=== PATIENT | female | born 1955 | race Caucasian/White ===

== ENCOUNTER 2016-09-14 11:44 | Inpatient (IN) | payer OTHER ==
[~2016-09-14] VITALS: Ht 154.9 cm; Wt 84.0 kg
[~2016-09-14 11:44] MED LIST: ATOR-24 PO; CHOL1CAP57 PO; CLOP1TAB15 PO; CLR10 PO; CYAN100048 PO; DOCU100C31 PO; DONE10TA12 PO; EFF75 PO; GLC/500 PO; INSDGI SC; LEVO88TA3 PO; LOSA25TA18 PO; MIRT15TA3 PO; MULT-506 PO; NXM/40 PO; PREG100C PO; RQP/5 PO; TRAM-10 PO; TRAZ50TA35 PO
[2016-09-14] MEDS ORDERED: ASPI81TA28 PO (12:22)
[2016-09-14] MEDS ORDERED: CYAN100048 PO (12:23)
[2016-09-14] MEDS ORDERED: SODIUM CHLORIDE 0.9% 1000ML 1,000 ML IV ONE (12:30)
[2016-09-14 12:37] LABS: HEMATOCRIT 32.5 % (37-47); MEAN CELL VOLUME 76.7 fL (80-100); MEAN CORPUSCULAR HEMOGLOBIN 24.1 pg (25-34); MEAN CORPUSCULAR HGB CONC 31.4 g/dl (32-36); MEAN PLATELET VOLUME 10.4 fL (7.4-10.4); PLATELET COUNT 209 K/uL (130-400); RED BLOOD COUNT 4.24 M/uL (4.2-5.4); WHITE BLOOD COUNT 14.07 K/uL (4.8-10.8)
[2016-09-14 12:46] LABS: PROTHROMBIN TIME (PATIENT) 11.1 SECONDS (9.0-12.0)
[2016-09-14 13:01] LABS: ALB/GLOB RATIO 0.9 (0.9-2); BUN/CREATININE RATIO 16.7 (10-20); CALCIUM 9.2 mg/dl (8.5-10.1); CREATININE 1.2 mg/dl (0.60-1.20); THYROID STIMULATING HORMONE 1.11 uIu/ml (0.300-4.500)
[2016-09-14 13:04] LABS: VEN BLD GAS O2 SATURATION 73.6 %; VEN BLOOD GAS BASE EXCESS 4.8 mmol/L
[2016-09-14 13:13] LABS: POINT OF CARE TROPONIN I 0.01 ng/ml (0-0.045)
[2016-09-14 13:14] LABS: ANISOCYTOSIS PRESENT; COMPLETE YES; EOSINOPHIL % 0.9 %; LYMPH ABS # 1.72 K/uL (1.2-3.4); LYMPHOCYTE % 12.2 %; NEUTROPHILS % 84.3 %; POLYCHROMASIA 1+; SPHEROCYTE 2+
[2016-09-14 13:15] LABS: POTASSIUM 4.4 mmol/L (3.5-5.1)
[2016-09-14] MEDS ORDERED: ONDANSETRON INJ 2 MG/ML 2 ML VIAL IV STA (13:15)
[2016-09-14 13:51] LABS: URINE APPEARANCE CLEAR (CLEAR); URINE NITRITE POS (NEG); URINE SPECIFIC GRAVITY 1.024 (1.000-1.030); UROBILINOGEN NEG (NEG); ZZURINE CULT IF INDIC CATH NO
[2016-09-14 13:55] LABS: MANUAL MICROSCOPIC REQUIRED? NO; REVIEW REQ? NO; URINE COLOR DK YELLOW
[2016-09-14 13:56] LABS: URINE BILIRUBIN NEG (NEG)
--- NOTE | 2016-09-14 13:59 | DIAGNOSTIC IMAGING REPORT ---
CHEST 2 VIEWS ROUTINE CLINICAL HISTORY: Weakness. Faint Left lower crackles COMPARISON STUDY: No previous studies for comparison. FINDINGS: The bones soft tissues and hemidiaphragms are normal. The cardiomediastinal silhouette is normal. The lungs are clear. The pulmonary vasculature is normal. IMPRESSION: Negative chest. Electronically signed by: Chris Toth M.D. 09/14/2016 1:58 PM Dictated Date/Time: 09/14/2016 1:56 PM
[2016-09-14] MEDS ORDERED: LEVAQUIN 750MG / 150ML D5W IV ONE (14:00)
[2016-09-14 14:01] LABS: CKMB/CK RATIO 0.6 (0-3.0); MAGNESIUM 2.1 mg/dl (1.8-2.4)
--- NOTE | 2016-09-14 14:16 | EMERGENCY ROOM VISIT NOTE ---
ED Visit Note First contact with patient: 12:10 This Patient was discussed with the physician Mortgage Servicing Specialist, Gus Mejia PA-C. The pertinent historical and physical exam findings were confirmed. I agree with the studies ordered and with the interpretations of these studies. I agree with the disposition and care plan.
[2016-09-14 15:09] VITALS: BP 119/69; PULSE 90; TEMP 36.6; O2SAT 94; Ht 154.9 cm; Wt 84.0 kg
[2016-09-14] MEDS ORDERED: DEXTROSE 50% 50 ML SYR IV PRN (15:15)
[2016-09-14] MEDS ORDERED: GLUCOSE 40% GEL 15 GM TUBE PO PRN (15:15)
[2016-09-14] MEDS ORDERED: GLUCAGON FOR INJ 1 MG VIAL SQ PRN (15:15)
[2016-09-14] MEDS ORDERED: ACETAMINOPHEN 325 MG TAB PO PRN (15:15)
[2016-09-14] MEDS ORDERED: TRAMADOL HCL 50 MG TAB PO PRN (15:15)
[2016-09-14] MEDS ORDERED: GLUCOSE 10 TABS/TUBE PO PRN (15:15)
[2016-09-14] MEDS ORDERED: ONDANSETRON INJ 2 MG/ML 2 ML VIAL IV PRN (15:15)
[2016-09-14] MEDS ORDERED: PHARMACY GLYCEMIC MGMT CONSULT SCH (16:09)
--- NOTE | 2016-09-14 16:10 | History and Physical ---
History & Physical Date & Time of Service: Sep 14, 2016 at 15:16 Chief Complaint: Weak/Nausea Primary Care Physician: Oseas Macdonald III, M.D. History of Present Illness Source: patient, family (daughter in law at bedside), clinic records This is a 61 y/o female with PMH of CVA in 2014 on ASA and Plavix, DM type 2, gastroparesis, GERD, fatty liver, hypothyroidism, depression, and other problems listed below who presents to the ED with generalized weakness and nausea. Pt's daughter in law reports recent severe constipation over past few weeks and bright red blood per rectum. She was found to have iron deficiency anemia with Hg of 8.5 on 09/05/16. She was transfused on 09/06/16. She was seen by Gaye Live of GI two days ago at which time Hg improved to 10.5. She was noted to be Hemoccult positive. She is scheduled for abdominal US, EGD, and colonoscopy. As per daughter in law patient was doing well aside from ongoing fatigue yesterday when caregiver assessed her. Then over past 24 hours she developed weakness and nausea. At baseline she has RLE> LLE weakness but today has increased weakness in bilateral legs. Usually she can ambulate unassisted or with cane but today she was unable to get out of her chair. Denies vomiting or abdominal pain. She ate normally yesterday and had cereal this morning. Constipation has improved on stool softener- now having 1 BM every 3 days. She did have watery stool yesterday and today. No further bright red blood per rectum in past few days. Pt has chronic speech difficulty secondary to prior CVA which is unchanged. She admits to feeling cold. She was afebrile when checked by caregiver and in ER. Pt denies weight change, dizziness, blurred vision, numbness, URI symptoms, cough, CP, SOB, dysuria, frequency, urgency, wounds or rash. Past Medical/Surgical History Medical Problems: (1) Anxiety Status: Chronic (2) Carotid stenosis Status: Chronic (3) CREST syndrome Status: Chronic (4) CVA (cerebral infarction) Permanent Comment: 2014 in perioperative setting Status: Chronic (5) DJD (degenerative joint disease), lumbar Status: Chronic (6) DM type 2 (diabetes mellitus, type 2) Status: Chronic (7) Esophagitis Status: Chronic (8) Gastroparesis Status: Chronic (9) Hyperlipidemia Status: Chronic (10) Hypothyroidism Status: Chronic (11) Iron deficiency anemia Status: Chronic (12) Kidney stone Status: Resolved (13) Myalgia and myositis Status: Chronic (14) PVD (peripheral vascular disease) Status: Chronic Surgical Problems: (1) H/O foot surgery Status: Chronic (2) History of hysterectomy Status: Chronic (3) History of spinal fusion Status: Chronic (4) S/P appendectomy Status: Resolved Family History Diabetes mellitus MOTHER FH: cancer FATHER (lung CA) MOTHER (breast and uterine CA) Social History Smoking Status: Former Smoker (quit in 2010. prior 1 ppd x 32 y) Alcohol Use: occasionally (rare) Drug Use: none Marital Status: single Housing status: lives alone ([facility] caregiver assistance 11a-5p daily) Occupational Status: unemployed Immunizations History of Influenza Vaccine: N/A History of Tetanus Vaccine?: No History of Pneumococcal: Unknown History of Hepatitis B Vaccine: No Multi-Drug Resistant Organisms History of MDRO: No Allergies Coded Allergies: Clarithromycin (Verified Allergy, Unknown, FEEL WEIRD, 09/14/16) Home Medications Scheduled Aspirin (Aspirin Ec), 81 MG PO DAILY Atorvastatin (Lipitor), 80 MG PO HS Clopidogrel (Plavix), 75 MG PO QAM Docusate Sodium (Docusate Sodium), 1 CAP PO BID Donepezil Hydrochloride (Aricept), 10 MG PO HS Esomeprazole Magnesium (Nexium), 40 MG PO QAM Insulin Glargine (Lantus), 58 UNITS SC QAM Levothyroxine Sodium (Levothyroxine Sodium), 88 MCG PO QAM Loratadine (Claritin), 10 MG PO HS Losartan Potassium (Cozaar), 25 MG PO QAM Metformin Hcl (Glucophage), 500 MG PO BID Mirtazapine (Remeron), 30 MG PO HS Multivitamin (Multivitamin), 1 TAB PO QAM Pregabalin (Lyrica), 100 MG PO BID Ropinirole Hydrochloride (Requip), 0.5 MG PO HS Trazodone Hcl (Trazodone), 50 MG PO HS Venlafaxine Hcl (Effexor), 75 MG PO DAILY Scheduled PRN Tramadol (Ultram), 50 MG PO Q6 PRN for Pain Review of Systems Ten point ROS performed with pertinent positives and negatives noted in HPI. Physical Exam Vital Signs Date Time Temp Pulse Resp B/P Pulse Ox O2 Delivery O2 Flow Rate FiO2 09/14/16 13:15 85 18 119/69 95 Room Air 09/14/16 11:56 93 Room Air 09/14/16 11:52 36.6 93 21 103/66 96 Room Air General Appearance: WD/WN, no apparent distress, + pertinent finding (mildly ill appearing 61 year old female, not in distress, daughter in law at bedside) Head: normocephalic, atraumatic Eyes: normal inspection, PERRL, EOMI ENT: hearing grossly normal, pharynx normal Neck: supple, trachea midline Respiratory/Chest: lungs clear, normal breath sounds, no respiratory distress Cardiovascular: regular rate, rhythm, no murmur, normal peripheral pulses Abdomen/GI: normal bowel sounds, soft, + pertinent finding (tender in RUQ and RLQ. figueroa sign negative. ) Extremities/Musculoskelatal: no calf tenderness, no pedal edema Neurologic/Psych: alert, normal mood/affect, oriented x 3, + pertinent finding (expressive aphasia at baseline per daughter in law; no facial droop; no focal motor deficit of upper extremities. R >L LE weakness, able to lift bilateral legs against gravity) Skin: normal color, warm/dry Diagnostics Laboratory Results Results Past 24 Hours Test 09/14/16 11:55 09/14/16 12:47 09/14/16 12:55 09/14/16 12:56 Range/Units White Blood Count 14.07 4.8-10.8 K/uL Red Blood Count 4.24 4.2-5.4 M/uL Hemoglobin 10.2 12.0-16.0 g/dL Hematocrit 32.5 37-47 % Mean Corpuscular Volume 76.7 80-100 fL Mean Corpuscular Hemoglobin 24.1 25-34 pg Mean Corpuscular Hemoglobin Concent 31.4 32-36 g/dl Platelet Count 209 130-400 K/uL Mean Platelet Volume 10.4 7.4-10.4 fL RDW Standard Deviation 55.7 36.4-46.3 fL RDW Coefficient of Variation 21.2 11.5-14.5 % Nucleated RBC Absolute Count (auto) 0.19 0-0 K/uL Neutrophils % (Manual) 84.3 % Lymphocytes % (Manual) 12.2 % Monocytes % (Manual) 2.6 % Eosinophils % (Manual) 0.9 % Nucleated Red Blood Cells % 1.4 % Neutrophils # (Manual) 11.86 1.4-6.5 K/uL Total Absolute Neutrophils 11.86 1.4-6.5 K/uL Lymphocytes # (Manual) 1.72 1.2-3.4 K/uL Total Absolute Lymphocytes 1.72 1.2-3.4 K/uL Monocytes # (Manual) 0.37 0.11-0.59 K/uL Eosinophils # (Manual) 0.13 0-0.5 K/uL Polychromasia 1+ Anisocytosis PRESENT Spherocytes 2+ Prothrombin Time 11.1 9.0-12.0 SECONDS Prothromb Time International Ratio 1.0 0.9-1.1 Activated Partial Thromboplast Time 26.1 21.0-31.0 SECONDS Partial Thromboplastin Ratio 1.0 Sodium Level 139 136-145 mmol/L Potassium Level 4.4 3.5-5.1 mmol/L Chloride Level 101 98-107 mmol/L Carbon Dioxide Level 27 21-32 mmol/L Anion Gap 11.0 3-11 mmol/L Blood Urea Nitrogen 20 7-18 mg/dl Creatinine 1.20 0.60-1.20 mg/dl Est Creatinine Clear Calc Drug Dose 48.4 ml/min Estimated GFR () 56.5 Estimated GFR (Non- 48.7 BUN/Creatinine Ratio 16.7 10-20 Random Glucose 213 70-99 mg/dl Calcium Level 9.2 8.5-10.1 mg/dl Magnesium Level 2.1 1.8-2.4 mg/dl Total Bilirubin 1.8 0.2-1 mg/dl Aspartate Amino Transf (AST/SGOT) 101 15-37 U/L Alanine Aminotransferase (ALT/SGPT) 33 12-78 U/L Alkaline Phosphatase 129 45-117 U/L Total Creatine Kinase 200 26-192 U/L Creatine Kinase MB 1.1 0.5-3.6 ng/ml Creatine Kinase MB Ratio 0.6 0-3.0 Total Protein 8.0 6.4-8.2 gm/dl Albumin 3.8 3.4-5.0 gm/dl Globulin 4.2 2.5-4.0 gm/dl Albumin/Globulin Ratio 0.9 0.9-2 Thyroid Stimulating Hormone (TSH) 1.110 0.300-4.500 uIu/ml Chemistry Specimen Hemolysis Bedside Lactic Acid Venous 2.11 0.90-1.70 mmol/L Venous Blood pH 7.44 7.36-7.41 Venous Blood Partial Pressure CO2 45 38.0-50.0 mmHg Venous Blood Partial Pressure O2 41 mmHg Venous Blood HCO3 30 mmol/L Venous Blood Oxygen Saturation 73.6 % Venous Blood Base Excess 4.8 mmol/L Bedside Troponin I 0.010 0-0.045 ng/ml FC-[id number]-Type Natriuretic Peptide 104 0-900 pg/ml Test 09/14/16 13:25 09/14/16 15:10 Range/Units Urine Color DK YELLOW Urine Appearance CLEAR CLEAR Urine pH 5.0 4.5-7.5 Urine Specific Berkey 1.024 1.000-1.030 Urine Protein 1+ NEG Urine Glucose (UA) NEG NEG Urine Ketones NEG NEG Urine Occult Blood 1+ NEG Urine Nitrite POS NEG Urine Bilirubin NEG NEG Urine Urobilinogen NEG NEG Urine Leukocyte Esterase SMALL NEG Urine WBC (Auto) 1-5 0-5 /hpf Urine RBC (Auto) 0-4 0-4 /hpf Urine Hyaline Casts (Auto) 1-5 0-5 /lpf Urine Epithelial Cells (Auto) 5-10 0-5 /lpf Urine Bacteria (Auto) NEG NEG Microbiology Results 09/14/16 Blood Culture, Received Pending 09/14/16 Blood Culture, Received Pending Diagnostic Radiology CHEST 2 VIEWS ROUTINE CLINICAL HISTORY: Weakness. Faint Left lower crackles COMPARISON STUDY: No previous studies for comparison. FINDINGS: The bones soft tissues and hemidiaphragms are normal. The cardiomediastinal silhouette is normal. The lungs are clear. The pulmonary vasculature is normal. IMPRESSION: Negative chest. EKG NSR, 87 bpm, nonspecific T wave abnormality in lateral leads, slightly more pronounced in lead I when compared to prior EKG Impression Assessment and Plan GENERALIZED WEAKNESS Initially met SIRS criteria with leukocytosis; borderline HR in 90s; POC lactic acid 2.1 -> repeat lactate pending; Afebrile; HD stable R/o infection- CXR clear; UA mildly abnormal but no urinary sx; check urine culture; blood cultures pending Received Levaquin and IVF's in ER Continue gentle IVF's Check CT head to r/o intracranial abnormality given hx of CVA PT and OT consults NAUSEA/ RUQ TENDERNESS AST trending up from recent outpatient labs on 09/12; alk phos and bilirubin continue to be elevated Check abdominal ultrasound Clear liquid diet for now Consider GI consult pending results of US HISTORY OF CVA Continue aspirin, Plavix, statin IRON DEFICIENCY ANEMIA In setting of rectal bleeding; no further bleeding in past few days S/p transfusion 09/06/16 Hg is stable from outpatient labs 09/12 EGD/ [place] scheduled for 10/03/16 DM TYPE 2 Reports of hypoglycemia at home Hold metformin On Lantus 58 units daily at home Consult pharmacy for glycemic management HYPERTENSION Stable; continue losartan GERD Continue PPI DVT PROPHYLAXIS SCDs CODE STATUS Full code per my discussion with the patient Patient seen in collaboration with Dr. Hodge. Please see her addendum. I have seen, examined and discussed this patient with Jami Scanlon and I agree with the above note. Patient presented with generalized weakness x2 days, worse today. Patient lives alone, has a caregiver, and normally ambulates independently. Patient was seen by home nurse yesterday, per daughter in law, with a normal check up. Patient does have a h/o CVA, with residual speech difficulties and right sided weakness. Today, the patient states that she just feels weak all over. She denies any fevers, chills, dysuria. She denies any abdominal pain, except on examination. She does endorse a several week h/o intermittent nausea. She reports a normal appetite and normal PO intake. She denies any vomiting. Vitals reviewed. PE: General- awake; alert; NAD Eyes- EOMI; no scleral icterus ENT- moist mucous membranes Neck- no stridor; trachea midline Lungs- CTA bilaterally; no wheezes/crackles Heart- RRR; no m/r/g Abdomen- soft; RUQ tenderness to palpation; no guarding; ND; nBS Back- no gross abnormalities Extremities- no c/c/e; no deformity Neuro- RUE and RLE strength 3/5; LUE and LLE 4+/5; slow speech Skin- no appreciable rash Labs, imaging and EKG reviewed. Generalized weakness - CT head pending (given h/o previous stroke). Urinalysis with +nitrate. Urine and blood cultures pending. CXR negative. Patient received a dose of Levaquin in the ED. Will hold on continuing antibiotics until culture data and additional imaging resulted as no clear source at this time. RUQ pain/nausea/LFT abnormality - LFT's were normal on 09/05. Elevated bilirubin and AST on 09/12 and elevated again on admission. GI had been planning on outpatient abdominal ultrasound. Will do here. Pending results may consider GI consult. Low clinical suspicion for cholecystitis at this time (ongoing issue, symptoms are not new, afebrile and normal vitals). Patient did also receive a dose of Levaquin in the ED; will hold on continuing pending additional test results. Continue home medications with the exception of holding metformin. Glycemic pharmacy consulted. VTE Prophylaxis VTE Risk Assessment Done? Y/N: Yes Risk Level: Moderate
--- NOTE | 2016-09-14 16:28 | Pharmacy Progress Note ---
Glycemic Control Intl Consult Date of Service Sep 14, 2016. Scope Glycemic Pharmacist consulted by Ileana Scanlon PA-C on 09/14/16 for glycemic control and to write orders per [facility] inpatient glycemic control protocol Objective Weight (Kilograms): 84.000 Accuchecks BSG (last 24hrs): Test 09/14/16 11:55 Random Glucose 213 mg/dl (70-99) Laboratory Data (last 24hrs) Test 09/14/16 11:55 Anion Gap 11.0 mmol/L BUN/Creatinine Ratio 16.7 Blood Urea Nitrogen 20 mg/dl Creatinine 1.20 mg/dl Potassium Level 4.4 mmol/L Sodium Level 139 mmol/L White Blood Count 14.07 K/uL Red Blood Count 4.24 M/uL Hemoglobin 10.2 g/dL Hematocrit 32.5 % Mean Corpuscular Volume 76.7 fL Mean Corpuscular Hemoglobin 24.1 pg Mean Corpuscular Hemoglobin Concent 31.4 g/dl Platelet Count 209 K/uL Mean Platelet Volume 10.4 fL Recent Pertinent Medications Outpatient Anti-diabetic Regimen: * Lantus 58 units QAM * Metfomrin 500mg PO BID * A1c = 7.2 % 08/25/15 Risk Factors for Insulin Resistance: * Infection: IV Levaquin, weakness, possible infection * Diet: Clears Assessment & Plan ASSESSMENT: * 61 yo type 2 diabetic, unknown control, latest A1c from a year ago was 7.2%, pt reports hypoglycemia at home. Admitted with nausea and weakness, recent diagnosis of iron deficient anemia. * Patient had her home dose of Lantus this morning at home (58 units), I will begin a reduced dose tomorrow morning, based on BSG, as this dose is covering her basal and prandial needs, and patient has had hypoglycemia at home. * ADA & AACE recommend a goal blood sugar range 140-180 mg/dl for the majority of critically ill & non-critically ill patients. However, more stringent targets may be selected in individual cases. I will start with this range to prevent hypoglycemia. Patient's BSG 213mg/dL on admission. PLAN FOR INPATIENT GLYCEMIC CONTROL: * A1c with AM labs * Holding outpatient oral diabetes medications * Basal insulin with LANTUS based on AM BSG * BSG < 100mg/dL - HOLD Lantus * BSG 100-180mg/dL - 40 units SQ Qam * BSG > 180mg/dL - 60 units SQ Qam * Correctional Insulin with NOVOLOG per scale ACHS or Q6hrs while NPO and at 0200 overnight tonight * Goal Range: Low 140 mg/dL - High 180 mg/dL * Correction Factor: 30 mg/dL/unit * Nutritional / Prandial insulin per carb ratio of 1 unit per 10 grams CHO consumed * Please note that the plan above was derived based on current level of insulin resistance and hospital stress. These recommendations are appropriate for inpatient admission only. Plan of care upon discharge will need to be reassessed to avoid potential outpatient hypo/hyperglycemia. Thank you.
[2016-09-14] MEDS: INSULIN ASPART 100 UNITS/ML 3 ML PEN SC SCH ×2 (17:00→20:58)
[2016-09-14 18:30] VITALS: BP 161/82; PULSE 85; TEMP 36.7; O2SAT 90
--- NOTE | 2016-09-14 18:35 | DIAGNOSTIC IMAGING REPORT ---
ULTRASOUND ABDOMEN COMPLETE CLINICAL HISTORY: Nausea. Generalized weakness.. COMPARISON STUDY: No priors. TECHNIQUE: Real-time, grayscale, and color flow sonography of the abdomen was performed. Images are reviewed in the transverse and longitudinal planes. FINDINGS: Liver: The liver is mildly enlarged and demonstrates diffusely increased echotexture consistent with hepatic steatosis. There is no intrahepatic biliary ductal dilatation. The main portal vein is patent. Gallbladder: The gallbladder is normal in appearance. No gallstones are identified. There is no gallbladder wall thickening or pericholecystic fluid. A sonographic San's sign is reportedly absent. The common bile duct measures up to 0.4 cm in diameter. Pancreas: The pancreas is suboptimally assessed. Visualized portions of the pancreatic head and body are grossly normal in appearance. Spleen: The spleen is mildly enlarged, measuring 13.3 cm in length. The splenic vein is patent. Kidneys: The kidneys demonstrate cortical atrophy. There is no hydronephrosis. The right kidney measures 10.3 cm in length and the left kidney measures 11.3 cm in length. No shadowing calculi are identified. Abdominal vasculature: The imaged IVC is normal in appearance. The abdominal aorta was not well visualized. Ascites: None. IMPRESSION: 1. Hepatomegaly and hepatic steatosis. 2. No gallstones are identified. 3. The kidneys demonstrate cortical atrophy and are without hydronephrosis. Electronically signed by: Christopher Zuniga M.D. 09/14/2016 6:34 PM Dictated Date/Time: 09/14/2016 6:32 PM
--- NOTE | 2016-09-14 19:23 | EMERGENCY ROOM VISIT NOTE ---
History First contact with patient: 12:10 Chief Complaint: WEAKNESS Stated Complaint: GENERALIZED WEAKNESS Nursing Triage Summary: Patient is post blood transfusion x1 week and reports weakness and not eating for the last day. History of Present Illness The patient is a 61 year old female who presents to the Emergency Room with complaints of worsening weakness over the past one day. The patient is accompanied by 2 family members as well as her in-home caregiver. The patient has a past history of stroke that makes it difficult for her to speak. The patient has a recent history of constipation symptoms and anemia that did require transfusion about 1 week ago. The patient has upcoming appointments with GI for scoping and outpatient imaging studies. The patient is typically self-sufficient at home for 18 hours a day. She is diabetic and is able to control her sugars with insulin and diet. The patient does have 6 hours of in- home care every day, and the caregiver states the patient was not able to get up out of bed or her chair today. Usually the patient does not have difficulty with ambulation or self-care, but that is not the case today. The patient has not reportedly had a fever or cough. No distinct chest pain. She has had ongoing abdominal cramping from her constipation, but this does improve with bowel movements. No reported urinary discomfort. The patient rates her discomfort a 4/10. Review of Systems More than 10 systems were reviewed and otherwise negative with the exception of history of present illness. Past Medical/Surgical History Medical Problems: (1) Anxiety (2) Carotid stenosis (3) CREST syndrome (4) CVA (cerebral infarction) (5) DJD (degenerative joint disease), lumbar (6) DM type 2 (diabetes mellitus, type 2) (7) Esophagitis (8) Gastroparesis (9) Generalized weakness (10) Hyperlipidemia (11) Hypothyroidism (12) Iron deficiency anemia (13) Kidney stone (14) Myalgia and myositis (15) PVD (peripheral vascular disease) Surgical Problems: (1) H/O foot surgery (2) History of hysterectomy (3) History of spinal fusion (4) S/P appendectomy Family History Diabetes mellitus MOTHER FH: cancer FATHER (lung CA) MOTHER (breast and uterine CA) Social History Smoking Status: Former Smoker (quit in 2010. prior 1 ppd x 32 y) Alcohol Use: occasionally Drug Use: none Marital Status: single Housing Status: lives with family Occupation Status: unemployed Current/Historical Medications Scheduled Aspirin (Aspirin Ec), 81 MG PO DAILY Atorvastatin (Lipitor), 80 MG PO HS Clopidogrel (Plavix), 75 MG PO QAM Docusate Sodium (Docusate Sodium), 1 CAP PO BID Donepezil Hydrochloride (Aricept), 10 MG PO HS Esomeprazole Magnesium (Nexium), 40 MG PO QAM Insulin Glargine (Lantus), 58 UNITS SC QAM Levothyroxine Sodium (Levothyroxine Sodium), 88 MCG PO QAM Loratadine (Claritin), 10 MG PO HS Losartan Potassium (Cozaar), 25 MG PO QAM Metformin Hcl (Glucophage), 500 MG PO BID Mirtazapine (Remeron), 30 MG PO HS Multivitamin (Multivitamin), 1 TAB PO QAM Pregabalin (Lyrica), 100 MG PO BID Ropinirole Hydrochloride (Requip), 0.5 MG PO HS Trazodone Hcl (Trazodone), 50 MG PO HS Venlafaxine Hcl (Effexor), 75 MG PO DAILY Scheduled PRN Tramadol (Ultram), 50 MG PO Q6 PRN for Pain Allergies Coded Allergies: Clarithromycin (Verified Allergy, Unknown, FEEL WEIRD, 09/14/16) Physical Exam Vital Signs Date Time Temp Pulse Resp B/P Pulse Ox O2 Delivery O2 Flow Rate FiO2 09/14/16 14:44 91 20 93 09/14/16 13:15 119/69 09/14/16 13:15 85 18 119/69 95 Room Air 09/14/16 13:14 89 16 95 09/14/16 12:44 88 15 95 09/14/16 11:56 93 Room Air 09/14/16 11:52 36.6 93 21 103/66 96 Room Air 09/14/16 11:48 103/66 Pain Rating (0-10): 0 Physical Exam VITALS: Vitals are noted on the nurse's note and reviewed by myself. Vital signs stable. GENERAL: Pleasant appearing white female who can answer short questions. HEAD: Normocephalic atraumatic. HEART: Regular rate and rhythm without murmurs gallops or rubs. LUNGS: Essentially clear bilateral, however there are some fine crackles appreciated in the left lower lobe ABDOMEN: Positive normal bowel sounds x 4. Soft with mild firmness but no distinct abdominal pain. MUSCULOSKELETAL: No muscle atrophy, erythema, or edema noted. Full range of motion without joint tenderness in all extremities. NEURO: Patient was alert and oriented to person place and time. Medical Decision & Procedures ER Provider Diagnostic Interpretation: CHEST 2 VIEWS ROUTINE CLINICAL HISTORY: Weakness. Faint Left lower crackles COMPARISON STUDY: No previous studies for comparison. FINDINGS: The bones soft tissues and hemidiaphragms are normal. The cardiomediastinal silhouette is normal. The lungs are clear. The pulmonary vasculature is normal. IMPRESSION: Negative chest. Laboratory Results 09/14/16 11:55 Red Blood Count 4.24, Mean Corpuscular Volume 76.7, Mean Corpuscular Hemoglobin 24.1, Mean Corpuscular Hemoglobin Concent 31.4, Mean Platelet Volume 10.4 09/14/16 11:55 Test 09/14/16 11:55 09/14/16 12:47 09/14/16 12:55 09/14/16 12:56 White Blood Count 14.07 K/uL (4.8-10.8) Red Blood Count 4.24 M/uL (4.2-5.4) Hemoglobin 10.2 g/dL (12.0-16.0) Hematocrit 32.5 % (37-47) Mean Corpuscular Volume 76.7 fL (80-100) Mean Corpuscular Hemoglobin 24.1 pg (25-34) Mean Corpuscular Hemoglobin Concent 31.4 g/dl (32-36) Platelet Count 209 K/uL (130-400) Mean Platelet Volume 10.4 fL (7.4-10.4) RDW Standard Deviation 55.7 fL (36.4-46.3) RDW Coefficient of Variation 21.2 % (11.5-14.5) Nucleated RBC Absolute Count (auto) 0.19 K/uL (0-0) Neutrophils % (Manual) 84.3 % Lymphocytes % (Manual) 12.2 % Monocytes % (Manual) 2.6 % Eosinophils % (Manual) 0.9 % Nucleated Red Blood Cells % 1.4 % Neutrophils # (Manual) 11.86 K/uL (1.4-6.5) Total Absolute Neutrophils 11.86 K/uL (1.4-6.5) Lymphocytes # (Manual) 1.72 K/uL (1.2-3.4) Total Absolute Lymphocytes 1.72 K/uL (1.2-3.4) Monocytes # (Manual) 0.37 K/uL (0.11-0.59) Eosinophils # (Manual) 0.13 K/uL (0-0.5) Polychromasia 1+ Anisocytosis PRESENT Spherocytes 2+ Prothrombin Time 11.1 SECONDS (9.0-12.0) Prothromb Time International Ratio 1.0 (0.9-1.1) Activated Partial Thromboplast Time 26.1 SECONDS (21.0-31.0) Partial Thromboplastin Ratio 1.0 Anion Gap 11.0 mmol/L (3-11) Est Creatinine Clear Calc Drug Dose 48.4 ml/min Estimated GFR () 56.5 Estimated GFR (Non- 48.7 BUN/Creatinine Ratio 16.7 (10-20) Calcium Level 9.2 mg/dl (8.5-10.1) Magnesium Level 2.1 mg/dl (1.8-2.4) Total Bilirubin 1.8 mg/dl (0.2-1) Aspartate Amino Transf (AST/SGOT) 101 U/L (15-37) Alanine Aminotransferase (ALT/SGPT) 33 U/L (12-78) Alkaline Phosphatase 129 U/L (45-117) Total Creatine Kinase 200 U/L (26-192) Creatine Kinase MB 1.1 ng/ml (0.5-3.6) Creatine Kinase MB Ratio 0.6 (0-3.0) Total Protein 8.0 gm/dl (6.4-8.2) Albumin 3.8 gm/dl (3.4-5.0) Globulin 4.2 gm/dl (2.5-4.0) Albumin/Globulin Ratio 0.9 (0.9-2) Thyroid Stimulating Hormone (TSH) 1.110 uIu/ml (0.300-4.500) Chemistry Specimen Hemolysis Bedside Lactic Acid Venous 2.11 mmol/L (0.90-1.70) Venous Blood pH 7.44 (7.36-7.41) Venous Blood Partial Pressure CO2 45 mmHg (38.0-50.0) Venous Blood Partial Pressure O2 41 mmHg Venous Blood HCO3 30 mmol/L Venous Blood Oxygen Saturation 73.6 % Venous Blood Base Excess 4.8 mmol/L Bedside Troponin I 0.010 ng/ml (0-0.045) EC-Ezv-H-Type Natriuretic Peptide 104 pg/ml (0-900) Test 09/14/16 13:25 Urine Color DK YELLOW Urine Appearance CLEAR (CLEAR) Urine pH 5.0 (4.5-7.5) Urine Specific [place] 1.024 (1.000-1.030) Urine Protein 1+ (NEG) Urine Glucose (UA) NEG (NEG) Urine Ketones NEG (NEG) Urine Occult Blood 1+ (NEG) Urine Nitrite POS (NEG) Urine Bilirubin NEG (NEG) Urine Urobilinogen NEG (NEG) Urine Leukocyte Esterase SMALL (NEG) Urine WBC (Auto) 1-5 /hpf (0-5) Urine RBC (Auto) 0-4 /hpf (0-4) Urine Hyaline Casts (Auto) 1-5 /lpf (0-5) Urine Epithelial Cells (Auto) 5-10 /lpf (0-5) Urine Bacteria (Auto) NEG (NEG) Medications Administered Medications (Trade) Dose Ordered Sig/Julian Route Start Time Stop Time Status Last Admin Dose Admin Sodium Chloride (Nss 1000ml) 1,000 ml @ 250 mls/hr Q4H ONCE IV 09/14/16 12:30 09/14/16 16:29 DC 09/14/16 13:15 250 MLS/HR Ondansetron HCl (Zofran Inj) 4 mg NOW STAT IV 09/14/16 13:15 09/14/16 13:16 DC 09/14/16 13:31 4 MG Levofloxacin (Levaquin / D5W) 750 mg NOW ONCE IV 09/14/16 14:00 09/14/16 14:01 DC 09/14/16 14:16 750 MG ED Course Physical exam and history were performed. Nursing notes and EMR were reviewed. Patient appears to have generalized weakness for the past one day. The patient' s course is somewhat complicated due to her past history of stroke. The patient has had multiple visits to her primary care physician the past few weeks. IV access was established and labs were obtained. The patient was hydrated and medicated as above. Chest x-ray was performed. The patient was placed on a monitor and storage bin tender. The patient blood work is as above and was reviewed. She does have an elevated white blood cell count of greater than 14,000. Additionally she has elevated lactic acid of greater than 2. The patient is anemic, however this is essentially unchanged from 48 hours ago on outpatient lab testing. She does not have significant gross electrolyte imbalance. Troponin is negative. Cath urine was performed and may show a small signs of infection. Blood and urine cultures are pending. Chest x-ray is without acute process. I discussed the case with my attending physician, Dr. Mei, who also independently evaluated the patient. We have concern that the patient lives at home and now has an elevated white blood cell count with a positive lactic acid. Combined with her weakness and diabetic history and there is concern the patient may be septic. The patient was started on Levaquin here in the department. I discussed the case with the on-call [facility] hospitalist, who agreed to evaluate the patient here in the department. Please see their dictation for further patient course, plan, and disposition. The chart was completed utilizing [employer] Speech Voice Recognition Software. Grammatical errors, random word insertions, pronoun errors, and incomplete sentences are an occasional consequence of this system due to software limitations, ambient noise, and hardware issues. Any formal questions or concerns about the content, text, or information contained within the body of this dictation should be directly addressed to the provider for clarification. . Medical Decision Differential diagnosis: Etiologies such as sepsis, UTI, pneumonia, metabolic, electrolyte abnormalities , cardiac sources, intracerebral event, toxicologic, neurologic, as well as others were entertained. Impression Primary Impression: Generalized weakness Additional Impressions: Anemia SIRS (systemic inflammatory response syndrome) Departure Information Dispostion Admitted as an inpatient Condition GOOD Referrals Oseas Macdonald III, M.D. (PCP) Forms HOME CARE DOCUMENTATION FORM, IMPORTANT VISIT INFORMATION Patient Instructions My [facility] Problem Qualifiers
[2016-09-14] MEDS: SODIUM CHLORIDE 0.9% 1000ML 1,000 ML IV SCH (19:31)
[2016-09-14] MEDS: PREGABALIN 100 MG CAP PO SCH (20:55)
[2016-09-14] MEDS: DOCUSATE SODIUM 100 MG CAP PO SCH (20:55)
[2016-09-14] MEDS: DONEPEZIL HCL 10 MG TAB PO SCH (20:56)
[2016-09-14] MEDS: LORATADINE 10 MG TAB PO SCH (20:56)
[2016-09-14] MEDS: ATORVASTATIN 40 MG TAB PO SCH (20:57)
[2016-09-14] MEDS: TRAZODONE HCL 50 MG TAB PO SCH (20:57)
[2016-09-14] MEDS: MIRTAZAPINE TAB 15 MG TAB PO SCH (20:57)
[2016-09-14] MEDS: ROPINIROLE HCL 0.25 MG TAB PO SCH (20:58)
--- NOTE | 2016-09-14 22:53 | DIAGNOSTIC IMAGING REPORT ---
CT SCAN OF THE BRAIN WITHOUT IV CONTRAST CLINICAL HISTORY: Nausea and weakness. COMPARISON STUDY: CT brain dated 01/01/2015. TECHNIQUE: Unenhanced axial CT scan of the brain is performed from the vertex to the skull base. The examination is modestly degraded by motion artifact. CT DOSE: 537.48 mGy.cm FINDINGS: Brain parenchyma: Left MCA territory encephalomalacia is new from 01/01/2015 and consistent with previous left MCA territory infarct. There is mild associated ex vacuo dilatation of the left lateral ventricle. There are age-related involutional changes noting mild subcortical and periventricular microangiopathic change. There is no hemorrhage, mass effect, or evidence of acute territorial ischemia by CT criteria. Gavin-white matter is preserved. No extra-axial fluid collection is seen. Ventricles, sulci, cisterns: Prominent secondary to involutional change. Intracranial vasculature: There is atherosclerotic calcification of the cavernous carotid and vertebral arteries. Calvarium: Unremarkable. Sinuses and mastoids: The visualized paranasal sinuses are clear. The mastoid air cells are well pneumatized. Orbits: The bony orbits are grossly intact. IMPRESSION: 1. There is no hemorrhage, mass effect, or evidence of acute territorial ischemia by CT criteria. 2. Left MCA territory encephalomalacia is new from the 01/01/2015 examination and consistent with interval infarct. This is not acute. Electronically signed by: Christopher Zuniga M.D. 09/14/2016 10:52 PM Dictated Date/Time: 09/14/2016 10:49 PM
[2016-09-14 23:51] VITALS: BP 90/67; PULSE 106; TEMP 36.8; O2SAT 92
[2016-09-15] MEDS ORDERED: INSULIN ASPART 100 UNITS/ML 3 ML PEN SC ONE (02:00)
[2016-09-15] MEDS: SODIUM CHLORIDE 0.9% 1000ML 1,000 ML IV SCH ×2 (04:15→16:38)
--- NOTE | 2016-09-15 06:22 | Clinical Documentation Query ---
TEN Crespo : CLINICAL DOCUMENTATION QUERY Patient is a 61 year old female presenting for evaluation and treatment of weakness, SIRS, and nausea. H&P notes a PMH that includes CVA in 2015 and physical examination documentation makes note of RUE and RLE weakness, greater than LUE/LLE weakness. Consider clarification as suggested below, as clinically appropriate, as these clinical findings cannot be assumed by the coding professional to be synonymous with the terminology listed below. Thank you. In your clinical opinion is this patient being managed for: ( ) Right hemiparesis secondary to prior CVA ( ) Other explanation of clinical findings (Please Explain) ( ) Unable to determine (Please Define) ( ) Need to Discuss ( ) Not Agree The medical record reflects the following clinical findings, treatment, and risk factors. Clinical Indicators: As above Treatment: Home caregiver, sequelae of prior stroke Risk Factors: Known CVA Please clarify and document your clinical opinion in the progress notes and discharge summary. Terms such as "probable", "suspected", "likely", "questionable", "possible", or "still to be ruled out" are acceptable. IF IN AGREEMENT, YOU MUST DOCUMENT ABOVE DIAGNOSTIC STATEMENT IN DAILY PROGRESS NOTES AND DISCHARGE SUMMARY. This document is not part of the patient's record. Thank You, Bert Flannery, RN [phone]
[2016-09-15] MEDS: INSULIN ASPART 100 UNITS/ML 3 ML PEN SC SCH ×4 (06:30→20:53)
[2016-09-15] MEDS: LEVOTHYROXINE 88 MCG TAB PO SCH (06:58)
[2016-09-15 07:02] VITALS: BP 74/48; PULSE 106; TEMP 36.6; O2SAT 94
[2016-09-15] MEDS: PREGABALIN 100 MG CAP PO SCH ×2 (07:42→20:49)
[2016-09-15] MEDS: CLOPIDOGREL BISULFATE 75 MG TAB PO SCH (07:43)
[2016-09-15] MEDS: PANTOprazole SOD 40 MG TAB PO SCH (07:43)
[2016-09-15] MEDS: MULTIVITAMIN TAB PO SCH (07:43)
[2016-09-15] MEDS: ASPIRIN 81 MG ECTAB PO SCH (07:43)
[2016-09-15] MEDS: LOSARTAN POTASSIUM 25 MG TAB PO SCH (07:43)
[2016-09-15] MEDS: DOCUSATE SODIUM 100 MG CAP PO SCH ×2 (07:44→20:50)
[2016-09-15] MEDS: VENLAFAXINE HCL XR 75 MG CAPXR PO SCH (07:48)
[2016-09-15] MEDS ORDERED: VENLAFAXINE HCL 50 MG TAB PO SCH (08:00)
[2016-09-15 09:13] LABS: HEMATOCRIT 29.9 % (37-47); MEAN CELL VOLUME 76.5 fL (80-100); MEAN CORPUSCULAR HEMOGLOBIN 23.3 pg (25-34); MEAN CORPUSCULAR HGB CONC 30.4 g/dl (32-36); MEAN PLATELET VOLUME 10.3 fL (7.4-10.4); PLATELET COUNT 188 K/uL (130-400); RED BLOOD COUNT 3.91 M/uL (4.2-5.4); WHITE BLOOD COUNT 15.43 K/uL (4.8-10.8)
[2016-09-15 09:27] LABS: CREATININE 0.91 mg/dl (0.60-1.20); ESTIMATED AVERAGE GLUCOSE 128 mg/dl; HA1C FLAG Normal (Normal)
[2016-09-15 09:28] LABS: CALCIUM 8.7 mg/dl (8.5-10.1)
--- NOTE | 2016-09-15 13:53 | Pharmacy Progress Note ---
Glycemic Control: Progress Nt Date of Service Sep 15, 2016. Scope Glycemic Pharmacist consulted by Iris Scanlon on 09/14/16 for glycemic control and to write orders per [facility] inpatient glycemic control protocol. Objective Accuchecks BSG (last 24hrs): Test 09/14/16 18:37 09/14/16 20:17 09/15/16 02:05 09/15/16 08:23 Bedside Glucose 139 mg/dl (70-90) 136 mg/dl (70-90) 109 mg/dl (70-90) Random Glucose 100 mg/dl (70-99) Laboratory Data (last 24hrs) Test 09/15/16 08:23 Anion Gap 7.0 mmol/L BUN/Creatinine Ratio 14.0 Blood Urea Nitrogen 13 mg/dl Creatinine 0.91 mg/dl Hemoglobin A1c 6.1 % Potassium Level 4.0 mmol/L Sodium Level 138 mmol/L White Blood Count 15.43 K/uL HbA1c: Test 09/15/16 08:23 Hemoglobin A1c 6.1 % (4.5-5.6) H Recent Pertinent Medications Outpatient Anti-diabetic Regimen: * Lantus 58 units QAM * Metformin 500mg PO BID * A1c = 6.1% 09/15/16 The patient is currently receiving: * Basal insulin: currently being held, received 58 units REPLACER * Correctional Insulin: NovoLog Correction per scale AC/HS Goal Range: Low 140 mg/dL - High 180 mg/dL Correction Factor: 30 mg/dL/unit * Prandial insulin: Per carb ratio of 1 unit per 10 grams CHO consumed * Oral Agents: holding on admission Risk Factors for Insulin Resistance: * Infection: * IVF: * Diet: Assessment & Plan ASSESSMENT: 09/14/16 * 61 yo type 2 diabetic, unknown control, latest A1c from a year ago was 7.2%, pt reports hypoglycemia at home. Admitted with nausea and weakness, recent diagnosis of iron deficient anemia. * Patient had her home dose of Lantus this morning at home (58 units), I will begin a reduced dose tomorrow morning, based on BSG, as this dose is covering her basal and prandial needs, and patient has had hypoglycemia at home. 09/15/16 * BSGs remain below goal range this AM despite only receiving Lantus yesterday and metformin on hold * hold Lantus today (hypoglycemia at home) and reduce dose based on a TOTAL daily need of 58 units * NovoLog parameters have not yet been tested * continue for now and titrate per response * A1c 6.1% and patient c/o hypoglycemia at home * may need reduction of Lantus upon discharge and follow up with PCP/endo * ADA & AACE recommend a goal blood sugar range 140-180 mg/dl for the majority of critically ill & non-critically ill patients. However, more stringent targets may be selected in individual cases. I will start with this range to prevent hypoglycemia. Patient's BSG 213mg/dL on admission. PLAN FOR INPATIENT GLYCEMIC CONTROL: * A1c resulted * add to discharge instructions * Holding outpatient oral diabetes medications * Basal insulin with LANTUS SQ q AM * on 09/15 - hold dose * on 09/16 - begin with 15 units daily * Correctional Insulin with NOVOLOG per scale ACHS or Q6hrs while NPO * Goal Range: Low 140 mg/dL - High 180 mg/dL * Correction Factor: 30 mg/dL/unit * Nutritional / Prandial insulin per carb ratio of 1 unit per 10 grams CHO consumed RECOMMENDATIONS FOR DISCHARGE: * May need reduction of Lantus at discharge since c/o hypoglycemia * await specific recommendations based on inpatient response to lowered dose * Please note that the plan above was derived based on current level of insulin resistance and hospital stress. These recommendations are appropriate for inpatient admission only. Plan of care upon discharge will need to be reassessed to avoid potential outpatient hypo/hyperglycemia. Thank you.
[2016-09-15 15:16] VITALS: BP 114/72; PULSE 100; TEMP 36.7; O2SAT 92
--- NOTE | 2016-09-15 18:12 | Progress Note ---
Medicine Progress Note Date & Time of Visit: Sep 15, 2016 at 17:51. Subjective Pt was seen and examined Lying in bed with no acute distress Pt said that she feels weak she continue to have abdominal pain denies any chest pain, palpitation and dizziness spoke to daughter in law today over the phone, and gave her an update on patient health. Objective Last 8 Hrs Date Time Temp Pulse Resp B/P Pulse Ox O2 Delivery O2 Flow Rate FiO2 09/15/16 16:00 Room Air 09/15/16 15:16 36.7 100 18 114/72 92 Room Air Physical Exam: General- obese, no distress Head- atraumatic Eyes- PERRL, EOMI ENT- oropharynx clear Neck- supple, no JVD Lungs-No wheezing, no crackles Heart- regular rhythm; no murmur Abdomen- normal bowel sounds, +tenderness RUQ on palpation Extremities- no calf tenderness Neuro- alert, oriented, PERRL, EOMI; no facial palsy Skin- warm & dry Laboratory Results: Last 24 Hours Test 09/14/16 18:37 09/14/16 20:17 09/15/16 02:05 09/15/16 07:25 Bedside Glucose 139 mg/dl 136 mg/dl 109 mg/dl 100 mg/dl Test 09/15/16 08:23 09/15/16 11:38 09/15/16 16:16 White Blood Count 15.43 K/uL Red Blood Count 3.91 M/uL Hemoglobin 9.1 g/dL Hematocrit 29.9 % Mean Corpuscular Volume 76.5 fL Mean Corpuscular Hemoglobin 23.3 pg Mean Corpuscular Hemoglobin Concent 30.4 g/dl RDW Standard Deviation 55.3 fL RDW Coefficient of Variation 21.4 % Platelet Count 188 K/uL Mean Platelet Volume 10.3 fL Nucleated RBC Absolute Count (auto) 0.13 K/uL Nucleated Red Blood Cells % 0.8 % Sodium Level 138 mmol/L Potassium Level 4.0 mmol/L Chloride Level 102 mmol/L Carbon Dioxide Level 29 mmol/L Anion Gap 7.0 mmol/L Blood Urea Nitrogen 13 mg/dl Creatinine 0.91 mg/dl Est Creatinine Clear Calc Drug Dose 63.8 ml/min Estimated GFR () 78.9 Estimated GFR (Non- 68.1 BUN/Creatinine Ratio 14.0 Random Glucose 100 mg/dl Estimated Average Glucose 128 mg/dl Hemoglobin A1c 6.1 % Calcium Level 8.7 mg/dl Total Bilirubin 1.6 mg/dl Direct Bilirubin 0.3 mg/dl Aspartate Amino Transf (AST/SGOT) 83 U/L Alanine Aminotransferase (ALT/SGPT) 27 U/L Alkaline Phosphatase 122 U/L Total Protein 7.5 gm/dl Albumin 3.2 gm/dl Bedside Glucose 119 mg/dl 101 mg/dl Date/Time Source Procedure Growth Status 09/14/16 19:05 Urine , Clean Catch Urine Culture - Preliminary NO GROWTH - LESS THAN 1,000 COLONIES/... Resulted Assessment & Plan GENERALIZED WEAKNESS Possible related to poor oral intake Needd to R/o infection Cxr on admission negative CT head negative for any intracranial abnormality WBC elevated on admission WBC increased today, afebrile Blood cx pending, urine cx no growth Received Levaquin and IVF's in ER Continue gentle IVF's Continue PT/OT RUQ abdominal pain associated with nausea Elevated liver enzymes on admission Abdominal u/s showed Hepatomegaly and hepatic steatosis and No gallstones are identified. Continue clear liquid diet Liver enzymes trending down continue monitor pt Leukocytosis Afebrile WBC trending up received one dose levaquin in the ER will check procalcitonin urine cx no growth blood cx pending continue monitor cbc HISTORY OF CVA Continue aspirin, Plavix, statin Stable IRON DEFICIENCY ANEMIA denies any active bleeding S/p transfusion 09/06/16 Hgb on admission was 10.2 Hgb 9.1 today possible dilutional EGD/ [facility] scheduled for 10/03/16 Continue monitor cbc DM TYPE 2 Recent hba1c 6.1 (09/15/16) Well controlled Reports of hypoglycemia at home Hold metformin On Lantus 58 units daily at home pharmacy consulted for glycemic management Consider to decrease lantus upon discharge due to the hypoglycemic episodes HYPERTENSION Continue losartan Stable GERD Continue PPI DVT PROPHYLAXIS SCDs CODE STATUS FULL CODE Current Inpatient Medications: Current Inpatient Medications Medications (Trade) Dose Ordered Sig/Julian Route Start Time Stop Time Status Last Admin Dose Admin Acetaminophen (Tylenol Tab) 650 mg Q4H PRN PO 09/14/16 15:15 10/14/16 15:14 Ondansetron HCl (Zofran Inj) 4 mg Q6H PRN IV 09/14/16 15:15 10/14/16 15:14 09/14/16 17:25 4 MG Glucose (Glucose 40% Gel) 15-30 GRAMS 15 GRAMS... UD PRN PO 09/14/16 15:15 10/14/16 15:14 Glucose (Glucose Chew Tab) 4-8 Tablets 4 Tabl... UD PRN PO 09/14/16 15:15 10/14/16 15:14 Dextrose (Dextrose 50% 50ML Syringe) 25-50ML OF 50% DW IV FOR... UD PRN IV 09/14/16 15:15 10/14/16 15:14 Glucagon (Glucagon Inj) 1 mg UD PRN SQ 09/14/16 15:15 10/14/16 15:14 Miscellaneous Information (Consult Glycemic Management Pharmacy) 1 ea UD N/A 09/14/16 16:09 10/14/16 16:08 Atorvastatin Calcium (Lipitor Tab) 80 mg HS PO 09/14/16 21:00 10/14/16 20:59 09/14/16 20:57 80 MG Docusate Sodium (coLACE CAP) 100 mg BID PO 09/14/16 20:00 10/14/16 20:59 09/15/16 07:44 100 MG Donepezil HCl (Aricept Tab) 10 mg HS PO 09/14/16 21:00 10/14/16 20:59 09/14/16 20:56 10 MG Levothyroxine Sodium (Synthroid Tab) 88 mcg DAILYBB PO 09/15/16 06:30 10/15/16 06:59 09/15/16 06:58 88 MCG Loratadine (Claritin Tab) 10 mg HS PO 09/14/16 21:00 10/14/16 20:59 09/14/16 20:56 10 MG Losartan Potassium (coZAAR TAB) 25 mg QAM PO 09/15/16 08:00 10/15/16 08:59 09/15/16 07:43 25 MG Mirtazapine (Remeron Tab) 30 mg HS PO 09/14/16 21:00 10/14/16 20:59 09/14/16 20:57 30 MG Multivitamins (Multivitamin Tab) 1 tab QAM PO 09/15/16 08:00 10/15/16 08:59 09/15/16 07:43 1 TAB Pregabalin (Lyrica Cap) 100 mg BID PO 09/14/16 20:00 10/14/16 20:59 09/15/16 07:42 100 MG Ropinirole HCl (Requip Tab) 0.5 mg HS PO 09/14/16 21:00 10/14/16 20:59 09/14/16 20:58 0.5 MG Tramadol HCl (Ultram Tab) 50 mg Q6 PRN PO 09/14/16 15:15 10/14/16 15:14 09/14/16 23:15 50 MG Trazodone HCl (Desyrel Tab) 50 mg HS PO 09/14/16 21:00 10/14/16 20:59 09/14/16 20:57 50 MG Pantoprazole Sodium 40 mg 40 mg QAM PO 09/15/16 08:00 10/15/16 08:59 09/15/16 07:43 40 MG Sodium Chloride (Nss 1000ml) 1,000 ml @ 80 mls/hr [id number] IV 09/14/16 15:15 10/14/16 15:14 09/15/16 16:38 80 MLS/HR Aspirin (Ecotrin Tab) 81 mg DAILY PO 09/15/16 08:00 10/15/16 08:59 09/15/16 07:43 81 MG Clopidogrel Bisulfate (plAVix TAB) 75 mg QAM PO 09/15/16 08:00 10/15/16 08:59 09/15/16 07:43 75 MG Insulin Aspart (novoLOG ASPART) SLIDING SCALE ACHS SC 09/14/16 17:00 10/14/16 16:59 09/15/16 13:01 3 UNITS Insulin Glargine (Lantus Solostar Pen) DAILY SC 09/15/16 08:00 10/15/16 08:59 Future hold Venlafaxine HCl (effeXOR EXTENDED REL CAP) 75 mg DAILY PO 09/15/16 08:00 10/15/16 07:59 09/15/16 07:48 75 MG
[2016-09-15] MEDS: TRAZODONE HCL 50 MG TAB PO SCH (20:49)
[2016-09-15] MEDS: DONEPEZIL HCL 10 MG TAB PO SCH (20:49)
[2016-09-15] MEDS: LORATADINE 10 MG TAB PO SCH (20:49)
[2016-09-15] MEDS: MIRTAZAPINE TAB 15 MG TAB PO SCH (20:50)
[2016-09-15] MEDS: ATORVASTATIN 40 MG TAB PO SCH (20:50)
[2016-09-15] MEDS: ROPINIROLE HCL 0.25 MG TAB PO SCH (20:50)
[2016-09-15 23:50] VITALS: BP 91/58; PULSE 91; TEMP 36.7; O2SAT 95
[2016-09-16] VITALS (9 sets, daily range): BP systolic 66–131; BP diastolic 48–90; PULSE 87–93; TEMP 36.4–36.7; O2SAT 92–93
[2016-09-16] MEDS: SODIUM CHLORIDE 0.9% 1000ML 1,000 ML IV SCH ×2 (04:51→17:15)
[2016-09-16] MEDS: LEVOTHYROXINE 88 MCG TAB PO SCH (06:42)
[2016-09-16 07:00] LABS: MEAN CELL VOLUME 77.8 fL (80-100); MEAN CORPUSCULAR HEMOGLOBIN 23.3 pg (25-34); MEAN PLATELET VOLUME 10.3 fL (7.4-10.4); PLATELET COUNT 185 K/uL (130-400); RED BLOOD COUNT 3.47 M/uL (4.2-5.4); WHITE BLOOD COUNT 8.83 K/uL (4.8-10.8)
[2016-09-16 07:30] LABS: ANISOCYTOSIS PRESENT; BASO ABS # 0.08 K/uL (0-0.2); BASOPHIL % 0.9 %; COMPLETE YES; EOSINOPHIL % 3.4 %; HYPOCHROMIA PRESENT; LYMPH ABS # 1.07 K/uL (1.2-3.4); LYMPHOCYTE % 12.1 %; META ABS # 0.08 K/uL (0-0); METAMYELOCYTE % 0.9 %; MYELOCYTE % 2.6 %; NEUTROPHILS % 70.6 %
[2016-09-16 07:35] LABS: ALB/GLOB RATIO 0.8 (0.9-2); BUN/CREATININE RATIO 11.5 (10-20); CALCIUM 8.2 mg/dl (8.5-10.1); CREATININE 0.87 mg/dl (0.60-1.20)
[2016-09-16] MEDS ORDERED: NURSING VERBAL MED ORDER ONE (07:45)
[2016-09-16] MEDS: CLOPIDOGREL BISULFATE 75 MG TAB PO SCH (07:48)
[2016-09-16] MEDS: VENLAFAXINE HCL XR 75 MG CAPXR PO SCH (07:48)
[2016-09-16] MEDS: PANTOprazole SOD 40 MG TAB PO SCH (07:49)
[2016-09-16] MEDS: ASPIRIN 81 MG ECTAB PO SCH (07:49)
[2016-09-16] MEDS: DOCUSATE SODIUM 100 MG CAP PO SCH ×3 (07:49→20:49)
[2016-09-16] MEDS: LOSARTAN POTASSIUM 25 MG TAB PO SCH (07:49)
[2016-09-16] MEDS: MULTIVITAMIN TAB PO SCH (07:49)
[2016-09-16] MEDS: PREGABALIN 100 MG CAP PO SCH ×2 (07:50→20:49)
[2016-09-16] MEDS ORDERED: SODIUM CHLORIDE 0.9% 500ML 500 ML IV ONE (08:00)
[2016-09-16] MEDS: INSULIN GLARGINE SOLOSTAR 100 UNITS/ML 3 ML PEN SC SCH (08:00)
[2016-09-16] MEDS: INSULIN ASPART 100 UNITS/ML 3 ML PEN SC SCH ×4 (08:52→20:49)
--- NOTE | 2016-09-16 19:23 | Progress Note ---
Medicine Progress Note Date & Time of Visit: Sep 16, 2016 at 19:13. Subjective Pt was seen and examined sitting in bed with no distress she is more awake today pt said that she is feeling much better she said that the RUQ abdominal pain improved denies any chest pain, palpitation and sob Objective Last 8 Hrs Date Time Temp Pulse Resp B/P Pulse Ox O2 Delivery O2 Flow Rate FiO2 09/16/16 15:14 36.7 89 20 131/74 93 Room Air Physical Exam: General- obese, no distress Head- atraumatic Eyes- PERRL, EOMI ENT- oropharynx clear Neck- supple, no JVD Lungs-No wheezing, no crackles Heart- regular rhythm; no murmur Abdomen- normal bowel sounds, +mild tenderness RUQ on palpation Extremities- no calf tenderness Neuro- alert, oriented, PERRL, EOMI; no facial palsy Skin- warm & dry Laboratory Results: Last 24 Hours Test 09/15/16 20:26 09/16/16 06:34 09/16/16 06:37 09/16/16 08:20 Bedside Glucose 194 mg/dl 97 mg/dl Procalcitonin 0.14 ng/mL White Blood Count 8.83 K/uL Red Blood Count 3.47 M/uL Hemoglobin 8.1 g/dL Hematocrit 27.0 % Mean Corpuscular Volume 77.8 fL Mean Corpuscular Hemoglobin 23.3 pg Mean Corpuscular Hemoglobin Concent 30.0 g/dl Platelet Count 185 K/uL Mean Platelet Volume 10.3 fL RDW Standard Deviation 56.4 fL RDW Coefficient of Variation 21.8 % Nucleated RBC Absolute Count (auto) 0.06 K/uL Neutrophils % (Manual) 70.6 % Lymphocytes % (Manual) 12.1 % Monocytes % (Manual) 9.5 % Eosinophils % (Manual) 3.4 % Basophils % (Manual) 0.9 % Metamyelocytes % 0.9 % Myelocytes % 2.6 % Nucleated Red Blood Cells % 0.7 % Neutrophils # (Manual) 6.23 K/uL Total Absolute Neutrophils 6.23 K/uL Lymphocytes # (Manual) 1.07 K/uL Total Absolute Lymphocytes 1.07 K/uL Monocytes # (Manual) 0.84 K/uL Eosinophils # (Manual) 0.30 K/uL Basophils # (Manual) 0.08 K/uL Metamyelocytes # 0.08 K/uL Myelocytes # 0.23 K/uL Hypochromasia PRESENT Anisocytosis PRESENT Sodium Level 145 mmol/L Potassium Level 4.0 mmol/L Chloride Level 109 mmol/L Carbon Dioxide Level 30 mmol/L Anion Gap 6.0 mmol/L Blood Urea Nitrogen 10 mg/dl Creatinine 0.87 mg/dl Est Creatinine Clear Calc Drug Dose 66.7 ml/min Estimated GFR () 83.3 Estimated GFR (Non- 71.9 BUN/Creatinine Ratio 11.5 Random Glucose 95 mg/dl Calcium Level 8.2 mg/dl Total Bilirubin 1.1 mg/dl Aspartate Amino Transf (AST/SGOT) 59 U/L Alanine Aminotransferase (ALT/SGPT) 25 U/L Alkaline Phosphatase 96 U/L Total Protein 6.4 gm/dl Albumin 2.8 gm/dl Globulin 3.6 gm/dl Albumin/Globulin Ratio 0.8 Test 09/16/16 12:01 Bedside Glucose 117 mg/dl Assessment & Plan GENERALIZED WEAKNESS Possible related to poor oral intake Needd to R/o infection Cxr on admission negative CT head negative for any intracranial abnormality WBC elevated on admission WBC trending to normal Blood cx no growth, urine cx no growth Procalcitonin negative Received Levaquin and IVF's in ER Continue gentle IVF's Continue PT/OT RUQ abdominal pain associated with nausea Elevated liver enzymes on admission Abdominal u/s showed Hepatomegaly and hepatic steatosis and No gallstones are identified. Diet advanced to regular Liver enzymes continue trending down Pain improved continue monitor pt Leukocytosis Afebrile WBC back to normal received one dose levaquin in the ER procalcitonin normal urine cx no growth blood cx no growth resolved HISTORY OF CVA Continue aspirin, Plavix, statin Stable IRON DEFICIENCY ANEMIA denies any active bleeding S/p transfusion 09/06/16 Hgb on admission was 10.2 Hgb 8.1 today possible dilutional EGD/ [place] scheduled for 10/03/16 Continue monitor cbc DM TYPE 2 Recent hba1c 6.1 (09/15/16) Well controlled Reports of hypoglycemia at home Hold metformin On Lantus 58 units daily at home pharmacy consulted for glycemic management Consider to decrease lantus upon discharge due to the hypoglycemic episodes HYPERTENSION Continue losartan Stable GERD Continue PPI DVT PROPHYLAXIS SCDs CODE STATUS FULL CODE Disposition Continue PT/OT Possible d/c tomorrow Current Inpatient Medications: Current Inpatient Medications Medications (Trade) Dose Ordered Sig/Julian Route Start Time Stop Time Status Last Admin Dose Admin Acetaminophen (Tylenol Tab) 650 mg Q4H PRN PO 09/14/16 15:15 10/14/16 15:14 Ondansetron HCl (Zofran Inj) 4 mg Q6H PRN IV 09/14/16 15:15 10/14/16 15:14 09/14/16 17:25 4 MG Glucose (Glucose 40% Gel) 15-30 GRAMS 15 GRAMS... UD PRN PO 09/14/16 15:15 10/14/16 15:14 Glucose (Glucose Chew Tab) 4-8 Tablets 4 Tabl... UD PRN PO 09/14/16 15:15 10/14/16 15:14 Dextrose (Dextrose 50% 50ML Syringe) 25-50ML OF 50% DW IV FOR... UD PRN IV 09/14/16 15:15 10/14/16 15:14 Glucagon (Glucagon Inj) 1 mg UD PRN SQ 09/14/16 15:15 10/14/16 15:14 Miscellaneous Information (Consult Glycemic Management Pharmacy) 1 ea UD N/A 09/14/16 16:09 10/14/16 16:08 Atorvastatin Calcium (Lipitor Tab) 80 mg HS PO 09/14/16 21:00 10/14/16 20:59 09/15/16 20:50 80 MG Docusate Sodium (coLACE CAP) 100 mg BID PO 09/14/16 20:00 10/14/16 20:59 09/16/16 07:49 100 MG Donepezil HCl (Aricept Tab) 10 mg HS PO 09/14/16 21:00 10/14/16 20:59 09/15/16 20:49 10 MG Levothyroxine Sodium (Synthroid Tab) 88 mcg DAILYBB PO 09/15/16 06:30 10/15/16 06:59 09/16/16 06:42 88 MCG Loratadine (Claritin Tab) 10 mg HS PO 09/14/16 21:00 10/14/16 20:59 09/15/16 20:49 10 MG Losartan Potassium (coZAAR TAB) 25 mg QAM PO 09/15/16 08:00 10/15/16 08:59 09/15/16 07:43 25 MG Mirtazapine (Remeron Tab) 30 mg HS PO 09/14/16 21:00 10/14/16 20:59 09/15/16 20:50 30 MG Multivitamins (Multivitamin Tab) 1 tab QAM PO 09/15/16 08:00 10/15/16 08:59 09/16/16 07:49 1 TAB Pregabalin (Lyrica Cap) 100 mg BID PO 09/14/16 20:00 10/14/16 20:59 09/16/16 07:50 100 MG Ropinirole HCl (Requip Tab) 0.5 mg HS PO 09/14/16 21:00 10/14/16 20:59 09/15/16 20:50 0.5 MG Tramadol HCl (Ultram Tab) 50 mg Q6 PRN PO 09/14/16 15:15 10/14/16 15:14 09/14/16 23:15 50 MG Trazodone HCl (Desyrel Tab) 50 mg HS PO 09/14/16 21:00 10/14/16 20:59 09/15/16 20:49 50 MG Pantoprazole Sodium 40 mg 40 mg QAM PO 09/15/16 08:00 10/15/16 08:59 09/16/16 07:49 40 MG Sodium Chloride (Nss 1000ml) 1,000 ml @ 80 mls/hr [id number] IV 09/14/16 15:15 10/14/16 15:14 09/16/16 17:15 80 MLS/HR Aspirin (Ecotrin Tab) 81 mg DAILY PO 09/15/16 08:00 10/15/16 08:59 09/16/16 07:49 81 MG Clopidogrel Bisulfate (plAVix TAB) 75 mg QAM PO 09/15/16 08:00 10/15/16 08:59 09/16/16 07:48 75 MG Insulin Aspart (novoLOG ASPART) SLIDING SCALE ACHS SC 09/14/16 17:00 10/14/16 16:59 09/16/16 18:43 2 UNITS Insulin Glargine (Lantus Solostar Pen) DAILY SC 09/15/16 08:00 10/15/16 08:59 Future hold Venlafaxine HCl (effeXOR EXTENDED REL CAP) 75 mg DAILY PO 09/15/16 08:00 10/15/16 07:59 09/16/16 07:48 75 MG
[2016-09-16] MEDS: LORATADINE 10 MG TAB PO SCH (20:48)
[2016-09-16] MEDS: ROPINIROLE HCL 0.25 MG TAB PO SCH (20:48)
[2016-09-16] MEDS: ATORVASTATIN 40 MG TAB PO SCH (20:48)
[2016-09-16] MEDS: DONEPEZIL HCL 10 MG TAB PO SCH (20:49)
[2016-09-16] MEDS: TRAZODONE HCL 50 MG TAB PO SCH (20:49)
[2016-09-16] MEDS: MIRTAZAPINE TAB 15 MG TAB PO SCH (20:49)
[2016-09-17] MEDS: LEVOTHYROXINE 88 MCG TAB PO SCH (05:49)
[2016-09-17] MEDS: SODIUM CHLORIDE 0.9% 1000ML 1,000 ML IV SCH (05:49)
[2016-09-17 06:55] LABS: HEMATOCRIT 27.6 % (37-47); MEAN CELL VOLUME 77.5 fL (80-100); MEAN CORPUSCULAR HGB CONC 29.7 g/dl (32-36); MEAN PLATELET VOLUME 9.8 fL (7.4-10.4); PLATELET COUNT 214 K/uL (130-400); RED BLOOD COUNT 3.56 M/uL (4.2-5.4); WHITE BLOOD COUNT 8.51 K/uL (4.8-10.8)
[2016-09-17 07:24] VITALS: BP 91/69; PULSE 95; TEMP 36.7; O2SAT 95
[2016-09-17 07:30] LABS: BUN/CREATININE RATIO 9.5 (10-20); CALCIUM 8.3 mg/dl (8.5-10.1); CREATININE 0.91 mg/dl (0.60-1.20); POTASSIUM 3.9 mmol/L (3.5-5.1)
[2016-09-17] MEDS: DOCUSATE SODIUM 100 MG CAP PO SCH ×2 (07:30→20:51)
[2016-09-17] MEDS: VENLAFAXINE HCL XR 75 MG CAPXR PO SCH (07:31)
[2016-09-17] MEDS: MULTIVITAMIN TAB PO SCH (07:31)
[2016-09-17] MEDS: CLOPIDOGREL BISULFATE 75 MG TAB PO SCH (07:31)
[2016-09-17] MEDS: PANTOprazole SOD 40 MG TAB PO SCH (07:31)
[2016-09-17] MEDS: LOSARTAN POTASSIUM 25 MG TAB PO SCH (07:31)
[2016-09-17] MEDS: ASPIRIN 81 MG ECTAB PO SCH (07:31)
[2016-09-17] MEDS: PREGABALIN 100 MG CAP PO SCH ×2 (07:33→20:53)
[2016-09-17] MEDS: INSULIN ASPART 100 UNITS/ML 3 ML PEN SC SCH ×4 (09:07→20:49)
[2016-09-17] MEDS: INSULIN GLARGINE SOLOSTAR 100 UNITS/ML 3 ML PEN SC SCH (09:08)
--- NOTE | 2016-09-17 14:57 | Pharmacy Progress Note ---
Glycemic Control: Progress Nt Date of Service Sep 17, 2016. Scope Glycemic Pharmacist consulted by Iris Scanlon PA-C on 09/14/16 for glycemic control and to write orders per [facility] inpatient glycemic control protocol. Objective Accuchecks BSG (last 24hrs): Test 09/16/16 16:58 09/16/16 20:25 09/17/16 06:41 09/17/16 07:15 Bedside Glucose 85 mg/dl (70-90) 138 mg/dl (70-90) 119 mg/dl (70-90) Random Glucose 125 mg/dl (70-99) Test 09/17/16 11:35 Bedside Glucose 156 mg/dl (70-90) Laboratory Data (last 24hrs) Test 09/17/16 06:41 Anion Gap 5.0 mmol/L BUN/Creatinine Ratio 9.5 Blood Urea Nitrogen 9 mg/dl Creatinine 0.91 mg/dl Potassium Level 3.9 mmol/L Sodium Level 144 mmol/L White Blood Count 8.51 K/uL HbA1c: Test 09/15/16 08:23 Hemoglobin A1c 6.1 % (4.5-5.6) H Recent Pertinent Medications Outpatient Anti-diabetic Regimen: * Lantus 58 units QAM * Metformin 500mg PO BID * A1c = 6.1% 09/15/16 Assessment & Plan ASSESSMENT: 09/14/16 * 61 yo type 2 diabetic, unknown control, latest A1c from a year ago was 7.2%, pt reports hypoglycemia at home. Admitted with nausea and weakness, recent diagnosis of iron deficient anemia. * Patient had her home dose of Lantus this morning at home (58 units), I will begin a reduced dose tomorrow morning, based on BSG, as this dose is covering her basal and prandial needs, and patient has had hypoglycemia at home. 09/15/16 * BSGs remain below goal range this AM despite only receiving Lantus yesterday and metformin on hold * hold Lantus today (hypoglycemia at home) and reduce dose based on a TOTAL daily need of 58 units * NovoLog parameters have not yet been tested * continue for now and titrate per response * A1c 6.1% and patient c/o hypoglycemia at home * may need reduction of Lantus upon discharge and follow up with PCP/endo * ADA & AACE recommend a goal blood sugar range 140-180 mg/dl for the majority of critically ill & non-critically ill patients. However, more stringent targets may be selected in individual cases. I will start with this range to prevent hypoglycemia. Patient's BSG 213mg/dL on admission. 09/17/16 * BSGs ranging 85 - 156 mg/dl during the past 24 hours. BSGs are well- controlled on current DM regimen. * Pt's insulin needs are diminished vs outpatient regimen. However, pt c/o hypoglycemia [employer]. Lantus dosing will need reduced upon discharge. * Will resume Metformin. Stop novolog CR to avoid overcorrection of BSG. PLAN FOR INPATIENT GLYCEMIC MANAGEMENT: * Continue Lantus qAM per scale * 0 units for BSG below 110 mg/dl * 10 units for BSG 110 - 180 mg/dl * 15 units for BSG above 180 mg/dl * Novolog ACHS * Continue correction factor of 30 mg/dl/unit * Stop carb ratio * Continue goal range of 140-180 mg/dl * Resume Metformin 500 mg BID with meals RECOMMENDATIONS FOR DISCHARGE: * Reduce Lantus dose upon discharge. Recommend Lantus 10-15 units daily in addition to close f/u with PCP/endo for further dose adjustment. Consider the addition of a Novolog correction factor to resolve hyperglycemia ACHS. Carb coverage may not be necessary particularly if Metformin is continued. * Please note that the plan above was derived based on current level of insulin resistance and hospital stress. These recommendations are appropriate for inpatient admission only. Plan of care upon discharge will need to be reassessed to avoid potential outpatient hypo/hyperglycemia. Thank you.
[2016-09-17 15:01] VITALS: BP 109/67; PULSE 87; TEMP 36.4; O2SAT 97
--- NOTE | 2016-09-17 16:47 | Progress Note ---
Medicine Progress Note Date & Time of Visit: Sep 17, 2016 at 16:43. Subjective Pt was seen and examined Sitting in chair very comfortable eating her lunch Pt said that she feels much better she said that she is back to her baseline she said that the abdominal pain is very mild denies any chest pain, palpitation,dizziness and SOB Objective Last 8 Hrs Date Time Temp Pulse Resp B/P Pulse Ox O2 Delivery O2 Flow Rate FiO2 09/17/16 16:00 Room Air 09/17/16 15:01 36.4 87 20 109/67 97 Room Air Physical Exam: General- obese, no distress Head- atraumatic Eyes- PERRL, EOMI ENT- oropharynx clear Neck- supple, no JVD Lungs-No wheezing, no crackles Heart- regular rhythm; no murmur Abdomen- normal bowel sounds, +mild tenderness RUQ on palpation Extremities- no calf tenderness Neuro- alert, oriented, PERRL, EOMI; no facial palsy Skin- warm & dry Laboratory Results: Last 24 Hours Test 09/16/16 16:58 09/16/16 20:25 09/17/16 06:41 09/17/16 07:15 Bedside Glucose 85 mg/dl 138 mg/dl 119 mg/dl White Blood Count 8.51 K/uL Red Blood Count 3.56 M/uL Hemoglobin 8.2 g/dL Hematocrit 27.6 % Mean Corpuscular Volume 77.5 fL Mean Corpuscular Hemoglobin 23.0 pg Mean Corpuscular Hemoglobin Concent 29.7 g/dl RDW Standard Deviation 56.1 fL RDW Coefficient of Variation 22.4 % Platelet Count 214 K/uL Mean Platelet Volume 9.8 fL Nucleated RBC Absolute Count (auto) 0.08 K/uL Nucleated Red Blood Cells % 1.0 % Sodium Level 144 mmol/L Potassium Level 3.9 mmol/L Chloride Level 109 mmol/L Carbon Dioxide Level 30 mmol/L Anion Gap 5.0 mmol/L Blood Urea Nitrogen 9 mg/dl Creatinine 0.91 mg/dl Est Creatinine Clear Calc Drug Dose 63.8 ml/min Estimated GFR () 78.9 Estimated GFR (Non- 68.1 BUN/Creatinine Ratio 9.5 Random Glucose 125 mg/dl Calcium Level 8.3 mg/dl Test 09/17/16 11:35 09/17/16 16:25 Bedside Glucose 156 mg/dl 116 mg/dl Assessment & Plan GENERALIZED WEAKNESS Possible related to poor oral intake Needd to R/o infection Cxr on admission negative CT head negative for any intracranial abnormality WBC elevated on admission WBC trending to normal Blood cx no growth, urine cx no growth Procalcitonin negative Received Levaquin and IVF's in ER Continue PT/OT improved RUQ abdominal pain associated with nausea Elevated liver enzymes on admission Abdominal u/s showed Hepatomegaly and hepatic steatosis and No gallstones are identified. Liver enzymes continue trending down Tolerated regular diet Pain improved Will check Liver enzymes in 1 week continue monitor pt Leukocytosis Afebrile WBC back to normal received one dose levaquin in the ER procalcitonin normal urine cx no growth blood cx no growth resolved HISTORY OF CVA Continue aspirin, Plavix, statin Stable IRON DEFICIENCY ANEMIA denies any active bleeding S/p transfusion 09/06/16 Hgb on admission was 10.2 Hgb 8.2 today possible dilutional EGD/ [place] scheduled for 10/03/16 Continue monitor cbc DM TYPE 2 Recent hba1c 6.1 (09/15/16) Well controlled Reports of hypoglycemia at home Hold metformin On Lantus 58 units daily at home pharmacy consulted for glycemic management Consider to decrease lantus upon discharge due to the hypoglycemic episodes HYPERTENSION Continue losartan Stable GERD Continue PPI DVT PROPHYLAXIS SCDs CODE STATUS FULL CODE Disposition Continue PT/OT Check liver enzymes in 1 week will d/c tomorrow Current Inpatient Medications: Current Inpatient Medications Medications (Trade) Dose Ordered Sig/Julian Route Start Time Stop Time Status Last Admin Dose Admin Acetaminophen (Tylenol Tab) 650 mg Q4H PRN PO 09/14/16 15:15 10/14/16 15:14 Ondansetron HCl (Zofran Inj) 4 mg Q6H PRN IV 09/14/16 15:15 10/14/16 15:14 09/14/16 17:25 4 MG Glucose (Glucose 40% Gel) 15-30 GRAMS 15 GRAMS... UD PRN PO 09/14/16 15:15 10/14/16 15:14 Glucose (Glucose Chew Tab) 4-8 Tablets 4 Tabl... UD PRN PO 09/14/16 15:15 10/14/16 15:14 Dextrose (Dextrose 50% 50ML Syringe) 25-50ML OF 50% DW IV FOR... UD PRN IV 09/14/16 15:15 10/14/16 15:14 Glucagon (Glucagon Inj) 1 mg UD PRN SQ 09/14/16 15:15 10/14/16 15:14 Miscellaneous Information (Consult Glycemic Management Pharmacy) 1 ea UD N/A 09/14/16 16:09 10/14/16 16:08 Atorvastatin Calcium (Lipitor Tab) 80 mg HS PO 09/14/16 21:00 10/14/16 20:59 09/16/16 20:48 80 MG Docusate Sodium (coLACE CAP) 100 mg BID PO 09/14/16 20:00 10/14/16 20:59 09/17/16 07:30 100 MG Donepezil HCl (Aricept Tab) 10 mg HS PO 09/14/16 21:00 10/14/16 20:59 09/16/16 20:49 10 MG Levothyroxine Sodium (Synthroid Tab) 88 mcg DAILYBB PO 09/15/16 06:30 10/15/16 06:59 09/17/16 05:49 88 MCG Loratadine (Claritin Tab) 10 mg HS PO 09/14/16 21:00 10/14/16 20:59 09/16/16 20:48 10 MG Losartan Potassium (coZAAR TAB) 25 mg QAM PO 09/15/16 08:00 10/15/16 08:59 09/17/16 07:31 25 MG Mirtazapine (Remeron Tab) 30 mg HS PO 09/14/16 21:00 10/14/16 20:59 09/16/16 20:49 30 MG Multivitamins (Multivitamin Tab) 1 tab QAM PO 09/15/16 08:00 10/15/16 08:59 09/17/16 07:31 1 TAB Pregabalin (Lyrica Cap) 100 mg BID PO 09/14/16 20:00 10/14/16 20:59 09/17/16 07:33 100 MG Ropinirole HCl (Requip Tab) 0.5 mg HS PO 09/14/16 21:00 10/14/16 20:59 09/16/16 20:48 0.5 MG Tramadol HCl (Ultram Tab) 50 mg Q6 PRN PO 09/14/16 15:15 10/14/16 15:14 09/14/16 23:15 50 MG Trazodone HCl (Desyrel Tab) 50 mg HS PO 09/14/16 21:00 10/14/16 20:59 09/16/16 20:49 50 MG Pantoprazole Sodium (Protonix Tab) 40 mg QAM PO 09/15/16 08:00 10/15/16 08:59 09/17/16 07:31 40 MG Aspirin (Ecotrin Tab) 81 mg DAILY PO 09/15/16 08:00 10/15/16 08:59 09/17/16 07:31 81 MG Clopidogrel Bisulfate (plAVix TAB) 75 mg QAM PO 09/15/16 08:00 10/15/16 08:59 09/17/16 07:31 75 MG Insulin Aspart (novoLOG ASPART) SLIDING SCALE ACHS SC 09/14/16 17:00 10/14/16 16:59 09/17/16 12:52 7 UNITS Insulin Glargine (Lantus Solostar Pen) DAILY SC 09/15/16 08:00 10/15/16 08:59 Future hold 09/17/16 09:08 10 UNIT Venlafaxine HCl (effeXOR EXTENDED REL CAP) 75 mg DAILY PO 09/15/16 08:00 10/15/16 07:59 09/17/16 07:31 75 MG Metformin HCl (Glucophage Tab) 500 mg BIDM PO 09/17/16 17:00 10/17/16 16:59
[2016-09-17] MEDS: METFORMIN HCL 500 MG TAB PO SCH (17:30)
[2016-09-17] MEDS: ATORVASTATIN 40 MG TAB PO SCH (20:50)
[2016-09-17] MEDS: ROPINIROLE HCL 0.25 MG TAB PO SCH (20:50)
[2016-09-17] MEDS: DONEPEZIL HCL 10 MG TAB PO SCH (20:51)
[2016-09-17] MEDS: LORATADINE 10 MG TAB PO SCH (20:51)
[2016-09-17] MEDS: TRAZODONE HCL 50 MG TAB PO SCH (20:52)
[2016-09-17] MEDS: MIRTAZAPINE TAB 15 MG TAB PO SCH (20:52)
[2016-09-17 23:54] VITALS: BP 127/66; PULSE 87; TEMP 36.3; O2SAT 96
[2016-09-18] MEDS: LEVOTHYROXINE 88 MCG TAB PO SCH (05:36)
[2016-09-18] MEDS: INSULIN ASPART 100 UNITS/ML 3 ML PEN SC SCH (06:30)
[2016-09-18 07:23] VITALS: BP 141/84; PULSE 86; TEMP 36.4; O2SAT 94
[2016-09-18 07:44] LABS: HEMATOCRIT 26.9 % (37-47); MEAN CORPUSCULAR HEMOGLOBIN 23.5 pg (25-34); MEAN CORPUSCULAR HGB CONC 30.1 g/dl (32-36); MEAN PLATELET VOLUME 10.1 fL (7.4-10.4); PLATELET COUNT 258 K/uL (130-400); RED BLOOD COUNT 3.45 M/uL (4.2-5.4); WHITE BLOOD COUNT 9.26 K/uL (4.8-10.8)
[2016-09-18] MEDS: ASPIRIN 81 MG ECTAB PO SCH (07:45)
[2016-09-18] MEDS: LOSARTAN POTASSIUM 25 MG TAB PO SCH (07:45)
[2016-09-18] MEDS: DOCUSATE SODIUM 100 MG CAP PO SCH (07:45)
[2016-09-18] MEDS: CLOPIDOGREL BISULFATE 75 MG TAB PO SCH (07:45)
[2016-09-18] MEDS: METFORMIN HCL 500 MG TAB PO SCH (07:45)
[2016-09-18] MEDS: PREGABALIN 100 MG CAP PO SCH (07:46)
[2016-09-18] MEDS: VENLAFAXINE HCL XR 75 MG CAPXR PO SCH (07:46)
[2016-09-18] MEDS: MULTIVITAMIN TAB PO SCH (07:46)
[2016-09-18] MEDS: PANTOprazole SOD 40 MG TAB PO SCH (07:46)
[2016-09-18 08:00] VITALS: O2SAT 94
[2016-09-18 08:34] LABS: FERRITIN 266.7 ng/ml (8.0-388.0)
[2016-09-18] MEDS: INSULIN GLARGINE SOLOSTAR 100 UNITS/ML 3 ML PEN SC SCH (09:12)
[2016-09-18 09:34] VITALS: BP 141/84; PULSE 86; TEMP 36.4; O2SAT 94
--- NOTE | 2016-09-18 10:25 | Progress Note ---
Medicine Progress Note Date & Time of Visit: Sep 18, 2016 at 09:59. Subjective Pt was seen an examined Sitting in chair very comfortable Pt said that she feels fine she said that her abdominal pain is almost gone she did very well today with PT denies any chest pain, palpitation, Dizziness an SOB Objective Last 8 Hrs Date Time Temp Pulse Resp B/P Pulse Ox O2 Delivery O2 Flow Rate FiO2 09/18/16 09:34 36.4 86 16 94 Room Air 09/18/16 08:00 94 Room Air 09/18/16 07:23 36.4 86 16 141/84 94 Room Air Physical Exam: General- obese, no distress, very pleasant Head- atraumatic Eyes- PERRL, EOMI ENT- oropharynx clear Neck- supple, no JVD Lungs-No wheezing, no crackles Heart- regular rhythm; no murmur Abdomen- normal bowel sounds, +mild tenderness RUQ on palpation Extremities- no calf tenderness, no edema Neuro- alert, oriented, PERRL, EOMI; no facial palsy Skin- warm & dry Laboratory Results: Last 24 Hours Test 09/17/16 11:35 09/17/16 16:25 09/17/16 19:43 09/18/16 06:59 Bedside Glucose 156 mg/dl 116 mg/dl 131 mg/dl White Blood Count 9.26 K/uL Red Blood Count 3.45 M/uL Hemoglobin 8.1 g/dL Hematocrit 26.9 % Mean Corpuscular Volume 78.0 fL Mean Corpuscular Hemoglobin 23.5 pg Mean Corpuscular Hemoglobin Concent 30.1 g/dl RDW Standard Deviation 57.1 fL RDW Coefficient of Variation 23.7 % Platelet Count 258 K/uL Mean Platelet Volume 10.1 fL Nucleated RBC Absolute Count (auto) 0.15 K/uL Nucleated Red Blood Cells % 1.6 % Iron Level 67 mcg/dl Total Iron Binding Capacity 309 mcg/dl Transferrin 237 mg/dl Transferrin % Saturation 20 % Ferritin 266.7 ng/ml Test 09/18/16 07:30 Bedside Glucose 125 mg/dl Assessment & Plan GENERALIZED WEAKNESS Possible related to poor oral intake Needd to R/o infection Cxr on admission negative CT head negative for any intracranial abnormality WBC elevated on admission WBC trending to normal Blood cx no growth, urine cx no growth Procalcitonin negative Received Levaquin and IVF's in ER did well with PT today Continue home PT Stable RUQ abdominal pain associated with nausea Elevated liver enzymes on admission Abdominal u/s showed Hepatomegaly and hepatic steatosis and No gallstones are identified. Liver enzymes continue trending down Tolerated regular diet Pain improved Will check Liver enzymes in 1 week Improved Leukocytosis Afebrile WBC back to normal received one dose levaquin in the ER procalcitonin normal urine cx no growth blood cx no growth resolved HISTORY OF CVA Continue aspirin, Plavix, statin Stable IRON DEFICIENCY ANEMIA denies any active bleeding S/p transfusion 09/06/16 Hgb on admission was 10.2 Hgb 8.1 today possible dilutional EGD/ [place] scheduled for 10/03/16 Continue monitor cbc DM TYPE 2 Recent hba1c 6.1 (09/15/16) Well controlled Reports of hypoglycemia at home Hold metformin On Lantus 58 units daily at home pharmacy consulted for glycemic management Consider to decrease lantus upon discharge due to the hypoglycemic episodes Discussed with pharmacy recommended to discharge her on lantus 15 units, since she has been getting lantus 10 units while in the hospital Monitor BS and titrate lantus if needed by the PCP HYPERTENSION Continue losartan Stable GERD Continue PPI DVT PROPHYLAXIS SCDs CODE STATUS FULL CODE Disposition Continue home PT/OT Check liver enzymes in 1 week Discharge home today Follow up appointment with your primary care provider Dr. Macdonald on 09/22 at 10: 30 am at the [facility] Current Inpatient Medications: Current Inpatient Medications Medications (Trade) Dose Ordered Sig/Julian Route Start Time Stop Time Status Last Admin Dose Admin Acetaminophen (Tylenol Tab) 650 mg Q4H PRN PO 09/14/16 15:15 10/14/16 15:14 Ondansetron HCl (Zofran Inj) 4 mg Q6H PRN IV 09/14/16 15:15 10/14/16 15:14 09/14/16 17:25 4 MG Glucose (Glucose 40% Gel) 15-30 GRAMS 15 GRAMS... UD PRN PO 09/14/16 15:15 10/14/16 15:14 Glucose (Glucose Chew Tab) 4-8 Tablets 4 Tabl... UD PRN PO 09/14/16 15:15 10/14/16 15:14 Dextrose (Dextrose 50% 50ML Syringe) 25-50ML OF 50% DW IV FOR... UD PRN IV 09/14/16 15:15 10/14/16 15:14 Glucagon (Glucagon Inj) 1 mg UD PRN SQ 09/14/16 15:15 10/14/16 15:14 Miscellaneous Information (Consult Glycemic Management Pharmacy) 1 ea UD N/A 09/14/16 16:09 10/14/16 16:08 Atorvastatin Calcium (Lipitor Tab) 80 mg HS PO 09/14/16 21:00 10/14/16 20:59 09/17/16 20:50 80 MG Docusate Sodium (coLACE CAP) 100 mg BID PO 09/14/16 20:00 10/14/16 20:59 09/18/16 07:45 100 MG Donepezil HCl (Aricept Tab) 10 mg HS PO 09/14/16 21:00 10/14/16 20:59 09/17/16 20:51 10 MG Levothyroxine Sodium (Synthroid Tab) 88 mcg DAILYBB PO 09/15/16 06:30 10/15/16 06:59 09/18/16 05:36 88 MCG Loratadine (Claritin Tab) 10 mg HS PO 09/14/16 21:00 10/14/16 20:59 09/17/16 20:51 10 MG Losartan Potassium (coZAAR TAB) 25 mg QAM PO 09/15/16 08:00 10/15/16 08:59 09/18/16 07:45 25 MG Mirtazapine (Remeron Tab) 30 mg HS PO 09/14/16 21:00 10/14/16 20:59 09/17/16 20:52 30 MG Multivitamins (Multivitamin Tab) 1 tab QAM PO 09/15/16 08:00 10/15/16 08:59 09/18/16 07:46 1 TAB Pregabalin (Lyrica Cap) 100 mg BID PO 09/14/16 20:00 10/14/16 20:59 09/18/16 07:46 100 MG Ropinirole HCl (Requip Tab) 0.5 mg HS PO 09/14/16 21:00 10/14/16 20:59 09/17/16 20:50 0.5 MG Tramadol HCl (Ultram Tab) 50 mg Q6 PRN PO 09/14/16 15:15 10/14/16 15:14 09/14/16 23:15 50 MG Trazodone HCl (Desyrel Tab) 50 mg HS PO 09/14/16 21:00 10/14/16 20:59 09/17/16 20:52 50 MG Pantoprazole Sodium (Protonix Tab) 40 mg QAM PO 09/15/16 08:00 10/15/16 08:59 09/18/16 07:46 40 MG Aspirin (Ecotrin Tab) 81 mg DAILY PO 09/15/16 08:00 10/15/16 08:59 09/18/16 07:45 81 MG Clopidogrel Bisulfate (plAVix TAB) 75 mg QAM PO 09/15/16 08:00 10/15/16 08:59 09/18/16 07:45 75 MG Insulin Aspart (novoLOG ASPART) SLIDING SCALE ACHS SC 09/14/16 17:00 10/14/16 16:59 09/17/16 12:52 7 UNITS Insulin Glargine (Lantus Solostar Pen) DAILY SC 09/15/16 08:00 10/15/16 08:59 Future hold 09/18/16 09:12 10 UNIT Venlafaxine HCl (effeXOR EXTENDED REL CAP) 75 mg DAILY PO 09/15/16 08:00 10/15/16 07:59 09/18/16 07:46 75 MG Metformin HCl (Glucophage Tab) 500 mg BIDM PO 09/17/16 17:00 10/17/16 16:59 09/18/16 07:45 500 MG
--- NOTE | 2016-09-18 10:36 | Discharge Instructions ---
Discharge Instructions Date of Service Sep 18, 2016. Admission Reason for Admission: Generalized Weakness/ RUQ abdominal pain Discharge Discharge Diagnosis / Problem: Elevated liver enzymes, DM Type 2, Iron deficiency anemia, HTN, RUQ pain Discharge Goals Goal(s): Decrease discomfort, Improve function, Improve disease control Activity Recommendations Activity Limitations: resume your previous activity (as tolerated) . Instructions / Follow-Up Instructions / Follow-Up Follow up appointment with your primary care provider Dr. Macdonald on 09/22 at 10: 30 am at the [facility] Continue home PT/OT fall precaution Check liver enzymes and CBC in 1 week Lantus changed to 15 units, can titrate up if needed by your physician Please check blood sugar three times daily and keep a blood sugar log Please bring your blood sugar log in your next follow up appointment with Dr. Ferris Please follow a healthy diabetes diet and limited concentrate sugar intake Current Hospital Diet Patient's current hospital diet: Diabetes Type 2 Diet Discharge Diet Recommended Diet: Diabetes Type 2 Diet Pending Studies Studies pending at discharge: no Laboratory Results Hemoglobin A1c Test 09/15/16 08:23 Range/Units Estimated Average Glucose 128 mg/dl Hemoglobin A1c 6.1 H 4.5-5.6 % Medical Emergencies . Who to Call and When: Medical Emergencies: If at any time you feel your situation is an emergency, please call 911 immediately. . Non-Emergent Contact Non-Emergency issues call your: Primary Care Provider Call Non-Emergent contact if: you have any medication questions . . "Provider Documentation" section prepared by Kacey Harden. VTE Core Measure Inpt VTE Proph given/why not?: SCD's
[2016-09-18] MEDS ORDERED: FERR325T5 PO (10:43)
[2016-09-18] MEDS ORDERED: INSDGI SC (10:43)
--- NOTE | 2016-09-22 12:15 | Discharge Summary ---
Discharge Summary Date of Service Sep 22, 2016. Discharge Summary Admission Date: Sep 14, 2016 at 15:06 Discharge Date: Sep 18, 2016 Discharge Disposition: Home Principal Diagnosis: Generalized Weakness/ RUQ abdominal pain Secondary Diagnoses/Problems: Elevated liver enzymes DM Type 2 Iron deficiency anemia, HTN RUQ pain Procedures: ULTRASOUND ABDOMEN COMPLETE CLINICAL HISTORY: Nausea. Generalized weakness.. COMPARISON STUDY: No priors. TECHNIQUE: Real-time, grayscale, and color flow sonography of the abdomen was performed. Images are reviewed in the transverse and longitudinal planes. FINDINGS: Liver: The liver is mildly enlarged and demonstrates diffusely increased echotexture consistent with hepatic steatosis. There is no intrahepatic biliary ductal dilatation. The main portal vein is patent. Gallbladder: The gallbladder is normal in appearance. No gallstones are identified. There is no gallbladder wall thickening or pericholecystic fluid. A sonographic San's sign is reportedly absent. The common bile duct measures up to 0.4 cm in diameter. Pancreas: The pancreas is suboptimally assessed. Visualized portions of the pancreatic head and body are grossly normal in appearance. Spleen: The spleen is mildly enlarged, measuring 13.3 cm in length. The splenic vein is patent. Kidneys: The kidneys demonstrate cortical atrophy. There is no hydronephrosis. The right kidney measures 10.3 cm in length and the left kidney measures 11.3 cm in length. No shadowing calculi are identified. Abdominal vasculature: The imaged IVC is normal in appearance. The abdominal aorta was not well visualized. Ascites: None. IMPRESSION: 1. Hepatomegaly and hepatic steatosis. 2. No gallstones are identified. 3. The kidneys demonstrate cortical atrophy and are without hydronephrosis. Electronically signed by: Christopher Zuniga M.D. 09/14/2016 6:34 PM Dictated Date/Time: 09/14/2016 6:[address] SCAN OF THE BRAIN WITHOUT IV CONTRAST CLINICAL HISTORY: Nausea and weakness. COMPARISON STUDY: CT brain dated 01/01/2015. TECHNIQUE: Unenhanced axial CT scan of the brain is performed from the vertex to the skull base. The examination is modestly degraded by motion artifact. CT DOSE: 537.48 mGy.cm FINDINGS: Brain parenchyma: Left MCA territory encephalomalacia is new from 01/01/2015 and consistent with previous left MCA territory infarct. There is mild associated ex vacuo dilatation of the left lateral ventricle. There are age-related involutional changes noting mild subcortical and periventricular microangiopathic change. There is no hemorrhage, mass effect, or evidence of acute territorial ischemia by CT criteria. Gavin-white matter is preserved. No extra-axial fluid collection is seen. Ventricles, sulci, cisterns: Prominent secondary to involutional change. Intracranial vasculature: There is atherosclerotic calcification of the cavernous carotid and vertebral arteries. Calvarium: Unremarkable. Sinuses and mastoids: The visualized paranasal sinuses are clear. The mastoid air cells are well pneumatized. Orbits: The bony orbits are grossly intact. IMPRESSION: 1. There is no hemorrhage, mass effect, or evidence of acute territorial ischemia by CT criteria. 2. Left MCA territory encephalomalacia is new from the 01/01/2015 examination and consistent with interval infarct. This is not acute. Electronically signed by: Christopher Zuniga M.D. 09/14/2016 10:52 PM Dictated Date/Time: 09/14/2016 10:49 PM Consultations: Pharmacy for Glycemic control Medication Reconciliation New Medications: Ferrous Sulfate (Ferrous Sulfate) 325 Mg Tab 325 MG PO DAILY for 30 Days, TAB Changed Medications: Insulin Glargine (Lantus) 100 Unit/Ml Inj 15 UNITS SC QAM for 30 Days, VIAL (Changed from: 58 UNITS) Continued Medications: Aspirin (Aspirin Ec) 81 Mg Tab 81 MG PO DAILY Atorvastatin (Lipitor) 40 Mg Tab 80 MG PO HS, TAB Clopidogrel (Plavix) 75 Mg Tab 75 MG PO QAM, TAB Docusate Sodium (Docusate Sodium) 100 Mg Cap 1 CAP PO BID for 15 Days, #30 CAP Donepezil Hydrochloride (Aricept) 10 Mg Tab 10 MG PO HS, TAB Esomeprazole Magnesium (Nexium) 40 Mg Capcr 40 MG PO QAM, CAP Levothyroxine Sodium (Levothyroxine Sodium) 88 Mcg Tab 88 MCG PO QAM Loratadine (Claritin) 10 Mg Tab 10 MG PO HS, TAB Losartan Potassium (Cozaar) 25 Mg Tab 25 MG PO QAM, TAB Metformin Hcl (Glucophage) 500 Mg Tab 500 MG PO BID, TAB Mirtazapine (Remeron) 15 Mg Tab 30 MG PO HS, TAB Multivitamin (Multivitamin) Tab 1 TAB PO QAM, TAB Pregabalin (Lyrica) 100 Mg Cap 100 MG PO BID, CAP Ropinirole Hydrochloride (Requip) 0.5 Mg Tab 0.5 MG PO HS, TAB Tramadol (Ultram) 50 Mg Tab 50 MG PO Q6 PRN for Pain, TAB Trazodone Hcl (Trazodone) 50 Mg Tab 50 MG PO HS, TAB Venlafaxine Hcl (Effexor) 75 Mg Tab 75 MG PO DAILY, TAB Admission Information HPI (per Admitting provider): This is a 61 y/o female with PMH of CVA in 2014 on ASA and Plavix, DM type 2, gastroparesis, GERD, fatty liver, hypothyroidism, depression, and other problems listed below who presents to the ED with generalized weakness and nausea. Pt's daughter in law reports recent severe constipation over past few weeks and bright red blood per rectum. She was found to have iron deficiency anemia with Hg of 8.5 on 09/05/16. She was transfused on 09/06/16. She was seen by Gaye Live of GI two days ago at which time Hg improved to 10.5. She was noted to be Hemoccult positive. She is scheduled for abdominal US, EGD, and colonoscopy. As per daughter in law patient was doing well aside from ongoing fatigue yesterday when caregiver assessed her. Then over past 24 hours she developed weakness and nausea. At baseline she has RLE> LLE weakness but today has increased weakness in bilateral legs. Usually she can ambulate unassisted or with cane but today she was unable to get out of her chair. Denies vomiting or abdominal pain. She ate normally yesterday and had cereal this morning. Constipation has improved on stool softener- now having 1 BM every 3 days. She did have watery stool yesterday and today. No further bright red blood per rectum in past few days. Pt has chronic speech difficulty secondary to prior CVA which is unchanged. She admits to feeling cold. She was afebrile when checked by caregiver and in ER. Pt denies weight change, dizziness, blurred vision, numbness, URI symptoms, cough, CP, SOB, dysuria, frequency, urgency, wounds or rash. Physical Exam (per Admitting): General Appearance: WD/WN, no apparent distress, + pertinent finding ( mildly ill appearing 61 year old female, not in distress, daughter in law at bedside) Head: normocephalic, atraumatic Eyes: normal inspection, PERRL, EOMI ENT: hearing grossly normal, pharynx normal Neck: supple, trachea midline Respiratory/Chest: lungs clear, normal breath sounds, no respiratory distress Cardiovascular: regular rate, rhythm, no murmur, normal peripheral pulses Abdomen/GI: normal bowel sounds, soft, + pertinent finding (tender in RUQ and RLQ. san sign negative. ) Extremities/Musculoskelatal: no calf tenderness, no pedal edema Neurologic/Psych: alert, normal mood/affect, oriented x 3, + pertinent finding (expressive aphasia at baseline per daughter in law; no facial droop; no focal motor deficit of upper extremities. R >L LE weakness, able to lift bilateral legs against gravity) Skin: normal color, warm/dry Hospital Course GENERALIZED WEAKNESS Possible related to poor oral intake Needd to R/o infection Cxr on admission negative CT head negative for any intracranial abnormality WBC elevated on admission WBC trending to normal Blood cx no growth, urine cx no growth Procalcitonin negative Received Levaquin and IVF's in ER did well with PT today Continue home PT Stable RUQ abdominal pain associated with nausea Elevated liver enzymes on admission Abdominal u/s showed Hepatomegaly and hepatic steatosis and No gallstones are identified. Liver enzymes continue trending down Tolerated regular diet Pain improved Will check Liver enzymes in 1 week Improved Leukocytosis Afebrile WBC back to normal received one dose levaquin in the ER procalcitonin normal urine cx no growth blood cx no growth resolved HISTORY OF CVA Continue aspirin, Plavix, statin Stable IRON DEFICIENCY ANEMIA denies any active bleeding S/p transfusion 09/06/16 Hgb on admission was 10.2 Hgb 8.1 today possible dilutional EGD/ [place] scheduled for 10/03/16 Continue monitor cbc DM TYPE 2 Recent hba1c 6.1 (09/15/16) Well controlled Reports of hypoglycemia at home Hold metformin On Lantus 58 units daily at home pharmacy consulted for glycemic management Consider to decrease lantus upon discharge due to the hypoglycemic episodes Discussed with pharmacy recommended to discharge her on lantus 15 units, since she has been getting lantus 10 units while in the hospital Monitor BS and titrate lantus if needed by the PCP HYPERTENSION Continue losartan Stable GERD Continue PPI DVT PROPHYLAXIS SCDs CODE STATUS FULL CODE Disposition Continue home PT/OT Check liver enzymes in 1 week Discharge home today Follow up appointment with your primary care provider Dr. Macdonald on 09/22 at 10: 30 am at the [facility] Total time spent on discharge = 35 minutes This includes examination of the patient, discharge planning, medication reconciliation, and communication with other providers. Discharge Instructions Discharge Instructions Date of Service Sep 18, 2016. Admission Reason for Admission: Generalized Weakness/ RUQ abdominal pain Discharge Discharge Diagnosis / Problem: Elevated liver enzymes, DM Type 2, Iron deficiency anemia, HTN, RUQ pain Discharge Goals Goal(s): Decrease discomfort, Improve function, Improve disease control Activity Recommendations Activity Limitations: resume your previous activity (as tolerated) . Instructions / Follow-Up Instructions / Follow-Up Follow up appointment with your primary care provider Dr. Macdonald on 09/22 at 10: 30 am at the [facility] Continue home PT/OT fall precaution Check liver enzymes and CBC in 1 week Lantus changed to 15 units, can titrate up if needed by your physician Please check blood sugar three times daily and keep a blood sugar log Please bring your blood sugar log in your next follow up appointment with Dr. Ferris Please follow a healthy diabetes diet and limited concentrate sugar intake Current Hospital Diet Patient's current hospital diet: Diabetes Type 2 Diet Discharge Diet Recommended Diet: Diabetes Type 2 Diet Pending Studies Studies pending at discharge: no Laboratory Results Hemoglobin A1c Test 09/15/16 08:23 Range/Units Estimated Average Glucose 128 mg/dl Hemoglobin A1c 6.1 H 4.5-5.6 % Medical Emergencies . Who to Call and When: Medical Emergencies: If at any time you feel your situation is an emergency, please call 911 immediately. . Non-Emergent Contact Non-Emergency issues call your: Primary Care Provider Call Non-Emergent contact if: you have any medication questions . . "Provider Documentation" section prepared by Kacey Harden. VTE Core Measure Inpt VTE Proph given/why not?: SCD's Additional Copies To Oseas Macdonald III, M.D.
--- NOTE | 2016-09-24 18:33 | EDITING REQUIRED CODING QUERY ---
SEPSIS Dear Dr. Harden, To promote full compliance with coding requirements relating to patient care, physician participation is requested in all cases of packager uncertainty. Please assist us with the question(s) below: In responding to this query, please exercise your independent professional judgement. The fact that a question is asked does not imply that any particular answer is desired or expected. We appreciate your clarification on this issue. Medical documentation - H and P GENERALIZED WEAKNESS Initially met SIRS criteria with leukocytosis; borderline HR in 90s; POC lactic acid 2.1 -> repeat lactate pending; Afebrile; HD stable R/o infection- CXR clear; UA mildly abnormal but no urinary sx; check urine culture; blood cultures pending Received Levaquin and IVF's in ER Continue gentle IVF's Check CT head to r/o intracranial abnormality given hx of CVA Please clarify SIRS noted on H and P. Not noted on discharge summary. Please desirae all that apply by marking (X) in the parentheses. ( )Bacteremia (Nonspecific laboratory finding of bacteria in the blood) Specify Organism () Present on Admission () Not present on admission () Unable to clinically determine ( ) Septicemia (Systemic disease associated with the presence of pathogenic microorganisms in the blood): Specify Organism () Present on Admission () Not present on admission () Unable to clinically determine ( ) Sepsis Specify Organism Specify Associated Condition/Diagnosis () Present on Admission () Not present on admission () Unable to clinically determine ( ) Severe Sepsis (Sepsis associated with acute organ dysfunction) Specify Organism Specify Associated Condition/Diagnosis () Present on Admission () Not present on admission () Unable to clinically determine ( ) Septic Shock (Severe sepsis with acute circulatory failure, unexplained by other causes) () Present on Admission () Not present on admission () Unable to clinically determine ( ) Other, patient has: ( x) SIRS (Noninfective origin (without organ dysfunction) ( ) Sepsis was ruled out ( ) SIRS Ruled Out (Noninfective origin (without organ dysfunction) Thank you for your time. Ginny De Luna, CLASSIFIED AD CLERK
[2017-03-15] MEDS ORDERED: INSDGI SQ (14:18)
[2017-03-15] MEDS ORDERED: INSDGI SC (14:36)
[2017-03-15] MEDS ORDERED: ALBU18002 INH (14:36)
[2017-03-15] MEDS ORDERED: DONE10TA12 PO (14:36)
[2017-03-15] MEDS ORDERED: FERR1TAB13 PO (14:36)
[2017-03-15] MEDS ORDERED: CZR25 PO (14:36)
[2017-03-15] MEDS ORDERED: ASPI81TA28 PO (14:36)
[2017-03-15] MEDS ORDERED: CHOL1000 PO (14:36)
[2017-03-15] MEDS ORDERED: ATOR-26 PO (14:36)
[2017-03-15] MEDS ORDERED: ROPI0.5T15 PO (14:36)
[2017-03-15] MEDS ORDERED: CLOP1TAB15 PO (14:36)
[2017-03-15] MEDS ORDERED: MIRT30TA2 PO (14:36)
[2017-03-15] MEDS ORDERED: LEVO75TA5 PO (14:36)
[2017-03-15] MEDS ORDERED: DICY10CA12 PO (14:36)
[2017-03-15] MEDS ORDERED: VENL-273 PO (14:36)
[2017-03-15] MEDS ORDERED: [UNRECOGNIZED DRUG - CODE] PO (14:36)
[2017-03-15] MEDS ORDERED: NXM/40 PO (14:36)
[2017-03-15] MEDS ORDERED: MULT-506 PO (14:36)
[2017-03-15] MEDS ORDERED: CLR10 PO (14:36)
[2017-03-15] MEDS ORDERED: METF-384 PO (14:36)
[2017-03-15] MEDS ORDERED: PREG100C PO (14:36)
[2017-03-15] MEDS ORDERED: CYAN100020 PO (14:36)
[2017-03-15] MEDS ORDERED: BISA-16 PO (14:36)
[2017-03-15] MEDS ORDERED: TRAZ50TA35 PO (14:45)
== END 2016-09-18 11:15 | disposition home health service (06) | DRG 948 ==
LOC: ENRESERVDT → ENRESERVTM → EDBD 11:44 → C.EDB 11:46 → C.MS4W 15:06
PROVIDERS: ADMIT Internal Medicine; ATTEND Internal Medicine
DX: R53.1 Weakness (principal); R65.10 Systemic inflammatory response syndrome (SIRS) of non-infectious origin without acute organ dysfunction; K62.5 Hemorrhage of anus and rectum; I69.351 Hemiplegia and hemiparesis following cerebral infarction affecting right dominant side; M34.1 CR(E)ST syndrome; E03.9 Hypothyroidism, unspecified; E78.5 Hyperlipidemia, unspecified; D50.9 Iron deficiency anemia, unspecified; I10 Essential (primary) hypertension; K21.0 Gastro-esophageal reflux disease with esophagitis; E11.649 Type 2 diabetes mellitus with hypoglycemia without coma; K76.0 Fatty (change of) liver, not elsewhere classified; R94.5 Abnormal results of liver function studies; D72.829 Elevated white blood cell count, unspecified; I73.9 Peripheral vascular disease, unspecified; R63.8 Other symptoms and signs concerning food and fluid intake; M79.1 Myalgia; I65.29 Occlusion and stenosis of unspecified carotid artery; F41.9 Anxiety disorder, unspecified; E11.43 Type 2 diabetes mellitus with diabetic autonomic (poly)neuropathy; K31.84 Gastroparesis; R11.0 Nausea; R10.11 Right upper quadrant pain; Z79.4 Long term (current) use of insulin; Z87.891 Personal history of nicotine dependence; Z98.1 Arthrodesis status; Z79.82 Long term (current) use of aspirin; Z79.02 Long term (current) use of antithrombotics/antiplatelets; Z79.899 Other long term (current) drug therapy; Z79.891 Long term (current) use of opiate analgesic; Z79.84 Long term (current) use of oral hypoglycemic drugs

== ENCOUNTER 2017-04-13 05:05 | Day surgery (SDC) | payer OTHER ==
[2017-03-15 13:44] VITALS: BMI 34.0
--- NOTE | 2017-03-15 14:44 | PAT Medication Instructions ---
Service Date Mar 15, 2017. Current Home Medication List Albuterol Sulfate (Proair Respiclick), 2 PUFFS INH DIRECTED PRN for Wheezing Aspirin (Aspirin Ec), 81 MG PO QAM Atorvastatin (Lipitor), 80 MG PO QPM Bisacodyl (Dulcolax), 2 TAB PO QPM Cholecalciferol (Vitamin D3), 1 TAB PO QAM Clopidogrel (Plavix), 75 MG PO QAM Cyanocobalamin (Vitamin B12), 1 TAB PO QAM Dicyclomine Hcl (Dicyclomine Hcl), 1 CAP PO BID PRN for abdominal cramping Docusate Calcium (Docusate Calcium), 1 TAB PO QPM Donepezil Hydrochloride (Aricept), 1 TAB PO HS Esomeprazole Magnesium (Nexium), 40 MG PO QAM Ferrous Sulfate (Kp Ferrous Sulfate), 1 TAB PO QAM Insulin Glargine (Lantus), 45 UNITS SC QAM Levothyroxine Sodium (Levothyroxine Sodium), 1 TAB PO QAM Loratadine (Claritin), 10 MG PO QPM Losartan Potassium (Losartan Potassium), 1 TAB PO QAM Metformin Hcl (Glucophage), 1,000 MG PO BID Mirtazapine Soltab (Remeron Soltab), 30 MG PO QPM Multivitamin (Multivitamin), 1 TAB PO QAM Pregabalin (Lyrica), 1 CAP PO BID Ropinirole (Requip), 0.5 MG PO QPM Venlafaxine Hcl (Venlafaxine Hcl Er), 1 TAB PO QAM Medication Instructions For Your Scheduled Surgery - Check with surgeon and Dr. Macdonald for instructions: Aspirin (Aspirin Ec), 81 MG PO QAM Clopidogrel (Plavix), 75 MG PO QAM - Hold the following medications 48 hours prior to surgery: Metformin Hcl (Glucophage), 1,000 MG PO BID - Hold the following medications the morning of surgery: Multivitamin (Multivitamin), 1 TAB PO QAM Losartan Potassium (Losartan Potassium), 1 TAB PO QAM Ferrous Sulfate (Kp Ferrous Sulfate), 1 TAB PO QAM Dicyclomine Hcl (Dicyclomine Hcl), 1 CAP PO BID PRN for abdominal cramping Cyanocobalamin (Vitamin B12), 1 TAB PO QAM Cholecalciferol (Vitamin D3), 1 TAB PO QAM - Take the following medications the morning of surgery with a sip of water: Pregabalin (Lyrica), 1 CAP PO BID Venlafaxine Hcl (Venlafaxine Hcl Er), 1 TAB PO QAM Levothyroxine Sodium (Levothyroxine Sodium), 1 TAB PO QAM Esomeprazole Magnesium (Nexium), 40 MG PO QAM Albuterol Sulfate (Proair Respiclick), 2 PUFFS INH DIRECTED PRN for Wheezing (if needed) - Hold the following medications as scheduled the night before surgery: Ropinirole (Requip), 0.5 MG PO QPM - Take the following medications as scheduled the night before surgery: Pregabalin (Lyrica), 1 CAP PO BID Mirtazapine Soltab (Remeron Soltab), 30 MG PO QPM Loratadine (Claritin), 10 MG PO QPM Donepezil Hydrochloride (Aricept), 1 TAB PO HS Docusate Calcium (Docusate Calcium), 1 TAB PO QPM Dicyclomine Hcl (Dicyclomine Hcl), 1 CAP PO BID PRN for abdominal cramping (if needed) Bisacodyl (Dulcolax), 2 TAB PO QPM Atorvastatin (Lipitor), 80 MG PO QPM Albuterol Sulfate (Proair Respiclick), 2 PUFFS INH DIRECTED PRN for Wheezing (if needed) - For Insulin Dependent Diabetic patients: Test blood sugar A.M. of surgery. - If blood sugar greater than 150, take half of your regular dose of: Insulin Glargine (Lantus), take 22 units - If blood sugar less than 150, do not take any: Insulin Glargine (Lantus ) If you have any questions please call us at [phone] or [phone] or [phone]
[2017-03-15 15:15] LABS: BASO % 0.4 %; BASO ABS # 0.04 K/uL (0-0.2); COMPLETE YES; EOS % 2.6 %; HEMATOCRIT 36.2 % (37-47); IG% 0.3 %; LYMPH % 33.4 %; LYMPH ABS # 3.06 K/uL (1.2-3.4); MEAN CELL VOLUME 91.9 fL (80-100); MEAN CORPUSCULAR HEMOGLOBIN 28.4 pg (25-34); MEAN CORPUSCULAR HGB CONC 30.9 g/dl (32-36); MEAN PLATELET VOLUME 10.1 fL (7.4-10.4); NEUT % 52.3 %; PLATELET COUNT 360 K/uL (130-400); RED BLOOD COUNT 3.94 M/uL (4.2-5.4); WHITE BLOOD COUNT 9.15 K/uL (4.8-10.8)
[2017-03-15 15:24] LABS: PROTHROMBIN TIME (PATIENT) 10.6 SECONDS (9.0-12.0)
[2017-03-15 15:35] LABS: BUN/CREATININE RATIO 13.5 (10-20); CALCIUM 8.3 mg/dl (8.5-10.1); CREATININE 0.91 mg/dl (0.60-1.20); POTASSIUM 4.5 mmol/L (3.5-5.1)
[2017-03-16 13:03] LABS: URINE APPEARANCE CLEAR (CLEAR); URINE BILIRUBIN NEG (NEG); URINE COLOR YELLOW; URINE NITRITE NEG (NEG); URINE PH 6.5 (4.5-7.5); URINE SPECIFIC GRAVITY 1.012 (1.000-1.030); UROBILINOGEN NEG (NEG)
[2017-03-16 13:15] LABS: MANUAL MICROSCOPIC REQUIRED? NO; REVIEW REQ? NO
--- NOTE | 2017-04-12 21:32 | History and Physical ---
History & Physical Date Apr 12, 2017. Chief Complaint right foot pain History of Present Illness The patient is a 62 year old female with complaints of right foot pain and deformities of the 2nd through 5th toes. She has been treated conservatively for hammertoes of the lesser toes but has failed conservative management. She is now being set up for surgical tx. Past Medical/Surgical History Medical Problems: (1) Anxiety (2) Carotid stenosis (3) CREST syndrome (4) CVA (cerebral infarction) (5) DJD (degenerative joint disease), lumbar (6) DM type 2 (diabetes mellitus, type 2) (7) Esophagitis (8) Gastroparesis (9) Generalized weakness (10) Hyperlipidemia (11) Hypothyroidism (12) Iron deficiency anemia (13) Kidney stone (14) Myalgia and myositis (15) PVD (peripheral vascular disease) Surgical Problems: (1) H/O foot surgery (2) History of hysterectomy (3) History of spinal fusion (4) S/P appendectomy Allergies Coded Allergies: Clarithromycin (Verified Allergy, Unknown, FEEL WEIRD, 03/15/17) Home Medications Scheduled Aspirin (Aspirin Ec), 81 MG PO QAM Atorvastatin (Lipitor), 80 MG PO QPM Bisacodyl (Dulcolax), 2 TAB PO QPM Cholecalciferol (Vitamin D3), 1 TAB PO QAM Clopidogrel (Plavix), 75 MG PO QAM Cyanocobalamin (Vitamin B12), 1 TAB PO QAM Docusate Calcium (Docusate Calcium), 1 TAB PO QPM Donepezil Hydrochloride (Aricept), 1 TAB PO HS Esomeprazole Magnesium (Nexium), 40 MG PO QAM Ferrous Sulfate (Kp Ferrous Sulfate), 1 TAB PO QAM Insulin Glargine (Lantus), 45 UNITS SC QAM Levothyroxine Sodium (Levothyroxine Sodium), 1 TAB PO QAM Loratadine (Claritin), 10 MG PO QPM Losartan Potassium (Losartan Potassium), 1 TAB PO QAM Metformin Hcl (Glucophage), 1,000 MG PO BID Mirtazapine Soltab (Remeron Soltab), 30 MG PO QPM Multivitamin (Multivitamin), 1 TAB PO QAM Pregabalin (Lyrica), 1 CAP PO BID Ropinirole (Requip), 0.5 MG PO QPM Trazodone Hcl (Trazodone), 50 MG PO HS Venlafaxine Hcl (Venlafaxine Hcl Er), 1 TAB PO QAM Scheduled PRN Albuterol Sulfate (Proair Respiclick), 2 PUFFS INH DIRECTED PRN for Wheezing Dicyclomine Hcl (Dicyclomine Hcl), 1 CAP PO BID PRN for abdominal cramping Physical Examination Skin: warm/dry, no rash Eyes: normal inspection ENT: normal ENT inspection Head: normocephalic, atraumatic Neck: supple, no adenopathy, trachea midline Respiratory/Chest: lungs clear, normal breath sounds, no respiratory distress Cardiovascular: regular rate, rhythm Abdomen / GI: normal bowel sounds, non tender Extremities: + pertinent finding (Right foot: hammertoes of the 2nd, 3rd, 4th, and 5th toes. Tender to palpation along all the lesser toes. Decrease ROM with the lesser toes. No ecchymosis or erythema. ) Neurologic/Psych: no motor/sensory deficits, alert, oriented x 3 Diagnosis Hammertoes of the 2nd, 3rd, 4th, and 5th toes of the right foot. Plan of Treatment Recommend a right foot 2nd, 3rd, 4th, and 5th toe hammertoe correction with DuVries arthroplasty and implantation of Arthrex retrofusion hammertoe implant. All potential risks, benefits, complications, alternatives, and rehab have been discussed and she wishes to proceed. She will be scheduled for 04.13.17.
[~2017-04-13] VITALS: Ht 154.9 cm; Wt 81.1 kg
[~2017-04-13 05:05] MED LIST changes: +ALBU18002 INH; +ASPI81TA28 PO; -ATOR-24 PO; +ATOR-26 PO; +BISA-16 PO; +CHOL1000 PO; -CHOL1CAP57 PO; +CYAN100020 PO; -CYAN100048 PO; +CZR25 PO; +DICY10CA12 PO; -DOCU100C31 PO; -EFF75 PO; +FERR1TAB13 PO; -GLC/500 PO; +LEVO75TA5 PO; -LEVO88TA3 PO; -LOSA25TA18 PO; +METF-384 PO; -MIRT15TA3 PO; +MIRT30TA2 PO; +ROPI0.5T15 PO; -RQP/5 PO; -TRAM-10 PO; +VENL-273 PO; +[UNRECOGNIZED DRUG - CODE] PO
[2017-04-13 05:25] VITALS: BP 130/79; PULSE 76; TEMP 36.5; O2SAT 96; Ht 154.9 cm; Wt 81.1 kg
[2017-04-13] MEDS ORDERED: LACTATED RINGER'S 1000ML 1,000 ML IV SCH (06:00)
[2017-04-13] MEDS ORDERED: CEFAZOLIN 2000 MG/60 ML D5W IV SCH (06:00)
[2017-04-13] MEDS ORDERED: BUPIVACAINE 0.5 % 5 MG/1 ML PF 10ML VIAL ONE (06:28)
[2017-04-13] MEDS ORDERED: PROPOFOL IV EMULSION 10 MG/ML 20 ML VIAL IV ONE (07:09)
[2017-04-13] MEDS ORDERED: FENTANYL CITRATE INJ 50 MCG/1 ML 2 ML VIAL ONE ×2 (07:09→09:44)
[2017-04-13] MEDS ORDERED: MIDAZOLAM HCL 1 MG/ML 2ML VIAL ONE (07:09)
[2017-04-13] MEDS ORDERED: BACITRACIN 50000 UNIT VIAL ONE (07:09)
[2017-04-13] MEDS ORDERED: ONDANSETRON INJ 2 MG/ML 2 ML VIAL ONE (07:09)
[2017-04-13] MEDS ORDERED: LIDOCAINE HCL 2% 2 ML VIAL (20MG/ML) ONE (07:09)
[2017-04-13] MEDS ORDERED: DEXAMETHASONE SOD INJ 4 MG/ML VIAL ONE (07:09)
--- NOTE | 2017-04-13 07:35 | History & Physical Bridge Note ---
H&P Re-Evaluation Bridge Note: I have examined the patient, reviewed the History & Physical and in the interval since the performance of the History & Physical I have noted the following changes of clinical significance: No changes noted
[2017-04-13] MEDS ORDERED: FENTANYL CITRATE INJ 50 MCG/1 ML 2 ML VIAL IV PRN (08:30)
[2017-04-13] MEDS ORDERED: ONDANSETRON INJ 2 MG/ML 2 ML VIAL IV PRN (08:30)
[2017-04-13] MEDS ORDERED: ATROPINE SULFATE 0.1 MG/ML 5ML SYR IV PRN (08:30)
[2017-04-13] MEDS ORDERED: KETAMINE HCL INJ 50 MG/ML 10 ML VIAL ONE (09:06)
[2017-04-13] MEDS ORDERED: PROM25TA9 PO (10:09)
[2017-04-13] MEDS ORDERED: OXYC-57 PO (10:09)
--- NOTE | 2017-04-13 10:12 | Discharge Instructions ---
Discharge Instructions Date of Service Apr 13, 2017. Admission Reason for Admission: Pain in Right Foot, Right 2-5 Toe Hammer Toe Discharge Discharge Diagnosis / Problem: right foot hammertoes 2nd, 3rd, 4th, and 5th toes Discharge Goals Goal(s): Decrease discomfort Activity Recommendations Activity Limitations: per Instructions/Follow-up section Weightbearing Status: Right partial (Heel weightbearing only but non- weightbearing if unable to heel weightbear) . Instructions / Follow-Up Instructions / Follow-Up ACTIVITY RECOMMENDATIONS: Limitations: Heel weight bearing only if able to tolerate. SPECIAL CARE INSTRUCTIONS: * Some drainage onto the dressing is normal and is no cause for alarm. * Some swelling is natural especially after walking. * When resting, keep your foot elevated above the level of your heart. * Call [facility] if you notice: -Increased drainage -Fever over 101 degrees F -Severe constant pain * Restart your Plavix and Aspirin on 04.14.17. BANDAGE: * Leave bandage/cast in place unless otherwise directed. * Keep bandage/cast dry at all times. PIN CARE: * Leave pins alone. * If pins come loose or fall out, notify physician. FOLLOW UP VISIT WITH DR. GARCIA If appointment is not already scheduled: Please call [facility] after you get home today to schedule a follow-up appointment for [address] Garcia at . Current Hospital Diet Patient's current hospital diet: Discharge Diet Recommended Diet: Diabetes Type 1 Diet Procedures Procedures Performed: Right DuVries Procedure on 2,3rd,&5th Toes, Arthroplasty with Arthrex RetroFusion Implants; pinned 4th toe Pending Studies Studies pending at discharge: no Medical Emergencies . Who to Call and When: Medical Emergencies: If at any time you feel your situation is an emergency, please call 911 immediately. . Non-Emergent Contact Non-Emergency issues call your: Surgeon Call Non-Emergent contact if: temperature is above 101, your pain is not controlled, your pain is worsening . "Provider Documentation" section prepared by Alexandre Garza. . VTE Core Measure Inpt VTE Proph given/why not?: SCD's
[2017-04-13] MEDS ORDERED: OXYCODONE/ACETAMINOPHEN 5-325 TAB PO PRN (10:15)
[2017-04-13 10:50] VITALS: BP 108/66; PULSE 72; TEMP 36.5; O2SAT 92
--- NOTE | 2017-04-13 10:52 | [facility] Post Operative Brief Note ---
Immediate Operative Summary Operative Date Apr 13, 2017. Pre-Operative Diagnosis Hammertoes of the 2nd, 3rd, 4th, and 5th toes of the right foot, Flexion contractures 2/3/4/5 toes. Post-Operative Diagnosis Hammertoes of the 2nd, 3rd, 4th, and 5th toes of the right foot Right foot: Flexion contractures 2/3/4/5 toes Procedure(s) Performed Right DuVries Procedure on 2nd,3rd,4th &5th Toe PIP joints, Arthroplasty with Arthrex RetroFusion Implants 2nd,3rd and 5th toes; K-wire pinning 4th toe Surgeon Dr. Shania Isabel Digital Marketing Program Manager Surgeon(s) Cade Garza PA-C Estimated Blood Loss 1mL Findings See Dict Specimens none per surgeon Drains None Anesthesia Popliteal block with sedation Complication(s) None Disposition Recovery Room / PACU
--- NOTE | 2017-04-13 10:53 | DIAGNOSTIC IMAGING REPORT ---
R FOOT MIN 3 VIEWS ROUTINE CLINICAL HISTORY: 62 years-old Female presenting with post op. TECHNIQUE: Frontal, oblique, and lateral views the right foot were obtained. COMPARISON: Fluoroscopic views of the right foot performed earlier the same day. FINDINGS: Arthrodesis of the proximal interphalangeal joints of the second, third, and fifth toes again noted. Pin fixation across the fourth metatarsophalangeal joint and proximal and distal interphalangeal joints of the fourth toe again noted. Overlying and age partially tears underlying osseous detail. No malalignment. Osteopenia suggested. IMPRESSION: Pin fixation across the fourth MTP and interphalangeal joints of the fourth toe. Arthrodesis of the second, third, and fifth PIP joints. No malalignment. Electronically signed by: Pedro Baumann M.D. 04/13/2017 10:52 AM Dictated Date/Time: 04/13/2017 10:50 AM
--- NOTE | 2017-04-13 10:54 | DIAGNOSTIC IMAGING REPORT ---
INTRAOPERATIVE RIGHT FOOT 2 VIEWS CLINICAL HISTORY: RT HAMMER TOE RECONSTRUCTION COMPARISON STUDY: No previous studies for comparison. FINDINGS: 93 seconds of fluoroscopic time was utilized. 2 intraoperative fluoroscopic spot images are provided for interpretation. There are osteotomies at the level of the second through fifth proximal to phalangeal joints. PIP implants are present involving the second third and fifth toes. There is an orthopedic wire traversing the proximal interphalangeal joint, distal interphalangeal joint, and metatarsal phalangeal joint of the fourth toe. IMPRESSION: Intraoperative fluoroscopic spot images as described above Electronically signed by: Rick Becerril M.D. 04/13/2017 10:52 AM Dictated Date/Time: 04/13/2017 10:51 AM
--- NOTE | 2017-04-13 11:09 | Anesthesiology Progress Note ---
Anesthesia Post Op Note Date & Time Apr 13, 2017 at 11:09 Vital Signs Pain Intensity: 0 Vital Signs Past 12 Hours Date Time Temp Pulse Resp B/P (MAP) Pulse Ox O2 Delivery O2 Flow Rate FiO2 04/13/17 10:45 36.0 68 15 105/76 94 Room Air 04/13/17 10:35 76 15 115/58 96 Room Air 04/13/17 10:25 69 16 91/66 (78) 100 Oxymask 10 04/13/17 10:15 73 19 93/68 (74) 100 Oxymask 10 04/13/17 10:08 90/59 (67) 04/13/17 10:05 36.6 73 18 100 Oxymask 10 04/13/17 05:25 36.5 76 20 130/79 (96) 96 Room Air Notes Mental Status: alert / awake / arousable, participated in evaluation Pt Amnestic to Procedure: Yes Nausea / Vomiting: adequately controlled Pain: adequately controlled Airway Patency, RR, SpO2: stable & adequate BP & HR: stable & adequate Hydration State: stable & adequate Anesthetic Complications: no major complications apparent
[2017-04-13 11:20] VITALS: BP 107/53; PULSE 92; O2SAT 94
[2017-04-13 11:50] VITALS: BP 96/46; PULSE 74; TEMP 36.7; O2SAT 92
--- NOTE | 2017-04-13 14:30 | OPERATIVE REPORT ---
DATE OF OPERATION: 04/13/2017 PREOPERATIVE DIAGNOSES: 1. Right second, third, fourth and fifth proximal interphalangeal joint hammertoe deformities. 2. Flexion contractures of the second, third, fourth and fifth toes. POSTOPERATIVE DIAGNOSIS: Same. PROCEDURE: 1. Right foot second, third, fourth and fifth toe DuVries arthroplasties of the proximal interphalangeal joints. 2. Arthroplasty with RetroFusion implants of the second, third and fifth toes. 3. K-wire fixation of the fourth toe. SURGEON: Dr. Isabel. PLANT QUALITY MANAGER: Alexandre Garza PA-C who was present for patient positioning, sterile prep and drape, management of retractors and instruments. He was present through the critical portions of the case including wound closure, application of sterile dressing and transport of the patient to recovery. ANESTHESIA: Popliteal block with sedation. SPECIMENS: None. DRAINS: None. COMPLICATIONS: None. BLOOD LOSS: 1 mL. PERTINENT HISTORY: This is a 62-year-old female who had prior surgery to her right foot and developed worsening flexed hammertoe deformities of the second, third, fourth and fifth toes. She had preference for arthroplasty implants instead of external pins and the patient was then scheduled for fixation of her painful hammertoe deformities with Arthrex RetroFusion implants. She had failed all conservative measures including shoe wear modification, activity modification, anti-inflammatories, rest, use of shoe inserts and toe separators. She had radiographic confirmation of hammertoe deformities and was scheduled for surgery as indicated. All potential risks, benefits, complications, alternatives, rehab, potential for incomplete relief of symptoms, need for further surgery, DVT, PE, , persistent pain, swelling, scarring, weakness, neurovascular injury, wound complications, hardware failure and bone fracture were discussed with the patient. The patient decided to proceed with the procedure as indicated. PROCEDURE: The patient was administered popliteal block in the preop holding area then taken to the operative suite and placed supine on the operating room table. After review of the consent and identification of proper operative site, the patient was sedated and the right lower extremity was then sterilely prepped and draped in usual fashion, elevated and exsanguinated with an Esmarch bandage. Esmarch tourniquet applied over sterile surgical towel at the level of the ankle. Next, transverse incisions were made over the proximal interphalangeal joints of the second, third, fourth and fifth toes respectively with a 15 blade scalpel. This incision was then made through the skin, subcutaneous tissue, extensor mechanism and joint capsule. A small ellipse of tissue full thickness was then excised with a 15 blade scalpel. Next, the collateral ligaments of the proximal phalanx were then resected using a 15 blade scalpel for the second, third, fourth and fifth toes. This was then followed by use of a bone biting rongeur to resect the distal aspect of the proximal phalanx at the level of the metaphyseal flare with a bone biting rongeur. Next, a small 2.5 mm guide pin was placed in the medullary canal of the proximal phalanx of the second, third, fourth and fifth toes and then the 2.5 mm guidepin was driven through the middle phalanx and out the distal phalanx with a small guide pin for the second, third, fourth, and fifth toes respectively. Next, a 2.5 mm hand drill was then used to drill the proximal phalanx and the middle phalanx through to the distal phalanx and out the tip of the toe. Next, a RetroFusion implant after irrigation with sterile normal saline was then placed into the medullary canal of the 2nd proximal phalanx. This was screwed down to the level of the reverse threads and then the screwdriver was engaged through the middle and distal phalanx under live visualization and fluoroscopic assistance and then the screw was then reversed to engage the middle phalanx and then tightened to compress the fusion. This was then repeated for the third toe without difficulty. After the RetroFusion implant was placed into the fourth toe there was noted to be a small crack in the proximal phalanx which rendered the threads loosened, therefore the RetroFusion implant was then abandon on the fourth toe as could not achieve adequate compression. Next RetroFusion implant was then placed into the fifth proximal phalanx and used to compress the arthroplasty without difficulty. Next, 0.045 inch K-wire was driven out the tip of the fourth toe and in a retrograde fashion drilled into the proximal phalanx into the fourth metatarsal under live fluoroscopic assistance. This pin was then bent, cut and capped with a Jergens ball. All wounds were then copiously irrigated with sterile normal saline and a 4-0 nylon suture was then used to close the skin incisions. Next, sterile compressive forefoot dressing was applied after final radiographs were obtained. The tourniquet was released. The patient was awakened and taken to recovery in stable condition. I attest to the content of the Intraoperative Record and any orders documented therein. Any exception s are noted below.
== END 2017-04-13 12:33 | disposition home or self-care (01) ==
LOC: C.ACU 05:05
PROVIDERS: ATTEND Orthopaedic Surgery Sports Medicine
DX: M20.41 Other hammer toe(s) (acquired), right foot (principal); M24.574 Contracture, right foot; F41.9 Anxiety disorder, unspecified; E11.9 Type 2 diabetes mellitus without complications; E78.5 Hyperlipidemia, unspecified; E03.9 Hypothyroidism, unspecified; Z87.442 Personal history of urinary calculi; Z86.73 Personal history of transient ischemic attack (TIA), and cerebral infarction without residual deficits; I73.9 Peripheral vascular disease, unspecified; Z90.710 Acquired absence of both cervix and uterus; Z98.1 Arthrodesis status; Z90.89 Acquired absence of other organs; Z79.82 Long term (current) use of aspirin; Z79.84 Long term (current) use of oral hypoglycemic drugs; Z79.02 Long term (current) use of antithrombotics/antiplatelets; I25.10 Atherosclerotic heart disease of native coronary artery without angina pectoris; J44.9 Chronic obstructive pulmonary disease, unspecified; Z95.5 Presence of coronary angioplasty implant and graft; Z79.4 Long term (current) use of insulin; M19.90 Unspecified osteoarthritis, unspecified site; K76.0 Fatty (change of) liver, not elsewhere classified; G25.81 Restless legs syndrome; M34.1 CR(E)ST syndrome; M81.0 Age-related osteoporosis without current pathological fracture

== ENCOUNTER 2017-09-07 05:11 | Day surgery (SDC) | payer OTHER ==
[2017-08-29 12:36] VITALS: BMI 33.0
--- NOTE | 2017-08-29 13:08 | PAT Medication Instructions ---
Service Date Aug 29, 2017. Current Home Medication List Albuterol Sulfate (Proair Respiclick), 2 PUFFS INH DIRECTED PRN for Wheezing Aspirin (Aspirin Ec), 81 MG PO QAM Atorvastatin (Lipitor), 80 MG PO QPM Bisacodyl (Dulcolax), 2 TAB PO QPM PRN for PRN Cholecalciferol (Vitamin D3), 1 TAB PO QAM Clopidogrel (Plavix), 75 MG PO QAM Cyanocobalamin (Vitamin B12), 1 TAB PO QAM Dicyclomine Hcl (Dicyclomine Hcl), 1 CAP PO BID PRN for abdominal cramping Docusate Calcium (Docusate Calcium), 1 TAB PO QPM PRN for PRN Donepezil Hydrochloride (Aricept), 1 TAB PO HS Esomeprazole Magnesium (Nexium), 40 MG PO QAM Ferrous Sulfate (Kp Ferrous Sulfate), 1 TAB PO QAM Insulin Glargine (Lantus), 40 UNITS SC QAM Levothyroxine Sodium (Levothyroxine Sodium), 1 TAB PO QAM Loratadine (Claritin), 10 MG PO QPM Losartan Potassium (Losartan Potassium), 1 TAB PO QAM Metformin Hcl (Glucophage), 1,000 MG PO BID Mirtazapine Soltab (Remeron Soltab), 30 MG PO QPM Multivitamin (Multivitamin), 1 TAB PO QAM Pregabalin (Lyrica), 1 CAP PO BID Ropinirole (Requip), 0.5 MG PO QPM Trazodone Hcl (Trazodone), 50 MG PO HS Venlafaxine Hcl (Venlafaxine Hcl Er), 1 TAB PO QAM Medication Instructions For Your Scheduled Surgery - Hold the following medications 24 hours prior to surgery: Ropinirole (Requip), 0.5 MG PO QPM - Hold the following medications the morning of surgery: Bisacodyl (Dulcolax), 2 TAB PO QPM PRN for PRN Cholecalciferol (Vitamin D3), 1 TAB PO QAM Cyanocobalamin (Vitamin B12), 1 TAB PO QAM Dicyclomine Hcl (Dicyclomine Hcl), 1 CAP PO BID PRN for abdominal cramping Docusate Calcium (Docusate Calcium), 1 TAB PO QPM PRN for PRN Ferrous Sulfate (Kp Ferrous Sulfate), 1 TAB PO QAM Losartan Potassium (Losartan Potassium), 1 TAB PO QAM Metformin Hcl (Glucophage), 1,000 MG PO BID Multivitamin (Multivitamin), 1 TAB PO QAM - Take the following medications the morning of surgery with a sip of water: Venlafaxine Hcl (Venlafaxine Hcl Er), 1 TAB PO QAM Pregabalin (Lyrica), 1 CAP PO BID Levothyroxine Sodium (Levothyroxine Sodium), 1 TAB PO QAM Esomeprazole Magnesium (Nexium), 40 MG PO QAM Clopidogrel (Plavix), 75 MG PO QAM (okay to continue per surgeon) Aspirin (Aspirin Ec), 81 MG PO QAM (okay to continue per surgeon) Albuterol Sulfate (Proair Respiclick), 2 PUFFS INH DIRECTED PRN for Wheezing (if needed) - Take the following medications as scheduled the night before surgery: Trazodone Hcl (Trazodone), 50 MG PO HS Pregabalin (Lyrica), 1 CAP PO BID Mirtazapine Soltab (Remeron Soltab), 30 MG PO QPM Loratadine (Claritin), 10 MG PO QPM Donepezil Hydrochloride (Aricept), 1 TAB PO HS Docusate Calcium (Docusate Calcium), 1 TAB PO QPM PRN for PRN (if needed) Dicyclomine Hcl (Dicyclomine Hcl), 1 CAP PO BID PRN for abdominal cramping (if needed) Atorvastatin (Lipitor), 80 MG PO QPM Bisacodyl (Dulcolax), 2 TAB PO QPM PRN for PRN (if needed) Albuterol Sulfate (Proair Respiclick), 2 PUFFS INH DIRECTED PRN for Wheezing (if needed) - For Insulin Dependent Diabetic patients: Test blood sugar A.M. of surgery. - If Blood sugar greater than 150, take half of your regular dose of: Insulin Glargine (Lantus), take 20 units - If Blood sugar less than 150, do not take any: Insulin Glargine (Lantus) If you have any questions please call us at [phone] or [phone] or [phone]
[2017-08-29 14:12] LABS: BASO % 0.7 %; BASO ABS # 0.06 K/uL (0-0.2); EOS % 4.9 %; EOS ABS # 0.45 K/uL (0-0.5); HEMATOCRIT 35.6 % (37-47); HEMOGLOBIN 11.5 g/dL (12.0-16.0); IG# 0.04 K/uL (0.00-0.02); LYMPH % 30.3 %; LYMPH ABS # 2.76 K/uL (1.2-3.4); MEAN CELL VOLUME 94.9 fL (80-100); MEAN CORPUSCULAR HEMOGLOBIN 30.7 pg (25-34); MEAN CORPUSCULAR HGB CONC 32.3 g/dl (32-36); MEAN PLATELET VOLUME 9.8 fL (7.4-10.4); MONO % 10.9 %; MONO ABS # 0.99 K/uL (0.11-0.59); NEUT % 52.8 %; NUCLEATED RED BLOOD CELL ABS 0.07 K/uL (0-0); PLATELET COUNT 359 K/uL (130-400); RED CELL DISTRIBUTION WIDTH CV 18.6 % (11.5-14.5); RED CELL DISTRIBUTION WIDTH SD 63.8 fL (36.4-46.3)
[2017-08-29 14:23] LABS: PTT PATIENT 26.2 SECONDS (21.0-31.0)
[2017-08-29 14:31] LABS: HEMOGLOBIN A1C 5.9 % (4.5-5.6)
[2017-08-29 14:53] LABS: CALCIUM 8.9 mg/dl (8.5-10.1); CREATININE 0.94 mg/dl (0.60-1.20); POTASSIUM 4.1 mmol/L (3.5-5.1)
--- NOTE | 2017-09-06 16:11 | HISTORY & PHYSICAL EXAMINATION ---
DATE OF ADMISSION: 09/07/2017 CHIEF COMPLAINT: Adhesive capsulitis of the left shoulder. HISTORY OF PRESENT ILLNESS: Mike is a pleasant 62-year-old female who has been dealing with left shoulder pain since December. She has a caregiver with her at all times. She has a history of stroke. She is functionally limited. She uses a walker for ambulation. Her shoulder has been getting more and more painful over the past 6 months. Her primary care physician diagnosed her with adhesive capsulitis. She had an injection which did not help much. She also did therapy. Unfortunately, she is still having a lot of pain. She presented to my office and has elected to undergo manipulation under anesthesia of her left shoulder. PAST MEDICAL HISTORY: Significant for diabetes, osteoarthritis, hypothyroidism, depression, hyperlipidemia, anemia, and stroke. PAST SURGICAL HISTORY: Significant for cervical surgery, lumbar surgery, surgery on her foot and appendectomy. ALLERGIES: BIAXIN. MEDICATIONS: Multivitamins, Plavix, Synthroid, losartan, omeprazole, aspirin, Effexor, metformin, Lyrica, Lantus, atorvastatin, mirtazapine, donepezil, Claritin, trazodone, ropinirole. FAMILY HISTORY: Significant for heart disease, stroke, breast cancer and diabetes. SOCIAL HISTORY: She is . She lives alone, rarely drinks. Smokes a pack a day for 32 years and does little activity. REVIEW OF SYSTEMS: Complains mostly of left shoulder pain and tightness. All other pertinent review of systems are negative. PHYSICAL EXAMINATION: CONSTITUTIONAL: She is a well-developed, well-nourished female with obvious functional limitations due to stroke. HEENT: Pupils equal, round and reactive to light. Extraocular motion intact. Oral mucosa is pink and moist. HEART: Regular rate per radial pulse. LUNGS: Elin symmetrically bilaterally with no audible breath sounds. ABDOMEN: Soft, nontender, nondistended. MUSCULOSKELETAL: On physical examination of her shoulder, she has about 50 degrees of forward elevation, 20 degrees of abduction, 20 degrees of external rotation actively. Passively, I can get her just a little bit further, but she does have a hard end point. She has 5/5 muscle strength throughout. She does have global pain throughout the shoulder, especially end ranges of motion. IMAGING DATA: X-rays of the shoulder show very mild osteoarthritis with a very small inferior humeral osteophyte. IMPRESSION: Adhesive capsulitis of the left shoulder. PLAN: Will proceed with a manipulation under anesthesia of the left shoulder. Postoperatively, will place a cortisone injection and she will be placed in a sling. She will be discharged to home on oral pain medications.
[~2017-09-07] VITALS: Ht 154.9 cm; Wt 79.7 kg
[2017-09-07 05:40] VITALS: BP 106/66; PULSE 80; TEMP 36.6; O2SAT 96; Ht 154.9 cm; Wt 79.7 kg
[2017-09-07] MEDS ORDERED: ACETAMINOPHEN 500 MG TAB PO SCH (06:00)
[2017-09-07] MEDS ORDERED: FAMOTIDINE 20 MG TAB PO SCH (06:00)
[2017-09-07] MEDS ORDERED: CEFAZOLIN 2000MG IV PUSH 15 ML IV SCH (06:00)
[2017-09-07] MEDS ORDERED: LACTATED RINGER'S 1000ML 1,000 ML IV SCH (06:00)
[2017-09-07] MEDS ORDERED: LACTATED RINGER'S 1000ML IV SCH (06:00)
[2017-09-07] MEDS ORDERED: ROPIVACAINE 0.5% 5 MG/ML 30 ML VIAL ONE (06:06)
[2017-09-07] MEDS ORDERED: PROPOFOL IV EMULSION 10 MG/ML 20 ML VIAL IV ONE (06:43)
[2017-09-07] MEDS ORDERED: MIDAZOLAM HCL 1 MG/ML 2ML VIAL ONE (06:43)
[2017-09-07] MEDS ORDERED: FENTANYL CITRATE INJ 50 MCG/1 ML 2 ML VIAL ONE (06:43)
[2017-09-07] MEDS ORDERED: LIDOCAINE HCL 2% 2 ML VIAL (20MG/ML) ONE (06:44)
[2017-09-07] MEDS ORDERED: METHYLPREDNISOLONE ACETATE 80 MG/ML VIAL ONE (06:56)
[2017-09-07] MEDS ORDERED: BUPIVACAINE/EPINEPHRINE 0.5% MPF 1:200,000 30 ML VIAL ONE (06:57)
[2017-09-07] MEDS ORDERED: EpHEDrine SULFATE INJ 50 MG/ML AMP IV PRN (07:00)
[2017-09-07] MEDS ORDERED: ATROPINE SULFATE 0.1 MG/ML 5ML SYR IV PRN (07:00)
[2017-09-07] MEDS ORDERED: ONDANSETRON INJ 2 MG/ML 2 ML VIAL IV PRN ×2 (07:00→07:15)
[2017-09-07] MEDS ORDERED: FENTANYL CITRATE INJ 50 MCG/1 ML 2 ML VIAL IV PRN (07:00)
--- NOTE | 2017-09-07 07:08 | [facility] Post Operative Brief Note ---
Immediate Operative Summary Operative Date Sep 07, 2017. Pre-Operative Diagnosis Adhesive Capsulitis Left Shoulder Post-Operative Diagnosis Adhesive Capsulitis Left Shoulder Procedure(s) Performed Left Shoulder Manipulation Surgeon Dr. Bert Bo Stereotyper Apprentice Surgeon(s) None Estimated Blood Loss 0ml Findings Consistent with Post-Op Diagnosis Specimens none per surgeon Complication(s) none Disposition Disposition: Recovery Room / PACU
[2017-09-07] MEDS ORDERED: SODIUM CHLORIDE 0.9% 1000ML 1,000 ML IV SCH (07:14)
[2017-09-07] MEDS ORDERED: OXYCODONE/ACETAMINOPHEN 5-325 TAB PO PRN (07:15)
[2017-09-07] MEDS ORDERED: OXYC-57 PO (07:16)
--- NOTE | 2017-09-07 07:18 | Discharge Instructions ---
Discharge Instructions Date of Service Sep 07, 2017. Admission Reason for Admission: Left Shoulder Adhesive Capsulitis Discharge Discharge Diagnosis / Problem: SAME ABOVE Discharge Goals Goal(s): Decrease discomfort, Improve function Activity Recommendations Activity Limitations: as noted below Lifting Limitations: gradually increase as tolerated Exercise/Sports Limitations: until after follow-up appointment . Instructions / Follow-Up Instructions / Follow-Up MEDICATIONS: * Resume previous medications unless instructed otherwise by your surgeon. * Always take pain medication on a full stomach or with food to avoid upset stomach. * Do not drink alcohol or drive while taking narcotics. * Ibuprofen or Tylenol may be taken if narcotic not needed. SPECIAL CARE INSTRUCTIONS: __ None _X_ Keep extremity elevated and iced x 48 hours; apply ice 20-30 minutes 8-10 times/day. May remove at night. __ Sling __24 hrs/day __ Remove at night __ Shoulder Immobilizer __ 24 hrs/day __ Remove at night __ Dressing __ Maintain until seen in office, may shower with plastic over site __ Remove dressings in 24-48 hours and then may shower __ Cover incisions with band-aids after showering __ Do not remove steri-strips Call physician if chills or temperature rises above 102 degrees or pain unrelieved by prescribed pain medications at . . Current Hospital Diet Patient's current hospital diet: Discharge Diet Recommended Diet: Regular Diet Procedures Procedures Performed: Left Shoulder Manipulation Pending Studies Studies pending at discharge: no Laboratory Results Hemoglobin A1c Test 08/29/17 13:17 Range/Units Estimated Average Glucose 123 mg/dl Hemoglobin A1c 5.9 H 4.5-5.6 % Medical Emergencies . Who to Call and When: Medical Emergencies: If at any time you feel your situation is an emergency, please call 911 immediately. . Non-Emergent Contact Non-Emergency issues call your: Primary Care Provider . "Provider Documentation" section prepared by Bert Dooley. . VTE Core Measure Inpt VTE Proph given/why not?: Treatment not indicated
[2017-09-07 07:45] VITALS: BP 113/70; PULSE 80; TEMP 36.6; O2SAT 95
--- NOTE | 2017-09-07 07:46 | Anesthesiology Progress Note ---
Anesthesia Post Op Note Date & Time Sep 07, 2017 at 07:46 Vital Signs Pain Intensity: 0 Vital Signs Past 12 Hours Date Time Temp Pulse Resp B/P (MAP) Pulse Ox O2 Delivery O2 Flow Rate FiO2 09/07/17 07:40 36.4 83 15 118/69 97 Room Air 09/07/17 07:30 84 16 118/72 100 Nasal Cannula 2 09/07/17 07:20 36.0 90 16 118/72 100 Nasal Cannula 2 09/07/17 05:40 36.6 80 20 106/66 (79) 96 Room Air Notes Mental Status: alert / awake / arousable, participated in evaluation Pt Amnestic to Procedure: Yes Nausea / Vomiting: adequately controlled Pain: adequately controlled Airway Patency, RR, SpO2: stable & adequate BP & HR: stable & adequate Hydration State: stable & adequate Anesthetic Complications: no major complications apparent
[2017-09-07 08:15] VITALS: BP_SYST 113; BP_SYST 121; BP_DIAS 66; BP_DIAS 70; PULSE 78; O2SAT 98
[2017-09-07 08:30] VITALS: BP 133/76; PULSE 79; TEMP 36.1; O2SAT 96
--- NOTE | 2017-09-07 09:59 | OPERATIVE REPORT ---
DATE OF OPERATION: 09/07/2017 PREOPERATIVE DIAGNOSIS: Adhesive capsulitis of the left shoulder. POSTOPERATIVE DIAGNOSIS: Same. PROCEDURE: Manipulation under anesthesia, left shoulder. SURGEON: Dr. Bert Bo. ENVELOPE FOLDING MACHINE ADJUSTER: None. ANESTHESIA: General. COMPLICATIONS: None. CONDITION: Stable to PACU. INDICATIONS: Mike is a pleasant 62-year-old female who has a history of a stroke on the right side. She is functionally limited, but she does ambulate with a walker. She does require constant care. Unfortunately, she has been having a lot of pain and tightness of her left shoulder. Clinical examination was diagnostic for adhesive capsulitis of the shoulder. Given her current state, I felt MRI would be painful. I do not think she was a surgical candidate, so she elected to undergo manipulation under anesthesia of the shoulder. DESCRIPTION OF PROCEDURE: On 09/07/2017, she arrived at [facility] for the above procedure. She was seen in the preoperative holding area and the operative extremity was identified and signed. She was then taken back to the operating room, laid on the table in supine position and put under general anesthesia. A time-out was done and the patient and operative extremity was properly identified. On preoperative physical examination, she had about 80 degrees of abduction and 30 degrees of external rotation. A gentle manipulation was done under anesthesia and I was able to get full range of motion of her shoulder. I then injected the glenohumeral joint with 80 mg of Depo-Medrol and 5 mL of Marcaine. She tolerated the procedure well. She was then taken to the postanesthesia care unit in stable condition. I attest to the content of the Intraoperative Record and any orders documented therein. Any exception s are noted below.
--- NOTE | 2017-09-07 13:00 | Progress Note ---
Progress Note Date of Service Sep 07, 2017. Progress Note Upon entering the operating room, Dr. Bo notified me that the antibiotic ( 1gm Ancef) was not necessary for this procedure and gave me a verbal order not to give it. I notified the pre-operative nurse (Doris) to cancel the order and correct the documentaion, but said she was unable to undo her action on the record. To clarify, it was not an error that the nurse pulled the medication to be given, Dr. Bo ordered it in error.
== END 2017-09-07 08:30 | disposition home or self-care (01) ==
LOC: C.ACU 05:11
PROVIDERS: ATTEND Orthopaedic Surgery
DX: M75.02 Adhesive capsulitis of left shoulder (principal); Z86.73 Personal history of transient ischemic attack (TIA), and cerebral infarction without residual deficits; E11.9 Type 2 diabetes mellitus without complications; M19.90 Unspecified osteoarthritis, unspecified site; E03.9 Hypothyroidism, unspecified; F32.9 Major depressive disorder, single episode, unspecified; E78.5 Hyperlipidemia, unspecified; D64.9 Anemia, unspecified; Z79.02 Long term (current) use of antithrombotics/antiplatelets; Z79.899 Other long term (current) drug therapy; Z79.4 Long term (current) use of insulin; Z88.1 Allergy status to other antibiotic agents; Z82.49 Family history of ischemic heart disease and other diseases of the circulatory system; Z82.3 Family history of stroke; Z80.3 Family history of malignant neoplasm of breast; Z83.3 Family history of diabetes mellitus

== ENCOUNTER 2017-10-02 22:26 | Inpatient (IN) | payer OTHER ==
[~2017-10-02] VITALS: Ht 154.9 cm; Wt 79.2 kg
[~2017-10-02 22:26] MED LIST changes: +OXYC-57 PO
[2017-10-02] MEDS ORDERED: SODIUM CHLORIDE 0.9% 1000ML 1,000 ML IV STA (22:46)
[2017-10-02 23:19] LABS: BASO % 0.4 %; BASO ABS # 0.04 K/uL (0-0.2); EOS % 1.1 %; EOS ABS # 0.12 K/uL (0-0.5); HEMOGLOBIN 10.1 g/dL (12.0-16.0); IG# 0.03 K/uL (0.00-0.02); LYMPH % 13.9 %; LYMPH ABS # 1.59 K/uL (1.2-3.4); MEAN CELL VOLUME 96.5 fL (80-100); MEAN CORPUSCULAR HEMOGLOBIN 29.5 pg (25-34); MEAN CORPUSCULAR HGB CONC 30.6 g/dl (32-36); MEAN PLATELET VOLUME 9.6 fL (7.4-10.4); MONO % 10.3 %; MONO ABS # 1.18 K/uL (0.11-0.59); NEUT ABS # 8.45 K/uL (1.4-6.5); PLATELET COUNT 320 K/uL (130-400); RED CELL DISTRIBUTION WIDTH CV 18.5 % (11.5-14.5); RED CELL DISTRIBUTION WIDTH SD 65.2 fL (36.4-46.3); WHITE BLOOD COUNT 11.41 K/uL (4.8-10.8)
[2017-10-02 23:29] LABS: PTT PATIENT 24.9 SECONDS (21.0-31.0)
[2017-10-02 23:36] LABS: ALBUMIN 3.3 gm/dl (3.4-5.0); CALCIUM 8.4 mg/dl (8.5-10.1); CREATININE 1.07 mg/dl (0.60-1.20)
[2017-10-02 23:39] LABS: TOTAL PROTEIN 7.1 gm/dl (6.4-8.2)
[2017-10-03] VITALS (7 sets, daily range): BP systolic 94–146; BP diastolic 51–84; PULSE 72–85; TEMP 36.3–37.1; O2SAT 92–100; Ht 154.9 cm; Wt 79.2 kg
--- NOTE | 2017-10-03 00:13 | EMERGENCY ROOM VISIT NOTE ---
ED Visit Note First contact with patient: 22:34 I have seen and examined this patient with Josephine Strickland and generally agree with the treatment plan as discussed. Problem List Medical Problems: (1) Anxiety Status: Chronic (2) Carotid stenosis Status: Chronic (3) CREST syndrome Status: Chronic (4) CVA (cerebral infarction) Permanent Comment: 2014 in perioperative setting Status: Chronic (5) DJD (degenerative joint disease), lumbar Status: Chronic (6) DM type 2 (diabetes mellitus, type 2) Status: Chronic (7) Esophagitis Status: Chronic (8) Gastroparesis Status: Chronic (9) Hyperlipidemia Status: Chronic (10) Hypothyroidism Status: Chronic (11) Iron deficiency anemia Status: Chronic (12) Kidney stone Status: Resolved (13) Myalgia and myositis Status: Chronic (14) PVD (peripheral vascular disease) Status: Chronic Surgical Problems: (1) H/O foot surgery Status: Chronic (2) History of hysterectomy Status: Chronic (3) History of spinal fusion Status: Chronic (4) S/P appendectomy Status: Resolved Current/Historical Medications Scheduled Aspirin (Aspirin Ec), 81 MG PO QAM Atorvastatin (Lipitor), 80 MG PO QPM Cholecalciferol (Vitamin D3), 1 TAB PO QAM Clopidogrel (Plavix), 75 MG PO QAM Cyanocobalamin (Vitamin B12), 1 TAB PO QAM Donepezil Hydrochloride (Aricept), 1 TAB PO HS Esomeprazole Magnesium (Nexium), 40 MG PO QAM Ferrous Sulfate (Kp Ferrous Sulfate), 1 TAB PO QAM Insulin Glargine (Lantus), 40 UNITS SC QAM Levothyroxine Sodium (Levothyroxine Sodium), 1 TAB PO QAM Loratadine (Claritin), 10 MG PO QPM Losartan Potassium (Losartan Potassium), 1 TAB PO QAM Metformin Hcl (Glucophage), 1,000 MG PO BID Mirtazapine Soltab (Remeron Soltab), 30 MG PO QPM Multivitamin (Multivitamin), 1 TAB PO QAM Pregabalin (Lyrica), 1 CAP PO BID Ropinirole (Requip), 0.5 MG PO QPM Trazodone Hcl (Trazodone), 50 MG PO HS Venlafaxine Hcl (Venlafaxine Hcl Er), 1 TAB PO QAM Scheduled PRN Albuterol Sulfate (Proair Respiclick), 2 PUFFS INH DIRECTED PRN for Wheezing Bisacodyl (Dulcolax), 2 TAB PO QPM PRN for PRN Dicyclomine Hcl (Dicyclomine Hcl), 1 CAP PO BID PRN for abdominal cramping Docusate Calcium (Docusate Calcium), 1 TAB PO QPM PRN for PRN Oxycodone/Acetaminophen 5MG/325MG (Percocet 5MG/325MG), 1 TABLET PO Q4H PRN for Pain Allergies Coded Allergies: Clarithromycin (Verified Adverse Reaction, Unknown, FEEL WEIRD, 09/07/17) Vital Signs Date Time Temp Pulse Resp B/P (MAP) Pulse Ox O2 Delivery O2 Flow Rate FiO2 10/02/17 23:41 84/57 10/02/17 23:17 72 20 86/64 97 Nasal Cannula 4.0 10/02/17 23:16 73 80/52 77 81/59 10/02/17 22:42 36.6 78 95/55 10/02/17 22:35 72 Laboratory Results 10/02/17 23:05 Red Blood Count 3.42, Mean Corpuscular Volume 96.5, Mean Corpuscular Hemoglobin 29.5, Mean Corpuscular Hemoglobin Concent 30.6, Mean Platelet Volume 9.6, Neutrophils (%) (Auto) 74.0, Lymphocytes (%) (Auto) 13.9, Monocytes (%) (Auto) 10.3, Eosinophils (%) (Auto) 1.1, Basophils (%) (Auto) 0.4, Neutrophils # (Auto ) 8.45, Lymphocytes # (Auto) 1.59, Monocytes # (Auto) 1.18, Eosinophils # (Auto ) 0.12, Basophils # (Auto) 0.04 10/02/17 23:05 Test 10/02/17 23:05 White Blood Count 11.41 K/uL (4.8-10.8) Red Blood Count 3.42 M/uL (4.2-5.4) Hemoglobin 10.1 g/dL (12.0-16.0) Hematocrit 33.0 % (37-47) Mean Corpuscular Volume 96.5 fL (80-100) Mean Corpuscular Hemoglobin 29.5 pg (25-34) Mean Corpuscular Hemoglobin Concent 30.6 g/dl (32-36) Platelet Count 320 K/uL (130-400) Mean Platelet Volume 9.6 fL (7.4-10.4) Neutrophils (%) (Auto) 74.0 % Lymphocytes (%) (Auto) 13.9 % Monocytes (%) (Auto) 10.3 % Eosinophils (%) (Auto) 1.1 % Basophils (%) (Auto) 0.4 % Neutrophils # (Auto) 8.45 K/uL (1.4-6.5) Lymphocytes # (Auto) 1.59 K/uL (1.2-3.4) Monocytes # (Auto) 1.18 K/uL (0.11-0.59) Eosinophils # (Auto) 0.12 K/uL (0-0.5) Basophils # (Auto) 0.04 K/uL (0-0.2) RDW Standard Deviation 65.2 fL (36.4-46.3) RDW Coefficient of Variation 18.5 % (11.5-14.5) Immature Granulocyte % (Auto) 0.3 % Immature Granulocyte # (Auto) 0.03 K/uL (0.00-0.02) Prothrombin Time 10.7 SECONDS (9.0-12.0) Prothromb Time International Ratio 1.0 (0.9-1.1) Activated Partial Thromboplast Time 24.9 SECONDS (21.0-31.0) Partial Thromboplastin Ratio 1.0 Anion Gap 7.0 mmol/L (3-11) Est Creatinine Clear Calc Drug Dose 53.3 ml/min Estimated GFR () 64.4 Estimated GFR (Non- 55.6 BUN/Creatinine Ratio 9.8 (10-20) Calcium Level 8.4 mg/dl (8.5-10.1) Total Bilirubin 0.3 mg/dl (0.2-1) Aspartate Amino Transf (AST/SGOT) 24 U/L (15-37) Alanine Aminotransferase (ALT/SGPT) 31 U/L (12-78) Alkaline Phosphatase 127 U/L (45-117) Total Protein 7.1 gm/dl (6.4-8.2) Albumin 3.3 gm/dl (3.4-5.0) Globulin 3.8 gm/dl (2.5-4.0) Albumin/Globulin Ratio 0.9 (0.9-2) Medications Administered Medications (Trade) Dose Ordered Sig/Julian Route Start Time Stop Time Status Last Admin Dose Admin Sodium Chloride 1,000 ml @ 999 mls/hr Q1H1M STAT IV 10/02/17 22:46 10/02/17 23:46 DC 10/02/17 22:46 999 MLS/HR Departure Information Referrals Oseas Macdonald III, M.D. (PCP) Patient Instructions [facility]
[2017-10-03] MEDS ORDERED: LEVO88TA3 PO (00:22)
--- NOTE | 2017-10-03 00:24 | EMERGENCY ROOM VISIT NOTE ---
History First contact with patient: 22:34 Chief Complaint: FALL Stated Complaint: FALL, NOSE INJURY & LACERATION History of Present Illness The patient is a 62 year old female who presents to the Emergency Room via EMS for evaluation after a fall. The patient states that she was in her bathroom tonight and tripped over a throw rug, falling and striking the right side of her face on the trash can. She states that the fall was mechanical in nature and not associated with lightheadedness or dizziness. However, the patient's son who is present states that the patient told him she became dizzy after standing up from the toilet and then tripped and fell. When prompted, she does admit that she has been slightly dizzy over the past 2 days. She reports no pain at this time. She had a recent left shoulder surgery and the son does report that when he found her, she had landed onto her left shoulder and had been complaining of some left shoulder pain. The patient is on Plavix for a previous stroke. She is a diabetic. She denies any recent illness, fevers, cough, chest pain or shortness of breath. Review of Systems A complete 10 point review of systems was reviewed with the patient with pertinent positives and negatives as per history of present illness. All else were negative. Past Medical/Surgical History Medical Problems: (1) Anxiety (2) Carotid stenosis (3) CREST syndrome (4) CVA (cerebral infarction) (5) DJD (degenerative joint disease), lumbar (6) DM type 2 (diabetes mellitus, type 2) (7) Esophagitis (8) Fall (9) Gastroparesis (10) Generalized weakness (11) Head injury due to trauma (12) Hyperlipidemia (13) Hypothyroidism (14) Iron deficiency anemia (15) Kidney stone (16) Myalgia and myositis (17) PVD (peripheral vascular disease) Surgical Problems: (1) H/O foot surgery (2) History of hysterectomy (3) History of spinal fusion (4) S/P appendectomy Family History Diabetes mellitus MOTHER FH: cancer FATHER (lung CA) MOTHER (breast and uterine CA) Social History Smoking Status: Never Smoker Alcohol Use: occasionally Drug Use: none Marital Status: single Housing Status: lives with family Occupation Status: unemployed Current/Historical Medications Scheduled Atorvastatin (Lipitor), 80 MG PO QPM Clopidogrel (Plavix), 75 MG PO QAM Cyanocobalamin (Vitamin B12), 1 TAB PO QAM Donepezil Hydrochloride (Aricept), 1 TAB PO HS Esomeprazole Magnesium (Nexium), 40 MG PO QAM Ferrous Sulfate (Ferrous Sulfate), 325 MG PO QAM Insulin Glargine (Basaglar Kwikpen), 40 UNITS SQ QAM Levothyroxine Sodium (Levothyroxine Sodium), 1 TAB PO DAILY Loratadine (Claritin), 10 MG PO QPM Losartan Potassium (Losartan Potassium), 1 TAB PO QAM Metformin Hcl (Glucophage), 1,000 MG PO BID Mirtazapine Soltab (Remeron Soltab), 30 MG PO QPM Multivitamin (Multivitamin), 1 TAB PO QAM Pregabalin (Lyrica), 1 CAP PO BID Ropinirole (Requip), 0.5 MG PO QPM Trazodone Hcl (Trazodone), 50 MG PO HS Venlafaxine Hcl (Venlafaxine Hcl Er), 1 TAB PO QAM Scheduled PRN Dicyclomine Hcl (Dicyclomine Hcl), 10 MG PO BID PRN for abdominal cramping Physical Exam Vital Signs Date Time Temp Pulse Resp B/P (MAP) Pulse Ox O2 Delivery O2 Flow Rate FiO2 10/03/17 02:54 85 103/48 86 Nasal Cannula 4.0 10/03/17 02:10 86 10/03/17 02:09 96 Nasal Cannula 4.0 10/03/17 02:08 86 20 90/73 97 Nasal Cannula 4.0 10/03/17 01:32 82 92/74 10/03/17 01:27 129/73 10/03/17 01:25 86 21 86 10/03/17 01:21 83/71 10/03/17 01:20 84 15 100 10/03/17 01:17 97/57 10/03/17 01:15 89 17 100 10/03/17 01:10 89 16 93 10/03/17 01:06 63/47 10/03/17 01:05 92 20 69/47 97 10/03/17 01:03 73/45 10/03/17 01:02 10/03/17 01:00 83 15 100 10/03/17 00:22 76 16 84/45 100 Nasal Cannula 4.0 10/02/17 23:41 84/57 10/02/17 23:17 72 20 86/64 97 Nasal Cannula 4.0 10/02/17 23:16 73 80/52 77 81/59 10/02/17 22:42 36.6 78 95/55 10/02/17 22:35 72 Physical Exam VITALS: Vitals are noted on the nurse's note and reviewed by myself. Vital signs stable. GENERAL: This is a 62-year-old female, in no acute distress, nondiaphoretic, well-developed well-nourished. SKIN: There is a 6 cm laceration extending from between the brows down the right side of the nose and into the right axillary region. There is constant oozing bleeding. There is mild periorbital ecchymosis bilaterally. HEAD: Laceration as described above. Otherwise normocephalic, atraumatic. EARS: External auditory canals clear, tympanic membranes pearly don without erythema or effusion bilaterally. EYES: Pupils equal round and reactive to light and accommodation. Extraocular movements intact. MOUTH: Mucous membranes moist. NECK: Supple without nuchal rigidity. Cervical spine is nontender. HEART: Regular rate and rhythm without murmurs gallops or rubs. LUNGS: Clear to auscultation bilaterally without wheezes, rales or rhonchi. MUSCULOSKELETAL: No tenderness to palpation. Full range of motion throughout. NEURO: Patient was alert and oriented to person place and time. Speech is slow but clear. No focal neuro deficits. Medical Decision & Procedures ER Provider Diagnostic Interpretation: CHEST 1 VIEW: No acute cardiopulmonary abnormalities. LEFT SHOULDER: No acute fracture or dislocation. Per statrad interpretation: CT HEAD: Comparison is made to prior CT head on 09/14/2016. No acute intracranial abnormality identified. Soft tissue injury in the right nasal soft tissues. No acute fracture identified. Stable encephalomalacia in the left MCA distribution. Stable mild cerebral volume loss. Atherosclerotic calcifications in the intracranial vasculature. CT FACIAL: Soft tissue hematoma and laceration with small amount of subcutaneous emphysema to the right nasal soft tissues. No definite acute fracture identified. Atherosclerotic calcifications in the intracranial vasculature. CT C SPINE: No acute traumatic abnormality identified. Fusion changes of the cervical spine from C4-C7. Paraseptal emphysematous changes at the lung apices. Radiologist: Kambrie Mele, M.D. CTA CHEST: No PE. No aortic dissection. 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 Correlate for symptoms of subclavian steal. Bronchial wall thickening suggesting bronchitis. Mild emphysema. Coronary atherosclerosis. Radiologist: Chiki Miranda M.D. Laboratory Results 10/02/17 23:05 Red Blood Count 3.42, Mean Corpuscular Volume 96.5, Mean Corpuscular Hemoglobin 29.5, Mean Corpuscular Hemoglobin Concent 30.6, Mean Platelet Volume 9.6, Neutrophils (%) (Auto) 74.0, Lymphocytes (%) (Auto) 13.9, Monocytes (%) (Auto) 10.3, Eosinophils (%) (Auto) 1.1, Basophils (%) (Auto) 0.4, Neutrophils # (Auto ) 8.45, Lymphocytes # (Auto) 1.59, Monocytes # (Auto) 1.18, Eosinophils # (Auto ) 0.12, Basophils # (Auto) 0.04 10/02/17 23:05 Test 10/02/17 23:05 10/03/17 01:30 White Blood Count 11.41 K/uL (4.8-10.8) Red Blood Count 3.42 M/uL (4.2-5.4) Hemoglobin 10.1 g/dL (12.0-16.0) Hematocrit 33.0 % (37-47) Mean Corpuscular Volume 96.5 fL (80-100) Mean Corpuscular Hemoglobin 29.5 pg (25-34) Mean Corpuscular Hemoglobin Concent 30.6 g/dl (32-36) Platelet Count 320 K/uL (130-400) Mean Platelet Volume 9.6 fL (7.4-10.4) Neutrophils (%) (Auto) 74.0 % Lymphocytes (%) (Auto) 13.9 % Monocytes (%) (Auto) 10.3 % Eosinophils (%) (Auto) 1.1 % Basophils (%) (Auto) 0.4 % Neutrophils # (Auto) 8.45 K/uL (1.4-6.5) Lymphocytes # (Auto) 1.59 K/uL (1.2-3.4) Monocytes # (Auto) 1.18 K/uL (0.11-0.59) Eosinophils # (Auto) 0.12 K/uL (0-0.5) Basophils # (Auto) 0.04 K/uL (0-0.2) RDW Standard Deviation 65.2 fL (36.4-46.3) RDW Coefficient of Variation 18.5 % (11.5-14.5) Immature Granulocyte % (Auto) 0.3 % Immature Granulocyte # (Auto) 0.03 K/uL (0.00-0.02) Prothrombin Time 10.7 SECONDS (9.0-12.0) Prothromb Time International Ratio 1.0 (0.9-1.1) Activated Partial Thromboplast Time 24.9 SECONDS (21.0-31.0) Partial Thromboplastin Ratio 1.0 Anion Gap 7.0 mmol/L (3-11) Est Creatinine Clear Calc Drug Dose 53.3 ml/min Estimated GFR () 64.4 Estimated GFR (Non- 55.6 BUN/Creatinine Ratio 9.8 (10-20) Calcium Level 8.4 mg/dl (8.5-10.1) Total Bilirubin 0.3 mg/dl (0.2-1) Aspartate Amino Transf (AST/SGOT) 24 U/L (15-37) Alanine Aminotransferase (ALT/SGPT) 31 U/L (12-78) Alkaline Phosphatase 127 U/L (45-117) Total Protein 7.1 gm/dl (6.4-8.2) Albumin 3.3 gm/dl (3.4-5.0) Globulin 3.8 gm/dl (2.5-4.0) Albumin/Globulin Ratio 0.9 (0.9-2) Urine Color YELLOW Urine Appearance CLEAR (CLEAR) Urine pH 5.0 (4.5-7.5) Urine Specific [place] 1.041 (1.000-1.030) Urine Protein NEG (NEG) Urine Glucose (UA) NEG (NEG) Urine Ketones NEG (NEG) Urine Occult Blood NEG (NEG) Urine Nitrite NEG (NEG) Urine Bilirubin NEG (NEG) Urine Urobilinogen NEG (NEG) Urine Leukocyte Esterase NEG (NEG) Medications Administered Medications (Trade) Dose Ordered Sig/Julian Route Start Time Stop Time Status Last Admin Dose Admin Sodium Chloride 1,000 ml @ 999 mls/hr Q1H1M STAT IV 10/02/17 22:46 10/02/17 23:46 DC 10/02/17 22:46 999 MLS/HR Albuterol/ Ipratropium (Duoneb) 3 ml NOW STAT INH 10/03/17 01:16 10/03/17 01:17 DC 10/03/17 01:16 3 ML Procedure Verbal consent was obtained to perform the procedure. Using sterile technique the wound was cleaned with Betadine. The area was sterilely draped. 5 ml of 1 % buffered lidocaine with epinephrine was used to anesthetize the facial laceration. Once the patient was anesthetized, the wound was copiously irrigated under pressure with sterile saline. The laceration was repaired using 13 simple interrupted 5-0 nylon sutures with the wound edges being well approximated. The patient tolerated the procedure well. Hemostasis was achieved. Medical Decision Differential diagnosis includes mechanical fall, orthostatic hypotension, infection, dehydration, among others. The patient is a 62-year-old female who presents today for evaluation of a fall. Patient did sustain injuries to the face. CT of the head, facial bones and C-spine were negative for acute fractures or intracranial bleeds. She did sustain a large laceration to the right side of the nose which was repaired as noted in the procedure section. Patient insisted that the fall was mechanical, however it was noted that she was persistently hypotensive on evaluation. This hypotension improved slightly although persisted despite 2 L of fluids. It was also noted that the patient arrived on 4 L of O2 via nasal cannula. The patient denies any shortness of breath or recent cough, and does not wear oxygen at home. We did attempt to remove the oxygen, however the patient's O2 saturations promptly dropped. She was given a DuoNeb with no improvement of symptoms. This prompted CT of the chest to rule out PE which was negative for PE or aortic dissection. Patient has mild leukocytosis but no evidence of a source of infection. Chest x-ray showed no evidence of pneumonia. Urinalysis was not suggestive of infection. Patient will require inpatient evaluation and treatment due to hypotension and hypoxia. The case was discussed with the [facility] hospitalist service who agreed to evaluate the patient for admission. The patient was independently evaluated by Dr. Kim, ED attending physician , who agreed with my assessment and treatment plan. Head Trauma GCS Score: 15 Medication Reconcilliation Current Medication List: was personally reviewed by pr Blood Pressure Screening Patient's blood pressure: Low blood pressure (will be followed by hospitalist) Impression Primary Impression: Hypotension Additional Impressions: Fall Closed head injury Facial laceration Hypoxia Departure Information Referrals Oseas Macdonald III, M.D. (PCP) Patient Instructions My [facility] Problem Qualifiers Primary Impression: Hypotension Hypotension type: unspecified hypotension type Qualified Codes: I95.9 - Hypotension, unspecified Additional Impressions: Fall Encounter type: initial encounter Qualified Codes: W19.XXXA - Unspecified fall, initial encounter Closed head injury Encounter type: initial encounter Qualified Codes: S09.90XA - Unspecified injury of head, initial encounter Facial laceration Encounter type: initial encounter Qualified Codes: S01.81XA - Laceration without foreign body of other part of head, initial encounter
[2017-10-03] MEDS ORDERED: FERR1TAB62 PO (00:25)
[2017-10-03] MEDS ORDERED: INSU100I23 SQ (00:25)
[2017-10-03] MEDS ORDERED: DICY10CA12 PO (00:25)
[2017-10-03] MEDS ORDERED: OPTIRAY 320 IV PRN (00:30)
[2017-10-03] MEDS ORDERED: LIDOCAINE/EPINEPHRINE 1% 20 ML VIAL INFIL ONE (00:30)
[2017-10-03] MEDS ORDERED: ALBUT/IPRATROP 3MG/0.5MG NEB 3 ML VIAL INH STA (01:16)
[2017-10-03] MEDS ORDERED: GLUCAGON FOR INJ 1 MG VIAL SQ PRN (04:00)
[2017-10-03] MEDS ORDERED: DEXTROSE 50% 50 ML SYR IV PRN (04:00)
[2017-10-03] MEDS ORDERED: GLUCOSE 40% GEL 15 GM TUBE PO PRN (04:00)
[2017-10-03] MEDS ORDERED: GLUCOSE 10 TABS/TUBE PO PRN (04:00)
--- NOTE | 2017-10-03 04:23 | History and Physical ---
History & Physical Date & Time of Service: Oct 03, 2017 at 04:23 Chief Complaint: Fall, Nose Injury & Laceration Primary Care Physician: Oseas Macdonald III, M.D. History of Present Illness Source: patient, other (emergency room medical staff) This is a 62 year old F who reports that she was at home and fell and hit her face at home before arriving to the ED. As per patient, she had just finished urinating and was getting up from the toilet seat and then felt lightheaded and hit her face. Patient has substantial bruising of the face. Bruises of both eyelids, s/p laceration repair in the ED or right nasal bridge with sutures, head has dressing. Patient had multiple scans performed in the ED and no acute intracranial bleed or fractures on preliminary reports Patient was endorsed to medical medicine hospitalist team for admission not because of the facial injuries but primarily because the patient's blood pressure was low to low normotensive despite IV fluids. When examined by hospitalist medicine patient's heart rate consistently in the 80s (EKG on admission with normal sinus rhythm 74 beats per minute). Patient's blood pressure cuff readings were 103/48 and then upon recycling was 120/100 and then later was 89/60. Despite these low blood pressure readings, patient did not report of further lightheadedness symptoms. Patient reports history of stroke in the past with residual right sided weakness and slurred speech. She did not think that she had developed any new impediments with her speech or with her motor strength since the recent head trauma. Past Medical/Surgical History Medical Problems: (1) Anemia (2) Anxiety (3) Carotid stenosis (4) CREST syndrome (5) CVA (cerebral infarction) (6) DJD (degenerative joint disease), lumbar (7) DM type 2 (diabetes mellitus, type 2) (8) Epistaxis (9) Esophagitis (10) Fall (11) Gastroparesis (12) Generalized weakness (13) Head injury due to trauma (14) Hyperlipidemia (15) Hypothyroidism (16) Iron deficiency anemia (17) Kidney stone (18) Myalgia and myositis (19) PVD (peripheral vascular disease) (20) SIRS (systemic inflammatory response syndrome) Surgical Problems: (1) H/O foot surgery (2) History of hysterectomy (3) History of spinal fusion (4) S/P appendectomy Family History Diabetes mellitus MOTHER FH: cancer FATHER (lung CA) MOTHER (breast and uterine CA) Social History Smoking Status: Never Smoker Drug Use: none Marital Status: single Housing status: lives alone Occupational Status: unemployed Immunizations History of Influenza Vaccine: N/A History of Tetanus Vaccine?: No History of Pneumococcal: Unknown History of Hepatitis B Vaccine: No Allergies Coded Allergies: Clarithromycin (Verified Adverse Reaction, Unknown, FEEL WEIRD, 10/03/17) Home Medications Scheduled Atorvastatin (Lipitor), 80 MG PO QPM Clopidogrel (Plavix), 75 MG PO QAM Cyanocobalamin (Vitamin B12), 1 TAB PO QAM Donepezil Hydrochloride (Aricept), 1 TAB PO HS Esomeprazole Magnesium (Nexium), 40 MG PO QAM Ferrous Sulfate (Ferrous Sulfate), 325 MG PO QAM Insulin Glargine (Basaglar Kwikpen), 40 UNITS SQ QAM Levothyroxine Sodium (Levothyroxine Sodium), 1 TAB PO DAILY Loratadine (Claritin), 10 MG PO QPM Losartan Potassium (Losartan Potassium), 1 TAB PO QAM Metformin Hcl (Glucophage), 1,000 MG PO BID Mirtazapine Soltab (Remeron Soltab), 30 MG PO QPM Multivitamin (Multivitamin), 1 TAB PO QAM Pregabalin (Lyrica), 1 CAP PO BID Ropinirole (Requip), 0.5 MG PO QPM Trazodone Hcl (Trazodone), 50 MG PO HS Venlafaxine Hcl (Venlafaxine Hcl Er), 1 TAB PO QAM Scheduled PRN Dicyclomine Hcl (Dicyclomine Hcl), 10 MG PO BID PRN for abdominal cramping Review of Systems Constitutional: No fever Eyes: No worsening of vision ENT: No hearing loss Respiratory: No shortness of breath Cardiovascular: No chest pain Abdomen: No pain Genitourinary - Female: No dysuria Neurologic: + weakness (baseline slurred speech and relative right sided weakness compared to left side), No numbness/tingling Psychiatric: No anxiety Hematologic / Lymphatic: + abnormal bleeding/bruising (from laceration of nose) Physical Exam Vital Signs Date Time Temp Pulse Resp B/P (MAP) Pulse Ox O2 Delivery O2 Flow Rate FiO2 10/03/17 02:54 85 103/48 86 Nasal Cannula 4.0 10/03/17 02:10 86 10/03/17 02:09 96 Nasal Cannula 4.0 10/03/17 02:08 86 20 90/73 97 Nasal Cannula 4.0 10/03/17 01:32 82 92/74 10/03/17 01:27 129/73 10/03/17 01:25 86 21 86 10/03/17 01:21 83/71 10/03/17 01:20 84 15 100 10/03/17 01:17 97/57 10/03/17 01:15 89 17 100 10/03/17 01:10 89 16 93 10/03/17 01:06 63/47 10/03/17 01:05 92 20 69/47 97 10/03/17 01:03 73/45 10/03/17 01:02 10/03/17 01:00 83 15 100 10/03/17 00:22 76 16 84/45 100 Nasal Cannula 4.0 10/02/17 23:41 84/57 10/02/17 23:17 72 20 86/64 97 Nasal Cannula 4.0 10/02/17 23:16 73 80/52 77 81/59 10/02/17 22:42 36.6 78 95/55 10/02/17 22:35 72 General Appearance: no apparent distress Head: + pertinent finding (dressing over head, sutures of right nasal bridge) Eyes: EOMI, sclerae normal, + pertinent finding (brusing around orbits of both eyes, eyelid bruising) ENT: hearing grossly normal, pharynx normal Neck: supple, no JVD, trachea midline Respiratory/Chest: chest non-tender, lungs clear, normal breath sounds, no respiratory distress, no accessory muscle use Cardiovascular: regular rate, rhythm, no edema, no JVD, normal peripheral pulses Abdomen/GI: normal bowel sounds, non tender, soft, no organomegaly Extremities/Musculoskelatal: no calf tenderness, no pedal edema, normal range of motion, + pertinent finding (no gross deficits of right side despite pateint report that this is her weaker side) Neurologic/Psych: high man II-XII nml as tested, alert, + pertinent finding (some slurred or slow spech) Skin: normal color, warm/dry Diagnostics Laboratory Results Results Past 24 Hours Test 10/02/17 23:05 10/03/17 01:30 Range/Units White Blood Count 11.41 4.8-10.8 K/uL Red Blood Count 3.42 4.2-5.4 M/uL Hemoglobin 10.1 12.0-16.0 g/dL Hematocrit 33.0 37-47 % Mean Corpuscular Volume 96.5 80-100 fL Mean Corpuscular Hemoglobin 29.5 25-34 pg Mean Corpuscular Hemoglobin Concent 30.6 32-36 g/dl Platelet Count 320 130-400 K/uL Mean Platelet Volume 9.6 7.4-10.4 fL Neutrophils (%) (Auto) 74.0 % Lymphocytes (%) (Auto) 13.9 % Monocytes (%) (Auto) 10.3 % Eosinophils (%) (Auto) 1.1 % Basophils (%) (Auto) 0.4 % Neutrophils # (Auto) 8.45 1.4-6.5 K/uL Lymphocytes # (Auto) 1.59 1.2-3.4 K/uL Monocytes # (Auto) 1.18 0.11-0.59 K/uL Eosinophils # (Auto) 0.12 0-0.5 K/uL Basophils # (Auto) 0.04 0-0.2 K/uL RDW Standard Deviation 65.2 36.4-46.3 fL RDW Coefficient of Variation 18.5 11.5-14.5 % Immature Granulocyte % (Auto) 0.3 % Immature Granulocyte # (Auto) 0.03 0.00-0.02 K/uL Prothrombin Time 10.7 9.0-12.0 SECONDS Prothromb Time International Ratio 1.0 0.9-1.1 Activated Partial Thromboplast Time 24.9 21.0-31.0 SECONDS Partial Thromboplastin Ratio 1.0 Sodium Level 140 136-145 mmol/L Potassium Level 4.0 3.5-5.1 mmol/L Chloride Level 103 98-107 mmol/L Carbon Dioxide Level 30 21-32 mmol/L Anion Gap 7.0 3-11 mmol/L Blood Urea Nitrogen 10 7-18 mg/dl Creatinine 1.07 0.60-1.20 mg/dl Est Creatinine Clear Calc Drug Dose 53.3 ml/min Estimated GFR () 64.4 Estimated GFR (Non- 55.6 BUN/Creatinine Ratio 9.8 10-20 Random Glucose 191 70-99 mg/dl Calcium Level 8.4 8.5-10.1 mg/dl Total Bilirubin 0.3 0.2-1 mg/dl Aspartate Amino Transf (AST/SGOT) 24 15-37 U/L Alanine Aminotransferase (ALT/SGPT) 31 12-78 U/L Alkaline Phosphatase 127 45-117 U/L Total Protein 7.1 6.4-8.2 gm/dl Albumin 3.3 3.4-5.0 gm/dl Globulin 3.8 2.5-4.0 gm/dl Albumin/Globulin Ratio 0.9 0.9-2 Urine Color YELLOW Urine Appearance CLEAR CLEAR Urine pH 5.0 4.5-7.5 Urine Specific [place] 1.041 1.000-1.030 Urine Protein NEG NEG Urine Glucose (UA) NEG NEG Urine Ketones NEG NEG Urine Occult Blood NEG NEG Urine Nitrite NEG NEG Urine Bilirubin NEG NEG Urine Urobilinogen NEG NEG Urine Leukocyte Esterase NEG NEG Impression Assessment and Plan This is a 62 year old F with head trauma after loss of consciousness after what could have been a vasovagal episode at home given that the lightheaded symptoms occurred after getting up from toilet when she had finished urinating. Review of home medications also shows multiple home medications that could cause low blood pressure including antihypertensives -hold Losartan 25 mg daily, hold Lyrica, hold Trazodone -restart these medications if blood pressure generally above 120 systolic -patent has other medications for anxiety/depression, continue Remeron and Effexor -continue donepezil, ropinirole Endocrine disorders or endocrine causes of hypotension / lightheadedness History of Hypothyroidism on Levothyroxine, Check TSH and T4, and continue home dose 88 mcg Levothyroxine unless labs suggests dose adjustment Check 8 AM cortisol level to investigate whether patient has adrenal insufficiency Patient has history of diabetes and is on metformin and insulin; hold metformin , hold glargine for now to avoid hypoglycemia, check fingerstick glucose and give sliding scale insulin coverage for now, check HbA1c, patient has large dose insulin requirements at home as glargine 45 units so if patient's glucose becomes elevated then restart glargine Ambulatory dysfunction Patient reports that she uses walker when outside of the home but not at home obtain PT/OT evaluations History of previous stroke / Recent Head Trauma History of previous stroke with residual slurred/slow speech and relative right sided weakness compared to left side Recent head trauma s/p laceration repair in the ED or right nasal bridge with sutures Preliminary reports of head and neck cans show stable encephalomalacia in the left MCA distribution; soft tissue injury in right nasal soft tissues monitor for altered mental status if patient develops this as subsequent complication from head trauma Monitor on telemetry for any arrhythmias Leukocytosis on admission has been afebrile UA negative if patient develops fever, then send blood culture and consider starting empiric antibionts DVT ppx: SCDs Full Code Resuscitation Status VTE Prophylaxis Will order VTE Prophylaxis: Yes
[2017-10-03] MEDS: SODIUM CHLORIDE 0.9% 1000ML 1,000 ML IV SCH ×2 (06:06→17:15)
--- NOTE | 2017-10-03 06:27 | DIAGNOSTIC IMAGING REPORT ---
L SHOULDER MIN 2 VIEWS ROUTINE CLINICAL HISTORY: fall, left shoulder pain, recent surgery pain. Trauma. COMPARISON: None. DISCUSSION: Mild degenerative changes of glenohumeral as well as acromioclavicular joint. Postoperative changes consistent with cervical fusion. No acute bony abnormality. There is no evidence for soft tissue swelling. IMPRESSION: Mild degenerative and postoperative change is noted. No acute process. The above report was generated using voice recognition software. It may contain grammatical, syntax or spelling errors. Electronically signed by: Chris Toth M.D. 10/03/2017 6:26 AM Dictated Date/Time: 10/03/2017 6:23 AM
[2017-10-03] MEDS: LEVOTHYROXINE 88 MCG TAB PO SCH (06:28)
--- NOTE | 2017-10-03 06:29 | DIAGNOSTIC IMAGING REPORT ---
FACIAL BONES-MXILLOFAC WITHOUT CT DOSE: 945.94 mGy.cm HISTORY: Trauma. Pain. fall, head injury, facial injury TECHNIQUE: Multiaxial CT images of the maxillofacial region were performed and reformatted in the coronal plane without the use of contrast. A dose lowering technique was utilized adhering to the principles of ALARA. COMPARISON: None. FINDINGS: The visualized cervical spine, skull base, pterygoid plates, nasal bones, lamina papyracea, orbital floors, mandible, and zygomatic arches are intact. No fractures. The orbits are unremarkable. Moderate right periorbital and perinasal or soft tissue edema. Soft tissue disruption. Major sinuses are considered clear. IMPRESSION: Soft tissue disruption. No acute bony abnormality. The above report was generated using voice recognition software. It may contain grammatical, syntax or spelling errors. Electronically signed by: Chris Toth M.D. 10/03/2017 6:28 AM Dictated Date/Time: 10/03/2017 6:26 AM
--- NOTE | 2017-10-03 06:36 | DIAGNOSTIC IMAGING REPORT ---
CHEST ONE VIEW PORTABLE CLINICAL HISTORY: fall trauma. Pain. COMPARISON STUDY: 09/14/2016 FINDINGS: The bones soft tissues and hemidiaphragms are normal. The cardiomediastinal silhouette is normal. The lungs are clear. The pulmonary vasculature is normal. IMPRESSION: Negative chest. The above report was generated using voice recognition software. It may contain grammatical, syntax or spelling errors. Electronically signed by: Chris Toth M.D. 10/03/2017 6:34 AM Dictated Date/Time: 10/03/2017 6:34 AM
--- NOTE | 2017-10-03 06:50 | DIAGNOSTIC IMAGING REPORT ---
CERVICAL SPINE W/O CT DOSE: HISTORY: Trauma fall, head injury, facial injury TECHNIQUE: Multiaxial CT images of the cervical spine were performed and reformatted in the sagittal and coronal plane without the use of contrast. A dose lowering technique was utilized adhering to the principles of ALARA. COMPARISON: None. FINDINGS: No fractures. No subluxation. Prevertebral soft tissues and the C1-C2 interval are intact. No pneumothorax. Findings of an anterior fusion and corpectomy from C4 through C7. IMPRESSION: Postoperative changes from C4 through C7. No acute posttraumatic abnormality. The above report was generated using voice recognition software. It may contain grammatical, syntax or spelling errors. Electronically signed by: Chris Toth M.D. 10/03/2017 6:49 AM Dictated Date/Time: 10/03/2017 6:47 AM
[2017-10-03] MEDS: INSULIN ASPART 100 UNITS/ML 3 ML PEN SC SCH ×4 (07:00→20:49)
--- NOTE | 2017-10-03 07:05 | DIAGNOSTIC IMAGING REPORT ---
HEAD WITHOUT CONTRAST (CT) CLINICAL HISTORY: 62 years-old Female presenting with fall, head injury, facial injury. TECHNIQUE: Multidetector CT imaging of the head was performed without the use of intravenous contrast. IV contrast: None. A dose lowering technique was used consistent with the principles of ALARA (as low as reasonably achievable). COMPARISON: 09/14/2016. CT DOSE (mGy.cm): The estimated cumulative dose is 945.94. 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 Internal fixation of the mandibular symphysis. Ex vacuo dilatation of the left lateral ventricle secondary to the chronic left middle cerebral artery territory distribution infarct involving the left frontal, temporal, and insular cortices. No mass effect or midline shift. No hemorrhage or acute territorial infarct. No extra-axial fluid collection. Paranasal sinuses and mastoid air cells clear. Calvarium intact. Infiltration and swelling of the right periorbital/nasal region. Few foci of suspected subcutaneous gas noted likely indicating laceration. IMPRESSION: 1. No acute intracranial abnormality. 2. Old left MCA territory infarct. 3. Right periorbital/nasal region contusion and laceration. No subjacent osseous injury. Electronically signed by: Pedro Baumann M.D. 10/03/2017 7:04 AM Dictated Date/Time: 10/03/2017 6:58 AM
--- NOTE | 2017-10-03 07:17 | DIAGNOSTIC IMAGING REPORT ---
(CHEST FOR PE) ANGIO WITH CLINICAL HISTORY: 62 years-old Female presenting with ^hypoxia, dizzy. TECHNIQUE: Multidetector CT angiography of the chest was performed after administration of intravenous contrast. 3-D volumetric and/or maximum intensity projection (MIP) images were subsequently reconstructed for review. IV contrast: 92 mL of Optiray 320. A dose lowering technique was used consistent with the principles of ALARA (as low as reasonably achievable). COMPARISON: Chest x-ray from the previous day. CT DOSE (mGy.cm): The estimated cumulative dose is 282.31 mGy.cm. FINDINGS: Signal Worker topogram: Anterior cervical discectomy and fusion. Internal fixation of the mandibular symphysis. Pulmonary vasculature: The study is adequate for assessment of the pulmonary vascular tree. No filling defect within the pulmonary arteries to suggest embolus. Main pulmonary artery is not enlarged. No flattening of the interventricular septum. No intracardiac filling defect. No reflux of contrast into the hepatic veins. Remaining chest: On soft tissue windows, normal thyroid and thoracic inlet. No axillary, supraclavicular, hilar, or mediastinal lymphadenopathy. Atherosclerosis of the aorta. 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 Remainder of the visualized portion of the left subclavian artery patent. Normal heart size. Coronary artery calcification. No pericardial or pleural effusion. Upper abdomen normal. On lung windows, minimal dependent changes likely atelectasis. Trace apical emphysema. No other focal nodule or infiltrate. Bronchial wall thickening. On bone windows, partially visualized cervical fusion hardware. Old left rib fractures noted. IMPRESSION: 1. No evidence of pulmonary embolus. No acute intrathoracic pathology. 2. Emphysema bronchial wall thickening likely indicates smoking related lung injury. 3. 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 Electronically signed by: Pedro Baumann M.D. 10/03/2017 7:16 AM Dictated Date/Time: 10/03/2017 6:59 AM
[2017-10-03] MEDS: CYANOCOBALAMIN 500 MCG TAB (VIT B-12) PO SCH (08:14)
[2017-10-03] MEDS: VENLAFAXINE HCL XR 75 MG CAPXR PO SCH (08:14)
[2017-10-03] MEDS: FERROUS SULFATE 325 MG TAB PO SCH (08:14)
[2017-10-03] MEDS: PANTOprazole SOD 40 MG TAB PO SCH (08:15)
[2017-10-03 08:30] LABS: BASO % 0.3 %; BASO ABS # 0.03 K/uL (0-0.2); EOS % 2.1 %; EOS ABS # 0.19 K/uL (0-0.5); HEMATOCRIT 28.8 % (37-47); HEMOGLOBIN 9.1 g/dL (12.0-16.0); IG# 0.04 K/uL (0.00-0.02); LYMPH % 30.3 %; LYMPH ABS # 2.77 K/uL (1.2-3.4); MEAN CELL VOLUME 95.7 fL (80-100); MEAN CORPUSCULAR HEMOGLOBIN 30.2 pg (25-34); MEAN CORPUSCULAR HGB CONC 31.6 g/dl (32-36); MEAN PLATELET VOLUME 8.9 fL (7.4-10.4); MONO % 9.4 %; MONO ABS # 0.86 K/uL (0.11-0.59); NEUT % 57.5 %; NEUT ABS # 5.24 K/uL (1.4-6.5); PLATELET COUNT 299 K/uL (130-400); RED CELL DISTRIBUTION WIDTH CV 18.8 % (11.5-14.5); RED CELL DISTRIBUTION WIDTH SD 66.1 fL (36.4-46.3); WHITE BLOOD COUNT 9.13 K/uL (4.8-10.8)
[2017-10-03 09:05] LABS: HEMOGLOBIN A1C 5.9 % (4.5-5.6)
[2017-10-03] MEDS: TRAMADOL HCL 50 MG TAB PO PRN (10:02)
[2017-10-03] MEDS: ACETAMINOPHEN 325 MG TAB PO PRN ×2 (11:57→15:26)
--- NOTE | 2017-10-03 18:58 | Progress Note ---
Medicine Progress Note Date & Time of Visit: Oct 03, 2017 at 18:58. Subjective Patient doing ok, has facial pain from fall and a SALSE but otherwise no complaints. No overnight events noted. Tolerating PO. No events on tele monitor. Was seen earlier in the day prior to PT/OT evals. Spoke with ROBIN Fortune on the phone to update. Objective Last 8 Hrs Date Time Temp Pulse Resp B/P (MAP) Pulse Ox O2 Delivery O2 Flow Rate FiO2 10/03/17 16:00 Nasal Cannula 3.0 10/03/17 15:02 36.6 72 20 127/58 (81) 100 Nasal Cannula 4.0 10/03/17 12:38 84 139/76 (97) 10/03/17 12:37 85 146/70 (95) 10/03/17 12:37 82 137/84 (101) 10/03/17 12:29 36.7 79 18 94/51 (65) 92 10/03/17 12:00 Nasal Cannula 3.0 Physical Exam: GENERAL: Patient is in no acute distress. HEENT: No acute trauma, normocephalic, mucous membranes moist, no nasal congestion, no scleral icterus. B/L periorbital ecchymosis, right nasal wall sutured lac NECK: No stridor, trachea is midline. LUNGS: Clear to auscultation bilaterally, no wheeze, no rhonchi, breath sounds equal. HEART: Without murmurs gallops or rubs, regular rate and rhythm. ABDOMEN: Soft, nontender, bowel sounds positive EXTREMITIES: No cyanosis or edema, moving all joints without pain or difficulty , has residual right sided relative weakness NEUROLOGIC: Oriented x 3, no acute motor or sensory deficits, no focal weakness. SKIN: No rash, no jaundice, no diaphoresis. Laboratory Results: Last 24 Hours Test 10/02/17 23:05 10/03/17 01:30 10/03/17 06:47 10/03/17 08:09 White Blood Count 11.41 K/uL 9.13 K/uL Red Blood Count 3.42 M/uL 3.01 M/uL Hemoglobin 10.1 g/dL 9.1 g/dL Hematocrit 33.0 % 28.8 % Mean Corpuscular Volume 96.5 fL 95.7 fL Mean Corpuscular Hemoglobin 29.5 pg 30.2 pg Mean Corpuscular Hemoglobin Concent 30.6 g/dl 31.6 g/dl Platelet Count 320 K/uL 299 K/uL Mean Platelet Volume 9.6 fL 8.9 fL Neutrophils (%) (Auto) 74.0 % 57.5 % Lymphocytes (%) (Auto) 13.9 % 30.3 % Monocytes (%) (Auto) 10.3 % 9.4 % Eosinophils (%) (Auto) 1.1 % 2.1 % Basophils (%) (Auto) 0.4 % 0.3 % Neutrophils # (Auto) 8.45 K/uL 5.24 K/uL Lymphocytes # (Auto) 1.59 K/uL 2.77 K/uL Monocytes # (Auto) 1.18 K/uL 0.86 K/uL Eosinophils # (Auto) 0.12 K/uL 0.19 K/uL Basophils # (Auto) 0.04 K/uL 0.03 K/uL RDW Standard Deviation 65.2 fL 66.1 fL RDW Coefficient of Variation 18.5 % 18.8 % Immature Granulocyte % (Auto) 0.3 % 0.4 % Immature Granulocyte # (Auto) 0.03 K/uL 0.04 K/uL Prothrombin Time 10.7 SECONDS Prothromb Time International Ratio 1.0 Activated Partial Thromboplast Time 24.9 SECONDS Partial Thromboplastin Ratio 1.0 Sodium Level 140 mmol/L Potassium Level 4.0 mmol/L Chloride Level 103 mmol/L Carbon Dioxide Level 30 mmol/L Anion Gap 7.0 mmol/L Blood Urea Nitrogen 10 mg/dl Creatinine 1.07 mg/dl Est Creatinine Clear Calc Drug Dose 53.3 ml/min Estimated GFR () 64.4 Estimated GFR (Non- 55.6 BUN/Creatinine Ratio 9.8 Random Glucose 191 mg/dl Calcium Level 8.4 mg/dl Total Bilirubin 0.3 mg/dl Aspartate Amino Transf (AST/SGOT) 24 U/L Alanine Aminotransferase (ALT/SGPT) 31 U/L Alkaline Phosphatase 127 U/L Total Protein 7.1 gm/dl Albumin 3.3 gm/dl Globulin 3.8 gm/dl Albumin/Globulin Ratio 0.9 Urine Color YELLOW Urine Appearance CLEAR Urine pH 5.0 Urine Specific Ronda 1.041 Urine Protein NEG Urine Glucose (UA) NEG Urine Ketones NEG Urine Occult Blood NEG Urine Nitrite NEG Urine Bilirubin NEG Urine Urobilinogen NEG Urine Leukocyte Esterase NEG Bedside Glucose 89 mg/dl Estimated Average Glucose 123 mg/dl Hemoglobin A1c 5.9 % Thyroid Stimulating Hormone (TSH) 0.909 uIu/ml Thyroxine (T4) 7.8 mcg/dl Cortisol AM Sample 13.39 mcg/dl Test 10/03/17 11:31 10/03/17 16:09 Bedside Glucose 102 mg/dl 131 mg/dl Assessment & Plan HYPOTENSION: -orthostatics negative -Losartan and Lyrica and Trazodone held for low BP -restart these medications if blood pressure generally above 120 systolic -continue IV fluids and encourage PO -check TTE FALL: of unknown circumstances -orthostatics negative -patient reported to family she was lightheaded when the fall occurred -no evidence for infection -was hypotensive on admission, BP meds held -laceration across bridge of nose sutured DM TYPE II: -hold metformin -also held glargine for now to avoid hypoglycemia -on sliding scale insulin coverage for now -HbA1c: 5.9% -has large dose insulin requirements at home as glargine 45 units so if patient' s glucose becomes elevated then restart glargine HYPOTHYROIDISM: -continue levothyroxine ANXIETY/DEPRESSION: -patent has other medications for anxiety/depression, continue Remeron and Effexor -continue donepezil, ropinirole -trazodone held AMBULATORY DYSFUNCTION: -PT/OT consulted -will likely need rehab upon discharge -uses walker when outside of the home but not at home PRIOR HX OF CVA: -previous stroke with residual slurred/slow speech and relative right sided weakness compared to left side -CT Head: show stable encephalomalacia in the left MCA distribution; soft tissue injury in right nasal soft tissues LEUKOCYTOSIS: resolved -likely reactive from the fall -has been afebrile -UA negative Current Inpatient Medications: Current Inpatient Medications Medications (Trade) Dose Ordered Sig/Julian Route Start Time Stop Time Status Last Admin Dose Admin Ioversol (Optiray 320) 100 ml UD PRN IV 10/03/17 00:30 10/07/17 00:29 Sodium Chloride 1,000 ml @ 75 mls/hr [id number] IV 10/03/17 06:00 11/02/17 05:59 10/03/17 17:15 75 MLS/HR Atorvastatin Calcium (Lipitor Tab) 80 mg QPM PO 10/03/17 21:00 11/02/17 20:59 Donepezil HCl (Aricept Tab) 10 mg HS PO 10/03/17 21:00 11/02/17 20:59 Levothyroxine Sodium (Synthroid Tab) 88 mcg DAILYBB PO 10/03/17 06:00 11/02/17 06:59 10/03/17 06:28 88 MCG Ropinirole HCl (Requip Tab) 0.5 mg QPM PO 10/03/17 21:00 11/02/17 20:59 Venlafaxine HCl (effeXOR EXTENDED REL CAP) 75 mg QAM PO 10/03/17 09:00 11/02/17 08:59 10/03/17 08:14 75 MG Cyanocobalamin (Vitamin B-12 Tab) 1,000 mcg QAM PO 10/03/17 09:00 11/02/17 08:59 10/03/17 08:14 1,000 MCG Pantoprazole Sodium (Protonix Tab) 40 mg QAM PO 10/03/17 09:00 11/02/17 08:59 10/03/17 08:15 40 MG Ferrous Sulfate (Feosol Tab) 325 mg QAM PO 10/03/17 09:00 11/02/17 08:59 10/03/17 08:14 325 MG Mirtazapine (Remeron Solutab) 30 mg QPM PO 10/03/17 21:00 11/02/17 20:59 Insulin Aspart (novoLOG ASPART) SLIDING SCALE If C... ACHS SC 10/03/17 07:00 11/02/17 06:59 Glucose (Glucose 40% Gel) 15-30 GRAMS 15 GRAMS... UD PRN PO 10/03/17 04:00 11/02/17 03:59 Glucose (Glucose Chew Tab) 4-8 Tablets 4 Tabl... UD PRN PO 10/03/17 04:00 11/02/17 03:59 Dextrose (Dextrose 50% 50ML Syringe) 25-50ML OF 50% DW IV FOR... UD PRN IV 10/03/17 04:00 11/02/17 03:59 Glucagon (Glucagon Inj) 1 mg UD PRN SQ 10/03/17 04:00 11/02/17 03:59 Acetaminophen (Tylenol Tab) 650 mg Q4H PRN PO 10/03/17 08:45 11/02/17 08:44 10/03/17 15:26 650 MG Tramadol HCl (Ultram Tab) @ Q6 PRN PO 10/03/17 08:45 11/02/17 08:44 10/03/17 10:02 50 MG
[2017-10-03] MEDS: DONEPEZIL HCL 10 MG TAB PO SCH (20:50)
[2017-10-03] MEDS: ATORVASTATIN 40 MG TAB PO SCH (20:50)
[2017-10-03] MEDS: ROPINIROLE HCL 1 MG TAB PO SCH (20:50)
[2017-10-03] MEDS: MIRTAZAPINE SOLTAB 15 MG PO SCH (20:50)
[2017-10-04] VITALS (9 sets, daily range): BP systolic 106–145; BP diastolic 71–81; PULSE 50–114; TEMP 36.4–36.7; O2SAT 93–100
[2017-10-04] MEDS: TRAMADOL HCL 50 MG TAB PO PRN (00:12)
[2017-10-04] MEDS: LEVOTHYROXINE 88 MCG TAB PO SCH (05:52)
[2017-10-04] MEDS: INSULIN ASPART 100 UNITS/ML 3 ML PEN SC SCH ×4 (07:00→20:05)
[2017-10-04] MEDS: FERROUS SULFATE 325 MG TAB PO SCH (07:52)
[2017-10-04] MEDS: CYANOCOBALAMIN 500 MCG TAB (VIT B-12) PO SCH (07:53)
[2017-10-04] MEDS: PANTOprazole SOD 40 MG TAB PO SCH (07:53)
[2017-10-04] MEDS: VENLAFAXINE HCL XR 75 MG CAPXR PO SCH (07:53)
[2017-10-04] MEDS: SODIUM CHLORIDE 0.9% 1000ML 1,000 ML IV SCH (07:54)
[2017-10-04] MEDS ORDERED: PERFLUTREN LIPID MICROSPHERE (DEFINITY) IV ONE (11:51)
--- NOTE | 2017-10-04 14:56 | ECHOCARDIOGRAM REPORT ---
*NOTICE TO RECEIVING [employer]Y This information is strictly Confidential and protected under [place] law. [place] law prohibits you from making any further disclosure of this information unless further disclosure is expressly permitted by the written consent of the person to whom it pertains or is authorized by law. A general authorization for the release of medical or other information is not sufficient for this purpose. Hospital accepts no responsibility if the information is made available to any other person, INCLUDING THE PATIENT. Interpretation Summary * Name: MAURISIO GIBSON Study Date: 10/04/2017 10:29 AM BP: 128/76 mmHg * Patient Location: C.2T\S\S230\S\2 HR: 90 * : 1955 (M/d/yyy) Gender: Female Height: 61 in * Age: 62 yrs Ethnicity: [place] Weight: 174 lb * Ordering Physician: Annie Beltran * Referring Physician: Self, Referred * Performed By: Arcenio Alicia RCS * * Reason For Study: Hypotension * BSA: 1.8 m2 * The study was technically adequate. * There is no comparison study available. * -- Conclusions -- * Ejection Fraction = 60-65%. * Grade I diastolic dysfunction, (abnormal relaxation pattern). * No significant valvular pathology. Procedure Details * A complete two-dimensional transthoracic echocardiogram was performed (2D, M-mode, Doppler and color flow Doppler). * A contrast injection of Definity was performed to improve assessment of LV function. * Contrast was injected into an intravenous site in the left arm. * One vial of Definity ultrasound contrast was diluted in normal saline to a total volume of 10 ml. A total of '2' ml of solution was administered during imaging. * Lot # [id number] of Definity utilized for procedure. * Expiration date . * The attending nurse who injected the contrast agent was Shania Marley RN. Left Ventricle * The left ventricle is normal in size. * There is no thrombus. * There is normal left ventricular wall thickness. * Ejection Fraction = 60-65%. * Left ventricular systolic function is normal. * No regional wall motion abnormalities noted. Right Ventricle * The right ventricle is normal size. * The right ventricular systolic function is normal as assessed by tricuspid annular plane systolic excursion (TAPSE) (normal >1.5 cm). Atria * The left atrial size is normal. * Right atrial size is normal. * There is no evidence of atrial septal defect, but resolution does not allow assessment for a patent foramen ovale. Mitral Valve * The mitral valve is normal. * There is no mitral valve stenosis. * Significant mitral regurgitation is absent. Tricuspid Valve * The tricuspid valve is normal. * There is no tricuspid stenosis. * Significant tricuspid regurgitation is absent. Aortic Valve * The aortic valve is trileaflet. * Aortic stenosis is absent. * There is no significant aortic regurgitation. Pulmonic Valve * The pulmonary valve is not well seen, but the Doppler examination is normal without significant regurgitation or stenosis. Great Vessels * The aortic root and proximal ascending aorta are normal sized. Pericardium/Pleural * There is no pericardial effusion. Great Vessels * Normal inferior vena cava size and collapsability with sniff indicates a normal right atrial pressure of 3 mmHg Left Ventricular Diastolic Function * Grade I diastolic dysfunction, (abnormal relaxation pattern). MMode 2D Measurements and Calculations IVSd 0.95 cm IVSs 1.2 cm LVIDd 4.2 cm LVIDs 3.6 cm LVPWd 0.99 cm LVPWs 1.2 cm IVS/LVPW 0.95 FS 16.2 % EDV(Teich) 80.3 ml ESV(Teich) 52.8 ml EF(Teich) 34.3 % EDV(cubed) 76.2 ml ESV(cubed) 44.9 ml EF(cubed) 41.1 % % IVS thick 21.6 % % LVPW thick 20.7 % LV mass(C)d 133.8 grams LV mass(C)dI 75.2 grams/m\S\2 LV mass(C)s 134.8 grams LV mass(C)sI 75.7 grams/m\S\2 CO(Teich) 2.6 l/min CI(Teich) 1.4 l/min/m\S\2 SV(Teich) 27.6 ml SI(Teich) 15.5 ml/m\S\2 CO(cubed) 2.9 l/min CI(cubed) 1.6 l/min/m\S\2 SV(cubed) 31.3 ml SI(cubed) 17.6 ml/m\S\2 Ao root diam 2.7 cm Ao root area 5.7 cm\S\2 ACS 1.5 cm LA dimension 3.0 cm asc Aorta Diam 2.8 cm LA/Ao 1.1 LVAd ap4 23.4 cm\S\2 LVLd ap4 7.4 cm EDV(MOD-sp4) 61.1 ml LVAs ap4 12.0 cm\S\2 LVLs ap4 5.9 cm ESV(MOD-sp4) 21.2 ml EF(MOD-sp4) 65.3 % LVAd ap2 22.4 cm\S\2 LVLd ap2 7.3 cm EDV(MOD-sp2) 57.8 ml LVAs ap2 12.4 cm\S\2 LVLs ap2 6.0 cm ESV(MOD-sp2) 20.9 ml EF(MOD-sp2) 63.8 % CO(MOD-sp4) 3.7 l/min CI(MOD-sp4) 2.1 l/min/m\S\2 SV(MOD-sp4) 39.9 ml SI(MOD-sp4) 22.4 ml/m\S\2 CO(MOD-sp2) 3.4 l/min CI(MOD-sp2) 1.9 l/min/m\S\2 SV(MOD-sp2) 36.9 ml SI(MOD-sp2) 20.7 ml/m\S\2 Doppler Measurements and Calculations MV E max lukasz 90.7 cm/sec MV A max lukasz 101.9 cm/sec MV E/A 0.89 MV P1/2t max lukasz 92.2 cm/sec MV P1/2t 72.6 msec MVA(P1/2t) 3.0 cm\S\2 MV dec slope 372.0 cm/sec\S\2 MV dec time 0.18 sec Ao V2 max 104.2 cm/sec Ao max PG 4.3 mmHg Ao max PG (full) -0.33 mmHg LV V1 max PG 4.7 mmHg LV V1 max 108.2 cm/sec PA V2 max 83.8 cm/sec PA max PG 2.8 mmHg
[2017-10-04] MEDS ORDERED: NURSING VERBAL MED ORDER ONE (17:30)
[2017-10-04] MEDS: MIRTAZAPINE SOLTAB 15 MG PO SCH (19:52)
[2017-10-04] MEDS: ATORVASTATIN 40 MG TAB PO SCH (19:52)
[2017-10-04] MEDS: ROPINIROLE HCL 1 MG TAB PO SCH (19:52)
[2017-10-04] MEDS: DONEPEZIL HCL 10 MG TAB PO SCH (19:52)
--- NOTE | 2017-10-04 22:26 | Progress Note ---
Medicine Progress Note Date & Time of Visit: Oct 04, 2017 at 22:26. Subjective Patient doing better, no overnight events noted. Tolerating PO. Pain is improving. Requires assistance with getting out and bed and standing. Denies any symptoms of dizziness or lightheadedness. Objective Last 8 Hrs Date Time Temp Pulse Resp B/P (MAP) Pulse Ox O2 Delivery O2 Flow Rate FiO2 10/04/17 20:00 Room Air 10/04/17 19:00 36.7 92 20 118/76 (90) 98 Room Air 10/04/17 16:00 Room Air 10/04/17 15:09 36.6 50 17 111/72 (85) 94 Room Air 10/04/17 14:37 97 Nasal Cannula 1.0 10/04/17 14:33 98 Nasal Cannula 2.0 Physical Exam: GENERAL: Patient is in no acute distress. HEENT: No acute trauma, normocephalic, mucous membranes moist, no nasal congestion, no scleral icterus. B/L periorbital ecchymosis, right nasal bridge and wall with a sutured lac, no drainage NECK: No stridor, trachea is midline. LUNGS: Clear to auscultation bilaterally, no wheeze, no rhonchi, breath sounds equal. HEART: Without murmurs gallops or rubs, regular rate and rhythm. ABDOMEN: Soft, nontender, bowel sounds positive EXTREMITIES: No cyanosis or edema, moving all joints without pain or difficulty , has residual right sided relative weakness NEUROLOGIC: Oriented x 3, no acute motor or sensory deficits, no focal weakness. SKIN: No rash, no jaundice, no diaphoresis. Laboratory Results: Last 24 Hours Test 10/04/17 06:20 10/04/17 11:44 10/04/17 17:08 10/04/17 19:59 Bedside Glucose 109 mg/dl 104 mg/dl 107 mg/dl 124 mg/dl Assessment & Plan HYPOTENSION: -orthostatics negative -Losartan, Lyrica, and Trazodone held for low BP -can restart these medications if blood pressure is improved/elevated -continue IV fluids and encourage PO -TTE: normal, EF 60-65%, grade I diastolic dysfunction, no significant valvular disease FALL: of unknown circumstances -orthostatics negative -patient reported to family she was lightheaded when the fall occurred -no evidence for infection -was hypotensive on admission, BP meds held -laceration across bridge of nose sutured DM TYPE II: -hold metformin -also held glargine for now to avoid hypoglycemia -on sliding scale insulin coverage for now -HbA1c: 5.9% -has large dose insulin requirements at home as glargine 45 units so if patient' s glucose becomes elevated then restart glargine -will likely need modified dose at discharge HYPOTHYROIDISM: -continue levothyroxine ANXIETY/DEPRESSION: -patent has other medications for anxiety/depression, continue Remeron and Effexor -continue donepezil, ropinirole -trazodone held AMBULATORY DYSFUNCTION: -PT/OT consulted -will likely need rehab upon discharge -uses walker when outside of the home but not at home PRIOR HX OF CVA: -previous stroke with residual slurred/slow speech and relative right sided weakness compared to left side -CT Head: show stable encephalomalacia in the left MCA distribution; soft tissue injury in right nasal soft tissues LEUKOCYTOSIS: resolved -likely reactive from the fall -has been afebrile -UA negative Current Inpatient Medications: Current Inpatient Medications Medications (Trade) Dose Ordered Sig/Julian Route Start Time Stop Time Status Last Admin Dose Admin Ioversol (Optiray 320) 100 ml UD PRN IV 10/03/17 00:30 10/07/17 00:29 Atorvastatin Calcium (Lipitor Tab) 80 mg QPM PO 10/03/17 21:00 11/02/17 20:59 10/04/17 19:52 80 MG Donepezil HCl (Aricept Tab) 10 mg HS PO 10/03/17 21:00 11/02/17 20:59 10/04/17 19:52 10 MG Levothyroxine Sodium (Synthroid Tab) 88 mcg DAILYBB PO 10/03/17 06:00 11/02/17 06:59 10/04/17 05:52 88 MCG Ropinirole HCl (Requip Tab) 0.5 mg QPM PO 10/03/17 21:00 11/02/17 20:59 10/04/17 19:52 0.5 MG Venlafaxine HCl (effeXOR EXTENDED REL CAP) 75 mg QAM PO 10/03/17 09:00 11/02/17 08:59 10/04/17 07:53 75 MG Cyanocobalamin (Vitamin B-12 Tab) 1,000 mcg QAM PO 10/03/17 09:00 11/02/17 08:59 10/04/17 07:53 1,000 MCG Pantoprazole Sodium (Protonix Tab) 40 mg QAM PO 10/03/17 09:00 11/02/17 08:59 10/04/17 07:53 40 MG Ferrous Sulfate (Feosol Tab) 325 mg QAM PO 10/03/17 09:00 11/02/17 08:59 10/04/17 07:52 325 MG Mirtazapine (Remeron Solutab) 30 mg QPM PO 10/03/17 21:00 11/02/17 20:59 10/04/17 19:52 30 MG Insulin Aspart (novoLOG ASPART) SLIDING SCALE If C... ACHS SC 10/03/17 07:00 11/02/17 06:59 Glucose (Glucose 40% Gel) 15-30 GRAMS 15 GRAMS... UD PRN PO 10/03/17 04:00 11/02/17 03:59 Glucose (Glucose Chew Tab) 4-8 Tablets 4 Tabl... UD PRN PO 10/03/17 04:00 11/02/17 03:59 Dextrose (Dextrose 50% 50ML Syringe) 25-50ML OF 50% DW IV FOR... UD PRN IV 10/03/17 04:00 11/02/17 03:59 Glucagon (Glucagon Inj) 1 mg UD PRN SQ 10/03/17 04:00 11/02/17 03:59 Acetaminophen (Tylenol Tab) 650 mg Q4H PRN PO 10/03/17 08:45 11/02/17 08:44 10/03/17 15:26 650 MG Tramadol HCl (Ultram Tab) @ Q6 PRN PO 10/03/17 08:45 11/02/17 08:44 10/04/17 00:12 50 MG
[2017-10-05 03:29] VITALS: BP 92/67; PULSE 102; TEMP 37; O2SAT 94
[2017-10-05] MEDS: LEVOTHYROXINE 88 MCG TAB PO SCH (05:37)
[2017-10-05] MEDS: INSULIN ASPART 100 UNITS/ML 3 ML PEN SC SCH ×2 (07:00→11:00)
[2017-10-05 08:00] VITALS: BP 142/69; PULSE 89; TEMP 36.8; O2SAT 98
[2017-10-05] MEDS: VENLAFAXINE HCL XR 75 MG CAPXR PO SCH (08:15)
[2017-10-05] MEDS: PANTOprazole SOD 40 MG TAB PO SCH (08:15)
[2017-10-05] MEDS: FERROUS SULFATE 325 MG TAB PO SCH (08:15)
[2017-10-05] MEDS: CYANOCOBALAMIN 500 MCG TAB (VIT B-12) PO SCH (08:16)
[2017-10-05 12:25] VITALS: BP 143/84; PULSE 87; TEMP 36.9; O2SAT 95
--- NOTE | 2017-10-05 12:26 | Discharge Instructions ---
Discharge Instructions Date of Service Oct 05, 2017. Admission Reason for Admission: Fall, Head Injury Due To Trauma Discharge Discharge Diagnosis / Problem: Fall, facial injury, hypotension Discharge Goals Goal(s): Therapeutic intervention Activity Recommendations Activity Level: Assistance Required Therapies: Physical Therapy, Occupational Therapy . Additional Information Patient informed of condition: Yes Advance Directives: No DNR: No Level of Care: Acute Rehab Communicable Disease: No Prognosis: Stable Mckay Catheter: No Current Hospital Diet Patient's current hospital diet: Diabetes Type 2 Diet Discharge Diet Recommended Diet: Diabetes Type 2 Diet Pending Studies Studies pending at discharge: no Physician Orders On Transfer Special Precautions: BSG AC and HS Patient was only on 40 UNITS Glargine insulin qAM however this has been decreased to 10 UNITS because BSG were low in the hospital. Please follow and re -evaluate BSGs and titrate insulin as needed Laboratory Results Hemoglobin A1c Test 10/03/17 08:09 Range/Units Estimated Average Glucose 123 mg/dl Hemoglobin A1c 5.9 H 4.5-5.6 % Medical Emergencies . Who to Call and When: Medical Emergencies: If at any time you feel your situation is an emergency, please call 911 immediately. . Non-Emergent Contact Non-Emergency issues call your: Primary Care Provider . . "Provider Documentation" section prepared by Annie Beltran. . Core Measure Problem Core Measures: None
[2017-10-05 12:37] VITALS: BP 143/84; PULSE 87; TEMP 36.9; O2SAT 95
--- NOTE | 2017-10-05 23:11 | Discharge Summary ---
Discharge Summary Date of Service Oct 05, 2017. Discharge Summary Admission Date: Oct 03, 2017 at 03:51 Discharge Date: Oct 05, 2017 Admission Information HPI (per Admitting provider): This is a 62 year old F who reports that she was at home and fell and hit her face at home before arriving to the ED. As per patient, she had just finished urinating and was getting up from the toilet seat and then felt lightheaded and hit her face. Patient has substantial bruising of the face. Bruises of both eyelids, s/p laceration repair in the ED or right nasal bridge with sutures, head has dressing. Patient had multiple scans performed in the ED and no acute intracranial bleed or fractures on preliminary reports Patient was endorsed to medical medicine hospitalist team for admission not because of the facial injuries but primarily because the patient's blood pressure was low to low normotensive despite IV fluids. When examined by hospitalist medicine patient's heart rate consistently in the 80s (EKG on admission with normal sinus rhythm 74 beats per minute). Patient's blood pressure cuff readings were 103/48 and then upon recycling was 120/100 and then later was 89/60. Despite these low blood pressure readings, patient did not report of further lightheadedness symptoms. Patient reports history of stroke in the past with residual right sided weakness and slurred speech. She did not think that she had developed any new impediments with her speech or with her motor strength since the recent head trauma. Physical Exam (per Admitting): General Appearance: no apparent distress Head: + pertinent finding (dressing over head, sutures of right nasal bridge ) Eyes: EOMI, sclerae normal, + pertinent finding (brusing around orbits of both eyes, eyelid bruising) ENT: hearing grossly normal, pharynx normal Neck: supple, no JVD, trachea midline Respiratory/Chest: chest non-tender, lungs clear, normal breath sounds, no respiratory distress, no accessory muscle use Cardiovascular: regular rate, rhythm, no edema, no JVD, normal peripheral pulses Abdomen/GI: normal bowel sounds, non tender, soft, no organomegaly Extremities/Musculoskelatal: no calf tenderness, no pedal edema, normal range of motion, + pertinent finding (no gross deficits of right side despite pateint report that this is her weaker side) 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, alert, + pertinent finding ( some slurred or slow spech) Skin: normal color, warm/dry Hospital Course HYPOTENSION: -orthostatics negative -Losartan, Lyrica, and Trazodone held for low BP -can restart these medications if blood pressure is improved/elevated -continue IV fluids and encourage PO -TTE: normal, EF 60-65%, grade I diastolic dysfunction, no significant valvular disease FALL: of unknown circumstances -orthostatics negative -patient reported to family she was lightheaded when the fall occurred -no evidence for infection -was hypotensive on admission, BP meds held -laceration across bridge of nose sutured DM TYPE II: -hold metformin -also held glargine for now to avoid hypoglycemia -on sliding scale insulin coverage for now -HbA1c: 5.9% -has large dose insulin requirements at home as glargine 45 units so if patient' s glucose becomes elevated then restart glargine -will likely need modified dose at discharge HYPOTHYROIDISM: -continue levothyroxine ANXIETY/DEPRESSION: -patent has other medications for anxiety/depression, continue Remeron and Effexor -continue donepezil, ropinirole -trazodone held AMBULATORY DYSFUNCTION: -PT/OT consulted -will likely need rehab upon discharge -uses walker when outside of the home but not at home PRIOR HX OF CVA: -previous stroke with residual slurred/slow speech and relative right sided weakness compared to left side -CT Head: show stable encephalomalacia in the left MCA distribution; soft tissue injury in right nasal soft tissues LEUKOCYTOSIS: resolved -likely reactive from the fall -has been afebrile -UA negative Total time spent on discharge = This includes examination of the patient, discharge planning, medication reconciliation, and communication with other providers.
== END 2017-10-05 15:01 | DRG 315 ==
LOC: EDBD 22:26 → C.EDB 22:28 → C.2T 10-03 03:51 → ENRESERV 10-03 04:12
PROVIDERS: ADMIT Hospitalist; ATTEND Internal Medicine
PROC: 0HQ1XZZ Repair Face Skin, External Approach (ICD-10-PCS; principal; 2017-10-03)
DX: I95.9 Hypotension, unspecified (principal); I69.351 Hemiplegia and hemiparesis following cerebral infarction affecting right dominant side; S01.21XA Laceration without foreign body of nose, initial encounter; I69.321 Dysphasia following cerebral infarction; G93.89 Other specified disorders of brain; E11.9 Type 2 diabetes mellitus without complications; E78.5 Hyperlipidemia, unspecified; E03.9 Hypothyroidism, unspecified; D50.9 Iron deficiency anemia, unspecified; F32.9 Major depressive disorder, single episode, unspecified; F41.9 Anxiety disorder, unspecified; Z79.02 Long term (current) use of antithrombotics/antiplatelets; Z79.4 Long term (current) use of insulin; Z79.82 Long term (current) use of aspirin; Z79.84 Long term (current) use of oral hypoglycemic drugs; Z79.899 Other long term (current) drug therapy; Z88.1 Allergy status to other antibiotic agents; Z83.3 Family history of diabetes mellitus; W18.09XA Striking against other object with subsequent fall, initial encounter; Y92.002 Bathroom of unspecified non-institutional (private) residence as the place of occurrence of the external cause; D72.829 Elevated white blood cell count, unspecified

== ENCOUNTER 2018-02-16 21:37 | Emergency (ER) | payer OTHER ==
[~2018-02-16] VITALS: Ht 154.9 cm; Wt 78.8 kg
[~2018-02-16 21:37] MED LIST changes: -ALBU18002 INH; -ASPI81TA28 PO; -BISA-16 PO; -CHOL1000 PO; -FERR1TAB13 PO; +FERR1TAB62 PO; -INSDGI SC; +INSU100I23 SQ; -LEVO75TA5 PO; +LEVO88TA3 PO; -OXYC-57 PO; -TRAZ50TA35 PO; -[UNRECOGNIZED DRUG - CODE] PO
[2018-02-16 21:40] VITALS: TEMP 36.7; Ht 154.9 cm; Wt 78.8 kg
[2018-02-16] MEDS ORDERED: SODIUM CHLORIDE 0.9% 1000ML 1,000 ML IV ONE (22:00)
[2018-02-16 22:17] VITALS: O2SAT 94
[2018-02-16 22:39] LABS: BASO % 0.5 %; BASO ABS # 0.04 K/uL (0-0.2); EOS % 2.3 %; EOS ABS # 0.17 K/uL (0-0.5); HEMATOCRIT 37.8 % (37-47); HEMOGLOBIN 11.8 g/dL (12.0-16.0); IG# 0.03 K/uL (0.00-0.02); LYMPH % 31.8 %; LYMPH ABS # 2.38 K/uL (1.2-3.4); MEAN CELL VOLUME 92.4 fL (80-100); MEAN CORPUSCULAR HEMOGLOBIN 28.9 pg (25-34); MEAN CORPUSCULAR HGB CONC 31.2 g/dl (32-36); MONO % 12.7 %; MONO ABS # 0.95 K/uL (0.11-0.59); NEUT % 52.3 %; NEUT ABS # 3.91 K/uL (1.4-6.5); PLATELET COUNT 283 K/uL (130-400); RED CELL DISTRIBUTION WIDTH CV 20.2 % (11.5-14.5); RED CELL DISTRIBUTION WIDTH SD 68.3 fL (36.4-46.3); WHITE BLOOD COUNT 7.48 K/uL (4.8-10.8)
[2018-02-16 22:49] LABS: PTT PATIENT 23.6 SECONDS (21.0-31.0)
--- NOTE | 2018-02-16 23:10 | DIAGNOSTIC IMAGING REPORT ---
CT SCAN OF THE BRAIN WITHOUT IV CONTRAST CLINICAL HISTORY: Change in mental status. COMPARISON STUDY: CT of the brain dated 10/02/2017. TECHNIQUE: Unenhanced axial CT scan of the brain is performed from the vertex to the skull base. A dose lowering technique was utilized adhering to the principles of ALARA. CT DOSE: 537.48 mGy.cm FINDINGS: Brain parenchyma: There are age-related involutional changes noting mild subcortical and periventricular microangiopathic change. Left MCA territory encephalomalacia is unchanged and consistent with a remote infarct. Wallerian degeneration is noted in the left christos. There is no hemorrhage, mass effect, or evidence of acute territorial ischemia by CT criteria. Gavin-white matter is preserved. No extra-axial fluid collection is seen. Ventricles, sulci, cisterns: Prominent secondary to involutional change. Intracranial vasculature: There is atherosclerotic calcification of the cavernous carotid and vertebral arteries. Calvarium: Unremarkable. Sinuses and mastoids: The visualized paranasal sinuses are clear. The mastoid air cells are well pneumatized. Orbits: The bony orbits are grossly intact. IMPRESSION: Remote left MCA territory infarct with no hemorrhage, mass effect, or evidence of acute territorial ischemia by CT criteria. Electronically signed by: Christopher Zuniga M.D. 02/16/2018 11:08 PM Dictated Date/Time: 02/16/2018 11:04 PM
[2018-02-16 23:34] LABS: ALBUMIN 3.5 gm/dl (3.4-5.0); CALCIUM 8.5 mg/dl (8.5-10.1); CREATININE 1.24 mg/dl (0.60-1.20); POTASSIUM 3.7 mmol/L (3.5-5.1); TOTAL PROTEIN 7.3 gm/dl (6.4-8.2)
[2018-02-17] MEDS ORDERED: DSY50 PO (00:23)
[2018-02-17] MEDS ORDERED: DOCU-94 PO (00:25)
[2018-02-17] MEDS ORDERED: CHOL2000 PO (00:27)
[2018-02-17] MEDS ORDERED: ASPI81TA28 PO (00:33)
--- NOTE | 2018-02-17 06:01 | DIAGNOSTIC IMAGING REPORT ---
CHEST 2 VIEWS ROUTINE CLINICAL HISTORY: Vomiting nausea COMPARISON STUDY: 10/10/2017 FINDINGS: The bones soft tissues and hemidiaphragms are normal. The cardiomediastinal silhouette is normal. The lungs are clear. The pulmonary vasculature is normal. IMPRESSION: Negative chest. The above report was generated using voice recognition software. It may contain grammatical, syntax or spelling errors. Electronically signed by: Chris Toth M.D. 02/17/2018 6:00 AM Dictated Date/Time: 02/17/2018 5:59 AM
--- NOTE | 2018-02-17 06:13 | EMERGENCY ROOM VISIT NOTE ---
History First contact with patient: 21:52 Chief Complaint: VOMITING Stated Complaint: VOMITING Nursing Triage Summary: dizziness, nausea and vomiting after smoking marijudiaz. frequent marijuana smoker. History of Present Illness The patient is a 62 year old female who presents to the Emergency Room with complaints of nausea and vomiting bring her to the emergency department tonight. Evidently the patient lives at home by herself and has a video conferencing system with her daughter, who will check on her from time to time. The daughter evidently saw her mother smoke an entire bowl of marijuana, and subsequently had multiple episodes of emesis. EMS was contacted, and the patient was felt to be altered. The patient has not had recent fall or other injury today. She was otherwise at her baseline health today until she smoked the marijuana. The patient herself does not have any pain or complaints. History is somewhat limited secondary to the patient's status. Review of Systems More than 10 systems were reviewed and otherwise negative with the exception of history of present illness. Past Medical/Surgical History Medical Problems: (1) Anxiety (2) Carotid stenosis (3) CREST syndrome (4) CVA (cerebral infarction) (5) DJD (degenerative joint disease), lumbar (6) DM type 2 (diabetes mellitus, type 2) (7) Esophagitis (8) Fall (9) Gastroparesis (10) Generalized weakness (11) Head injury due to trauma (12) Hyperlipidemia (13) Hypothyroidism (14) Iron deficiency anemia (15) Kidney stone (16) Myalgia and myositis (17) PVD (peripheral vascular disease) Surgical Problems: (1) H/O foot surgery (2) History of hysterectomy (3) History of spinal fusion (4) S/P appendectomy Family History Diabetes mellitus MOTHER FH: cancer FATHER (lung CA) MOTHER (breast and uterine CA) Social History Smoking Status: Current Every Day Smoker (Marijuana Smoker) Alcohol Use: occasionally Drug Use: marijuana Marital Status: single Housing Status: lives with family Occupation Status: unemployed Current/Historical Medications Scheduled Aspirin (Aspirin Ec), 81 MG PO DAILY Atorvastatin (Lipitor), 80 MG PO QPM Cholecalciferol (Vitamin D3), 2,000 INTER.UNIT PO DAILY Clopidogrel (Plavix), 75 MG PO QAM Cyanocobalamin (Vitamin B12), 1,000 MCG PO QAM Donepezil Hydrochloride (Aricept), 10 MG PO HS Esomeprazole Magnesium (Nexium), 40 MG PO QAM Ferrous Sulfate (Ferrous Sulfate), 325 MG PO QAM Insulin Glargine (Basaglar Kwikpen), 10 UNITS SQ QAM Levothyroxine Sodium (Levothyroxine Sodium), 88 MCG PO DAILY Loratadine (Claritin), 10 MG PO QPM Losartan Potassium (Losartan Potassium), 25 MG PO QAM Metformin Hcl (Glucophage), 1,500 MG PO QAM Mirtazapine Soltab (Remeron Soltab), 30 MG PO QPM Multivitamin (Multivitamin), 1 TAB PO QAM Pregabalin (Lyrica), 100 MG PO QAM Ropinirole (Requip), 0.5 MG PO QPM Venlafaxine Hcl (Venlafaxine Hcl Er), 75 MG PO QAM Scheduled PRN Docusate Sodium (Colace), 1 CAP PO BID PRN for constipation Trazodone HCl (Trazodone HCl), 50 MG PO HS PRN for Sleep Physical Exam Vital Signs Date Time Temp Pulse Resp B/P (MAP) Pulse Ox O2 Delivery O2 Flow Rate FiO2 02/17/18 07:36 66 18 88/55 99 Room Air 02/17/18 07:05 66 18 79/58 99 Room Air 02/17/18 06:35 65 17 69/43 95 Room Air 02/17/18 06:03 64 02/17/18 04:41 68 14 65/47 100 Room Air 02/17/18 03:05 71 16 88/52 97 Room Air 02/17/18 01:31 74 16 82/55 98 Nasal Cannula 02/17/18 01:10 72 02/17/18 00:34 80 16 77/49 100 Nasal Cannula 2.0 02/16/18 23:12 75 16 70/52 94 Room Air 02/16/18 22:51 69 14 107/51 94 Room Air 02/16/18 22:31 68 19 87/44 94 Room Air 02/16/18 22:17 94 Room Air 02/16/18 21:47 70 02/16/18 21:40 36.7 71 13 103/63 95 Room Air Physical Exam VITALS: Vitals are noted on the nurse's note and reviewed by myself. Vital signs including low blood pressures noted. GENERAL: White female who is answering questions very slowly and deliberately. She does appear under the influence of marijuana. HEAD: Normocephalic atraumatic. NECK: Supple without nuchal rigidity. No lymphadenopathy. No thyromegaly. Cervical spine is nontender. HEART: Regular rate and rhythm without murmurs gallops or rubs. LUNGS: Clear to auscultation bilaterally without wheezes, rales or rhonchi. No retractions or accessory muscle use. ABDOMEN: Positive normal bowel sounds x 4. Soft, nontender, without masses or organomegaly. No guarding or rebound tenderness. MUSCULOSKELETAL: No muscle atrophy, erythema, or edema noted. Full range of motion in all extremities. NEURO: Patient was alert and oriented to person place and time. CN II through XII grossly intact. Medical Decision & Procedures ER Provider Diagnostic Interpretation: CT SCAN OF THE BRAIN WITHOUT IV CONTRAST CLINICAL HISTORY: Change in mental status. COMPARISON STUDY: CT of the brain dated 10/02/2017. TECHNIQUE: Unenhanced axial CT scan of the brain is performed from the vertex to the skull base. A dose lowering technique was utilized adhering to the principles of ALARA. CT DOSE: 537.48 mGy.cm FINDINGS: Brain parenchyma: There are age-related involutional changes noting mild subcortical and periventricular microangiopathic change. Left MCA territory encephalomalacia is unchanged and consistent with a remote infarct. Wallerian degeneration is noted in the left christos. There is no hemorrhage, mass effect, or evidence of acute territorial ischemia by CT criteria. Gavin-white matter is preserved. No extra-axial fluid collection is seen. Ventricles, sulci, cisterns: Prominent secondary to involutional change. Intracranial vasculature: There is atherosclerotic calcification of the cavernous carotid and vertebral arteries. Calvarium: Unremarkable. Sinuses and mastoids: The visualized paranasal sinuses are clear. The mastoid air cells are well pneumatized. Orbits: The bony orbits are grossly intact. IMPRESSION: Remote left MCA territory infarct with no hemorrhage, mass effect, or evidence of acute territorial ischemia by CT criteria. CHEST 2 VIEWS ROUTINE CLINICAL HISTORY: Vomiting nausea COMPARISON STUDY: 10/10/2017 FINDINGS: The bones soft tissues and hemidiaphragms are normal. The cardiomediastinal silhouette is normal. The lungs are clear. The pulmonary vasculature is normal. IMPRESSION: Negative chest. Laboratory Results 02/16/18 22:08 Red Blood Count 4.09, Mean Corpuscular Volume 92.4, Mean Corpuscular Hemoglobin 28.9, Mean Corpuscular Hemoglobin Concent 31.2, Mean Platelet Volume 10.0, Neutrophils (%) (Auto) 52.3, Lymphocytes (%) (Auto) 31.8, Monocytes (%) (Auto) 12.7, Eosinophils (%) (Auto) 2.3, Basophils (%) (Auto) 0.5, Neutrophils # (Auto ) 3.91, Lymphocytes # (Auto) 2.38, Monocytes # (Auto) 0.95, Eosinophils # (Auto ) 0.17, Basophils # (Auto) 0.04 02/16/18 22:08 Test 02/16/18 22:08 02/16/18 22:16 02/16/18 22:25 White Blood Count 7.48 K/uL (4.8-10.8) Red Blood Count 4.09 M/uL (4.2-5.4) Hemoglobin 11.8 g/dL (12.0-16.0) Hematocrit 37.8 % (37-47) Mean Corpuscular Volume 92.4 fL (80-100) Mean Corpuscular Hemoglobin 28.9 pg (25-34) Mean Corpuscular Hemoglobin Concent 31.2 g/dl (32-36) Platelet Count 283 K/uL (130-400) Mean Platelet Volume 10.0 fL (7.4-10.4) Neutrophils (%) (Auto) 52.3 % Lymphocytes (%) (Auto) 31.8 % Monocytes (%) (Auto) 12.7 % Eosinophils (%) (Auto) 2.3 % Basophils (%) (Auto) 0.5 % Neutrophils # (Auto) 3.91 K/uL (1.4-6.5) Lymphocytes # (Auto) 2.38 K/uL (1.2-3.4) Monocytes # (Auto) 0.95 K/uL (0.11-0.59) Eosinophils # (Auto) 0.17 K/uL (0-0.5) Basophils # (Auto) 0.04 K/uL (0-0.2) RDW Standard Deviation 68.3 fL (36.4-46.3) RDW Coefficient of Variation 20.2 % (11.5-14.5) Immature Granulocyte % (Auto) 0.4 % Immature Granulocyte # (Auto) 0.03 K/uL (0.00-0.02) Anisocytosis PRESENT Prothrombin Time 10.5 SECONDS (9.0-12.0) Prothromb Time International Ratio 1.0 (0.9-1.1) Activated Partial Thromboplast Time 23.6 SECONDS (21.0-31.0) Partial Thromboplastin Ratio 0.9 Anion Gap 4.0 mmol/L (3-11) Est Creatinine Clear Calc Drug Dose 44.7 ml/min Estimated GFR () 53.9 Estimated GFR (Non- 46.5 BUN/Creatinine Ratio 6.8 (10-20) Calcium Level 8.5 mg/dl (8.5-10.1) Magnesium Level 2.3 mg/dl (1.8-2.4) Total Bilirubin 0.2 mg/dl (0.2-1) Aspartate Amino Transf (AST/SGOT) 30 U/L (15-37) Alanine Aminotransferase (ALT/SGPT) 26 U/L (12-78) Alkaline Phosphatase 128 U/L (45-117) Total Protein 7.3 gm/dl (6.4-8.2) Albumin 3.5 gm/dl (3.4-5.0) Globulin 3.8 gm/dl (2.5-4.0) Albumin/Globulin Ratio 0.9 (0.9-2) Lipase 267 U/L (73-393) Ethyl Alcohol mg/dL < 3.0 mg/dl (0-3) Bedside Troponin I < 0.030 ng/ml (0-0.045) Urine Color DK YELLOW Urine Appearance CLEAR (CLEAR) Urine pH 5.0 (4.5-7.5) Urine Specific [place] 1.029 (1.000-1.030) Urine Protein TRACE (NEG) Urine Glucose (UA) NEG (NEG) Urine Ketones TRACE (NEG) Urine Occult Blood NEG (NEG) Urine Nitrite NEG (NEG) Urine Bilirubin NEG (NEG) Urine Urobilinogen NEG (NEG) Urine Leukocyte Esterase NEG (NEG) Urine WBC (Auto) 1-5 /hpf (0-5) Urine RBC (Auto) 0-4 /hpf (0-4) Urine Hyaline Casts (Auto) 5-10 /lpf (0-5) Urine Epithelial Cells (Auto) 20-30 /lpf (0-5) Urine Bacteria (Auto) NEG (NEG) Urine Opiates Screen NEG (NEG) Urine Methadone, Qualitative NEG (NEG) Urine Barbiturates NEG (NEG) Urine Phencyclidine (PCP) Level NEG (NEG) Ur Amphetamine/Methamphetamine NEG (NEG) MDMA (Ecstasy) Screen POS (NEG) Urine Benzodiazepines Screen NEG (NEG) Urine Cocaine Metabolite NEG (NEG) Urine Marijuana (THC) POS (NEG) Medications Administered Medications (Trade) Dose Ordered Sig/Julian Route Start Time Stop Time Status Last Admin Dose Admin Sodium Chloride 1,000 ml @ 999 mls/hr Q1H1M ONCE IV 02/16/18 22:00 02/16/18 23:00 DC 02/16/18 22:26 999 MLS/HR Sodium Chloride 1,000 ml @ 999 mls/hr Q1H1M ONCE IV 02/17/18 06:15 02/17/18 07:15 DC 02/17/18 06:15 999 MLS/HR ED Course Physical exam and history were performed. Nursing notes, EMR, and Medication List were personally reviewed. Patient appears to have suffered emesis after smoking a large amount of marijuana. Per history the patient utilizes marijuana on a daily basis. On examination the patient is slowly answering questions, and does appear under the influence of marijuana. IV access was established and labs are obtained. Chest x-ray and CT scan of the head was performed. The patient was hydrated and medicated as above. The patient's blood work was reviewed. She does not have a significantly elevated white blood cell count, gross anemia, bandemia, or significant electrolyte imbalance. Troponin 1 is negative. Chest x-ray was reviewed by myself and radiology showing acute process. CT scan is also without acute process. We did speak with the patient's daughter, who indicated that she would not be able to pickle sorter the patient until much later in the morning, roughly at 8 AM. The patient was able to sleep very comfortably here in the emergency department. We continue to keep her on a monitor, and the patient had intermittent episodes of low blood pressure. This was evident in the past, and seems to be most prevalent when the patient is sleeping. We did give her additional saline and continue to monitor her. Overall the patient appears well for discharge home. Her blood pressure did improve when she was awoken from sleep and was able to ambulate and use the bathroom. She seems to have returned to her baseline. I suspect her symptoms are from the marijuana and should improve with abstinence. The patient was given conservative care measures as below and otherwise invited back to the ER with any new, worsening, or concerning symptoms. The chart was completed utilizing [employer] Voice Recognition Software. Grammatical errors, random word insertions, pronoun errors, and incomplete sentences are an occasional consequence of this system due to software limitations, ambient noise, and hardware issues. Any formal questions or concerns about the content, text, or information contained within the body of this dictation should be directly addressed to the provider for clarification. . Medical Decision Differential diagnosis: Etiologies such as metabolic, infection, hypoglycemia, electrolyte abnormalities , cardiac sources, intracerebral event, toxicologic, neurologic, as well as others were entertained. Impression Primary Impression: Marijuana abuse Additional Impression: Altered mental state Departure Information Dispostion Home / Self-Care Condition GOOD Forms HOME CARE DOCUMENTATION FORM, IMPORTANT VISIT INFORMATION Patient Instructions [facility] Additional Instructions You were seen and evaluated today on an emergency basis only. This is not a substitute for, or an effort to provide, complete comprehensive medical care. It is not possible to recognize and treat all injuries or illnesses in a single emergency department visit. For this reason it is recommended that you followup with your primary care physician with any ongoing or persisting symptoms. Stop smoking marijuana as this likely caused your symptoms. You are welcome to return to the emergency department anytime with new, worsening, or concerning symptoms. Problem Qualifiers
[2018-02-17] MEDS ORDERED: SODIUM CHLORIDE 0.9% 1000ML 1,000 ML IV ONE (06:15)
[2018-02-17 07:36] VITALS: BP 88/55; PULSE 66; O2SAT 99
== END 2018-02-17 08:00 | disposition home or self-care (01) ==
LOC: EDBD 21:37 → C.EDA 21:40
DX: F12.10 Cannabis abuse, uncomplicated (principal); R41.82 Altered mental status, unspecified; M34.1 CR(E)ST syndrome; Z86.73 Personal history of transient ischemic attack (TIA), and cerebral infarction without residual deficits; E11.9 Type 2 diabetes mellitus without complications; E78.5 Hyperlipidemia, unspecified; E03.9 Hypothyroidism, unspecified; M60.9 Myositis, unspecified; M79.1 Myalgia; F17.200 Nicotine dependence, unspecified, uncomplicated; F12.90 Cannabis use, unspecified, uncomplicated; Z79.82 Long term (current) use of aspirin; Z79.4 Long term (current) use of insulin

== ENCOUNTER 2018-09-10 13:24 | Inpatient (IN) ==
[2018-09-10] MEDS ORDERED: ALBUT/IPRATROP 3MG/0.5MG NEB 3 ML VIAL NEB STA (13:53)
[2018-09-10] MEDS ORDERED: ACETAMINOPHEN 500 MG TAB PO STA (13:53)
[2018-09-10] MEDS ORDERED: SODIUM CHLORIDE 0.9% 1000ML 500 ML IV ONE ×2 (13:53→15:41)
--- NOTE | 2018-09-10 14:06 | Emergency Department Note ---
History of Present Illness General Chief complaint: Flu Like Symptoms Stated complaint: flu symptoms Time Seen by Provider: 09/10/18 13:36 History of Present Illness Maximum Pain Intensity: 5 This patient is a 63-year-old female who presents to the emergency department via EMS with complaints of weakness, dry cough and diarrhea that started 3 days ago. The patient denies any chest pain or shortness of breath. The cough is dry. She denies any sore throat. No nausea or vomiting. No abdominal pain. No dysuria. The patient's caregiver came in to see her today and noticed that she was extremely weak, which is why the called the ambulance to come to the emergency department for evaluation. Home Medications Home Medications Medication Instructions Recorded Confirmed Type albuterol sulfate [ProAir 2 inh INHALATION QID 07/14/18 09/10/18 History RespiClick] aspirin [Aspirin Low Dose] 81 mg PO QAM 07/14/18 09/10/18 History atorvastatin 80 mg PO HS 07/14/18 09/10/18 History bisacodyl [Dulcolax (bisacodyl)] 5 mg PO HS PRN 07/14/18 09/10/18 History cholecalciferol (vitamin D3) 1,000 unit PO QAM 07/14/18 09/10/18 History [Vitamin D3] clopidogrel 75 mg PO QAM 07/14/18 09/10/18 History docusate calcium [Stool Softener] 240 mg PO DAILY PRN 07/14/18 09/10/18 History donepezil 10 mg PO HS 07/14/18 09/10/18 History esomeprazole magnesium 40 mg PO QAM 07/14/18 09/10/18 History ezetimibe 10 mg PO QAM 07/14/18 09/10/18 History ferrous sulfate 325 mg PO QAM 07/14/18 09/10/18 History insulin glargine [Basaglar KwikPen 55 unit SUBCUT QAM 07/14/18 09/10/18 History U-100 Insulin] levothyroxine 88 mcg PO QAM 07/14/18 09/10/18 History loratadine [Claritin] 10 mg PO HS 07/14/18 09/10/18 History losartan 25 mg PO QAM 07/14/18 09/10/18 History metformin 1,500 mg PO BIDM 07/14/18 09/10/18 History mirtazapine 30 mg PO HS 07/14/18 09/10/18 History multivitamin 1 tab PO QAM 07/14/18 09/10/18 History pregabalin [Lyrica] 100 mg PO BIDM 07/14/18 09/10/18 History ropinirole 0.5 mg PO HS 07/14/18 09/10/18 History trazodone 50 mg PO HS PRN 07/14/18 09/10/18 History venlafaxine 75 mg PO QAM 07/14/18 09/10/18 History Allergies Allergy/AdvReac Type Severity Reaction Status Date / Time clarithromycin AdvReac Unknown FEEL WEIRD Verified 09/10/18 15:07 Past Med/Surg History Medical History Mood disorder (Chronic) Marijuana use (Chronic) History of CVA with residual deficit (Chronic) H/o L MCA stroke during attempted L SCA stenting. Has residual dysphagia Anemia (Chronic) CREST syndrome (Chronic) PVD (peripheral vascular disease) (Chronic) Hypothyroidism (Chronic) DM type 2 (diabetes mellitus, type 2) (Chronic) DJD (degenerative joint disease), lumbar (Chronic) Hyperlipidemia (Chronic) Carotid stenosis (Chronic) Esophagitis (Chronic) Gastroparesis (Chronic) Iron deficiency anemia (Chronic) Surgical History S/P appendectomy (Resolved 10/11/12) History of spinal fusion (Resolved) History of hysterectomy (Resolved) H/O foot surgery (Resolved) Social History Current Living Situation: Alone Other Information That Helps Us Care for You: No Feels Safe at Home: Yes Safety Concerns: Feels Safe At This Time Smoking Status: Former smoker Hx Alcohol Use: No Hx Substance Use: Yes substance use type: marijuana Substance Use Type Other:: Smokes a bowl each weekly. Last smoked 1 week ago Last Used Substance: Unknown Beliefs That Will Affect Care: None Preferred Language: Korean Communication Ability: Effective Systems Programmer Required: No Review of Systems A total of 10 systems reviewed and were otherwise negative Physical Exam Vital Signs Vital Signs - 24 hr 09/10/18 13:30 09/10/18 13:31 09/10/18 13:38 Temperature 36.8 C Temperature Source Oral Sepsis Recent Fever Within 48 Hours No Sepsis New/Unexplained Change in Mental Status No Sepsis Action Taken by Nursing No Action Required Pulse Rate 110 H 108 H 112 H Pulse Rate [Right Radial] Pulse Rate from SpO2 Sensor 110 H 111 H Pulse Rhythm Regular Pulse Rhythm [Right Radial] Pulse Strength Normal Pulse Strength [Right Radial] Respiratory Rate 22 22 29 H Respiratory Effort / Characteristics Non-Labored Spontaneous Respiratory Depth Normal Respiratory Pattern Regular Blood Pressure 125/72 125/72 Blood Pressure [Right Arm] Blood Pressure Mean 89 89 Blood Pressure Mean [Right Arm] Blood Pressure Position Lying Blood Pressure Position [Right Arm] Pulse Oximetry 93 92 92 Oxygen Delivery Method Room Air Room Air Room Air Oxygen Flow Rate 09/10/18 13:45 09/10/18 14:00 09/10/18 14:23 Temperature Temperature Source Sepsis Recent Fever Within 48 Hours Sepsis New/Unexplained Change in Mental Status Sepsis Action Taken by Nursing Pulse Rate 114 H 110 H Pulse Rate [Right Radial] Pulse Rate from SpO2 Sensor 114 H 110 H Pulse Rhythm Pulse Rhythm [Right Radial] Pulse Strength Pulse Strength [Right Radial] Respiratory Rate 24 23 Respiratory Effort / Characteristics Respiratory Depth Respiratory Pattern Blood Pressure 82/63 L Blood Pressure [Right Arm] Blood Pressure Mean 69 Blood Pressure Mean [Right Arm] Blood Pressure Position Blood Pressure Position [Right Arm] Pulse Oximetry 95 91 96 Oxygen Delivery Method Nasal Cannula Room Air Room Air Oxygen Flow Rate 2 09/10/18 14:30 09/10/18 15:00 09/10/18 15:26 Temperature Temperature Source Sepsis Recent Fever Within 48 Hours Sepsis New/Unexplained Change in Mental Status Sepsis Action Taken by Nursing Pulse Rate 108 H 108 H 109 H Pulse Rate [Right Radial] Pulse Rate from SpO2 Sensor 108 H 107 H 111 H Pulse Rhythm Pulse Rhythm [Right Radial] Pulse Strength Pulse Strength [Right Radial] Respiratory Rate 21 22 22 Respiratory Effort / Characteristics Respiratory Depth Respiratory Pattern Blood Pressure 132/64 Blood Pressure [Right Arm] Blood Pressure Mean 86 Blood Pressure Mean [Right Arm] Blood Pressure Position Blood Pressure Position [Right Arm] Pulse Oximetry 100 100 96 Oxygen Delivery Method Nebulizer Nebulizer Room Air Oxygen Flow Rate 5 5 09/10/18 15:28 09/10/18 15:30 09/10/18 15:31 Temperature Temperature Source Sepsis Recent Fever Within 48 Hours Sepsis New/Unexplained Change in Mental Status Sepsis Action Taken by Nursing Pulse Rate 115 H 108 H 119 H Pulse Rate [Right Radial] Pulse Rate from SpO2 Sensor 114 H 108 H 117 H Pulse Rhythm Pulse Rhythm [Right Radial] Pulse Strength Pulse Strength [Right Radial] Respiratory Rate 24 23 19 Respiratory Effort / Characteristics Respiratory Depth Respiratory Pattern Blood Pressure 132/64 135/72 Blood Pressure [Right Arm] Blood Pressure Mean 86 93 Blood Pressure Mean [Right Arm] Blood Pressure Position Blood Pressure Position [Right Arm] Pulse Oximetry 94 92 91 Oxygen Delivery Method Nasal Cannula Nasal Cannula Nasal Cannula Oxygen Flow Rate 2 2 2 09/10/18 16:00 09/10/18 16:01 09/10/18 16:30 Temperature Temperature Source Sepsis Recent Fever Within 48 Hours Sepsis New/Unexplained Change in Mental Status Sepsis Action Taken by Nursing Pulse Rate 98 H 96 H 104 H Pulse Rate [Right Radial] Pulse Rate from SpO2 Sensor 100 H 95 H 103 H Pulse Rhythm Pulse Rhythm [Right Radial] Pulse Strength Pulse Strength [Right Radial] Respiratory Rate 21 20 26 H Respiratory Effort / Characteristics Respiratory Depth Respiratory Pattern Blood Pressure 146/76 H Blood Pressure [Right Arm] Blood Pressure Mean 99 Blood Pressure Mean [Right Arm] Blood Pressure Position Blood Pressure Position [Right Arm] Pulse Oximetry 98 99 100 Oxygen Delivery Method Nasal Cannula Nasal Cannula Nasal Cannula Oxygen Flow Rate 2 2 2 09/10/18 16:31 09/10/18 19:03 09/10/18 19:50 Temperature 36.9 C Temperature Source Oral Sepsis Recent Fever Within 48 Hours Sepsis New/Unexplained Change in Mental Status Sepsis Action Taken by Nursing Pulse Rate 105 H 101 H Pulse Rate [Right Radial] 107 H Pulse Rate from SpO2 Sensor 106 H Pulse Rhythm Pulse Rhythm [Right Radial] Regular Pulse Strength Pulse Strength [Right Radial] Normal Respiratory Rate 24 18 Respiratory Effort / Characteristics Non-Labored Respiratory Depth Normal Respiratory Pattern Regular Blood Pressure 138/77 Blood Pressure [Right Arm] 123/83 Blood Pressure Mean 97 Blood Pressure Mean [Right Arm] 96 Blood Pressure Position Blood Pressure Position [Right Arm] Lying Pulse Oximetry 98 98 Oxygen Delivery Method Nasal Cannula Nasal Cannula Oxygen Flow Rate 2 2 09/10/18 20:00 Temperature 37.0 C Temperature Source Oral Sepsis Recent Fever Within 48 Hours Sepsis New/Unexplained Change in Mental Status Sepsis Action Taken by Nursing Pulse Rate Pulse Rate [Right Radial] 89 Pulse Rate from SpO2 Sensor Pulse Rhythm Pulse Rhythm [Right Radial] Pulse Strength Pulse Strength [Right Radial] Respiratory Rate 20 Respiratory Effort / Characteristics Respiratory Depth Normal Respiratory Pattern Blood Pressure Blood Pressure [Right Arm] 122/74 Blood Pressure Mean Blood Pressure Mean [Right Arm] 90 Blood Pressure Position Blood Pressure Position [Right Arm] Lying Pulse Oximetry 91 Oxygen Delivery Method Room Air Oxygen Flow Rate Constitutional WD/WN, vitals as above Mildly acutely ill. Fatigued. Eyes EOM intact bilaterally ENMT external ear and nose normal, oropharynx normal (Oral mucosa dry) Neck trachea midline Respiratory normal respiratory effort, lungs clear to auscultation Cardiovascular RRR, no murmur, no edema Gastrointestinal (Abdomen) Bowel sounds present, but hypoactive. Musculoskeletal no cyanosis or clubbing, extremities motor strength 5/5 Skin no rashes, warm and dry Neurologic Stuttering speech noted. No focal motor deficits noted. Psychiatric Acting appropriately Lymphatic No lymphadenopathy appreciated. Course Patient was seen and examined Vital signs including blood pressure were reviewed medications list was verified with patient Labs were obtained, and a saline lock was established The patient was given an a DuoNeb treatment. She was ordered a 500 cc normal saline bolus and Tylenol 1 g p.o. Imaging was performed and reviewed Upon reassessment, the patient still appeared very fatigued. She was slightly hypoxic. I discussed her workup with her and her caregiver. They voiced understanding. They were in agreement with possible admission. Patient was given an additional normal saline bolus of 500. The case was discussed with case management. [facility] kindly agreed to evaluate the patient for possible inpatient treatment. Administered Medications Albuterol (Ventolin Hfa) 2 puffs INH QID OLIMPIA Stop: 10/10/18 18:14 Last Admin: 09/10/18 21:05 Dose: 2 puffs Admin: 09/10/18 20:57 Dose: 2 puffs Atorvastatin Calcium (Lipitor) 80 mg PO HS OLIMPIA Stop: 10/10/18 20:59 Last Admin: 09/10/18 20:58 Dose: 80 mg Donepezil HCl (Aricept) 10 mg PO HS OLIMPIA Stop: 10/10/18 20:59 Last Admin: 09/10/18 20:57 Dose: 10 mg Enoxaparin Sodium (Lovenox) 40 mg SQ Q24H OLIMPIA Stop: 10/10/18 17:21 Last Admin: 09/10/18 20:55 Dose: 40 mg Sodium Chloride (Nss 1000ml) 1,000 mls @ 80 mls/hr IV .[id number] OLIMPIA Stop: 09/11/18 06:29 Last Admin: 09/10/18 17:56 Dose: 80 mls/hr Insulin Aspart (Novolog Flexpen) 0 units SC ACHS OLIMPIA Stop: 10/10/18 20:59 Last Admin: 09/10/18 20:58 Dose: Not Given Insulin Glargine (Lantus Solostar Pen) 0 units SC Q12H OLIMPIA Stop: 10/10/18 20:59 Last Admin: 09/10/18 20:59 Dose: 14 units Loratadine (Claritin) 10 mg PO HS OLIMPIA Stop: 10/10/18 20:59 Last Admin: 09/10/18 20:57 Dose: 10 mg Mirtazapine (Remeron) 30 mg PO HS OLIMPIA Stop: 10/10/18 20:59 Last Admin: 09/10/18 20:56 Dose: 30 mg Oseltamivir Phosphate (Tamiflu) 30 mg PO BID OLIMPIA; Protocol Stop: 09/15/18 20:59 Last Admin: 09/10/18 20:56 Dose: 30 mg Pregabalin (Lyrica) 100 mg PO BIDM OLIMPIA Stop: 10/10/18 18:14 Last Admin: 09/10/18 21:05 Dose: 100 mg Ropinirole HCl (Requip) 0.5 mg PO HS OLIMPIA Stop: 10/10/18 20:59 Last Admin: 09/10/18 20:59 Dose: 0.5 mg Discontinued Medications Acetaminophen (Tylenol) 1,000 mg PO NOW STA Stop: 09/10/18 13:54 Last Admin: 09/10/18 14:16 Dose: 1,000 mg Albuterol (Duoneb) 3 ml NEB NOW STA Stop: 09/10/18 13:54 Last Admin: 09/10/18 14:16 Dose: 3 ml Sodium Chloride (Nss 1000ml) 500 mls @ 999 mls/hr IV .Q31M ONE Stop: 09/10/18 14:23 Last Infusion: 09/10/18 14:48 Dose: 0 mls/hr Admin: 09/10/18 14:17 Dose: 999 mls/hr Sodium Chloride (Nss 1000ml) 500 mls @ 999 mls/hr IV .Q31M ONE Stop: 09/10/18 16:11 Last Infusion: 09/10/18 16:21 Dose: 0 mls/hr Admin: 09/10/18 15:50 Dose: 999 mls/hr Oseltamivir Phosphate (Tamiflu) 75 mg PO NOW STA Stop: 09/10/18 15:46 Last Admin: 09/10/18 16:16 Dose: 75 mg Medical Decision Making Medical Records Attestation: I reviewed the patient's medical records. Home Medications Current Medication List: was personally reviewed by me Laboratory Data Attestation: I reviewed the patient's lab results. Result diagrams: 09/10/18 14:40 09/10/18 14:40 Lab Results 09/10/18 09/10/18 09/10/18 Range/Units 13:30 14:40 14:40 WBC 6.86 (4.8-10.8) K/uL RBC 4.32 (4.2-5.4) M/uL Hgb 13.4 (12.0-16.0) g/dL Hct 41.8 (37-47) % MCV 96.8 (80-100) fL MCH 31.0 (25-34) pg MCHC 32.1 (32-36) g/dL RDW Std Deviation 59.3 H (36.4-46.3) fL RDW Coeff of Jj 16.8 H (11.5-14.5) % Plt Count 248 (130-400) K/uL MPV 10.3 (7.4-10.4) fL Immature Gran % (Auto) 0.1 % Neut % (Auto) 45.1 % Lymph % (Auto) 34.1 % Clark % (Auto) 20.0 % Eos % (Auto) 0.3 % Baso % (Auto) 0.4 % Immature Gran # (Auto) 0.01 (0.00-0.02) K/uL Neut # (Auto) 3.09 (1.4-6.5) K/uL Lymph # (Auto) 2.34 (1.2-3.4) K/uL Clark # (Auto) 1.37 H (0.11-0.59) K/uL Eos # (Auto) 0.02 (0-0.5) K/uL Baso # (Auto) 0.03 (0-0.2) K/uL Absolute Nucleated RBC 0.03 H (0-0) K/uL Nucleated RBC % (auto) 0.5 % PT (9.0-12.0) Seconds INR (0.9-1.1) Sodium 136 (136-145) mmol/L Potassium 3.6 (3.5-5.1) mmol/L Chloride 103 (98-107) mmol/L Carbon Dioxide 28 (21-32) mmol/L Anion Gap 5.0 (3-11) BUN 14 (7-18) mg/dl Creatinine 1.00 (0.6-1.2) mg/dl Est Cr Clr Drug Dosing 54.8 ml/min Est GFR ( Amer) 69.4 Est GFR (Non-Af Amer) 59.9 BUN/Creatinine Ratio 13.7 (10-20) Glucose 162 H (70-99) mg/dl POC Glucose (70-99) Calcium 7.9 L (8.5-10.1) mg/dl Magnesium 2.1 (1.8-2.4) mg/dl Total Bilirubin 0.5 (0.2-1) mg/dl AST 96 H (15-37) U/L ALT 52 (12-78) U/L Alkaline Phosphatase 113 (45-117) U/L Total Protein 7.6 (6.4-8.2) gm/dl Albumin 3.2 L (3.4-5.0) gm/dl Globulin 4.4 H (2.5-4.0) gm/dl Albumin/Globulin Ratio 0.7 L (0.9-2) Influenza Type A (PCR) Pos for Influ A A* (Neg) Influenza Type B (PCR) Neg for Influ B (Neg) 09/10/18 09/10/18 09/10/18 Range/Units 14:40 17:43 20:24 WBC (4.8-10.8) K/uL RBC (4.2-5.4) M/uL Hgb (12.0-16.0) g/dL Hct (37-47) % MCV (80-100) fL MCH (25-34) pg MCHC (32-36) g/dL RDW Std Deviation (36.4-46.3) fL RDW Coeff of Jj (11.5-14.5) % Plt Count (130-400) K/uL MPV (7.4-10.4) fL Immature Gran % (Auto) % Neut % (Auto) % Lymph % (Auto) % Clark % (Auto) % Eos % (Auto) % Baso % (Auto) % Immature Gran # (Auto) (0.00-0.02) K/uL Neut # (Auto) (1.4-6.5) K/uL Lymph # (Auto) (1.2-3.4) K/uL Clark # (Auto) (0.11-0.59) K/uL Eos # (Auto) (0-0.5) K/uL Baso # (Auto) (0-0.2) K/uL Absolute Nucleated RBC (0-0) K/uL Nucleated RBC % (auto) % PT 10.6 (9.0-12.0) Seconds INR 1.0 (0.9-1.1) Sodium (136-145) mmol/L Potassium (3.5-5.1) mmol/L Chloride (98-107) mmol/L Carbon Dioxide (21-32) mmol/L Anion Gap (3-11) BUN (7-18) mg/dl Creatinine (0.6-1.2) mg/dl Est Cr Clr Drug Dosing ml/min Est GFR ( Amer) Est GFR (Non-Af Amer) BUN/Creatinine Ratio (10-20) Glucose (70-99) mg/dl POC Glucose 127 H 137 H (70-99) Calcium (8.5-10.1) mg/dl Magnesium (1.8-2.4) mg/dl Total Bilirubin (0.2-1) mg/dl AST (15-37) U/L ALT (12-78) U/L Alkaline Phosphatase (45-117) U/L Total Protein (6.4-8.2) gm/dl Albumin (3.4-5.0) gm/dl Globulin (2.5-4.0) gm/dl Albumin/Globulin Ratio (0.9-2) Influenza Type A (PCR) (Neg) Influenza Type B (PCR) (Neg) Imaging Data Attestation: I personally reviewed and interpreted this imaging study as follows : Radiologist's Impression: KUB IMPRESSION: Nonobstructive bowel gas pattern. Electronically signed by: Magan Gonzalez M.D. 09/10/2018 2:28 PM Chest x-ray IMPRESSION: No acute cardiopulmonary findings. Electronically signed by: David Carrero M.D. 09/10/2018 2:20 PM Blood Pressure Blood Pressure Findings: Normal blood pressure MDM Narrative Differential diagnosis: Bronchitis, pneumonia, influenza, other viral syndrome, viral GI illness, bacterial GI illness, inflammatory bowel disease, diverticulitis, bowel obstruction, among others This patient is a 63-year-old female who presents to the emergency department with productive cough, profound weakness and diarrhea for the last several days. On exam, she was significantly weak. She was tachycardic. She was not febrile. She was borderline hypoxic. Her labs reveal no significant leukocytosis. The patient tested positive for influenza. Her chest x-ray is clear for pneumonia. Due to the tachycardia, weakness and hypoxia, it was felt that hospitalist consultation was warranted. She was in agreement. They will evaluate the patient for possible inpatient treatment. Impression & Plan Influenza A Discharge Plan Visit Data *Final* Discharge Date/Time: 09/10/18 17:00 Chief Complaint: Flu Like Symptoms Stated Complaint: flu symptoms ED Provider: Benny Sanchez ED Midlevel Provider: Kelly Michel Discharge Problem: Influenza A Patient Disposition: Still a Patient Discharge Instructions Interventions: ED Discharge Assessment Last Done: 09/10/18 17:00
--- NOTE | 2018-09-10 14:22 | XRay Report ---
XR chest 1V portable CLINICAL HISTORY: Weakness. Cough. COMPARISON STUDY: Chest radiograph October 02, 2017. Chest CT October 03, 2017. FINDINGS: Anterior cervical spine fusion is noted. There is no pneumothorax or pleural effusion. Ther e is no consolidation or evidence for pulmonary edema. Cardiac size is normal. Mediastinal contours a re normal. The appearance of the chest is unchanged. IMPRESSION: No acute cardiopulmonary findings. Electronically signed by: David Carrero M.D. 09/10/2018 2:20 PM
--- NOTE | 2018-09-10 14:29 | XRay Report ---
KUB HISTORY: Acute diarrhea with flulike symptoms diarrhea COMPARISON: Chest radiograph of same day FINDINGS: The bowel gas pattern is non-obstructive. There is no organomegaly. No renal calculi. No u reteral calculi. No pneumoperitoneum or pneumatosis. Postoperative changes of the lower lumbar spine. No fracture. IMPRESSION: Nonobstructive bowel gas pattern. Electronically signed by: Magan Gonzalez M.D. 09/10/2018 2:28 PM
[2018-09-10 14:31] LABS: Influenza B virus by PCR Neg for Influ B (Neg)
[2018-09-10 14:54] LABS: Basophils # (auto) 0.03 K/uL (0-0.2); Basophils % (auto) 0.4 %; Eosinophils # (auto) 0.02 K/uL (0-0.5); Eosinophils % (auto) 0.3 %; Hematocrit (blood only) 41.8 % (37-47); Hemoglobin 13.4 g/dL (12.0-16.0); Immature Granulocytes # (auto) 0.01 K/uL (0.00-0.02); Immature Granulocytes % (auto) 0.1 %; Lymphocytes # (auto) 2.34 K/uL (1.2-3.4); Lymphocytes % (auto) 34.1 %; Mean Corpuscular Hgb Conc 32.1 g/dL (32-36); Mean Corpuscular Volume 96.8 fL (80-100); Mean Platelet Volume 10.3 fL (7.4-10.4); Monocytes # (auto) 1.37 K/uL (0.11-0.59); Neutrophils # (auto) 3.09 K/uL (1.4-6.5); Neutrophils % (auto) 45.1 %; Nucleated RBC # (auto) 0.03 K/uL (0-0); Nucleated RBC % (auto) 0.5 %; Platelet Count 248 K/uL (130-400); RDW Coefficient of Variation 16.8 % (11.5-14.5); RDW Standard Deviation 59.3 fL (36.4-46.3); Red Blood Count 4.32 M/uL (4.2-5.4); White Blood Count 6.86 K/uL (4.8-10.8)
[2018-09-10 15:04] LABS: Prothrombin Time 10.6 Seconds (9.0-12.0)
[2018-09-10 15:14] LABS: Albumin Level 3.2 gm/dl (3.4-5.0); BUN Creatinine Ratio 13.7 (10-20); Calcium 7.9 mg/dl (8.5-10.1); Creatinine Clr Calc Pharmacy 54.8 ml/min; Est GFR (African American) 69.4; Est GFR (Non-African American) 59.9; Magnesium 2.1 mg/dl (1.8-2.4); Potassium 3.6 mmol/L (3.5-5.1)
[2018-09-10 15:16] LABS: Albumin Globulin Ratio 0.7 (0.9-2); Bilirubin,Total 0.5 mg/dl (0.2-1); Globulin 4.4 gm/dl (2.5-4.0); Total Protein 7.6 gm/dl (6.4-8.2)
[2018-09-10] MEDS ORDERED: OSELTAMIVIR PHOSPHATE 75 MG CAP PO STA (15:45)
[2018-09-10] MEDS ORDERED: DOCUSATE CALCIUM 240 MG CAPSULE PO PRN (17:22)
[2018-09-10] MEDS ORDERED: CARBOHYDRATES FOR HYPOGLYCEMIA PO PRN (17:22)
[2018-09-10] MEDS ORDERED: POLYETHYLENE (MIRALAX) 17 GM PACK PO PRN (17:22)
[2018-09-10] MEDS ORDERED: GLUCOSE 10 TABS/TUBE PO PRN (17:22)
[2018-09-10] MEDS ORDERED: GLUCOSE 40% GEL 15 GM TUBE PO PRN (17:22)
[2018-09-10] MEDS ORDERED: GLUCAGON FOR INJ 1 MG VIAL SQ PRN (17:22)
[2018-09-10] MEDS ORDERED: LEVALBUTEROL HCL 0.63 MG/3 ML NEB NEB PRN (17:22)
[2018-09-10] MEDS ORDERED: BISACODYL 5 MG TABEC PO PRN (17:22)
[2018-09-10] MEDS ORDERED: DEXTROSE 50% 50 ML SYRINGE IV PRN (17:22)
[2018-09-10] MEDS ORDERED: TRAZODONE HCL 50 MG TAB PO PRN (17:22)
[2018-09-10] MEDS ORDERED: ACETAMINOPHEN 325 MG TAB PO PRN (17:22)
[2018-09-10] MEDS ORDERED: SODIUM CHLORIDE 0.9% 1000ML 1,000 ML IV SCH (18:00)
--- NOTE | 2018-09-10 20:50 | History & Physical Report ---
Date of Service September 10, 2018 Assessment & Plan (1) Influenza A: (2) Generalized weakness: This is a 63yo F with a PMH of DM II, h/o CVA, PVD, hypothyroidism, CREST syndrome, depression and other medical problems listed below who presents from home with weakness and non-productive cough and was found to have Influenza A. -Started on Tamiflu -Given gentle IV fluids -CXR without acute cardiopulmonary findings -Supplemental O2 as needed -PT/OT eval for conditioning. Patient lives alone with home health M-F, alone on weekends (3) Diarrhea: Endorses 5 episodes since yesterday -C diff pending (4) History of CVA with residual deficit: H/o L MCA stroke during attempted L SCA stenting. Has residual aphasia and R-sided weakness -Stable. Continue aspirin,plavix, statin (5) DM type 2 (diabetes mellitus, type 2): A1c of 6.4 in Jun 2018 -Took AM dose of lantus. Hold home medications -Basal/bolus insulin per protocol while in-patient -BSG checks AC HS (6) Vascular disease: H/o failed L SCA angioplasty /stent from brachial artery in Jul 2017. Medical management, follow up with Dr. Prado in 6 months -Continue aspirin, plavix, statin (7) Hypertension: Normotensive. Continue Losartan (8) Hypothyroidism: Continue levothyroxine (9) Mood disorder: Continue Mirtazapine, trazodone, venlafaxine (10) CREST syndrome: Has some chronic skin lesions. Not on medications (11) Marijuana use: Smokes weekly -Advised cessation (12) DJD (degenerative joint disease), lumbar: Continue Lyrica DVT Ppx: SQ Lovenox Code status: FULL PCP: Renae Dispo: Admitted to [facility]. Plan to return home once medically stable. Patient seen in collaboration with Dr. Blevins . Please see addendum. History of Present Illness Chief Complaint: cough Primary Care Provider: Oseas Macdonald This is a 63yo F with a PMH of DM II, h/o CVA, PVD, hypothyroidism, CREST syndrome, depression and other medical problems listed below who presents from home with weakness and non-productive cough. Symptoms began 3 days ago and have progressively worsened. Also endorsing poor appetite and 5 episodes of diarrhea since yesterday. No fever, chills, sore throat, nausea, vomiting or abdominal pain. Had a friend's granddaughter over last week who had the flu. Denies any chest pain or shortness of breath. Was brought in by home health aide today due to worsening weakness and concern for falls. Found to be tachycardic with HR of 110 upon arrival. Saturating 96% on room air. Influenza A positive on PCR. Allergies Allergy/AdvReac Type Severity Reaction Status Date / Time clarithromycin AdvReac Unknown FEEL WEIRD Verified 09/10/18 15:07 Home Medications Home Medications Medication Instructions Recorded Confirmed Type albuterol sulfate [ProAir 2 inh INHALATION QID 07/14/18 09/10/18 History RespiClick] aspirin [Aspirin Low Dose] 81 mg PO QAM 07/14/18 09/10/18 History atorvastatin 80 mg PO HS 07/14/18 09/10/18 History bisacodyl [Dulcolax (bisacodyl)] 5 mg PO HS PRN 07/14/18 09/10/18 History cholecalciferol (vitamin D3) 1,000 unit PO QAM 07/14/18 09/10/18 History [Vitamin D3] clopidogrel 75 mg PO QAM 07/14/18 09/10/18 History docusate calcium [Stool Softener] 240 mg PO DAILY PRN 07/14/18 09/10/18 History donepezil 10 mg PO HS 07/14/18 09/10/18 History esomeprazole magnesium 40 mg PO QAM 07/14/18 09/10/18 History ezetimibe 10 mg PO QAM 07/14/18 09/10/18 History ferrous sulfate 325 mg PO QAM 07/14/18 09/10/18 History insulin glargine [Basaglar KwikPen 55 unit SUBCUT QAM 07/14/18 09/10/18 History U-100 Insulin] levothyroxine 88 mcg PO QAM 07/14/18 09/10/18 History loratadine [Claritin] 10 mg PO HS 07/14/18 09/10/18 History losartan 25 mg PO QAM 07/14/18 09/10/18 History metformin 1,500 mg PO BIDM 07/14/18 09/10/18 History mirtazapine 30 mg PO HS 07/14/18 09/10/18 History multivitamin 1 tab PO QAM 07/14/18 09/10/18 History pregabalin [Lyrica] 100 mg PO BIDM 07/14/18 09/10/18 History ropinirole 0.5 mg PO HS 07/14/18 09/10/18 History trazodone 50 mg PO HS PRN 07/14/18 09/10/18 History venlafaxine 75 mg PO QAM 07/14/18 09/10/18 History Past Med/Surg History Medical History Mood disorder (Chronic) Marijuana use (Chronic) History of CVA with residual deficit (Chronic) H/o L MCA stroke during attempted L SCA stenting. Has residual dysphagia Anemia (Chronic) CREST syndrome (Chronic) PVD (peripheral vascular disease) (Chronic) Hypothyroidism (Chronic) DM type 2 (diabetes mellitus, type 2) (Chronic) DJD (degenerative joint disease), lumbar (Chronic) Hyperlipidemia (Chronic) Carotid stenosis (Chronic) Esophagitis (Chronic) Gastroparesis (Chronic) Iron deficiency anemia (Chronic) Surgical History S/P appendectomy (Resolved 10/11/12) History of spinal fusion (Resolved) History of hysterectomy (Resolved) H/O foot surgery (Resolved) Social History Current Living Situation: Alone Other Information That Helps Us Care for You: No Feels Safe at Home: Yes Safety Concerns: Feels Safe At This Time Smoking Status: Former smoker Hx Alcohol Use: No Hx Substance Use: Yes substance use type: marijuana Substance Use Type Other:: Smokes a bowl each weekly. Last smoked 1 week ago Last Used Substance: Unknown Beliefs That Will Affect Care: None Preferred Language: Polish Communication Ability: Effective Repair Servicer Required: No Review of Systems Constitutional: + fatigue, + weakness and + anorexia; no fever, no chills and no body aches Eyes: no worsening vision Ear, Nose, Mouth, Throat: + pain with swallowing; no sore throat Respiratory: + cough; no chest congestion, no dyspnea and no pain on inspiration Cardiovascular: no chest pain, no radiating jaw, neck or arm pain, no dyspnea on exertion and no palpitations Gastrointestinal: no nausea, no vomiting and no change in stools Genitourinary (Female): no dysuria and no hematuria Integumentary: + change in skin color (in setting of CREST syndrome ); no non- healing lesions and no skin ulcer Neurologic: no localized weakness, no numbness, no paresthesia, no behavioral changes and no confusion Psychiatric: no behavioral changes Physical Exam 2 Vital Signs (Past 24 Hours): Last Vital Signs Temp 36.9 C 09/10/18 19:03 Pulse 101 H 09/10/18 19:50 Resp 18 09/10/18 19:03 BP 123/83 09/10/18 19:03 Pulse Ox 98 09/10/18 19:03 Physical Exam: General Appearance: WD/WN, acutely ill appearing Head: normocephalic, atraumatic Eyes: normal inspection, PERRL, EOMI ENT: hearing grossly normal, pharynx normal (dry mucous membranes) Neck: supple, no JVD, no adenopathy Respiratory/Chest: lungs clear to auscultation. No wheezes, rales or rhonci. No respiratory distress or accessory muscle use Cardiovascular: tachycardic, regular rhythm, no murmur, normal peripheral pulses Abdomen/GI: normal bowel sounds, soft, non-tender to palpation Extremities/Musculoskelatal: normal inspection, no calf tenderness, normal capillary refill, no pedal edema Neurologic/Psych: alert, normal mood/affect, oriented x 3 Skin: normal color, warm/dry Results & Data Laboratory Results Short CBC 09/10/18 Range/Units 14:40 WBC 6.86 (4.8-10.8) K/uL Hgb 13.4 (12.0-16.0) g/dL Hct 41.8 (37-47) % Plt Count 248 (130-400) K/uL BMP 09/10/18 14:40 Sodium 136 Potassium 3.6 Chloride 103 Carbon Dioxide 28 BUN 14 Creatinine 1.00 Glucose 162 H Calcium 7.9 L Liver Function 09/10/18 Range/Units 14:40 Total Bilirubin 0.5 (0.2-1) mg/dl AST 96 H (15-37) U/L ALT 52 (12-78) U/L Alkaline Phosphatase 113 (45-117) U/L Albumin 3.2 L (3.4-5.0) gm/dl Diagnostic Findings CXR: IMPRESSION: No acute cardiopulmonary findings. KUB: IMPRESSION: Non-obstructive bowel gas pattern. ECG Rhythm: sinus tachycardia Code Status & VTE Plan Code Status FULL VTE Prophylaxis Plan VTE Prophylaxis will be ordered: Yes Supervising Physician Co-Signing Physician Notes HISTORY: Record reviewed. Patient interviewed and examined. Care coordinated with Genna Kuo PA-C. Please refer to her documentation for patient's history. Briefly, 63-year-old female with history of cerebrovascular disease, hypertension, peripheral vascular disease, CREST syndrome, and other problems. Presented to ED with fever, cough, diarrhea. EXAM: General- no distress Lungs-few scattered rhonchi, mild wheezing; no respiratory distress Cardiovascular- RRR; no murmur or gallop appreciated; no JVD; no pretibial edema Abdomen- + bowel sounds, soft, nontender Extremities- no cyanosis; no calf tenderness Neuro- alert, oriented Skin- warm & dry DATA: [facility] swab PCR positive for influenza A. Other lab studies as noted. Chest x-ray did not show any infiltrates. EKG performed at 1335 reviewed and demonstrated sinus tachycardia at 110/ minute , nonspecific ST/T wave abnormalities. ASSESSMENT AND PLAN: Influenza A. No infiltrates on chest x-ray. Oxygenating well. Treat with oseltamivir. Frequent loose stools. Check C. difficile. Please refer to SERGIO Kuo's documentation for discussion of other issues.
[2018-09-10] MEDS: ENOXAPARIN INJ 40 MG/0.4 ML SYR SQ SCH (20:55)
[2018-09-10] MEDS: OSELTAMIVIR PHOSPHATE SUSP 30 MG/5 ML UDP PO SCH (20:56)
[2018-09-10] MEDS: MIRTAZAPINE TAB 15 MG TAB PO SCH (20:56)
[2018-09-10] MEDS: DONEPEZIL HCL 10 MG TAB PO SCH (20:57)
[2018-09-10] MEDS: LORATADINE 10 MG TAB PO SCH (20:57)
[2018-09-10] MEDS: ALBUTEROL HFA 8 GM INHALER INH SCH ×2 (20:57→21:05)
[2018-09-10] MEDS: ATORVASTATIN 40 MG TAB PO SCH (20:58)
[2018-09-10] MEDS: INSULIN ASPART 100 UNITS/ML 3 ML PEN SC SCH (20:58)
[2018-09-10] MEDS: INSULIN GLARGINE SOLOSTAR 100 UNITS/ML 3 ML PEN SC SCH (20:59)
[2018-09-10] MEDS: ROPINIROLE HCL 0.25 MG TABLET PO SCH (20:59)
[2018-09-10] MEDS: PREGABALIN 100 MG CAP PO SCH (21:05)
[2018-09-11] MEDS: LEVOTHYROXINE SODIUM 88 MCG TABLET PO SCH (05:45)
[2018-09-11 07:54] LABS: Hemoglobin 11.8 g/dL (12.0-16.0); Mean Corpuscular Hgb Conc 31.1 g/dL (32-36); Mean Corpuscular Volume 97.4 fL (80-100); Mean Platelet Volume 10.5 fL (7.4-10.4); Platelet Count 203 K/uL (130-400); RDW Coefficient of Variation 16.9 % (11.5-14.5); RDW Standard Deviation 59.8 fL (36.4-46.3); White Blood Count 3.22 K/uL (4.8-10.8)
[2018-09-11] MEDS: MULTIVITAMIN TAB PO SCH (08:17)
[2018-09-11] MEDS: ASPIRIN 81 MG ECTAB PO SCH (08:17)
[2018-09-11] MEDS: FERROUS SULFATE 325 MG TAB PO SCH (08:18)
[2018-09-11] MEDS: PANTOprazole 40 MG TAB PO SCH (08:18)
[2018-09-11] MEDS: CHOLECALCIFEROL 1,000 UNITS TAB PO SCH (08:18)
[2018-09-11] MEDS: LOSARTAN POTASSIUM 25 MG TAB PO SCH (08:19)
[2018-09-11] MEDS: EZETIMIBE 10 MG TABLET PO SCH (08:19)
[2018-09-11] MEDS: CLOPIDOGREL BISULFATE 75 MG TAB PO SCH (08:19)
[2018-09-11] MEDS: VENLAFAXINE HCL XR 75 MG CAPXR PO SCH (08:19)
[2018-09-11] MEDS: ALBUTEROL HFA 8 GM INHALER INH SCH ×4 (08:19→20:53)
[2018-09-11 08:29] LABS: Calcium 7.8 mg/dl (8.5-10.1); Creatinine Clr Calc Pharmacy 61.4 ml/min; Est GFR (Non-African American) 69.9; Potassium 3.8 mmol/L (3.5-5.1)
[2018-09-11] MEDS: OSELTAMIVIR PHOSPHATE SUSP 30 MG/5 ML UDP PO SCH ×2 (08:30→20:57)
[2018-09-11] MEDS: PREGABALIN 100 MG CAP PO SCH ×2 (08:30→17:29)
[2018-09-11] MEDS: INSULIN ASPART 100 UNITS/ML 3 ML PEN SC SCH ×4 (08:44→20:52)
[2018-09-11] MEDS: INSULIN GLARGINE SOLOSTAR 100 UNITS/ML 3 ML PEN SC SCH ×2 (08:45→20:51)
[2018-09-11] MEDS: ENOXAPARIN INJ 40 MG/0.4 ML SYR SQ SCH (17:31)
--- NOTE | 2018-09-11 18:29 | Hospitalist Progress Note ---
Date of Service September 11, 2018 Assessment & Plan (1) Influenza A: (2) Generalized weakness: Patient is a 63 yr female who presents with weakness, non-productive cough and was found to have Influenza A. Infleunza A CXR:No acute cardiopulmonary findings. Continue Tamiflu Day #2 Supplemental O2 as needed PT/OT eval Has Home Health in place (3) Diarrhea: Stool for C diff: Negative Stool culture pending Monitor electrolytes (4) History of CVA with residual deficit: H/o L MCA stroke during attempted L SCA stenting. Has residual aphasia and R-sided weakness Continue aspirin,plavix, statin (5) DM type 2 (diabetes mellitus, type 2): Last Hb A1c of 6.4 in Jun 2018 Hold home medications Continue ISS, basal Insulin Monitor BGs (6) Vascular disease: H/o failed L SCA angioplasty /stent from brachial artery in Jul 2017. Medical management, follow up with Dr. Prado in 6 months Continue aspirin, plavix, statin (7) Hypertension: Continue Losartan (8) Hypothyroidism: Continue levothyroxine (9) Mood disorder: Continue Mirtazapine, trazodone, venlafaxine (10) CREST syndrome: Has some chronic skin lesions. (11) Marijuana use: Smokes weekly Advised cessation (12) DJD (degenerative joint disease), lumbar: Continue Lyrica DVT Px: SQ Lovenox Code status: FULL Subjective Patient is seen and examined at bedside Less SOB and cough today Weakness slowly improving Denies any chest pain Offers no other complaints Physical Exam Vital Signs (Past 24 Hours): Last Vital Signs Temp 36.9 C 09/11/18 15:00 Pulse 85 09/11/18 15:45 Resp 21 09/11/18 15:00 BP 127/70 09/11/18 15:00 Pulse Ox 96 09/11/18 15:00 Physical Exam: Physical Exam: Vitals signs as noted above General Appearance:Moderately built and nourished, no apparent distress Head: normocephalic, Atraumatic Eyes: normal inspection, EOMI Neck: supple, Trachea midline Respiratory/Chest: Normal breath sounds, CTA Cardiovascular: S1, S2, No murmur Abdomen/GI:Soft, Non tender, Bowel sounds present Extremities/Musculoskelatal:normal inspection, no edema Neurologic/Psych:AAOX3, grossly no focal neurological deficits Skin: normal color, warm Results & Data Laboratory Results Short CBC 09/11/18 Range/Units 07:33 WBC 3.22 L (4.8-10.8) K/uL Hgb 11.8 L (12.0-16.0) g/dL Hct 38.0 (37-47) % Plt Count 203 (130-400) K/uL BMP 09/11/18 07:33 Sodium 138 Potassium 3.8 Chloride 107 Carbon Dioxide 27 BUN 12 Creatinine 0.88 Glucose 101 H Calcium 7.8 L
[2018-09-11] MEDS: LORATADINE 10 MG TAB PO SCH (20:50)
[2018-09-11] MEDS: DONEPEZIL HCL 10 MG TAB PO SCH (20:50)
[2018-09-11] MEDS: MIRTAZAPINE TAB 15 MG TAB PO SCH (20:52)
[2018-09-11] MEDS: ATORVASTATIN 40 MG TAB PO SCH (20:52)
[2018-09-11] MEDS: ROPINIROLE HCL 0.25 MG TABLET PO SCH (20:53)
[2018-09-12] MEDS: LEVOTHYROXINE SODIUM 88 MCG TABLET PO SCH (06:14)
[2018-09-12 07:21] LABS: Hematocrit (blood only) 39.2 % (37-47); Hemoglobin 12.4 g/dL (12.0-16.0); Mean Corpuscular Hgb Conc 31.6 g/dL (32-36); Mean Corpuscular Volume 95.6 fL (80-100); Mean Platelet Volume 10.2 fL (7.4-10.4); Platelet Count 198 K/uL (130-400); RDW Coefficient of Variation 16.5 % (11.5-14.5); RDW Standard Deviation 57.4 fL (36.4-46.3); White Blood Count 3.03 K/uL (4.8-10.8)
[2018-09-12 07:55] LABS: BUN Creatinine Ratio 11.4 (10-20); Calcium 7.9 mg/dl (8.5-10.1); Creatinine Clr Calc Pharmacy 65.3 ml/min; Est GFR (African American) 88.3; Est GFR (Non-African American) 76.2; Potassium 3.7 mmol/L (3.5-5.1)
[2018-09-12] MEDS: CLOPIDOGREL BISULFATE 75 MG TAB PO SCH (08:33)
[2018-09-12] MEDS: LOSARTAN POTASSIUM 25 MG TAB PO SCH (08:33)
[2018-09-12] MEDS: VENLAFAXINE HCL XR 75 MG CAPXR PO SCH (08:33)
[2018-09-12] MEDS: EZETIMIBE 10 MG TABLET PO SCH (08:33)
[2018-09-12] MEDS: CHOLECALCIFEROL 1,000 UNITS TAB PO SCH (08:33)
[2018-09-12] MEDS: MULTIVITAMIN TAB PO SCH (08:33)
[2018-09-12] MEDS: PANTOprazole 40 MG TAB PO SCH (08:33)
[2018-09-12] MEDS: ASPIRIN 81 MG ECTAB PO SCH (08:34)
[2018-09-12] MEDS: FERROUS SULFATE 325 MG TAB PO SCH (08:34)
[2018-09-12] MEDS: ALBUTEROL HFA 8 GM INHALER INH SCH ×2 (08:35→13:39)
[2018-09-12] MEDS: PREGABALIN 100 MG CAP PO SCH (08:38)
[2018-09-12] MEDS: OSELTAMIVIR PHOSPHATE SUSP 30 MG/5 ML UDP PO SCH (08:39)
[2018-09-12] MEDS: INSULIN ASPART 100 UNITS/ML 3 ML PEN SC SCH ×2 (08:43→13:39)
[2018-09-12] MEDS: INSULIN GLARGINE SOLOSTAR 100 UNITS/ML 3 ML PEN SC SCH (08:43)
--- NOTE | 2018-09-12 13:58 | Hospitalist Progress Note ---
Date of Service September 12, 2018 Assessment & Plan (1) Influenza A: (2) Generalized weakness: Patient is a 63 yr female who presents with weakness, non-productive cough and was found to have Influenza A. Infleunza A CXR:No acute cardiopulmonary findings. Continue Tamiflu Day #3 Supplemental O2 as needed PT/OT eval Has Home Health in place (3) Diarrhea: Stool for C diff: Negative Stool culture:Negative Monitor electrolytes (4) History of CVA with residual deficit: H/o L MCA stroke during attempted L SCA stenting. Has residual aphasia and R-sided weakness Continue aspirin,plavix, statin (5) DM type 2 (diabetes mellitus, type 2): Last Hb A1c of 6.4 in Jun 2018 Hold home medications Continue ISS, basal Insulin Monitor BGs (6) Vascular disease: H/o failed L SCA angioplasty /stent from brachial artery in Jul 2017. Medical management, follow up with Dr. Prado in 6 months Continue aspirin, plavix, statin (7) Hypertension: Continue Losartan (8) Hypothyroidism: Continue levothyroxine (9) Mood disorder: Continue Mirtazapine, trazodone, venlafaxine (10) CREST syndrome: Has some chronic skin lesions. (11) Marijuana use: Smokes weekly Advised cessation (12) DJD (degenerative joint disease), lumbar: Continue Lyrica DVT Px: SQ Lovenox Code status: FULL Subjective Patient is seen and examined at bedside States feeling well today Offers no complaints Weakness improved Denies any chest pain, dyspnea, dizziness Discussed with patient's daughter in law today Physical Exam Vital Signs (Past 24 Hours): Last Vital Signs Temp 36.7 C 09/12/18 11:37 Pulse 82 09/12/18 11:37 Resp 17 09/12/18 11:37 BP 131/65 09/12/18 11:37 Pulse Ox 94 09/12/18 11:37 Physical Exam: Physical Exam: Vitals signs as noted above General Appearance:Moderately built and nourished, no apparent distress Head: normocephalic, Atraumatic Eyes: normal inspection, EOMI Neck: supple, Trachea midline Respiratory/Chest: Normal breath sounds, CTA Cardiovascular: S1, S2, No murmur Abdomen/GI:Soft, Non tender, Bowel sounds present Extremities/Musculoskelatal:normal inspection, no edema Neurologic/Psych:AAOX3, grossly no focal neurological deficits Skin: normal color, warm Results & Data Laboratory Results Short CBC 09/12/18 Range/Units 07:06 WBC 3.03 L (4.8-10.8) K/uL Hgb 12.4 (12.0-16.0) g/dL Hct 39.2 (37-47) % Plt Count 198 (130-400) K/uL BMP 09/12/18 07:06 Sodium 140 Potassium 3.7 Chloride 107 Carbon Dioxide 27 BUN 9 Creatinine 0.82 Glucose 104 H Calcium 7.9 L
--- NOTE | 2018-09-12 14:04 | Discharge Summary ---
Date of Service September 12, 2018 Admission HPI Per Admitting Provider This is a 63yo F with a PMH of DM II, h/o CVA, PVD, hypothyroidism, CREST syndrome, depression and other medical problems listed below who presents from home with weakness and non-productive cough. Symptoms began 3 days ago and have progressively worsened. Also endorsing poor appetite and 5 episodes of diarrhea since yesterday. No fever, chills, sore throat, nausea, vomiting or abdominal pain. Had a friend's granddaughter over last week who had the flu. Denies any chest pain or shortness of breath. Was brought in by home health aide today due to worsening weakness and concern for falls. Found to be tachycardic with HR of 110 upon arrival. Saturating 96% on room air. Influenza A positive on PCR. Admission Exam Per Admitting Provider General Appearance: WD/WN, acutely ill appearing Head: normocephalic, atraumatic Eyes: normal inspection, PERRL, EOMI ENT: hearing grossly normal, pharynx normal (dry mucous membranes) Neck: supple, no JVD, no adenopathy Respiratory/Chest: lungs clear to auscultation. No wheezes, rales or rhonci. No respiratory distress or accessory muscle use Cardiovascular: tachycardic, regular rhythm, no murmur, normal peripheral pulses Abdomen/GI: normal bowel sounds, soft, non-tender to palpation Extremities/Musculoskelatal: normal inspection, no calf tenderness, normal capillary refill, no pedal edema Neurologic/Psych: alert, normal mood/affect, oriented x 3 Skin: normal color, warm/dry Principal Diagnosis Discharge Information Discharge Diagnosis Influenza A Discharge Goals Decrease discomfort,Improve disease control, Improve function Discharge Activity Limitations Resume your previous activity Discharge Data Allergies Allergy/AdvReac Type Severity Reaction Status Date / Time clarithromycin AdvReac Unknown FEEL WEIRD Verified 09/10/18 15:07 Consultations 09/10/18 15:45 ED Decision to Admit Stat 09/10/18 17:22 Consult Case Management - Discharge Planning Routine Procedures Performed CXR: No acute cardiopulmonary findings. KUB: Nonobstructive bowel gas pattern. Hospital Course (1) Influenza A: (2) Generalized weakness: Patient is a 63 yr female who presents with weakness, non-productive cough and was found to have Influenza A. Infleunza A CXR:No acute cardiopulmonary findings. Continue Tamiflu Day #3 Supplemental O2 as needed PT/OT eval Has Home Health in place (3) Diarrhea: Stool for C diff: Negative Stool culture:Negative Monitor electrolytes (4) History of CVA with residual deficit: H/o L MCA stroke during attempted L SCA stenting. Has residual aphasia and R-sided weakness Continue aspirin,plavix, statin (5) DM type 2 (diabetes mellitus, type 2): Last Hb A1c of 6.4 in Jun 2018 Hold home medications Continue ISS, basal Insulin Monitor BGs (6) Vascular disease: H/o failed L SCA angioplasty /stent from brachial artery in Jul 2017. Medical management, follow up with Dr. Prado in 6 months Continue aspirin, plavix, statin (7) Hypertension: Continue Losartan (8) Hypothyroidism: Continue levothyroxine (9) Mood disorder: Continue Mirtazapine, trazodone, venlafaxine (10) CREST syndrome: Has some chronic skin lesions. (11) Marijuana use: Smokes weekly Advised cessation (12) DJD (degenerative joint disease), lumbar: Continue Lyrica DVT Px: SQ Lovenox Code status: FULL Total Time Total Time Spent Total Time Spent (In Minutes): 37 minutes Total Time Includes: Examination of the Patient, Discharge Planning, Medication Reconciliation and Other Discharge Plan Discharge Items Patient Disposition: Home - Self-Care Reason For Visit: INFLUENZA A,GENERALIZED WEAKNESS Discharge Diagnosis: Influenza A Discharge Goals: Decrease discomfort, Improve disease control and Improve function Activity: Resume your previous activity Exercise/Sports: Gradually increase as tolerated Non-emergency contact: Primary Care Provider Call non-emergency contact if: you have any medication questions, your symptoms worsen, your pain is not controlled, your pain is worsening, your pain is unusual for you, your pain is concerning for you and you have a fever Diet: Carb Consistent or DM2 and Heart Healthy Addtl Provider Instructions: Follow up with your PCP on September 17, 2018 at 1:45pm Complete the Tamiflu course as prescribed Seek immediate medical attention if your symptoms reoccur or worsen Prescriptions: New oseltamivir [Tamiflu] 75 mg Capsule 75 mg PO BID Qty: 5 RF: 0 Continued multivitamin Tablet 1 tab PO QAM RF: 0 atorvastatin 80 mg Tablet 80 mg PO HS RF: 0 venlafaxine 75 mg Tablet 75 mg PO QAM RF: 0 trazodone 50 mg Tablet 50 mg PO HS PRN (Reason: Pain) RF: 0 docusate calcium [Stool Softener] 240 mg Capsule 240 mg PO DAILY PRN (Reason: Constipation) RF: 0 donepezil 10 mg Tablet 10 mg PO HS RF: 0 clopidogrel 75 mg Tablet 75 mg PO QAM RF: 0 aspirin [Aspirin Low Dose] 81 mg Tablet,Delayed Release (Dr/Ec) 81 mg PO QAM RF: 0 levothyroxine 88 mcg Tablet 88 mcg PO QAM RF: 0 mirtazapine 30 mg Tablet 30 mg PO HS RF: 0 ferrous sulfate 325 mg (65 mg iron) Tablet 325 mg PO QAM RF: 0 esomeprazole magnesium 40 mg Capsule,Delayed Release(Dr/Ec) 40 mg PO QAM RF: 0 ropinirole 0.5 mg Tablet 0.5 mg PO HS RF: 0 losartan 25 mg Tablet 25 mg PO QAM RF: 0 bisacodyl [Dulcolax (bisacodyl)] 5 mg Tablet,Delayed Release (Dr/Ec) 5 mg PO HS PRN (Reason: Constipation) RF: 0 metformin 500 mg Tablet Extended Release 24 Hr 1,500 mg PO BIDM RF: 0 loratadine [Claritin] 10 mg Tablet 10 mg PO HS RF: 0 ezetimibe 10 mg Tablet 10 mg PO QAM RF: 0 pregabalin [Lyrica] 100 mg Capsule 100 mg PO BIDM RF: 0 cholecalciferol (vitamin D3) [Vitamin D3] 1,000 unit Tablet 1,000 unit PO QAM RF: 0 insulin glargine 100 unit/mL (3 mL) insulin pen 55 unit subcut QAM RF: 0 albuterol sulfate [ProAir RespiClick] 90 mcg/actuation Aerosol Powdr Breath Activated 2 inh INHALATION QID RF: 0 Stand-Alone Forms: [facility], [facility] Discharge Orders: Discharge Order (Routine); Ordered 09/12/18 Ordered By: Micah Bermudez Admission Data Admit Date/Time: 09/10/18 16:42 Attending Provider: Micah Bermudez Admit Provider: Oseas Blevins Primary Care Provider: Oseas Macdonald Other Providers: Oseas Blevins ; Don Baig Service: Telemetry Other Interventions: Discharge Summary Assessment (RN) Last Done: 09/12/18 14:25 DC Date/Time DO NOT enter until pt leaves facility: 09/12/18 15:19
[2018-09-12] MEDS ORDERED: OSELTAMIVIR PHOSPHATE 75 MG CAP PO SCH (21:00)
== END 2018-09-12 15:19 | disposition home or self-care (01) | DRG 194 ==
LOC: ED 13:24 → 2W 16:42 → SUATTDRO 16:42 → 2W 17:00

== ENCOUNTER 2019-05-23 11:34 | Inpatient (IN) ==
[2019-05-23 12:02] LABS: Basophils # (auto) 0.03 K/uL (0-0.2); Basophils % (auto) 0.3 %; Eosinophils # (auto) 0.05 K/uL (0-0.5); Eosinophils % (auto) 0.4 %; Hematocrit (blood only) 28.3 % (37-47); Hemoglobin 8.7 g/dL (12.0-16.0); Immature Granulocytes # (auto) 0.08 K/uL (0.00-0.02); Immature Granulocytes % (auto) 0.7 %; Lymphocytes # (auto) 1.95 K/uL (1.2-3.4); Lymphocytes % (auto) 17.1 %; Mean Corpuscular Hemoglobin 29.4 pg (25-34); Mean Corpuscular Hgb Conc 30.7 g/dL (32-36); Mean Corpuscular Volume 95.6 fL (80-100); Mean Platelet Volume 9.4 fL (7.4-10.4); Monocytes % (auto) 7.9 %; Neutrophils % (auto) 73.6 %; Nucleated RBC % (auto) 0.9 %; Platelet Count 510 K/uL (130-400); RDW Coefficient of Variation 17.6 % (11.5-14.5); RDW Standard Deviation 59.2 fL (36.4-46.3); Red Blood Count 2.96 M/uL (4.2-5.4); White Blood Count 11.41 K/uL (4.8-10.8)
--- NOTE | 2019-05-23 12:03 | XRay Report ---
XR chest 1V portable HISTORY: 64 years-old Female weakness acute weakness COMPARISON: Chest radiograph 05/12/2019 TECHNIQUE: Portable AP view of the chest FINDINGS: Cardiomediastinal and hilar silhouettes are within normal limits. Minimal left basilar opacities sugg est summation density with atelectasis. There is no pneumothorax, pleural effusion, or overt pulmonar y edema. Degenerative changes of the shoulders and spine. Fusion hardware of the cervical spine. IMPRESSION: No acute process. The above report was generated using voice recognition software. It may contain grammatical, syntax o r spelling errors. Electronically signed by: Magan Gonzalez M.D. 05/23/2019 12:02 PM
--- NOTE | 2019-05-23 12:11 | Emergency Department Note ---
Entered by Mau Arambula acting as a scribe for Darryl Mei DO History of Present Illness General Chief complaint: Abnormal Labs/Diagnostic Testing Time Seen by Provider: 05/23/19 11:36 Source: patient and EMS History of Present Illness Onset (ago): day(s) (several) Location: left and right Pain Consistency: + constant Quality: + other (generalized weakness) Associated symptoms: + other (+low hemoglobin; -abdominal pain; -black/bloody stool ) The patient is a 64 year old female, with past medical history of diabetes, hypertension, and CVA, who presents to the Emergency Room with complaints of constant generalized weakness over the last several days. According to EMT, recent lab results for the patient has showed that the patient has had a recent drop in hemoglobin levels. They notes the patient's hemoglobin was 10 on May 04, and then 8 two days ago. The patient denies abdominal pain or black/bloody stool. Home Medications Home Medications Medication Instructions Recorded Confirmed Type ProAir RespiClick 2 inh INHALATION QID 07/14/18 05/23/19 History aspirin [Aspirin Low Dose] 81 mg PO QAM 07/14/18 05/23/19 History atorvastatin 80 mg PO HS 07/14/18 05/23/19 History bisacodyl [Dulcolax (bisacodyl)] 5 mg PO HS PRN 07/14/18 05/23/19 History clopidogrel 75 mg PO QAM 07/14/18 05/23/19 History docusate calcium [Stool Softener] 240 mg PO DAILY PRN 07/14/18 05/23/19 History donepezil 10 mg PO HS 07/14/18 05/23/19 History esomeprazole magnesium 40 mg PO QAM 07/14/18 05/23/19 History ezetimibe 10 mg PO QAM 07/14/18 05/23/19 History ferrous sulfate 325 mg PO QAM 07/14/18 05/23/19 History levothyroxine 88 mcg PO QAM 07/14/18 05/23/19 History loratadine [Claritin] 10 mg PO HS 07/14/18 05/23/19 History losartan 25 mg PO QAM 07/14/18 05/23/19 History metformin 1,500 mg PO QAM 07/14/18 05/23/19 History mirtazapine 30 mg PO HS 07/14/18 05/23/19 History ropinirole 0.5 mg PO HS 07/14/18 05/23/19 History trazodone 50 mg PO HS PRN 07/14/18 05/23/19 History venlafaxine 75 mg PO QAM 07/14/18 05/23/19 History cholecalciferol (vitamin D3) 2,000 unit PO QAM 05/12/19 05/23/19 History [Vitamin D3] insulin glargine [Basaglar KwikPen 36 unit SUBCUT QAM 05/12/19 05/23/19 History U-100 Insulin] Allergies Allergy/AdvReac Type Severity Reaction Status Date / Time clarithromycin AdvReac Unknown FEEL WEIRD Verified 05/23/19 12:32 Past Med/Surg History Medical History History of stroke (Chronic) Hypertension (Chronic) Vascular disease (Chronic) Mood disorder (Chronic) Marijuana use (Chronic) History of CVA with residual deficit (Chronic) H/o L MCA stroke during attempted L SCA stenting. Has residual dysphagia Anemia (Chronic) CREST syndrome (Chronic) PVD (peripheral vascular disease) (Chronic) Hypothyroidism (Chronic) DM type 2 (diabetes mellitus, type 2) (Chronic) DJD (degenerative joint disease), lumbar (Chronic) Hyperlipidemia (Chronic) Carotid stenosis (Chronic) Right carotid artery 70 to 90% stenosis of internal carotid, left carotid artery 50 to 69% Esophagitis (Chronic) Gastroparesis (Chronic) Iron deficiency anemia (Chronic) Surgical History S/P appendectomy (Resolved 10/11/12) History of spinal fusion (Resolved) History of hysterectomy (Resolved) H/O foot surgery (Resolved) Family History Mother Breast cancer Uterine cancer Father Lung cancer Emphysema/COPD Social History Preferred Language: Trinidadian Communication Ability: Effective Electrical Tester Battery Required: No Beliefs That Will Affect Care: None Current Living Situation: Alone Other Information That Helps Us Care for You: No Feels Safe at Home: Yes Safety Concerns: Feels Safe At This Time Smoking Status: Former smoker Smoking End Date: 2011 ; Second Hand Exposure: Yes ; Tobacco Cessation Education Requested by Patient: No Hx Alcohol Use: Yes Alcohol type: hard liquor Hx Substance Use: Yes substance use type: marijuana Substance Use Type Other:: Smokes a bowl each weekly. Last smoked 1 week ago Last Used Substance: Days (ago) Last Used Substance Other:: 4-5 months. Review of Systems See HPI for pertinent positives & negatives. and A total of 10 systems reviewed and were otherwise negative Physical Exam Vital Signs Vital Signs - 24 hr 05/23/19 11:49 05/23/19 14:36 Temperature 36.4 C L Temperature Source Oral Sepsis Recent Fever Within 48 Hours No Sepsis New/Unexplained Change in Mental Status No Sepsis Action Taken by Nursing No Action Required Pulse Rate - Lying 96 H Pulse Rate - Sitting 104 H Pulse Rate 91 H Respiratory Rate 20 Respiratory Effort / Characteristics Non-Labored Spontaneous Respiratory Depth Normal Respiratory Pattern Regular Blood Pressure - Lying 112/63 Blood Pressure - Sitting 131/71 Blood Pressure 166/95 H Blood Pressure Mean 118 Pulse Oximetry 97 Oxygen Delivery Method Room Air GENERAL: Patient is awake and alert. She is mildly anxious appearing but overall comfortable. EYES: The conjunctivae are clear. The pupils are round and reactive. EARS, NOSE, MOUTH AND THROAT: The nose is without any evidence of any deformity. Mucous membranes are moist tongue is midline NECK: The neck is nontender and supple. RESPIRATORY: Normal respiratory effort is noted there is no evidence of wheezing rhonchi or rales CARDIOVASCULAR: Regular rate and rhythm noted there no murmurs rubs or gallops normal S1 normal S2 GASTROINTESTINAL: The abdomen is soft. Bowel sounds are present in all quadrants. Abdomen is nontender MUSCULOSKELETAL/EXTREMITIES: There is no evidence of gross deformity full range of motion is noted in the hips and shoulders RECTAL: Brown stool, heme negative. SKIN: There is no obvious evidence of any rash. There are no petechiae, pallor or cyanosis noted. NEUROLOGIC: Patient is awake alert and oriented x3 strength is symmetric patellar reflexes are 2+ bilaterally Course 1136: Past medical records reviewed. The patient was evaluated in room A3. A com plete history and physical exam was performed. 1238: Rectal exam revealed brown stool that was heme negative. 1347: I reviewed the patient's case with Marline Ireland. Dr. Mir-Yogi Ireland will evaluate the patient for further management. Consultations Consultation #1: I reviewed the patient's case with Marline Ireland. Dr. Darell Ireland will evaluate the patient for further management. Time: 13:47 Administered Medications Dextrose (Dextrose 50%) 25 - 50 ml IV UD PRN; Protocol PRN Reason: Hypoglycemia Protocol Stop: 06/22/19 15:57 Last Admin: 05/23/19 16:56 Dose: 50 ml Documented by: [id number] Glucose (Dex4 Glucose) 4 - 8 tabs PO UD PRN; Protocol PRN Reason: Hypoglycemia Protocol Stop: 06/22/19 15:57 Last Admin: 05/23/19 16:32 Dose: 4 tabs Documented by: [id number] Sodium Chloride (Nss 1000ml) 1,000 mls @ 60 mls/hr IV .[id number] OLIMPIA Stop: 06/22/19 16:14 Last Admin: 05/23/19 16:25 Dose: 80 mls/hr Documented by: [id number] Pantoprazole Sodium 40 mg/ (Dextrose) 100 mls @ 20 mls/hr IV Q5H [place] Stop: 06/22/19 16:59 Last Admin: 05/23/19 17:32 Dose: 20 mls/hr Documented by: [id number] Insulin Aspart (Novolog Flexpen) 0 units SC ACHS OLIMP[place] Stop: 06/22/19 16:29 Last Admin: 05/23/19 16:34 Dose: Not Given Documented by: [id number] Cosigned by: [id number] Discontinued Medications Pantoprazole Sodium 80 mg/ (Dextrose) 120 mls @ 480 mls/hr IV 1700 ONE Stop: 05/23/19 17:14 Last Infusion: 05/23/19 17:50 Dose: 0 mls/hr Documented by: [id number] Admin: 05/23/19 17:32 Dose: 480 mls/hr Documented by: [id number] Medical Decision Making Differential Diagnosis Differential diagnosis: Etiologies such as metabolic, infection, hypo/hyperglycemia, electrolyte abnormalities, cardiac sources, intracerebral event, toxicologic, neurologic, as well as others were entertained. Medical Records Attestation: I reviewed the patient's medical records. Home Medications Current Medication List: was personally reviewed by dc Laboratory Data Attestation: I reviewed the patient's lab results. Result diagrams: 05/23/19 11:41 05/23/19 11:41 Lab Results 05/23/19 05/23/19 05/23/19 Range/Units 11:41 11:41 11:41 WBC 11.41 H (4.8-10.8) K/uL RBC 2.96 L (4.2-5.4) M/uL Hgb 8.7 L (12.0-16.0) g/dL Hct 28.3 L (37-47) % MCV 95.6 (80-100) fL MCH 29.4 (25-34) pg MCHC 30.7 L (32-36) g/dL RDW Std Deviation 59.2 H (36.4-46.3) fL RDW Coeff of Jj 17.6 H (11.5-14.5) % Plt Count 510 H (130-400) K/uL MPV 9.4 (7.4-10.4) fL Immature Gran % (Auto) 0.7 % Neut % (Auto) 73.6 % Lymph % (Auto) 17.1 % Saunders % (Auto) 7.9 % Eos % (Auto) 0.4 % Baso % (Auto) 0.3 % Reticulocyte % (Auto) 7.9 H (0.5-2.0) % Immature Gran # (Auto) 0.08 H (0.00-0.02) K/uL Neut # (Auto) 8.40 H (1.4-6.5) K/uL Lymph # (Auto) 1.95 (1.2-3.4) K/uL Saunders # (Auto) 0.90 H (0.11-0.59) K/uL Eos # (Auto) 0.05 (0-0.5) K/uL Baso # (Auto) 0.03 (0-0.2) K/uL Reticulocyte # 0.23 H (0.02-0.10) 10^6/uL Absolute Nucleated RBC 0.10 H (0-0) K/uL Nucleated RBC % (auto) 0.9 % Polychromasia 1+ Hypochromasia Present Immature Retic Fraction 29.3 H (3.0-15.9) % Retic Hgb Content 29.0 (28.2-36.6) pg PT 10.5 (9.0-12.0) Seconds INR 1.0 (0.9-1.1) APTT 22.8 (21.0-31.0) Seconds PTT Ratio 0.8 Sodium (136-145) mmol/L Potassium (3.5-5.1) mmol/L Chloride (98-107) mmol/L Carbon Dioxide (21-32) mmol/L Anion Gap (3-11) BUN (7-18) mg/dl Creatinine (0.6-1.2) mg/dl Est Cr Clr Drug Dosing ml/min Est GFR ( Amer) Est GFR (Non-Af Amer) BUN/Creatinine Ratio (10-20) Glucose (70-99) mg/dl Calcium (8.5-10.1) mg/dl Magnesium (1.8-2.4) mg/dl Iron (35-150) mcg/dl TIBC (250-450) mcg/dl Transferrin (200-360) mg/dl Ferritin (8-388) ng/ml Total Bilirubin (0.2-1) mg/dl AST (15-37) U/L ALT (12-78) U/L Alkaline Phosphatase (45-117) U/L Troponin I (0-0.045) ng/ml Total Protein (6.4-8.2) gm/dl Albumin (3.4-5.0) gm/dl Globulin (2.5-4.0) gm/dl Albumin/Globulin Ratio (0.9-2) TSH (0.300-4.500) uIu/ml Free T4 (0.8-1.6) ng/dl Urine Color Urine Appearance (Clear) Urine pH (4.5-7.5) Ur Specific [place] (1.000-1.030) Urine Protein (Negative) Urine Glucose (UA) (Negative) Urine Ketones (Negative) Urine Blood (Negative) Urine Nitrite (Negative) Urine Bilirubin (Negative) Urine Urobilinogen (Negative) Ur Leukocyte Esterase (Negative) Urine WBC (Auto) (0-5) /hpf Urine RBC (Auto) (0-4) /hpf U Hyaline Cast (Auto) (0-5) /lpf U Epithel Cells (Auto) (0-5) /lpf Urine Bacteria (Auto) (Negative) Blood Type A Negative Antibody Screen NEGATIVE Crossmatch See Detail 05/23/19 05/23/19 05/23/19 Range/Units 11:41 11:41 13:00 WBC (4.8-10.8) K/uL RBC (4.2-5.4) M/uL Hgb (12.0-16.0) g/dL Hct (37-47) % MCV (80-100) fL MCH (25-34) pg MCHC (32-36) g/dL RDW Std Deviation (36.4-46.3) fL RDW Coeff of Jj (11.5-14.5) % Plt Count (130-400) K/uL MPV (7.4-10.4) fL Immature Gran % (Auto) % Neut % (Auto) % Lymph % (Auto) % Saunders % (Auto) % Eos % (Auto) % Baso % (Auto) % Reticulocyte % (Auto) (0.5-2.0) % Immature Gran # (Auto) (0.00-0.02) K/uL Neut # (Auto) (1.4-6.5) K/uL Lymph # (Auto) (1.2-3.4) K/uL Saunders # (Auto) (0.11-0.59) K/uL Eos # (Auto) (0-0.5) K/uL Baso # (Auto) (0-0.2) K/uL Reticulocyte # (0.02-0.10) 10^6/uL Absolute Nucleated RBC (0-0) K/uL Nucleated RBC % (auto) % Polychromasia Hypochromasia Immature Retic Fraction (3.0-15.9) % Retic Hgb Content (28.2-36.6) pg PT (9.0-12.0) Seconds INR (0.9-1.1) APTT (21.0-31.0) Seconds PTT Ratio Sodium 135 L (136-145) mmol/L Potassium 4.2 (3.5-5.1) mmol/L Chloride 102 (98-107) mmol/L Carbon Dioxide 25 (21-32) mmol/L Anion Gap 8.0 (3-11) BUN 14 (7-18) mg/dl Creatinine 0.89 (0.6-1.2) mg/dl Est Cr Clr Drug Dosing 54.9 ml/min Est GFR ( Amer) 79.4 Est GFR (Non-Af Amer) 68.5 BUN/Creatinine Ratio 16.3 (10-20) Glucose 94 (70-99) mg/dl Calcium 9.1 (8.5-10.1) mg/dl Magnesium 2.2 (1.8-2.4) mg/dl Iron 347 H (35-150) mcg/dl TIBC 370 (250-450) mcg/dl Transferrin 257 (200-360) mg/dl Ferritin 20.3 (8-388) ng/ml Total Bilirubin 0.4 (0.2-1) mg/dl AST 29 (15-37) U/L ALT 25 (12-78) U/L Alkaline Phosphatase 102 (45-117) U/L Troponin I < 0.015 (0-0.045) ng/ml Total Protein 7.9 (6.4-8.2) gm/dl Albumin 3.8 (3.4-5.0) gm/dl Globulin 4.1 H (2.5-4.0) gm/dl Albumin/Globulin Ratio 0.9 (0.9-2) TSH 0.081 L (0.300-4.500) uIu/ml Free T4 1.32 (0.8-1.6) ng/dl Urine Color Yellow Urine Appearance Cloudy A (Clear) Urine pH 5.5 (4.5-7.5) Ur Specific [place] 1.017 (1.000-1.030) Urine Protein Negative (Negative) Urine Glucose (UA) Negative (Negative) Urine Ketones Negative (Negative) Urine Blood 2+ H (Negative) Urine Nitrite Negative (Negative) Urine Bilirubin Negative (Negative) Urine Urobilinogen Negative (Negative) Ur Leukocyte Esterase 1+ H (Negative) Urine WBC (Auto) 10-30 H (0-5) /hpf Urine RBC (Auto) 10-30 H (0-4) /hpf U Hyaline Cast (Auto) 1-5 (0-5) /lpf U Epithel Cells (Auto) >30 H (0-5) /lpf Urine Bacteria (Auto) Negative (Negative) Blood Type Antibody Screen Crossmatch Imaging Data Radiologist's Impression: Radiology results as stated below per my review and the radiologist's interpretation: XR chest 1V portable HISTORY: 64 years-old Female weakness acute weakness COMPARISON: Chest radiograph 05/12/2019 TECHNIQUE: Portable AP view of the chest FINDINGS: Cardiomediastinal and hilar silhouettes are within normal limits. Minimal left basilar opacities suggest summation density with atelectasis. There is no pneumothorax, pleural effusion, or overt pulmonary edema. Degenerative changes of the shoulders and spine. Fusion hardware of the cervical spine. IMPRESSION: No acute process. The above report was generated using voice recognition software. It may contain grammatical, syntax or spelling errors. Electronically signed by: Magan Gonzalez M.D. 05/23/2019 12:02 PM ECG Data Attestation: I personally reviewed and interpreted this ECG as follows: Indication: + weakness Rate (beats per minute): 92 Rhythm: + normal sinus ECG ST segments: + ST depression ECG Findings: no PACs and no PVCs Comparison ECG Date: from (05/12/19) Change: no significant change Blood Pressure Blood Pressure Findings: Elevated blood pressure Blood Pressure Disposition: further management by hospitalist MDM Narrative The patient is a 64-year-old female who presented to the emergency department for an evaluation of generalized weakness. The patient is being followed by her primary care physician for a dropping hemoglobin. The patient has had similar symptoms in the past. The patient has had near syncope. She was not found to have heme positive stool in the emergency department. I discussed the patient's laboratory and radiographic studies with her. Given the degree of her symptoms I discussed her case with the on-call [facility] hospitalist group. They have agreed to evaluate the patient in the emergency department for further management disposition. The patient was agreeable to this plan. Impression & Plan Weakness, Anemia, Syncope, Abnormal ECG Discharge Plan Visit Data *Final* Discharge Date/Time: 05/23/19 15:17 Chief Complaint: Abnormal Labs/Diagnostic Testing ED Provider: Darryl Mei Discharge Problem: Weakness, Anemia, Syncope, Abnormal ECG Patient Disposition: Admitted As Inpatient Discharge Instructions Interventions: ED Discharge Assessment Last Done: 05/23/19 15:17 The scribe's documentation has been prepared under my direction and personally reviewed by me in its entirety. I confirm that the note above accurately reflects all work, treatment, procedures, and medical decision making performed by me.
[2019-05-23 12:14] LABS: Partial Thromboplastin Ratio 0.8; Partial Thromboplastin Time 22.8 Seconds (21.0-31.0); Prothrombin Time 10.5 Seconds (9.0-12.0)
[2019-05-23 12:30] LABS: Alanine Aminotransferase 25 U/L (12-78); Albumin Level 3.8 gm/dl (3.4-5.0); Aspartate Aminotransferase 29 U/L (15-37); BUN Creatinine Ratio 16.3 (10-20); Blood Urea Nitrogen 14 mg/dl (7-18); Calcium 9.1 mg/dl (8.5-10.1); Carbon Dioxide 25 mmol/L (21-32); Chloride 102 mmol/L (98-107); Creatinine Clr Calc Pharmacy 54.9 ml/min; Est GFR (African American) 79.4; Est GFR (Non-African American) 68.5; Glucose 94 mg/dl (70-99); Magnesium 2.2 mg/dl (1.8-2.4); Potassium 4.2 mmol/L (3.5-5.1); Sodium 135 mmol/L (136-145)
[2019-05-23 12:42] LABS: Albumin Globulin Ratio 0.9 (0.9-2); Alkaline Phosphatase 102 U/L (45-117); Bilirubin,Total 0.4 mg/dl (0.2-1); Globulin 4.1 gm/dl (2.5-4.0); Thyroid Stimulating Hormone 0.081 uIu/ml (0.300-4.500); Total Protein 7.9 gm/dl (6.4-8.2); Troponin I < 0.015 ng/ml (0-0.045)
[2019-05-23 12:57] LABS: T4 Free Thyroxine 1.32 ng/dl (0.8-1.6)
[2019-05-23 13:20] LABS: Appearance Urine Cloudy (Clear); Bacteria Urine Automated Negative (Negative); Bilirubin Urine Negative (Negative); Blood Urine 2+ (Negative); Color Urine Yellow; Epithelial Cell Urine Auto >30 /lpf (0-5); Glucose Urine UA Negative (Negative); Ketones Urine Negative (Negative); Leukocyte Esterase Urine 1+ (Negative); Nitrite Urine Negative (Negative); Protein Urine Negative (Negative); Specific Gravity Urine 1.017 (1.000-1.030); Urobilinogen Urine Negative (Negative); pH Urine 5.5 (4.5-7.5)
--- NOTE | 2019-05-23 15:01 | History & Physical Report ---
Date of Service May 23, 2019 Assessment & Plan (1) Symptomatic anemia: This is a 64-year-old female who has significant PMH of T2DM insulin dep, hx of CVA with residual aphasia/R sided weakness, carotid artery stenosis, L subclavian occlusion, HTN, HLD, COPD, Hypothyroidism, GERD, Scleroderma/CREST syn, Mood disorder, Depression with anxiety who presents to [facility] ED secondary to overall feeling weak and nauseous prior to arrival. In ED patient was hypertensive and tachycardic. She was otherwise afebrile and saturating well on room air. Her orthostatics were as follows lying BP 112/63, pulse 96; sitting BP 131/71, pulse 104, she did not tolerate standing secondary to lightheadedness. Her H&H was 8.7/28.3, WBC 11.41, platelet 510. CMP was relatively unremarkable, TSH mildly low 0.081, normal free T4. Troponin undetectable. Chest x-ray: Revealed no acute process Urinalysis: +2 RBC, +1 Leukocytes, numerous epithelial cells, negative bacteria. She was referred for admission due to persistent weakness, lives alone at home and symptomatic anemia. admit to PCU transfuse 1 unit PRBC - per blood bank pt with very rare blood antigen; therefore no PRBC can be on hold repeat iron studies (outpt 05/14 revealed Ferritin 23.8, iron 48, TIBC 333, Tsat 14%) peripheral smear path consult outpt vaginal bleeding workup complete - felt not to be source of bleeding on ASA/Plavix for hx of CVA and carotid artery stenosis No hx of EGD/Colonoscopy - given hx of unexplained anemia (iron studies on low side of normal) - will consult GI FOBT negative outpt, will repeat continue oral iron supplement will need to get therapy services involved once more stable (2) Generalized weakness: likely secondary to symptomatic anemia as above (3) DM type 2 (diabetes mellitus, type 2): Last A1C 5.4 will repeat A1C prior to transfusion Pt on Insulin/Metformin regimen as outpt Lantus/Novolog per sliding scale would recommend looser control given pt age and co morbidities to prevent hypoglycemia (4) Hypothyroidism: TSH low at 0.081, but Free T4 WNL continue levothyroxine (5) Hypertension: blood pressure elevated in ED pt on losartan as outpt monitor - if remains elevated consider titrating losartan (6) Hyperlipidemia: continue statin (7) Carotid stenosis: hold asa/plavix for now until anemia explained continue statin (8) History of stroke: Patient with residual a aphasia, right upper and lower extremity weakness On ASA, Plavix, statin as outpatient Hold ASA and Plavix for now until anemia explained (9) Mood disorder: mood stable continue venlafaxine, mirtazapine, trazodone (10) CREST syndrome: supportive care (11) Microscopic hematuria: Noted on urinalysis Recommend repeat or follow-up as outpatient (12) DVT prophylaxis: SCD/TEDS Disposition: admit to PCU, case management consulted, Pt lives home alone may require rehab placement Follow up: PCP Dr. Macdonald upon discharge Pt was seen and examined in collaboration with Dr. Mir, please see addendum Starting 05/24/19 pt will be under the care of Dr. Moreno History of Present Illness Chief Complaint: Nausea and weakness prior to arrival. Primary Care Provider: Oseas Macdonald MD This is a 64-year-old female who has significant PMH of T2DM insulin dep, hx of CVA with residual aphasia/R sided weakness, carotid artery stenosis, L subclavian occlusion, HTN, HLD, COPD, Hypothyroidism, GERD, Scleroderma/CREST syn, Mood disorder, Depression with anxiety who presents to [facility] ED secondary to overall feeling weak and nauseous prior to arrival. She was further contacted by her PCP secondary to abnormal blood work including a hemoglobin of 8.7 which is decreased from 10.2 - 1 week prior. Over the past 2 weeks she admits to intermittent nausea. She had one episode of brown emesis this morning. She further elicits to being very lightheaded with standing. She denies any other recent illness, fever, chills, sweats, syncope, chest pain, shortness of breath, FLORES, palpitations, hemoptysis, URI symptoms or cough, abdominal pain, diarrhea, melena, hematochezia, dysuria, increased urgency or frequency with urination, hematuria. Per outpatient records she did have evaluation on 05/21 by [employer] due to reports of postmenopausal vaginal bleeding. She has been postmenopausal for approximately 30 years. Per report she was having 2 months of intermittent vaginal bleeding. Pt currently denies this. She has transvaginal U/S which was negative. She further underwent endometrial biopsy which was negative as well. She had iron panel done on 05/14 which revealed ferritin 23.8, iron 48, saturation 14%, TIBC 333, folic acid 17.2, vitamin B12 772. She has been placed on oral ferrous sulfate. She denies any history of EGD or colonoscopy in the past. She is currently on Plavix and aspirin therapy secondary to history of CVA and carotid artery stenosis. In ED patient was hypertensive and tachycardic. She was otherwise afebrile and saturating well on room air. Her orthostatics were as follows lying BP 112/63, pulse 96; sitting BP 131/71, pulse 104, she did not tolerate standing secondary to lightheadedness. Her hemoglobin and hematocrit 30.7 and 20.3, WBC 11.41, platelet 510. Her CMP was relatively unremarkable, TSH mildly low 0.081, normal free T4. Troponin undetectable. Chest x-ray: Revealed no acute process Urinalysis: +2 RBC, +1 Leukocytes, numerous epithelial cells, negative bacteria. She was referred for admission due to persistent weakness, lives alone at home and symptomatic anemia. Allergies Allergy/AdvReac Type Severity Reaction Status Date / Time clarithromycin AdvReac Unknown FEEL WEIRD Verified 05/23/19 12:32 Home Medications Home Medications Medication Instructions Recorded Confirmed Type ProAir RespiClick 2 inh INHALATION QID 07/14/18 05/23/19 History aspirin [Aspirin Low Dose] 81 mg PO QAM 07/14/18 05/23/19 History atorvastatin 80 mg PO HS 07/14/18 05/23/19 History bisacodyl [Dulcolax (bisacodyl)] 5 mg PO HS PRN 07/14/18 05/23/19 History clopidogrel 75 mg PO QAM 07/14/18 05/23/19 History docusate calcium [Stool Softener] 240 mg PO DAILY PRN 07/14/18 05/23/19 History donepezil 10 mg PO HS 07/14/18 05/23/19 History esomeprazole magnesium 40 mg PO QAM 07/14/18 05/23/19 History ezetimibe 10 mg PO QAM 07/14/18 05/23/19 History ferrous sulfate 325 mg PO QAM 07/14/18 05/23/19 History levothyroxine 88 mcg PO QAM 07/14/18 05/23/19 History loratadine [Claritin] 10 mg PO HS 07/14/18 05/23/19 History losartan 25 mg PO QAM 07/14/18 05/23/19 History metformin 1,500 mg PO QAM 07/14/18 05/23/19 History mirtazapine 30 mg PO HS 07/14/18 05/23/19 History ropinirole 0.5 mg PO HS 07/14/18 05/23/19 History trazodone 50 mg PO HS PRN 07/14/18 05/23/19 History venlafaxine 75 mg PO QAM 07/14/18 05/23/19 History cholecalciferol (vitamin D3) 2,000 unit PO QAM 05/12/19 05/23/19 History [Vitamin D3] insulin glargine [Basaglar KwikPen 36 unit SUBCUT QAM 05/12/19 05/23/19 History U-100 Insulin] Past Med/Surg History Medical History History of stroke (Chronic) Hypertension (Chronic) Vascular disease (Chronic) Mood disorder (Chronic) Marijuana use (Chronic) History of CVA with residual deficit (Chronic) H/o L MCA stroke during attempted L SCA stenting. Has residual dysphagia Anemia (Chronic) CREST syndrome (Chronic) PVD (peripheral vascular disease) (Chronic) Hypothyroidism (Chronic) DM type 2 (diabetes mellitus, type 2) (Chronic) DJD (degenerative joint disease), lumbar (Chronic) Hyperlipidemia (Chronic) Carotid stenosis (Chronic) Right carotid artery 70 to 90% stenosis of internal carotid, left carotid artery 50 to 69% Esophagitis (Chronic) Gastroparesis (Chronic) Iron deficiency anemia (Chronic) Surgical History S/P appendectomy (Resolved 10/11/12) History of spinal fusion (Resolved) History of hysterectomy (Resolved) H/O foot surgery (Resolved) Family History Mother Breast cancer Uterine cancer Father Lung cancer Emphysema/COPD Social History Preferred Language: Bolivian Communication Ability: Effective Reconciliation Specialist Required: No Beliefs That Will Affect Care: None Current Living Situation: Alone Other Information That Helps Us Care for You: No Feels Safe at Home: Yes Safety Concerns: Feels Safe At This Time Smoking Status: Former smoker Smoking End Date: 2011 ; Second Hand Exposure: Yes ; Tobacco Cessation Education Requested by Patient: No Hx Alcohol Use: Yes Alcohol type: hard liquor Hx Substance Use: Yes substance use type: marijuana Substance Use Type Other:: Smokes a bowl each weekly. Last smoked 1 week ago Last Used Substance: Days (ago) Last Used Substance Other:: 4-5 months. Review of Systems Review of Systems: All systems reviewed & are unremarkable except as noted in HPI & below Physical Exam Physical Exam: Constitutional: Petite, thin, female, appears older than stated age, pale, vitals as above, NAD, sitting up in bed, pleasant, conversing easily, mild dysarthria Head: Normocephalic, Atraumatic Eyes: PERRL, conjunctivae normal, anicteric sclerae ENMT: external ear and nose normal, oropharynx normal Neck: trachea midline, no thyromegaly normal visual inspection Respiratory: normal respiratory effort, lungs clear to auscultation, no wheeze, rales, rhonchi. Normal insp/exp effort, no accessory muscle use Cardiovascular: Tachycardic rate, regular rhythm, no murmur, no edema Vessels: no JVD, bilateral carotid bruit Chest: normal inspection of chest Abdomen: normal bowel sounds, soft, nontender, no hepatosplenomegaly Musculoskeletal: no cyanosis or clubbing, extremities motor strength left upper and left lower extremity 5/5 ; right upper and right lower extremity 4/5 Skin: no rashes, warm and dry normal turgor Neurologic: PERRL, EOMI, accommodation nl, no face palsy, +dysarthria CN's II- XI intact bilaterally and moves all extremities Psychiatric: A+Ox3, euthymic affect Lymphatic: no cervical or axillary lymphadenopathy : deferred Results & Data Vital Signs (Past 12 Hours) Vital Signs Temp Pulse Resp BP Pulse Ox 05/23/19 11:49 36.4 C L 91 H 20 166/95 H 97 Laboratory Results Short CBC 05/23/19 05/23/19 Range/Units 11:41 11:41 WBC 11.41 H (4.8-10.8) K/uL Hgb 8.7 L (12.0-16.0) g/dL Hct 28.3 L (37-47) % Plt Count 510 H (130-400) K/uL Creatinine 0.89 (0.6-1.2) mg/dl BMP 05/23/19 11:41 Sodium 135 L Potassium 4.2 Chloride 102 Carbon Dioxide 25 BUN 14 Creatinine 0.89 Glucose 94 Calcium 9.1 Cardiac Enzymes 05/23/19 Range/Units 11:41 Troponin I < 0.015 (0-0.045) ng/ml Liver Function 05/23/19 Range/Units 11:41 Total Bilirubin 0.4 (0.2-1) mg/dl AST 29 (15-37) U/L ALT 25 (12-78) U/L Alkaline Phosphatase 102 (45-117) U/L Albumin 3.8 (3.4-5.0) gm/dl Urine 05/23/19 Range/Units 13:00 Urine Color Yellow Urine Appearance Cloudy A (Clear) Urine pH 5.5 (4.5-7.5) Ur Specific Groom 1.017 (1.000-1.030) Urine Protein Negative (Negative) Urine Glucose (UA) Negative (Negative) Diagnostic Findings CXR: IMPRESSION: No acute process. ECG Rhythm: normal sinus Findings: + T-wave inversion (Lead I ) and + prolonged QT (445ms) Code Status & VTE Plan Code Status Full Code VTE Prophylaxis Plan VTE Prophylaxis will be ordered: Yes Reason for no VTE drug order: Contraindicated Supervising Physician Co-Signing Physician Notes Attending Addendum: care coordinated with SERGIO Angulo notes please refer to her notes for full details, I agree with her notes patient seen and examined, records reviewed by myself as well on exam, patient seen resting in bed, comfortable, appears weak denies chest pain, dyspnea, dizziness states she just feels tired no abdominal pain, no melena/hematochezia no other symptoms VS noted and reviewed oriented x3 , not in distress, speaks in sentences with no effort nor accessory muscle use normal rate, regular rhythm, no murmurs clear breath sounds bilaterally non distended, soft, nontender no bipedal edema, erythema, warmth no neuro deficits WBC 11.4 Hg 8.7 Crea 0.89 ASSESSMENT AND PLAN SYMPTOMATIC ANEMIA- NORMOCYTIC NORMOCHROMIC - patient presents with weakness - increased retic, normal LDH, Iron low normal per outpatient labs last week doubt hemolysis but peripheral smear pending - possible Upper GI bleed in light of ASA and Plavix use- hold both for now (for carotid stenosis) - Protonix Drip, GI consulted, plan for EGD on Sunday unless with overt GI bleed or further decrease in Hg - Hg 8.7, maintain Hg >8 - Lyme screen ordered RARE BLOOD ANTIGEN - Blood Bank seeking assistance from [facility] to obtain blood for patient (to be on hold while patient admitted in case transfusion is required) - discussed with Dr. Kumar, Blood bank director- Coomb's test ordered- if positive, will need to discuss with Dr. Kumar before ordering blood transfusion other diagnoses and plan of care as per SERGIO Mir MD
[2019-05-23 15:22] LABS: Immature Retic Fraction 29.3 % (3.0-15.9); Reticulocyte % 7.9 % (0.5-2.0); Reticulocytes # 0.23 10^6/uL (0.02-0.10)
[2019-05-23 15:39] LABS: Ferritin 20.3 ng/ml (8-388)
[2019-05-23 15:41] LABS: Hypochromasia Present; Polychromasia 1+
--- NOTE | 2019-05-23 15:43 | Gastrointestinal Consultation ---
Date of Consultation May 23, 2019 Assessment & Plan (1) Anemia: Pt presents with worsening of chronic anemia w/o gross GI bleeding. IV BID PPI. Careful monitoring of stool outputs, emesis if occurs. Plan for EGD, colonoscopy on Sunday If any gross GI bleeding or if further, significant drop in Hb/Hct then will go forward with EGD over this weekend. Present on Admission?: Yes Supervising Physician Co-Signing Physician Notes I performed a history and physical examination of the patient, including specifically on physical exam - soft, nontender abdomen. I have discussed the patient's management with Gaye. Please refer to the nurse practitioner's note for the documented findings and plan of care. 64 years old female patient admitted with generalized weakness, noted with chronic anemia with slight drop in H/H, on ASA and Plavix, no overt or occult GI bleeding. I performed rectal exam and stool is dark green/brown, no melena. She is hemodynamically stable. No indication for urgent therapeutic endoscopy now but will benefit from EGD and colonoscopy on Sunday after bowel prep. If H/H drops or she has signs of overt bleeding, please recall GI for endoscopy over the weekend. Continue PPI for now. History of Present Illness Reason for Consultation: Unexplained iron def anemia, intermittent nausea Requesting Physician: Dr. Mir Attending Physician: Mike Mir MD History of Present Illness Ms. Mike Orona is a 64 yr old female pt of Dr. Macdonald with a hx of CVA, DM- 2, Hypothyroidism, hyperlipidemia, CREST and COPD. She presented to the ED for lightheadedness. On arrival, Hb 8.7 which is decreased from 10.0 on 05/15. MCV, BUN and INR are normal. Iron studies are pending. She denies any gross GI bleeding and has not had any abdominal pain. She has had nausea, "off and on," lasting a few days at a time, beginning about a week ago. She vomited once today, consisting of food and "brown" liquid. She reports passing a formed, brown BM every 3-4 days and denies feeling constipated. No recent change in stools. She is on Plavix, Omeprazole 40mg daily and takes one iron tab/day. She has been NPO today. Her most recent EGD was September 2016 for iron deficiency anemia with findings of chronic gastritis. On colonoscopy at the same time, there was one solitary ulcer at the IC valve, also internal hemorrhoids. Repeat colonoscopy in December 2016 with normal IC valve area. Allergies Allergy/AdvReac Type Severity Reaction Status Date / Time clarithromycin AdvReac Unknown FEEL WEIRD Verified 05/23/19 12:32 Home Medications Home Medications Medication Instructions Recorded Confirmed Type ProAir RespiClick 2 inh INHALATION QID 07/14/18 05/23/19 History aspirin [Aspirin Low Dose] 81 mg PO QAM 07/14/18 05/23/19 History atorvastatin 80 mg PO HS 07/14/18 05/23/19 History bisacodyl [Dulcolax (bisacodyl)] 5 mg PO HS PRN 07/14/18 05/23/19 History clopidogrel 75 mg PO QAM 07/14/18 05/23/19 History docusate calcium [Stool Softener] 240 mg PO DAILY PRN 07/14/18 05/23/19 History donepezil 10 mg PO HS 07/14/18 05/23/19 History esomeprazole magnesium 40 mg PO QAM 07/14/18 05/23/19 History ezetimibe 10 mg PO QAM 07/14/18 05/23/19 History ferrous sulfate 325 mg PO QAM 07/14/18 05/23/19 History levothyroxine 88 mcg PO QAM 07/14/18 05/23/19 History loratadine [Claritin] 10 mg PO HS 07/14/18 05/23/19 History losartan 25 mg PO QAM 07/14/18 05/23/19 History metformin 1,500 mg PO QAM 07/14/18 05/23/19 History mirtazapine 30 mg PO HS 07/14/18 05/23/19 History ropinirole 0.5 mg PO HS 07/14/18 05/23/19 History trazodone 50 mg PO HS PRN 07/14/18 05/23/19 History venlafaxine 75 mg PO QAM 07/14/18 05/23/19 History cholecalciferol (vitamin D3) 2,000 unit PO QAM 05/12/19 05/23/19 History [Vitamin D3] insulin glargine [Basaglar KwikPen 36 unit SUBCUT QAM 05/12/19 05/23/19 History U-100 Insulin] Patient History Medical History History of stroke (Chronic) Hypertension (Chronic) Vascular disease (Chronic) Mood disorder (Chronic) Marijuana use (Chronic) History of CVA with residual deficit (Chronic) H/o L MCA stroke during attempted L SCA stenting. Has residual dysphagia Anemia (Chronic) CREST syndrome (Chronic) PVD (peripheral vascular disease) (Chronic) Hypothyroidism (Chronic) DM type 2 (diabetes mellitus, type 2) (Chronic) DJD (degenerative joint disease), lumbar (Chronic) Hyperlipidemia (Chronic) Carotid stenosis (Chronic) Right carotid artery 70 to 90% stenosis of internal carotid, left carotid artery 50 to 69% Esophagitis (Chronic) Gastroparesis (Chronic) Iron deficiency anemia (Chronic) Surgical History S/P appendectomy (Resolved 10/11/12) History of spinal fusion (Resolved) History of hysterectomy (Resolved) H/O foot surgery (Resolved) Family History Mother Breast cancer Uterine cancer Father Lung cancer Emphysema/COPD Social History Preferred Language: Turkish Communication Ability: Effective Dietary Internship Required: No Beliefs That Will Affect Care: None Current Living Situation: Alone Other Information That Helps Us Care for You: No Feels Safe at Home: Yes Safety Concerns: Feels Safe At This Time Smoking Status: Former smoker Smoking End Date: 2011 ; Second Hand Exposure: Yes ; Tobacco Cessation Education Requested by Patient: No Hx Alcohol Use: Yes Alcohol type: hard liquor Hx Substance Use: Yes substance use type: marijuana Substance Use Type Other:: Smokes a bowl each weekly. Last smoked 1 week ago Last Used Substance: Days (ago) Last Used Substance Other:: 4-5 months. Review of Systems Review of Systems: ROS: Gen: + weakness x 1 wk, no fevers, no weight loss Eyes: No eye redness, or pain, no recent vision changes Resp: No SOB, no cough Cardio: No palpitations/irregular beats, no chest pressure or pain GI: See HPI No abdominal pain, + nausea, no vomiting : Denies pain on urination Skin: No jaundice, itching or new rashes Physical Exam Constitutional: WD/WN, vitals as above Eyes: PERRL, conjunctivae normal, anicteric sclerae ENMT: external ear and nose normal, oropharynx normal Neck: trachea midline, no thyromegaly Respiratory: normal respiratory effort, lungs clear to auscultation Cardiovascular: RRR, no murmur, no edema Gastrointestinal (Abdomen): normal bowel sounds, soft, nontender, no hepatosplenomegaly Rectal exam with a small amt of firm green stool in the rectal vault. Musculoskeletal: right sided arm weakness Skin: no rashes, warm and dry no jaundice Neurologic: PERRLA, slight right facial weakness Psychiatric: A+Ox3, euthymic affect Speech slow, slightly mumbled but able to answer questions. Lymphatic: no cervical or axillary lymphadenopathy Results & Data Vital Signs (Past 12 Hours) Vital Signs Temp Pulse Resp BP Pulse Ox 05/23/19 11:49 36.4 C L 91 H 20 166/95 H 97 Laboratory Results WBC 11 Hb 8.7, Hct 28.3. INR 1, Na 135, K 4.2, BUN 14, Cr 0.8. Diagnostic Findings CXR 05/23/19: No acute process.
[2019-05-23] MEDS ORDERED: GLUCAGON FOR INJ 1 MG VIAL SQ PRN (15:58)
[2019-05-23] MEDS ORDERED: CARBOHYDRATES FOR HYPOGLYCEMIA PO PRN (15:58)
[2019-05-23] MEDS ORDERED: ALUMINUM/MAGNESIUM SUSP 30 ML UDC PO PRN (15:58)
[2019-05-23] MEDS ORDERED: GLUCOSE 10 TABS/TUBE PO PRN (15:58)
[2019-05-23] MEDS ORDERED: GLUCOSE 40% GEL 15 GM TUBE PO PRN (15:58)
[2019-05-23] MEDS ORDERED: MAGNESIUM HYDROXIDE SUSP 30 ML UDC PO PRN (15:58)
[2019-05-23] MEDS ORDERED: POLYETHYLENE (MIRALAX) 17 GM PACK PO PRN (15:58)
[2019-05-23] MEDS ORDERED: TRAZODONE HCL 50 MG TAB PO PRN (15:58)
[2019-05-23] MEDS ORDERED: ONDANSETRON INJ 2 MG/ML 2 ML VIAL IV PRN (15:58)
[2019-05-23] MEDS ORDERED: DEXTROSE 50% 50 ML SYRINGE IV PRN (15:58)
[2019-05-23] MEDS ORDERED: SODIUM CHLORIDE 0.9% 250 ML IV PRN (15:58)
[2019-05-23] MEDS ORDERED: ACETAMINOPHEN 325 MG TAB PO PRN (15:58)
[2019-05-23] MEDS: SODIUM CHLORIDE 0.9% 1000ML 1,000 ML IV SCH (16:25)
[2019-05-23] MEDS: INSULIN ASPART 100 UNITS/ML 3 ML PEN SC SCH ×2 (16:34→20:45)
[2019-05-23] MEDS ORDERED: PANTOprazole 80 MG in DEXTROSE 5% 100 ML IV ONE (17:00)
[2019-05-23] MEDS ORDERED: POLYETHYLENE (MIRALAX) 17 GM PACK PO SCH (17:15)
[2019-05-23] MEDS: PANTOprazole 40 MG in DEXTROSE 5% 100 ML IV SCH ×2 (17:32→21:00)
[2019-05-23 17:59] LABS: Lyme Ab IgG w/WB Rflx Negative (Negative); Lyme Ab IgM w/WB Rflx Negative (Negative)
[2019-05-23] MEDS: ROPINIROLE HCL 0.25 MG TABLET PO SCH (19:58)
[2019-05-23] MEDS: ATORVASTATIN 40 MG TAB PO SCH (19:58)
[2019-05-23] MEDS: DONEPEZIL HCL 10 MG TAB PO SCH (19:59)
[2019-05-23] MEDS: LORATADINE 10 MG TAB PO SCH (19:59)
[2019-05-23] MEDS: MIRTAZAPINE TAB 15 MG TAB PO SCH (19:59)
[2019-05-24] MEDS: PANTOprazole 40 MG in DEXTROSE 5% 100 ML IV SCH ×5 (02:13→23:09)
[2019-05-24] MEDS: SODIUM CHLORIDE 0.9% 1000ML 1,000 ML IV SCH ×2 (05:12→22:14)
[2019-05-24] MEDS: LEVOTHYROXINE SODIUM 88 MCG TABLET PO SCH (05:12)
[2019-05-24 06:37] LABS: Basophils # (auto) 0.03 K/uL (0-0.2); Basophils % (auto) 0.3 %; Eosinophils # (auto) 0.09 K/uL (0-0.5); Hematocrit (blood only) 24.4 % (37-47); Hemoglobin 7.5 g/dL (12.0-16.0); Immature Granulocytes # (auto) 0.04 K/uL (0.00-0.02); Immature Granulocytes % (auto) 0.4 %; Lymphocytes # (auto) 1.62 K/uL (1.2-3.4); Lymphocytes % (auto) 17.8 %; Mean Corpuscular Hemoglobin 29.4 pg (25-34); Mean Corpuscular Hgb Conc 30.7 g/dL (32-36); Mean Corpuscular Volume 95.7 fL (80-100); Mean Platelet Volume 8.9 fL (7.4-10.4); Monocytes # (auto) 0.95 K/uL (0.11-0.59); Monocytes % (auto) 10.5 %; Neutrophils # (auto) 6.36 K/uL (1.4-6.5); Nucleated RBC # (auto) 0.07 K/uL (0-0); Nucleated RBC % (auto) 0.7 %; Platelet Count 441 K/uL (130-400); RDW Standard Deviation 60.1 fL (36.4-46.3); Red Blood Count 2.55 M/uL (4.2-5.4); White Blood Count 9.09 K/uL (4.8-10.8)
[2019-05-24 06:46] LABS: Estimated Average Glucose 91 mg/dl; Hemoglobin A1C 4.8 % (4.5-5.6)
[2019-05-24 07:08] LABS: Albumin Level 2.9 gm/dl (3.4-5.0); BUN Creatinine Ratio 11.9 (10-20); Calcium 8.5 mg/dl (8.5-10.1); Creatinine Clr Calc Pharmacy 51.1 ml/min; Est GFR (African American) 71.5; Est GFR (Non-African American) 61.7; Magnesium 2.2 mg/dl (1.8-2.4)
[2019-05-24 07:13] LABS: Albumin Globulin Ratio 0.9 (0.9-2); Bilirubin,Total 0.3 mg/dl (0.2-1); Globulin 3.3 gm/dl (2.5-4.0); Total Protein 6.2 gm/dl (6.4-8.2)
[2019-05-24 07:17] LABS: Anisocytosis Present; Polychromasia 1+
[2019-05-24] MEDS: LOSARTAN POTASSIUM 25 MG TAB PO SCH (07:45)
[2019-05-24] MEDS: FERROUS SULFATE 325 MG TAB PO SCH (07:45)
[2019-05-24] MEDS: VENLAFAXINE HCL XR 75 MG CAPXR PO SCH (07:45)
[2019-05-24] MEDS: CHOLECALCIFEROL 1,000 UNITS TAB PO SCH (07:45)
[2019-05-24] MEDS: EZETIMIBE 10 MG TABLET PO SCH (07:46)
[2019-05-24] MEDS ORDERED: POLYETHYLENE (MIRALAX) 17 GM PACK PO ONE (08:00)
[2019-05-24] MEDS ORDERED: BISACODYL 5 MG TABEC PO ONE (08:16)
[2019-05-24] MEDS ORDERED: ASPIRIN 81 MG ECTAB PO SCH ×2 (09:00)
[2019-05-24] MEDS ORDERED: PANTOprazole 40 MG TAB PO SCH (09:00)
[2019-05-24] MEDS ORDERED: CLOPIDOGREL BISULFATE 75 MG TAB PO SCH ×2 (09:00)
[2019-05-24] MEDS: INSULIN ASPART 100 UNITS/ML 3 ML PEN SC SCH ×4 (10:22→21:03)
[2019-05-24] MEDS: INSULIN GLARGINE SOLOSTAR 100 UNITS/ML 3 ML PEN SC SCH (10:22)
--- NOTE | 2019-05-24 13:09 | Hospitalist Progress Note ---
Date of Service May 24, 2019 Assessment & Plan (1) Symptomatic anemia: This is a 64-year-old female who has significant PMH of T2DM insulin dep, hx of CVA with residual aphasia/R sided weakness, carotid artery stenosis, L subclavian occlusion, HTN, HLD, COPD, Hypothyroidism, GERD, Scleroderma/CREST syn, Mood disorder, Depression with anxiety who presents to [facility] ED secondary to overall feeling weak and nauseous prior to arrival. In ED patient was hypertensive and tachycardic. She was otherwise afebrile and saturating well on room air. Her orthostatics were as follows lying BP 112/63, pulse 96; sitting BP 131/71, pulse 104, she did not tolerate standing secondary to lightheadedness. Her H&H was 8.7/28.3, WBC 11.41, platelet 510. Now Hgb 7.5, will repeat Will contact blood bank and GI Discussed with blood bank, that would like to transfuse , however there is no blood available for the pt at this time (anti-Lukas). Coomb's negative. Discussed with GI, recommend H&H q12 hrs, plan for endoscopy on Sunday (as planned) - per blood bank pt with very rare blood antigen; therefore no PRBC can be on hold - per GI, recommend checking H&H q12 hrs, plan for endoscopy on Sunday (05/26/2019) - Eval as outpt iron study on 05/14 - Ferritin 23.8, iron 48, TIBC 333, Tsat 14% - iron studies repeated - pending - peripheral smear path consult- pending Outpt vaginal bleeding workup complete - felt not to be source of bleeding - on ASA/Plavix for hx of CVA and carotid artery stenosis - per GI consult note, pt had EGD in September 2016 for iron deficiency anemia with findings of chronic gastritis. On colonoscopy at the same time, there was one solitary ulcer at the IC valve, also internal hemorrhoids. Repeat colonoscopy in December 2016 with normal IC valve area. - FOBT negative outpt, but repeated on admission and positive, GI consulted, plan for EGD and colonoscopy on Sunday (05/26) - on oral iron supplement per PCP (2) Generalized weakness: likely secondary to symptomatic anemia as above (3) DM type 2 (diabetes mellitus, type 2): Last A1C 5.4 will repeat A1C prior to transfusion Pt on Insulin/Metformin regimen as outpt Lantus/Novolog per sliding scale would recommend looser control given pt age and co morbidities to prevent hypoglycemia (4) Hypothyroidism: TSH low at 0.081, but Free T4 WNL continue levothyroxine (5) Hypertension: blood pressure elevated in ED pt on losartan as outpt monitor - if remains elevated consider titrating losartan (6) Hyperlipidemia: continue statin (7) Carotid stenosis: hold asa/plavix for now until anemia explained continue statin (8) Mood disorder: mood stable continue venlafaxine, mirtazapine, trazodone (9) CREST syndrome: supportive care (10) Microscopic hematuria: Noted on urinalysis Recommend repeat or follow-up as outpatient (11) DVT prophylaxis: SCD/TEDS Disposition: admit to PCU, case management consulted, Pt lives home alone may require rehab placement Follow up: PCP Dr. Macdonald upon discharge Subjective Pt is sitting up in chair, in no acute distress. Denies any chest pain, palpitations, shortness of breath. She feels weak though. Per nurse, pt had a BM that was brown and did not look like melena, however hemoccult positive. Discussed with blood bank, that would like to transfuse , however there is no blood available for the pt at this time (anti-Lukas). Coomb's negative. Discussed with GI, recommend H&H q12 hrs, plan for endoscopy on Sunday. Review of Systems Review of Systems: All systems reviewed & are unremarkable except as noted in HPI & below Constitutional: + fatigue; no fever and no chills Respiratory: no cough, no dyspnea and no pain on inspiration Cardiovascular: + dyspnea on exertion; no chest pain, no palpitations and no edema Gastrointestinal: no abdominal pain, no nausea and no vomiting Physical Exam Physical Exam: Constitutional: Thin pale female pale sitting up in bed in NAD, pleasant, mild dysarthria noted (chronic) Head: Normocephalic, Atraumatic Eyes: PERRL, EOMI, conjunctivae normal, anicteric sclerae ENMT: external ear and nose normal, oropharynx normal Neck: trachea midline, no thyromegaly normal visual inspection Respiratory: normal respiratory effort, lungs clear to auscultation, no wheeze, rales, rhonchi. Cardiovascular: Tachycardic rate, regular rhythm, no murmur, no edema Vessels: no JVD Chest: normal inspection of chest Abdomen: normal bowel sounds, soft, nontender, nondistended, no guarding Musculoskeletal: no cyanosis or clubbing, moves all 4 extremities spontaneously Skin: no rashes, warm and dry, multiple tattoos Neurologic: PERRL, EOMI, accommodation nl, no face palsy, +dysarthria CN's II- XI intact bilaterally and moves all extremities Psychiatric: A+Ox3, euthymic affect Lymphatic: no cervical or axillary lymphadenopathy : deferred Results & Data Vital Signs (Past 12 Hours) Vital Signs Temp Pulse Resp BP Pulse Ox 05/24/19 11:08 36.8 C 106 H 18 120/75 97 05/24/19 07:19 36.6 C 88 18 112/69 96 05/24/19 04:00 36.4 C L 104 H 16 111/62 95 Labs reviewed Notable for Hgb 7.5 this AM, after repeat 7.7
[2019-05-24 13:31] LABS: Hematocrit (blood only) 25.3 % (37-47); Hemoglobin 7.7 g/dL (12.0-16.0)
[2019-05-24] MEDS: cefTRIAXone SODIUM 1,000 MG in DEXTROSE 5% 50 ML IV SCH (13:44)
--- NOTE | 2019-05-24 13:48 | Gastroenterology Progress Note ---
Date of Service May 24, 2019 Assessment & Plan (1) Symptomatic anemia: 64 yo female here with symptomatic anemia. Recs: --clear liquid diet for now at this time as she is HD stable --continue to monitor, supportive care --tentative plan for EGD and colonoscopy saturday 05/26, prep starting tomorrow evening. --will continue to follow with you Subjective patient reports some small blood on wiping with the toilet paper today, notes she is drinking water, denies abdominal pains. Hgb noted to be 7.7 this afternoon, VSS. BUN wnl. Review of Systems Constitutional: no fever and no chills Respiratory: no cough, no dyspnea and no dyspnea on exertion Cardiovascular: no chest pain and no dyspnea Gastrointestinal: as per Subjective / HPI Psychiatric: no depression and no anxiety Physical Exam Constitutional: WD/WN, vitals as above Respiratory: normal respiratory effort, lungs clear to auscultation Cardiovascular: RRR, no murmur, no edema Gastrointestinal (Abdomen): normal bowel sounds, soft, nontender, no hepatosplenomegaly Musculoskeletal: no lower extremity edema Psychiatric: A+Ox3, euthymic affect Results & Data Vital Signs (Past 12 Hours) Vital Signs Temp Pulse Resp BP Pulse Ox 05/24/19 11:08 36.8 C 106 H 18 120/75 97 05/24/19 07:19 36.6 C 88 18 112/69 96 05/24/19 04:00 36.4 C L 104 H 16 111/62 95 PG Care Time/CCT Total # of Minutes Spent Total Time Spent with Patient: Total time spent is greater than 50% in coordination of care (as documented) at patient's floor/unit and/or counseling patient:
[2019-05-24] MEDS ORDERED: SODIUM CHLORIDE 0.9% 250 ML IV PRN (14:21)
[2019-05-24] MEDS ORDERED: LAVAGE SOLUTION 4000ML PO SCH (14:45)
[2019-05-24] MEDS: ATORVASTATIN 40 MG TAB PO SCH (21:01)
[2019-05-24] MEDS: ROPINIROLE HCL 0.25 MG TABLET PO SCH (21:02)
[2019-05-24] MEDS: DONEPEZIL HCL 10 MG TAB PO SCH (21:02)
[2019-05-24] MEDS: LORATADINE 10 MG TAB PO SCH (21:02)
[2019-05-24] MEDS: MIRTAZAPINE TAB 15 MG TAB PO SCH (21:02)
[2019-05-25] MEDS: PANTOprazole 40 MG in DEXTROSE 5% 100 ML IV SCH ×4 (04:11→19:33)
[2019-05-25 05:46] LABS: Hemoglobin 7.3 g/dL (12.0-16.0); Mean Corpuscular Hemoglobin 29.6 pg (25-34); Mean Corpuscular Hgb Conc 30.4 g/dL (32-36); Mean Corpuscular Volume 97.2 fL (80-100); Mean Platelet Volume 9.2 fL (7.4-10.4); Platelet Count 417 K/uL (130-400); RDW Coefficient of Variation 18.5 % (11.5-14.5); RDW Standard Deviation 63.1 fL (36.4-46.3); Red Blood Count 2.47 M/uL (4.2-5.4); White Blood Count 6.93 K/uL (4.8-10.8)
[2019-05-25 06:18] LABS: Calcium 8.2 mg/dl (8.5-10.1); Creatinine Clr Calc Pharmacy 61.2 ml/min; Est GFR (Non-African American) 76.8; Potassium 3.9 mmol/L (3.5-5.1)
[2019-05-25] MEDS: LEVOTHYROXINE SODIUM 88 MCG TABLET PO SCH (06:27)
--- NOTE | 2019-05-25 07:05 | Hospitalist Progress Note ---
Date of Service May 25, 2019 Assessment & Plan (1) Symptomatic anemia: This is a 64-year-old female who has significant PMH of T2DM insulin dep, hx of CVA with residual aphasia/R sided weakness, carotid artery stenosis, L subclavian occlusion, HTN, HLD, COPD, Hypothyroidism, GERD, Scleroderma/CREST syn, Mood disorder, Depression with anxiety who presents to [facility] ED secondary to overall feeling weak and nauseous prior to arrival. In ED patient was hypertensive and tachycardic. She was otherwise afebrile and saturating well on room air. Her orthostatics were as follows lying BP 112/63, pulse 96; sitting BP 131/71, pulse 104, she did not tolerate standing secondary to lightheadedness. Her H&H was 8.7/28.3, WBC 11.41, platelet 510. Yesterday Hgb 7.5, today 7.3, stable, unable to transfuse d/t no blood available for the pt at this time (anti-Lukas). Coomb's negative Will contact blood bank and GI Discussed with GI yesterday, recommend H&H q12 hrs, plan for endoscopy on Sunday (as planned) - per blood bank pt with very rare blood antigen; therefore no PRBC can be on hold - per GI, recommend checking H&H q12 hrs, plan for endoscopy on Sunday (05/26/2019) - Eval as outpt iron study on 05/14 - Ferritin 23.8, iron 48, TIBC 333, Tsat 14% - iron studies repeated - iron 347, TIBC 370, transferrin 257, ferritin 20.3 - LDH 153 (nl) - peripheral smear path consult- pending Outpt vaginal bleeding workup complete - felt not to be source of bleeding - on ASA/Plavix for hx of CVA and carotid artery stenosis - per GI consult note, pt had EGD in September 2016 for iron deficiency anemia with findings of chronic gastritis. On colonoscopy at the same time, there was one solitary ulcer at the IC valve, also internal hemorrhoids. Repeat colonoscopy in December 2016 with normal IC valve area. - FOBT negative outpt, but repeated on admission and positive, GI consulted, plan for EGD and colonoscopy on Sunday (05/26) - UA on admission blood 2+ - on oral iron supplement per PCP (2) Generalized weakness: likely secondary to symptomatic anemia as above (3) DM type 2 (diabetes mellitus, type 2): Last A1C 5.4 will repeat A1C prior to transfusion Pt on Insulin/Metformin regimen as outpt Lantus/Novolog per sliding scale would recommend looser control given pt age and co morbidities to prevent hypoglycemia (4) Hypothyroidism: TSH low at 0.081, but Free T4 WNL continue levothyroxine (5) Hypertension: blood pressure elevated in ED pt on losartan as outpt monitor - if remains elevated consider titrating losartan (6) Hyperlipidemia: continue statin (7) Carotid stenosis: hold asa/plavix for now until anemia explained continue statin (8) Mood disorder: mood stable continue venlafaxine, mirtazapine, trazodone (9) CREST syndrome: supportive care (10) Microscopic hematuria: Noted on urinalysis Recommend repeat or follow-up as outpatient (11) DVT prophylaxis: SCD/TEDS Disposition: admit to PCU, case management consulted, Pt lives home alone may require rehab placement Follow up: PCP Dr. Macdonald upon discharge Subjective 05/24/2019 Pt is sitting up in chair, in no acute distress. Denies any chest pain, palpitations, shortness of breath. She feels weak though. Per nurse, pt had a BM that was brown and did not look like melena, however hemoccult positive. Discussed with blood bank, that would like to transfuse , however there is no blood available for the pt at this time (anti-Lukas). Coomb's negative. Discussed with GI, recommend H&H q12 hrs, plan for endoscopy on Sunday (05/26/2019). 05/25/2019 Pt sitting up in bed, in no acute distress. Denies any fevers, chills, chest pain, shortness of breath, dizziness, she also denies any abdominal pain nausea or vomiting. Drinking prep for planned endoscopy tomorrow (05/26/2019). Review of Systems Review of Systems: All systems reviewed & are unremarkable except as noted in HPI & below Constitutional: no fever and no chills Respiratory: no cough and no dyspnea Cardiovascular: no chest pain, no dyspnea on exertion, no palpitations and no edema Gastrointestinal: no abdominal pain, no nausea and no vomiting Physical Exam Physical Exam: Constitutional: Thin pale female pale sitting up in bed in NAD, pleasant, mild dysarthria noted (chronic) Head: Normocephalic, Atraumatic Eyes: PERRL, EOMI, conjunctivae normal, anicteric sclerae ENMT: external ear and nose normal, oropharynx normal Neck: trachea midline, no thyromegaly normal visual inspection Respiratory: normal respiratory effort, lungs clear to auscultation, no wheeze, rales, rhonchi. Cardiovascular: Tachycardic rate, regular rhythm, no murmur, no edema Vessels: no JVD Chest: normal inspection of chest Abdomen: normal bowel sounds, soft, nontender, nondistended, no guarding Musculoskeletal: no cyanosis or clubbing, moves all 4 extremities spontaneously Skin: no rashes, warm and dry, multiple tattoos Neurologic: PERRL, EOMI, accommodation nl, no face palsy, +dysarthria CN's II- XI intact bilaterally and moves all extremities Psychiatric: A+Ox3, euthymic affect Lymphatic: no cervical or axillary lymphadenopathy Results & Data Vital Signs (Past 12 Hours) Vital Signs Temp Pulse Resp BP BP Pulse Ox 05/25/19 06:37 36.5 C 97 H 18 132/79 95 05/25/19 03:26 36.4 C L 98 H 17 111/68 98 05/24/19 23:21 36.5 C 92 H 18 138/79 98 05/24/19 19:04 36.7 C 91 H 18 129/72 97 Laboratory Results 05/25/19 05/25/19 05/24/19 Range/Units 05:10 05:10 20:13 WBC 6.93 (4.8-10.8) K/uL RBC 2.47 L (4.2-5.4) M/uL Hgb 7.3 L (12.0-16.0) g/dL Hct 24.0 L (37-47) % MCV 97.2 (80-100) fL MCH 29.6 (25-34) pg MCHC 30.4 L (32-36) g/dL RDW Std Deviation 63.1 H (36.4-46.3) fL RDW Coeff of Jj 18.5 H (11.5-14.5) % Plt Count 417 H (130-400) K/uL MPV 9.2 (7.4-10.4) fL Polychromasia Anisocytosis Sodium 142 (136-145) mmol/L Potassium 3.9 (3.5-5.1) mmol/L Chloride 110 H (98-107) mmol/L Carbon Dioxide 27 (21-32) mmol/L Anion Gap 5.0 (3-11) BUN 7 D (7-18) mg/dl Creatinine 0.81 (0.6-1.2) mg/dl Est Cr Clr Drug Dosing 61.2 ml/min Est GFR ( Amer) 89.0 Est GFR (Non-Af Amer) 76.8 BUN/Creatinine Ratio 9.0 L (10-20) Glucose 85 (70-99) mg/dl POC Glucose 114 H (70-99) Calcium 8.2 L (8.5-10.1) mg/dl Magnesium (1.8-2.4) mg/dl Total Bilirubin (0.2-1) mg/dl AST (15-37) U/L ALT (12-78) U/L Alkaline Phosphatase (45-117) U/L Total Protein (6.4-8.2) gm/dl Albumin (3.4-5.0) gm/dl Globulin (2.5-4.0) gm/dl Albumin/Globulin Ratio (0.9-2) Stool Occult Bld Scrn (Negative) Stool Occult Blood Stool Occult Blood #2 Stool Occult Blood #3 05/24/19 05/24/19 05/24/19 Range/Units 16:18 13:14 11:06 WBC (4.8-10.8) K/uL RBC (4.2-5.4) M/uL Hgb 7.7 L (12.0-16.0) g/dL Hct 25.3 L (37-47) % MCV (80-100) fL MCH (25-34) pg MCHC (32-36) g/dL RDW Std Deviation (36.4-46.3) fL RDW Coeff of Jj (11.5-14.5) % Plt Count (130-400) K/uL MPV (7.4-10.4) fL Polychromasia Anisocytosis Sodium (136-145) mmol/L Potassium (3.5-5.1) mmol/L Chloride (98-107) mmol/L Carbon Dioxide (21-32) mmol/L Anion Gap (3-11) BUN (7-18) mg/dl Creatinine (0.6-1.2) mg/dl Est Cr Clr Drug Dosing ml/min Est GFR ( Amer) Est GFR (Non-Af Amer) BUN/Creatinine Ratio (10-20) Glucose (70-99) mg/dl POC Glucose 138 H 169 H (70-99) Calcium (8.5-10.1) mg/dl Magnesium (1.8-2.4) mg/dl Total Bilirubin (0.2-1) mg/dl AST (15-37) U/L ALT (12-78) U/L Alkaline Phosphatase (45-117) U/L Total Protein (6.4-8.2) gm/dl Albumin (3.4-5.0) gm/dl Globulin (2.5-4.0) gm/dl Albumin/Globulin Ratio (0.9-2) Stool Occult Bld Scrn (Negative) Stool Occult Blood Stool Occult Blood #2 Stool Occult Blood #3 05/24/19 05/24/19 05/24/19 Range/Units 11:00 10:55 07:24 WBC (4.8-10.8) K/uL RBC (4.2-5.4) M/uL Hgb (12.0-16.0) g/dL Hct (37-47) % MCV (80-100) fL MCH (25-34) pg MCHC (32-36) g/dL RDW Std Deviation (36.4-46.3) fL RDW Coeff of Jj (11.5-14.5) % Plt Count (130-400) K/uL MPV (7.4-10.4) fL Polychromasia Anisocytosis Sodium (136-145) mmol/L Potassium (3.5-5.1) mmol/L Chloride (98-107) mmol/L Carbon Dioxide (21-32) mmol/L Anion Gap (3-11) BUN (7-18) mg/dl Creatinine (0.6-1.2) mg/dl Est Cr Clr Drug Dosing ml/min Est GFR ( Amer) Est GFR (Non-Af Amer) BUN/Creatinine Ratio (10-20) Glucose (70-99) mg/dl POC Glucose 98 (70-99) Calcium (8.5-10.1) mg/dl Magnesium (1.8-2.4) mg/dl Total Bilirubin (0.2-1) mg/dl AST (15-37) U/L ALT (12-78) U/L Alkaline Phosphatase (45-117) U/L Total Protein (6.4-8.2) gm/dl Albumin (3.4-5.0) gm/dl Globulin (2.5-4.0) gm/dl Albumin/Globulin Ratio (0.9-2) Stool Occult Bld Scrn Positive A (Negative) Stool Occult Blood Cancelled Stool Occult Blood #2 Cancelled Stool Occult Blood #3 Cancelled 05/24/19 05/24/19 Range/Units 06:11 06:11 WBC (4.8-10.8) K/uL RBC (4.2-5.4) M/uL Hgb (12.0-16.0) g/dL Hct (37-47) % MCV (80-100) fL MCH (25-34) pg MCHC (32-36) g/dL RDW Std Deviation (36.4-46.3) fL RDW Coeff of Jj (11.5-14.5) % Plt Count (130-400) K/uL MPV (7.4-10.4) fL Polychromasia 1+ Anisocytosis Present Sodium 140 (136-145) mmol/L Potassium 4.0 (3.5-5.1) mmol/L Chloride 109 H (98-107) mmol/L Carbon Dioxide 27 (21-32) mmol/L Anion Gap 5.0 (3-11) BUN 12 (7-18) mg/dl Creatinine 0.97 (0.6-1.2) mg/dl Est Cr Clr Drug Dosing 51.1 ml/min Est GFR ( Amer) 71.5 Est GFR (Non-Af Amer) 61.7 BUN/Creatinine Ratio 11.9 (10-20) Glucose 76 (70-99) mg/dl POC Glucose (70-99) Calcium 8.5 (8.5-10.1) mg/dl Magnesium 2.2 (1.8-2.4) mg/dl Total Bilirubin 0.3 (0.2-1) mg/dl AST 23 (15-37) U/L ALT 19 (12-78) U/L Alkaline Phosphatase 78 (45-117) U/L Total Protein 6.2 L D (6.4-8.2) gm/dl Albumin 2.9 L (3.4-5.0) gm/dl Globulin 3.3 (2.5-4.0) gm/dl Albumin/Globulin Ratio 0.9 (0.9-2) Stool Occult Bld Scrn (Negative) Stool Occult Blood Stool Occult Blood #2 Stool Occult Blood #3 Medications Administered
[2019-05-25] MEDS: VENLAFAXINE HCL XR 75 MG CAPXR PO SCH (08:48)
[2019-05-25] MEDS: LOSARTAN POTASSIUM 25 MG TAB PO SCH (08:48)
[2019-05-25] MEDS: FERROUS SULFATE 325 MG TAB PO SCH (08:48)
[2019-05-25] MEDS: cefTRIAXone SODIUM 1,000 MG in DEXTROSE 5% 50 ML IV SCH (08:50)
[2019-05-25] MEDS: CHOLECALCIFEROL 1,000 UNITS TAB PO SCH (08:50)
[2019-05-25] MEDS: EZETIMIBE 10 MG TABLET PO SCH (08:50)
[2019-05-25] MEDS ORDERED: LAVAGE SOLUTION 4000ML PO SCH (09:00)
[2019-05-25] MEDS ORDERED: BISACODYL 5 MG TABEC PO ONE (09:00)
[2019-05-25] MEDS: INSULIN ASPART 100 UNITS/ML 3 ML PEN SC SCH ×4 (12:24→21:28)
[2019-05-25] MEDS: INSULIN GLARGINE SOLOSTAR 100 UNITS/ML 3 ML PEN SC SCH (12:25)
[2019-05-25] MEDS: SODIUM CHLORIDE 0.9% 1000ML 1,000 ML IV SCH (16:09)
[2019-05-25] MEDS: ROPINIROLE HCL 0.25 MG TABLET PO SCH (21:26)
[2019-05-25] MEDS: MIRTAZAPINE TAB 15 MG TAB PO SCH (21:26)
[2019-05-25] MEDS: ATORVASTATIN 40 MG TAB PO SCH (21:27)
[2019-05-25] MEDS: DONEPEZIL HCL 10 MG TAB PO SCH (21:27)
[2019-05-25] MEDS: LORATADINE 10 MG TAB PO SCH (21:27)
[2019-05-26] MEDS: PANTOprazole 40 MG in DEXTROSE 5% 100 ML IV SCH ×3 (00:30→10:38)
[2019-05-26] MEDS: LEVOTHYROXINE SODIUM 88 MCG TABLET PO SCH (05:38)
[2019-05-26 06:06] LABS: Hematocrit (blood only) 23.4 % (37-47); Hemoglobin 7.2 g/dL (12.0-16.0); Mean Corpuscular Hgb Conc 30.8 g/dL (32-36); Mean Corpuscular Volume 97.5 fL (80-100); Mean Platelet Volume 8.4 fL (7.4-10.4); Platelet Count 398 K/uL (130-400); RDW Coefficient of Variation 18.6 % (11.5-14.5); RDW Standard Deviation 63.6 fL (36.4-46.3); White Blood Count 5.59 K/uL (4.8-10.8)
[2019-05-26 06:46] LABS: BUN Creatinine Ratio 4.7 (10-20); Calcium 8.2 mg/dl (8.5-10.1); Creatinine Clr Calc Pharmacy 61.1 ml/min; Est GFR (Non-African American) 76.8; Potassium 3.7 mmol/L (3.5-5.1)
--- NOTE | 2019-05-26 08:00 | Hospitalist Progress Note ---
Date of Service May 26, 2019 Assessment & Plan (1) Symptomatic anemia: This is a 64-year-old female who has significant PMH of T2DM insulin dep, hx of CVA with residual aphasia/R sided weakness, carotid artery stenosis, L subclavian occlusion, HTN, HLD, COPD, Hypothyroidism, GERD, Scleroderma/CREST syn, Mood disorder, Depression with anxiety who presents to [facility] ED secondary to overall feeling weak and nauseous prior to arrival. In ED patient was hypertensive and tachycardic. She was otherwise afebrile and saturating well on room air. Her orthostatics were as follows lying BP 112/63, pulse 96; sitting BP 131/71, pulse 104, she did not tolerate standing secondary to lightheadedness. Her H&H was 8.7/28.3, WBC 11.41, platelet 510. Yesterday Hgb 7.3, stable, unable to transfuse d/t no blood available for the pt at this time (anti-Lukas). [facility]'s negative Blood bank notified about the need. Discussed with GI yesterday, recommend H&H q12 hrs, plan for endoscopy on Sunday (as planned) - per blood bank pt with very rare blood antigen; therefore no PRBC can be on hold - per GI, recommend checking H&H q12 hrs, plan for endoscopy today (05/26/2019) - Eval as outpt iron study on 05/14 - Ferritin 23.8, iron 48, TIBC 333, Tsat 14% - iron studies repeated - iron 347, TIBC 370, transferrin 257, ferritin 20.3 - LDH 153 (nl) - Peripheral smear path consult-peripheral smear shows normochromic, normocytic appearing erythrocytes with anisopoikilocytosis including increased polychromatophilic cells (a subset of reticulocytes). No significant number of schistocytes or spherocytes is identified. Leukocytes appear mildly in number with increased monocytes. Platelets are increased in number and are unremarkable in appearance. Associated WBC 11.4, ANC 8.4, IG 0.8, Hgb 8.7, normal MCV and 510k platelets. Reticulocytes are increased. Iron is elevated and the CHRISSY is negative. Overall findings are nonspecific mildly left-shifted leukocytosis, normocytic anemia, and thrombocytosis. No overt changes of a myelodysplastic syndrome, MPN or hemolytic anemia are seen. (Pedro Lucia MD). Outpt vaginal bleeding workup complete - felt not to be source of bleeding - on ASA/Plavix for hx of CVA and carotid artery stenosis - per GI consult note, pt had EGD in September 2016 for iron deficiency anemia with findings of chronic gastritis. On colonoscopy at the same time, there was one solitary ulcer at the IC valve, also internal hemorrhoids. Repeat colonoscopy in December 2016 with normal IC valve area. - FOBT negative outpt, but repeated on admission and positive, GI consulted, plan for EGD and colonoscopy on Sunday (05/26) - UA on admission blood 2+ - on oral iron supplement per PCP (2) Generalized weakness: likely secondary to symptomatic anemia as above (3) DM type 2 (diabetes mellitus, type 2): Last A1C 5.4 Pt on Insulin/Metformin regimen as outpt Lantus/Novolog per sliding scale would recommend looser control given pt age and co morbidities to prevent hypoglycemia (4) Hypothyroidism: TSH low at 0.081, but Free T4 WNL continue levothyroxine (5) Hypertension: blood pressure elevated in ED pt on losartan as outpt monitor - if remains elevated consider titrating losartan (6) Hyperlipidemia: continue statin (7) Carotid stenosis: hold asa/plavix for now until anemia explained continue statin (8) Mood disorder: mood stable continue venlafaxine, mirtazapine, trazodone (9) CREST syndrome: supportive care (10) Microscopic hematuria: Noted on urinalysis Recommend repeat during follow-up as outpatient (11) DVT prophylaxis: SCD/TEDS Dispo: home (pt has home helpers from [address] [place] [address] and a boyfriend, but pt lives alone) Follow up: PCP Dr. Macdonald upon discharge Subjective No acute events overnight. Pt denies any chest pain, shortness of breath, palpitations, abd. pain. Plan for endoscopy today, pt finished prep. Update: S/p endoscopy, pt feels well, tolerated procedure well. Review of Systems Review of Systems: All systems reviewed & are unremarkable except as noted in HPI & below Constitutional: no fever and no chills Respiratory: no cough and no dyspnea Cardiovascular: no chest pain, no palpitations and no edema Gastrointestinal: no abdominal pain, no nausea and no vomiting Physical Exam Physical Exam: Constitutional: Thin pale female pale sitting up in bed in NAD, pleasant, mild dysarthria noted (chronic) Head: Normocephalic, Atraumatic Eyes: PERRL, EOMI, conjunctivae normal, anicteric sclerae ENMT: external ear and nose normal, oropharynx normal Neck: trachea midline, no thyromegaly normal visual inspection Respiratory: normal respiratory effort, lungs clear to auscultation, no wheeze, rales, rhonchi. Cardiovascular: Tachycardic rate, regular rhythm, no murmur, no edema Vessels: no JVD Chest: normal inspection of chest Abdomen: normal bowel sounds, soft, nontender, nondistended, no guarding Musculoskeletal: no cyanosis or clubbing, moves all 4 extremities spontaneously Skin: no rashes, warm and dry, multiple tattoos Neurologic: PERRL, EOMI, accommodation nl, no face palsy, +dysarthria CN's II- XI intact bilaterally and moves all extremities Psychiatric: A+Ox3, euthymic affect Lymphatic: no cervical or axillary lymphadenopathy Results & Data Vital Signs (Past 12 Hours) Vital Signs Temp Pulse Resp BP Pulse Ox 05/26/19 07:50 36.7 C 83 18 125/82 96 05/26/19 04:23 36.5 C 93 H 18 132/80 96 05/25/19 23:49 36.7 C 102 H 18 96/60 L 95 Laboratory Results 05/26/19 05/26/19 05/26/19 Range/Units 07:29 07:11 05:48 WBC (4.8-10.8) K/uL RBC (4.2-5.4) M/uL Hgb (12.0-16.0) g/dL Hct (37-47) % MCV (80-100) fL MCH (25-34) pg MCHC (32-36) g/dL RDW Std Deviation (36.4-46.3) fL RDW Coeff of Jj (11.5-14.5) % Plt Count (130-400) K/uL MPV (7.4-10.4) fL Sodium 144 (136-145) mmol/L Potassium 3.7 (3.5-5.1) mmol/L Chloride 112 H (98-107) mmol/L Carbon Dioxide 27 (21-32) mmol/L Anion Gap 5.0 (3-11) BUN 4 L (7-18) mg/dl Creatinine 0.81 (0.6-1.2) mg/dl Est Cr Clr Drug Dosing 61.1 ml/min Est GFR ( Amer) 89.0 Est GFR (Non-Af Amer) 76.8 BUN/Creatinine Ratio 4.7 L (10-20) Glucose 106 H (70-99) mg/dl POC Glucose 119 H 120 H (70-99) Calcium 8.2 L (8.5-10.1) mg/dl Blood Type Antibody Screen Direct Antiglob Test (Negative) CHRISSY (IgG-AHG) (Negative) CHRISSY, Polyspecific (Negative) CHRISSY C3b, C3d 5 Min (Negative) Crossmatch 05/26/19 05/25/19 05/25/19 Range/Units 05:48 20:15 16:22 WBC 5.59 (4.8-10.8) K/uL RBC 2.40 L (4.2-5.4) M/uL Hgb 7.2 L (12.0-16.0) g/dL Hct 23.4 L (37-47) % MCV 97.5 (80-100) fL MCH 30.0 (25-34) pg MCHC 30.8 L (32-36) g/dL RDW Std Deviation 63.6 H (36.4-46.3) fL RDW Coeff of Jj 18.6 H (11.5-14.5) % Plt Count 398 (130-400) K/uL MPV 8.4 (7.4-10.4) fL Sodium (136-145) mmol/L Potassium (3.5-5.1) mmol/L Chloride (98-107) mmol/L Carbon Dioxide (21-32) mmol/L Anion Gap (3-11) BUN (7-18) mg/dl Creatinine (0.6-1.2) mg/dl Est Cr Clr Drug Dosing ml/min Est GFR ( Amer) Est GFR (Non-Af Amer) BUN/Creatinine Ratio (10-20) Glucose (70-99) mg/dl POC Glucose 87 120 H (70-99) Calcium (8.5-10.1) mg/dl Blood Type Antibody Screen Direct Antiglob Test (Negative) CHRISSY (IgG-AHG) (Negative) CHRISSY, Polyspecific (Negative) CHRISSY C3b, C3d 5 Min (Negative) Crossmatch 05/25/19 05/23/19 Range/Units 11:10 11:41 WBC (4.8-10.8) K/uL RBC (4.2-5.4) M/uL Hgb (12.0-16.0) g/dL Hct (37-47) % MCV (80-100) fL MCH (25-34) pg MCHC (32-36) g/dL RDW Std Deviation (36.4-46.3) fL RDW Coeff of Jj (11.5-14.5) % Plt Count (130-400) K/uL MPV (7.4-10.4) fL Sodium (136-145) mmol/L Potassium (3.5-5.1) mmol/L Chloride (98-107) mmol/L Carbon Dioxide (21-32) mmol/L Anion Gap (3-11) BUN (7-18) mg/dl Creatinine (0.6-1.2) mg/dl Est Cr Clr Drug Dosing ml/min Est GFR ( Amer) Est GFR (Non-Af Amer) BUN/Creatinine Ratio (10-20) Glucose (70-99) mg/dl POC Glucose 101 H (70-99) Calcium (8.5-10.1) mg/dl Blood Type A Negative Antibody Screen NEGATIVE Direct Antiglob Test Negative (Negative) CHRISSY (IgG-AHG) Neg (Negative) CHRISSY, Polyspecific Neg (Negative) CHRISSY C3b, C3d 5 Min Neg (Negative) Crossmatch See Detail
[2019-05-26] MEDS: SODIUM CHLORIDE 0.9% 1000ML 1,000 ML IV SCH (08:44)
[2019-05-26] MEDS: cefTRIAXone SODIUM 1,000 MG in DEXTROSE 5% 50 ML IV SCH (09:15)
[2019-05-26] MEDS: EZETIMIBE 10 MG TABLET PO SCH (09:17)
[2019-05-26] MEDS: CHOLECALCIFEROL 1,000 UNITS TAB PO SCH (09:17)
[2019-05-26] MEDS: FERROUS SULFATE 325 MG TAB PO SCH (09:17)
[2019-05-26] MEDS: VENLAFAXINE HCL XR 75 MG CAPXR PO SCH (09:18)
[2019-05-26] MEDS: LOSARTAN POTASSIUM 25 MG TAB PO SCH (09:19)
[2019-05-26] MEDS: INSULIN ASPART 100 UNITS/ML 3 ML PEN SC SCH ×4 (09:20→21:58)
[2019-05-26] MEDS: POTASSIUM CHLORIDE / WTR 10 MEQ/100 ML PLCT IV SCH ×2 (10:07→11:22)
[2019-05-26] MEDS: INSULIN GLARGINE SOLOSTAR 100 UNITS/ML 3 ML PEN SC SCH (10:13)
[2019-05-26] MEDS ORDERED: PROPOFOL IV EMULSION 10 MG/ML 20 ML VIAL IV ONE (11:36)
[2019-05-26] MEDS ORDERED: LIDOCAINE HCL 2% 2 ML VIAL/AMP(20MG/ML) INFIL ONE (11:36)
--- NOTE | 2019-05-26 12:00 | History & Physical Bridge Note ---
Date of Service May 26, 2019 History & Physical Bridge Note I have examined the patient, reviewed the History & Physical and in the interval since the performance of the History & Physical I have noted the following changes of clinical significance: no changes noted. The patient is undergoing upper endoscopy and colonoscopy today for evaluation of anemia. We have discussed the risks and benefits of the procedures to include bleeding, infection, perforation, pain and need for follow-up examinations.
[2019-05-26] MEDS ORDERED: ATROPINE SULFATE 0.1 MG/ML 10ML SYR IV PRN (12:20)
[2019-05-26] MEDS ORDERED: ePHEDrine sulfate 50 MG/ML AMP IV PRN (12:20)
--- NOTE | 2019-05-26 12:20 | Anesthesiology Consultation ---
Date of Service May 26, 2019 Assessment & Plan (1) Encounter for pre-operative examination: Chart Review Chart Review: Acceptable Risk for Surgery and Patient NOT seen in Pre Admission Testing Consults Requested none History Surgery Operation Date: 05/26/19 16:30 Proposed Procedures p Colonoscopy EGD Dr Alli Carson Height/Weight Height: 5 ft 1 in Weight: 66.2 kg Allergies Allergy/AdvReac Type Severity Reaction Status Date / Time clarithromycin AdvReac Unknown FEEL WEIRD Verified 05/23/19 12:32 Medications Home Medications Medication Instructions Recorded Confirmed Last Taken ProAir RespiClick 2 inh INHALATION QID 07/14/18 05/23/19 07/13/18 aspirin [Aspirin Low Dose] 81 mg PO QAM 07/14/18 05/23/19 05/23/19 atorvastatin 80 mg PO HS 07/14/18 05/23/19 05/22/19 bisacodyl [Dulcolax (bisacodyl)] 5 mg PO HS PRN 07/14/18 05/23/19 07/13/18 clopidogrel 75 mg PO QAM 07/14/18 05/23/19 05/23/19 docusate calcium [Stool Softener] 240 mg PO DAILY PRN 07/14/18 05/23/19 07/13/18 donepezil 10 mg PO HS 07/14/18 05/23/19 05/22/19 esomeprazole magnesium 40 mg PO QAM 07/14/18 05/23/19 05/22/19 ezetimibe 10 mg PO QAM 07/14/18 05/23/19 05/22/19 ferrous sulfate 325 mg PO QAM 07/14/18 05/23/19 05/22/19 levothyroxine 88 mcg PO QAM 07/14/18 05/23/19 05/23/19 loratadine [Claritin] 10 mg PO HS 07/14/18 05/23/19 05/22/19 losartan 25 mg PO QAM 07/14/18 05/23/19 05/23/19 metformin 1,500 mg PO QAM 07/14/18 05/23/19 05/23/19 mirtazapine 30 mg PO HS 07/14/18 05/23/19 05/22/19 ropinirole 0.5 mg PO HS 1205/23/19 05/22/19 trazodone 50 mg PO HS PRN 07/14/18 05/23/19 07/13/18 venlafaxine 75 mg PO QAM 07/14/18 05/23/19 05/23/19 cholecalciferol (vitamin D3) 2,000 unit PO QAM 05/12/19 05/23/19 05/23/19 [Vitamin D3] insulin glargine [Cassieaglar MeganikPen 36 unit SUBCUT QA 05/12/19 05/23/19 05/22/19 U-100 Insulin] Active Medications Generic Name Dose Route Start Last Admin Trade Name Freq PRN Reason Stop Dose Admin Atorvastatin Calcium 80 mg 05/23/19 21:00 05/25/19 21:27 Lipitor PO 06/22/19 20:59 80 mg HS OLIMPIA Administration Dextrose 25 - 50 ml 05/23/19 15:58 05/23/19 16:56 Dextrose 50% IV 06/22/19 15:57 50 ml UD PRN Administration Hypoglycemia Protocol Protocol Donepezil HCl 10 mg 05/23/19 21:00 05/25/19 21:27 Aricept PO 06/22/19 20:59 10 mg HS OLIMPIA Administration Ezetimibe 10 mg 05/24/19 09:00 05/26/19 09:17 Zetia PO 06/23/19 08:59 10 mg QAM OLIMPIA Administration Ferrous Sulfate 325 mg 05/24/19 09:00 05/26/19 09:17 Feosol PO 06/23/19 08:59 325 mg QAM OLIMPIA Administration Glucose 4 - 8 tabs 05/23/19 15:58 05/23/19 16:32 Dex4 Glucose PO 06/22/19 15:57 4 tabs UD PRN Administration Hypoglycemia Protocol Protocol Sodium Chloride 1,000 mls @ 60 mls/hr 05/23/19 16:15 05/26/19 08:44 Nss 1000ml IV 06/22/19 16:14 60 mls/hr .[id number] OLIMPIA Administration Pantoprazole Sodium 40 mg/ 100 mls @ 20 mls/hr 05/23/19 17:00 05/26/19 10:38 Dextrose IV 06/22/19 16:59 20 mls/hr Q5H OLIMPIA Administration Ceftriaxone Sodium 1,000 mg/ 60 mls @ 100 mls/hr 05/24/19 13:00 05/26/19 10:42 Dextrose IV 05/29/19 12:59 Infused DAILY OLIMPIA Infusion Protocol Insulin Aspart 0 units 05/23/19 16:30 05/26/19 09:20 Novolog Flexpen SC 06/22/19 16:29 Not Given ACHS OLIMPIA Insulin Glargine 0 - 24 units 05/24/19 09:00 05/26/19 10:13 Lantus Solostar Pen SC 06/23/19 08:59 Not Given DAILY OLIMPIA Protocol Levothyroxine Sodium 88 mcg 05/24/19 06:30 05/26/19 05:38 Synthroid PO 06/23/19 06:29 88 mcg DAILYBB OLIMPIA Administration Loratadine 10 mg 05/23/19 21:00 05/25/19 21:27 Claritin PO 06/22/19 20:59 10 mg HS OLIMPIA Administration Losartan Potassium 25 mg 05/24/19 09:00 05/26/19 09:19 Cozaar PO 06/23/19 08:59 25 mg QAM OLIMPIA Administration Mirtazapine 30 mg 05/23/19 21:00 05/25/19 21:26 Remeron PO 06/22/19 20:59 30 mg HS OLIMPIA Administration Ropinirole HCl 0.5 mg 05/23/19 21:00 05/25/19 21:26 Requip PO 06/22/19 20:59 0.5 mg HS OLIMPIA Administration Trazodone HCl 50 mg 05/23/19 15:58 05/23/19 19:59 Desyrel PO 06/22/19 15:57 50 mg HS PRN Administration Pain Venlafaxine HCl 75 mg 05/24/19 09:00 05/26/19 09:18 Effexor Extended Release PO 06/23/19 08:59 75 mg QAM OLIMPIA Administration Vitamin D 2,000 units 05/24/19 09:00 05/26/19 09:17 Vitamin D3 PO 06/23/19 08:59 2,000 units QAM OLIMPIA Administration NPO Date Last Intake of Fluids: 05/25/19 Time Last Intake of Fluids: 22:00 Date Last Intake of Solids: 05/24/19 Time Last Intake of Solids: 12:00 Past Medical History Medical History History of stroke (Chronic) Hypertension (Chronic) Vascular disease (Chronic) Mood disorder (Chronic) Marijuana use (Chronic) History of CVA with residual deficit (Chronic) H/o L MCA stroke during attempted L SCA stenting. Has residual dysphagia Anemia (Chronic) CREST syndrome (Chronic) PVD (peripheral vascular disease) (Chronic) Hypothyroidism (Chronic) DM type 2 (diabetes mellitus, type 2) (Chronic) DJD (degenerative joint disease), lumbar (Chronic) Hyperlipidemia (Chronic) Carotid stenosis (Chronic) Right carotid artery 70 to 90% stenosis of internal carotid, left carotid artery 50 to 69% Esophagitis (Chronic) Gastroparesis (Chronic) Past Family History Family History Mother Breast cancer Uterine cancer Father Lung cancer Emphysema/COPD Past Surgical History Surgical History S/P appendectomy (Resolved 10/11/12) History of spinal fusion (Resolved) History of hysterectomy (Resolved) H/O foot surgery (Resolved) Social History Smoking Status: Former smoker Smoking End Date: 2011 Hx Alcohol Use: Yes Alcohol type: hard liquor alcohol intake frequency: a few times a month Alcohol Intake Frequency Comment: Every two weeks. ~ 3 drinks. Hx Substance Use: Yes substance use type: marijuana Substance Use Type Other:: Smokes a bowl each weekly. Last smoked 1 week ago Last Used Substance: Days (ago) Last Used Substance Other:: 4-5 months. Physical Exam Vital Signs Last Vital Signs Temp 36.6 C 05/26/19 11:57 Pulse 77 05/26/19 11:57 Resp 20 05/26/19 11:57 BP 116/100 05/26/19 11:57 Pulse Ox 100 05/26/19 11:57 Testing Laboratory Results 05/26/19 05:48 05/26/19 05:48 PT 10.5 Seconds (9.0-12.0) 05/23/19 11:41 INR 1.0 (0.9-1.1) 05/23/19 11:41 APTT 22.8 Seconds (21.0-31.0) 05/23/19 11:41 Hemoglobin A1c 4.8 % (4.5-5.6) 05/23/19 11:41 Urine Color Yellow 05/23/19 13:00 Urine Appearance Cloudy (Clear) A 05/23/19 13:00 Urine pH 5.5 (4.5-7.5) 05/23/19 13:00 Ur Specific [place] 1.017 (1.000-1.030) 05/23/19 13:00 Urine Protein Negative (Negative) 05/23/19 13:00 Urine Glucose (UA) Negative (Negative) 05/23/19 13:00 Urine Ketones Negative (Negative) 05/23/19 13:00 Urine Nitrite Negative (Negative) 05/23/19 13:00 Ur Leukocyte Esterase 1+ (Negative) H 05/23/19 13:00 Urine WBC (Auto) 10-30 /hpf (0-5) H 05/23/19 13:00 Urine RBC (Auto) 10-30 /hpf (0-4) H 05/23/19 13:00 U Hyaline Cast (Auto) 1-5 /lpf (0-5) 05/23/19 13:00 U Epithel Cells (Auto) >30 /lpf (0-5) H 05/23/19 13:00 Urine Bacteria (Auto) Negative (Negative) 05/23/19 13:00 Blood Type A Negative 05/23/19 11:41 Antibody Screen NEGATIVE 05/23/19 11:41 05/23/19 13:00 Urine Culture - Final Urine,Clean Catch Escherichia coli 05/26/19 05/26/19 05/26/19 11:22 11:08 07:29 POC Glucose 112 H 114 H 119 H 05/26/19 07:11 POC Glucose 120 H
--- NOTE | 2019-05-26 13:00 | GI REPORT ---
Patient Name: Mike Orona Procedure Date: 05/26/2019 12:10 PM Date of : 1955 Admit Type: Inpatient Age: 64 Gender: Female Attending MD: Sagrario Carson DO Procedure: Upper GI endoscopy Providers: Sagrario Carson DO Referring MD: Oseas Macdonald, Rafa Moreno Md Indications: Iron deficiency anemia Medicines: Monitored Anesthesia Care Complications: No immediate complications. Estimated blood loss: Minimal. Estimated Blood Loss: Estimated blood loss was minimal. Procedure: Pre-Anesthesia Assessment: - Prior to the procedure, a History and Physical was performed, and patient medications, allergies and sensitivities were reviewed. The patient's tolerance of previous anesthesia was reviewed. - The risks and benefits of the procedure and the sedation options and risks were discussed with the patient. All questions were answered and informed consent was obtained. - Patient identification and proposed procedure were verified prior to the procedure by the physician, the nurse and the clothes drier repairer. The procedure was verified in the procedure room. - Pre-procedure physical examination revealed no contraindications to sedation. - ASA Grade Assessment: III - A patient with severe systemic disease. - After reviewing the risks and benefits, the patient was deemed in satisfactory condition to undergo the procedure. - The anesthesia plan was to use monitored anesthesia care (MAC). - Immediately prior to administration of medications, the patient was re-assessed for adequacy to receive sedatives. - The heart rate, respiratory rate, oxygen saturations, blood pressure, adequacy of pulmonary ventilation, and response to care were monitored throughout the procedure. - The physical status of the patient was re-assessed after the procedure. After obtaining informed consent, the endoscope was passed under direct vision. Throughout the procedure, the patient's blood pressure, pulse, and oxygen saturations were monitored continuously. The scope was introduced through the mouth, and advanced to the third part of duodenum. The upper GI endoscopy was accomplished without difficulty. The patient tolerated the procedure well. Findings: The examined esophagus was normal. The Z-line was regular and was found 35 cm from the incisors. Diffuse mild inflammation characterized by erythema and granularity was found in the entire examined stomach. Biopsies were taken with a cold forceps for histology. The pathology specimen was placed into Bottle B. Estimated blood loss was minimal. The examined duodenum was normal. Biopsies were taken with a cold forceps for histology. The pathology specimen was placed into Bottle A. Estimated blood loss was minimal. Impression: - Normal esophagus. - Z-line regular, 35 cm from the incisors. - Gastritis. Biopsied. - Normal examined duodenum. Biopsied. Recommendation: - Perform a colonoscopy today. - Await pathology results. Sagrario Carson D.O. Sagrario Carson, 05/26/2019 1:00:22 PM This report has been signed electronically. Note Initiated On: 05/26/2019 12:10 PM Number of Addenda: 0 I attest to the content of the Intraoperative Record and orders documented therein, exceptions below {[id number]}
--- NOTE | 2019-05-26 13:03 | GI REPORT ---
Patient Name: Mike Orona Procedure Date: 05/26/2019 12:10 PM Date of : 1955 Admit Type: Inpatient Age: 64 Gender: Female Attending MD: Sagrario Carson DO Procedure: Colonoscopy Providers: Sagrario Carson DO Referring MD: Rafa Moreno Md, Oseas Macdonald Indications: Iron deficiency anemia Medicines: Monitored Anesthesia Care Complications: No immediate complications. Estimated blood loss: Minimal. Estimated Blood Loss: Estimated blood loss was minimal. Procedure: Pre-Anesthesia Assessment: - Prior to the procedure, a History and Physical was performed, and patient medications, allergies and sensitivities were reviewed. The patient's tolerance of previous anesthesia was reviewed. - The risks and benefits of the procedure and the sedation options and risks were discussed with the patient. All questions were answered and informed consent was obtained. - Patient identification and proposed procedure were verified prior to the procedure by the physician, the nurse and the dub room engineer. The procedure was verified in the procedure room. - Pre-procedure physical examination revealed no contraindications to sedation. - ASA Grade Assessment: III - A patient with severe systemic disease. - After reviewing the risks and benefits, the patient was deemed in satisfactory condition to undergo the procedure. - The anesthesia plan was to use monitored anesthesia care (MAC). - Immediately prior to administration of medications, the patient was re-assessed for adequacy to receive sedatives. - The heart rate, respiratory rate, oxygen saturations, blood pressure, adequacy of pulmonary ventilation, and response to care were monitored throughout the procedure. - The physical status of the patient was re-assessed after the procedure. After I obtained informed consent, the scope was passed under direct vision. Throughout the procedure, the patient's blood pressure, pulse, and oxygen saturations were monitored continuously. The scope was introduced through the anus and advanced to the terminal ileum. The colonoscopy was performed without difficulty. The patient tolerated the procedure well. The quality of the bowel preparation was adequate to identify polyps 6 mm and larger in size. Findings: The perianal and digital rectal examinations were normal. Pertinent negatives include normal sphincter tone. The terminal ileum appeared normal. Internal hemorrhoids were found during retroflexion. The hemorrhoids were mild. The exam was otherwise without abnormality. Impression: - The examined portion of the ileum was normal. - Internal hemorrhoids. - The examination was otherwise normal. - No specimens collected. Recommendation: - [facility]. - Advance diet as tolerated today. - Perform CT scan (computed tomography) of the abdomen with contrast at appointment to be scheduled (evaluation for evidence of a small bowel mass). There was no evidence of a gastrointestinal source of the patient's anemia seen on today's exam.. - Repeat colonoscopy in 1 year because the bowel preparation was suboptimal. Sagrario Carson D.O. Sagrario Carson, 05/26/2019 1:02:56 PM This report has been signed electronically. Note Initiated On: 05/26/2019 12:10 PM Number of Addenda: 0 I attest to the content of the Intraoperative Record and orders documented therein, exceptions below {[id number]}
--- NOTE | 2019-05-26 13:03 | Communication Note ---
Date of Service: May 26, 2019 The patient underwent upper endoscopy and colonoscopy today. The upper endoscopy was notable for mild gastritis but was otherwise unremarkable. The c olonoscopy was notable for internal hemorrhoids. There was no obvious source of the gastrointestinal source of her anemia. Perhaps the patient would benefit from a CT of the abdomen to evaluate for evidence of a small bowel mass. If this is negative I would then suggest looking elsewhere for source of anemia, perhaps nutritional HEEL SEAT SANDER causes or urinary causes. As the patient's bowel preparation was suboptimal she will need a repeat colonoscopy in 1 year.
[2019-05-26] MEDS ORDERED: IOVERSOL 100ml IV PRN (15:48)
--- NOTE | 2019-05-26 16:07 | CT Scan Report ---
CT abd pelvis oral and IV con CLINICAL HISTORY: 64 years-old Female presenting with concern for small bowel mass. TECHNIQUE: Multidetector CT of the abdomen and pelvis was performed after the administration of oral and intravenous contrast. IV contrast: 95 mL of Optiray 320. One or more dose lowering techniques wer e used consistent with the principles of ALARA (as low as reasonably achievable), including automatic exposure control, mA or kV adjustment to individual patient size, and/or use of iterative reconstruc tion. COMPARISON: None. CT DOSE (mGy.cm): The estimated cumulative dose is 712.30 mGycm. FINDINGS: Gasket Notcher topogram: Unremarkable. Lung bases: Normal heart size. No pericardial or pleural effusion. Minimal dependent changes either a telectasis or postinfectious or postinflammatory. Liver: Normal morphology. No liver lesion. Patent hepatic vasculature. Biliary: No intrahepatic or extrahepatic biliary ductal dilatation. Normal gallbladder. Pancreas: Mild parenchymal atrophy. Spleen: Normal. Adrenal glands: Normal. Kidneys and ureters: Normal. No hydronephrosis. Bladder: Incompletely evaluated secondary to underdistention. Pelvic organs: Uterus atrophic compatible with the postmenopausal state. The left ovary may contain a 2 cm cyst. The right ovary is not well visualized and likely atrophic. Bowel: Post surgical changes of appendectomy. No convincing evidence of a bowel mass or pathologic wa ll thickening. No bowel obstruction. Peritoneal cavity: No free fluid or intraperitoneal gas. Lymph nodes: Scattered prominent lymph nodes near the gastroesophageal junction as well as within the gastrohepatic ligament. These are subcentimeter and nonspecific. No pathologically enlarged lymph no roxy in the abdomen or pelvis. Vasculature: Atherosclerosis of the abdominal aorta. Ectasia of the infrarenal abdominal aorta measur ing 2.1 cm in diameter IVC patent. Abdominal wall: Alteration of the left anterior subcutaneous fat with mild overlying skin thickening. Musculoskeletal: Fusion hardware in the posterior elements/interspinous region of the lower lumbar sp ine. IMPRESSION: 1. No convincing evidence of a small bowel mass or other pathologic bowel wall thickening. No acute intra-abdominal pathology. 2. Prominent lymph nodes in the GE junction and gastroesophageal region. These are nonspecific and s ubcentimeter. These could be reactive. Consider 3-6 month follow-up CT to ensure resolution. If there is a history of malignancy, these are suspicious. 3. 2 cm left ovarian cyst is almost certainly benign. This can be reassessed on follow-up. 4. Ectasia of the infrarenal abdominal aorta measuring 2.1 cm. Attention on follow-up. Electronically signed by: Pedro Baumann M.D. 05/26/2019 4:06 PM
--- NOTE | 2019-05-26 16:13 | Anesthesiology Progress Note ---
Date of Service May 26, 2019 Anesthesia Post Procedure Vital Signs Vital Signs: Temp Pulse Resp BP Pulse Ox 05/26/19 15:17 36.5 C 80 19 123/70 100 05/26/19 13:48 36.4 C L 81 18 143/76 H 05/26/19 13:34 83 18 121/82 97 05/26/19 13:19 84 18 119/53 L 98 05/26/19 13:04 36.0 C L 87 18 102/58 L 96 05/26/19 11:57 36.6 C 77 20 116/100 100 05/26/19 07:50 36.7 C 83 18 125/82 96 05/26/19 04:23 36.5 C 93 H 18 132/80 96 05/25/19 23:49 36.7 C 102 H 18 96/60 L 95 05/25/19 19:15 36.6 C 71 18 134/68 96 Transfer of Care Handoff Completed per policy Notes Mental Status: alert / awake / arousable Patient Amnestic to Procedure: Yes Nausea / Vomiting: adequately controlled Pain: adequately controlled Airway Patency, RR, SpO2: stable & adequate BP & HR: stable & adequate Hydration State: stable & adequate Anesthetic Complications: no major complications apparent and Pt Satisfied with anesthetic care
[2019-05-26] MEDS: ATORVASTATIN 40 MG TAB PO SCH (21:47)
[2019-05-26] MEDS: DONEPEZIL HCL 10 MG TAB PO SCH (21:48)
[2019-05-26] MEDS: LORATADINE 10 MG TAB PO SCH (21:48)
[2019-05-26] MEDS: ROPINIROLE HCL 0.25 MG TABLET PO SCH (21:49)
[2019-05-26] MEDS: MIRTAZAPINE TAB 15 MG TAB PO SCH (21:50)
[2019-05-26] MEDS: PANTOprazole 40 MG TAB PO SCH (21:51)
[2019-05-27] MEDS: SODIUM CHLORIDE 0.9% 1000ML 1,000 ML IV SCH (00:58)
[2019-05-27] MEDS: LEVOTHYROXINE SODIUM 88 MCG TABLET PO SCH (05:56)
[2019-05-27] MEDS ORDERED: SODIUM CHLORIDE 0.9% 250 ML IV PRN (07:31)
--- NOTE | 2019-05-27 07:43 | Gastroenterology Progress Note ---
Date of Service May 27, 2019 Assessment & Plan (1) Anemia: 1. Recommend EUS of the prominent lymph nodes of the GE junction region. Will be scheduled as an OP. Our office will contact Ms. Orona to arrange. 2. Consider hem/onc consult to further work up anemia. 3. GI will sign off. Please notify us if new, worsening GI issues. Present on Admission?: Yes Supervising Physician Co-Signing Physician Notes I saw and evaluated the patient. There are number of questions with regard to small paraesophageal lymph nodes. There is no obvious mass seen during her upp er endoscopy nor her colonoscopy. Perhaps an endoscopic ultrasound would be beneficial as an outpatient. Given the patient's anemia I would highly recommend that she be seen by medical oncology Subjective Ms. Mike Orona is a 64 yr old female who underwent EGD, colonoscopy and CT abd/pelvis yesterday for anemia. Significant findings include gastritis, internal hemorrhoids, CT with enlarged lymph nodes near the GE junction with suggestion f/u in 3 months. None of these findings clearly explain the anemia. Hb 8.7 on arrival ->7.2 today. No gross bleeding. No transfusions. Review of Systems Review of Systems: ROS: Gen: + weakness, no fevers, no weight loss Eyes: No eye redness, or pain, no recent vision changes Resp: No SOB, no cough Cardio: No palpitations/irregular beats, no chest pain GI: No abdominal pain, no nausea/vomiting : Denies pain on urination Skin: No jaundice, itching or new rashes Physical Exam Constitutional: WD/WN, vitals as above Eyes: PERRL, conjunctivae normal, anicteric sclerae ENMT: external ear and nose normal, oropharynx normal Neck: trachea midline, no thyromegaly Respiratory: normal respiratory effort, lungs clear to auscultation Cardiovascular: Rate/Rhythm: regular rate and regular rhythm Heart Sounds: + murmur (2/6 systolic murmur, loudest at left sternal border and apex) Vessels: no JVD Gastrointestinal (Abdomen): normal bowel sounds, soft, nontender, no hepatosplenomegaly Skin: no rashes, warm and dry Neurologic: Speech / Cognition: + abnormal speech (Difficulty word finding; speech slightly garbled.) right sided weakness (chronic) Psychiatric: A+Ox3, euthymic affect Eye Contact: good eye contact Results & Data Vital Signs (Past 12 Hours) Vital Signs Temp Pulse Pulse Resp BP Pulse Ox 05/27/19 04:00 36.6 C 92 H 18 110/68 98 05/27/19 00:00 93 H 05/26/19 23:40 36.6 C 91 H 18 119/78 98 Laboratory Results Hb 8.2 (8.7 on arrival), BUN 4. Diagnostic Findings EGD 05/26: - Normal esophagus. - Z-line regular, 35 cm from the incisors. - Gastritis. Biopsied. - Normal examined duodenum. Biopsied. Colonoscopy 05/26: - The examined portion of the ileum was normal. - Internal hemorrhoids. - The examination was otherwise normal. - No specimens collected. CT abd/pelvis with IV/oral contrast: 05/26 1. No convincing evidence of a small bowel mass or other pathologic bowel wall thickening. No acute intra-abdominal pathology. 2. Prominent lymph nodes in the GE junction and gastroesophageal region. These are nonspecific and subcentimeter. These could be reactive. Consider 3-6 month follow-up CT to ensure resolution. If there is a history of malignancy, these are suspicious. 3. 2 cm left ovarian cyst is almost certainly benign. This can be reassessed on follow-up. 4. Ectasia of the infrarenal abdominal aorta measuring 2.1 cm. Attention on follow-up.
[2019-05-27] MEDS: INSULIN ASPART 100 UNITS/ML 3 ML PEN SC SCH ×3 (08:07→16:51)
[2019-05-27] MEDS: INSULIN GLARGINE SOLOSTAR 100 UNITS/ML 3 ML PEN SC SCH (08:08)
[2019-05-27 08:24] LABS: Hemoglobin 8.2 g/dL (12.0-16.0)
[2019-05-27] MEDS: VENLAFAXINE HCL XR 75 MG CAPXR PO SCH (08:59)
[2019-05-27] MEDS: PANTOprazole 40 MG TAB PO SCH (08:59)
[2019-05-27] MEDS: CHOLECALCIFEROL 1,000 UNITS TAB PO SCH (08:59)
[2019-05-27] MEDS: cefTRIAXone SODIUM 1,000 MG in DEXTROSE 5% 50 ML IV SCH (08:59)
[2019-05-27] MEDS: LOSARTAN POTASSIUM 25 MG TAB PO SCH (09:00)
[2019-05-27] MEDS: EZETIMIBE 10 MG TABLET PO SCH (09:00)
[2019-05-27] MEDS: FERROUS SULFATE 325 MG TAB PO SCH (09:00)
[2019-05-27 17:27] LABS: Hematocrit (blood only) 32.4 % (37-47); Hemoglobin 10.1 g/dL (12.0-16.0)
--- NOTE | 2019-05-27 19:33 | Discharge Summary ---
Date of Service May 27, 2019 Admission HPI Per Admitting Provider This is a 64-year-old female who has significant PMH of T2DM insulin dep, hx of CVA with residual aphasia/R sided weakness, carotid artery stenosis, L subclavian occlusion, HTN, HLD, COPD, Hypothyroidism, GERD, Scleroderma/CREST syn, Mood disorder, Depression with anxiety who presents to [facility] ED secondary to overall feeling weak and nauseous prior to arrival. She was further contacted by her PCP secondary to abnormal blood work including a hemoglobin of 8.7 which is decreased from 10.2 - 1 week prior. Over the past 2 weeks she admits to intermittent nausea. She had one episode of br own emesis this morning. She further elicits to being very lightheaded with standing. She denies any other recent illness, fever, chills, sweats, syncope, chest pain, shortness of breath, FLORES, palpitations, hemoptysis, URI symptoms or cough, abdominal pain, diarrhea, melena, hematochezia, dysuria, increased urgency or frequency with urination, hematuria. Per outpatient records she did have evaluation on 05/21 by [facility] [facility] [facility] due to reports of postmenopausal vaginal bleeding. She has been postmenopausal for approximately 30 years. Per report she was having 2 months of intermittent vaginal bleeding. Pt currently denies this. She has transvaginal U/S which was negative. She further underwent endometrial biopsy which was negative as well. She had iron panel done on 05/14 which revealed ferritin 23.8, iron 48, saturation 14%, TIBC 333, folic acid 17.2, vitamin B12 772. She has been placed on oral ferrous sulfate. She denies any history of EGD or colonoscopy in the past. She is currently on Plavix and aspirin therapy secondary to history of CVA and carotid artery stenosis. In ED patient was hypertensive and tachycardic. She was otherwise afebrile and saturating well on room air. Her orthostatics were as follows lying BP 112/63, pulse 96; sitting BP 131/71, pulse 104, she did not tolerate standing secondary to lightheadedness. Her hemoglobin and hematocrit 30.7 and 20.3, WBC 11.41, platelet 510. Her CMP was relatively unremarkable, TSH mildly low 0.081, normal free T4. Troponin undetectable. Chest x-ray: Revealed no acute process Urinalysis: +2 RBC, +1 Leukocytes, numerous epithelial cells, negative bacteria. She was referred for admission due to persistent weakness, lives alone at home and symptomatic anemia. Admission Exam Per Admitting Provider Constitutional: Petite, thin, female, appears older than stated age, pale, vitals as above, NAD, sitting up in bed, pleasant, conversing easily, mild dysarthria Head: Normocephalic, Atraumatic Eyes: PERRL, conjunctivae normal, anicteric sclerae ENMT: external ear and nose normal, oropharynx normal Neck: trachea midline, no thyromegaly normal visual inspection Respiratory: normal respiratory effort, lungs clear to auscultation, no wheeze, rales, rhonchi. Normal insp/exp effort, no accessory muscle use Cardiovascular: Tachycardic rate, regular rhythm, no murmur, no edema Vessels: no JVD, bilateral carotid bruit Chest: normal inspection of chest Abdomen: normal bowel sounds, soft, nontender, no hepatosplenomegaly Musculoskeletal: no cyanosis or clubbing, extremities motor strength left upper and left lower extremity 5/5 ; right upper and right lower extremity 4/5 Skin: no rashes, warm and dry normal turgor Neurologic: PERRL, EOMI, accommodation nl, no face palsy, +dysarthria CN's II- XI intact bilaterally and moves all extremities Psychiatric: A+Ox3, euthymic affect Lymphatic: no cervical or axillary lymphadenopathy : deferred Principal Diagnosis Symptomatic anemia Discharge Exam Constitutional: Thin pale female pale sitting up in bed in NAD, pleasant, mild dysarthria noted (chronic) Head: Normocephalic, Atraumatic Eyes: PERRL, EOMI, conjunctivae normal, anicteric sclerae ENMT: external ear and nose normal, oropharynx normal Neck: trachea midline, no thyromegaly normal visual inspection Respiratory: normal respiratory effort, lungs clear to auscultation, no wheeze, rales, rhonchi. Cardiovascular: rrr, no murmur, no edema Vessels: no JVD Chest: normal inspection of chest Abdomen: normal bowel sounds, soft, nontender, nondistended, no guarding Musculoskeletal: no cyanosis or clubbing, moves all 4 extremities spontaneously Skin: no rashes, warm and dry, multiple tattoos Neurologic: PERRL, EOMI, accommodation nl, no face palsy, +dysarthria CN's II- XI intact bilaterally and moves all extremities Psychiatric: A+Ox3, euthymic affect Lymphatic: no cervical or axillary lymphadenopathy Discharge Data Allergies Allergy/AdvReac Type Severity Reaction Status Date / Time clarithromycin AdvReac Unknown FEEL WEIRD Verified 05/23/19 12:32 Consultations 05/23/19 13:47 ED Decision to Admit Stat 05/23/19 14:41 Consult Gastroenterology Routine 05/23/19 15:58 Consult Case Management - Discharge Planning Routine Procedures Performed Operation Date: 05/26/19 16:30 Actual Procedures p EGD Biopsy Cytology - [facility] Findings: The examined esophagus was normal. The Z-line was regular and was found 35 cm from the incisors. Diffuse mild inflammation characterized by erythema and granularity was found in the entire examined stomach. Biopsies were taken with a cold forceps for histology. The pathology specimen was placed into Bottle B. Estimated blood loss was minimal. The examined duodenum was normal. Biopsies were taken with a cold forceps for histology. The pathology specimen was placed into Bottle A. Estimated blood loss was minimal. Impression: - Normal esophagus. - Z-line regular, 35 cm from the incisors. - Gastritis. Biopsied. - Normal examined duodenum. Biopsied. s Colonoscopy - Sag[facility] Carson Findings: The perianal and digital rectal examinations were normal. Pertinent negatives include normal sphincter tone. The terminal ileum appeared normal. Internal hemorrhoids were found during retroflexion. The hemorrhoids were mild. The exam was otherwise without abnormality. Impression: - The examined portion of the ileum was normal. - Internal hemorrhoids. - The examination was otherwise normal. - No specimens collected. Recommendation: - [facility]. - Advance diet as tolerated today. - Perform CT scan (computed tomography) of the abdomen with contrast at appointment to be scheduled (evaluation for evidence of a small bowel mass). There was no evidence of a gastrointestinal source of the patient's anemia seen on today's exam.. - Repeat colonoscopy in 1 year because the bowel preparation was suboptimal. Ordered Studies 05/26/19 13:04 CT abd pelvis oral and IV con Routine IMPRESSION: 1. No convincing evidence of a small bowel mass or other pathologic bowel wall thickening. No acute intra-abdominal pathology. 2. Prominent lymph nodes in the GE junction and gastroesophageal region. These are nonspecific and subcentimeter. These could be reactive. Consider 3-6 month follow-up CT to ensure resolution. If there is a history of malignancy, these are suspicious. 3. 2 cm left ovarian cyst is almost certainly benign. This can be reassessed on follow-up. 4. Ectasia of the infrarenal abdominal aorta measuring 2.1 cm. Attention on f ollow-up. Hospital Course (1) Symptomatic anemia: This is a 64-year-old female who has significant PMH of T2DM insulin dep, hx of CVA with residual aphasia/R sided weakness, carotid artery stenosis, L subclavian occlusion, HTN, HLD, COPD, Hypothyroidism, GERD, Scleroderma/CREST syn, Mood disorder, Depression with anxiety who presents to [facility] ED secondary to overall feeling weak and nauseous prior to arrival. In ED patient was hypertensive and tachycardic. She was otherwise afebrile and saturating well on room air. Her orthostatics were as follows lying BP 112/63, pulse 96; sitting BP 131/71, pulse 104, she did not tolerate standing secondary to lightheadedness. Her H&H was 8.7/28.3, WBC 11.41, platelet 510. - FOBT negative outpt, but repeated on admission and positive, GI consulted, plan for EGD and colonoscopy on Sunday (05/26) - UA on admission 2+ RBC - on oral iron supplement per PCP - on ASA/Plavix for hx of CVA and carotid artery stenosis, held during admission - per GI consult note, pt had EGD in September 2016 for iron deficiency anemia with findings of chronic gastritis. On colonoscopy at the same time, there was one solitary ulcer at the IC valve, also internal hemorrhoids. Repeat colonoscopy in December 2016 with normal IC valve area. Outpt vaginal bleeding workup complete - felt not to be source of bleeding Yesterday Hgb 7.2, stable, unable to transfuse d/t no blood available for the pt at this time (anti-Lukas). Coomb's negative Blood bank notified about the need. - per blood bank pt with very rare blood antigen; therefore no PRBC can be on hold - pt is now s/p transfusion of 1 unit of pRBC, feeling well, able to ambulate w/o any symptoms such as lightheadedness, chest pain, shortness of breath - pt is now s/p EGD and colonoscopy w/ GI (05/26/2019) - pls see results. Pt will need repeat colonoscopy in 1 year[address] GI also recommended CT abdomen to evaluate small bowel for poss. masses, enlarged lymph nodes were noted. Pt is to follow up with GI for ultrasound study. Biopsy was obtained during EGD, results pending. - microscopic hematuria on admission - recommend repeat on follow up - consider hematology evaluation - Eval as outpt iron study on 05/14 - Ferritin 23.8, iron 48, TIBC 333, Tsat 14% - iron studies repeated here - iron 347, TIBC 370, transferrin 257, ferritin 20.3 - LDH 153 (nl) - Peripheral smear path consult-peripheral smear shows normochromic, normocytic appearing erythrocytes with anisopoikilocytosis including increased polychromatophilic cells (a subset of reticulocytes). No significant number of schistocytes or spherocytes is identified. Leukocytes appear mildly in number with increased monocytes. Platelets are increased in number and are unremarkable in appearance. Associated WBC 11.4, ANC 8.4, IG 0.8, Hgb 8.7, normal MCV and 510k platelets. Reticulocytes are increased. Iron is elevated and the CHRISSY is negative. Overall findings are nonspecific mildly left-shifted leukocytosis, normocytic anemia, and thrombocytosis. No overt changes of a myelodysplastic syndrome, MPN or hemolytic anemia are seen. (Pedro Lucia MD). (2) Generalized weakness: likely secondary to symptomatic anemia as above (3) DM type 2 (diabetes mellitus, type 2): Last A1C 5.4 Pt on Insulin/Metformin regimen as outpt Lantus/Novolog per sliding scale would recommend looser control given pt age and co-morbidities to prevent hypoglycemia (4) Hypothyroidism: TSH low at 0.081, but Free T4 WNL continue levothyroxine (5) Hypertension: blood pressure elevated in ED pt on losartan as outpt monitor - if remains elevated consider titrating losartan (6) Hyperlipidemia: continue statin (7) Carotid stenosis: hold asa/plavix for now until anemia explained continue statin (8) Mood disorder: mood stable continue venlafaxine, mirtazapine, trazodone (9) CREST syndrome: supportive care (10) Microscopic hematuria: Noted on urinalysis Recommend repeat during follow-up as outpatient (11) DVT prophylaxis: SCD/TEDS Follow up: PCP Dr. Macdonald upon discharge Total Time Total Time Spent Total Time Spent (In Minutes): 40 Total Time Includes: Examination of the Patient, Discharge Planning, Medication Reconciliation and Communication With Other Providers Discharge Plan Discharge Items Patient Disposition: Home - Self-Care Reason For Visit: SYMPTOMATIC ANEMIA, WEAKNESS Discharge Diagnosis: Symptomatic anemia Activity: Resume your previous activity Activity Comment: as tolerated, pace yourself and make sure to ask for help as needed Non-emergency contact: Primary Care Provider Call non-emergency contact if: you have any medication questions and your symptoms worsen Follow-up/Referrals: Oseas Macdonald MD [Primary Care Provider] - Diet: Carb Consistent or DM2 Addtl Attending Provider Instructions: Make sure to follow up with your primary care provider this week. You will likely need another blood work done to monitor your anemia. We held your aspirin and plavix on this admission due to concern for bleeding. You can restart taking your aspirin. Please make sure to discuss with your primary care doctor if / when you can re-start taking your plavix (clopidogrel). You will follow up with gastroenterology for ultrasound study, they will contact you about the appointment. Pending Studies at Discharge: No Stand-Alone Forms: My [facility] [place], Smoking Cessation Medications and DC Order Prescriptions: Continued Basaglar KwikPen U-100 Insulin 100 unit/mL (3 mL) insulin pen 36 unit subcut QAM RF: 0 cholecalciferol (vitamin D3) [Vitamin D3] 2,000 unit Tablet 2,000 unit PO QAM RF: 0 atorvastatin 80 mg Tablet 80 mg PO HS RF: 0 venlafaxine 75 mg Tablet 75 mg PO QAM RF: 0 trazodone 50 mg Tablet 50 mg PO HS PRN (Reason: Pain) RF: 0 docusate calcium [Stool Softener] 240 mg Capsule 240 mg PO DAILY PRN (Reason: Constipation) RF: 0 donepezil 10 mg Tablet 10 mg PO HS RF: 0 aspirin [Aspirin Low Dose] 81 mg Tablet,Delayed Release (Dr/Ec) 81 mg PO QAM RF: 0 levothyroxine 88 mcg Tablet 88 mcg PO QAM RF: 0 mirtazapine 30 mg Tablet 30 mg PO HS RF: 0 ferrous sulfate 325 mg (65 mg iron) Tablet 325 mg PO QAM RF: 0 esomeprazole magnesium 40 mg Capsule,Delayed Release(Dr/Ec) 40 mg PO QAM RF: 0 ropinirole 0.5 mg Tablet 0.5 mg PO HS RF: 0 losartan 25 mg Tablet 25 mg PO QAM RF: 0 bisacodyl [Dulcolax (bisacodyl)] 5 mg Tablet,Delayed Release (Dr/Ec) 5 mg PO HS PRN (Reason: Constipation) RF: 0 metformin 500 mg Tablet Extended Release 24 Hr 1,500 mg PO QAM RF: 0 loratadine [Claritin] 10 mg Tablet 10 mg PO HS RF: 0 ezetimibe 10 mg Tablet 10 mg PO QAM RF: 0 ProAir RespiClick 90 mcg/actuation Aerosol Powdr Breath Activated 2 inh INHALATION QID RF: 0 Discontinued clopidogrel 75 mg Tablet 75 mg PO QAM RF: 0 Discharge Orders: Discharge Order (Routine); Ordered 05/27/19 Ordered By: Rafa Ramirez/Other Patient Handouts: Gastritis Tx Admission Data Admit Date/Time: 05/23/19 14:41 Attending Provider: Rafa Moreno Admit Provider: Mike Mir Primary Care Provider: Oseas Macdonald Other Providers: Eliud Martinez ; Mike Mir Other Interventions: Discharge Summary Assessment (RN) Last Done: 05/26/19 13:35
== END 2019-05-27 19:56 | disposition home or self-care (01) | DRG 812 ==
LOC: ED 11:34 → 2S 14:41 → SUATTDRO 14:41 → 2S 15:17

== ENCOUNTER 2023-07-31 09:37 | Inpatient (IN) ==
[2023-07-31 10:23] LABS: Basophils # (auto) 0.08 K/uL (0.00-0.20); Basophils % (auto) 0.6 %; Eosinophils # (auto) 0.07 K/uL (0.00-0.50); Eosinophils % (auto) 0.5 %; Hematocrit (blood only) 25.6 % (37.0-47.0); Hemoglobin 7.9 g/dl (12.0-16.0); Immature Granulocytes # (auto) 0.14 K/uL (0.01-0.20); Lymphocytes # (auto) 2.06 K/uL (1.20-3.40); Mean Corpuscular Hemoglobin 31.5 pg (25.0-34.0); Mean Corpuscular Hgb Conc 30.9 g/dL (32.0-36.0); Mean Platelet Volume 10.6 fL (9.4-12.4); Monocytes # (auto) 1.15 K/uL (0.11-0.59); Monocytes % (auto) 8.4 %; Neutrophils # (auto) 10.26 K/uL (1.40-6.50); Neutrophils % (auto) 74.5 %; Nucleated RBC # (auto) 0.41 K/uL (0.00-0.12); Platelet Count 404 K/uL (130-400); RDW Coefficient of Variation 21.2 % (11.5-14.5); RDW Standard Deviation 80.2 fL (36.4-46.3); Red Blood Count 2.51 M/uL (4.20-5.40); White Blood Count 13.76 K/ul (4.8-10.8)
[2023-07-31] MEDS ORDERED: SODIUM CHLORIDE 0.9% 1,000 ML IV ONE ×2 (10:35→12:37)
[2023-07-31 10:36] LABS: Albumin Globulin Ratio 1.3 (0.9-2); Albumin Level 3.9 gm/dl (3.4-5.0); BUN Creatinine Ratio 31.8 (10-20); Bilirubin,Total 0.5 mg/dl (0.2-1.0); Calcium 8.9 mg/dl (8.6-10.3); Creatinine Clr Calc Pharmacy 55.6 ml/min; Est GFR (African American) 78.2 ml/min; Est GFR (Non-African American) 67.5 ml/min; Globulin 2.9 gm/dl (2.5-4.0); Potassium 4.4 mmol/L (3.5-5.1); Total Protein 6.8 gm/dl (6.0-8.3)
--- NOTE | 2023-07-31 10:40 | Emergency Department Note ---
Impression & Plan Sepsis associated hypotension, Acute UTI ED Provider Note NAME: MAURISIO GIBSON AGE: 68 SEX: F : 1955 ARRIVES VIA: Ambulance INFORMANT: Patient, ED PROVIDER(S): Rhonda Mata MD CHIEF COMPLAINT: Fatigue HPI: This is an 68-year-old female history of CVA stress blood right-sided weakness and mild aphasia, diabetes presenting for generalized weakness. Since Sunday patient has felt generally unwell where she has had increasing fatigue, generalized weakness, decreased appetite. She notes nasal congestion as well. She notes no shortness of breath or chest pain at this time. She notes baseline neurologic symptoms including right-sided weakness and baseline aphasia. Otherwise she has not had any recent nausea, vomiting, diarrhea. She notes no abdominal pain, back pain. ROS: See above HPI for pertinent positives & negatives. A total of 10 systems reviewed and were otherwise negative. PAST MEDICAL HISTORY: See Below PAST SURGICAL HISTORY: See Below FAMILY HISTORY: See Below SOCIAL HISTORY: See Below HOME MEDICATIONS: See Below ALLERGIES: See Below VITALS: See Below PHYSICAL EXAMINATION: General: resting comfortably in no acute distress Head: Normocephalic and atraumatic Eyes: Normal inspection, extraocular muscles intact Ear, nose, throat: Normal external exam Neck: Normal range of motion Respiratory: lungs clear to auscultation bilaterally Cardiovascular: Regular rate/rhythm, no murmur GI: soft, nontender, no guarding or rebound Extremities: nontender, moves all extremities Neuro: The patient awake and alert, appropriately conversive, chronic right upper and lower extremity weakness Skin: Warm, dry, and intact MEDICAL DECISION MAKING: This is a 68-year-old female presenting for generalized weakness. Patient has a constellation of viral type symptoms. Patient is also mildly hypotensive. Consider sepsis. -Will do fluid resuscitation at this time and evaluate for response -Blood work ordered including lactic acid level, CBC, BMP, chest x-ray -Lactic acid level significant elevated at 6 -Leukocytosis noted at 13.76, anemia at 7.9 -Electrolytes within normal limits, no LFT or lipase elevations -Patient is viral negative on upper respiratory panel -Chest Xray independently interpreted by me showing no pneumothorax, focal opacity, or pleural effusions. -Due to elevated lactate, leukocytosis and mild hypotension, will order resuscitation amount of fluids as well as broad-spectrum antibiotics -After fluid resuscitation, patient evaluated and has improvement in her blood pressures and clinical status -Eventually patient able to urinate showing UTI consistent with urosepsis Differential diagnosis: Viral syndrome, sepsis, UTI, cholecystitis, appendicitis, pneumonia ER treatment provided: See below Diagnostics interpreted by me: ECG: ECG independently interpreted by me with normal sinus rhythm, rate of 94, normal axis, normal FL, normal QRS, normal QTc, no ST segment elevations consistent with STEMI criteria, T wave versions in aVL Cardiac Monitoring: An order was placed for continuous cardiac monitoring. The monitor shows a rate of 94 with sinus rhythm. Laboratory studies: As stated above and show below. Imaging studies: See below. Critical Care Note: I have personally spent 45 minutes of critical care time in the direct management of this patient. This includes bedside care, interpretation of diagnostic studies, and testing, discussion with consultants, patient, and family members, and other required patient management activities. This 45 minutes is in excess of all separately billable procedures. 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 Has residual dysphagia Gastroparesis Esophagitis Carotid stenosis Right carotid artery 70 to 90% stenosis of internal carotid, left carotid artery 50 to 69% Hyperlipidemia DJD (degenerative joint disease), lumbar DM type 2 (diabetes mellitus, type 2) IDDM Hypothyroidism PVD (peripheral vascular disease) CREST syndrome Anemia Surgical History History of cataract surgery left History of tooth extraction Hx of esophagogastroduodenoscopy Hx of colonoscopy H/O foot surgery right History of hysterectomy History of spinal fusion lumbar S/P appendectomy (10/11/12) Family History Mother Breast cancer Uterine cancer Father Lung cancer Emphysema/COPD Social History Smoking Status: Never smoker Second Hand Exposure: No; Do You Dip or Chew Tobacco: No; Hx Alcohol Use: No Hx Substance Use: No Preferred Language: Malagasy Communication Ability: Effective Imaging Scheduler Required: No Beliefs That Will Affect Care: None marital status: Single Current Living Situation: Alone How many Children do You have: 1 Feels Safe at Home: Yes Assistive Devices: Denture - Upper, Denture - Lower, Glasses and Walker Allergies Allergies Allergy/AdvReac Type Severity Reaction Status Date / Time clarithromycin AdvReac Unknown FEEL WEIRD Verified 07/31/23 11:30 Home Meds Home Medications Medication Instructions Recorded Confirmed atorvastatin 80 mg tablet 80 mg PO HS 07/14/18 07/31/23 bisacodyl 5 mg tablet,delayed 5 mg PO HS PRN Constipation 07/14/18 07/31/23 release (Dulcolax (bisacodyl)) docusate calcium 240 mg capsule 240 mg PO DAILY PRN Constipation 07/14/18 07/31/23 (Stool Softener (docusate calcium)) donepezil 10 mg tablet 10 mg PO HS 07/14/18 07/31/23 ezetimibe 10 mg tablet 10 mg PO QAM 07/14/18 07/31/23 ferrous sulfate 325 mg (65 mg 650 mg PO QAM 07/14/18 07/31/23 iron) tablet loratadine 10 mg tablet (Claritin) 10 mg PO HS PRN allergies 07/14/18 07/31/23 losartan 25 mg tablet 12.5 mg PO QAM 07/14/18 07/31/23 metformin 500 mg tablet,extended 1,000 mg PO BID 07/14/18 07/31/23 release 24 hr mirtazapine 30 mg tablet 30 mg PO HS 07/14/18 07/31/23 ropinirole 0.5 mg tablet 0.5 mg PO HS 07/14/18 07/31/23 trazodone 50 mg tablet 50 mg PO HS PRN Pain 07/14/18 07/31/23 venlafaxine 75 mg tablet 75 mg PO QAM 07/14/18 07/31/23 insulin glargine 100 unit/mL (3 24 unit subcut QAM 05/12/19 07/31/23 mL) subcutaneous pen (Basaglar KwikPen U-100 Insulin) clopidogrel 75 mg tablet (Plavix) 75 mg PO QAM 08/25/19 07/31/23 dulaglutide 0.75 mg/0.5 mL 0.75 mg subcut WK 07/31/23 07/31/23 [facility] fluticasone propionate 50 2 spray intranasal DAILY 07/31/23 07/31/23 mcg/actuation nasal spray,suspension gabapentin 300 mg capsule 300 mg PO BID 07/31/23 07/31/23 levothyroxine 50 mcg tablet 50 mcg PO DAILY 07/31/23 07/31/23 pantoprazole 40 mg tablet,delayed 40 mg PO QAM 07/31/23 07/31/23 release Results & Data (ED) Vital Signs Vital Signs - 24 hr 07/31/23 09:43 07/31/23 09:45 07/31/23 09:50 Temperature 36.4 C L Temperature Source Oral Pulse Rate 94 H 91 H 92 H Pulse Rate [Apical] Pulse Rate from SpO2 Sensor Pulse Rhythm Regular Respiratory Rate 18 20 Respiratory Effort / Characteristics Non-Labored Spontaneous Respiratory Depth Normal Respiratory Pattern Blood Pressure 94/40 L Blood Pressure [Right Arm] Blood Pressure Mean 58 Blood Pressure Mean [Right Arm] Pulse Oximetry 95 Oxygen Delivery Method Room Air Sepsis Recent Fever Within 48 Hours No Sepsis New/Unexplained Change in Mental Status No Sepsis Action Taken by Nursing No Action Required 07/31/23 09:50 07/31/23 09:50 07/31/23 09:53 Temperature Temperature Source Pulse Rate 94 H 93 H Pulse Rate [Apical] Pulse Rate from SpO2 Sensor 96 H Pulse Rhythm Respiratory Rate 16 16 Respiratory Effort / Characteristics Respiratory Depth Respiratory Pattern Blood Pressure 75/48 L Blood Pressure [Right Arm] Blood Pressure Mean 67 Blood Pressure Mean [Right Arm] Pulse Oximetry 94 Oxygen Delivery Method Sepsis Recent Fever Within 48 Hours Sepsis New/Unexplained Change in Mental Status Sepsis Action Taken by Nursing 07/31/23 09:53 07/31/23 10:00 07/31/23 10:00 Temperature Temperature Source Pulse Rate 90 Pulse Rate [Apical] Pulse Rate from SpO2 Sensor 100 H Pulse Rhythm Respiratory Rate 15 Respiratory Effort / Characteristics Respiratory Depth Respiratory Pattern Blood Pressure 94/40 L 77/51 L Blood Pressure [Right Arm] Blood Pressure Mean 49 67 Blood Pressure Mean [Right Arm] Pulse Oximetry 94 Oxygen Delivery Method Sepsis Recent Fever Within 48 Hours Sepsis New/Unexplained Change in Mental Status Sepsis Action Taken by Nursing 07/31/23 10:29 07/31/23 10:29 07/31/23 10:30 Temperature Temperature Source Pulse Rate 92 H 97 H Pulse Rate [Apical] Pulse Rate from SpO2 Sensor 94 H 96 H Pulse Rhythm Respiratory Rate 18 17 Respiratory Effort / Characteristics Respiratory Depth Respiratory Pattern Blood Pressure 81/51 L Blood Pressure [Right Arm] Blood Pressure Mean 61 Blood Pressure Mean [Right Arm] Pulse Oximetry 92 95 Oxygen Delivery Method Sepsis Recent Fever Within 48 Hours Sepsis New/Unexplained Change in Mental Status Sepsis Action Taken by Nursing 07/31/23 11:00 07/31/23 11:30 07/31/23 11:30 Temperature Temperature Source Pulse Rate 93 H 88 Pulse Rate [Apical] Pulse Rate from SpO2 Sensor 97 H 89 Pulse Rhythm Respiratory Rate 18 14 Respiratory Effort / Characteristics Respiratory Depth Respiratory Pattern Blood Pressure 87/62 L Blood Pressure [Right Arm] Blood Pressure Mean 73 Blood Pressure Mean [Right Arm] Pulse Oximetry 95 Oxygen Delivery Method Sepsis Recent Fever Within 48 Hours Sepsis New/Unexplained Change in Mental Status Sepsis Action Taken by Nursing 07/31/23 11:59 07/31/23 11:59 07/31/23 12:07 Temperature Temperature Source Pulse Rate 96 H 119 H Pulse Rate [Apical] Pulse Rate from SpO2 Sensor 92 H Pulse Rhythm Respiratory Rate 29 H 18 Respiratory Effort / Characteristics Respiratory Depth Respiratory Pattern Blood Pressure 90/64 L Blood Pressure [Right Arm] Blood Pressure Mean 72 Blood Pressure Mean [Right Arm] Pulse Oximetry 97 Oxygen Delivery Method Room Air Sepsis Recent Fever Within 48 Hours Sepsis New/Unexplained Change in Mental Status Sepsis Action Taken by Nursing 07/31/23 12:25 07/31/23 12:30 07/31/23 12:31 Temperature Temperature Source Pulse Rate 93 H Pulse Rate [Apical] 94 H Pulse Rate from SpO2 Sensor 93 H Pulse Rhythm Respiratory Rate 18 16 Respiratory Effort / Characteristics Non-Labored Respiratory Depth Normal Respiratory Pattern Regular Blood Pressure 112/63 Blood Pressure [Right Arm] 90/64 L Blood Pressure Mean 89 Blood Pressure Mean [Right Arm] 72 Pulse Oximetry 99 92 Oxygen Delivery Method Room Air Sepsis Recent Fever Within 48 Hours Sepsis New/Unexplained Change in Mental Status Sepsis Action Taken by Nursing 07/31/23 12:31 07/31/23 13:00 07/31/23 13:00 Temperature Temperature Source Pulse Rate 95 H 92 H Pulse Rate [Apical] Pulse Rate from SpO2 Sensor 95 H 91 H Pulse Rhythm Respiratory Rate 21 15 Respiratory Effort / Characteristics Respiratory Depth Respiratory Pattern Blood Pressure 118/81 Blood Pressure [Right Arm] Blood Pressure Mean 106 Blood Pressure Mean [Right Arm] Pulse Oximetry 97 93 Oxygen Delivery Method Sepsis Recent Fever Within 48 Hours Sepsis New/Unexplained Change in Mental Status Sepsis Action Taken by Nursing Laboratory Data 07/31/23 09:43 07/31/23 09:43 Lab Results 07/31/23 07/31/23 07/31/23 Range/Units 09:41 09:43 11:37 WBC 13.76 H (4.8-10.8) K/ul RBC 2.51 L (4.20-5.40) M/uL Hgb 7.9 L (12.0-16.0) g/dl Hct 25.6 L (37.0-47.0) % MCV 102.0 H (80.0-100.0) fL MCH 31.5 (25.0-34.0) pg MCHC 30.9 L (32.0-36.0) g/dL RDW Std Deviation 80.2 H (36.4-46.3) fL RDW Coeff of Jj 21.2 H (11.5-14.5) % Plt Count 404 H (130-400) K/uL MPV 10.6 (9.4-12.4) fL Immature Gran % (Auto) 1.0 % Neut % (Auto) 74.5 % Lymph % (Auto) 15.0 % [place] % (Auto) 8.4 % Eos % (Auto) 0.5 % Baso % (Auto) 0.6 % Neut # (Auto) 10.26 H (1.40-6.50) K/uL Lymph # (Auto) 2.06 (1.20-3.40) K/uL [place] # (Auto) 1.15 H (0.11-0.59) K/uL Eos # (Auto) 0.07 (0.00-0.50) K/uL Baso # (Auto) 0.08 (0.00-0.20) K/uL Immature Gran # (Auto) 0.14 (0.01-0.20) K/uL Absolute Nucleated RBC 0.41 H (0.00-0.12) K/uL Nucleated RBC % (auto) 3.0 % Polychromasia 2+ Hypochromasia Present Anisocytosis Present VBG pH (7.36-7.41) VBG pCO2 (38-50) mmHg VBG pO2 mmHg VBG HCO3 mmol/L VBG O2 Saturation % VBG Base Excess mEq/L Sodium 135 L (136-145) mmol/L Potassium 4.4 (3.5-5.1) mmol/L Chloride 99 (98-107) mmol/L Carbon Dioxide 25 (21-32) mmol/L Anion Gap 11 (3-11) BUN 28 H (6-23) mg/dl Creatinine 0.88 (0.6-1.2) mg/dl Est Cr Clr Drug Dosing 55.6 ml/min Est GFR ( Amer) 78.2 ml/min Est GFR (Non-Af Amer) 67.5 ml/min BUN/Creatinine Ratio 31.8 H (10-20) Glucose 107 H (70-99(Fasting)) mg/dl Lactate 6.0 H* (0.4-2.0) mmol/L Calcium 8.9 (8.6-10.3) mg/dl Total Bilirubin 0.5 (0.2-1.0) mg/dl AST 26 (13-39) U/L ALT 22 (7-52) U/L Alkaline Phosphatase 62 (34-104) U/L Total Protein 6.8 (6.0-8.3) gm/dl Albumin 3.9 (3.4-5.0) gm/dl Globulin 2.9 (2.5-4.0) gm/dl Albumin/Globulin Ratio 1.3 (0.9-2) Lipase 26 (11-82) U/L Urine Color Urine Appearance (Clear) Urine pH (4.5-7.5) Ur Specific [place] (1.000-1.030) Urine Protein (Negative) Urine Glucose (UA) (Negative) Urine Ketones (Negative) Urine Blood (Negative) Urine Nitrite (Negative) Urine Bilirubin (Negative) Urine Urobilinogen (Negative) Ur Leukocyte Esterase (Negative) Urine WBC (Auto) (0-5) /hpf Urine RBC (Auto) (0-4) /hpf U Hyaline Cast (Auto) (0-5) /lpf U Epithel Cells (Auto) (0-5) /lpf Urine Bacteria (Auto) (Negative) Urine Crystals Calcium Oxalate Crystal (None Prsent) Adenovirus (PCR) Not Detected (NotDetected) B. pertussis DNA (PCR) Not Detected (NotDetected) B.parapertussis DNA PCR Not Detected (NotDetected) C. pneumoniae DNA (PCR) Not Detected (NotDetected) Coronavirus OC43 (PCR) Not Detected (NotDetected) Coronavirus HKU1 (PCR) Not Detected (NotDetected) Coronavirus 229E (PCR) Not Detected (NotDetected) SARS-CoV-2 (PCR) Not Detected (NotDetected) Coronavirus NL63 (PCR) Not Detected (NotDetected) Human Metapneumovir PCR Not Detected (NotDetected) Influenza Type A (PCR) Not Detected (NotDetected) Influenza Type B (PCR) Not Detected (NotDetected) M. pneumoniae (PCR) Not Detected (NotDetected) Parainfluenza 1 (PCR) Not Detected (NotDetected) Parainfluenza 2 (PCR) Not Detected (NotDetected) Parainfluenza 3 (PCR) Not Detected (NotDetected) Parainfluenza 4 (PCR) Not Detected (NotDetected) RSV (PCR) Not Detected (NotDetected) Entero/Rhino (PCR) Not Detected (NotDetected) 07/31/23 07/31/23 Range/Units 12:08 12:54 WBC (4.8-10.8) K/ul RBC (4.20-5.40) M/uL Hgb (12.0-16.0) g/dl Hct (37.0-47.0) % MCV (80.0-100.0) fL MCH (25.0-34.0) pg MCHC (32.0-36.0) g/dL RDW Std Deviation (36.4-46.3) fL RDW Coeff of Jj (11.5-14.5) % Plt Count (130-400) K/uL MPV (9.4-12.4) fL Immature Gran % (Auto) % Neut % (Auto) % Lymph % (Auto) % [place] % (Auto) % Eos % (Auto) % Baso % (Auto) % Neut # (Auto) (1.40-6.50) K/uL Lymph # (Auto) (1.20-3.40) K/uL [place] # (Auto) (0.11-0.59) K/uL Eos # (Auto) (0.00-0.50) K/uL Baso # (Auto) (0.00-0.20) K/uL Immature Gran # (Auto) (0.01-0.20) K/uL Absolute Nucleated RBC (0.00-0.12) K/uL Nucleated RBC % (auto) % Polychromasia Hypochromasia Anisocytosis VBG pH 7.34 L (7.36-7.41) VBG pCO2 46 (38-50) mmHg VBG pO2 27 mmHg VBG HCO3 25 mmol/L VBG O2 Saturation < 60.0 % VBG Base Excess -0.9 mEq/L Sodium (136-145) mmol/L Potassium (3.5-5.1) mmol/L Chloride (98-107) mmol/L Carbon Dioxide (21-32) mmol/L Anion Gap (3-11) BUN (6-23) mg/dl Creatinine (0.6-1.2) mg/dl Est Cr Clr Drug Dosing ml/min Est GFR ( Amer) ml/min Est GFR (Non-Af Amer) ml/min BUN/Creatinine Ratio (10-20) Glucose (70-99(Fasting)) mg/dl Lactate (0.4-2.0) mmol/L Calcium (8.6-10.3) mg/dl Total Bilirubin (0.2-1.0) mg/dl AST (13-39) U/L ALT (7-52) U/L Alkaline Phosphatase (34-104) U/L Total Protein (6.0-8.3) gm/dl Albumin (3.4-5.0) gm/dl Globulin (2.5-4.0) gm/dl Albumin/Globulin Ratio (0.9-2) Lipase (11-82) U/L Urine Color Yellow Urine Appearance Cloudy A (Clear) Urine pH 5.5 (4.5-7.5) Ur Specific [place] 1.022 (1.000-1.030) Urine Protein Negative (Negative) Urine Glucose (UA) Negative (Negative) Urine Ketones 1+ H (Negative) Urine Blood Trace H (Negative) Urine Nitrite Positive A (Negative) Urine Bilirubin Negative (Negative) Urine Urobilinogen Negative (Negative) Ur Leukocyte Esterase 2+ H (Negative) Urine WBC (Auto) >30 H (0-5) /hpf Urine RBC (Auto) 0-4 (0-4) /hpf U Hyaline Cast (Auto) 1-5 (0-5) /lpf U Epithel Cells (Auto) 5-10 H (0-5) /lpf Urine Bacteria (Auto) 1+ H (Negative) Urine Crystals Not Reportable Calcium Oxalate Crystal Present A (None Prsent) Adenovirus (PCR) (NotDetected) B. pertussis DNA (PCR) (NotDetected) B.parapertussis DNA PCR (NotDetected) C. pneumoniae DNA (PCR) (NotDetected) Coronavirus OC43 (PCR) (NotDetected) Coronavirus HKU1 (PCR) (NotDetected) Coronavirus 229E (PCR) (NotDetected) SARS-CoV-2 (PCR) (NotDetected) Coronavirus NL63 (PCR) (NotDetected) Human Metapneumovir PCR (NotDetected) Influenza Type A (PCR) (NotDetected) Influenza Type B (PCR) (NotDetected) M. pneumoniae (PCR) (NotDetected) Parainfluenza 1 (PCR) (NotDetected) Parainfluenza 2 (PCR) (NotDetected) Parainfluenza 3 (PCR) (NotDetected) Parainfluenza 4 (PCR) (NotDetected) RSV (PCR) (NotDetected) Entero/Rhino (PCR) (NotDetected) Administered Medications Sodium Chloride (Nss) 1,000 mls @ 125 mls/hr IV .Q8H [facility] Stop: 08/30/23 14:14 Last Admin: 07/31/23 15:42 Dose: 125 mls/hr Documented By: PRUDENCE Vancomycin HCl 1,500 mg/ (Sodium Chloride) 530 mls @ 200 mls/hr IV ONE ONE Stop: 07/31/23 17:38 Last Admin: 07/31/23 16:24 Dose: 200 mls/hr Documented By: PRUDENCE Insulin Aspart (Insulin Aspart Per Unit Charge) 0 units SC ACHS [facility] Stop: 08/30/23 16:29 Last Admin: 07/31/23 16:29 Dose: Not Given Documented By: PRUDENCE Co-signed By: RITU Discontinued Medications Sodium Chloride (Nss) 1,000 mls @ 999 mls/hr IV .Q1H1M ONE Stop: 07/31/23 11:35 Last Infusion: 07/31/23 11:38 Dose: Infused Documented By: Admin: 07/31/23 10:37 Dose: 999 mls/hr Documented By: ROMI Ceftriaxone Sodium (Rocephin) 2,000 mg in 50 mls @ 100 mls/hr IV NOW STA Stop: 07/31/23 12:59 Last Infusion: 07/31/23 13:27 Dose: Infused Documented By: Admin: 07/31/23 12:57 Dose: 100 mls/hr Documented By: PRUDENCE Sodium Chloride (Nss) 1,000 mls @ 999 mls/hr IV .Q1H1M ONE Stop: 07/31/23 13:37 Last Infusion: 07/31/23 13:50 Dose: Infused Documented By: Admin: 07/31/23 12:54 Dose: 999 mls/hr Documented By: OYMIK Piperacillin Sod/Tazobactam Sod (Zosyn) 4.5 gm in 100 mls @ 200 mls/hr IV ONE ONE Stop: 07/31/23 15:29 Last Infusion: 07/31/23 16:23 Dose: Infused Documented By: Admin: 07/31/23 15:43 Dose: 200 mls/hr Documented By: PRUDENCE Imaging Data Radiologist's Impression: Chest X-Ray 07/31/23 10:02 XR chest 1V portable HISTORY: Weakness COMPARISON: Chest 05/23/2019. FINDINGS: The lungs are clear. Cardiac silhouette is normal in size. No pleural effusions. No pneumothorax. Cervical spinal fusion hardware is again noted. IMPRESSION: No acute process. ACT 112: Negative or not required by law. Electronically signed by: Israel Mccracken M.D. 07/31/2023 10:42 AM Discharge Plan Visit Data Chief Complaint: Illness ED Provider: Rhonda Mata Discharge Problem: Sepsis associated hypotension, Acute UTI Discharge Instructions Interventions: ED Discharge Assessment Last Done: 07/31/23 16:05
--- NOTE | 2023-07-31 10:43 | XRay Report ---
XR chest 1V portable HISTORY: Weakness COMPARISON: Chest 05/23/2019. FINDINGS: The lungs are clear. Cardiac silhouette is normal in size. No pleural effusions. No pneumot horax. Cervical spinal fusion hardware is again noted. IMPRESSION: No acute process. ACT 112: Negative or not required by law. Electronically signed by: Israel Mccracken M.D. 07/31/2023 10:42 AM
[2023-07-31 10:46] LABS: Anisocytosis Present; Hypochromasia Present; Polychromasia 2+
[2023-07-31 11:08] LABS: Adenovirus PCR Not Detected (NotDetected); Bordetella parapertussis PCR Not Detected (NotDetected); Bordetella pertussis PCR Not Detected (NotDetected); Chlamydia pneumoniae PCR Not Detected (NotDetected); Coronavirus 229E PCR Not Detected (NotDetected); Coronavirus CoV-2 (COVID19)PCR Not Detected (NotDetected); Coronavirus HKU1 PCR Not Detected (NotDetected); Coronavirus NL63 PCR Not Detected (NotDetected); Coronavirus OC43PCR Not Detected (NotDetected); Human Metapneumovirus PCR Not Detected (NotDetected); Influenza A PCR Not Detected (NotDetected); Influenza B PCR Not Detected (NotDetected); Mycoplasma pneumoniae PCR Not Detected (NotDetected); Parainfluenza Virus 1 PCR Not Detected (NotDetected); Parainfluenza Virus 2 PCR Not Detected (NotDetected); Parainfluenza Virus 3 PCR Not Detected (NotDetected); Parainfluenza Virus 4 PCR Not Detected (NotDetected); Respiratory Syncytial VirusPCR Not Detected (NotDetected); Rhinovirus/Enterovirus PCR Not Detected (NotDetected)
--- OUTSIDE RECORDS SUMMARY | 2023-07-31 11:41 | External Medical Summary | Summary of Care ---
Author Name Unknown Organization [facility] Address [address] [place] [address] Phone [phone] Care Team Providers Care Health Aid Name Role Phone Renae MEDINA MD, Rashaad Singh Primary Care Provider [phone] Reason for Visit * Reason Comments eRx-Medication Refill Encounter Details Date Type Department Care Team (Late st Contact Info) Description 07/29/2023 Refill Family Practice [facility] [address] [place] [address] Rashaad Tran III, MD [address] [place] [address] Allergies Active Allergy Reactions Criticality Noted Date Comments Clarithromycin 05/09/2010 Confusion, "buzzing sound in head" documented as of this encounter (statuses as of 07/30/2023) Medications Medication Sig Dispensed Refills Start Date End Date Status aspirin 81 MG chewable tablet Take 1 Tablet by mouth in the morning. With food.. 100 Tab 5 6 Active Cholecalciferol (VITAMIN D3) 1000 units CAPS Take 1 Capsule by mouth in the morning. Not sure of strenght . 0 Active acetaminophen (TYLENOL) 500 MG Tablet Take 1 Tablet by mouth every 4 hours as needed for Pain, Mild. 0 Active Albuterol Sulfate 108 (90 Base) MCG/ACT Inhalation Aerosol Powder Breath Activated Inhale by mouth. NEEDED 0 Active Docusate Calcium 240 MG CAPS Take 1 Cap by mouth daily as needed. 100 Cap 3 8 Active MEDICAL INSTRUCTIONS Custodial-for monitoring of med. compliance, filling of med. dispenser, and vital signs. 2 hrs for week one, 1 hr weekly on going. 1 Each 1 9 Active Lancet Devices (ACCU-CHEK SOFTCLIX LANCET DEV) MISCIndications: DM type 2, not at goal (HCC) Twice daily DX: E11.9 1 Each 11 9 Active Blood Glucose Monitoring Suppl (ACCU-CHEK KATLYN PLUS) w/Device KIT Test blood sugar 3 times daily as directed. E11.9 1 Kit 0 9 Active Blood Glucose Monitoring Suppl (ACCU-CHEK KATLYN) JORGE Use up to 4 times daily 1 Device 0 9 Active Bisacodyl 5 MG Oral Tablet Delayed Release (DULCOLAX) Take 1 Tablet by mouth as needed. 0 Active Accu-Chek Softclix Lancets TEST BLOOD SUGAR 3 TIMES DAILY. DX:E11.9 300 Each 3 1 Active Accu-Chek Katlyn Plus In Vitro Strip (Glucose Blood)Indication s:Diabetes mellitus with peripheral angiopathy (HCC) USE DIRECTED 3 TIMES A DAY. DX E11.9 300 Strip 3 3 Active OneTouch Verio w/Device Kit Use up to 4 times a day E11.9 1 Kit 0 3 Active OneTouch Verio In Vitro Strip (Glucose Blood) Use as directed 3 times a day E11.9 100 Strip 11 3 Active Atorvastatin Calcium 80 MG Oral Tablet (Lipitor) TAKE 1 TABLET BY MOUTH EVERY DAY 90 Tablet 3 3 Active Insulin Glargine Solostar 100 UNIT/ML Subcutaneous Solution Pen-injector (Basaglar KwikPen) INJECT 24 UNITS SUBCUTANEOUSLY DAILY 45 mL 3 3 Active BD Pen Needle Mini U/F 31G X 5 MM (Insulin Pen Needle) USE ONCE DAILY WITH LANTUS SOLOSTAR DIRECTED. DX E11.9 100 Each 3 3 Active Ezetimibe 10 MG Oral Tablet (Zetia)Indicatio ns:Type 2 diabetes mellitus with hemoglobin A1c goal of less than 8.0% (HCC) TAKE 1 TABLET BY MOUTH EVERY DAY 90 Tablet 3 3 Active metFORMIN HCl ER 500 MG Oral Tablet Extended Release 24 Hour (Glucophage XR) TAKE 2 TABLETS BY MOUTH TWICE A DAY WITH MORNING AND EVENING MEALS 360 Tablet 3 3 Active Donepezil HCl 10 MG Oral Tablet (Aricept) TAKE 1 TABLET BY MOUTH IN THE EVENING WITH THE LARGEST MEAL. 90 Tablet 11 3 Active rOPINIRole HCl 0.5 MG Oral Tablet (Requip)Indicati ons:Restless legs syndrome TAKE 1 TABLET BY MOUTH EVERY DAY FOR RESTLESS LEGS 90 Tablet 11 3 Active Losartan Potassium 25 MG Oral Tablet (Cozaar)Indicati ons:Systemic sclerosis (HCC) TAKE 1/2 TABLET BY MOUTH EVERY DAY 45 Tablet 1 3 Active traZODone HCl 50 MG Oral Tablet (Desyrel) TAKE 1 TABLET BY MOUTH EVERY DAY AT BEDTIME NEEDED 90 Tablet 1 3 Active Mirtazapine 30 MG Oral Tablet (Remeron) TAKE 1 TABLET BY MOUTH EVERYDAY AT BEDTIME 90 Tablet 1 3 Active Ferrous Sulfate 325 (65 Fe) MG Oral Tablet (Feosol) TAKE 2 TABLETS BY MOUTH EVERY DAY WITH BREAKFAST 180 Tablet 1 3 Active Venlafaxine HCl ER 75 MG Oral Capsule Extended Release 24 Hour (Effexor XR) TAKE 1 CAPSULE BY MOUTH EVERY DAY DO NOT CUT, CRUSH, OR CHEW 90 Capsule 2 3 Active Pantoprazole Sodium 40 MG Oral Tablet Delayed Release (Protonix) TAKE 1 TABLET BY MOUTH EVERY DAY 30 MINUTES BEFORE 1ST MEAL 90 Tablet 3 3 Active Gabapentin 300 MG Oral Capsule (Neurontin) Take 1 Capsule by mouth in the morning and 1 Capsule at noon and 1 Capsule before bedtime. 90 Capsule 5 3 Active Levothyroxine Sodium 50 MCG Oral Tablet (Synthroid) Take 1 Tablet by mouth daily first thing in the morning. (at least 30 min prior to breakfast or other meds) 90 Tablet 0 3 Active Fluticasone Propionate 50 MCG/ACT Nasal Suspension (Flonase) ADMINISTER 2 SPRAYS INTO EACH NOSTRIL EVERY DAY 48 mL 3 3 Active Trulicity 0.75 MG/0.5ML Subcutaneous Solution Pen-injector (Dulaglutide) INJECT 0.75 MG SUBCUTANEOUSLY ONE TIME PER WEEK 6 mL 2 3 Active Clopidogrel Bisulfate 75 MG Oral Tablet (pLAVix) TAKE 1 TABLET BY MOUTH EVERY DAY 90 Tablet 1 3 Active OneTouch Delica Plus [id number] USE DIRECTED THREE TIMES A DAY BEFORE MEALS 300 Each 3 4 Active OneTouch UltraSoft Lancets Use as directed three times a day before meals. Use as directed 3 times a day. 100 Each 3 3 07/30/19 24 Discontinued documented as of this encounter (statuses as of 07/30/2023) Active Problems Problem Noted Date Diagnosed Date Subclavian arterial stenosis 07/26/2020 Undifferentiated connective tissue disease 10/20 Dementia without behavioral disturbance 04/03/20 Overview: ICD-10 update of inactive term Type 2 diabetes mellitus wit h hemoglobin A1c goal of less than 8.0% 04/03/2019 Carotid stenosis, non-symptomatic, bilateral Left subclavian artery occlusion 03/12/2019 Obstructive lung disease 12/19/2018 Unspecified mood (affective) disorder 12/19/2018 Other emphysema 09/17/2018 Diabetes mellitus with peripheral angiopathy 10/2016 Family history of breast cancer in mother 2015 Pure hypercholesterolemia 04/20/2014 Scleroderma, 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 Lumbar spinal stenosis 10/23/2013 Lumbar degenerative disc disease 10/23/2013 Degenerative disc disease, cervical 10/23/2013 Vitamin D deficiency 02/20/2013 CREST syndrome 08/14/2011 Encounter for long-term (current) use of medicat ions 12/01/2010 Overview: ICD-10 update of inactive term ADVANCE DIRECTIVE INFORMATION 02/09/2005 Overview: No, Advance Directive brochure given to patient. anxiety 04/07/2004 Hypothyroidism 02/02/2003 Depression 02/02/2003 Systemic sclerosis 12/29/2002 Myalgia and myositis 12/29/2002 Esophagitis 12/29/2002 Overview: ICD-10 update of inactive term documented as of this encounter (statuses as of 07/30/2023) Resolved Problems Problem Noted Date Diagnosed Date Resolved Date Controlled substance agreement signed 12/22/2015 07/04/2018 Undifferentiated connective tissue disease 03/23/2015 12/25/2016 Carotid artery stenosis with cerebral infarction over 8 weeks ago 03/23/2015 07/04/2018 DM type 2, goal: symptom mgmt 06/08/2014 06/18/2017 Peripheral vascular disease 10/23/2013 03/12/2019 Encounter for long-term (cur rent) use of medications 11/25/2010 12/01/2010 Overview: ICD-10 update of inactive term Elevated liver enzymes 08/16/201005/20 Tobacco use disorder 11/16/2006 018 Menopausal and postmenopausal disorder 04/07/2004 05/20/2018 documented as of this encounter (statuses as of 07/30/2023) Immunizations Name Administration Dates Next Due COVID-19 mRNA, LNP-s, No Pre serve, 2-Dose Series (DynaPump) 07/30/2021,11/11/2020,10/21/2020 DT - Diptheria/Tetanus (PEDS) 06/04/2015 Pneumococcal Conjugate Vacc, 13 Valent (Prevnar) 04/26/2020 Pneumococcal Polysaccharide PPV23 (Pneumovax) 10/19/2021,11/08/2010 Season Influenza, Quad, PF, Adjuvanted, 65+ Yrs, IM (FLUAD) 04/26/2020 Seasonal Influenza Virus Vac cine, Unspecified Formulation 04/03/2019,04/04/2018,03/29/2017,03/22,05/17/2015,04/08/2014,05/09/2011 ,06/06/2010,06/12/2006 Seasonal Influenza, PF, 6 M & above, IM , (FluLaval or Fluzone) 04/03/2019,04/04/2018 Seasonal Influenza, Quadriva lent Hd (Fluzone Hd) 06/01/2023,07/04/2022,04/20/2021 Seasonal Influenza, Quadriva lent, No Preserve, IM 03/29/2017,03/22/2016,05/17/2015 Seasonal Influenza, Split, I IV3, With Preserve, Inj 04/08/2014,05/09/2011,06/06/2010,06/12 TDAP (age 10 and older)(Boostrix) 06/04/2015 Zoster Vaccine Recombinant (Shingrix) 07/25/2018 ,05/10/2018 documented as of this encounter Social History Tobacco Use Types Packs/Day Years Used Date Smoking Tobacco: Former Cigarettes 1 32 Q uit: 06/10/2011 Smokeless Tobacco: Never Alcohol Use Standard Drinks/Week Comments Yes 3.3 (1 standard drink = 0.6 oz p ure alcohol) 1 drink every 2 weeks AUDIT-C Answer Date Recorded Frequency of Alcohol Consumption 2-3 times a wee k 07/03/2019 Average Number of Drinks Not on file 019 Frequency of Binge Drinking Not on file 06/15 PHQ-2 Answer Date Recorded PHQ Adult Total Score 0 07/04/2022 Sex and Gender Information Value Date Recorded Sex Assigned at Not on file Gender Identity Not on file Sexual Orientation Not on file Job Start Date Occupation Industry Not on file Not on file Not on file documented as of this encounter Functional Status Functional Status Response Date of Assess ment Are you deaf or do you have serious difficulty h earing? No 07/23/2018 Are you blind or do you have serious difficulty seeing, even when wearing glasses? No 07/23/2018 Do you have serious difficul ty walking or climbing stairs? (5 years old or older) No 07/23/2018 Do you have difficulty dress ing or bathing? (5 years old or older) No 07/23/2018 Because of a physical, menta l, or emotional condition, do you have difficulty doing errands alone such as visiting a doctor s office or shopping? (15 years old or older) No 07/23/19 19 Cognitive Status Response Date of Assessm ent Because of a physical, menta l, or emotional condition, do you have serious difficulty concentrating, remembering, or making decisions? (5 years old or older) No 07/23/2018 documented as of this encounter Miscellaneous Notes * Telephone Encounter - [facility] [place] - 07/30/2023 5:46 PM ESTSigned Prescriptions: Disp Refills OneTouch Delica Plus [id number] 300 Ea*3 Sig: USE DIRECTED THREE TIMES A DAY BEFORE MEALSAuthorizing Provider: RASHAAD TRAN III User: PAUL SIMS-- documented in this encounter Plan of Treatment Upcoming Encounters Date Type Department Care Team (Late st Contact Info) Description 08/29/2023 10:00 AM EST Laboratory Laboratory [facility] [address] [facility] [place], [place] [id number] [place], [place] [address] 09/03/2023 10:40 AM EST Office Visit Family Practice [facility] [address] [facility] [place] [address] Jo Flores PA-C [address] [facility] [place], [place] [address] 10/29/2023 11:40 AM EDT Office Visit Rheumatology [facility] [address] [place], [place] [address] Bert Osborne MD [address] [place], [place] [address] Scheduled Procedures Name Priority Associated Diagnoses Date/Ti me COLONOSCOPY FLEXIBLE PROXIMAL DIAGNOSTIC Recall Screen for colon cancer Health Maintenance Due Date Last Done Comments Cologuard 2000 Sigmoidoscopy 2000 Hepatitis B (1 of 3 - Risk 3-dose series) 2015 Fecal Occult Blood Test 05/19/2020 05/19/20, 09/11/2016, 09/17/2008, Additional history exists COVID-19 Vaccine ( season) 2023 07/30/2021, 11/11/2020, 10/21/2020 Depression Screening 07/04/2023 07/04/2022 HbA1c 08/23/2023 02/20/2023, 09/15, 07/05/2022, Additional history exists Albumin/Creatinine Ratio 10/14/2023 023, 10/11/2021, 04/25/2016, Additional history exists Diabetic Eye Exam 12/21/2023 12/20/2022, , 09/01/2020, Additional history exists Diabetic Foot Exam 02/13/2024 02/12/2023, 0 01/27/2022, 07/26/2020, Additional history exists GFR 02/21/2024 02/20/2023, 09/15, 10/10/2021, Additional history exists TSH 06/01/2024 06/01/2023, 02/2023, 12/14/2022, Additional history exists O2 ASSESSMENT COMPLETED IN PAST YEAR FOR COPD 06/20/2024 06/20/2023 Mammogram 07/10/2024 07/10/2023, 06/16, 07/04/2021, Additional history exists DTaP,Tdap,and Td Vaccines (3 - Td or Tdap) 06/04/2025 06/04/2015, 06/04/2015 DXA Scan 11/10/2027 11/09/2020, 04/0 03/2010, 03/28/2007, Additional history exists Colonoscopy 10/05/2030 10/05/2020, 09/14, 05/26/2019, Additional history exists Colorectal Cancer Screening 10/05/2030 Zoster Vaccines Completed 07/25/2018, 05/10/2018 Pap Smear Discontinued 07/03/2019, 05/0 10/2015, 05/29/2012, Additional history exists COLONOSCOPY-ANNUAL AGES 18-100 Discontinued 10/05/2020, 10/05/2020, 05/26/2019, Additional history exists Pneumococcal Vaccine: 65+ Years Completed 10/19/2021, 04/26/2020, 11/08/2010 LUNG CANCER SCREENING - USE SMARTSET 50133 Completed 11/16/2022, 11/10/2021, 10/20/2020, Additional history exists Alpha-1 Antitrypsin Completed 06/01/2023 Influenza Vaccine (FLU shot) Completed 06/01/2023, 07/04/2022, 04/20/2021, Additional history exists GARDASIL-HPV IMMUNIZATION SERIES Aged Out No longer eligible based on patient's age to complete this topic MENINGOCOCCAL (MENACTRA/MENVEO) Aged Out No longer eligible based on patient's age to complete this topic documented as of this encounter Medical Devices Not on filedocumented as of this encounter Advance Directives Latest Code Status on File Code Status Date Activated Date Inactivated Comments Full Code 07/23/2018 11:45 AM 07/24/2018 4:27 PM This o rder reflects the patients wishes and were consensually agreed upon. Care Teams Health Aid Relationship Specialty Start Date End Date Rashaad Tran III, MD [address] [place] [address] PCP - General Family Medicine 06/04/15 documented as of this encounter
--- OUTSIDE RECORDS SUMMARY | 2023-07-31 11:41 | External Medical Summary | Summary of Care ---
Author Name Unknown Organization [facility] Address [address] [place] [address] Phone [phone] Care Team Providers Care Procedure Writer Name Role Phone Renae MEDINA MD, Oseas Singh Primary Care Provider [phone] Reason for Visit * Reason Onset Date Comments Health Maintenance 07/26/2023 Encounter Details Date Type Department Care Team (Late st Contact Info) Description 07/26/2023 Telephone Family Practice [facility] [place] [address] [facility] [place] [address] Oseas Macdonald III, MD [address] [facility] [place] [address] Health Maintenance Allergies Active Allergy Reactions Criticality Noted Date Comments Clarithromycin 05/09/2010 Confusion, "buzzing sound in head" documented as of this encounter (statuses as of 07/26/2023) Medications Medication Sig Dispensed Refills Start Date End Date Status aspirin 81 MG chewable tablet Take 1 Tablet by mouth in the morning. With food.. 100 Tab 5 07/19/2015 Active Cholecalciferol (VITAMIN D3) 1000 units CAPS [...] mouth daily as needed. 100 Cap 3 01/25/2018 Active MEDICAL INSTRUCTIONS Senior Living-for monitoring of med. compliance, filling of med. dispenser, and vital signs. 2 hrs for week one, 1 hr weekly on going. 1 Each 1 08/15/2018 Active Lancet Devices (ACCU-CHEK SOFTCLIX LANCET DEV) MISCIndications:DM type 2, not at goal (HCC) Twice daily DX: E11.9 1 Each 11 02/11/2019 Active Blood Glucose Monitoring Suppl (ACCU-CHEK KATLYN PLUS) w/Device KIT Test blood sugar 3 times daily as directed. E11.9 1 Kit 0 06/24/2019 Active Blood Glucose Monitoring Suppl (ACCU-CHEK KATLYN) JORGE Use up to 4 times daily 1 Device 0 07/03/2019 Active Bisacodyl 5 MG Oral Tablet Delayed Release (DULCOLAX) Take 1 Tablet by mouth as needed. 0 Active Accu-Chek Softclix Lancets TEST BLOOD SUGAR 3 TIMES DAILY. DX:E11.9 300 Each 3 12/25/2020 Active Accu-Chek Katlyn Plus In Vitro Strip (Glucose Blood)Indications: Diabetes mellitus with peripheral angiopathy (HCC) USE DIRECTED 3 TIMES A DAY. DX E11.9 300 Strip 3 08/04/2022 Active OneTouch Verio w/Device Kit Use up to 4 times a day E11.9 1 Kit 0 08/15/2022 Active OneTouch Verio In Vitro Strip (Glucose Blood) Use as directed 3 times a day E11.9 100 Strip 11 08/15/2022 Active OneTouch UltraSoft Lancets Use as directed three times a day before meals. Use as directed 3 times a day. 100 Each 3 08/15/2022 Active Atorvastatin Calcium 80 MG Oral Tablet (Lipitor) TAKE 1 TABLET BY MOUTH EVERY DAY 90 Tablet 3 10/31/2022 Active Insulin Glargine Solostar 100 UNIT/ML Subcutaneous Solution Pen-injector (Basaglar AlbertPen) INJECT 24 UNITS SUBCUTANEOUSLY DAILY 45 mL 3 12/22/2022 Active BD Pen Needle Mini U/F 31G X 5 MM (Insulin Pen Needle) USE ONCE DAILY WITH LANTUS SOLOSTAR DIRECTED. DX E11.9 100 Each 3 01/04/2023 Active Ezetimibe 10 MG Oral Tablet (Zetia)Indications :Type 2 diabetes mellitus with hemoglobin A1c goal of less than 8.0% (HCC) TAKE 1 TABLET BY MOUTH EVERY DAY 90 Tablet 3 02/15/2023 Active metFORMIN HCl ER 500 MG Oral Tablet Extended Release 24 Hour (Glucophage XR) TAKE 2 TABLETS BY MOUTH TWICE A DAY WITH MORNING AND EVENING MEALS 360 Tablet 3 02/25/2023 Active Donepezil HCl 10 MG Oral Tablet (Aricept) TAKE 1 TABLET BY MOUTH IN THE EVENING WITH THE LARGEST MEAL. 90 Tablet 11 03/11/2023 Active rOPINIRole HCl 0.5 MG Oral Tablet (Requip)Indication s:Restless legs syndrome TAKE 1 TABLET BY MOUTH EVERY DAY FOR RESTLESS LEGS 90 Tablet 11 03/11/2023 Active Losartan Potassium 25 MG Oral Tablet (Cozaar)Indication s:Systemic sclerosis (HCC) TAKE 1/2 TABLET BY MOUTH EVERY DAY 45 Tablet 1 04/13/2023 Active traZODone HCl 50 MG Oral Tablet (Desyrel) TAKE 1 TABLET BY MOUTH EVERY DAY AT BEDTIME NEEDED 90 Tablet 1 04/23/2023 Active Mirtazapine 30 MG Oral Tablet (Remeron) TAKE 1 TABLET BY MOUTH EVERYDAY AT BEDTIME 90 Tablet 1 04/23/2023 Active Ferrous Sulfate 325 (65 Fe) MG Oral Tablet (Feosol) TAKE 2 TABLETS BY MOUTH EVERY DAY WITH BREAKFAST 180 Tablet 1 04/25/2023 Active Venlafaxine HCl ER 75 MG Oral Capsule Extended Release 24 Hour (Effexor XR) TAKE 1 CAPSULE BY MOUTH EVERY DAY DO NOT CUT, CRUSH, OR CHEW 90 Capsule 2 05/17/2023 Active Pantoprazole Sodium 40 MG Oral Tablet Delayed Release (Protonix) TAKE 1 TABLET BY MOUTH EVERY DAY 30 MINUTES BEFORE 1ST MEAL 90 Tablet 3 05/23/2023 Active Gabapentin 300 MG Oral Capsule (Neurontin) Take 1 Capsule by mouth in the morning and 1 Capsule at noon and 1 Capsule before bedtime. 90 Capsule 5 06/01/2023 Active Levothyroxine Sodium 50 MCG Oral Tablet (Synthroid) Take 1 Tablet by mouth daily first thing in the morning. (at least 30 min prior to breakfast or other meds) 90 Tablet 0 06/04/2023 Active Fluticasone Propionate 50 MCG/ACT Nasal Suspension (Flonase) ADMINISTER 2 SPRAYS INTO EACH NOSTRIL EVERY DAY 48 mL 3 06/06/2023 Active Trulicity 0.75 MG/0.5ML Subcutaneous Solution Pen-injector (Dulaglutide) INJECT 0.75 MG SUBCUTANEOUSLY ONE TIME PER WEEK 6 mL 2 06/06/2023 Active Clopidogrel Bisulfate 75 MG Oral Tablet (pLAVix) TAKE 1 TABLET BY MOUTH EVERY DAY 90 Tablet 1 06/06/2023 Active documented as of this encounter (statuses as of 07/26/2023) Active Problems Problem Noted Date Diagnosed Date Subclavian arterial stenosis 07/26/2020 Undifferentiated connective tissue disease 10/20 Dementia without behavioral disturbance 04/03/20 19 Overview: ICD-10 update of inactive term Type [...] as of this encounter (statuses as of 07/26/2023) Resolved Problems Problem Noted Date Diagnosed Date [...] as of this encounter (statuses as of 07/26/2023) Immunizations Name Administration Dates Next Due COVID-19 mRNA, LNP-s, No Pre serve, 2-Dose Series (Numerate) 07/30/2021,11/11/2020,10/21/2020 DT - Diptheria/Tetanus (PEDS) 06/04/2015 Pneumococcal [...] (15 years old or older) No 07/23/19 Cognitive Status Response Date of Assessm ent Because of a physical, menta l, or emotional condition, do you have serious difficulty concentrating, remembering, or making decisions? (5 years old or older) No 07/23/2018 documented as of this encounter Miscellaneous Notes * Telephone Encounter - Rachel StephensonYUNG - 07/26/2023 8:39 AM EST Care Gaps Comprehensive Care Outreach Last Office/Telemedicine Visit: 06/01/2023 (in office), Visit date not found (telemedicine) Next Office Visit: 09/03/2023 Hemoglobin AIC Results: Lab Results Component Value Date/Time HEMOGLOBIN A1C - [facility] 5.3 02/20/2023 11:18 AM HEMOGLOBIN A1C - [facility] 6.4 (H) 10/13/2022 10:43 AM HEMOGLOBIN A1C - [facility] 6.1 (H) 07/05/2022 11:04 AM HEMOGLOBIN A1C - [facility] 6.5 (H) 04/20/2020 12:41 PM HEMOGLOBIN A1C - [facility] 5.3 10/21/2019 12:22 PM HEMOGLOBIN A1C - [facility] 5.4 03/31/2019 02:55 PM Reviewed Health Maintenance below: Health Maintenance Topic Date Due Hepatitis B (1 of 3 - Risk 3-dose series) Never done COVID-19 Vaccine () 03/16/2023 Depression Screening 07/04/2023 HbA1c 08/23/2023 Lab ordered and scheduled Care Gap Outreach Action Taken: Spoke to patient documented in this encounter Plan of Treatment Upcoming Encounters Date Type Department Care Team (Late st Contact Info) Description 08/29/2023 10:00 AM EST Laboratory Laboratory [facility] [place] [address] [facility] [place] [id number] [facility] [address] [facility] [place] [address] 09/03/2023 10:40 AM EST Office Visit Family Practice [facility] [place] [address] [facility] [place] [address] Jo Flores PA-C [address] [facility] [place] [address] 10/29/2023 11:40 AM EDT Office Visit Rheumatology [place] [id number] [place] [address] Bert Osborne MD [address] [place] [address] Scheduled Orders Name Type Priority Associated Diagnoses Orde r Schedule HEMOGLOBIN A1C Lab Routine Diabetes mellitus with peripheral angiopathy (HCC) Expected: 07/26/2023, Expires: 07/26/2024 Scheduled Procedures Name Priority Associated Diagnoses Date/Ti [...] 06/04/2025 06/04/2015, 06/04/2015 DXA Scan 11/10/2027 11/09/2020, 040 03/2010, 03/28/2007, Additional history exists Colonoscopy 10/05/2030 10/05/2020, 09/14, 05/26/2019, Additional history exists Colorectal Cancer Screening 10/05/2030 Zoster Vaccines Completed 07/25/2018, 05/10/2018 Pap Smear Discontinued 07/03/2019, 05/0 10/2015, 05/29/2012, Additional history exists COLONOSCOPY-ANNUAL AGES 18-100 Discontinued 10/05/2020, 10/05/2020, 05/26/2019, Additional history exists Pneumococcal Vaccine: 65+ Years Completed 10/19/2021, 04/26/2020, 11/08/2010 LUNG CANCER SCREENING - USE SMARTSET [id number] Completed 11/16/2022, 11/10/2021, 10/20/2020, Additional history exists [...] Not on filedocumented as of this encounter Visit Diagnoses Diagnosis Diabetes mellitus screening- Primary Screening for diabetes mellitus Diabetes mellitus with peripheral angiopathy (HCC) Type II or unspecified type diabetes mellitus with peripheral circulatory disorders, not stated as uncontrolled documented in this encounter Advance Directives Latest Code Status on File Code Status Date Activated Date Inactivated Comments Full Code 07/23/2018 11:45 AM 07/24/2018 4:27 PM This o rder reflects the patients wishes and were consensually agreed upon. Care Teams Procedure Writer Relationship Specialty Start Date End Date Oseas Macdonald III, MD [address] [place] [address] PCP - General Family Medicine 06/04/15 documented as of this encounter
--- OUTSIDE RECORDS SUMMARY | 2023-07-31 11:42 | External Medical Summary | Summary of Care ---
Author Name Unknown Organization [facility] Address [address] [place] [address] Phone [phone] Care Team Providers Care Mobile Lab Technician Name Role Phone Renae MEDINA MD, Oseas Singh Primary Care Provider [phone] Reason for Referral * Precert (Within 24 hrs (call dept; emergent)) - Pending Review Specialty Diagnoses / Procedures Referred By Jayesh apodaca Referred To Contact Radiology Diagnoses Fall, initial encounter Procedures CT ABD/PELVIS WO IV/ORAL CONTRAST Rosa Elena Sharma CRNP [address] [place] [address] Referral ID Status Reason Start Date Expiration Date Visits Requested Visits Authorized [id number] Pending Review Precert 06/20/2023 999 999 Reason for Visit * Reason Comments Fall Patient accompanied by son Franklin - he reports patient fell 2 days ago; patient denies hitting head or losing consciousness; patient having pain to left chest/rib area Encounter Details Date Type Department Care Team (Latest Contact Info) Description 06/20/2023 8:20 AM EST Office Visit Family [facility] [address] [place] [address] Rosa Elena Sharma CRNP [address] [place] [phone] Fall, initial encounter*; 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 compliance, filling of med. dispenser, and vital signs. 2 hrs for week one, 1 hr weekly on going. 1 Each 1 08/15/2018 Active Lancet Devices (ACCU-CHEK SOFTCLIX LANCET DEV) MISCIndications:DM type 2, not at goal (HCC) Twice daily DX: E11.9 1 Each 11 02/11/2019 Active Blood Glucose Monitoring Suppl (ACCU-CHEK BRIANNA PLUS) w/Device KIT Test blood sugar 3 times daily as directed. E11.9 1 Kit 0 06/24/2019 Active Blood Glucose Monitoring Suppl (ACCU-CHEK BRIANNA) JORGE Use up to 4 times daily 1 Device 0 07/03/2019 Active Bisacodyl 5 MG Oral Tablet Delayed Release (DULCOLAX) Take 1 Tablet by mouth as needed. 0 Active Accu-Chek Softclix Lancets TEST BLOOD SUGAR 3 TIMES DAILY. DX:E11.9 300 Each 3 12/25/2020 Active Accu-Chek Brianna Plus In Vitro Strip (Glucose Blood)Indications: Diabetes [...] directed 3 times a day. 100 Each 08/15/2022 Active Atorvastatin Calcium 80 MG Oral Tablet (Lipitor) TAKE 1 TABLET BY MOUTH EVERY DAY 90 Tablet 3 10/31/2022 Active Insulin Glargine Solostar 100 UNIT/ML Subcutaneous Solution Pen-injector (Fiksuaglar KwikPen) INJECT 24 UNITS SUBCUTANEOUSLY DAILY 45 mL 12/22/2022 Active BD Pen Needle Mini U/F [...] EVENING WITH THE LARGEST MEAL. 90 Tablet 03/11/2023 Active rOPINIRole HCl 0.5 MG Oral Tablet (Requip)Indication s:Restless legs syndrome TAKE 1 TABLET BY MOUTH EVERY DAY FOR RESTLESS LEGS 90 Tablet 03/11/2023 Active Losartan Potassium 25 MG Oral [...] as of this encounter (statuses as of 06/20/2023) Active Problems Problem Noted Date Diagnosed Date [...] as of this encounter (statuses as of 06/20/2023) Resolved Problems Problem Noted Date Diagnosed Date [...] as of this encounter (statuses as of 06/20/2023) Immunizations Name Administration Dates Next Due COVID-19 mRNA, LNP-s, No Pre serve, 2-Dose Series (Plei) 07/30/2021,11/11/2020,10/21/2020 DT - Diptheria/Tetanus (PEDS) 06/04/2015 Pneumococcal Conjugate Vacc, 13 Valent (Prevnar) 04/26/2020 Pneumococcal Polysaccharide PPV23 (Pneumovax) 10/19/2021,11/08/2010 SEASONAL INFLUENZA, PF, 6 M & Above, IM , (FLULAVAL or FLUZONE) 04/03/2019,04/04/2018 Season Influenza, Quad, PF, Adjuvanted, 65+ Yrs, IM (FLUAD) 04/26/2020 Seasonal Influenza Virus Vac cine, Unspecified Formulation 04/03/2019,04/04/2018,03/29/2017,03/22,05/17/2015,04/08/2014,05/09/2011 ,06/06/2010,06/12/2006 Seasonal Influenza, Quadriva lent Hd (Fluzone Hd) 06/01/2023,07/04/2022,04/20/2021 Seasonal Influenza, Quadriva lent, No Preserve, IM 03/29/2017,03/22/2016,05/17/2015 Seasonal Influenza, Split, I IV3, With Preserve, Inj 04/08/2014,05/09/2011,06/06/2010,06/12 TDAP (age 10 and older)(Boostrix) 06/04/2015 Zoster Vaccine Recombinant (Shingrix) 07/25/2018 ,05/10/2018 documented as of this encounter Social History Tobacco Use Types Packs/Day Years Used Date Smoking Tobacco: Former Cigarettes 1 32 Q uit: 06/10/2011 Smokeless Tobacco: Never Tobacco Cessation:Counseling Given: Not Answered Alcohol Use Standard Drinks/Week Comments Yes 3.3 [...] on file documented as of this encounter Last Filed Vital Signs Vital Sign Reading Time Taken Comments Blood Pressure 96/54 06/20/2023 8:10 AM EST dyn amap Pulse 83 06/20/2023 8:10 AM EST dynam ap Temperature 36.8 C (98.2 F) 06/20/2023 8:10 AM ES T Respiratory Rate 16 06/20/2023 8:10 AM EST Oxygen Saturation 95% 06/20/2023 8:10 AM EST room air Inhaled Oxygen Concentration - - Weight 71.4 kg (157 lb 8 oz) 06/20/2023 8:10 AM EST Height - - Body Mass Index 29.76 06/01/2023 11:44 AM EST documented in this encounter Functional Status Functional Status Response [...] No 07/23/2018 documented as of this encounter Progress Notes * Rosa Elena Sharma CRNP - 06/20/2023 8:20 AM EST Images from the original note were not included. Follow up Family Medicine Visit History of Present Illness Mike Orona is a very pleasant 68 year old female with PMH listed below presenting with mechanical fall. Accompanied by her son. Tripped over in her apartment, fell into a chair 2 days ago, hitting L rib area. Denies LOC or head injury. C/o pain in L rib area and LUQ. She took ibuprofen 600mg daily past 2 days. Noted that she is taking Plavix. Denies nausea, vomiting, blood in stool. Social History Socioeconomic History Marital status: Spouse name: Not on file Number of children: 1 Years of education: Not on file Highest education level: Not on file Occupational History Occupation: unemployed Tobacco Use Smoking status: Former Packs/day: 1.00 Years: 32.00 Additional pack years: 0.00 Total pack years: 32.00 Types: Cigarettes Quit date: 06/10/2011 Years since quittin.0 Smokeless tobacco: Never Vaping Use Vaping Use: Not on file Substance and Sexual Activity Alcohol use: Yes Alcohol/week: 3.3 standard drinks of alcohol Types: 4 1.5 oz of liquor per week Comment: 1 drink every 2 weeks Drug use: No Sexual activity: Not Currently Partners: Male Other Topics Concern Service Not Asked Blood Transfusions Not Asked Caffeine Concern Not Asked Occupational Exposure Not Asked Hobby Hazards Not Asked Sleep Concern Not Asked Stress Concern Not Asked Weight Concern Not Asked Special Diet Not Asked Back Care Not Asked Exercise Not Asked Bike Helmet Not Asked Seat Belt Yes Self-Exams Not Asked Social History Narrative Live alone Has a caregiver 5 days a week 11 am to 5 pm Social Determinants of Health Financial Resource Strain: Not on file Food Insecurity: Not on file Transportation Needs: Not on file Physical Activity: Not on file Stress: Not on file Social Connections: Not on file Intimate Partner Violence: Not on file Housing Stability: Not on file PMH: Past Medical History: Diagnosis Date Benign neoplasm of colon 11/05/2009 polyps x2 normal and hyperplastic polyp repeat 3-5 yrs Diabetes mellitus (HCC) Gastroparesis 08/24/10 GERD (gastroesophageal reflux disease) Hypothyroidism Myalgia and myositis Systemic sclerosis (HCC) CREST Transaminitis Urinary urgency Past Surgical History: Procedure Laterality Date COLONOSCOPY 2004 along with EGD COLONOSCOPY W/ BIOPSY (RECTUM) 11/05/2009 polyps x2 normal and hyperplastic polyp repeat 3-5 yrs COLONOSCOPY, DIAGNOSTIC (RECTUM) 11/25/2015 normal, repeat 10 yrs/COLONOSCOPY FLEXIBLE PROXIMAL DIAGNOSTIC performed by Britta Starkey DO at [facility]COPY [facility] COLONOSCOPY, DIAGNOSTIC (RECTUM) 10/03/2016 hyperplastic polyps, repeat 3-4 mo/COLONOSCOPY FLEXIBLE PROXIMAL DIAGNOSTIC performed by Sagrario Carson DO at [facility]COPY [facility] COLONOSCOPY, DIAGNOSTIC (RECTUM) 01/05/2017 normal, repeat 10 yrs/COLONOSCOPY FLEXIBLE PROXIMAL DIAGNOSTIC performed by Britta tSarkey DO at [facility]COPY [facility] COLONOSCOPY, DIAGNOSTIC (RECTUM) 05/26/2019 normal-internal hemorrhoids/Colonoscopy/[place] COLONOSCOPY, DIAGNOSTIC (RECTUM) 10/05/2020 normal, repeat 10 yrs / COLONOSCOPY FLEXIBLE PROXIMAL DIAGNOSTIC performed by Sagrario Carson DO at [facility] DEXA SCAN/BONE MINERAL AXIAL 10/22/2009 stable, repeat 5 years EGD, FLEXIBLE, DIAGNOSTIC 10/03/2016 inflammation on bx/ESOPHAGOGASTRODUODENOSCOPY (EGD), FLEXIBLE, TRANSORAL, DIAGNOSTIC performed by Sagrario Carson DO at [facility] EGD, FLEXIBLE, DIAGNOSTIC 05/26/2019 gastritis-EGD/[place] EGD, FLEXIBLE, W/BIOPSY 08/30/[address] INFORMATION 1999 facial fracture repair INFORMATION 2005 or 6 ?? 2 sesamoid bone removals left foot IR STENT PLACEMENT, INITIAL ARTERY Left 07/23/2018 NON LOWER EXTREMITY OR CAROTID STENT REVASCULARIZATION WITH RADIOLOGIC SUPERVISION AND INTERPRETATION performed by Sudheer Prado MD at [facility] MAMMOGRAM SCREENING BILATERAL 11/03/2010 cat. 1, repeat in [address] [place] [address] GASTRIC EMPTYING STUDY SOLID 08/24/2010 [facility] T 1/2 =142 minutes OPEN BRACHIAL ARTERY EXPOSURE FOR ENDOVASCULAR PROSTHESIS, UNILAT Left 07/23/2018 OPEN BRACHIAL ARTERY EXPOSURE FOR ENDOVASCULAR AORTIC PROSTHESIS performed by Sudheer Prado MD at [facility] PARTIAL HYSTERECTOMY 1978 right ovary removed REMOVAL OF APPENDIX 01/31/[address] [facility] [address] Reyes REPAIR OF [place], ONE TOE Right 2-5 SPINAL FUSION, 4-7 VERT, ANTERIOR 12/16/2012 [facility] US ENDOSCOPIC 09/05/2019 inflammatory or reactive lymph nodes / [facility] Outpatient Medications Marked as Taking for the 06/20/23 encounter (Office Visit) with Rosa Elena Sharma CRNP Medication Sig Clopidogrel Bisulfate 75 MG Oral Tablet (pLAVix) TAKE 1 TABLET BY MOUTH EVERY DAY Fluticasone Propionate 50 MCG/ACT Nasal Suspension (Flonase) ADMINISTER 2 SPRAYS INTO EACH NOSTRIL EVERY DAY Trulicity 0.75 MG/0.5ML Subcutaneous Solution Pen-injector (Dulaglutide) INJECT 0.75 MG SUBCUTANEOUSLY ONE TIME PER WEEK Levothyroxine Sodium 50 MCG Oral Tablet (Synthroid) Take 1 Tablet by mouth daily first thing in themorning. (at least 30 min prior to breakfast or other meds) Gabapentin 300 MG Oral Capsule (Neurontin) Take 1 Capsule by mouth in the morning and 1 Capsule at noon and 1 Capsule before bedtime. Pantoprazole Sodium 40 MG Oral Tablet Delayed Release (Protonix) TAKE 1 TABLET BY MOUTH EVERY DAY 30 MINUTES BEFORE 1ST MEAL Venlafaxine HCl ER 75 MG Oral Capsule Extended Release 24 Hour (Effexor XR) TAKE 1 CAPSULE BY MOUTHEVERY DAY DO NOT CUT, CRUSH, OR CHEW Ferrous Sulfate 325 (65 Fe) MG Oral Tablet (Feosol) TAKE 2 TABLETS BY MOUTH EVERY DAY WITH BREAKFAST Mirtazapine 30 MG Oral Tablet (Remeron) TAKE 1 TABLET BY MOUTH EVERYDAY AT BEDTIME traZODone HCl 50 MG Oral Tablet (Desyrel) TAKE 1 TABLET BY MOUTH EVERY DAY AT BEDTIME NEEDED Losartan Potassium 25 MG Oral Tablet (Cozaar) TAKE 1/2 TABLET BY MOUTH EVERY DAY Donepezil HCl 10 MG Oral Tablet (Aricept) TAKE 1 TABLET BY MOUTH IN THE EVENING WITH THE LARGEST MEAL. rOPINIRole HCl 0.5 MG Oral Tablet (Requip) TAKE 1 TABLET BY MOUTH EVERY DAY FOR RESTLESS LEGS metFORMIN HCl ER 500 MG Oral Tablet Extended Release 24 Hour (Glucophage XR) TAKE 2 TABLETS BY MOUTH TWICE A DAY WITH MORNING AND EVENING MEALS Ezetimibe 10 MG Oral Tablet (Zetia) TAKE 1 TABLET BY MOUTH EVERY DAY BD Pen Needle Mini U/F 31G X 5 MM (Insulin Pen Needle) USE ONCE DAILY WITH LANTUS SOLOSTAR DIRECTED. DX E11.9 Insulin Glargine Solostar 100 UNIT/ML Subcutaneous Solution Pen-injector (Fiksuaglar KwikPen) INJECT 24 UNITS SUBCUTANEOUSLY DAILY Atorvastatin Calcium 80 MG Oral Tablet (Lipitor) TAKE 1 TABLET BY MOUTH EVERY DAY OneTouch UltraSoft Lancets Use as directed three times a day before meals. Use as directed 3 times a day. OneTouch Verio In Vitro Strip (Glucose Blood) Use as directed 3 times a day E11.9 OneTouch Verio w/Device Kit Use up to 4 times a day E11.9 Accu-Chek Brianna Plus In Vitro Strip (Glucose Blood) USE DIRECTED 3 TIMES A DAY. DX E11.9 Accu-Chek Softclix Lancets TEST BLOOD SUGAR 3 TIMES DAILY. DX:E11.9 Bisacodyl 5 MG Oral Tablet Delayed Release (DULCOLAX) Take 1 Tablet by mouth as needed. Blood Glucose Monitoring Suppl (ACCU-CHEK BRIANNA) JORGE Use up to 4 times daily Blood Glucose Monitoring Suppl (ACCU-CHEK BRIANNA PLUS) w/Device KIT Test blood sugar 3 times daily as directed. E11.9 Lancet Devices (ACCU-CHEK SOFTCLIX LANCET DEV) MISC Twice daily DX: E11.9 Albuterol Sulfate 108 (90 Base) MCG/ACT Inhalation Aerosol Powder Breath Activated Inhale by mouth. NEEDED acetaminophen (TYLENOL) 500 MG Tablet Take 1 Tablet by mouth every 4 hours as needed for Pain, Mild. Cholecalciferol (VITAMIN D3) 1000 units CAPS Take 1 Capsule by mouth in the morning. Not sure of strenght . aspirin 81 MG chewable tablet Take 1 Tablet by mouth in the morning. With food.. Review of patient's allergies indicates: Allergen Reactions Clarithromycin Confusion, "buzzing sound in head" Most Recent Immunizations Administered Date(s) Administered COVID-19 mRNA, LNP-s, No Preserve, 2-Dose Series (Plei) 07/30/2021 DT - Diptheria/Tetanus (PEDS) 06/04/2015 Pneumococcal Conjugate Vacc, 13 Valent (Prevnar) 04/26/2020 Pneumococcal Polysaccharide PPV23 (Pneumovax) 10/19/2021 SEASONAL INFLUENZA, PF, 6 M & Above, IM , (FLULAVAL or FLUZONE) 04/03/2019 Season Influenza, Quad, PF, Adjuvanted, 65+ Yrs, IM (FLUAD) 04/26/2020 Seasonal Influenza Virus Vaccine, Unspecified Formulation 04/03/2019 Seasonal Influenza, Quadrivalent Hd (Fluzone Hd) 06/01/2023 Seasonal Influenza, Quadrivalent, No Preserve, IM 03/29/2017 Seasonal Influenza, Split, IIV3, With Preserve, Inj 04/08/2014 TDAP (age 10 and older)(Boostrix) 06/04/2015 Zoster Vaccine Recombinant (Shingrix) 07/25/2018 Review of Systems: Physical Exam BP 96/54 (BP Site: Left Arm, BP Position: Sitting, BP Cuff Size: Regular) Comment: dynamap | Pulse 83 Comment: dynamap | Temp 36.8 C (98.2 F) (Tympanic) | Resp 16 | Wt 71.4 kg (157 lb 8 oz) | LMP10/15/1991 | SpO2 95% Comment: room air | BMI 29.76 kg/m | BSA 1.75 m Physical Exam Constitutional: Appearance: Normal appearance. HENT: Head: Normocephalic. Cardiovascular: Rate and Rhythm: Normal rate and regular rhythm. Pulmonary: Effort: Pulmonary effort is normal. Breath sounds: Normal breath sounds. Chest: Comments: No hematoma or skin abnormality. Mild swelling L rib. Tenderness on LUQ. Abdominal: General: Bowel sounds are normal. Tenderness: There is abdominal tenderness in the left upper quadrant. Musculoskeletal: Cervical back: Neck supple. Skin: General: Skin is warm. Neurological: Mental Status: She is alert and oriented to person, place, and time. Psychiatric: Mood and Affect: Mood normal. Assessment and Plan 1. Fall, initial encounter Recommend to use tylenol/lidocaine for pain, no ibuprofen while on plavix Will r/o spleen bleeding with CT for her tenderness - XR RIBS UNILATERAL W/PA CHEST MINIMUM 3 VIEWS - CT ABD/PELVIS WO IV/ORAL CONTRAST 2. halfway (current) use of anticoagulants Plavix Wrap-Up I have advised the patient to call our office with any worsening or new symptoms. I spent a total of 30-39 minutes (exact time 35 mins) on the date of service in preparation, delivery, and documentation of the care provided to Mike Orona excluding any time spent in the performance of separately billed services. Rosa Elena Sharma, MSN, TEXTILE COATING MACHINE OPERATOR [facility] documented in this encounter Nursing Notes * Raj Jhaveri, RN - 06/20/2023 8:07 AM EST Chief Complaint Patient presents with Fall Patient accompanied by son Franklin - he reports patient fell 2 days ago; patient denies hitting head or losing consciousness; patient having pain to left chest/rib area documented in this encounter Plan of Treatment Upcoming Encounters Date Type Department Care Team (Late st Contact Info) Description 07/10/2023 11:45 AM EST Imaging Radiology [address] [facility] [place] [address] 09/03/2023 10:40 AM EST Office Visit Family Practice [facility] [place] [address] [place] [address] Jo Flores PA-C [address] [facility] [place] [address] 10/29/2023 11:40 AM EDT Office Visit Rheumatology [place] [id number] [place] [address] Bert Osborne MD [address] [place] [address] Scheduled Orders Name Type Priority Associated Diagnoses Orde r Schedule CT ABD/PELVIS WO IV/ORAL CONTRAST Medical Imaging STAT Fall, initial encounter Ordered: 06/20/2023 Scheduled Procedures Name Priority Associated Diagnoses Date/Ti me COLONOSCOPY FLEXIBLE PROXIMAL DIAGNOSTIC Recall Screen for colon cancer Health Maintenance Due Date Last Done Comments Cologuard 2000 Sigmoidoscopy 2000 Hepatitis B (1 of 3 - Risk 3-dose series) 2015 Fecal Occult Blood Test 05/19/2020 05/19/20 19, 09/11/2016, 09/17/2008, Additional history exists COVID-19 Vaccine ( season) 2023 07/30/2021, 11/11/2020, 10/21/2020 Depression Screening 07/04/2023 07/04/2022 Mammogram 07/05/2023 07/05/2022, 06/16, 07/02/2020, Additional history exists HbA1c 08/23/2023 02/20/2023, 0307/2022, 07/05/2022, Additional history exists Albumin/Creatinine Ratio 10/14/2023 023, 10/11/2021, 04/25/2016, Additional history exists Diabetic Eye Exam 12/21/2023 12/20/2022, , 09/01/2020, Additional history exists Diabetic Foot Exam 02/13/2024 02/12/2023, 0 01/27/2022, 07/26/2020, Additional history exists GFR 02/21/2024 02/20/2023, 033 07/2022, 10/10/2021, Additional history exists O2 ASSESSMENT COMPLETED IN PAST YEAR FOR COPD 06/01/2024 06/20/2023 TSH 06/01/2024 06/01/2023, 08/0 02/2023, 12/14/2022, Additional history exists DTaP,Tdap,and Td Vaccines (3 - Td or Tdap) 06/04/2025 06/04/2015, 06/04/2015 DXA Scan 11/10/2027 11/09/2020, 04/0 03/2010, 03/28/2007, Additional history exists Colonoscopy 10/05/2030 10/05/2020, 03/2 09/2020, 05/26/2019, Additional history exists Colorectal Cancer Screening 10/05/2030 Zoster Vaccines Completed 07/25/2018, 05/10/2018 Pap Smear Discontinued 07/03/2019, 05/0 10/2015, 05/29/2012, Additional history exists COLONOSCOPY-ANNUAL AGES 18-100 Discontinued 10/05/2020, 10/05/2020, 05/26/2019, Additional history exists Pneumococcal Vaccine: 65+ Years Completed 10/19/2021, 04/26/2020, 11/08/2010 LUNG CANCER SCREENING - USE SMARTSET 18575 Completed 11/16/2022, 11/10/2021, 10/20/2020, Additional history exists [...] Not on filedocumented as of this encounter Procedures Procedure Name Priority Date/Time Associated Diagnosis Comments XR RIBS UNILATERAL W/PA CHEST MINIMUM 3 VIEWS STAT 06/20/2023 9:09 AM EST Fall, initial encounter documented in this encounter Results * XR RIBS UNILATERAL W/PA CHEST MINIMUM 3 VIEWS (06/20/2023 9:09 AM EST) Anatomical Region Laterality Modality Chest Computed Radiogr aphy 06/20/2023 10:1 0 AM EST Impressions 06/20/2023 10:07 AM EST IMPRESSION 1. No acute displaced rib fracture. 2. Stable chronic left-sided rib fractures. 3. No acute cardiopulmonary disease. Narrative 06/20/2023 10:07 AM EST EXAM XR RIBS UNILATERAL W/PA CHEST MINIMUM 3 VIEWS-06/20/2023 9:09 am HISTORY fall into chair 2 days ago COMPARISON Chest CT dated 11/16/2022 and chest radiograph dated 02/03/2022 TECHNIQUE Six views of the chest and left ribs were obtained FINDINGS LINES/DEVICES: None LUNGS/PLEURA: Clear lungs. No pleural effusion or pneumothorax. CARDIOVASCULAR/MEDIASTINUM: Within normal limits. BONES: No acute displaced rib fracture. Stable chronic fractures of the left posterior 7th through 11th and left anterior 7th and 8th ribs. OTHER: Unremarkable upper abdomen. Procedure Note Kamari Root MD - 06/20/2023 EXAM XR RIBS UNILATERAL W/PA CHEST MINIMUM 3 VIEWS-06/20/2023 9:09 am HISTORY fall into chair 2 days ago COMPARISON Chest CT dated 11/16/2022 and chest radiograph dated 02/03/2022 TECHNIQUE Six views of the chest and left ribs were obtained FINDINGS LINES/DEVICES: None LUNGS/PLEURA: Clear lungs. No pleural effusion or pneumothorax. CARDIOVASCULAR/MEDIASTINUM: Within normal limits. BONES: No acute displaced rib fracture. Stable chronic fractures of theleft posterior 7th through 11th and left anterior 7th and 8th ribs. OTHER: Unremarkable upper abdomen. IMPRESSION IMPRESSION 1. No acute displaced rib fracture. 2. Stable chronic left-sided rib fractures. 3. No acute cardiopulmonary disease. Rosa Elena [facility] (RAD GENER AL) documented in this encounter Visit Diagnoses Diagnosis Fall, initial encounter- Primary halfway (current) use of anticoagulants Long-term (current) use of anticoagulants documented in this encounter Advance Directives Latest Code Status on File Code Status Date Activated Date Inactivated Comments Full Code 07/23/2018 11:45 AM 07/24/2018 4:27 PM This o rder reflects the patients wishes and were consensually agreed upon. Care Teams Mobile Lab Technician Relationship Specialty Start Date End Date Oseas Macdonald III, MD [address] [place] [address] PCP - General Family Medicine 06/04/15 documented as of this encounter
--- OUTSIDE RECORDS SUMMARY | 2023-07-31 11:42 | External Medical Summary | Summary of Care ---
Author Name Unknown Organization [facility] Address [address] [place] [address] Phone [phone] Care Team Providers Care Production Maintenance Mechanic Name Role Phone Renae MEDINA MD, Oseas Singh Primary Care Provider [phone] Reason for Visit * Reason Onset Date Comments Test Results 06/03/2023 Encounter Details Date Type Department Care Team (Late st Contact Info) Description 06/03/2023 Telephone Family Practice [facility] [place] [address] [facility] [place] [address] Jo Flores PA-C 200 [facility] [place] [address] Test Results Allergies Active Allergy Reactions Criticality Noted Date Comments Clarithromycin 05/09/2010 Confusion, "buzzing sound in head" documented as of this encounter (statuses as of 06/04/2023) Medications Medication Sig Dispensed Refills Start Date [...] mouth daily as needed. 100 Cap 3 07/13/201 8 Active MEDICAL INSTRUCTIONS [facility]-for monitoring of med. compliance, filling of med. [...] DAILY. DX:E11.9 300 Each 3 1 Active Fluticasone Propionate 50 MCG/ACT Nasal Suspension (Flonase) ADMINISTER 2 SPRAYS INTO EACH NOSTRIL EVERY DAY 48 mL 3 2 Active Accu-Chek Katlyn Plus In Vitro Strip [...] day E11.9 100 Strip 11 3 Active OneTouch UltraSoft Lancets Use as directed three times a day before meals. Use as directed 3 times a day. 100 Each 3 3 Active Clopidogrel Bisulfate 75 MG Oral Tablet (pLAVix) TAKE 1 TABLET BY MOUTH EVERY DAY 90 Tablet 1 3 Active Atorvastatin Calcium 80 MG Oral [...] WITH BREAKFAST 180 Tablet 1 3 Active Trulicity 0.75 MG/0.5ML Subcutaneous Solution Pen-injector (Dulaglutide) INJECT 0.75MG UNDER THE SKIN ONE TIME PER WEEK 2 mL 1 3 Active Venlafaxine HCl ER 75 [...] other meds) 90 Tablet 0 3 Active Levothyroxine Sodium 75 MCG Oral Tablet (Levoxyl) TAKE 1 TAB BY MOUTH DAILY 1ST THING IN THE MORNING(AT LEAST 30 MIN PRIOR TO BREAKFAST OR OTHER MEDS) 90 Tablet 0 3 06/04/20 23 Discontinued documented as of this encounter (statuses as of 06/04/2023) Active Problems Problem Noted Date Diagnosed Date [...] as of this encounter (statuses as of 06/04/2023) Resolved Problems Problem Noted Date Diagnosed Date [...] as of this encounter (statuses as of 06/04/2023) Immunizations Name Administration Dates Next Due COVID-19 mRNA, LNP-s, No Pre serve, 2-Dose Series (Pfizer) 07/30/2021,11/11/2020,10/21/2020 DT - Diptheria/Tetanus (PEDS) 06/04/2015 Pneumococcal [...] encounter Miscellaneous Notes * Telephone Encounter - Lorri Armendariz LPN - 06/04/2023 2:38 PM EST Patient aware and verbalized understanding * Telephone Encounter - Jo Flores PA-C - 06/04/2023 9:00 AM EST Order signed. Please advise patient on dose decrease. Thank you! * Telephone Encounter - Shaniqua Barajas RPh - 06/03/2023 8:55 PM EST Patient's TSH is low but free T4 is in normal range TSH Results: Lab Results Component Value Date/Time TSH - [facility] 0.03 (L) 06/01/2023 12:19 PM TSH - [facility] 0.01 (L) 02/20/2023 11:18 AM T4 Results: Lab Results Component Value Date/Time T4, FREE - [facility] 1.2 06/01/2023 12:19 PM T4, FREE - [facility] 1.4 02/20/2023 11:18 AM Per provider on 06/01/23 OV, "Her last TSH was hyperthyroid with an elevated T4. She is taking her medication daily in the morning on an empty stomach as prescribed. We will recheck this level today.If it is still hyperthyroid, we will likely need to decrease her dose of Synthroid." Pt's currently taking Levothyroxine 75 mcg daily. Dose decrease of 50 mcg daily pending and recommend TSH recheck in 6 to 8 weeks. Pending Prescriptions: Disp Refills Levothyroxine Sodium 50 MCG Oral Tablet (*90 Tab*0 Sig: Take 1 Tablet by mouth daily first thing in the morning. (at least 30 min prior to breakfast or other meds) Please sign if agreeable and route back so I can advise her. Thank you, Shaniqua Barajas, PharmD Clinical Pharmacist [facility] (formerly [employer]) [phone] 06/03/2023, 8:58 PM documented in this encounter Plan of Treatment Upcoming Encounters Date Type Department Care Team (Late st Contact Info) Description 07/10/2023 11:45 AM EST Imaging Radiology [facility] [address] [place] [address] 09/03/2023 10:40 AM EST Office Visit Family Practice [facility] [address] [place] [address] Jo Flores PA-C [address] [place] [address] 10/29/2023 11:40 AM EDT Office Visit Rheumatology [facility] [address] [place] [address] Bert Osborne MD [address] [place] [address] Scheduled Procedures Name Priority Associated Diagnoses Date/Ti me COLONOSCOPY FLEXIBLE PROXIMAL DIAGNOSTIC Recall Screen for colon cancer Health Maintenance Due Date Last Done Comments Alpha-1 Antitrypsin 1973 Cologuard 2000 Sigmoidoscopy 2000 Hepatitis B (1 of 3 - Risk 3-dose series) 2015 Fecal Occult Blood Test 05/19/2020 05/19/20, 09/11/2016, 09/17/2008, Additional history exists COVID-19 Vaccine ( season) 2023 07/30/2021, 11/11/2020, 10/21/2020 Depression Screening 07/04/2023 07/04/2022 Mammogram 07/05/2023 07/05/2022, 06/16, 07/02/2020, Additional history exists HbA1c 08/23/2023 02/20/2023, 09/15, 07/05/2022, Additional history exists Albumin/Creatinine Ratio 10/14/2023 023, 10/11/2021, 04/25/2016, Additional history exists Diabetic Eye Exam 12/21/2023 12/20/2022, , 09/01/2020, Additional history exists Diabetic Foot Exam 02/13/2024 02/12/2023, 0 01/27/2022, 07/26/2020, Additional history exists GFR 02/21/2024 02/20/2023, 09/15, 10/10/2021, Additional history exists O2 ASSESSMENT COMPLETED IN PAST YEAR FOR COPD 06/01/2024 06/01/2023 TSH 06/01/2024 06/01/2023, 08/0 02/2023, 12/14/2022, Additional history exists DTaP,Tdap,and Td Vaccines (3 - Td or Tdap) 06/04/2025 06/04/2015, 06/04/2015 DXA Scan 11/10/2027 11/09/2020, 04/0 03/2010, 03/28/2007, Additional history exists Colonoscopy 10/05/2030 10/05/2020, 09/14, 05/26/2019, Additional history exists Colorectal Cancer Screening 10/05/2030 Zoster Vaccines Completed 07/25/2018, 05/10/2018 Pap Smear Discontinued 07/03/2019, 050 10/2015, 05/29/2012, Additional history exists COLONOSCOPY-ANNUAL AGES 18-100 Discontinued 10/05/2020, 10/05/2020, 05/26/2019, Additional history exists Pneumococcal Vaccine: 65+ Years Completed 10/19/2021, 04/26/2020, 11/08/2010 LUNG CANCER SCREENING - USE SMARTSET 15769 Completed 11/16/2022, 11/10/2021, 10/20/2020, Additional history exists Influenza Vaccine (FLU shot) Completed 06/01/2023, 07/04/2022, [...] and were consensually agreed upon. Care Teams Production Maintenance Mechanic Relationship Specialty Start Date End Date Oseas Macdonald III, MD [address] [place] [address] PCP - General Family Medicine 06/04/15 documented as of this encounter
--- OUTSIDE RECORDS SUMMARY | 2023-07-31 11:42 | External Medical Summary | Summary of Care ---
Author Name Unknown Organization [facility] Address [address] [place] [address] Phone [phone] Care Team Providers Care Communications Professor Name Role Phone Renae MEDINA MD, Oseas Singh Primary Care Provider [phone] Reason for Visit * Reason Onset Date Comments Follow Up Medication Administration 06/01/2023 Flu an d/or Pneumo Inj Encounter Details Date Type Department Care Team (Late st Contact Info) Description 06/01/2023 11:40 AM EST Office Visit [facility] [address] [facility] [place] [address] Jo Flores PA-C [address] [facility] [place], [place] [id number] Type 2 diabetes mellitus with hemoglobin A1c goal of less than 8.0% ([facility])*; Diabetes mellitus with peripheral angiopathy (HCC); Acquired hypothyroidism; Pure hypercholesterolemia; Systemic sclerosis (HCC); Obstructive lung disease (HCC); CREST syndrome (HCC); Carotid stenosis, non-symptomatic, bilateral; Subclavian arterial stenosis ([facility]); Esophagitis; Vitamin D deficiency; Lumbar degenerative disc disease; Degenerative disc disease, cervical; Dementia without behavioral disturbance (HCC); Undifferentiated connective tissue disease (HCC); Need for prophylactic vaccination and inoculation against influenza; Body mass index 29.0-29.9, adult Allergies Active Allergy Reactions Criticality Noted Date Comments Clarithromycin 05/09/2010 Confusion, "buzzing sound in head" documented as of this encounter (statuses as of 06/01/2023) Medications Medication Sig Dispensed Refills Start Date [...] 100 Cap 3 01/25/2018 Active MEDICAL INSTRUCTIONS [facility]-for monitoring of med. compliance, filling of med. dispenser, and vital signs. 2 hrs for week one, 1 hr weekly on going. 1 Each 1 08/15/2018 Active Lancet Devices (ACCU-CHEK SOFTCLIX LANCET DEV) MISCIndications:D M type 2, not at goal (HCC) Twice [...] DAILY. DX:E11.9 300 Each 3 12/25/2020 Active Fluticasone Propionate 50 MCG/ACT Nasal Suspension (Flonase) ADMINISTER 2 SPRAYS INTO EACH NOSTRIL EVERY DAY 48 mL 3 04/21/2022 Active Accu-Chek Katlyn Plus In Vitro Strip (Glucose Blood)Indications :Diabetes mellitus with peripheral angiopathy (HCC) USE DIRECTED [...] a day. 100 Each 3 08/15/2022 Active Clopidogrel Bisulfate 75 MG Oral Tablet (pLAVix) TAKE 1 TABLET BY MOUTH EVERY DAY 90 Tablet 1 10/31/2022 Active Atorvastatin Calcium 80 MG Oral Tablet (Lipitor) TAKE 1 TABLET BY MOUTH EVERY DAY 90 Tablet 3 10/31/2022 Active Insulin Glargine Solostar 100 UNIT/ML Subcutaneous Solution Pen-injector ([employer] Corporation[employer]lar KwikPen) INJECT 24 UNITS SUBCUTANEOUSLY DAILY 45 mL 3 12/22/2022 Active BD Pen Needle Mini U/F 31G X 5 MM (Insulin Pen Needle) USE ONCE DAILY WITH LANTUS SOLOSTAR DIRECTED. DX E11.9 100 Each 3 01/04/2023 Active Ezetimibe 10 MG Oral Tablet (Zetia)Indication s:Type 2 diabetes mellitus with hemoglobin A1c goal [...] Active rOPINIRole HCl 0.5 MG Oral Tablet (Requip)Indicatio ns:Restless legs syndrome TAKE 1 TABLET BY MOUTH EVERY DAY FOR RESTLESS LEGS 90 Tablet 03/11/2023 Active Losartan Potassium 25 MG Oral Tablet (Cozaar)Indicatio ns:Systemic sclerosis (HCC) TAKE 1/2 TABLET BY MOUTH [...] WITH BREAKFAST 180 Tablet 1 04/25/2023 Active Trulicity 0.75 MG/0.5ML Subcutaneous Solution Pen-injector (Dulaglutide) INJECT 0.75MG UNDER THE SKIN ONE TIME PER WEEK 2 mL 1 04/27/2023 Active Levothyroxine Sodium 75 MCG Oral Tablet (Levoxyl) TAKE 1 TAB BY MOUTH DAILY 1ST THING IN THE MORNING(AT LEAST 30 MIN PRIOR TO BREAKFAST OR OTHER MEDS) 90 Tablet 0 04/27/2023 Active Venlafaxine HCl ER 75 MG Oral [...] before bedtime. 90 Capsule 5 06/01/2023 Active Gabapentin 300 MG Oral Capsule (Neurontin) Take 1 Capsule by mouth in the morning and 1 Capsule at noon and 1 Capsule before bedtime. 90 Capsule 5 02/12/2023 06/01/20 23 Discontinu ed(Refill) documented as of this encounter (statuses as of 06/01/2023) Active Problems Problem Noted Date Diagnosed Date [...] as of this encounter (statuses as of 06/01/2023) Resolved Problems Problem Noted Date Diagnosed Date [...] as of this encounter (statuses as of 06/01/2023) Immunizations Name Administration Dates Next Due COVID-19 [...] Sign Reading Time Taken Comments Blood Pressure 132/76 06/01/2023 11:44 AM EST Pulse 103 06/01/2023 11:44 AM EST Temperature 37.1 C (98.7 F) 06/01/2023 11:[address] Respiratory Rate 16 06/01/2023 11:44 AM EST Oxygen Saturation 100% 06/01/2023 11:44 AM EST Inhaled Oxygen Concentration - - Weight 69.9 kg (154 lb 1.9 oz) 06/01/2023 11:44 AM EST Height 154.9 cm (5' 1") 06/01/2023 11:44 AM EST Body Mass Index 29.12 06/01/2023 11:44 AM EST documented in this [...] No 07/23/2018 documented as of this encounter Patient Instructions * Patient Instructions* Kelly Walters LPN - 06/01/2023 11:47 AM EST ~~PATIENT INSTRUCTIONS FOR FLU SHOT~~ Possible side effects of influenza vaccine, (flu shot), are usually mild and include: 1. Soreness or redness at injection site 2. Low grade fever 3. Body aches You may use Tylenol/Acetaminophen as needed for these symptoms. LET YOUR DOCTOR KNOW IMMEDIATELY IF YOU HAVE DIFFICULTY BREATHING OR SWALLOWING, EXPERIENCE ITCHINGOF FEET OR HANDS, HAVE SWELLING OF EYES, FACE OR INSIDE OF NOSE. documented in this encounter Progress Notes * Jo Flores PA-C - 06/01/2023 6:28 PM EST Subjective Mike Orona is a 68 year old female that presents for Follow Up and Medication Administration(Flu and/or Pneumo Inj) 68-year-old female presents today for routine follow up. She is by herself today, she is usually accompanied by her foaming machine operator. She could not be here today. Patient has continued issues with right hip and leg pain. We had addressed this before using gabapentin. She forgot to call in refills, so she is not been taking it. She states that it does help withthe pain, and she would be willing to restart it today. She otherwise is doing well, has no complaints or concerns. Continues to follow with rheumatology and vascular surgery as scheduled. She is had no recent changes to her medications. She denies fevers, chills, chest pain, shortness for breath, nausea, vomiting, diarrhea. Allergies and medications reviewed and verified. She is due for alpha 1 antitrypsin level to be drawn for her obstructive lung disease. This is ordered today. Her last TSH was hyperthyroid with an elevated T4. She is taking her medication daily in the morning on an empty stomach as prescribed. We will recheck this level today. If it is still hyperthyroid, we will likely need to decrease her dose of Synthroid. She understands. Objective BP 132/76 | Pulse 103 | Temp 37.1 C (98.7 F) (Tympanic) | Resp 16 | Ht 1.549 m (5' 1") | Wt 69.9 kg (154 lb 1.9 oz) | LMP 10/15/1991 | SpO2 100% | BMI 29.12 kg/m | BSA 1.73 m Body mass index is 29.12 kg/m. BP Readings from Last 3 Encounters: 06/01/23 132/76 02/12/23 134/76 02/01/23 140/74 Wt Readings from Last 3 Encounters: 06/01/23 69.9 kg (154 lb 1.9 oz) 02/12/23 67.1 kg (148 lb) 02/01/23 67.6 kg (149 lb) Physical Exam Vitals and nursing note reviewed. Constitutional: General: She is not in acute distress. Appearance: Normal appearance. HENT: Head: Normocephalic and atraumatic. Eyes: General: No scleral icterus. Extraocular Movements: Extraocular movements intact. Conjunctiva/sclera: Conjunctivae normal. Pupils: Pupils are equal, round, and reactive to light. Cardiovascular: Rate and Rhythm: Normal rate and regular rhythm. Heart sounds: No murmur heard. No friction rub. No gallop. Pulmonary: Effort: Pulmonary effort is normal. Breath sounds: Normal breath sounds. No stridor. No wheezing, rhonchi or rales. Musculoskeletal: Cervical back: Neck supple. Skin: General: Skin is warm and dry. Findings: No rash. Neurological: General: No focal deficit present. Mental Status: She is alert and oriented to person, place, and time. Psychiatric: Mood and Affect: Mood normal. Behavior: Behavior normal. Assessment and plan 1. Type 2 diabetes mellitus with hemoglobin A1c goal of less than 8.0% (HCC) Stable on current medication regimen. No changes made today. Last A1c was 5.3 2. Diabetes mellitus with peripheral angiopathy (HCC) 3. Acquired hypothyroidism Recheck TSH and T4 today. May need to decrease her dose of Synthroid pending results. - TSH WITH FREE T4 IF INDICATED; Future 4. Pure hypercholesterolemia LDL 42. No change needed today 5. Systemic sclerosis (HCC) Continue follow-up with Rheumatology 6. Obstructive lung disease (HCC) - ALPHA 1 ANTITRYPSIN (AAT) QN AND PHENOTYPE; Future 7. CREST syndrome (HCC) Continue follow up with Rheumatology 8. Carotid stenosis, non-symptomatic, bilateral Continue follow up with vascular surgery 9. Subclavian arterial stenosis (HCC) As above 10. Esophagitis 11. Vitamin D deficiency 12. Lumbar degenerative disc disease We will restart gabapentin to help with her hip pain, which I suspect is caused by her degenerativedisc disease in her back, and possible diabetic neuropathy. 13. Degenerative disc disease, cervical 14. Dementia without behavioral disturbance (HCC) 15. Undifferentiated connective tissue disease (HCC) 16. Need for prophylactic vaccination and inoculation against influenza - INFLUENZA VACC, QUAD, HIGH DOSE (FLUZONE HD) 17. Body mass index 29.0-29.9, adult Follow up Follow-up: Return in about 3 months (around 09/01/2023). | Check-out note: Routine follow-up Labs today Total time today including reviewing chart before the visit, pertinent labs, imaging reports, face to face time, and documentation time was 20 minutes. The above was discussed and understanding was expressed. Jo Flores PA-C * Kelly Walters LPN - 06/01/2023 11:47 AM EST PRE - ADMINISTRATION DOCUMENTATION Are you experiencing any cold symptoms or fever? No Have you had Guillain-Quakake Syndrome (an illness that causes paralysis) within the last 6 weeks? No Have you had the flu shot in the past? YES Have you ever had a reaction to the flu shot? No Kelly Walters LPN, 06/01/2023 11:47 AM Immunization Administration Documentation Time Out Procedure Performed: Yes Patient Identified (Ask Name/Date of ): Yes Does the patient have a fever greater than 101 degrees today? No Patient allergic to latex? No VFC Stock: No Immunization(s) verified: Yes, Immunization Name: Flu, VIS Sheet(s) given: Yes Verified Side and Site: Yes Verified Shot(s) with Parent(s)/Patient: Yes documented in this encounter Nursing Notes * Kelly Walters LPN - 06/01/2023 11:44 AM EST Patient presents today for a follow up. She wanted to discuss the pain she is having in her hips. documented in this encounter Plan of Treatment Upcoming Encounters Date Type Department Care Team (Late st Contact Info) Description 07/10/2023 11:45 AM EST Imaging Radiology [address] [facility] [place] [address] 09/03/2023 10:40 AM EST Office Visit Family Practice [facility] [place] [address] [place] [address] Jo Flores PA-C [address] [place] [address] 10/29/2023 11:40 AM EDT Office Visit Rheumatology [place] [address] [address] [place] [address] Bert Osborne MD [address] [place] [address] Pending Results Name Type Priority Associated Diagnoses Date /Time ALPHA 1 ANTITRYPSIN (AAT) QN AND PHENOTYPE Lab Routine Obstructive lung disease (HCC) 06/01/2023 12:19 PM EST Scheduled Orders Name Type Priority Associated Diagnoses Orde r Schedule ALPHA 1 ANTITRYPSIN (AAT) QN AND PHENOTYPE Lab Routine Obstructive lung disease (HCC) Expected: 06/01/2023, Expires: 06/01/2024 Scheduled Procedures Name Priority Associated Diagnoses Date/Ti [...] 02/12/2023, 0 01/27/2022, 07/26/2020, Additional history exists O2 ASSESSMENT COMPLETED IN PAST YEAR FOR COPD 02/13/2024 06/01/2023 GFR 02/21/2024 02/20/2023, 09/15, 10/10/2021, Additional history exists TSH 02/21/2024 02/20/2023, 06/0 07/2022, 10/13/2022, Additional history exists DTaP,Tdap,and Td Vaccines (3 [...] 11/08/2010 LUNG CANCER SCREENING - USE SMARTSET [id number] Completed 11/16/2022, 11/10/2021, 10/20/2020, Additional history exists [...] as of this encounter Visit Diagnoses Diagnosis Type 2 diabetes mellitus with hemoglobin A1c goal of less than 8.0% (HCC)- Primary Diabetes mellitus with peripheral angiopathy (HCC) Type II or unspecified type diabetes mellitus with peripheral circulatory disorders, not stated as uncontrolled Acquired hypothyroidism Unspecified hypothyroidism Pure hypercholesterolemia Systemic sclerosis (HCC) Systemic sclerosis Obstructive lung disease (HCC) Chronic airway obstruction, not elsewhere classified CREST syndrome (HCC) Systemic sclerosis Carotid stenosis, non-symptomatic, bilateral Subclavian arterial stenosis (HCC) Stricture of artery Esophagitis Esophagitis, unspecified Vitamin D deficiency Unspecified vitamin D deficiency Lumbar degenerative disc disease Degeneration of lumbar or lumbosacral intervertebral disc Degenerative disc disease, cervical Degeneration of cervical intervertebral disc Dementia without behavioral disturbance (HCC) Dementia, unspecified, without behavioral disturbance Undifferentiated connective tissue disease (HCC) Unspecified diffuse connective tissue disease Need for prophylactic vaccination and inoculation against influenza Body mass index 29.0-29.9, adult Body Mass Index 29.0-29.9, adult documented in this encounter Advance Directives Latest Code Status on File Code Status Date Activated Date Inactivated Comments Full Code 07/23/2018 11:45 AM 07/24/2018 4:27 PM This o rder reflects the patients wishes and were consensually agreed upon. Care Teams Communications Professor Relationship Specialty Start Date End Date Oseas Macdonald III, MD [address] [facility] [place] [address] PCP - General Family Medicine 06/04/15 documented as of this encounter
--- OUTSIDE RECORDS SUMMARY | 2023-07-31 11:42 | External Medical Summary | Summary of Care ---
Author Name Unknown Organization [facility] Address [address] [place] [address] Phone [phone] Care Team Providers Care Hair Tinter Name Role Phone Renae MEDINA MD, Oseas Singh Primary Care Provider [phone] Reason for Visit * Reason Onset Date Comments Test Results 06/03/2023 Encounter Details Date Type Department Care Team (Late st Contact Info) Description 06/03/2023 Telephone Family Practice [facility] [place] 200 [facility] [place] [address] Jo Flores PA-C 200 [facility] [place] [address] Test Results Allergies Active Allergy Reactions Criticality Noted Date Comments Clarithromycin 05/09/2010 Confusion, "buzzing sound in head" documented as of this encounter (statuses as of 06/05/2023) Medications Medication Sig Dispensed Refills Start Date [...] Cap 3 07/13/201 8 Active MEDICAL INSTRUCTIONS Group Home-for monitoring of med. compliance, filling of [...] as of this encounter (statuses as of 06/05/2023) Active Problems Problem Noted Date Diagnosed Date [...] as of this encounter (statuses as of 06/05/2023) Resolved Problems Problem Noted Date Diagnosed Date [...] as of this encounter (statuses as of 06/05/2023) Immunizations Name Administration Dates Next Due COVID-19 [...] as of this encounter Miscellaneous Notes * Addendum Note - Yassine Alicia, [facility] - 06/05/2023 12:02 PM ESTAddended by: YASSINE ALICIA on: 06/05/2023 12:02 PM Modules accepted: Orders * Telephone Encounter - Natasha Jacome PHARM Tech - 06/05/2023 10:53 AM EST Caregiver calling requesting clarification on Levothyroxine. States pt has 75 MCG, and 50 MCG. Reports RPh at [facility] had no explanation on the dose change. Advised per [facility] note regarding TSH level being low, in which dose was decreased from 75 MCG to 50 MCG. Reported to have re-check in 6-8 weeks, Thank you, Natasha Jacome [place]ongsman I [facility]) 06/05/2023,10:55 AM * Telephone Encounter - Lorri Aremndariz LPN - 06/04/2023 2:38 PM EST Patient aware and verbalized understanding * Telephone Encounter - Jo Flores PA-C - 06/04/2023 9:00 AM EST Order signed. Please advise patient on dose decrease. Thank you! * Telephone Encounter - Yassine Alicia RPh - 06/03/2023 8:55 PM EST Patient's [...] so I can advise her. Thank you, Yassine Alicia, PharmD Clinical Pharmacist [facility] ([facility]) (formerly Telepharmacy) [phone] 06/03/2023, 8:58 PM documented in this encounter Plan of Treatment Upcoming Encounters Date Type Department Care Team (Late st Contact Info) Description 07/10/2023 11:45 AM EST Imaging Radiology [address] 132 [facility] [place] [address] 09/03/2023 10:40 AM EST Office Visit Family Practice [facility] 200 [facility] [place] [address] Jo Flores PA-C 200 [facility] [place] [address] 10/29/2023 11:40 AM EDT Office Visit Rheumatology [place] [id number] [facility] [place] [address] Bert Osborne MD [address] [place] [address] Scheduled Orders Name Type Priority Associated Diagnoses Orde r Schedule TSH WITH FREE T4 IF INDICATED Lab Routine Acquired hypothyroidism Expected: 06/26/2023 (Approximate), Expires: 06/05/2024 Scheduled Procedures Name Priority Associated Diagnoses Date/Ti [...] 11/08/2010 LUNG CANCER SCREENING - USE SMARTSET [id number] Completed 11/16/2022, 11/10/2021, 10/20/2020, Additional history exists [...] as of this encounter Visit Diagnoses Diagnosis Acquired hypothyroidism- Primary Unspecified hypothyroidism documented in this encounter Advance Directives Latest Code Status on File Code Status Date Activated Date Inactivated Comments Full Code 07/23/2018 11:45 AM 07/24/2018 4:27 PM This o rder reflects the patients wishes and were consensually agreed upon. Care Teams Hair Tinter Relationship Specialty Start Date End Date Oseas Macdonald III, MD 200 [facility] [address] PCP - General Family Medicine 06/04/15 documented as of this encounter
--- OUTSIDE RECORDS SUMMARY | 2023-07-31 11:42 | External Medical Summary | Summary of Care ---
Author Name Unknown Organization [facility] Address [address] [place] [address] Phone [phone] Care Team Providers Care Loom Fixer Apprentice Name Role Phone Renae MEDINA MD, Oseas Singh Primary Care Provider [phone] Reason for Visit * Reason Onset Date Comments Test Results 06/03/2023 Encounter Details Date Type Department Care Team (Late st Contact Info) Description 06/03/2023 Telephone Family Practice [facility] [place] 200 [facility] [place] [address] Jo Flores PA-C 200 [facility] [place] [address] Test Results Allergies Active Allergy Reactions Criticality [...] Cap 3 07/13/201 8 Active MEDICAL INSTRUCTIONS Long Term-for monitoring of med. compliance, filling of med. [...] encounter Miscellaneous Notes * Telephone Encounter - Jo Flores PA-C [...] [facility] ([facility]) (formerly Telepharm[facility]) [phone] 06/03/2023, 8:58 PM documented in this encounter Plan of Treatment Upcoming Encounters Date Type Department Care Team (Late st Contact Info) Description 07/10/2023 11:45 AM EST Imaging Radiology [address] 132 [facility] [place] [address] 09/03/2023 10:40 AM EST Office Visit Family [facility] 200 [place] [address] Jo Flores PA-C [address] [place] [address] 10/29/2023 11:40 AM EDT Office Visit Rheumatology [facility] [address] [place] [address] Bert Osborne MD [address] [place] [address] Scheduled Procedures Name Priority Associated Diagnoses Date/Ti [...] 03/28/2007, Additional history exists Colonoscopy 10/05/2030 10/05/2020, 2 09/2020, 05/26/2019, Additional history exists Colorectal Cancer Screening 10/05/2030 Zoster Vaccines Completed 07/25/2018, 05/10/2018 Pap Smear Discontinued 07/03/2019, 050 10/2015, 05/29/2012, Additional history exists COLONOSCOPY-ANNUAL AGES 18-100 Discontinued 10/05/2020, 10/05/2020, 05/26/2019, Additional history exists Pneumococcal Vaccine: 65+ Years Completed 10/19/2021, 04/26/2020, 11/08/2010 LUNG CANCER SCREENING - USE SMARTSET [id number] Completed 11/16/2022, 11/10/2021, 10/20/2020, Additional history exists [...] and were consensually agreed upon. Care Teams Loom Fixer Apprentice Relationship Specialty Start Date End Date Oseas Macdonald III, MD 200 [facility] [place], [place] [address] PCP - General Family Medicine 06/04/15 documented as of this encounter
--- OUTSIDE RECORDS SUMMARY | 2023-07-31 11:42 | External Medical Summary | Summary of Care ---
Author Name Unknown Organization [facility] Address [address] [place] [address] Phone [phone] Care Team Providers Care Sports Development Officer Name Role Phone Renae MEDINA MD, Rashaad Singh Primary Care Provider [phone] Reason for Visit * Reason Comments eRx-Medication Refill Encounter Details Date Type Department Care Team (Late st Contact Info) Description 06/05/2023 Refill Family Practice [facility] 200 [facility] [place] [address] Rashaad Tran III, MD 200 [facility] [place] [address] Allergies Active Allergy Reactions Criticality Noted Date Comments Clarithromycin 05/09/2010 Confusion, "buzzing sound in head" documented as of this encounter (statuses as of 06/06/2023) Medications Medication Sig Dispensed Refills Start Date [...] 100 Cap 3 8 Active MEDICAL INSTRUCTIONS [facility]-for monitoring of med. compliance, filling of med. dispenser, and vital signs. 2 hrs for week one, 1 hr weekly on going. 1 Each 1 9 Active Lancet Devices (ACCU-CHEK SOFTCLIX LANCET DEV) MISCIndications: DM type 2, not at goal (HCC) Twice daily DX: E11.9 1 Each 11 9 Active Blood Glucose Monitoring Suppl (ACCU-CHEK BRIANNA PLUS) w/Device KIT Test blood sugar 3 times daily as directed. E11.9 1 Kit 0 9 Active Blood Glucose Monitoring Suppl (ACCU-CHEK BRIANNA) JORGE Use up to 4 times daily 1 Device 0 9 Active Bisacodyl 5 MG Oral Tablet Delayed Release (DULCOLAX) Take 1 Tablet by mouth as needed. 0 Active Accu-Chek Softclix Lancets TEST BLOOD SUGAR 3 TIMES DAILY. DX:E11.9 300 Each 3 1 Active Accu-Chek Brianna Plus In Vitro Strip (Glucose Blood)Indication s:Diabetes [...] a day. 100 Each 3 3 Active Atorvastatin Calcium 80 MG Oral [...] EVERY DAY 90 Tablet 1 3 Active Fluticasone Propionate 50 MCG/ACT Nasal Suspension (Flonase) ADMINISTER 2 SPRAYS INTO EACH NOSTRIL EVERY DAY 48 mL 3 2 06/06/20 23 Discontinued Clopidogrel Bisulfate 75 MG Oral Tablet (pLAVix) TAKE 1 TABLET BY MOUTH EVERY DAY 90 Tablet 1 3 06/06/20 23 Discontinued Trulicity 0.75 MG/0.5ML Subcutaneous Solution Pen-injector (Dulaglutide) INJECT 0.75MG UNDER THE SKIN ONE TIME PER WEEK 2 mL 1 3 06/06/20 23 Discontinued documented as of this encounter (statuses as of 06/06/2023) Active Problems Problem Noted Date Diagnosed Date [...] as of this encounter (statuses as of 06/06/2023) Resolved Problems Problem Noted Date Diagnosed Date [...] as of this encounter (statuses as of 06/06/2023) Immunizations Name Administration Dates Next Due COVID-19 mRNA, LNP-s, No Pre serve, 2-Dose Series ([employer]) 07/30/2021,11/11/2020,10/21/2020 DT - Diptheria/Tetanus (PEDS) 06/04/2015 Pneumococcal [...] encounter Miscellaneous Notes * Telephone Encounter - Suha Milligan [facility] - 06/06/2023 11:51 AM ESTSigned Prescriptions: Disp Refills Fluticasone Propionate 50 MCG/ACT Nasal Gonzalez*48 mL 3 Sig: ADMINISTER 2 SPRAYS INTO EACH NOSTRIL EVERY DAYAuthorizing Provider: RASHAAD TRAN III User: SUHA MILLIGAN Trulicity 0.75 MG/0.5ML Subcutaneous Solut*6 mL 2 Sig: INJECT 0.75 MG SUBCUTANEOUSLY ONE TIME PER WEEKAuthorizing Provider: RASHAAD TRAN III User: SUHA MILLIGAN ClopidogrelBisulfate 75 MG Oral Tablet (p*90 Tab*1 Sig: TAKE 1 TABLET BY MOUTH EVERY DAYAuthorizing Provider: RASHAAD TRAN III User: SUHA MILLIGAN documented in this encounter Plan of Treatment Upcoming Encounters Date Type Department Care Team (Late st Contact Info) Description 07/10/2023 11:45 AM EST Imaging Radiology [address] 132 [facility] [place] [address] 09/03/2023 10:40 AM EST Office Visit [facility] [address] [place] [address] Jo Flores PA-C [address] [place] [address] 10/29/2023 11:40 AM EDT Office Visit Rheumatology [place] [id number] [place] [address] Bert Osborne MD [address] [place] [address] [place] [address] Scheduled Procedures Name Priority Associated Diagnoses Date/Ti [...] Completed 07/25/2018, 05/10/2018 Pap Smear Discontinued 07/03/2019, 05/10/2015, 05/29/2012, Additional history exists COLONOSCOPY-ANNUAL AGES 18-100 Discontinued 10/05/2020, 10/05/2020, 05/26/2019, Additional history exists Pneumococcal Vaccine: 65+ Years Completed 10/19/2021, 04/26/2020, 11/08/2010 LUNG CANCER SCREENING - USE SMARTSET [id number] Completed 11/16/2022, 11/10/2021, 10/20/2020, Additional history exists [...] and were consensually agreed upon. Care Teams Sports Development Officer Relationship Specialty Start Date End Date Rashaad Tran III, MD [address] [place] [address] PCP - General Family Medicine 06/04/15 documented as of this encounter
--- OUTSIDE RECORDS SUMMARY | 2023-07-31 11:42 | External Medical Summary | Summary of Care ---
Author Name Unknown Organization [facility] Address [address] [place] [address] Phone [phone] Care Team Providers Care Bilingual Speech Language Pathologist Name Role Phone Renae MEDINA MD, Oseas Singh Primary Care Provider [phone] Reason for Visit * Reason Onset Date Comments Test Results 06/03/2023 Encounter Details Date Type Department Care Team (Late st Contact Info) Description 06/03/2023 Telephone Family Practice [facility] [place] 200 [facility] [place] [address] Jo Flores PA-C 200 [facility] [place] [address] Test Results Allergies Active Allergy Reactions Criticality [...] Cap 3 07/13/201 8 Active MEDICAL INSTRUCTIONS Assisted-for monitoring of med. compliance, filling of med. [...] encounter Miscellaneous Notes * Telephone Encounter - Natasha Jacome, jail keeper - 06/05/2023 10:53 AM EST Caregiver calling requesting clarification on Levothyroxine. States pt has 75 MCG, and 50 MCG. Reports RPh at [facility] had no explanation on the dose change. Advised per [facility] note regarding TSH level being low, in which dose was decreased from 75 MCG to 50 MCG. Reported to have re-check in 6-8 weeks, Thank you, Natasha Jacome Silver Lap Machine Tender I [facility]) 06/05/2023,10:55 AM * Telephone Encounter - Lorri Armendariz LPN - 06/04/2023 2:38 PM EST Patient aware and verbalized understanding * Telephone Encounter - Jo Flores PA-C - 06/04/2023 9:00 AM EST Order signed. Please advise patient on dose decrease. Thank you! * Telephone Encounter - Shaniqua Barajas [facility] - 06/03/2023 8:55 PM EST Patient's TSH [...] [facility] ([facility]) (formerly Telepharmacy) [phone] 06/03/2023, 8:58 PM documented in this encounter Plan of Treatment Upcoming Encounters Date Type Department Care Team (Late st Contact Info) Description 07/10/2023 11:45 AM EST Imaging Radiology [address] 132 [facility] [place] [address] 09/03/2023 10:40 AM EST Office Visit Family Practice [facility] [place] 200 [facility] [place] [address] Jo Flores PA-C 200 [facility] [place] [address] 10/29/2023 11:40 AM EDT Office Visit Rheumatology [facility] [address] [place] [address] Bert Osborne MD [address] [place] [address] Scheduled Procedures Name Priority Associated Diagnoses Date/Ti [...] 11/08/2010 LUNG CANCER SCREENING - USE SMARTSET 13760 Completed 11/16/2022, 11/10/2021, 10/20/2020, Additional history exists [...] and were consensually agreed upon. Care Teams Bilingual Speech Language Pathologist Relationship Specialty Start Date End Date Oseas Macdonald III, MD 200 [place] [address] PCP - General Family Medicine 06/04/15 documented as of this encounter
--- OUTSIDE RECORDS SUMMARY | 2023-07-31 11:43 | External Medical Summary | Summary of Care ---
Author Name Unknown Organization [facility] Address [address] [place] [address] Phone [phone] Care Team Providers Care Automotive Technician Instructor Name Role Phone Renae MEDINA MD, John E Primary Care Provider [phone] Reason for Visit * Reason Comments eRx-Medication Refill Encounter Details Date Type Department Care Team Description 04/21/2023 Refill Family Practice [facility] 200 [facility] [place] [address] Rashaad Tran III, MD 200 [facility] [place] [address] Allergies Active Allergy Reactions Severity Noted Date Comments Clarithromycin 05/09/2010 Confusion, "buzzing sound in head" documented as of this encounter (statuses as of 04/23/2023) Medications Medication Sig Dispensed Refills Start Date [...] 100 Cap 3 8 Active MEDICAL INSTRUCTIONS Residential-for monitoring of med. compliance, filling of med. [...] EVERY DAY 48 mL 3 2 Active Pantoprazole Sodium 40 MG Oral Tablet Delayed Release (Protonix) TAKE 1 TABLET BY MOUTH EVERY DAY 30 MINUTES BEFORE 1ST MEAL 90 Tablet 3 2 Active Accu-Chek Katlyn Plus In [...] a day. 100 Each 3 3 Active Venlafaxine HCl ER 75 MG Oral Capsule Extended Release 24 Hour (Effexor XR) TAKE 1 CAPSULE BY MOUTH DAILY. DO NOT CUT, CRUSH, OR CHEW 90 Capsule 1 3 Active Trulicity 0.75 MG/0.5ML Subcutaneous Solution Pen-injector (Dulaglutide) Inject 0.75 mg under the skin once a week. 2 mL 6 3 Active Clopidogrel Bisulfate 75 MG Oral Tablet (pLAVix) TAKE 1 TABLET BY MOUTH EVERY DAY 90 Tablet 1 3 Active Atorvastatin Calcium 80 MG Oral Tablet (Lipitor) TAKE 1 TABLET BY MOUTH EVERY DAY 90 Tablet 3 3 Active Insulin Glargine Solostar 100 UNIT/ML Subcutaneous Solution Pen-injector ([facility] Health[facility] KwikPen) INJECT 24 UNITS SUBCUTANEOUSLY DAILY 45 mL 3 3 Active BD Pen Needle Mini U/F 31G X 5 MM (Insulin Pen Needle) USE ONCE DAILY WITH LANTUS SOLOSTAR DIRECTED. DX E11.9 100 Each 3 3 Active Ferrous Sulfate 325 (65 Fe) MG Oral Tablet (Feosol) TAKE 2 TABLETS BY MOUTH EVERY DAY WITH BREAKFAST 180 Tablet 0 3 Active Ezetimibe 10 MG Oral Tablet [...] RESTLESS LEGS 90 Tablet 11 3 Active Levothyroxine Sodium 75 MCG Oral Tablet (Levoxyl) TAKE 1 TAB BY MOUTH DAILY 1ST THING IN THE MORNING(AT LEAST 30 MIN PRIOR TO BREAKFAST OR OTHER MEDS) 90 Tablet 0 3 Active Losartan Potassium 25 MG Oral [...] AT BEDTIME 90 Tablet 1 3 Active Mirtazapine 30 MG Oral Tablet (Remeron) TAKE 1 TABLET BY MOUTH EVERYDAY AT BEDTIME 90 Tablet 1 3 04/23/20 23 Discontinued traZODone HCl 50 MG Oral Tablet (Desyrel) TAKE 1 TABLET BY MOUTH EVERY DAY AT BEDTIME NEEDED 90 Tablet 1 3 04/23/20 23 Discontinued documented as of this encounter (statuses as of 04/23/2023) Active Problems Problem Noted Date Subclavian arterial stenosis 07/26/2020 Undifferentiated connective tissue disea se 10/21/2019 Dementia without behavioral disturbance 04/03/2019 Overview: ICD-10 update of inactive term Type 2 diabetes mellitus with hemoglobin A1c goal of less than 8.0% 04/03/2019 Carotid stenosis, non-symptomatic, bilat eral 03/12/2019 Left subclavian artery occlusion 019 Obstructive lung disease 12/19/2018 Unspecified mood (affective) disorder Other emphysema 09/17/2018 Diabetes mellitus with peripheral angiop athy 06/18/2017 Family history of breast cancer in nig[place] r 11/17/2015 Pure hypercholesterolemia 04/20/2014 Scleroderma, 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 Lumbar spinal stenosis 10/23/2013 Lumbar degenerative disc disease 014 Degenerative disc disease, cervical 10/14 Vitamin D deficiency 02/20/2013 CREST syndrome 08/14/2011 Encounter for long-term (current) use of medications 12/01/2010 Overview: ICD-10 update of inactive term ADVANCE DIRECTIVE INFORMATION 02/09/2005 Overview: No, Advance Directive brochure given to patient. anxiety 04/07/2004 Hypothyroidism 02/02/2003 Depression 02/02/2003 Systemic sclerosis 12/29/2002 Myalgia and myositis 12/29/2002 Esophagitis 12/29/2002 Overview: ICD-10 update of inactive term documented as of this encounter (statuses as of 04/23/2023) Resolved Problems Problem Noted Date Resolved Date Controlled substance agreement signed 12/22/2015 07/04/2018 Undifferentiated connective tissue disease 03/2312/25/2016 Carotid artery stenosis with cerebral infarction over 8 weeks ago 03/23/2015 07/04/2018 DM type 2, goal: symptom mgmt 06/08/2014 Peripheral vascular disease 10/23/201302/14 Encounter for long-term (current) use of medicat ions 11/25/2010 12/01/2010 Overview: ICD-10 update of inactive term Elevated liver enzymes 08/16/2010 8 Tobacco use disorder 11/16/2006 07/04/2018 Menopausal and postmenopausal disorder 4 05/20/2018 documented as of this encounter (statuses as of 04/23/2023) Immunizations Name Administration Dates Next Due COVID-19 mRNA, LNP-s, No Pre serve, 2-Dose Series ([employer]) 07/30/2021,11/11/2020,10/21/2020 DT - Diptheria/Tetanus (PEDS) 06/04/2015 Pneumococcal Conjugate Vacc, 13 Valent (Prevnar) 04/26/2020 Pneumococcal Polysaccharide PPV23 (Pneumovax) 10/19/2021,11/08/2010 SEASONAL INFLUENZA, PF, 6 M & Above, IM , (FLULAVAL or FLUZONE) 04/03/2019,04/04/2018 Season Influenza, Quad, PF, Adjuvanted, 65+ Yrs, IM (FLUAD) 04/26/2020 Seasonal Influenza Virus Vac cine, Unspecified Formulation 04/03/2019,04/04/2018,03/29/2017,03/22,05/17/2015,04/08/2014,05/09/2011 ,06/06/2010,06/12/2006 Seasonal Influenza, Quadriva lent Hd (Fluzone Hd) 07/04/2022,04/20/2021 Seasonal Influenza, Quadriva lent, No Preserve, IM [...] ure alcohol) 1 drink every 2 weeks Alcohol Habits Answer Date Recorded How often do you have a drink containing alcohol ? 2-3 times a week 07/03/2019 How many drinks containing a lcohol do you have on a typical day when you are drinking? Not asked How often do you have six or more drinks on one occasion? Not asked Sex Assigned at Date Recorded Not on file Job Start Date Occupation [...] or making decisions? (5 years old or older No 07/23/2018 documented as of this encounter Miscellaneous Notes * Telephone Encounter - Preeti Hooks, [facility] - 04/23/2023 7:53 AM EDTSigned Prescriptions: Disp Refills traZODone HCl 50 MG Oral Tablet (Desyrel) 90 Tab*1 Sig: TAKE 1 TABLET BY MOUTH EVERY DAY AT BEDTIME NEEDEDAuthorizing Provider: RASHAAD TRAN III User: PREETI HOOKS Mirtazapine 30 MG Oral Tablet (Remeron) 90 Tab*1 Sig: TAKE 1 TABLET BY MOUTH EVERYDAY AT BEDTIMEAuthorizing Provider: RASHAAD TRAN III User: PREETI HOOKS documented in this encounter Plan of Treatment Upcoming Encounters Date Type Specialty Care Team Description 05/15/2023 Office Visit Family Medicine Jo Flores PA-C 200 [place] [address] 07/10/2023 Imaging Radiology 09/20/2023 Office Visit Rheumatology Bert Osborne MD [address] [place] [address] Scheduled Procedures Name Priority Associated Diagnoses Date/Ti me COLONOSCOPY FLEXIBLE PROXIMAL DIAGNOSTIC Recall Screen for colon cancer Health Maintenance Due Date Last Done Comments Alpha-1 Antitrypsin 1973 Cologuard 2000 Sigmoidoscopy 2000 Fecal Occult Blood Test 05/19/2020 05/19/20 19, 09/11/2016, 09/17/2008, Additional history exists COVID-19 Vaccine ( season) 2023 07/30/2021, 11/11/2020, 10/21/2020 Influenza Vaccine (FLU shot) (#1) 2023 07/04/2022, 04/20/2021, 04/26/2020, Additional history exists Depression Screening 07/04/2023 07/04/2022 Mammogram 07/05/2023 07/05/2022, 06/16, 07/02/2020, Additional history exists HbA1c 08/23/2023 02/20/2023, 09/15, 07/05/2022, Additional history exists Albumin/Creatinine Ratio 10/14/2023 023, 10/11/2021, 04/25/2016, Additional history exists DIABETES-EYE EXAM 12/21/2023 12/20/2022, , 09/01/2020, Additional history exists Diabetic Foot Exam 02/13/2024 02/12/2023, 0 01/27/2022, 07/26/2020, Additional history exists O2 ASSESSMENT COMPLETED IN PAST YEAR FOR COPD 02/13/2024 02/12/2023 GFR 02/21/2024 02/20/2023, 09/15, 10/10/2021, Additional history exists TSH 02/21/2024 02/20/2023, 06/0 07/2022, 10/13/2022, Additional history exists DTaP,Tdap,and Td Vaccines (3 - Td or Tdap) 06/04/2025 06/04/2015, 06/04/2015 DXA Scan 11/10/2027 11/09/2020, 04/0 03/2010, 03/28/2007, Additional history exists Colonoscopy 10/05/2030 10/05/2020, 09/14, 05/26/2019, Additional history exists Colorectal Cancer Screening 10/05/2030 Zoster Vaccines Completed 07/25/2018, 05/10/2018 Pap Smear Discontinued 07/03/2019, 10/2015, 05/29/2012, Additional history exists COLONOSCOPY-ANNUAL AGES 18-100 Discontinued 10/05/2020, 10/05/2020, 05/26/2019, Additional history exists Pneumococcal Vaccine: 65+ Years Completed 10/19/2021, 04/26/2020, 11/08/2010 LUNG CANCER SCREENING - USE SMARTSET [id number] Completed 11/16/2022, 11/10/2021, 10/20/2020, Additional history exists GARDASIL-HPV IMMUNIZATION SERIES Aged Out No longer eligible based on patient's age to complete this topic Hepatitis B Aged Out No longer eligi ble based on patient's age to complete this [...] and were consensually agreed upon. Care Teams Automotive Technician Instructor Relationship Specialty Start Date End Date Rashaad Tran III, MD [address] [place] [address], [place] [address] PCP - General Family Medicine 06/04/15 documented as of this encounter
--- OUTSIDE RECORDS SUMMARY | 2023-07-31 11:43 | External Medical Summary ---
Author Name Unknown Address Unknown Organization K01:LABORATORY [facility] [place] - [address] [place] [address] Laboratory Report Ordering Provider Test Date Status RAVIN METZGER 06/01/2023 12:19:35 Final Observation Date Value Abnormality Reference (Units ) Status TSH 06/01/2023 12:19:35 0.03 Below low normal 0.2 7-4.20 (uIU/mL) Final Performing Location LABORATORY C - [address] [place] [address]
--- OUTSIDE RECORDS SUMMARY | 2023-07-31 11:43 | External Medical Summary | Summary of Care ---
Author Name Unknown Organization [facility] Address [address] [place] [address] Phone [phone] Care Team Providers Care Under Cutter Name Role Phone Renae MEDINA MD, John E Primary Care Provider [phone] Reason for Visit * Reason Comments eRx-Medication Refill Encounter Details Date Type Department Care Team Description 04/26/2023 Refill Family Practice [facility] [address] [facility] [place] [address] Rashaad Tran III, MD [address] [facility] [place] [address] Allergies Active Allergy Reactions Severity Noted Date Comments Clarithromycin 05/09/2010 Confusion, "buzzing sound in head" documented as of this encounter (statuses as of 04/27/2023) Medications Medication Sig Dispensed Refills Start Date [...] 100 Cap 3 8 Active MEDICAL INSTRUCTIONS Shelter-for monitoring of med. compliance, filling of med. [...] MEAL 90 Tablet 3 2 Active Accu-Chek Brianna Plus In Vitro Strip [...] OR CHEW 90 Capsule 1 3 Active Clopidogrel Bisulfate 75 MG Oral [...] PER WEEK 2 mL 1 3 Active Levothyroxine Sodium 75 MCG Oral Tablet (Levoxyl) TAKE 1 TAB BY MOUTH DAILY 1ST THING IN THE MORNING(AT LEAST 30 MIN PRIOR TO BREAKFAST OR OTHER MEDS) 90 Tablet 0 3 Active Trulicity 0.75 MG/0.5ML Subcutaneous Solution Pen-injector (Dulaglutide) Inject 0.75 mg under the skin once a week. 2 mL 6 3 04/27/20 23 Discontinued Levothyroxine Sodium 75 MCG Oral Tablet (Levoxyl) TAKE 1 TAB BY MOUTH DAILY 1ST THING IN THE MORNING(AT LEAST 30 MIN PRIOR TO BREAKFAST OR OTHER MEDS) 90 Tablet 0 3 04/27/20 23 Discontinued documented as of this encounter (statuses as of 04/27/2023) Active Problems Problem Noted Date Subclavian arterial [...] as of this encounter (statuses as of 04/27/2023) Resolved Problems Problem Noted Date Resolved Date [...] as of this encounter (statuses as of 04/27/2023) Immunizations Name Administration Dates Next Due COVID-19 mRNA, LNP-s, No Pre serve, 2-Dose Series ([employer] 07/30/2021,11/11/2020,10/21/2020 DT - Diptheria/Tetanus (PEDS) 06/04/2015 Pneumococcal [...] encounter Miscellaneous Notes * Telephone Encounter - Patrick Akbar, [facility] - 04/27/2023 12:02 PM EDTSigned Prescriptions: Disp Refills Trulicity 0.75 MG/0.5ML Subcutaneous Solut*2 mL 1 Sig: INJECT 0.75MG UNDER THE SKIN ONE TIME PER WEEKAuthorizing Provider: RASHAAD TRAN III User: PATRICK OTT Levothyroxine Sodium 75 MCG Oral Tablet (L*90 Tab*0 Sig: TAKE 1 TAB BY MOUTH DAILY 1ST THING IN THE MORNING(AT LEAST 30 MIN PRIOR TO BREAKFAST OR OTHER MEDS)Authorizing Provider: RASHAAD GOMES User: PATRICK OTT * Telephone Encounter - Patrick Akbar [facility] - 04/27/2023 12:00 PM EDT Approved refill to hold until office visit on 05/15/23. * Telephone Encounter - Patrick Akbar [facility] - 04/27/2023 12:00 PM EDT Pending Prescriptions: Disp Refills Trulicity 0.75 MG/0.5ML Subcutaneous Solu* 6 Sig: INJECT 0.75MG UNDER THE SKIN ONE TIME PER WEEK Levothyroxine Sodium 75 MCG Oral Tablet (*90 Tab*0 Sig: TAKE 1 TAB BY MOUTH DAILY 1ST THING IN THE MORNING(AT LEAST 30 MIN PRIOR TO BREAKFAST OR OTHER MEDS) Last Visit: 02/12/2023 (in office), Visit date not found (telemedicine) Next Visit: 05/15/2023 If no future appointments scheduled, and last appointment is greater than a year ago, please schedule patient for a follow-up appointment Last date the medication was ordered: 10/27/22, 03/30/23 Pharmacy: [id number] [address] [place] [address] Is this request for a controlled substance? No Urine Drug Screen: Results for orders placed or performed in visit on 04/25/16 TOX SCREEN, URINE, W/ CONFIRMATION Result Value Amphetamine NEGATIVE Barbiturates NEGATIVE Benzodiazepines NEGATIVE Cannabinoids POSITIVE (A) Cocaine Metabolite NEGATIVE Morphine / Codeine NEGATIVE METHADONE METABOLITE NEGATIVE OXYCODONE NEGATIVE TOX COMMENT THE ABOVE SCREENING RESULTS ARE PRESUMPTIVE AND CAN ONLY BE USED FOR MEDICAL PURPOSES. POSITIVE RESULTS REFLEX TO CONFIRMATORY TESTING. Cutoff Concentration *Note: Due to a large number of results and/or encounters for the requested time period, some results have not been displayed. A complete set of results can be found in Results Review. Patient Phone Numbers Labs: Lab Results Component Value Date/Time CREAT 0.9 02/20/2023 11:18 AM CREAT 0.9 05/26/2020 01:26 PM POTASSIUM 4.5 02/20/2023 11:18 AM POTASSIUM 5.1 10/21/2019 12:22 PM TSH 0.01 (L) 02/20/2023 11:18 AM TSH 0.01 (L) 04/20/2020 12:41 PM LDLCALC 42 02/20/2023 11:18 AM LDLCALC 57 10/21/2019 12:22 PM LDLDIRECT NOT APPLICABLE 10/21/2019 12:22 PM LDLDIRECT 89 09/21/2017 04:19 PM ALT 30 02/20/2023 11:18 AM ALT 16 10/21/2019 12:22 PM HGBA1C 5.3 02/20/2023 11:18 AM HGBA1C 6.5 (H) 04/20/2020 12:41 PM documented in this encounter Plan of Treatment Upcoming Encounters Date Type Specialty Care Team Description 05/15/2023 Office Visit Family Medicine Jo Flores PA-C [address] [facility] [place] [address] 07/10/2023 Imaging Radiology 09/20/2023 Office Visit Rheumatology Bert Osborne MD [address] [facility] [place] [address] Scheduled Procedures Name Priority Associated Diagnoses Date/Ti me COLONOSCOPY FLEXIBLE PROXIMAL DIAGNOSTIC Recall Screen for colon cancer Health Maintenance Due Date Last Done Comments Alpha-1 Antitrypsin 1973 Cologuard 2000 Sigmoidoscopy 2000 Fecal Occult Blood Test 05/19/2020 05/19/20, 09/11/2016, [...] 11/08/2010 LUNG CANCER SCREENING - USE SMARTSET 06152 Completed 11/16/2022, 11/10/2021, 10/20/2020, Additional history exists [...] and were consensually agreed upon. Care Teams Under Cutter Relationship Specialty Start Date End Date Rashaad Tran III, MD [address] [place] [address], [place] [address] PCP - General Family Medicine 06/04/15 documented as of this encounter
--- OUTSIDE RECORDS SUMMARY | 2023-07-31 11:43 | External Medical Summary ---
Author Name Unknown Address Unknown Organization K01:LAB[facility]ATORY [facility] - [address] [place] [address] Laboratory Report Ordering Provider Test Date Status RAVIN METZGER 06/01/2023 12:19:35 Final Observation Date Value Abnormality Reference (Units ) Status T4, Free 06/01/2023 12:19:35 1.2 0.9-1.7 (n g/dL) Final Performing Location LAB[facility]ATORY [facility] - [address] [place] [address]
--- OUTSIDE RECORDS SUMMARY | 2023-07-31 11:43 | External Medical Summary | Summary of Care ---
Author Name Unknown Organization [facility] Address [address] [place] [address] Phone [phone] Care Team Providers Care Fish Housekeeper Name Role Phone Renae MEDINA MD, John E Primary Care Provider [phone] Reason for Visit * Reason Comments eRx-Medication Refill Encounter Details Date Type Department Care Team Description 03/29/2023 Refill Family Practice [facility] [address] [facility] [address] Rashaad Tran III, MD [address] [facility] [address] Hypothyroidism, unspecified type* Allergies Active Allergy Reactions Severity Noted Date Comments Clarithromycin 05/09/2010 Confusion, "buzzing sound in head" documented as of this encounter (statuses as of 03/30/2023) Medications Medication Sig Dispensed Refills Start Date [...] 100 Cap 3 8 Active MEDICAL INSTRUCTIONS Jail-for monitoring of med. compliance, filling of med. [...] a day. 100 Each 3 3 Active Mirtazapine 30 MG Oral Tablet (Remeron) TAKE 1 TABLET BY MOUTH EVERYDAY AT BEDTIME 90 Tablet 1 3 Active Losartan Potassium 25 MG Oral Tablet (Cozaar)Indicati ons:Systemic sclerosis (HCC) TAKE 1/2 TABLET BY MOUTH EVERY DAY 45 Tablet 1 3 Active traZODone HCl 50 MG Oral Tablet (Desyrel) TAKE 1 TABLET BY MOUTH EVERY DAY AT BEDTIME NEEDED 90 Tablet 1 3 Active Venlafaxine HCl ER [...] OTHER MEDS) 90 Tablet 0 3 Active Levothyroxine Sodium 75 MCG Oral Tablet (Levoxyl) Take 1 Tablet by mouth daily first thing in the morning. (at least 30 min prior to breakfast or other meds) 90 Tablet 1 3 03/30/20 23 Discontinued documented as of this encounter (statuses as of 03/30/2023) Active Problems Problem Noted Date Subclavian arterial [...] as of this encounter (statuses as of 03/30/2023) Resolved Problems Problem Noted Date Resolved Date [...] as of this encounter (statuses as of 03/30/2023) Immunizations Name Administration Dates Next Due COVID-19 mRNA, LNP-s, No Pre serve, 2-Dose Series ([employer]) 07/30/2021,11/11/2020,10/21/2020 DT - Diptheria/Tetanus (PEDS) 06/04/2015 Pneumococcal Conjugate Vacc, 13 Valent (Prevnar) 04/26/2020 Pneumococcal Polysaccharide PPV23 (Pneumovax) 10/19/2021,11/08/2010 Season Influenza, Quad, PF, Adjuvanted, 65+ Yrs, IM (FLUAD) 04/26/2020 Seasonal Influenza Virus Vac cine, Unspecified Formulation 04/03/2019,04/04/2018,03/29/2017,03/22,05/17/2015,04/08/2014,05/09/2011 ,06/06/2010,06/12/2006 Seasonal Influenza, PF, 6 mo ns & Above, IM , (Flulaval) 04/03/2019,04/04/2018 Seasonal Influenza, Quadriva lent Hd (Fluzone [...] encounter Miscellaneous Notes * Telephone Encounter - Rashaad Tran III, MD - 03/30/2023 12:43 PM EDTSigned Prescriptions: Disp Refills Levothyroxine Sodium 75 MCG Oral Tablet (L*90 Tab*0 Sig: TAKE 1 TAB BY MOUTH DAILY 1ST THING IN THE MORNING(AT LEAST 30 MIN PRIOR TO BREAKFAST OR OTHER MEDS)Authorizing Provider: RASHAAD TRAN III * Telephone Encounter - Shaniqua Barajas [facility] - 03/30/2023 11:36 AM EDTPending Prescriptions: Disp Refills Levothyroxine Sodium 75 MCG Oral Tablet (L*90 Tab*0 Sig: TAKE 1 TAB BY MOUTH DAILY 1ST THING IN THE MORNING(AT LEAST 30 MIN PRIOR TO BREAKFAST OR OTHER MEDS) * Telephone Encounter - Shaniqua Barajas [facility] - 03/30/2023 11:27 AM EDT Unable to authorize medication refills for pended medication(s) at this time. Part of the protocol criteria used for refill authorization was not satisfied. Patient TSH is below protocol parameters. Please approve if appropriate. TSH Results: Lab Results Component Value Date/Time TSH - [facility] 0.01 (L) 02/20/2023 11:18 AM TSH - [facility] 0.02 (L) 12/14/2022 11:23 AM TSH - [facility] <0.01 (L) 10/13/2022 10:43 AM T4 Results: Lab Results Component Value Date/Time T4, FREE - [facility] 1.4 02/20/2023 11:18 AM T4, FREE - [facility] 1.3 12/14/2022 11:23 AM T4, FREE - [facility] 1.4 10/13/2022 10:43 AM Per provider message on 03/07 pt message: "Your labs show that your thyroid is very overactive. Are you taking your thyroid medication? If so, how are you taking it (when, how often, how much, etc)?" Message was unread by pt. PC to pt to review above message from provider. Pt states she takes every day on an empty stomach first thing in the morning; however, pt states she is taking with all her other medications and supplements. Advised pt she should take separate from other medications and supplements by a few hours. Pt gave verbal understand. Pt can recheck TSH at upcoming OV on 05/15/2023. Lab ordered. Please approve if appropriate. Thank you, Shaniqua Barajas, PharmD Clinical Pharmacist [facility] ([facility]) (formerly Telepharmacy) [phone] 03/30/2023, 11:34 AM documented in this encounter Plan of Treatment Upcoming Encounters Date Type Specialty Care Team Description 04/12/2023 Telemedicine Endocrinology Tiffany Iniguez PA-C [address] [place] [address] 05/15/2023 Office Visit Family Medicine Jo Flores PA-C [address] [place] [address] 07/10/2023 Imaging Radiology 09/20/2023 Office Visit Rheumatology Bert Osborne MD [address] [place] [address] Scheduled Orders Name Type Priority Associated Diagnoses Orde r Schedule TSH WITH FREE T4 IF INDICATED Lab Routine Hypothyroidism, unspecified type Expected: 04/29/2023 (Approximate), Expires: 03/30/2024 Scheduled Procedures Name Priority Associated Diagnoses Date/Ti me COLONOSCOPY FLEXIBLE PROXIMAL DIAGNOSTIC Recall Screen for colon cancer Health Maintenance Due Date Last Done Comments Alpha-1 Antitrypsin 1973 Cologuard 2000 Sigmoidoscopy 2000 Fecal Occult Blood Test 05/19/2020 05/19/20, 09/11/2016, 09/17/2008, Additional history exists COVID-19 Vaccine (4 - Pfizer series) 09/24/2021 07/30/2021, 11/11/2020, 10/21/2020 Influenza Vaccine (FLU shot) [...] 11/08/2010 LUNG CANCER SCREENING - USE SMARTSET 05567 Completed 11/16/2022, 11/10/2021, 10/20/2020, Additional history exists [...] as of this encounter Visit Diagnoses Diagnosis Hypothyroidism, unspecified type- Primary documented in this encounter Advance Directives Latest Code Status on File Code Status Date Activated Date Inactivated Comments Full Code 07/23/2018 11:45 AM 07/24/2018 4:27 PM This o rder reflects the patients wishes and were consensually agreed upon. Care Teams Fish Housekeeper Relationship Specialty Start Date End Date Rashaad Tran III, MD [address] [place] [address] PCP - General Family Medicine 06/04/15 documented as of this encounter
--- OUTSIDE RECORDS SUMMARY | 2023-07-31 11:43 | External Medical Summary ---
Author Name Unknown Address Unknown Organization K01:LABORATORY [facility] [place] - [address] [facility] [address] Laboratory Report Ordering Provider Test Date Status CHELE CEE 06/01/2023 12:19:35 Final Observation Date Value Abnormality Reference (Units ) Status Ferritin 06/01/2023 12:19:35 77 13-150 (ng /mL) Final Postmenopausal women have hi gher ferritin levels than pre-menopausal women. The above reference interval is based on pre-menopausal women. Performing Location LABORATORY [facility] - [address] [place] [address]
--- OUTSIDE RECORDS SUMMARY | 2023-07-31 11:43 | External Medical Summary | Summary of Care ---
Author Name Unknown Organization [facility] Address [address] [place] [address] Phone [phone] Care Team Providers Care Director Long Term Care Name Role Phone Renae MEDINA MD, Rashaad Singh Primary Care Provider [phone] Reason for Visit * Reason Comments eRx-Medication Refill Encounter Details Date Type Department Care Team (Late st Contact Info) Description 05/23/2023 Refill Family Practice [facility] [address] [facility] [place] [address] Rashaad Tran III, MD [address] [facility] [place] [address] Allergies Active Allergy Reactions Criticality Noted Date Comments Clarithromycin 05/09/2010 Confusion, "buzzing sound in head" documented as of this encounter (statuses as of 05/23/2023) Medications Medication Sig Dispensed Refills Start Date [...] 100 Cap 3 8 Active MEDICAL INSTRUCTIONS Group Home-for monitoring [...] DAY 48 mL 3 2 Active Accu-Chek Brianna Plus In [...] OTHER MEDS) 90 Tablet 0 3 Active Venlafaxine HCl ER 75 MG Oral Capsule Extended Release 24 Hour (Effexor XR) TAKE 1 CAPSULE BY MOUTH EVERY DAY DO NOT CUT, CRUSH, OR CHEW 90 Capsule 2 3 Active Pantoprazole Sodium 40 MG Oral Tablet Delayed Release (Protonix) TAKE 1 TABLET BY MOUTH EVERY DAY 30 MINUTES BEFORE 1ST MEAL 90 Tablet 3 3 Active Pantoprazole Sodium 40 MG Oral Tablet Delayed Release (Protonix) TAKE 1 TABLET BY MOUTH EVERY DAY 30 MINUTES BEFORE 1ST MEAL 90 Tablet 3 2 05/23/20 23 Discontinued documented as of this encounter (statuses as of 05/23/2023) Active Problems Problem Noted Date Diagnosed Date [...] as of this encounter (statuses as of 05/23/2023) Resolved Problems Problem Noted Date Diagnosed Date [...] as of this encounter (statuses as of 05/23/2023) Immunizations Name Administration Dates Next Due COVID-19 mRNA, LNP-s, No Pre serve, 2-Dose Series ([employer]) 07/30/2021,11/11/2020,10/21/2020 DT - Diptheria/Tetanus (PEDS) 06/04/2015 Pneumococcal [...] encounter Miscellaneous Notes * Telephone Encounter - Hardik Middleton, [facility] - 05/23/2023 4:00 PM EST Signed Prescriptions: Disp Refills Pantoprazole Sodium 40 MG Oral Tablet Brigida*90 Tab*3 Sig: TAKE 1 TABLET BY MOUTH EVERY DAY 30 MINUTES BEFORE 1ST MEALAuthorizing Provider: RASHAAD TRAN III User: HARDIK MIDDLETON documented in this encounter Plan of Treatment Upcoming Encounters Date Type Department Care Team (Late st Contact Info) Description 06/01/2023 11:40 AM EST Office Visit Family [facility] [address] [facility] [place] [address] Jo Flores PA-C [address] [place] [address] 07/10/2023 11:45 AM EST Imaging Radiology [address], [place] [address] [facility] [place] [address] 10/29/2023 11:40 AM EDT Office Visit Rheumatology [place] [address] [address] [place] [address] Bert Osborne MD [email or web address] [place] [address] Scheduled Procedures Name Priority Associated Diagnoses Date/Ti [...] 11/08/2010 LUNG CANCER SCREENING - USE SMARTSET 88425 Completed 11/16/2022, 11/10/2021, 10/20/2020, Additional history exists [...] and were consensually agreed upon. Care Teams Director Long Term Care Relationship Specialty Start Date End Date Rashaad Tran III, MD [address] [place] [address] PCP - General Family Medicine 06/04/15 documented as of this encounter
--- OUTSIDE RECORDS SUMMARY | 2023-07-31 11:43 | External Medical Summary | Summary of Care ---
Author Name Unknown Organization [facility] Address [address] [place] [address] Phone [phone] Care Team Providers Care Salesperson Flying Squad Name Role Phone Renae MEDINA MD, Rashaad Singh Primary Care Provider [phone] Reason for Visit * Reason Comments eRx-Medication Refill Encounter Details Date Type Department Care Team (Late st Contact Info) Description 05/17/2023 Refill Family Practice [facility] [address] [place] [address] Rashaad Tran III, MD [address] [place] [address] Allergies Active Allergy Reactions Criticality Noted Date Comments Clarithromycin 05/09/2010 Confusion, "buzzing sound in head" documented as of this encounter (statuses as of 05/17/2023) Medications Medication Sig Dispensed Refills Start Date [...] 100 Cap 3 8 Active MEDICAL INSTRUCTIONS [facility]-for monitoring of med. compliance, filling of med. [...] OR CHEW 90 Capsule 2 3 Active Venlafaxine HCl ER 75 MG Oral Capsule Extended Release 24 Hour (Effexor XR) TAKE 1 CAPSULE BY MOUTH DAILY. DO NOT CUT, CRUSH, OR CHEW 90 Capsule 1 3 05/17/20 23 Discontinued documented as of this encounter (statuses as of 05/17/2023) Active Problems Problem Noted Date Diagnosed Date [...] as of this encounter (statuses as of 05/17/2023) Resolved Problems Problem Noted Date Diagnosed Date [...] as of this encounter (statuses as of 05/17/2023) Immunizations Name Administration Dates Next Due COVID-19 mRNA, LNP-s, No Pre serve, 2-Dose Series ([employer]) 07/30/2021,11/11/2020,10/21/2020 DT - Diptheria/Tetanus (PEDS) 06/04/2015 Pneumococcal [...] encounter Miscellaneous Notes * Telephone Encounter - Janneth Harris [facility] - 05/17/2023 2:37 PM EDTSigned Prescriptions: Disp Refills Venlafaxine HCl ER 75 MG Oral Capsule Exte*90 Cap*2 Sig: TAKE 1 CAPSULE BY MOUTH EVERY DAY DO NOT CUT, CRUSH, OR CHEWAuthorizing Provider: RASHAAD TRAN III EOrderingUser: JANNETH HARRIS documented in this encounter Plan of Treatment Upcoming Encounters Date Type Department Care Team (Late st Contact Info) Description 05/21/2023 12:20 PM EST Office Visit Family Practice [facility] [address] [facility] [place] [address] Jo Flores PA-C [address] [facility] [place] [address] 07/10/2023 11:45 AM EST Imaging Radiology [address] [facility] [place] [address] 10/29/2023 11:40 AM EDT Office Visit Rheumatology [place] [address] [employer] [place] [address] Bert Osborne MD [address] [place] [address] Scheduled Procedures Name Priority Associated Diagnoses Date/Ti [...] 11/08/2010 LUNG CANCER SCREENING - USE SMARTSET 09104 Completed 11/16/2022, 11/10/2021, 10/20/2020, Additional history exists [...] and were consensually agreed upon. Care Teams Salesperson Flying Squad Relationship Specialty Start Date End Date Rashaad Tran III, MD [address] [place] [address] PCP - General Family Medicine 06/04/15 documented as of this encounter
--- OUTSIDE RECORDS SUMMARY | 2023-07-31 11:43 | External Medical Summary | Summary of Care ---
Author Name Unknown Organization [facility] Address [address] [place] [address] Phone [phone] Care Team Providers Care Small Animal Caretaker Name Role Phone Renae MEDINA MD, Oseas Singh Primary Care Provider [phone] Reason for Visit * Reason Comments Outpatient Testing Encounter Details Date Type Department Care Team (Late st Contact Info) Description 06/01/2023 12:20 PM EST Laboratory Laboratory Scenery [facility] [address] [place] [id number] [place], Lab Scenery [address] [place] [address] Hypothyroidism, unspecified type; Encounter for long-term (current) use of medications; Acquired hypothyroidism; Obstructive lung disease (HCC) Allergies Active Allergy Reactions Criticality Noted Date [...] 100 Cap 3 01/25/2018 Active MEDICAL INSTRUCTIONS Half-Way-for monitoring of med. compliance, filling of med. [...] before bedtime. 90 Capsule 5 06/01/2023 Active documented as of this encounter (statuses [...] mRNA, LNP-s, No Pre serve, 2-Dose Series ([employer]) 07/30/2021,11/11/2020,10/21/2020 DT - Diptheria/Tetanus (PEDS) 06/04/2015 Pneumococcal [...] No 07/23/2018 documented as of this encounter Plan of Treatment Upcoming Encounters Date Type Department Care Team (Late st Contact Info) Description 07/10/2023 11:45 AM EST Imaging Radiology [facility] [address] [facility] [place] [address] 09/03/2023 10:40 AM EST Office Visit Family Practice [facility] [address] [place] [address] Jo Flores PA-C [address] [place] [address] 10/29/2023 11:40 AM EDT Office Visit Rheumatology [place] [address] [facility] [place] [address] Bert Osborne MD [address] [place] [address] Pending Results Name Type Priority Associated Diagnoses Date /Time TSH WITH FREE T4 IF INDICATED Lab Routine Hypothyroidism, unspecified type 06/01/2023 12:19 PM EST FERRITIN Lab Routine Encounter for long-term (current) use of medications 06/01/2023 12:19 PM EST IRON SCREEN, INCLUDING TIBC Lab Routine Encounter for long-term (current) use of medications 06/01/2023 12:19 PM EST ALPHA 1 ANTITRYPSIN (AAT) QN AND PHENOTYPE Lab Routine Obstructive lung disease (HCC) 06/01/2023 12:19 PM EST Scheduled Procedures Name Priority Associated Diagnoses Date/Ti [...] FOR COPD 02/13/2024 02/12/2023 GFR 02/21/2024 02/20/2023, /07/2022, 10/10/2021, Additional history exists TSH 02/21/2024 02/20/2023, [...] 11/08/2010 LUNG CANCER SCREENING - USE SMARTSET [id number] Completed 11/16/2022, 11/10/2021, 10/20/2020, Additional history exists [...] this encounter Visit Diagnoses Diagnosis Hypothyroidism, unspecified type Encounter for long-term (current) use of medications Encounter for long-term (current) use of other medications Acquired hypothyroidism Unspecified hypothyroidism Obstructive lung disease (HCC) Chronic airway obstruction, not elsewhere classified documented in this encounter Advance Directives Latest Code Status on File Code Status Date Activated Date Inactivated Comments Full Code 07/23/2018 11:45 AM 07/24/2018 4:27 PM This o rder reflects the patients wishes and were consensually agreed upon. Care Teams Small Animal Caretaker Relationship Specialty Start Date End Date Oseas Macdonald III, MD [address] [facility] [place] [address] PCP - General Family Medicine 06/04/15 documented as of this encounter
--- OUTSIDE RECORDS SUMMARY | 2023-07-31 11:43 | External Medical Summary | Summary of Care ---
Author Name Unknown Organization [facility] Address [address] [place] [address] Phone [phone] Care Team Providers Care Heavy Duty Mechanic Farm Equipment Name Role Phone Renae MEDINA MD, John E Primary Care Provider [phone] Reason for Visit * Reason Comments eRx-Medication Refill Encounter Details Date Type Department Care Team Description 04/24/2023 Refill Family Practice [facility] [address] [place] [address] Rashaad Tran III, MD [address] [place] [address] Encounter for long-term (current) use of medications* Allergies Active Allergy Reactions Severity Noted Date Comments Clarithromycin 05/09/2010 Confusion, "buzzing sound in head" documented as of this encounter (statuses as of 04/25/2023) Medications Medication Sig Dispensed Refills Start Date [...] Glargine Solostar 100 UNIT/ML Subcutaneous Solution Pen-injector (CreateTripsaglar KwikPen) INJECT 24 UNITS SUBCUTANEOUSLY DAILY 45 [...] WITH BREAKFAST 180 Tablet 1 3 Active Ferrous Sulfate 325 (65 Fe) MG Oral Tablet (Feosol) TAKE 2 TABLETS BY MOUTH EVERY DAY WITH BREAKFAST 180 Tablet 0 3 04/25/20 23 Discontinued documented as of this encounter (statuses as of 04/25/2023) Active Problems Problem Noted Date Subclavian arterial [...] as of this encounter (statuses as of 04/25/2023) Resolved Problems Problem Noted Date Resolved Date [...] as of this encounter (statuses as of 04/25/2023) Immunizations Name Administration Dates Next Due COVID-19 [...] encounter Miscellaneous Notes * Telephone Encounter - Rahsaad Tran III, MD - 04/25/2023 11:31 AM EDTSigned Prescriptions: Disp Refills Ferrous Sulfate 325 (65 Fe) MG Oral Tablet*180 Ta*1 Sig: TAKE 2 TABLETS BY MOUTH EVERY DAY WITH BREAKFASTAuthorizing Provider: RASHAAD TRAN III * Telephone Encounter - Shanita Garcia [facility] - 04/25/2023 8:34 AM EDTPending Prescriptions: Disp Refills Ferrous Sulfate 325 (65 Fe) MG Oral Tablet*180 Ta*1 Sig: TAKE 2 TABLETS BY MOUTH EVERY DAY WITH BREAKFAST * Telephone Encounter - Shanita Garcia [facility] - 04/25/2023 8:32 AM EDT Unable to authorize medication refills for pended medication(s) at this time. Part of the protocol criteria used for refill authorization was not satisfied. Patient needs ferritin and iron screen completed in past year. Please approve if appropriate. Thank You, Shanita Garcia [facility] Clinical Pharmacist [facility] ([facility]) (formerly Telepharmacy) [phone] 04/25/2023, 8:33 AM documented in this encounter Plan of Treatment Upcoming Encounters Date Type Specialty Care Team Description 05/15/2023 Office Visit Family Medicine Jo Flores PA-C [address] [facility] [place] [address] 07/10/2023 Imaging Radiology 09/20/2023 Office Visit Rheumatology Bert Osborne MD [address] [facility] [place], [place] [address] Scheduled Orders Name Type Priority Associated Diagnoses Orde r Schedule FERRITIN Lab Routine Encounter for long-term (current) use of medications Expected: 04/25/2023 (Approximate), Expires: 04/25/2024 IRON SCREEN, INCLUDING TIBC Lab Routine Encounter for long-term (current) use of medications Expected: 04/25/2023 (Approximate), Expires: 04/25/2024 Scheduled Procedures Name Priority Associated Diagnoses Date/Ti [...] 11/08/2010 LUNG CANCER SCREENING - USE SMARTSET [id number] Completed 11/16/2022, 11/10/2021, 10/20/2020, Additional history exists [...] as of this encounter Visit Diagnoses Diagnosis Encounter for long-term (current) use of medications- Primary Encounter for long-term (current) use of other medications documented in this encounter Advance Directives Latest Code Status on File Code Status Date Activated Date Inactivated Comments Full Code 07/23/2018 11:45 AM 07/24/2018 4:27 PM This o rder reflects the patients wishes and were consensually agreed upon. Care Teams Heavy Duty Mechanic Farm Equipment Relationship Specialty Start Date End Date Rashaad Tran III, MD [address] [place] [address] PCP - General Family Medicine 06/04/15 documented as of this encounter
--- OUTSIDE RECORDS SUMMARY | 2023-07-31 11:43 | External Medical Summary | Summary of Care ---
Author Name Unknown Organization [facility] Address [address] [place] [address] Phone [phone] Care Team Providers Care Manager Games Name Role Phone Renae MEDINA MD, John E Primary Care Provider [phone] Reason for Visit * Reason Comments eRx-Medication Refill Encounter Details Date Type Department Care Team Description 04/21/2023 Refill Family Practice [facility] [address] [place] [address] Rashaad Tran III, MD [address] [place] [address] Allergies Active Allergy Reactions Severity Noted Date [...] 100 Cap 3 8 Active MEDICAL INSTRUCTIONS Snf-for monitoring of med. compliance, filling of med. [...] Glargine Solostar 100 UNIT/ML Subcutaneous Solution Pen-injector (Muutaglar KwikPen) INJECT 24 UNITS SUBCUTANEOUSLY DAILY 45 [...] mRNA, LNP-s, No Pre serve, 2-Dose Series ([email or web address]) 07/30/2021,11/11/2020,10/21/2020 DT - Diptheria/Tetanus (PEDS) 06/04/2015 Pneumococcal [...] Notes * Telephone Encounter - Preeti Hooks, [facility] - 04/23/2023 7:53 AM EDTSigned [...] Visit Family Medicine Jo Flores PA-C [address] [place] [address] 07/10/2023 Imaging Radiology 09/20/2023 Office Visit Rheumatology Bert Osborne MD [address] [place] [address] Scheduled Procedures Name Priority Associated Diagnoses Date/Ti [...] 11/08/2010 LUNG CANCER SCREENING - USE SMARTSET [id number] Completed 11/16/2022, 11/10/2021, 10/20/2020, Additional history exists [...] and were consensually agreed upon. Care Teams Manager Games Relationship Specialty Start Date End Date Rashaad Tran III, MD [address] [place] [address], [place] [address] PCP - General Family Medicine 06/04/15 documented as of this encounter
--- OUTSIDE RECORDS SUMMARY | 2023-07-31 11:43 | External Medical Summary | Summary of Care ---
Author Name Unknown Organization [facility] Address [address] [place] [address] Phone [phone] Care Team Providers Care Chemistry Intern Name Role Phone Renae MEDINA MD, John E Primary Care Provider [phone] Reason for Visit * Reason Comments eRx-Medication Refill Encounter Details Date Type Department Care Team Description 04/13/2023 Refill Family Practice [facility] [address] [facility] [place] [address] Rashaad Tran III, MD [address] [facility] [place] [address] Systemic sclerosis (HCC) Allergies Active Allergy Reactions Severity Noted Date Comments Clarithromycin 05/09/2010 Confusion, "buzzing sound in head" documented as of this encounter (statuses as of 04/13/2023) Medications Medication Sig Dispensed Refills Start Date [...] 100 Cap 3 8 Active MEDICAL INSTRUCTIONS Retirement-for monitoring of med. compliance, filling of med. [...] AT BEDTIME 90 Tablet 1 3 Active traZODone HCl 50 [...] EVERY DAY 45 Tablet 1 3 Active Losartan Potassium 25 MG Oral Tablet (Cozaar)Indicati ons:Systemic sclerosis (HCC) TAKE 1/2 TABLET BY MOUTH EVERY DAY 45 Tablet 1 3 04/13/20 23 Discontinued documented as of this encounter (statuses as of 04/13/2023) Active Problems Problem Noted Date Subclavian arterial [...] as of this encounter (statuses as of 04/13/2023) Resolved Problems Problem Noted Date Resolved Date [...] as of this encounter (statuses as of 04/13/2023) Immunizations Name Administration Dates Next Due COVID-19 mRNA, LNP-s, No Pre serve, 2-Dose Series ([employer]) 07/30/2021,11/11/2020,10/21/2020 DT - Diptheria/Tetanus (PEDS) 06/04/2015 Pneumococcal [...] encounter Miscellaneous Notes * Telephone Encounter - Marah Astorga RPh - 04/13/2023 12:22 PM EDTSigned Prescriptions: Disp Refills Losartan Potassium 25 MG Oral Tablet (Coza*45 Tab*1 Sig: TAKE 1/2 TABLET BY MOUTH EVERY DAYAuthorizing Provider: RASHAAD TRAN III User: MARAH ASTORGA---- documented in this encounter Plan of Treatment Upcoming Encounters Date Type Specialty Care Team Description 05/15/2023 Office Visit Family Medicine Jo Flores PA-C [address] [facility] [place] [address] 07/10/2023 Imaging Radiology 09/20/2023 Office Visit Rheumatology Bert Osborne MD [address] [facility] [place] [address] Scheduled Procedures Name Priority Associated Diagnoses Date/Ti [...] 10/10/2021, Additional history exists TSH 02/21/2024 02/20/2023, 07/2022, 10/13/2022, Additional history exists DTaP,Tdap,and Td Vaccines (3 - Td or Tdap) 06/04/2025 06/04/2015, 06/04/2015 DXA Scan 11/10/2027 11/09/2020, 0 03/2010, 03/28/2007, Additional history exists Colonoscopy 10/05/2030 10/05/2020, 09/14, 05/26/2019, Additional history exists Colorectal Cancer Screening 10/05/2030 Zoster Vaccines Completed 07/25/2018, 05/10/2018 Pap Smear Discontinued 07/03/2019, 0 10/2015, 05/29/2012, Additional history exists COLONOSCOPY-ANNUAL AGES 18-100 Discontinued 10/05/2020, 10/05/2020, 05/26/2019, Additional history exists Pneumococcal Vaccine: 65+ Years Completed 10/19/2021, 04/26/2020, 11/08/2010 LUNG CANCER SCREENING - USE SMARTSET [id number] Completed 11/16/2022, 11/10/2021, 10/20/2020, Additional history exists [...] as of this encounter Visit Diagnoses Diagnosis Systemic sclerosis (HCC) Systemic sclerosis documented in this encounter Advance Directives Latest Code Status on File Code Status Date Activated Date Inactivated Comments Full Code 07/23/2018 11:45 AM 07/24/2018 4:27 PM This o rder reflects the patients wishes and were consensually agreed upon. Care Teams Chemistry Intern Relationship Specialty Start Date End Date Rashaad Tran III, MD [address] [place] [address] PCP - General Family Medicine 06/04/15 documented as of this encounter
--- OUTSIDE RECORDS SUMMARY | 2023-07-31 11:43 | External Medical Summary ---
Author Name Unknown Address Unknown Organization [id number]:LABORATORY [facility] - [address] [place] [address] Laboratory Report Ordering Provider Test Date Status CHELE CEE 06/01/2023 12:19:35 Final Observation Date Value Abnormality Reference (Units ) Status Iron 06/01/2023 12:19:35 114 33-151 (ug /dL) Final Iron-binding capacity 06/01/2023 12:19:35 303 250-425 (ug/dL) Final Transferrin Sat % 06/01/2023 12:19:35 38 15 -55 (%) Final Performing Location LABORATORY [facility] - [address] [place] [address]
--- OUTSIDE RECORDS SUMMARY | 2023-07-31 11:43 | External Medical Summary | Summary of Care ---
Author Name Unknown Organization [facility] Address [address] [place] [address] Phone [phone] Care Team Providers Care Airport Ramp Attendant Name Role Phone Renae MEDINA MD, Oseas Singh Primary Care Provider [phone] Reason for Visit * Reason Comments Re-Check Encounter Details Date Type Department Care Team Description 02/12/2023 Office Visit Family [facility] [address] [place] [address] [facility] [place] [address] Jo Flores PA-C [address] [facility] [place] [address] DM type 2 nursing care encounter (HCC)*; Type 2 diabetes mellitus with hemoglobin A1c goal of less than 8.0% (HCC); Hypothyroidism, unspecified type; Diabetes mellitus with peripheral angiopathy (HCC); Pure hypercholesterolemia; Other emphysema (HCC); Obstructive lung disease (HCC); CREST syndrome (HCC); Carotid stenosis, non-symptomatic, bilateral; Subclavian arterial stenosis (HCC); Vitamin D deficiency; Esophagitis; Undifferentiated connective tissue disease (HCC); Dementia without behavioral disturbance (HCC); Scleroderma, limited ([facility]); Systemic sclerosis (HCC); Body mass index 27.0-27.9, adult Allergies Active Allergy Reactions Severity Noted Date Comments Clarithromycin 05/09/2010 Confusion, "buzzing sound in head" documented as of this encounter (statuses as of 04/08/2023) Medications Medication Sig Dispensed Refills Start Date End Date Status aspirin 81 MG chewable tablet Take 1 Tablet by mouth in the morning. With food.. 100 Tab 5 07/19/19 16 Active Cholecalciferol (VITAMIN D3) 1000 units CAPS [...] mouth daily as needed. 100 Cap 3 01/26/20 18 Active MEDICAL INSTRUCTIONS Half-Way-for monitoring of med. compliance, filling of med. dispenser, and vital signs. 2 hrs for week one, 1 hr weekly on going. 1 Each 1 08/15/19 19 Active Lancet Devices (ACCU-CHEK SOFTCLIX LANCET DEV) MISCIndications: DM type 2, not at goal (HCC) Twice daily DX: E11.9 1 Each 11 02/12/20 19 Active Blood Glucose Monitoring Suppl (ACCU-CHEK BRIANNA PLUS) w/Device KIT Test blood sugar 3 times daily as directed. E11.9 1 Kit 0 06/24/20 19 Active Blood Glucose Monitoring Suppl (ACCU-CHEK BRIANNA) JORGE Use up to 4 times daily 1 Device 0 07/03/20 19 Active Bisacodyl 5 MG Oral Tablet Delayed Release (DULCOLAX) Take 1 Tablet by mouth as needed. 0 Active Accu-Chek Softclix Lancets TEST BLOOD SUGAR 3 TIMES DAILY. DX:E11.9 300 Each 3 12/26/19 21 Active Fluticasone Propionate 50 MCG/ACT Nasal Suspension (Flonase) ADMINISTER 2 SPRAYS INTO EACH NOSTRIL EVERY DAY 48 mL 3 04/21/20 22 Active Pantoprazole Sodium 40 MG Oral Tablet Delayed Release (Protonix) TAKE 1 TABLET BY MOUTH EVERY DAY 30 MINUTES BEFORE 1ST MEAL 90 Tablet 3 06/07/20 22 Active Accu-Chek Brianna Plus In Vitro Strip (Glucose Blood)Indication s:Diabetes mellitus with peripheral angiopathy (HCC) USE DIRECTED 3 TIMES A DAY. DX E11.9 300 Strip 3 08/04/19 23 Active OneTouch Verio w/Device Kit Use up to 4 times a day E11.9 1 Kit 0 08/15/19 23 Active OneTouch Verio In Vitro Strip (Glucose Blood) Use as directed 3 times a day E11.9 100 Strip 08/15/19 Active OneTouch UltraSoft Lancets Use as directed three times a day before meals. Use as directed 3 times a day. 100 Each 08/15/19 Active Mirtazapine 30 MG Oral Tablet (Remeron) TAKE 1 TABLET BY MOUTH EVERYDAY AT BEDTIME 90 Tablet 1 08/16/19 Active Losartan Potassium 25 MG Oral Tablet (Cozaar)Indicati ons:Systemic sclerosis (HCC) TAKE 1/2 TABLET BY MOUTH EVERY DAY 45 Tablet 08/16/19 Active traZODone HCl 50 MG Oral Tablet (Desyrel) TAKE 1 TABLET BY MOUTH EVERY DAY AT BEDTIME NEEDED 90 Tablet 08/16/19 Active Venlafaxine HCl ER 75 MG Oral Capsule Extended Release 24 Hour (Effexor XR) TAKE 1 CAPSULE BY MOUTH DAILY. DO NOT CUT, CRUSH, OR CHEW 90 Capsule 09/05/19 Active Trulicity 0.75 MG/0.5ML Subcutaneous Solution Pen-injector (Dulaglutide) Inject 0.75 mg under the skin once a week. 2 mL 10/28/19 23 Active Clopidogrel Bisulfate 75 MG Oral Tablet (pLAVix) TAKE 1 TABLET BY MOUTH EVERY DAY 90 Tablet 11/01/19 Active Atorvastatin Calcium 80 MG Oral Tablet (Lipitor) TAKE 1 TABLET BY MOUTH EVERY DAY 90 Tablet 11/01/19 Active Insulin Glargine Solostar 100 UNIT/ML Subcutaneous Solution Pen-injector (Basaglar KwikPen) INJECT 24 UNITS SUBCUTANEOUSLY DAILY 45 mL 12/23/19 Active BD Pen Needle Mini U/F 31G X 5 MM (Insulin Pen Needle) USE ONCE DAILY WITH LANTUS SOLOSTAR DIRECTED. DX E11.9 100 Each 01/05/20 23 Active Ferrous Sulfate 325 (65 Fe) MG Oral Tablet (Feosol) TAKE 2 TABLETS BY MOUTH EVERY DAY WITH BREAKFAST 180 Tablet 0 02/10/20 23 Active rOPINIRole HCl 0.5 MG Oral Tablet (Requip)Indicati ons:Restless legs syndrome TAKE 1 TABLET BY MOUTH EVERY DAY FOR RESTLESS LEGS 90 Tablet 02/22/20 22 023 Discontinued Donepezil HCl 10 MG Oral Tablet (Aricept) TAKE 1 TABLET BY MOUTH IN THE EVENING WITH THE LARGEST MEAL. 90 Tablet 02/22/20 22 023 Discontinued metFORMIN HCl ER 500 MG Oral Tablet Extended Release 24 Hour (Glucophage XR) TAKE 2 TABLETS BY MOUTH TWICE A DAY WITH MORNING AND EVENING MEALS 360 Tablet 2 06/05/20 22 023 Discontinued Ezetimibe 10 MG Oral Tablet (Zetia)Indicatio ns:Type 2 diabetes mellitus with hemoglobin A1c goal of less than 8.0% (HCC) TAKE 1 TABLET BY MOUTH EVERY DAY 90 Tablet 0 09/17/19 23 023 Discontinued Gabapentin 300 MG Oral Capsule (Neurontin) Take 1 Capsule by mouth in the morning and 1 Capsule in the evening. 90 Capsule 5 10/06/19 23 023 Discontinued(Re fill) Levothyroxine Sodium 75 MCG Oral Tablet (Levoxyl) Take 1 Tablet by mouth daily first thing in the morning. (at least 30 min prior to breakfast or other meds) 90 Tablet 1 10/16/19 23 023 Discontinued Gabapentin 300 MG Oral Capsule (Neurontin) Take 1 Capsule by mouth in the morning and 1 Capsule at noon and 1 Capsule before bedtime. 90 Capsule 5 02/13/20 23 023 documented as of this encounter (statuses as of 04/08/2023) Active Problems Problem Noted Date Subclavian arterial [...] as of this encounter (statuses as of 04/08/2023) Resolved Problems Problem Noted Date Resolved Date [...] as of this encounter (statuses as of 04/08/2023) Immunizations Name Administration Dates Next Due COVID-19 [...] Sign Reading Time Taken Comments Blood Pressure 134/76 02/12/2023 12:48 PM EDT Pulse 78 02/12/2023 12:48 PM EDT Temperature 36.6 C (97.9 F) 02/12/2023 12:48 PM E DT Respiratory Rate 18 02/12/2023 12:48 PM EDT Oxygen Saturation 97% 02/12/2023 12:48 PM EDT Inhaled Oxygen Concentration - - Weight 67.1 kg (148 lb) 02/12/2023 12:48 PM EDT Height - - Body Mass Index 27.96 02/01/2023 2:13 PM EDT documented in this encounter Functional Status Functional [...] this encounter Patient Instructions * Patient Instructions* Sybil Ruiz, YUNG - 02/12/2023 12:53 PM EDT Diabetes: Keeping Feet Healthy Inspect your feet every day for signs of a problem. Diabetes can damage nerves in your feet and cause neuropathy. This condition makes it hard for you to feel injuries or sore spots. Diabetes can also change blood flow, making it harder for small problems, like a blister, to heal properly. In fact, minor injuries can quickly become serious infections that send you to the hospital. Practice self-care to protect your feet and keep them healthy. Take Special Care Inspect your feet daily for problems such as redness, blisters, cracks, dry skin, or numbness. Use a mirror to see the bottoms of your feet. Or, ask for help. Manage your diabetes. Monitor and control your blood sugar. Take all your medications as prescribed. Avoid walking barefoot, even indoors. Wash your feet with warm water and mild soap. Dry well, especially between toes. Dont treat corns or calluses yourself. Talk to your doctor or security installation technician (a doctor who specializes in foot care) if you need assistance trimming your toenails. Use moisturizing cream or lotion if you have dry skin, but dont use it between toes. Dont use heating pads on your feet. If you have neuropathy, you could get a burn and not feel it. Stop smoking. Smoking restricts blood flow and can make it harder for wounds to heal. Have Regular Checkups Foot problems can develop quickly. So be sure to follow your healthcare teams schedule for regular checkups. During office visits, take off your shoes and socks as soon as you get in the exam room. Ask your healthcare provider to examine your feet for problems. This will make it easier to find and treat small skin irritations before they get worse. Regular checkups can also help keep track of the blood flow and feeling in your feet. If you have neuropathy, you may need to have checkups more often. Wear Proper Footwear Wearing proper footwear is very important. If areas of your feet have been damaged by too much pressure, your healthcare provider may recommend changing your footwear. In some cases, avoiding high heels or tight work boots may be all thats needed. Or, your healthcare provider may recommend special shoes or custom inserts. These help protect your feet and keep existing irritations from getting worse. If you need special footwear, ask your healthcare provider if you qualify for [employer] diabetic shoe program. Make Sure Shoes and Socks Fit Any pair of shoes--new or old--should feel comfortable as soon as you put them on. There shouldnt be any rubbing when you walk. Wear the right shoe for any activity. For instance, a running shoe is designed to keep your feet injury-free while jogging. Buy shoes at the end of the day, when your feet are larger. Make sure they provide support without feeling too loose. Make sure your socks fit, t oo. Wear soft, seamless, well-padded socks for activity. Cotton or microfiber socks are best to help to absorb sweat. To protect your feet, avoid shoes that are open-toed or open-heeled. If you have questions about what kinds of shoes and socks are best, talk to your healthcare team. Get Regular Exercise Regular exercise improves blood flow in your feet. It also increases foot strength and flexibility.Gentle exercises, like walking or riding a stationary bicycle, are best. You can also do special foot exercises. Just be sure to talk with your healthcare provider before starting any exercise program. Also mention if any exercise causes pain, redness, or other signs of foot problems. Note: If you have any kind of break in the skin of your foot or ankle, keep the area clean. Then call your doctor--especially if the area doesnt appear to be healing. [id number] [employer], [address] [place] [address], [place] [address]. All rights reserved. This information is not intended as a substitute for professional medical care. Always follow your healthcare professional's instructions. documented in this encounter Progress Notes * Jo Flores PA-C - 04/08/2023 6:15 PM EDT Subjective Mike Orona is a 68 year old female that presents for Re-Check 68 y/o female presents for routine follow-up. She has no questions or concerns today. Started trulicity for blood sugars. Has been tolerating well without issue. Continues on all other medications as prescribed. Is due to have labs done today. Continues to follow with rheumatology for connective tissue disorder. Follows with vascular surgery for subclavian stenosis, carotid stenosis. On plavix. Routine -labs due and ordered -flu shot recommended when season starts -COVID booster recommended -all other vaccines are up to date She denies fevers, chills, chest pain, SOB, nausea, vomiting, diarrhea. Allergies and medications reviewed. Objective BP 134/76 | Pulse 78 | Temp 36.6 C (97.9 F) (Tympanic) | Resp 18 | Wt 67.1 kg (148 lb) | LMP 10/15/1991 | SpO2 97% | BMI 27.96 kg/m | BSA 1.7 m Body mass index is 27.96 kg/m. BP Readings from Last 3 Encounters: 02/12/23 134/76 02/01/23 140/74 11/29/22 142/70 Wt Readings from Last 3 Encounters: 02/12/23 67.1 kg (148 lb) 02/01/23 67.6 kg (149 lb) 11/29/22 69.7 kg (153 lb 9.6 oz) Physical Exam Vitals and nursing note reviewed. [...] No stridor. No wheezing, rhonchi or rales. Skin: General: Skin is warm and dry. Findings: No rash. Neurological: General: No focal deficit present. Mental Status: She is alert and oriented to person, place, and time. Psychiatric: Mood and Affect: Mood normal. Behavior: Behavior normal. Assessment and plan 1. DM type 2 nursing care encounter ([facility]) - DIABETES FOOT EXAM - HEMOGLOBIN A1C; Future - COMPREHENSIVE METABOLIC PANEL; Future 2. Type 2 diabetes mellitus with hemoglobin A1c goal of less than 8.0% ([facility]) -labs as ordered- fasting. Will reach out with results once they are back - HEMOGLOBIN A1C; Future - COMPREHENSIVE METABOLIC PANEL; Future 3. Hypothyroidism, unspecified type -labs as ordered - TSH WITH FREE T4 IF INDICATED; Future 4. Diabetes mellitus with peripheral angiopathy (HCC) -as above 5. Pure hypercholesterolemia -lipids as ordered (fasting) - LIPID PANEL WITH DIRECT LDL IF TG IS HIGH; Future 6. Other emphysema (HCC) -albuterol PRN 7. Obstructive lung disease (HCC) -albuterol PRN 8. CREST syndrome (HCC) -followup with rheum as scheduled, not on current medication 9. Carotid stenosis, non-symptomatic, bilateral -plavix -continue with vascular follow-up 10. Subclavian arterial stenosis (HCC) -as above 11. Vitamin D deficiency -levels due - 25-HYDROXY VITAMIN D; Future 12. Esophagitis -stable on PPI 13. Undifferentiated connective tissue disease (HCC) -follow-up with rheum 14. Dementia without behavioral disturbance (HCC) -stable 15. Scleroderma, limited (HCC) -follow-up with rheum 16. Systemic sclerosis (HCC) -follow-up with rheum 17. Body mass index 27.0-27.9, adult Follow up Follow-up: Return in about 3 months (around 05/15/2023). | Check-out note: Routine with labs Total time today including reviewing chart before the visit, pertinent labs, imaging reports, face to face time, and documentation time was 35 minutes. The above was discussed and understanding was expressed. Jo Flores PA-C * Sybil Ruiz LPN - 02/12/2023 12:53 PM EDT DM Foot Exam completed today. Provider aware. Sybil Ruiz LPN Socks and Shoes Removed for Annual Diabetic Foot Screening RIGHT FOOT: No Reddened, Cracking, Or Open Areas Noted. RIGHT Dorsalis Pedis Pulse: Palpable RIGHT Posterior Tibial Pulse: Palpable RIGHT Monofilament:Patient reports feeling monofilament pressure on plantar surface of foot LEFT FOOT: No Reddened, Cracking or Open Areas Noted. LEFT Dorsalis Pedis Pulse: Palpable LEFT Posterior Tibial Pulse: Palpable LEFT Monofilament:Patient reports feeling monofilament pressure on plantar surface of foot Do you need diabetic shoes: N/A documented in this encounter Nursing Notes * Sybil Ruiz LPN - 02/12/2023 12:44 PM EDT Mike Orona presents for 3 month recheck. Medications & HM reviewed. documented in this encounter Plan of Treatment Upcoming Encounters Date Type Specialty Care Team Description 04/12/2023 Telemedicine Endocrinology Tiffany Iniguez PA-C [address] [place] [address] 05/15/2023 Office Visit Family Medicine Jo Flores PA-C [address] [place] [address] 07/10/2023 Imaging Radiology 09/20/2023 Office Visit Rheumatology Bert Osborne MD [address] [facility] [place] [address] Scheduled Procedures Name Priority Associated Diagnoses Date/Ti [...] 10/10/2021, Additional history exists TSH 02/21/2024 02/20/2023, 0607/2022, 10/13/2022, Additional history exists DTaP,Tdap,and Td Vaccines [...] 11/08/2010 LUNG CANCER SCREENING - USE SMARTSET 29773 Completed 11/16/2022, 11/10/2021, 10/20/2020, Additional history exists [...] Not on filedocumented as of this encounter Results * 25-HYDROXY VITAMIN D (02/20/2023 11:18 AM EDT) 25-Hydroxy Vitamin D 69 >19 ng/mL 02/20/2023 8:23 PM EDT [facility] Blood Venous blood specimen / Unknown Venipuncture / Unknown 02/20/2023 11:18 AM EDT 02/20/2023 11:18 AM EDT Narrative [facility] - 02/20/2023 8:23 PM EDT Deficient: <20 ng/mL Insufficient: 20-29 ng/mL Recommended/Optimum:30-50 ng/mL Vitamin D intoxication is rare. If suspicious of Vitamin D toxicity, evaluation of serum Calcium and PTH is recommended. Jo Flores PA-C LAB BLOOD ORD ERABLES [facility] [address] [place] [address] * (ABNORMAL) LIPID PANEL WITH DIRECT LDL IF TG IS HIGH (02/20/2023 11:18 AM EDT) Triglycerides 103 <=174 mg/dL 02/20/2023 7:35 PM EDT [facility] Comment: Triglyceride Reference Ranges (mg/dL): <150 Acceptable 150-174 Borderline high 175-499 High >=500 Very high Cholesterol 94 <200 mg/dL 02/20/2023 7:35 PM EDT [facility] Comment: Total Cholesterol Reference Ranges (mg/dL): <200 Desirable 200-239 Borderline high >=240 High HDL Cholesterol 31(L) >49 mg/dL 7:35 PM EDT [facility] Comment: HDL Cholesterol Reference Ranges (mg/dL): >=60 High (Desirable) <50 Low (Undesirable) For Females <40 Low (Undesirable) For Males Non-HDL Cholesterol 63 <=159 mg/dL 02/20/2023 7:35 PM EDT [facility] Comment: Non-HDL Cholesterol Reference Range (mg/dL): <100 Target level for high risk ASCVD patient <130 Optimal for general population 130-159 Near optimal for general population 160-189 Borderline High 190-219 High >=220 Very High LDL Cholesterol 42 <=129 mg/dL 02/20/2023 7:35 PM EDT [facility] Comment: LDL Cholesterol Reference Ranges (mg/dL): <70 Target level for high risk ASCVD patient <100 Optimal for general population 100-129 Near optimal for general population 130-159 Borderline high 160-189 High >=190 Very high Blood Venous blood specimen / Unknown Venipuncture / Unknown 02/20/2023 11:18 AM EDT 02/20/2023 11:18 AM EDT Jo Flores PA-C LAB BLOOD ORD ERABLES [facility] [address] [place] [address] * COMPREHENSIVE METABOLIC PANEL (02/20/2023 11:18 AM EDT) BUN 15 6 - 20 mg/dL 02/20/2023 1:44 PM EDT [place] [address] Creatinine 0.9 0.5 - 1.0 mg/dL 02/20/2023 1:44 PM EDT [place] [address] Estimated Glomerular Filtration Rate 67 >=60 mL/min 02/20/2023 1:44 PM EDT [facility] 56 Comment:eGFR is calculated b ased on the CKD-EPI 2020 equation Sodium 140 135 - 146 mmol/L 02/20/2023 1:[address]T [address] Potassium 4.5 3.5 - 5.1 mmol/L 02/20/2023 1:[address] Chloride 102 98 - 107 mmol/L 02/20/2023 1:44 PM EDT [facility] 56 CO2 28 22 - 32 mmol/L 02/20/2023 1:[address]T [address] Anion Gap 10 7 - 15 mmol/L 02/20/2023 1:44 PM EDT [facility] 56 Glucose 84 70 - 120 mg/dL 02/20/2023 1:44 PM EDT [facility] 56 Albumin 4.4 3.8 - 5.0 g/dL 02/20/2023 1:44 PM EDT [facility] 56 AST 31 10 - 35 U/L 02/20/2023 1:44 PM EDT [facility] 56 Alkaline Phosphatase 97 35 - 130 U/L 02/20/2023 1:44 PM EDT [facility] 56 Bilirubin, Total 0.3 <=1.2 mg/dL 02/20/2023 1:44 PM EDT [facility] 56 Calcium 9.9 8.4 - 10.2 mg/dL 02/20/2023 1:44 PM EDT [facility] 56- Protein 7.0 6.0 - 8.3 g/dL 02/20/2023 1:44 PM EDT [facility] 56- ALT 30 10 - 35 U/L 02/20/2023 1:44 PM EDT [facility] 56-02 Blood Venous blood specimen / Unknown Venipuncture / Unknown 02/20/2023 11:18 AM EDT 02/20/2023 11:18 AM EDT Jo Flores PA-C LAB BLOOD ORD ERABLES [facility] [address] [place] [address] * HEMOGLOBIN A1C (02/20/2023 11:18 AM EDT) Hemoglobin A1C 5.3 4.0 - 5.6 % 02/20/2023 7:28 PM EDT [facility] Comment:The use of HbA1c to monitor glycemic status is based on normal hemoglobin and HbA composition. This test should not be used in patients with abnormal hemoglobin that affects the half life of the red blood cell or the in vivo glycation rates. Estimated Average Glucose 105 <126 mg/dL 02/20/2023 7:28 PM EDT [facility] Blood Venous blood specimen / Unknown Venipuncture / Unknown 02/20/2023 11:18 AM EDT 02/20/2023 11:18 AM EDT Jo Flores PA-C LAB BLOOD ORD ERAADONIS [facility] [address] [place] [address] * (ABNORMAL) TSH WITH FREE T4 IF INDICATED (02/20/2023 11:18 AM EDT) TSH 0.01(L) 0.27 - 4.20 uIU/mL 02/20/2023 8:23 PM EDT [facility] Blood Venous blood specimen / Unknown Venipuncture / Unknown 02/20/2023 11:18 AM EDT 02/20/2023 11:18 AM EDT Jo Flores PA-C LAB BLOOD ORD ERABLES [facility] [address] [place] [address] documented in this encounter Visit Diagnoses Diagnosis DM type 2 nursing care encounter (HCC)- Primary Type II or unspecified type diabetes mellitus without mention of complication, not stated as uncontrolled Type 2 diabetes mellitus with hemoglobin A1c goal of less than 8.0% (HCC) Hypothyroidism, unspecified type Diabetes mellitus with peripheral angiopathy (HCC) Type II or unspecified type diabetes mellitus with peripheral circulatory disorders, not stated as uncontrolled Pure hypercholesterolemia Other emphysema (HCC) Other emphysema Obstructive lung disease (HCC) Chronic airway obstruction, not elsewhere classified CREST syndrome (HCC) Systemic sclerosis Carotid stenosis, non-symptomatic, bilateral Subclavian arterial stenosis (HCC) Stricture of artery Vitamin D deficiency Unspecified vitamin D deficiency Esophagitis Esophagitis, unspecified Undifferentiated connective tissue disease (HCC) Unspecified diffuse connective tissue disease Dementia without behavioral disturbance (HCC) Dementia, unspecified, without behavioral disturbance Scleroderma, limited (HCC) Systemic sclerosis Systemic sclerosis (HCC) Systemic sclerosis Body mass index 27.0-27.9, adult Body Mass Index 27.0-27.9, adult documented in this encounter Advance Directives Latest Code Status on File Code Status Date Activated Date Inactivated Comments Full Code 07/23/2018 11:45 AM 07/24/2018 4:27 PM This o rder reflects the patients wishes and were consensually agreed upon. Care Teams [employer] Ramp Attendant Relationship Specialty Start Date End Date Oseas Macdonald III, MD [address] [place] [id number] PCP - General Family Medicine 06/04/15 documented as of this encounter
--- OUTSIDE RECORDS SUMMARY | 2023-07-31 11:43 | External Medical Summary ---
Author Name Unknown Address Unknown Organization : Laboratory Report Ordering Provider Test Date Status NATHANIEL PICHARDO 06/01/2023 12:19:35 Final Observation Date Value Abnormality Reference (Units ) Status Alpha 1 antitrypsin phenotyping [Interpretation] in Serum or Plasma 06/01/2023 12:19:35 115 83-199 (mg/dL) Final Alpha 1 antitrypsin phenotyping [Interpretation] in Serum or Plasma 06/01/2023 12:19:35 SEE BELOW Final THIS PATIENT'S BZOPY-2-YIUFG RYPSIN PHENOTYPE IS
PI*MM.
90% of normal individuals have the MM phenotype,
with normal quantitative AAT levels. Many
phenotypic patterns have been described, including
deficiency states with F, S, Z, or other alleles.
As a general estimation, compared to M allele of
100% of normal T-8-Wzvtsgvllqe protein, the S
allele produces approximately 60% and the Z allele
20%. For example, an MS phenotype would have about
80% of normal B-7-Doygarxtwqv protein level, a 50%
contribution from the M allele and 30% from the S
allele. A ZZ phenotype would have about 20% of
normal levels, a 10% contribution from each Z
gene. The F allele has normal N-0-Rrbzfevynyj
levels, but the kinetics of elastase inhibition is
not as efficient as an M allele product; F alleles
should be considered functionally mildly
deficient. Other variants are identifiable by
phenotypic analysis. These include CM, DP, EM, GM,
IS, LM, M1M2, M3M3, MP, MT, XX, MY, and M1N. I, P,
T and null alleles are considered deleterious. C,
D, E, G, L, M1, M2, M3, X and Y alleles are
generally considered normal variants. The MZ- Reyes
phenotype is a normal variant; care should be
taken to avoid confusion with the deficient MZ
phenotype.
Test performed by [facility]
[address],
[place] [address]

Security Systems Integrator: Abbie Gordon MD,PHD,JOSE
Test Reported by [facility],
[facility],
[address] [place], [place]
Israel Breaux M.D., Ph.D., Director of Laboratories
, [facility] [id number] Performing Location
--- OUTSIDE RECORDS SUMMARY | 2023-07-31 11:44 | External Medical Summary | Summary of Care ---
Author Name Unknown Organization [facility] Address [address] [place] [address] Phone [phone] Care Team Providers Care Sales Audit Clerk Name Role Phone Renae MEDINA MD, John E Primary Care Provider [phone] Reason for Visit * Reason Comments eRx-Medication Refill Encounter Details Date Type Department Care Team Description 02/24/2023 Refill [facility] [address] [facility] [place] [address] Rashaad Tran III, MD [address] [facility] [place] [address] Allergies Active Allergy Reactions Severity Noted Date Comments Clarithromycin 05/09/2010 Confusion, "buzzing sound in head" documented as of this encounter (statuses as of 02/25/2023) Medications Medication Sig Dispensed Refills Start Date [...] DAILY. DX:E11.9 300 Each 3 1 Active rOPINIRole HCl 0.5 MG Oral Tablet (Requip)Indicati ons:Restless legs syndrome TAKE 1 TABLET BY MOUTH EVERY DAY FOR RESTLESS LEGS 90 Tablet 11 2 Active Donepezil HCl 10 MG Oral Tablet (Aricept) TAKE 1 TABLET BY MOUTH IN THE EVENING WITH THE LARGEST MEAL. 90 Tablet 11 2 Active Fluticasone Propionate 50 MCG/ACT Nasal Suspension [...] OR CHEW 90 Capsule 1 3 Active Levothyroxine Sodium 75 MCG Oral Tablet (Levoxyl) Take 1 Tablet by mouth daily first thing in the morning. (at least 30 min prior to breakfast or other meds) 90 Tablet 1 3 Active Trulicity 0.75 MG/0.5ML [...] WITH BREAKFAST 180 Tablet 0 3 Active Gabapentin 300 MG Oral Capsule (Neurontin) Take 1 Capsule by mouth in the morning and 1 Capsule at noon and 1 Capsule before bedtime. 90 Capsule 5 3 03/14/20 23 Active Ezetimibe 10 MG Oral Tablet (Zetia)Indicatio ns:Type 2 diabetes mellitus with hemoglobin A1c goal of less than 8.0% (HCC) TAKE 1 TABLET BY MOUTH EVERY DAY 90 Tablet 3 3 Active metFORMIN HCl ER 500 MG Oral Tablet Extended Release 24 Hour (Glucophage XR) TAKE 2 TABLETS BY MOUTH TWICE A DAY WITH MORNING AND EVENING MEALS 360 Tablet 3 3 Active metFORMIN HCl ER 500 MG Oral Tablet Extended Release 24 Hour (Glucophage XR) TAKE 2 TABLETS BY MOUTH TWICE A DAY WITH MORNING AND EVENING MEALS 360 Tablet 2 2 02/26/20 23 Discontinued documented as of this encounter (statuses as of 02/25/2023) Active Problems Problem Noted Date Subclavian arterial [...] Family history of breast cancer in [place] 11/17/2015 Pure hypercholesterolemia 04/20/2014 Scleroderma, 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 [...] as of this encounter (statuses as of 02/25/2023) Resolved Problems Problem Noted Date Resolved Date [...] as of this encounter (statuses as of 02/25/2023) Immunizations Name Administration Dates Next Due COVID-19 mRNA, LNP-s, No Pre serve, 2-Dose Series (Pfizer) 07/30/2021,11/11/2020,10/21/2020 DT - Diptheria/Tetanus (PEDS) 06/04/2015 Pneumococcal Conjugate Vacc, 13 Valent (Prevnar) 04/26/2020 Pneumococcal Polysaccharide PPV23 (Pneumovax) 10/19/2021,11/08/2010 Seasonal Influenza Virus Vac cine, Unspecified Formulation 04/03/2019,04/04/2018,03/29/2017,03/22,05/17/2015,04/08/2014,05/09/2011 ,06/06/2010,06/12/2006 Seasonal Influenza, Quadriva lent Hd (Fluzone Hd) 07/04/2022,04/20/2021 Seasonal Influenza, Quadriva lent, No Preserve, 6 Mons & Above, IM 04/03/2019,04/04/2018 Seasonal Influenza, Quadriva lent, No Preserve, Adjuvanted, 65+ Yrs, IM 04/26/2020 Seasonal Influenza, Quadriva lent, No Preserve, IM [...] encounter Miscellaneous Notes * Telephone Encounter - Claudia Miner [facility] - 02/25/2023 1:19 PM EDTSigned Prescriptions: Disp Refills metFORMIN HCl ER 500 MG Oral Tablet Extend*360 Ta*3 Sig: TAKE 2 TABLETS BY MOUTH TWICE A DAY WITH MORNING AND EVENING MEALSAuthorizing Provider: RASHAAD TRAN III User: CLAUDIA MINER documented in this encounter Plan of Treatment Upcoming Encounters Date Type Specialty Care Team Description 04/12/2023 Telemedicine Endocrinology Tiffany Iniguez PA-C [address] [place] [address] 05/15/2023 Office Visit Family Medicine Jo Flores PA-C [address] [place] [address] 07/10/2023 Imaging Radiology 09/20/2023 Office Visit Rheumatology Bert Osborne MD [address] [place] [address] Scheduled Procedures Name Priority Associated Diagnoses Date/Ti [...] 07/04/2022, 04/20/2021, 04/26/2020, Additional history exists Depression Screening, Annual for Pts 12 and Over 07/04/2023 07/04/2022 Mammogram 07/05/2023 07/05/2022, 06/16, 07/02/2020, Additional history exists HbA1c 08/23/2023 02/20/2023, 09/15, 07/05/2022, Additional history exists Albumin/Creatinine Ratio 10/14/2023 023, 10/11/2021, 04/25/2016, Additional history exists DIABETES-EYE EXAM 12/21/2023 12/20/2022, , 09/01/2020, Additional history exists DIABETES-FOOT EXAM 02/13/2024 02/12/2023, 0 01/27/2022, 07/26/2020, Additional history exists O2 ASSESSMENT COMPLETED IN PAST YEAR FOR COPD 02/13/2024 02/12/2023 GFR 02/21/2024 02/20/2023, 09/15, 10/10/2021, Additional history exists TSH 02/21/2024 02/20/2023, 060 07/2022, 10/13/2022, Additional history exists DTaP,Tdap,and Td [...] 11/08/2010 LUNG CANCER SCREENING - USE SMARTSET [id number] Completed 11/16/2022, 11/10/2021, 10/20/2020, Additional history exists [...] and were consensually agreed upon. Care Teams Sales Audit Clerk Relationship Specialty Start Date End Date Rashaad Tran III, MD [address] [place] [address], [place] [address] PCP - General Family Medicine 06/04/15 documented as of this encounter
--- OUTSIDE RECORDS SUMMARY | 2023-07-31 11:44 | External Medical Summary | Summary of Care ---
Author Name Unknown Organization [facility] Address [address] [place] [address] Phone [phone] Care Team Providers Care Instructor Adjunct Pharmacy Technician Name Role Phone Renae MEDINA MD, Oseas Singh Primary Care Provider [phone] Encounter Details Date Type Department Care Team Description 03/07/2023 Orders Only Outcomes Research Department [address] [place], [place] [id number] Olesya Huang [facility] [employer] [facility] Other*[id number] Allergies Active Allergy Reactions Severity Noted Date Comments Clarithromycin 05/09/2010 Confusion, "buzzing sound in head" documented as of this encounter (statuses as of 03/07/2023) Medications Medication Sig Dispensed Refills Start Date [...] 100 Cap 3 01/25/2018 Active MEDICAL INSTRUCTIONS Care Home-for monitoring of [...] DAILY. DX:E11.9 300 Each 3 12/25/2020 Active rOPINIRole HCl 0.5 MG Oral Tablet (Requip)Indication s:Restless legs syndrome TAKE 1 TABLET BY MOUTH EVERY DAY FOR RESTLESS LEGS 90 Tablet 11 02/21/2022 Active Donepezil HCl 10 MG Oral Tablet (Aricept) TAKE 1 TABLET BY MOUTH IN THE EVENING WITH THE LARGEST MEAL. 90 Tablet 11 02/21/2022 Active Fluticasone Propionate 50 MCG/ACT Nasal Suspension (Flonase) ADMINISTER 2 SPRAYS INTO EACH NOSTRIL EVERY DAY 48 mL 3 04/21/2022 Active Pantoprazole Sodium 40 MG Oral Tablet Delayed Release (Protonix) TAKE 1 TABLET BY MOUTH EVERY DAY 30 MINUTES BEFORE 1ST MEAL 90 Tablet 3 06/07/2022 Active Accu-Chek Katlyn Plus In Vitro Strip [...] a day. 100 Each 3 08/15/2022 Active Mirtazapine 30 MG Oral Tablet (Remeron) TAKE 1 TABLET BY MOUTH EVERYDAY AT BEDTIME 90 Tablet 1 08/16/2022 Active Losartan Potassium 25 MG Oral Tablet (Cozaar)Indication s:Systemic sclerosis (HCC) TAKE 1/2 TABLET BY MOUTH EVERY DAY 45 Tablet 1 08/16/2022 Active traZODone HCl 50 MG Oral Tablet (Desyrel) TAKE 1 TABLET BY MOUTH EVERY DAY AT BEDTIME NEEDED 90 Tablet 1 08/16/2022 Active Venlafaxine HCl ER 75 MG Oral Capsule Extended Release 24 Hour (Effexor XR) TAKE 1 CAPSULE BY MOUTH DAILY. DO NOT CUT, CRUSH, OR CHEW 90 Capsule 1 09/05/2022 Active Levothyroxine Sodium 75 MCG Oral Tablet (Levoxyl) Take 1 Tablet by mouth daily first thing in the morning. (at least 30 min prior to breakfast or other meds) 90 Tablet 1 10/15/2022 Active Trulicity 0.75 MG/0.5ML Subcutaneous Solution Pen-injector (Dulaglutide) Inject 0.75 mg under the skin once a week. 2 mL 6 10/27/2022 Active Clopidogrel Bisulfate 75 MG Oral Tablet [...] DX E11.9 100 Each 3 01/04/2023 Active Ferrous Sulfate 325 (65 Fe) MG Oral Tablet (Feosol) TAKE 2 TABLETS BY MOUTH EVERY DAY WITH BREAKFAST 180 Tablet 0 02/09/2023 Active Gabapentin 300 MG Oral Capsule (Neurontin) Take 1 Capsule by mouth in the morning and 1 Capsule at noon and 1 Capsule before bedtime. 90 Capsule 5 02/12/2023 Active Ezetimibe 10 MG Oral Tablet (Zetia)Indications :Type 2 diabetes mellitus with hemoglobin A1c goal of less than 8.0% (HCC) TAKE 1 TABLET BY MOUTH EVERY DAY 90 Tablet 3 02/15/2023 Active metFORMIN HCl ER 500 MG Oral Tablet Extended Release 24 Hour (Glucophage XR) TAKE 2 TABLETS BY MOUTH TWICE A DAY WITH MORNING AND EVENING MEALS 360 Tablet 3 02/25/2023 Active documented as of this encounter (statuses as of 03/07/2023) Active Problems Problem Noted Date Subclavian arterial [...] as of this encounter (statuses as of 03/07/2023) Resolved Problems Problem Noted Date Resolved Date [...] as of this encounter (statuses as of 03/07/2023) Immunizations Name Administration Dates Next Due COVID-19 [...] Telemedicine Endocrinology Tiffany Iniguez PA-C [address] [place] [address] 05/15/2023 Office Visit Family Medicine Jo Flores PA-C [address] [place] [address] 07/10/2023 Imaging Radiology 09/20/2023 Office Visit Rheumatology Bert Osborne MD [address] [place] [address] Scheduled Orders Name Type Priority Associated Diagnoses Orde r Schedule MYCODE SUBSEQUENT ADULT Lab Routine [employer] Research Other*[id number] Every 6 Months for 2 Occurrences starting 03/07/2023 until 03/26/2024 Scheduled Procedures Name Priority Associated Diagnoses Date/Ti [...] 07/02/2020, Additional history exists HbA1c 08/23/2023 02/20/2023, 3 07/2022, 07/05/2022, Additional history exists Albumin/Creatinine Ratio 10/14/2023 023, 10/11/2021, 04/25/2016, Additional history exists DIABETES-EYE EXAM 12/21/2023 12/20/2022, , 09/01/2020, Additional history exists DIABETES-FOOT EXAM 02/13/2024 02/12/2023, 0 01/27/2022, 07/26/2020, Additional history exists O2 ASSESSMENT COMPLETED IN PAST YEAR FOR COPD 02/13/2024 02/12/2023 GFR 02/21/2024 02/20/2023, 033 07/2022, 10/10/2021, Additional history exists TSH 02/21/2024 02/20/2023, [...] 11/08/2010 LUNG CANCER SCREENING - USE SMARTSET [id number] Completed 11/16/2022, 11/10/2021, 10/20/2020, Additional history exists [...] as of this encounter Visit Diagnoses Diagnosis [employer] Other*[id number] documented in this encounter Advance Directives Latest Code Status on File Code Status Date Activated Date Inactivated Comments Full Code 07/23/2018 11:45 AM 07/24/2018 4:27 PM This o rder reflects the patients wishes and were consensually agreed upon. Care Teams Instructor Adjunct Pharmacy Technician Relationship Specialty Start Date End Date Oseas Macdonald III, MD [address] [place] [address], [place] [address] PCP - General Family Medicine 06/04/15 documented as of this encounter
--- OUTSIDE RECORDS SUMMARY | 2023-07-31 11:44 | External Medical Summary | Summary of Care ---
Author Name Unknown Organization [facility] Address [address] [place] [address] Phone [phone] Care Team Providers Care Abnormal Psychology Teacher Name Role Phone Renae MEDINA MD, John E Primary Care Provider [phone] Reason for Visit * Reason Comments eRx-Medication Refill Encounter Details Date Type Department Care Team Description 03/10/[address] [facility] [address] [place] [address] Rashaad Tran III, MD [address] [place] [address] Restless legs syndrome Allergies Active Allergy Reactions Severity Noted Date Comments Clarithromycin 05/09/2010 Confusion, "buzzing sound in head" documented as of this encounter (statuses as of 03/11/2023) Medications Medication Sig Dispensed Refills Start Date [...] 100 Cap 3 8 Active MEDICAL INSTRUCTIONS Halfway-for monitoring of med. compliance, filling of med. [...] RESTLESS LEGS 90 Tablet 11 3 Active rOPINIRole HCl 0.5 MG Oral Tablet (Requip)Indicati ons:Restless legs syndrome TAKE 1 TABLET BY MOUTH EVERY DAY FOR RESTLESS LEGS 90 Tablet 11 2 03/11/20 23 Discontinued Donepezil HCl 10 MG Oral Tablet (Aricept) TAKE 1 TABLET BY MOUTH IN THE EVENING WITH THE LARGEST MEAL. 90 Tablet 11 2 03/11/20 23 Discontinued documented as of this encounter (statuses as of 03/11/2023) Active Problems Problem Noted Date Subclavian arterial [...] as of this encounter (statuses as of 03/11/2023) Resolved Problems Problem Noted Date Resolved Date [...] as of this encounter (statuses as of 03/11/2023) Immunizations Name Administration Dates Next Due COVID-19 mRNA, LNP-s, No Pre serve, 2-Dose Series (Koru) 07/30/2021,11/11/2020,10/21/2020 DT - Diptheria/Tetanus (PEDS) 06/04/2015 Pneumococcal [...] encounter Miscellaneous Notes * Telephone Encounter - Carina Trejo, [facility] - 03/11/2023 9:38 AM EDT Signed Prescriptions: Disp Refills Donepezil HCl 10 MG Oral Tablet (Aricept) 90 Tab*11 Sig: TAKE 1 TABLET BY MOUTH IN THE EVENING WITH THE LARGEST MEAL.Authorizing Provider: RASHAAD TRAN IIIr: CARINA TREJO rOPINIRole HCl 0.5 MG Oral Tablet (Requip) 90 Tab*11 Sig: TAKE 1 TABLET BY MOUTH EVERY DAY FOR RESTLESS LEGSAuthorizing Provider: RASHAAD TRAN III User: CARINA TREJO documented in this encounter Plan of Treatment Upcoming Encounters Date Type Specialty Care Team Description 04/12/2023 Telemedicine Endocrinology Tiffany Iniguez PA-C [address] [place] [address] 05/15/2023 Office Visit Family Medicine Jo Flores PA-C [address] [place] [address] 07/10/2023 Imaging Radiology 09/20/2023 Office Visit Rheumatology Bert Osborne MD [address] [place] [address] Scheduled Procedures Name Priority Associated Diagnoses Date/Ti [...] 11/08/2010 LUNG CANCER SCREENING - USE SMARTSET 25825 Completed 11/16/2022, 11/10/2021, 10/20/2020, Additional history exists [...] as of this encounter Visit Diagnoses Diagnosis Restless legs syndrome Restless legs syndrome (RLS) documented in this encounter Advance Directives Latest Code Status on File Code Status Date Activated Date Inactivated Comments Full Code 07/23/2018 11:45 AM 07/24/2018 4:27 PM This o rder reflects the patients wishes and were consensually agreed upon. Care Teams Abnormal Psychology Teacher Relationship Specialty Start Date End Date Rashaad Tran III, MD [address] [place] [address], [place] [address] PCP - General Family Medicine 06/04/15 documented as of this encounter
--- OUTSIDE RECORDS SUMMARY | 2023-07-31 11:44 | External Medical Summary | Summary of Care ---
Author Name Unknown Organization [facility] Address [address] [place] [address] Phone [phone] Care Team Providers Care Health Care Social Worker Name Role Phone Renae MEDINA MD, John E Primary Care Provider [phone] Reason for Visit * Reason Onset Date Comments Forms Request 02/27/2023 Encounter Details Date Type Department Care Team Description 02/27/2023 Telephone Family Practice [facility] [place] [address] [facility] [place] [address] Oseas Macdonald III, MD [address] [facility] [place] [address] Forms Request Allergies Active Allergy Reactions Severity Noted Date Comments Clarithromycin 05/09/2010 Confusion, "buzzing sound in head" documented as of this encounter (statuses as of 02/27/2023) Medications Medication Sig Dispensed Refills Start Date [...] 100 Cap 3 01/25/2018 Active MEDICAL INSTRUCTIONS Residential-for monitoring of med. [...] as of this encounter (statuses as of 02/27/2023) Active Problems Problem Noted Date Subclavian arterial [...] as of this encounter (statuses as of 02/27/2023) Resolved Problems Problem Noted Date Resolved Date [...] as of this encounter (statuses as of 02/27/2023) Immunizations Name Administration Dates Next Due COVID-19 [...] encounter Miscellaneous Notes * Telephone Encounter - ELOISE Genao - 02/27/2023 11:48 AM EDT DME form for medical necessity from [facility]. Placed on Dr. Mejia's desk. documented in this encounter Plan of Treatment Upcoming Encounters Date Type Specialty Care Team Description 04/12/2023 Telemedicine Endocrinology Tiffany Iniguez PA-C [address] [place] [address] 05/15/2023 Office Visit Family Medicine Jo Flores PA-C [address] [facility] [address] 07/10/2023 Imaging Radiology 09/20/2023 Office Visit Rheumatology Bert Osborne MD [address] [facility] [place] [address] Scheduled Procedures Name Priority Associated Diagnoses Date/Ti [...] 11/08/2010 LUNG CANCER SCREENING - USE SMARTSET [id number] Completed 11/16/2022, 11/10/2021, 10/20/2020, Additional history exists [...] were consensually agreed upon. Care Teams Health Care Social Worker Relationship Specialty Start Date End Date Oseas Macdonald III, MD [address] [facility] [place] [address] PCP - General Family Medicine 06/04/15 documented as of this encounter
--- OUTSIDE RECORDS SUMMARY | 2023-07-31 11:44 | External Medical Summary | Summary of Care ---
Author Name Unknown Organization [facility] Address [address] [place] [address] Phone [phone] Care Team Providers Care Academic Registrar Name Role Phone Renae MEDINA MD, John E Primary Care Provider [phone] Reason for Visit * Reason Comments eRx-Medication Refill Encounter Details Date Type Department Care Team Description 03/29/2023 Refill Family Practice [facility] [address] [facility] [place] [address] Rashaad Tran III, MD [address] [facility] [place] [address] Hypothyroidism, unspecified type* Allergies Active Allergy Reactions [...] mRNA, LNP-s, No Pre serve, 2-Dose Series ([employer]) 07/30/2021,11/11/2020,10/21/2020 DT - Diptheria/Tetanus (PEDS) 06/04/2015 Pneumococcal [...] III * Telephone Encounter - Shaniqua Barajas [facility] - 03/30/2023 11:36 AM EDTPending Prescriptions: Disp Refills Levothyroxine Sodium 75 MCG Oral Tablet (L*90 Tab*0 Sig: TAKE 1 TAB BY MOUTH DAILY 1ST THING IN THE MORNING(AT LEAST 30 MIN PRIOR TO BREAKFAST OR OTHER MEDS) * Telephone Encounter - Shaniqua Barajas [facility] - 03/30/2023 11:27 AM EDT Unable [...] [facility] ([facility]) (formerly Telepharmacy) [phone] 03/30/2023, 11:34 AM documented in this encounter Plan of Treatment Upcoming Encounters Date Type Specialty Care Team Description 04/12/2023 Telemedicine Endocrinology Tiffany Iniguez PA-C [address] [place] [address] 05/15/2023 Office Visit Family Medicine Jo Flores PA-C [address] [place] [address] 07/10/2023 Imaging Radiology 09/20/2023 Office Visit Rheumatology Bert Osborne MD [address] [place] [address] Scheduled Orders Name Type Priority Associated Diagnoses [...] 11/08/2010 LUNG CANCER SCREENING - USE SMARTSET [id number] Completed 11/16/2022, 11/10/2021, 10/20/2020, Additional history exists [...] and were consensually agreed upon. Care Teams Academic Registrar Relationship Specialty Start Date End Date Rashaad Tran III, MD [address] [place] [address] PCP - General Family Medicine 06/04/15 documented as of this encounter
--- OUTSIDE RECORDS SUMMARY | 2023-07-31 11:45 | External Medical Summary | Summary of Care ---
Author Name Unknown Organization [facility] Address [address] [place] [address] Phone [phone] Care Team Providers Care Department Traffic Freight Router Name Role Phone Renae MEDINA MD, John E Primary Care Provider [phone] Encounter Details Date Type Department Care Team Description 02/01/2023 Telephone Family Practice [facility] [place] [address] [place] [address] Oseas Macdonald III, MD [address] [place] [address] Allergies Active Allergy Reactions Severity Noted Date Comments Clarithromycin 05/09/2010 Confusion, "buzzing sound in head" documented as of this encounter (statuses as of 02/01/2023) Medications Medication Sig Dispensed Refills Start Date [...] EVERY DAY 48 mL 3 04/21/2022 Active metFORMIN HCl ER 500 MG Oral Tablet Extended Release 24 Hour (Glucophage XR) TAKE 2 TABLETS BY MOUTH TWICE A DAY WITH MORNING AND EVENING MEALS 360 Tablet 2 06/05/2022 Active Pantoprazole Sodium 40 MG Oral Tablet [...] EVERY DAY 45 Tablet 1 08/16/2022 Active Ferrous Sulfate 325 (65 Fe) MG Oral Tablet (Feosol) TAKE 2 TABLETS BY MOUTH EVERY DAY WITH BREAKFAST 180 Tablet 1 08/16/2022 Active traZODone HCl 50 MG Oral Tablet (Desyrel) TAKE 1 TABLET BY MOUTH EVERY DAY AT BEDTIME NEEDED 90 Tablet 1 08/16/2022 Active Venlafaxine HCl ER 75 MG Oral Capsule Extended Release 24 Hour (Effexor XR) TAKE 1 CAPSULE BY MOUTH DAILY. DO NOT CUT, CRUSH, OR CHEW 90 Capsule 1 09/05/2022 Active Ezetimibe 10 MG Oral Tablet (Zetia)Indications :Type 2 diabetes mellitus with hemoglobin A1c goal of less than 8.0% (HCC) TAKE 1 TABLET BY MOUTH EVERY DAY 90 Tablet 0 09/16/2022 Active Gabapentin 300 MG Oral Capsule (Neurontin) Take 1 Capsule by mouth in the morning and 1 Capsule in the evening. 90 Capsule 5 10/05/2022 Active Levothyroxine Sodium 75 MCG Oral Tablet [...] DX E11.9 100 Each 3 01/04/2023 Active documented as of this encounter (statuses as of 02/01/2023) Active Problems Problem Noted Date Subclavian arterial [...] as of this encounter (statuses as of 02/01/2023) Resolved Problems Problem Noted Date Resolved Date [...] as of this encounter (statuses as of 02/01/2023) Immunizations Name Administration Dates Next Due COVID-19 [...] encounter Miscellaneous Notes * Telephone Encounter - FRENCH Cortez - 02/01/2023 3:11 PM EDT PLASTIC SURGERY REFERRAL OP Status: Needs Scheduling Requested appt date: Authorizing: Maribel Andujar PA-C in [facility] Referral: [id number] (Pending Review) Priority: Within 30 days (routine) Diagnosis: Skin abnormality [L98.9] Denied scheduling Please call to schedule documented in this encounter Plan of Treatment Upcoming Encounters Date Type Specialty Care Team Description 02/12/2023 Office Visit Family Medicine Jo Flores PA-C [address] [place], [place] [address] [address] 04/12/2023 Telemedicine Endocrinology Tiffany nIiguez PA-C [address] [place] [address] 07/10/2023 Imaging Radiology 09/20/2023 Office Visit Rheumatology Bert Osborne MD [address] [place] [address] Scheduled Procedures Name Priority Associated Diagnoses Date/Ti me COLONOSCOPY FLEXIBLE PROXIMAL DIAGNOSTIC Recall Screen for colon cancer Health Maintenance Due Date Last Done Comments Alpha-1 Antitrypsin 1973 Cologuard 2000 Sigmoidoscopy 2000 Fecal Occult Blood Test 05/19/2020 05/19/20, 09/11/2016, 09/17/2008, Additional history exists COVID-19 Vaccine (4 - Pfizer series) 09/24/2021 07/30/2021, 11/11/2020, 10/21/2020 DIABETES-FOOT EXAM 01/27/2023 01/27/2022, 0 07/26/2020, 05/14/2019, Additional history exists Influenza Vaccine (FLU shot) (#1) 2023 07/04/2022, 04/20/2021, 04/26/2020, Additional history exists HbA1c 04/14/2023 10/13/2022, 06/16, 01/27/2022, Additional history exists Depression Screening, Annual for Pts 12 and Over 07/04/2023 07/04/2022 Mammogram 07/05/2023 07/05/2022, 06/16, 07/02/2020, Additional history exists Albumin/Creatinine Ratio 10/14/2023 023, 10/11/2021, 04/25/2016, Additional history exists GFR 10/14/2023 10/13/2022, 09/14, 10/28/2020, Additional history exists O2 ASSESSMENT COMPLETED IN PAST YEAR FOR COPD 10/28/2023 10/27/2022 TSH 12/15/2023 12/14/2022, 09/15, 07/05/2022, Additional history exists DIABETES-EYE EXAM 12/21/2023 12/20/2022, , 09/01/2020, Additional history exists DTaP,Tdap,and Td Vaccines (3 [...] 11/08/2010 LUNG CANCER SCREENING - USE SMARTSET [id number] Completed 11/16/2022, 11/10/2021, 10/20/2020, Additional history exists [...] and were consensually agreed upon. Care Teams Department Traffic Freight Router Relationship Specialty Start Date End Date Renae MEDINA, Oseas Singh MD [address] [place] [address], [place] [address] PCP - General Family Medicine 06/04/15 documented as of this encounter
--- OUTSIDE RECORDS SUMMARY | 2023-07-31 11:45 | External Medical Summary | Summary of Care ---
Author Name Unknown Organization [facility] Address [address] [place] [address] Phone [phone] Care Team Providers Care Shoulder Puncher Name Role Phone Renae MEDINA MD, John E Primary Care Provider [phone] Reason for Visit * Reason Comments eRx-Medication Refill Encounter Details Date Type Department Care Team Description 02/09/2023 Refill Family Practice [facility] [address] [facility] [place] [address] Rashaad Tran III, MD [address] [facility] [place] [address] Allergies Active Allergy Reactions Severity Noted Date Comments Clarithromycin 05/09/2010 Confusion, "buzzing sound in head" documented as of this encounter (statuses as of 02/09/2023) Medications Medication Sig Dispensed Refills Start Date [...] EVERY DAY 48 mL 3 2 Active metFORMIN HCl ER 500 MG Oral Tablet Extended Release 24 Hour (Glucophage XR) TAKE 2 TABLETS BY MOUTH TWICE A DAY WITH MORNING AND EVENING MEALS 360 Tablet 2 2 Active Pantoprazole Sodium 40 MG Oral [...] OR CHEW 90 Capsule 1 3 Active Ezetimibe 10 MG Oral Tablet (Zetia)Indicatio ns:Type 2 diabetes mellitus with hemoglobin A1c goal of less than 8.0% (HCC) TAKE 1 TABLET BY MOUTH EVERY DAY 90 Tablet 0 3 Active Gabapentin 300 MG Oral Capsule (Neurontin) Take 1 Capsule by mouth in the morning and 1 Capsule in the evening. 90 Capsule 5 3 Active Levothyroxine Sodium 75 MCG Oral [...] WITH BREAKFAST 180 Tablet 0 3 Active Ferrous Sulfate 325 (65 Fe) MG Oral Tablet (Feosol) TAKE 2 TABLETS BY MOUTH EVERY DAY WITH BREAKFAST 180 Tablet 1 3 02/10/20 23 Discontinued documented as of this encounter (statuses as of 02/09/2023) Active Problems Problem Noted Date Subclavian arterial [...] as of this encounter (statuses as of 02/09/2023) Resolved Problems Problem Noted Date Resolved Date [...] as of this encounter (statuses as of 02/09/2023) Immunizations Name Administration Dates Next Due COVID-19 mRNA, LNP-s, No Pre serve, 2-Dose Series ([employer]) 07/30/2021,11/11/2020,10/21/2020 DT - Diptheria/Tetanus (PEDS) 06/04/2015 Pneumococcal [...] Notes * Telephone Encounter - Preeti Hooks, formerly [facility] - 02/09/2023 2:47 PM EDTSigned Prescriptions: Disp Refills Ferrous Sulfate 325 (65 Fe) MG Oral Tablet*180 Ta*0 Sig: TAKE 2 TABLETS BY MOUTH EVERY DAY WITH BREAKFAST Authorizing Provider: RASHAAD TRAN III User: PREETI HOOKS * Telephone Encounter - Preeti Ni Hooks RP - 02/09/2023 2:47 PM EDT RX authorized. Zero refills given until upcoming OV. Thank you, Preeti Hooks, PharmD Staff Pharmacist Refill Call Center [phone] 02/09/2023, 2:47 PM documented in this encounter Plan of Treatment Upcoming Encounters Date Type Specialty Care Team Description 02/12/2023 Office Visit Family Medicine Jo Flores PA-C [address] [place] [address] 04/12/2023 Telemedicine Endocrinology Tiffany Iniguez PA-C [address] [place], [place] [id number] 07/10/2023 Imaging Radiology 09/20/2023 Office Visit Rheumatology Bert Osborne MD [address] [place] [address] Scheduled Procedures Name Priority Associated Diagnoses Date/Ti [...] 10/14/2023 10/13/2022, 09/14, 10/28/2020, Additional history exists TSH 12/15/2023 12/14/2022, 09/15, 07/05/2022, Additional history exists DIABETES-EYE EXAM 12/21/2023 12/20/2022, , 09/01/2020, Additional history exists O2 ASSESSMENT COMPLETED IN PAST YEAR FOR COPD 02/02/2024 02/01/2023 DTaP,Tdap,and Td Vaccines (3 - Td or [...] 11/08/2010 LUNG CANCER SCREENING - USE SMARTSET [id number] Completed 11/16/2022, 11/10/2021, 10/20/2020, Additional history exists [...] and were consensually agreed upon. Care Teams Shoulder Puncher Relationship Specialty Start Date End Date aRshaad Tran III, MD [address] [place] [address] PCP - General Family Medicine 06/04/15 documented as of this encounter
--- OUTSIDE RECORDS SUMMARY | 2023-07-31 11:45 | External Medical Summary | Summary of Care ---
Author Name Unknown Organization [facility] Address [address] [place] [address] Phone [phone] Care Team Providers Care Drug Purchaser Name Role Phone Renae MEDINA MD, Oseas Singh Primary Care Provider [phone] Reason for Visit * Reason Comments Outpatient Testing Encounter Details Date Type Department Care Team Description 02/20/2023 Laboratory Laboratory [facility] [place] [address] [place] [address] [facility] [address] [place] [id number] Hypothyroidism, unspecified type; DM type 2 nursing care encounter ([facility]); Type 2 diabetes mellitus with hemoglobin A1c goal of less than 8.0% ([facility]); Pure hypercholesterolemia; Vitamin D deficiency Allergies Active Allergy Reactions Severity Noted Date Comments Clarithromycin 05/09/2010 Confusion, "buzzing sound in head" documented as of this encounter (statuses as of 02/20/2023) Medications Medication Sig Dispensed Refills Start Date [...] 100 Cap 3 01/25/2018 Active MEDICAL INSTRUCTIONS Nursing Home-for monitoring of med. compliance, filling of [...] EVERY DAY AT BEDTIME NEEDED 90 Tablet 08/16/2022 Active Venlafaxine HCl ER 75 MG Oral Capsule Extended Release 24 Hour (Effexor XR) TAKE 1 CAPSULE BY MOUTH DAILY. DO NOT CUT, CRUSH, OR CHEW 90 Capsule 09/05/2022 Active Levothyroxine Sodium 75 MCG Oral [...] TABLET BY MOUTH EVERY DAY 90 Tablet 10/31/2022 Active Insulin Glargine Solostar 100 UNIT/ML [...] Capsule before bedtime. 90 Capsule 5 02/12/2023 3 Active Ezetimibe 10 MG Oral Tablet (Zetia)Indications :Type 2 diabetes mellitus with hemoglobin A1c goal of less than 8.0% ([facility]) TAKE 1 TABLET BY MOUTH EVERY DAY 90 Tablet 3 02/15/2023 Active documented as of this encounter (statuses as of 02/20/2023) Active Problems Problem Noted Date Subclavian arterial [...] as of this encounter (statuses as of 02/20/2023) Resolved Problems Problem Noted Date Resolved Date [...] as of this encounter (statuses as of 02/20/2023) Immunizations Name Administration Dates Next Due COVID-19 [...] Telemedicine Endocrinology Tiffany Iniguez PA-C [address] [place] [address] 05/15/2023 Office Visit Family Medicine Jo Flores PA-C [address] [facility] [place] [address] 07/10/2023 Imaging Radiology 09/20/2023 Office Visit Rheumatology Bert Osborne MD [address] [facility] [place] [address] Pending Results Name Type Priority Associated Diagnoses Date /Time TSH WITH FREE T4 IF INDICATED Lab Routine Hypothyroidism, unspecified type 02/20/2023 11:18 AM EDT HEMOGLOBIN A1C Lab Routine DM type 2 nursing care encounter (HCC) Type 2 diabetes mellitus with hemoglobin A1c goal of less than 8.0% ([facility]) 02/20/2023 11:18 AM EDT COMPREHENSIVE METABOLIC PANEL Lab Routine DM type 2 nursing care encounter (HCC) Type 2 diabetes mellitus with hemoglobin A1c goal of less than 8.0% ([facility]) 02/20/2023 11:18 AM EDT LIPID PANEL WITH DIRECT LDL IF TG IS HIGH Lab Routine Pure hypercholesterolemia 02/20/2023 11:18 AM EDT 25-HYDROXY VITAMIN D Lab Routine Vitamin D deficiency 02/20/2023 11:18 AM EDT Scheduled Procedures Name Priority Associated Diagnoses Date/Ti [...] 10/28/2020, Additional history exists TSH 12/15/2023 12/14/2022, 03/07/2022, 07/05/2022, Additional history exists DIABETES-EYE EXAM 12/21/2023 12/20/2022, , 09/01/2020, Additional history exists DIABETES-FOOT EXAM 02/13/2024 02/12/2023, 0 01/27/2022, 07/26/2020, Additional history exists O2 ASSESSMENT COMPLETED IN PAST YEAR FOR COPD 02/13/2024 02/12/2023 DTaP,Tdap,and Td Vaccines (3 - Td or [...] 11/08/2010 LUNG CANCER SCREENING - USE SMARTSET [id number] Completed 11/16/2022, 11/10/2021, 10/20/2020, Additional history exists [...] encounter Visit Diagnoses Diagnosis Hypothyroidism, unspecified type DM type 2 nursing care encounter (HCC) Type II or unspecified type diabetes mellitus without mention of complication, not stated as uncontrolled Type 2 diabetes mellitus with hemoglobin A1c goal of less than 8.0% (HCC) Pure hypercholesterolemia Vitamin D deficiency Unspecified vitamin D deficiency documented in this encounter Advance Directives Latest Code Status on File Code Status Date Activated Date Inactivated Comments Full Code 07/23/2018 11:45 AM 07/24/2018 4:27 PM This o rder reflects the patients wishes and were consensually agreed upon. Care Teams Drug Purchaser Relationship Specialty Start Date End Date Oseas Macdonald III, MD [address] [place] [address] PCP - General Family Medicine 06/04/15 documented as of this encounter
--- OUTSIDE RECORDS SUMMARY | 2023-07-31 11:45 | External Medical Summary | Summary of Care ---
Author Name Unknown Organization [facility] Address [address] [place] [address] Phone [phone] Care Team Providers Care Visual Basic Programmer Name Role Phone Renae MEDINA MD, Oseas Singh Primary Care Provider [phone] Reason for Referral * Evaluate & Treat - Unlimited Visits (Within 30 days (routine)) - Pending Review Specialty Diagnoses / Procedures Referred By Jayesh bee Referred To Contact Plastic Surgery Diagnoses Skin abnormality Maribel Andujar PA-C [address] [place] [id number] Referral ID Status Reason Start Date Expiration Date Visits Requested Visits Authorized [id number] Pending Review Specialty Services Required 02/01/[phone] Question Answer Referral Priority Within 30 days (routine) What condition is the patient being seen for? Reconstruction post disease/trauma Comments Current Patient BMI: Body mass index is 28.15 kg/m. Reason for Visit * Reason Comments Follow Up Skin on nose Encounter Details Date Type Department Care Team Description 02/01/2023 Office Visit Family Practice [facility] [address] [place] [id number] Maribel Andujar PA-C [address] [place] [address] [id number] Skin abnormality*; Impacted cerumen of left ear; Type 2 diabetes mellitus with hemoglobin A1c goal of less than 8.0% (HCC); Dementia without behavioral disturbance (HCC) Allergies Active Allergy Reactions Severity Noted [...] 100 Cap 3 01/25/2018 Active MEDICAL INSTRUCTIONS [facility]-for monitoring of med. [...] MEAL 90 Tablet 3 06/07/2022 Active Accu-Chek Brianna Plus In Vitro Strip [...] mRNA, LNP-s, No Pre serve, 2-Dose Series ([employer]) 07/30/2021,11/11/2020,10/21/2020 DT - Diptheria/Tetanus (PEDS) 06/04/2015 Pneumococcal [...] Sign Reading Time Taken Comments Blood Pressure 140/74 02/01/2023 2:13 PM EDT Pulse 93 02/01/2023 2:13 PM EDT Temperature 36.9 C (98.5 F) 02/01/2023 2:13 PM ED T Respiratory Rate 16 02/01/2023 2:13 PM EDT Oxygen Saturation 95% 02/01/2023 2:13 PM EDT Inhaled Oxygen Concentration - - Weight 67.6 kg (149 lb) 02/01/2023 2:13 PM EDT Height 154.9 cm (5' 1") 02/01/2023 2:13 PM EDT Body Mass Index 28.15 02/01/2023 2:13 PM EDT documented in this [...] as of this encounter Progress Notes * ELOISE Montilla - 02/01/2023 3:10 PM EDT Irrigation Solution: Up to 200 ml of solution may be instilled with one Procedure Solution Used: Water 180 ml/ Hydrogen Peroxide 20 ml (Mixed) Ear(s) Irrigated: Left Response: Particulate Returned Provider was notified when lavage is complete for re-examination of ear ELOISE Montilla * Maribel Andujar PA-C - 02/01/2023 2:38 PM EDT Images from the original note were not included. History of Present Illness Mike Orona is a 67 year old female that presents for Follow Up (Skin on nose) Patient is a 67 year old female who presents with an abnormality of her nose. She has fallen after a stroke and another time. Hit her face and needed stitches. Since she has had an extra flap of skin. Clogged left ear Physical Exam Vitals: 02/01/23 1413 Temp: 36.9 C (98.5 F) Pulse: 93 Resp: 16 SpO2: 95% BP: 140/74 BMI: 28.17 BP Readings from Last 3 Encounters: 02/01/23 140/74 11/29/22 142/70 10/27/22 120/74 Wt Readings from Last 3 Encounters: 02/01/23 67.6 kg (149 lb) 11/29/22 69.7 kg (153 lb 9.6 oz) 10/27/22 70.1 kg (154 lb 9.6 oz) General: alert, healthy, no distress, well nourished, well developed, comfortable and cooperative Head: Normocephalic, No masses, lesions, tenderness or abnormalities Eye Exam: PERRLA, extraocular movements intact, conjunctiva are pink and non- injected, sclera clear Ears: External ears normal, Canals clear, R TM normal, L TM not visualized secondary to cerumen Nose: no mucosal erythema, no mucosal edema, no purulent discharge, thickened tissue area over bridge of nose Oropharynx: no exudate, no erythema, lips, buccal mucosa, and tongue normal and mucous membranes are moist Neck: supple, no adenopathy, no bruits, thyroid normal size, non-tender, without nodularity Lungs: chest symmetric with normal AP diameter, no chest deformities noted, normal respiratory rateand rhythm, no chest wall tenderness, diaphragmatic excursion normal, lungs clear to auscultation I have reviewed the following results: None Assessment and Plan Skin abnormality (Primary) - PLASTIC SURGERY REFERRAL OP Impacted cerumen of left ear - REMOVAL IMPACTED CERUMEN IRRIGATION/LAVAGE, UNILAT Type 2 diabetes mellitus with hemoglobin A1c goal of less than 8.0% (HCC) Dementia without behavioral disturbance ([facility]) Check-out note: Schedule plastic surgery Wrap-Up Time: I spent a total of 20-29 minutes (exact time 23 mins) on the date of service in preparation, delivery, and documentation of the care provided to Mike Orona excluding any time spent in the performance of separately billed services. documented in this encounter Nursing Notes * ELOISE Montilla - 02/01/2023 2:12 PM EDT Mike Orona 67 year old female is here for a follow up of the extra skin on the bridge of hernose. Her caregiver Marline accompanies here. documented in this encounter Plan of Treatment Upcoming Encounters Date Type Specialty Care Team Description 02/12/2023 Office Visit Family Medicine Jo Flores PA-C [address] [place] [address] 04/12/2023 Telemedicine Endocrinology Tiffany Iniguez PA-C [address] [place] [address] 07/10/2023 Imaging Radiology 09/20/2023 Office Visit Rheumatology Bert Osborne MD [address] [facility] [place] [address] Scheduled Orders Name Type Priority Associated Diagnoses Orde r Schedule REMOVAL IMPACTED CERUMEN IRRIGATION/LAVAGE, UNILAT Procedures Routine Impacted cerumen of left ear Ordered: 02/01/2023 Scheduled Procedures Name Priority Associated Diagnoses Date/Ti me COLONOSCOPY FLEXIBLE PROXIMAL DIAGNOSTIC Recall Screen for colon cancer Scheduled Referrals Name Type Priority Associated Diagnoses Orde r Schedule PLASTIC SURGERY REFERRAL OP Referral Within 30 days (routine) Skin abnormality Ordered: 02/01/2023 Health Maintenance Due Date Last Done Comments Alpha-1 Antitrypsin 1973 Cologuard 2000 Sigmoidoscopy 2000 Fecal Occult Blood Test 05/19/2020 05/19/20, 09/11/2016, 09/17/2008, Additional history exists COVID-19 Vaccine (4 - Pfizer series) 09/24/2021 07/30/2021, 11/11/2020, 10/21/2020 DIABETES-FOOT EXAM 01/27/2023 01/27/2022, 0 07/26/2020, 05/14/2019, Additional history exists Influenza Vaccine (FLU shot) (#1) 2023 07/04/2022, 04/20/2021, 04/26/2020, Additional history exists HbA1c 04/14/2023 10/13/2022, 12/07/2021, 01/27/2022, Additional history exists Depression Screening, Annual [...] 11/08/2010 LUNG CANCER SCREENING - USE SMARTSET [id number] Completed 11/16/2022, 11/10/2021, 10/20/2020, Additional history exists [...] as of this encounter Visit Diagnoses Diagnosis Skin abnormality- Primary Unspecified congenital anomaly of the integument Impacted cerumen of left ear Impacted cerumen Type 2 diabetes mellitus with hemoglobin A1c goal of less than 8.0% (HCC) Dementia without behavioral disturbance (HCC) Dementia, unspecified, without behavioral disturbance documented in this encounter Advance Directives Latest Code Status on File Code Status Date Activated Date Inactivated Comments Full Code 07/23/2018 11:45 AM 07/24/2018 4:27 PM This o rder reflects the patients wishes and were consensually agreed upon. Care Teams Visual Basic Programmer Relationship Specialty Start Date End Date Oseas Macdonald III, MD [address] [facility], [place] [id number] PCP - General Family Medicine 06/04/15 documented as of this encounter
--- OUTSIDE RECORDS SUMMARY | 2023-07-31 11:45 | External Medical Summary ---
Author Name Unknown Address Unknown Organization [id number]:[facility] [place] [address] [place] [address] Laboratory Report Ordering Provider Test Date Status NATHANIEL PICHARDO 02/20/2023 11:18:16 Final Deficient: <20 ng/mL
Ins ufficient: 20-29 ng/mL
Recommended/Optimum:30-50 ng/mL

Vitamin D intoxication is rare. If suspicious of Vitamin D toxicity, evaluation of serum Calcium and PTH is recommended. Observation Date Value Abnormality Reference (Units ) Status 25-OH Vitamin D total 02/20/2023 11:18:16 69 >19 (ng/mL) Final Performing Location [facility] [place] [address] [place] [place] [address]
--- OUTSIDE RECORDS SUMMARY | 2023-07-31 11:45 | External Medical Summary | Summary of Care ---
Author Name Unknown Organization [facility] Address [address] [place] [address] Phone [phone] Care Team Providers Care Blending Tank Helper Name Role Phone Renae MEDINA MD, Oseas Singh Primary Care Provider [phone] Encounter Details Date Type Department Care Team Description 02/07/2023 Telephone Plastic Surgery, [place] [address], [place] [id number] Services, Scheduling [address] [place] [address] Allergies Active Allergy Reactions Severity Noted Date Comments Clarithromycin 05/09/2010 Confusion, "buzzing sound in head" documented as of this encounter (statuses as of 02/07/2023) Medications Medication Sig Dispensed Refills Start Date [...] as of this encounter (statuses as of 02/07/2023) Active Problems Problem Noted Date Subclavian arterial [...] as of this encounter (statuses as of 02/07/2023) Resolved Problems Problem Noted Date Resolved Date [...] as of this encounter (statuses as of 02/07/2023) Immunizations Name Administration Dates Next Due COVID-19 [...] Miscellaneous Notes * Telephone Encounter - FRENCH Markham - 02/07/2023 11:11 AM EDT pts caregiver calling states that she leave at 4 and Mike needs something between 11-2 if she has to take her to [place] as she is only with pt from 10-4 Please advise documented in this encounter Plan of Treatment Upcoming Encounters Date Type Specialty Care Team Description 02/12/2023 Office Visit Family Medicine Jo Flores PA-C [address] [place] [address] 04/12/2023 Telemedicine Endocrinology Tiffany Iniguez PA-C [address] [place] [address] 07/10/2023 Imaging Radiology 09/20/2023 Office Visit Rheumatology Bert Osborne MD [address]} [facility], [place] [address] Scheduled Procedures Name Priority Associated Diagnoses Date/Ti [...] 10/28/2020, Additional history exists TSH 12/15/2023 12/14/2022, /07/2022, 07/05/2022, Additional history exists DIABETES-EYE EXAM 12/21/2023 [...] 11/08/2010 LUNG CANCER SCREENING - USE SMARTSET [id number] Completed 11/16/2022, 11/10/2021, 10/20/2020, Additional history exists [...] and were consensually agreed upon. Care Teams Blending Tank Helper Relationship Specialty Start Date End Date Oseas Macdonald III, MD [address] [place] [address] [place] [address] PCP - General Family Medicine 06/04/15 documented as of this encounter
--- OUTSIDE RECORDS SUMMARY | 2023-07-31 11:45 | External Medical Summary ---
Author Name Unknown Address Unknown Organization K01:[facility]AT[facility] - [address] [facility] [address] Laboratory Report Ordering Provider Test Date Status NATHANIEL PICHARDO 02/20/2023 11:18:16 Final Observation Date Value Abnormality Reference (Units ) Status T4, Free 02/20/2023 11:18:16 1.4 0.9-1.7 (n g/dL) Final Performing Location [facility] - [address] [facility] [address]
--- OUTSIDE RECORDS SUMMARY | 2023-07-31 11:45 | External Medical Summary | Summary of Care ---
Author Name Unknown Organization [facility] Address [address] [place] [address] Phone [phone] Care Team Providers Care Practice Assistant Name Role Phone Renae MEDINA MD, Oseas Singh Primary Care Provider [phone] Reason for Visit * Evaluate & Treat - Unlimited Visits (Within 30 days (routine)) - Pending Review Specialty Diagnoses / Procedures Referred By Jayesh apodaca Referred To Contact Plastic Surgery Diagnoses Skin abnormality Maribel Andujar PA-C [address] [place] [address] Referral ID Status Reason Start Date Expiration Date Visits Requested Visits Authorized [id number] Pending Review Specialty Services Required 02/01/[phone] Encounter Details Date Type Department Care Team Description 02/08/2023 [facility] [address] [place], [place] [id number] Mervat Norton PA-C [address], [place] [phone] Scar conditions and fibrosis of skin* Allergies Active Allergy Reactions Severity Noted Date Comments Clarithromycin 05/09/2010 Confusion, "buzzing sound in head" documented as of this encounter (statuses as of 02/08/2023) Medications Medication Sig Dispensed Refills Start Date [...] 100 Cap 3 01/25/2018 Active MEDICAL INSTRUCTIONS Alf-for monitoring of med. compliance, filling of med. [...] DX E11.9 300 Strip 3 08/04/2022 Active CASTTTouch Verio w/Device Kit Use up to 4 times a day E11.9 1 Kit 0 08/15/2022 Active OneTouch Verio In Vitro Strip (Glucose Blood) Use as directed 3 times a day E11.9 100 Strip 11 08/15/2022 Active CASTTTouch UltraSoft Lancets Use as directed three times [...] as of this encounter (statuses as of 02/08/2023) Active Problems Problem Noted Date Subclavian arterial [...] 06/18/2017 Family history of breast cancer in [place] 11/17/2015 Pure hypercholesterolemia 04/20/2014 Scleroderma, limited [...] as of this encounter (statuses as of 02/08/2023) Resolved Problems Problem Noted Date Resolved Date [...] as of this encounter (statuses as of 02/08/2023) Immunizations Name Administration Dates Next Due COVID-19 mRNA, LNP-s, No Pre serve, 2-Dose Series (SHEEX) 07/30/2021,11/11/2020,10/21/2020 DT - Diptheria/Tetanus (PEDS) 06/04/2015 Pneumococcal [...] as of this encounter Progress Notes * Mervat Norton PA-C - 02/08/2023 11:03 AM EDT Patient location: HOME. I was in a hospital or clinic location. After connecting through televideo,patient was verified with two unique identifiers. 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 Methods to assure confidentiality were taken. Patient acknowledged consent and understanding of pr ivacy and security of the Telemedicine visit. The patient agreed to participate. PLASTIC SURGERY CONSULTATION 02/08/2023 HPI: Patient is a 67 year old female who presents for evaluation of problematic scar along her nasal bridge. She is accompanied by her caregiver. Pt's injury occurred from a fall in September 2017. Nasallaceration was repaired in the ED at [facility]. The repair left her with a prominence of her nasal bridge which makes it difficult for her to wear glasses. She states the area also causes discomfort. Of note, she has been evaluated by Dr. Allan in 2017 and 2019 for the same problem. Both times, he discussed repair in the OR (hx of dementia, likely unable to tolerate in the procedure room) withdebulking of the superior nasal dorsum as well as release of the medial canthus with Z-plasty. Pt does not recall why surgery was canceled. ALLERGIES: Clarithromycin MEDICATIONS: Current Outpatient Medications Medication Sig Dispense Refill aspirin 81 MG chewable tablet Take 1 Tablet by mouth in the morning. With food.. 100 Tab 5 Cholecalciferol (VITAMIN D3) 1000 units CAPS Take 1 Capsule by mouth in the morning. Not sure of strenght . acetaminophen (TYLENOL) 500 MG Tablet Take 1 Tablet by mouth every 4 hours as needed for Pain, Mild. Albuterol Sulfate 108 (90 Base) MCG/ACT Inhalation Aerosol Powder Breath Activated Inhale by mouth. NEEDED Docusate Calcium 240 MG CAPS Take 1 Cap by mouth daily as needed. 100 Cap 3 MEDICAL INSTRUCTIONS Alf-for monitoring of med. compliance, filling of med. dispenser, and vital signs. 2 hrs for week one, 1 hr weekly on going. 1 Each 1 Lancet Devices (ACCU-CHEK SOFTCLIX LANCET DEV) MISC Twice daily DX: E11.9 1 Each 11 Blood Glucose Monitoring Suppl (ACCU-CHEK BRIANNA PLUS) w/Device KIT Test blood sugar 3 times daily as directed. E11.9 1 Kit 0 Blood Glucose Monitoring Suppl (ACCU-CHEK BRIANNA) JORGE Use up to 4 times daily 1 Device 0 Bisacodyl 5 MG Oral Tablet Delayed Release (DULCOLAX) Take 1 Tablet by mouth as needed. Accu-Chek Softclix Lancets TEST BLOOD SUGAR 3 TIMES DAILY. DX:E11.9 300 Each 3 rOPINIRole HCl 0.5 MG Oral Tablet (Requip) TAKE 1 TABLET BY MOUTH EVERY DAY FOR RESTLESS LEGS 90 Tablet 11 Donepezil HCl 10 MG Oral Tablet (Aricept) TAKE 1 TABLET BY MOUTH IN THE EVENING WITH THE LARGEST MEAL. 90 Tablet 11 Fluticasone Propionate 50 MCG/ACT Nasal Suspension (Flonase) ADMINISTER 2 SPRAYS INTO EACH NOSTRIL EVERY DAY 48 mL 3 metFORMIN HCl ER 500 MG Oral Tablet Extended Release 24 Hour (Glucophage XR) TAKE 2 TABLETS BY MOUTH TWICE A DAY WITH MORNING AND EVENING MEALS 360 Tablet 2 Pantoprazole Sodium 40 MG Oral Tablet Delayed Release (Protonix) TAKE 1 TABLET BY MOUTH EVERY DAY 30 MINUTES BEFORE 1ST MEAL 90 Tablet 3 Accu-Chek Brianna Plus In Vitro Strip (Glucose Blood) USE DIRECTED 3 TIMES A DAY. DX E11.9 300Strip 3 OneTouch Verio w/Device Kit Use up to 4 times a day E11.9 1 Kit 0 OneTouch Verio In Vitro Strip (Glucose Blood) Use as directed 3 times a day E11.9 100 Strip 11 OneTouch UltraSoft Lancets Use as directed three times a day before meals. Use as directed 3 times a day. 100 Each 3 Mirtazapine 30 MG Oral Tablet (Remeron) TAKE 1 TABLET BY MOUTH EVERYDAY AT BEDTIME 90 Tablet 1 Losartan Potassium 25 MG Oral Tablet (Cozaar) TAKE 1/2 TABLET BY MOUTH EVERY DAY 45 Tablet 1 Ferrous Sulfate 325 (65 Fe) MG Oral Tablet (Feosol) TAKE 2 TABLETS BY MOUTH EVERY DAY WITH BREAKFAST 180 Tablet 1 traZODone HCl 50 MG Oral Tablet (Desyrel) TAKE 1 TABLET BY MOUTH EVERY DAY AT BEDTIME [id number] Tablet 1 Venlafaxine HCl ER 75 MG Oral Capsule Extended Release 24 Hour (Effexor XR) TAKE 1 CAPSULE BY MOUTH DAILY. DO NOT CUT, CRUSH, OR CHEW 90 Capsule 1 Ezetimibe 10 MG Oral Tablet (Zetia) TAKE 1 TABLET BY MOUTH EVERY DAY 90 Tablet 0 Gabapentin 300 MG Oral Capsule (Neurontin) Take 1 Capsule by mouth in the morning and 1 Capsulein the evening. 90 Capsule 5 Levothyroxine Sodium 75 MCG Oral Tablet (Levoxyl) Take 1 Tablet by mouth daily first thing in the morning. (at least 30 min prior to breakfast or other meds) 90 Tablet 1 Trulicity 0.75 MG/0.5ML Subcutaneous Solution Pen-injector (Dulaglutide) Inject 0.75 mg under the skin once a week. 2 mL 6 Clopidogrel Bisulfate 75 MG Oral Tablet (pLAVix) TAKE 1 TABLET BY MOUTH EVERY DAY 90 Tablet 1 Atorvastatin Calcium 80 MG Oral Tablet (Lipitor) TAKE 1 TABLET BY MOUTH EVERY DAY 90 Tablet 3 Insulin Glargine Solostar 100 UNIT/ML Subcutaneous Solution Pen-injector (Basaglar KwikPen) INJECT 24 UNITS SUBCUTANEOUSLY DAILY 45 mL 3 BD Pen Needle Mini U/F 31G X 5 MM (Insulin Pen Needle) USE ONCE DAILY WITH LANTUS SOLOSTAR DIRECTED. DX E11.9 100 Each 3 No current facility-administered medications for this visit. PROBLEM LIST: Patient Active Problem List Diagnosis Code Systemic sclerosis ([facility]) M34.9 Myalgia and myositis [id number] Esophagitis K20.90 Hypothyroidism E03.9 Depression F32.A anxiety F41.1 ADVANCE DIRECTIVE INFORMATION Encounter for long-term (current) use of medications Z79.899 CREST syndrome (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) E11.51 Other emphysema ([facility]) J43.8 Obstructive lung disease ([facility]) J44.9 Unspecified mood (affective) disorder (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) F03.90 Type 2 diabetes mellitus with hemoglobin A1c goal of less than 8.0% (HCC) E11.9 Undifferentiated connective tissue disease (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) I77.1 PMH: Past Medical History: Diagnosis Date Benign neoplasm of colon 11/05/2009 polyps x2 normal and hyperplastic polyp repeat 3-5 yrs Diabetes mellitus (HCC) Gastroparesis 08/24/10 GERD (gastroesophageal reflux disease) Hypothyroidism Myalgia and myositis Systemic sclerosis (HCC) CREST Transaminitis Urinary urgency PSH: Past Surgical History: Procedure Laterality Date COLONOSCOPY 2004 along with EGD COLONOSCOPY W/ BIOPSY (RECTUM) 11/05/2009 polyps x2 normal and hyperplastic polyp repeat 3-5 yrs COLONOSCOPY, DIAGNOSTIC (RECTUM) 11/25/2015 normal, repeat 10 yrs/COLONOSCOPY FLEXIBLE PROXIMAL DIAGNOSTIC performed by Britta Starkey DO at ENDOSCOPY [facility] COLONOSCOPY, DIAGNOSTIC (RECTUM) 10/03/2016 hyperplastic polyps, repeat 3-4 mo/COLONOSCOPY FLEXIBLE PROXIMAL DIAGNOSTIC performed by Sagrario Carson DO at ENDOSCOPY [facility] COLONOSCOPY, DIAGNOSTIC (RECTUM) 01/05/2017 normal, repeat 10 yrs/COLONOSCOPY FLEXIBLE PROXIMAL DIAGNOSTIC performed by Britta Starkey DO at [facility]COPY [facility] COLONOSCOPY, DIAGNOSTIC (RECTUM) 05/26/2019 normal-internal hemorrhoids/Colonoscopy/[place] COLONOSCOPY, DIAGNOSTIC (RECTUM) 10/05/2020 normal, repeat 10 yrs / COLONOSCOPY FLEXIBLE PROXIMAL DIAGNOSTIC performed by Sagrario Carson DO at ENDOSCOPY [facility] DEXA SCAN/BONE MINERAL AXIAL 10/22/2009 stable, repeat 5 years EGD, FLEXIBLE, DIAGNOSTIC 10/03/2016 inflammation on bx/ESOPHAGOGASTRODUODENOSCOPY (EGD), FLEXIBLE, TRANSORAL, DIAGNOSTIC performed by Sagrario Carson DO at [facility]COPY [facility] EGD, FLEXIBLE, DIAGNOSTIC 05/26/2019 gastritis-EGD/[place] EGD, FLEXIBLE, W/BIOPSY 08/30/[address] INFORMATION 1999 facial fracture repair INFORMATION 2004 or 6 ?? 2 sesamoid bone removals left foot IR STENT PLACEMENT, INITIAL ARTERY Left 07/23/2018 NON LOWER EXTREMITY OR CAROTID STENT REVASCULARIZATION WITH RADIOLOGIC SUPERVISION AND INTERPRETATION performed by Sudheer Prado MD at [facility] MAMMOGRAM SCREENING BILATERAL 11/03/2010 cat. 1, repeat in [address] [place] [address] GASTRIC EMPTYING STUDY SOLID 08/24/2010 [facility] T 1/2 =142 minutes OPEN BRACHIAL ARTERY EXPOSURE FOR ENDOVASCULAR PROSTHESIS, UNILAT Left 07/23/2018 OPEN BRACHIAL ARTERY EXPOSURE FOR ENDOVASCULAR AORTIC PROSTHESIS performed [place] Sudheer Prado [place] [facility] [place] 1977 right ovary removed REMOVAL OF APPENDIX 01/31/2005 Appendectomy at [facility] Dr. Reyes REPAIR OF [place], ONE TOE Right 2-5 SPINAL FUSION, 4-7 VERT, ANTERIOR 12/16/2012 [facility] US ENDOSCOPIC 09/05/2019 inflammatory or reactive lymph nodes / [facility] FAMILY HISTORY: Family History Problem Relation Age of Onset Cancer Mother 63 breast and uterine, smoker Breast Cancer Mother 63 Diabetes Mother Gastro-intestinal disorder Mother Liver disease unknown specifics Lung Disorder Father smoker Cancer Father smoker, lung CA Heart Disorder Grandfather (Paternal) Lung Disorder Aunt (Unspecified) Diabetes Aunt (Unspecified) WOUND HEALING RISK FACTORS: SOCIAL HISTORY Social History Tobacco Use Smoking status: Former Packs/day: 1.00 Years: 32.00 Pack years: 32.00 Types: Cigarettes Quit date: 06/10/2011 Years since quittin.6 Smokeless tobacco: Never Substance Use Topics Alcohol use: Yes Alcohol/week: 3.3 standard drinks Types: 4 1.5 oz of liquor per week Comment: 1 drink every 2 weeks Vaping/E-Cigarette Use Vaping/E-Cigarette Use Never Assessed Vaping/E-Cigarette Substances Nicotine No Other No Flavoring No THC No Cannabidiol (CBD) No Vaping/E-Cigarette Devices Disposable No Pre-filled or Refillable Cartridge No Refillable Tank No Pre-filled Pod No Diabetes: Oral agents Chronic Steroid Use:No ROS EXAM: (+) dementia, (+) DM - Hgb A1C 6.4, (+) hx of stroke on ASA and plavix EXAM: LMP 10/15/1991 limited via telemed The patient is a well-developed, well-nourished 67 year old female in no acute distress. HEENT: Head is normocephalic and atraumatic. Per exam on 05/19/[address] Allan, "Examination of the nose reveals a trapdoor type scar at thenasal bridge just below the glabellar area. It measures approximately 2 x 1 cm and is quite full. It is understandable that this makes it difficult for patient to wear glasses. Just adjacent to this at the medial right canthus is a webbing. I called attention to this and patient feels also that this is problematic." Patient is alert IMPRESSION: problematic scar at the superior nasal dorsum and the medial right canthus PLAN: - Again discussed surgery that was planned in 2018. [address] Allan is retiring - will review with Dr. Lovelace - Discussed need to hold ASA/plavix pre op. Will review with pt's PCP. If unable to hold, advised risk of surgery will likely outweigh benefits - Photos previously taken - RTC for pre op H&P once/if surgery is scheduled - The patient was instructed to call if there are any changes, questions, or concerns. I spent a total of 30-39 minutes (exact time 30 mins) on the date of service in preparation, delivery, and documentation of the care provided to Mike Orona excluding any time spent in the performance of separately billed services. Mervat Norton PA-C 02/08/2023 documented in this encounter Plan of Treatment Upcoming Encounters Date Type Specialty Care Team Description 02/12/2023 Office Visit Family Medicine Jo Flores PA-C [address] [place] [address] 04/12/2023 Telemedicine Endocrinology Tiffany Iniguez PA-C [address] [place] [address] 07/10/2023 Imaging Radiology 09/20/2023 Office Visit Rheumatology Bert Osborne MD [address] [place] [address] Scheduled Procedures Name Priority Associated Diagnoses Date/Ti [...] 11/08/2010 LUNG CANCER SCREENING - USE SMARTSET 03396 Completed 11/16/2022, 11/10/2021, 10/20/2020, Additional history exists [...] as of this encounter Visit Diagnoses Diagnosis Scar conditions and fibrosis of skin- Primary Scar condition and fibrosis of skin documented in this encounter Advance Directives Latest Code Status on File Code Status Date Activated Date Inactivated Comments Full Code 07/23/2018 11:45 AM 07/24/2018 4:27 PM This o rder reflects the patients wishes and were consensually agreed upon. Care Teams Practice Assistant Relationship Specialty Start Date End Date Oseas Macdonald III, MD [address] [place] [address] PCP - General Family Medicine 06/04/15 documented as of this encounter
--- OUTSIDE RECORDS SUMMARY | 2023-07-31 11:45 | External Medical Summary ---
Author Name Unknown Address Unknown Organization K09:[facility] - [address] [place] [address] Laboratory Report Ordering Provider Test Date Status NATHANIEL PICHARDO 02/20/2023 11:18:16 Final Observation Date Value Abnormality Reference (Units ) Status BUN 02/20/2023 11:18:16 15 6-20 (mg/dL) Final Creatinine 02/20/2023 11:18:16 0.9 0.5-1.0 (mg/dL) Final Glomerular filtration rate/1.73 sq M.predicted [Volume Rate/Area] in Serum, Plasma or Blood by Creatinine-based formula (CKD-EPI) 02/20/2023 11:18:16 67 >=60 (mL/min) Final eGFR is calculated based on the CKD-EPI 2020 equation SODIUM 02/20/2023 11:18:16 140 135-146 (m mol/L) Final Potassium 02/20/2023 11:18:16 4.5 3.5-5.1 (m mol/L) Final Cl 02/20/2023 11:18:16 102 98-107 (mm ol/L) Final CO2 02/20/2023 11:18:16 28 22-32 (mmo l/L) Final Anion gap 02/20/2023 11:18:16 10 7-15 (mmol /L) Final Glucose 02/20/2023 11:18:16 84 70-120 (mg /dL) Final Albumin 02/20/2023 11:18:16 4.4 3.8-5.0 (g /dL) Final AST (Aspartate aminotransferase) 02/20/2023 11:18:16 31 10-35 (U/L) Final Alk Phos 02/20/2023 11:18:16 97 35-130 (U/ L) Final Bilirubin, Total 02/20/2023 11:18:16 0.3 <=1 .2 (mg/dL) Final Calcium 02/20/2023 11:18:16 9.9 8.4-10.2 ( mg/dL) Final Protein 02/20/2023 11:18:16 7.0 6.0-8.3 (g /dL) Final ALT (Alanine aminotransferase) 02/20/2023 11:18:16 30 10-35 (U/L) Final Performing Location [facility] [address] [place] [address]
--- OUTSIDE RECORDS SUMMARY | 2023-07-31 11:45 | External Medical Summary ---
Author Name Unknown Address Unknown Organization K01:LABORATORY [facility] - [address] [place] [address] Laboratory Report Ordering Provider Test Date Status NATHANIEL PICHARDO 02/20/2023 11:18:16 Final Observation Date Value Abnormality Reference (Units ) Status Triglyceride 02/20/2023 11:18:16 103 <=174 ( mg/dL) Final Triglyceride Reference Range s (mg/dL):
<150 Acceptable
150-174 Borderline high
175-499 High
>=500 Very high Cholesterol 02/20/2023 11:18:16 94 <200 (mg /dL) Final Total Cholesterol Reference Ranges (mg/dL):
<200 Desirable
200-239 Borderline high
>=240 High HDL 02/20/2023 11:18:16 31 Below low normal >49 (mg/dL) Final HDL Cholesterol Reference Ra nges (mg/dL):
>=60 High (Desirable)
<50 Low (Undesirable) For Females
<40 Low (Undesirable) For Males NON-HDL CHOLESTEROL 02/20/2023 11:18:16 63 <=159 (mg/dL) Final Non-HDL Cholesterol Referenc e Range (mg/dL):
<100 Target level for high risk ASCVD patient
<130 Optimal for general population
130-159 Near optimal for general population
160-189 Borderline High
190-219 High
>=220 Very High LDL, (calculated) 02/20/2023 11:18:16 42 <= 129 (mg/dL) Final LDL Cholesterol Reference Ra nges (mg/dL):
<70 Target level for high risk ASCVD patient
<100 Optimal for general population
100-129 Near optimal for general population
130-159 Borderline high
160-189 High
>=190 Very high Performing Location LABORATORY [facility] - [address] [facility] [address]
--- OUTSIDE RECORDS SUMMARY | 2023-07-31 11:45 | External Medical Summary ---
Author Name Unknown Address Unknown Organization K01:[facility] - [address] [facility] [address] Laboratory Report Ordering Provider Test Date Status NATHANIEL PICHARDO 02/20/2023 11:18:16 Final Observation Date Value Abnormality Reference (Units ) Status TSH 02/20/2023 11:18:16 0.01 Below low normal 0.2 7-4.20 (uIU/mL) Final Performing Location [facility] [place] [address] [facility] [address]
--- OUTSIDE RECORDS SUMMARY | 2023-07-31 11:45 | External Medical Summary ---
Author Name Unknown Address Unknown Organization K01:LABORATORY [facility] - [address] [facility] [address] Laboratory Report Ordering Provider Test Date Status NATHANIEL PICHARDO 02/20/2023 11:18:16 Final Observation Date Value Abnormality Reference (Units ) Status HbA1C 02/20/2023 11:18:16 5.3 4.0-5.6 (% ) Final The use of HbA1c to monitor glycemic status is based on normal hemoglobin and HbA composition. This test should not be used in patients with abnormal hemoglobin that affects the half life of the red blood cell or the in vivo glycation rates. Glucose, estimated average 02/20/2023 11:18:16 105 <126 (mg/dL) Final Performing Location LABORATORY [facility] - [address] [facility] [address]
--- OUTSIDE RECORDS SUMMARY | 2023-07-31 11:45 | External Medical Summary | Summary of Care ---
Author Name Unknown Organization [facility] Address [address] [place] [address] Phone [phone] Care Team Providers Care Cloud Physicist Name Role Phone Renae MEDINA MD, John E Primary Care Provider [phone] Reason for Visit * Reason Comments eRx-Medication Refill Encounter Details Date Type Department Care Team Description 02/15/2023 Refill Family Practice [facility] [address] [facility] [place] [address] Rashaad Tran III, MD [address] [facility] [place] [address] Type 2 diabetes mellitus with hemoglobin A1c goal of less than 8.0% ([facility] Allergies Active Allergy Reactions Severity Noted Date Comments Clarithromycin 05/09/2010 Confusion, "buzzing sound in head" documented as of this encounter (statuses as of 02/15/2023) Medications Medication Sig Dispensed Refills Start Date [...] EVERY DAY 90 Tablet 3 3 Active Ezetimibe 10 MG Oral Tablet (Zetia)Indicatio ns:Type 2 diabetes mellitus with hemoglobin A1c goal of less than 8.0% (HCC) TAKE 1 TABLET BY MOUTH EVERY DAY 90 Tablet 0 3 02/16/20 23 Discontinued documented as of this encounter (statuses as of 02/15/2023) Active Problems Problem Noted Date Subclavian arterial [...] as of this encounter (statuses as of 02/15/2023) Resolved Problems Problem Noted Date Resolved Date [...] as of this encounter (statuses as of 02/15/2023) Immunizations Name Administration Dates Next Due COVID-19 mRNA, LNP-s, No Pre serve, 2-Dose Series (Playto) 07/30/2021,11/11/2020,10/21/2020 DT - Diptheria/Tetanus (PEDS) 06/04/2015 Pneumococcal [...] encounter Miscellaneous Notes * Telephone Encounter - Charlie Albarran RPh - 02/15/2023 12:31 PM EDTSigned Prescriptions: Disp Refills Ezetimibe 10 MG Oral Tablet (Zetia) 90 Tab*3 Sig: TAKE 1 TABLET BY MOUTH EVERY DAYAuthorizing Provider: RASHAAD TRAN III User: CHARLIE ALBARRAN documented in this encounter Plan of Treatment Upcoming Encounters Date Type Specialty Care Team Description 04/12/2023 Telemedicine Endocrinology Tiffany Iniguez PA-C [address] [place] [address] 05/15/2023 Office Visit Family Medicine Jo Flores PA-C [address] [place] [address] 07/10/2023 Imaging Radiology 09/20/2023 Office Visit Rheumatology OpCharlie husain MD [address] [place] [address] Scheduled Procedures Name Priority Associated Diagnoses Date/Ti [...] 11/08/2010 LUNG CANCER SCREENING - USE SMARTSET 36717 Completed 11/16/2022, 11/10/2021, 10/20/2020, Additional history exists [...] A1c goal of less than 8.0% (HCC) documented in this encounter Advance Directives Latest Code Status on File Code Status Date Activated Date Inactivated Comments Full Code 07/23/2018 11:45 AM 07/24/2018 4:27 PM This o rder reflects the patients wishes and were consensually agreed upon. Care Teams Cloud Physicist Relationship Specialty Start Date End Date Rashaad Tran III, MD [address] [place] [address], [place] [phone] PCP - General Family Medicine 06/04/15 documented as of this encounter
[2023-07-31 12:20] LABS: Appearance Urine Cloudy (Clear); Bacteria Urine Automated 1+ (Negative); Bilirubin Urine Negative (Negative); Blood Urine Trace (Negative); Color Urine Yellow; Glucose Urine UA Negative (Negative); Ketones Urine 1+ (Negative); Leukocyte Esterase Urine 2+ (Negative); Nitrite Urine Positive (Negative); Protein Urine Negative (Negative); RBC Urine Automated 0-4 /hpf (0-4); Specific Gravity Urine 1.022 (1.000-1.030); Urobilinogen Urine Negative (Negative); WBC Urine Automated >30 /hpf (0-5); pH Urine 5.5 (4.5-7.5)
[2023-07-31] MEDS ORDERED: cefTRIAXone SODIUM 2,000 MG/50 ML BAG IV STA (12:30)
[2023-07-31 12:33] LABS: Calcium Oxalate Crystals Urine Present (None Prsent)
--- NOTE | 2023-07-31 13:10 | History & Physical Report ---
Date of Service July 31, 2023 Assessment & Plan (1) Sepsis: (2) Urinary tract infection: (3) Generalized weakness: (4) Anemia: (5) Hypertension: (6) History of CVA with residual deficit: (7) CREST syndrome: (8) Hypothyroidism: (9) PVD (peripheral vascular disease): (10) DM type 2 (diabetes mellitus, type 2): (11) Carotid stenosis: (12) Mood disorder: Plan This is a 64-year-old female who has significant PMH of DM II on insulin, hx of CVA with residual aphasia/R sided weakness, carotid artery stenosis, L subclavian occlusion, HTN, HLD, COPD, Hypothyroidism, GERD, Scleroderma/CREST syn, Mood disorder, Depression with anxiety who presents to [facility] ED secondary to overall feeling weak x 2 days prior to arrival and was found to have sepsis 2/2 UTI. Sepsis Acute urinary tract infection Hypotensive and tachycardic initially, improved BP to 105/77 and HR 95 after 2L NSS. WBC 13.76K Continuing fluids at 125ml/hr given lactate elevated at 6 -> 5.8 to meet 30 mg/kg criteria, will need monitor for signs/sx cardiovascular overload, repeat lactate ordered @ 1700 Broaden abx to vanco/zosyn given sepsis criteria and elevated lactate MRSA swab pending Follow blood/urine cultures Weakness Acute on chronic right sided weakness in setting of infection, h/o significant CVA in the past with residual R sided weakness CT head with no acute intracranial abnormality identified. Large area of encephalomalacia within the left MCA territory compatible with chronic infarct(s), increased in size compared to the 2018 comparison. Expect this will improve with treatment of infection Fall precautions, PT/OT Anemia Hgb 7.9 today H/o anemia with variable baseline (most recently 11.8 in 10/05), on iron supplementation No acute signs of bleed, added FOBT Continue plavix for CVA and vascular disease as below Repeating iron studies, added B12 and folate AM labs given MCV of 102 Repeat H/H at 1700 History of CVA with residual deficit H/o L MCA stroke during attempted L SCA stenting. Has residual aphasia and R- sided weakness Stable. Continue plavix, statin DM type 2 (diabetes mellitus, type 2) A1c 5.3 in Feb 2023 Hold home PO meds Basal/bolus insulin per protocol while in-patient BSG checks AC HS Vascular disease H/o failed L SCA angioplasty /stent from brachial artery in Jul 2017 Continue plavix, statin Hypertension Hypotensive in setting of sepsis- hold losartan until BP improves Hypothyroidism Continue levothyroxine Mood disorder Continue Mirtazapine, trazodone, venlafaxine CREST syndrome Has some chronic skin lesions. Not on medications DVT Ppx: SCDs for now Code status: FULL PCP: Renae Dispo: Admitted to PCU. Plan to return home once medically stable. Patient seen in collaboration with Dr. Ruiz. Please see addendum. History of Present Illness Chief Complaint: Weakness, lethargy Primary Care Provider: Oseas Macdonald MD This is a 64-year-old female who has significant PMH of DM II on insulin, hx of CVA with residual aphasia/R sided weakness, carotid artery stenosis, L subclavian occlusion, HTN, HLD, COPD, Hypothyroidism, GERD, Scleroderma/CREST syn, Mood disorder, Depression with anxiety who presents to [facility] ED secondary to overall feeling weak x 2 days prior to arrival. Since Sunday, has had difficulty moving around and has had decreased appetite. Has baseline right sided weakness but has noted more profound weakness in setting of infection. Has not noticed any dysuria but has had increased urgency. Lives alone. Denies fever, chills, lightheadedness, chest pain, palpitations, shortness of breath, abdominal pain, nausea, vomiting, constipation or diarrhea. No melena or hematochezia. Allergies Allergy/AdvReac Type Severity Reaction Status Date / Time clarithromycin AdvReac Unknown FEEL WEIRD Verified 07/31/23 11:30 Home Medications Medication Instructions Recorded Confirmed Type atorvastatin 80 mg tablet 80 mg PO HS 07/14/18 07/31/23 History bisacodyl 5 mg tablet,delayed 5 mg PO HS PRN Constipation 07/14/18 07/31/23 History release (Dulcolax (bisacodyl)) docusate calcium 240 mg capsule 240 mg PO DAILY PRN Constipation 07/14/18 07/31/23 History (Stool Softener (docusate calcium)) donepezil 10 mg tablet 10 mg PO HS 07/14/18 07/31/23 History ezetimibe 10 mg tablet 10 mg PO QAM 07/14/18 07/31/23 History ferrous sulfate 325 mg (65 mg 650 mg PO QAM 07/14/18 07/31/23 History iron) tablet loratadine 10 mg tablet (Claritin) 10 mg PO HS PRN allergies 07/14/18 07/31/23 History losartan 25 mg tablet 12.5 mg PO QAM 07/14/18 07/31/23 History metformin 500 mg tablet,extended 1,000 mg PO BID 07/14/18 07/31/23 History release 24 hr mirtazapine 30 mg tablet 30 mg PO HS 07/14/18 07/31/23 History ropinirole 0.5 mg tablet 0.5 mg PO HS 07/14/18 07/31/23 History trazodone 50 mg tablet 50 mg PO HS PRN Pain 07/14/18 07/31/23 History venlafaxine 75 mg tablet 75 mg PO QAM 07/14/18 07/31/23 History insulin glargine 100 unit/mL (3 24 unit subcut QAM 05/12/19 07/31/23 History mL) subcutaneous pen (Basaglar KwikPen U-100 Insulin) clopidogrel 75 mg tablet (Plavix) 75 mg PO QAM 08/25/19 07/31/23 History dulaglutide 0.75 mg/0.5 mL 0.75 mg subcut WK 07/31/23 07/31/23 History subcutaneous pen injector (Trulicity) fluticasone propionate 50 2 spray intranasal DAILY 07/31/23 07/31/23 History mcg/actuation nasal spray,suspension gabapentin 300 mg capsule 300 mg PO BID 07/31/23 07/31/23 History levothyroxine 50 mcg tablet 50 mcg PO DAILY 07/31/23 07/31/23 History pantoprazole 40 mg tablet,delayed 40 mg PO QAM 07/31/23 07/31/23 History release Past Med/Surg History Medical History (Updated 07/31/23 @ 13:35 by Genna Kuo PA-C) Generalized weakness Generalized weakness Restless leg syndrome Hypertension Vascular disease Mood disorder History of CVA with residual deficit approx 7 yrs > H/o L MCA stroke during attempted L SCA stenting. Has residual dysphagia Gastroparesis Esophagitis Carotid stenosis Right carotid artery 70 to 90% stenosis of internal carotid, left carotid artery 50 to 69% Hyperlipidemia DJD (degenerative joint disease), lumbar DM type 2 (diabetes mellitus, type 2) IDDM Hypothyroidism PVD (peripheral vascular disease) CREST syndrome Anemia Surgical History History of cataract surgery left History of tooth extraction Hx of esophagogastroduodenoscopy Hx of colonoscopy H/O foot surgery right History of hysterectomy History of spinal fusion lumbar S/P appendectomy (10/11/12) Family History Mother Breast cancer Uterine cancer Father Lung cancer Emphysema/COPD Social History Smoking Status: Never smoker Second Hand Exposure: No; Do You Dip or Chew Tobacco: No; Hx Alcohol Use: No Hx Substance Use: No Preferred Language: Lao Communication Ability: Effective Auto Motor Mechanic Required: No Beliefs That Will Affect Care: None marital status: Single Current Living Situation: Alone How many Children do You have: 1 Feels Safe at Home: Yes Assistive Devices: Denture - Upper, Denture - Lower, Glasses and Walker Review of Systems Review of Systems: At least ten systems reviewed and negative except as noted in the HPI. Physical Exam Physical Exam: Please see Dr. Ruiz' addendum for physical exam. Results & Data Results & Data Vital Signs (Past 12 Hours) Vital Signs Temp Pulse Pulse Resp BP BP Pulse Ox 07/31/23 12:25 94 H 18 90/64 L 99 07/31/23 12:07 119 H 18 07/31/23 11:59 90/64 L 07/31/23 11:59 96 H 29 H 97 07/31/23 11:30 88 14 95 07/31/23 11:30 87/62 L 07/31/23 11:00 93 H 18 07/31/23 10:30 97 H 17 95 07/31/23 10:29 81/51 L 07/31/23 10:29 92 H 18 92 07/31/23 10:00 90 15 94 07/31/23 10:00 77/51 L 07/31/23 09:53 94/40 L 07/31/23 09:53 93 H 16 07/31/23 09:50 75/48 L 07/31/23 09:50 94 H 16 94 07/31/23 09:50 36.4 C L 92 H 20 94/40 L 95 07/31/23 09:45 91 H 07/31/23 09:43 94 H 18 O2 Del Method 07/31/23 12:25 Room Air 07/31/23 12:07 07/31/23 11:59 07/31/23 11:59 Room Air 07/31/23 11:30 07/31/23 11:30 07/31/23 11:00 07/31/23 10:30 07/31/23 10:29 07/31/23 10:29 07/31/23 10:00 07/31/23 10:00 07/31/23 09:53 07/31/23 09:53 07/31/23 09:50 07/31/23 09:50 07/31/23 09:50 Room Air 07/31/23 09:45 07/31/23 09:43 Laboratory Results Short CBC 07/31/23 Range/Units 09:43 WBC 13.76 H (4.8-10.8) K/ul Hgb 7.9 L (12.0-16.0) g/dl Hct 25.6 L (37.0-47.0) % Plt Count 404 H (130-400) K/uL BMP 07/31/23 09:43 Sodium 135 L Potassium 4.4 Chloride 99 Carbon Dioxide 25 BUN 28 H Creatinine 0.88 Glucose 107 H Calcium 8.9 Liver Function 07/31/23 Range/Units 09:43 Total Bilirubin 0.5 (0.2-1.0) mg/dl AST 26 (13-39) U/L ALT 22 (7-52) U/L Alkaline Phosphatase 62 (34-104) U/L Albumin 3.9 (3.4-5.0) gm/dl Urine 07/31/23 Range/Units 12:08 Urine Color Yellow Urine Appearance Cloudy A (Clear) Urine pH 5.5 (4.5-7.5) Ur Specific [place] 1.022 (1.000-1.030) Urine Protein Negative (Negative) Urine Glucose (UA) Negative (Negative) Diagnostic Findings Chest X-Ray 07/31/23 10:02 XR chest 1V portable HISTORY: Weakness COMPARISON: Chest 05/23/2019. FINDINGS: The lungs are clear. Cardiac silhouette is normal in size. No pleural effusions. No pneumothorax. Cervical spinal fusion hardware is again noted. IMPRESSION: No acute process. ACT 112: Negative or not required by law. Electronically signed by: Israel Mccracken M.D. 07/31/2023 10:42 AM Code Status & VTE Plan VTE Prophylaxis Plan VTE Prophylaxis will be ordered: Yes Supervising Physician Co-Signing Physician Notes I have seen and discussed the case with the collaborating VIRIDIANA. I agree with the above H&P. I have reviewed and confirmed the patients medical history, the findings on physical examination, and the patients diagnosis and treatment plan with Ayaan KEMP and agree with the information documented. In short, Ms. Orona is a 68 year old woman with history of L CVA c/b right hemiparesis and dysarthria who presented for concerns of weakness and being admitted for sepsis thought to be secondary to UTI. Patient reports urinary frequency and exacerbation of prior stroke symptoms, notably dysarthria/weakness. Patient reports poor po intake and increased lightheadness and dizziness. Denies chest pain, palpitations, vomiting, nausea, or other acute concerns. Endorses compliance with medications. Denies any signs of bleeding (no vomiting, normal stool). VS notable for hypotension to 90s SBP, tachycardia to 100s, afebrile and saturating well on room air. Labs notable for leukocytosis to 13.76, hgb to 7.9, lactate to 6.UA suspicious for infection, +nitrite, bacteria, WBC >30. Resp panel negative In ED received 2 L NS and CTX Physical Exam General: appears fatigued, weak; notable dysarthria--takes a minute for word finding HEENT: slight asymmetry notable with smile, right sided weakness (chronic per patient), PERRLA CV: Tachycardic, regular, no murmur RESP: poor effort, diminished breath sounds GI soft, NTND Neuro: CN II-XII otherwise intact with CNVII notable weakness/asymmetry with most notable with smile on right; cash specialist intact BLE, strength 5/5; right leg 3/5 strength, left leg 5/5 MSK: moving all extremities equally, no deformity, no edema A.P: Ms. Orona is being admitted for sepsis management, thought to be secondary to UTI at this time. Last ECHO in 2018 with G[facility]. Received 2L NS. Will continue with maintenance fluids given concern for compromise of respiratory status with further fluid bolusing. Patient reports marginal improvement at this time, but otherwise VS improving and responsive to fluids. #Sepsis 2/2 UTI likely -Otherwise usual state of health outside of urinary frequency; notable lactate to 6.0 on admission -Broaden ABX to vanc/zosyn; d/c with MRSA negative -Follow up infectious work up -Trend lactate -Continue IVF at this time #Weakness, c/f recrudescence of prior stroke #L CVA c/b right hemiparesis, dysarthria -progressive weakness x1 week -Order CT head -Resume plavix #Macrocytic anemia -denies any source of bleed -Repeat CBC -anemia studies -SCDs in interim until hgb trend stable Rest of plan as above
[2023-07-31 13:14] LABS: Base Excess VBG -0.9 mEq/L; HCO3 VBG 25 mmol/L; Oxygen Saturation VBG < 60.0 %; PCO2 VBG 46 mmHg (38-50); PO2 VBG 27 mmHg; pH VBG 7.34 (7.36-7.41)
--- NOTE | 2023-07-31 14:00 | CT Scan Report ---
CT head/brain wo con CLINICAL HISTORY: 68 years-old Female with weakness, h/o cva. Acute weakness with stroke like sympto ms TECHNIQUE: Multiple axial CT images of the head were obtained without contrast. A dose lowering tech nique was utilized adhering to the principles of ALARA. CT DOSE: 922.39 mGy.cm COMPARISON: 07/14/2018 FINDINGS: Study is mildly motion degraded. No acute intracranial hemorrhage, midline shift, intracranial mass, hydrocephalus, territorial ischemia or abnormal extra-axial collection. There is a large area of ence phalomalacia within left MCA territory related to chronic infarct which has increased in size compare d to the 2018 study with progressive associated left-sided wallerian degeneration. Involutional dixon es with white matter hypodensities suggestive of chronic microvascular ischemic disease. Ex vacuo marcial triculomegaly of the left lateral ventricle. The calvarium is intact. Prior bilateral lens repair. The paranasal sinuses, mastoid air cells, and m iddle ear cavities are clear. IMPRESSION: 1. No acute intracranial abnormality identified. 2. Large area of encephalomalacia within the left MCA territory compatible with chronic infarct(s), i ncreased in size compared to the 2018 comparison. ACT 112: Negative or not required by law. The above report was generated using voice recognition software. It may contain grammatical, syntax o r spelling errors. Electronically signed by: Shyam Gonzalez M.D. 07/31/2023 1:57 PM
[2023-07-31] MEDS ORDERED: SODIUM CHLORIDE 0.9% 1,000 ML IV SCH (14:15)
[2023-07-31] MEDS ORDERED: VANCOMYCIN CONSULT ACTIVE PRN (14:34)
[2023-07-31] MEDS ORDERED: PIPERACILLIN/TAZOBACTAM 4.5 GM/100 ML BAG IV ONE (15:00)
[2023-07-31] MEDS ORDERED: VANCOMYCIN HCL 1,500 MG in SODIUM CHLORIDE 0.9% 500 ML IV ONE (15:00)
[2023-07-31] MEDS ORDERED: GLUCAGON FOR INJ 1 MG VIAL SQ PRN (16:05)
[2023-07-31] MEDS ORDERED: GLUCOSE 40% GEL 15 GM TUBE PO PRN (16:05)
[2023-07-31] MEDS ORDERED: GLUCOSE 10 TAB/TUBE PO PRN (16:05)
[2023-07-31] MEDS ORDERED: ONDANSETRON INJ 2 MG/ML 2 ML VIAL IV PRN (16:05)
[2023-07-31] MEDS ORDERED: bisacodyL 5 MG TABEC PO PRN (16:05)
[2023-07-31] MEDS ORDERED: POLYETHYLENE (MIRALAX) 17 GM PACK PO PRN (16:05)
[2023-07-31] MEDS ORDERED: traZODone HCL 50 MG TAB PO PRN ×2 (16:05→21:33)
[2023-07-31] MEDS ORDERED: DEXTROSE 50% 50 ML SYRINGE IV PRN (16:05)
[2023-07-31] MEDS ORDERED: CARBOHYDRATES FOR HYPOGLYCEMIA PO PRN (16:05)
[2023-07-31] MEDS ORDERED: ACETAMINOPHEN 325 MG TAB PO PRN (16:05)
[2023-07-31] MEDS ORDERED: LORATADINE 10 MG TAB PO PRN (16:05)
[2023-07-31] MEDS ORDERED: DOCUSATE CALCIUM 240 MG CAPSULE PO PRN (16:05)
[2023-07-31] MEDS: INSULIN ASPART PER UNIT CHARGE SC SCH ×2 (16:29→20:56)
[2023-07-31 19:51] LABS: Hematocrit (blood only) 20.8 % (37.0-47.0); Hemoglobin 6.1 g/dl (12.0-16.0)
[2023-07-31] MEDS ORDERED: SODIUM CHLORIDE 0.9% 250 ML IV PRN (20:03)
--- NOTE | 2023-07-31 20:05 | Pharmacy Report ---
Pharmacy PK ABX Note - Date of Service July 31, 2023 - Assessment and Plan Assessment 68 year old F started on vancomycin and zosyn empirically for possible UTI/sepsis. PMHx significant for DM2, CVA with residual weakness, scleroderma, copd. Patient presenting with overall weakness last couple of days. Blood cultures and urine culture pending. Day # 1 of antimicrobial therapy. Plan Vancomycin * Loading dose: 1500 mg iv x 1 (ED) * Maintenance dose: 1000 mg iv q 18 hours * Regimen is predicted to achieve target AUC/ABIOLA of 400-600 mg/L.hr * Will plan to order a vancomycin level if continued >48 hours Pharmacy will continue to follow and will adjust dose/frequency as necessary. Thank you. Pharmacy has transitioned to AUC monitoring for vancomycin. AUC/ABIOLA is the preferred PK/PD target and is associated with decreased risk of nephrotoxicity compared to traditional trough targets.
--- NOTE | 2023-07-31 20:44 | Communication Note ---
Date of Service: July 31, 2023 Repeat H/H this evening 6.1/20.8 (from 7.9/25.6 this morning). Re-evaluated at bedside and noted to be more pale but otherwise similar appearance to earlier. Remains generally weak and lightheaded but no new visual changes, CP or abdominal pain. No e/o acute bleeding. Clarified that she has been taking both aspirin and plavix at home for h/o CVA and PVD. Rectal exam per Dr. Florentino Melanotic stool, FOBT positive Consented for blood and ordered 2 units PRBCs. ; Target hemoglobin of at least 8 given vascular history Blood consent was obtained from the patient as delegated by Dr. Neil. Risks and benefits were explained. All questions were answered. Started on IV protonix and drip Hold aspirin and plavix NPO GI consult CBC in AM after transfusion complete
[2023-07-31] MEDS: LANTUS PER UNIT CHARGE SQ SCH (20:57)
[2023-07-31] MEDS: rOPINIRole HCL 0.25 MG TABLET PO SCH (21:04)
[2023-07-31] MEDS: DONEPEZIL HCL 10 MG TAB PO SCH (21:05)
[2023-07-31] MEDS: GABAPENTIN 300 MG CAP PO SCH (21:05)
[2023-07-31] MEDS: ATORVASTATIN 40 MG TAB PO SCH (21:05)
[2023-07-31] MEDS: MIRTAZAPINE TAB 15 MG TAB PO SCH (21:06)
[2023-07-31] MEDS ORDERED: PANTOPRAZOLE BOLUS/DRIP IV STA (21:29)
[2023-07-31] MEDS ORDERED: PANTOprazole 80 MG in DEXTROSE 5% 100 ML IV ONE (21:29)
--- NOTE | 2023-07-31 21:44 | Communication Note ---
Date of Service: July 31, 2023
[2023-07-31 21:55] LABS: Magnesium 1.9 mg/dl (1.7-2.4)
[2023-07-31] MEDS ORDERED: PIPERACILLIN/TAZOBACTAM 4.5 GM in DEXTROSE 5% MINI-B 100 ML IV SCH (22:00)
[2023-07-31] MEDS ORDERED: MAGNESIUM SULFATE / D5W 1 GM/100 ML BAG IV ONE (22:03)
[2023-07-31] MEDS: PANTOprazole 40 MG in DEXTROSE 5% MINI-B 100 ML IV SCH (22:10)
[2023-08-01] MEDS ORDERED: LACTATED RINGER'S 1,000 ML IV ONE (00:15)
[2023-08-01] MEDS: LACTATED RINGER'S 1,000 ML IV SCH ×5 (02:00→20:57)
[2023-08-01] MEDS ORDERED: SODIUM CHLORIDE 0.9% 250 ML IV PRN ×2 (02:05→07:35)
[2023-08-01] MEDS: PANTOprazole 40 MG in DEXTROSE 5% MINI-B 100 ML IV SCH ×4 (03:10→18:08)
[2023-08-01] MEDS: CEFEPIME 2,000 MG in SYRINGE 0 ML IV SCH ×2 (05:23→18:19)
[2023-08-01] MEDS: LEVOTHYROXINE SODIUM 50 MCG TABLET PO SCH (05:25)
[2023-08-01] MEDS ORDERED: VANCOMYCIN HCL 1,000 MG in SODIUM CHLORIDE 0.9% 250 ML IV SCH (06:00)
[2023-08-01 07:00] LABS: Hematocrit (blood only) 19.8 % (37.0-47.0); Hemoglobin 6.2 g/dl (12.0-16.0); Mean Corpuscular Hemoglobin 31.5 pg (25.0-34.0); Mean Corpuscular Hgb Conc 31.3 g/dL (32.0-36.0); Mean Corpuscular Volume 100.5 fL (80.0-100.0); Mean Platelet Volume 9.9 fL (9.4-12.4); Nucleated RBC # (auto) 0.12 K/uL (0.00-0.12); Nucleated RBC % (auto) 1.6 %; Platelet Count 286 K/uL (130-400); RDW Coefficient of Variation 22.1 % (11.5-14.5); RDW Standard Deviation 81.6 fL (36.4-46.3); Red Blood Count 1.97 M/uL (4.20-5.40); White Blood Count 7.41 K/ul (4.8-10.8)
[2023-08-01 07:12] LABS: BUN Creatinine Ratio 19.5 (10-20); Calcium 7.7 mg/dl (8.6-10.3); Est GFR (African American) 85.2 ml/min; Est GFR (Non-African American) 73.5 ml/min; Potassium 4.1 mmol/L (3.5-5.1)
[2023-08-01 07:33] LABS: Ferritin 17.4 ng/ml (8-388)
[2023-08-01 07:39] LABS: Folate (Folic Acid),Ser orPlas 9.56 ng/ml (>5.38)
[2023-08-01] MEDS ORDERED: LACTATED RINGER'S 500 ML IV ONE (08:06)
[2023-08-01] MEDS: INSULIN ASPART PER UNIT CHARGE SC SCH ×4 (08:26→21:04)
[2023-08-01] MEDS: EZETIMIBE 10 MG TAB PO SCH (08:28)
[2023-08-01] MEDS: FLUTICASONE PROPIONATE NA SPR 16 GM BTL NAE SCH (08:28)
[2023-08-01] MEDS: GABAPENTIN 300 MG CAP PO SCH ×2 (08:28→20:58)
[2023-08-01] MEDS: LANTUS PER UNIT CHARGE SQ SCH ×2 (08:29→21:07)
[2023-08-01] MEDS: VENLAFAXINE HCL XR 75 MG CAPXR PO SCH (08:30)
[2023-08-01] MEDS ORDERED: FERROUS SULFATE 325 MG TAB PO SCH (09:00)
[2023-08-01] MEDS ORDERED: PANTOprazole 40 MG TAB PO SCH (09:00)
--- NOTE | 2023-08-01 09:28 | Gastrointestinal Consultation ---
Date of Consultation August 01, 2023 Assessment & Plan (1) Symptomatic anemia: Plan Will plan for elective EGD/colonoscopy as OP after Hb has been corrected to >7.0. Urgent EGD can be arranged if patient beings with obvious/rapid gross GI bleeding. Hold Plavix. May have clear liquids po today. Supervising Physician Co-Signing Physician Notes I performed a history and physical examination of the patient today, including specifically on physical exam - soft abdomen. I have discussed the patient's management with the advanced practitioner. Please refer to the nurse practitioner's note for the documented findings and plan of care. No overt GI bleeding, likely chronic related to blood thinners. Transfuse PRBC to get Hgb>7 Plan for EGD/colonoscopy as OP in few weeks. PO PPI. Recall GI if needed. History of Present Illness Reason for Consultation: Gi Bleed Requesting Physician: Genna Kuo PA-C Attending Physician: Gila Ruiz MD History of Present Illness Ms. Mike Orona is a 68 yr old female pt of Dr. Macdonald w a hx of CVA (on Plavix/ASA), HTN, CREST, Hypothyroidism, DM-2 who presented to the ED for dizziness present since Sunday (now 5th day). She denies any CP, SOB, abdominal pain, N/V or diarrhea. Her appetite has been decreased since Sunday. No black or red BMs. On arrival, Hb 7.9-> 6.2 this morning. She is iron deficient (ferritin 17) and B12 deficient w macrocytosis (MCV 100). Occult stool was (+). 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 Pt is hypotensive at 88/65, pulse is normal at 84. She is awake, alert, oriented and comfortable. Most recent colonoscopy was in 2020 w int/ext hemorrhoids, otherwise normal. She also underwent prior EGD/Colonoscopy in 2019 for iron deficiency anemia w findings of gastritis, internal hemorrhoids. Allergies Allergy/AdvReac Type Severity Reaction Status Date / Time clarithromycin AdvReac Unknown FEEL WEIRD Verified 07/31/23 11:30 Home Medications Medication Instructions Recorded Confirmed Type atorvastatin 80 mg tablet 80 mg PO HS 07/14/18 07/31/23 History bisacodyl 5 mg tablet,delayed 5 mg PO HS PRN Constipation 07/14/18 07/31/23 History release (Dulcolax (bisacodyl)) docusate calcium 240 mg capsule 240 mg PO DAILY PRN Constipation 07/14/18 07/31/23 History (Stool Softener (docusate calcium)) donepezil 10 mg tablet 10 mg PO HS 07/14/18 07/31/23 History ezetimibe 10 mg tablet 10 mg PO QAM 07/14/18 07/31/23 History ferrous sulfate 325 mg (65 mg 650 mg PO QAM 07/14/18 07/31/23 History iron) tablet loratadine 10 mg tablet (Claritin) 10 mg PO HS PRN allergies 07/14/18 07/31/23 History losartan 25 mg tablet 12.5 mg PO QAM 07/14/18 07/31/23 History metformin 500 mg tablet,extended 1,000 mg PO BID 07/14/18 07/31/23 History release 24 hr mirtazapine 30 mg tablet 30 mg PO HS 07/14/18 07/31/23 History ropinirole 0.5 mg tablet 0.5 mg PO HS 07/14/18 07/31/23 History trazodone 50 mg tablet 50 mg PO HS PRN Pain 07/14/18 07/31/23 History venlafaxine 75 mg tablet 75 mg PO QAM 07/14/18 07/31/23 History insulin glargine 100 unit/mL (3 24 unit subcut QAM 05/12/19 07/31/23 History mL) subcutaneous pen (Hans Bender U-100 Insulin) clopidogrel 75 mg tablet (Plavix) 75 mg PO QAM 08/25/19 07/31/23 History aspirin 81 mg capsule 81 mg PO DAILY 07/31/23 07/31/23 History dulaglutide 0.75 mg/0.5 mL 0.75 mg subcut WK 07/31/23 07/31/23 History subcutaneous pen injector (Trulicity) fluticasone propionate 50 2 spray intranasal DAILY 07/31/23 07/31/23 History mcg/actuation nasal spray,suspension gabapentin 300 mg capsule 300 mg PO BID 07/31/23 07/31/23 History levothyroxine 50 mcg tablet 50 mcg PO DAILY 07/31/23 07/31/23 History pantoprazole 40 mg tablet,delayed 40 mg PO QAM 07/31/23 07/31/23 History release Patient History Medical History (Updated 08/01/23 @ 00:09 by Espinoza Medrano) Generalized weakness Generalized weakness Restless leg syndrome Hypertension Vascular disease Mood disorder History of CVA with residual deficit approx 7 yrs > H/o L MCA stroke during attempted L SCA stenting. Has residual dysphagia Gastroparesis Esophagitis Carotid stenosis Right carotid artery 70 to 90% stenosis of internal carotid, left carotid artery 50 to 69% Hyperlipidemia DJD (degenerative joint disease), lumbar DM type 2 (diabetes mellitus, type 2) IDDM Hypothyroidism PVD (peripheral vascular disease) CREST syndrome Anemia Surgical History History of cataract surgery left History of tooth extraction Hx of esophagogastroduodenoscopy Hx of colonoscopy H/O foot surgery right History of hysterectomy History of spinal fusion lumbar S/P appendectomy (10/11/12) Family History Mother Breast cancer Uterine cancer Father Lung cancer Emphysema/COPD Social History Smoking Status: Never smoker Second Hand Exposure: No; Do You Dip or Chew Tobacco: No; Hx Alcohol Use: No Hx Substance Use: No Preferred Language: Divehi Communication Ability: Impaired [id number] Armor Crewman Required: No Beliefs That Will Affect Care: None marital status: Single Current Living Situation: Alone How many Children do You have: 1 Other Information That Helps Us Care for You: No Feels Safe at Home: Yes Safety Concerns: Feels Safe At This Time Assistive Devices: Cane and Walker Review of Systems Review of Systems: ROS: Gen: mildly aphasic and right sided weakness (chronic post CVA), + general weakness, No fevers or weight loss Eyes: No eye redness, or pain, no recent vision changes Resp: No SOB, no cough Cardio: No palpitations/irregular beats, no chest pain GI: No abdominal pain, no nausea/vomiting : Denies pain on urination Skin: No jaundice, itching or new rashes Physical Exam Constitutional: Mildly aphasic and right sided weakness; alert, oriented, comfortable. Eyes: PERRL, conjunctivae normal, anicteric sclerae Neck: trachea midline, no thyromegaly Cardiovascular: RRR, no murmur, no edema Gastrointestinal (Abdomen): normal bowel sounds, soft, nontender, no hepatosplenomegaly Skin: no rashes, warm and dry Psychiatric: A+Ox3, euthymic affect Lymphatic: no cervical or axillary lymphadenopathy Results & Data Vital Signs (Past 12 Hours) Vital Signs Temp Pulse Pulse Resp BP BP Pulse Ox 08/01/23 09:18 88/65 L 08/01/23 07:31 36.4 C L 84 16 86/59 L 95 08/01/23 03:41 36.4 C L 101 H 16 95/63 L 95 08/01/23 01:46 90/56 L 07/31/23 23:51 36.5 C 98 H 16 81/52 L 95 07/31/23 23:10 07/31/23 23:08 96 H O2 Del Method 08/01/23 09:18 08/01/23 07:31 Room Air 08/01/23 03:41 Room Air 08/01/23 01:46 07/31/23 23:51 Room Air 07/31/23 23:10 Room Air 07/31/23 23:08 Laboratory Results WBC 7.4, Hb 6.2, Hct 19.8, plts 286, Na 138, K 4.1, Cl 107, CO2 27, BUN 4, Cr 16, glucose 111. Diagnostic Findings Review of OP records shows a non contrast CTAP in Jun [address] of head 07/31/22: 1. No acute intracranial abnormality identified. 2. Large area of encephalomalacia within the left MCA territory compatible with chronic infarct(s), increased in size compared to the 2018 comparison. CXR 116/23: no acute processes.
[2023-08-01] MEDS ORDERED: IRON SUCROSE 300 MG in SODIUM CHLORIDE 0.9% 250 ML IV ONE ×2 (10:41→11:15)
--- NOTE | 2023-08-01 11:02 | Hospitalist Progress Note ---
Date of Service August 01, 2023 Assessment & Plan (1) Sepsis: (2) Urinary tract infection: (3) Generalized weakness: (4) Anemia: (5) Hypertension: (6) History of CVA with residual deficit: (7) CREST syndrome: (8) Hypothyroidism: (9) PVD (peripheral vascular disease): (10) DM type 2 (diabetes mellitus, type 2): (11) Carotid stenosis: (12) Mood disorder: Plan is a 64-year-old female who has significant PMH of DM II on insulin, hx of CVA with residual aphasia/R sided weakness, carotid artery stenosis, L subclavian occlusion, HTN, HLD, COPD, Hypothyroidism, GERD, Scleroderma/CREST syn, Mood disorder, Depression with anxiety who presents to [facility] ED secondary to overall feeling weak x 2 days prior to arrival and was found to have sepsis 2/2 UTI. Patient admitted on 07/31 for management of sepsis. Initial labs notable for hgb lower than recent OP records, trend revealed concern for active bleed as hgb went from 7.9 to 6.2. Transfusion delayed given antivel antibody presence, which is notably very rare and finding a unit is difficult--currently [facility] attempting to locate a unit for patient. Urine is notable for GNB, however, in hopes to optimize anemia without blood product, IV iron will be admitted as risk of possible re-infection less than benefit of optimizing anemia in this setting. #Acute on chronic macrocytic anemia #Anti-lukas antibody #Iron deficiency anemia #B12 deficiency -History of iron deficiency, on chronic supplementation -Ongoing conversations with Blood Bank--coordinating blood with lukas-negative type to ensure no transfusion reaction as pretreatment likely not able to stave of reaction from transfusion -See antibiody ID note for details on discussion with Dr. Baker from [place] regarding transfusion "very risky, very last resort" -Will treat patient similar to [facility]/blood refusal and optimize anemia where possible -Start B12 IM injection, B12 level 82 -Start empiric folic acid 1g daily -Start Iron Sucrose infusions for goal ferritin >100 and TIBC >20% -minimize hgb draws BID -Heme/onc consult for further anemia optimization -Retic count, bili, ldh, hapto and peripheral smear ordered -Transfuse when blood product available -Hold ASA/plavix at this time -GI consulted -CLD -EGD when hgb > 7 #Sepsis 2/2 UTI #Acute urinary tract infection POA Hypotensive and tachycardic initially, improved BP to 105/77 and HR 95 after 2L NSS. 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 Large area of encephalomalacia within the left MCA territory compatible with chronic infarct(s), increased in size compared to the 2018 comparison. Expect this will improve with treatment of infection Fall precautions, PT/OT Continue statin hold plavix/asa until hgb stable and s/p scope #DM type 2 (diabetes mellitus, type 2) A1c 5.3 in Feb 2023 Hold home PO meds Basal/bolus insulin per protocol while in-patient BSG checks AC HS #Hypertension Hypotensive in setting of sepsis- hold losartan until BP improves #Hypothyroidism Continue levothyroxine #Mood disorder Continue Mirtazapine, trazodone, venlafaxine #CREST syndrome Has some chronic skin lesions. Not on medications DVT Ppx: SCDs for now Code status: FULL PCP: Renae Dispo: Admitted to PCU. Plan to return home once medically stable and after PT/OT javier Arreguin spent a total of 65 minutes coordinating, documenting, and providing care for this patient excluding time spent in the performance of separately billed ser vices. Admission and Anticipated Discharge Date Admission Date: July 31, 2023 Supervising Physician Co-Signing Physician Notes Subjective Hemoglobin downtrending overnight Blood bank unable to obtain until due to anti-lukas antibody--contact with [place] revealed transfusions with Lukas-negative blood would be detrimental and should be reserved for emergent use, steroid/pre-treatment would likely not help given risks of severe acute and delayed reactions Patient states she feels "ok", denies any chest pain, SOB or other acute concerns States again that her stool always looks "different" since she is on iron pills and denies any pain, delaney blood, frequent loose stools or other notable concerns Patient reports feeling weak overall Physical Exam Constitutional: pale, frail woman, conversational, Respiratory: normal respiratory effort, lungs clear to auscultation Cardiovascular: RRR, no murmur, no edema Gastrointestinal (Abdomen): normal bowel sounds, soft, nontender, no hepatosplenomegaly Results & Data Results & Data Vital Signs (Past 12 Hours) Vital Signs Temp Pulse Pulse Resp BP BP Pulse Ox 08/01/23 09:50 103/70 08/01/23 09:18 88/65 L 08/01/23 07:31 36.4 C L 84 16 86/59 L 95 08/01/23 03:41 36.4 C L 101 H 16 95/63 L 95 08/01/23 01:46 90/56 L 07/31/23 23:51 36.5 C 98 H 16 81/52 L 95 07/31/23 23:10 07/31/23 23:08 96 H O2 Del Method 08/01/23 09:50 08/01/23 09:18 08/01/23 07:31 Room Air 08/01/23 03:41 Room Air 08/01/23 01:46 07/31/23 23:51 Room Air 07/31/23 23:10 Room Air 07/31/23 23:08 Laboratory Results Short CBC 07/31/23 08/01/23 Range/Units 19:07 06:31 WBC 7.41 (4.8-10.8) K/ul Hgb 6.1 L* 6.2 L* (12.0-16.0) g/dl Hct 20.8 L* 19.8 L* (37.0-47.0) % Plt Count 286 (130-400) K/uL BMP 08/01/23 06:31 Sodium 138 Potassium 4.1 Chloride 107 Carbon Dioxide 27 BUN 16 Creatinine 0.82 Glucose 111 H Calcium 7.7 L Urine 07/31/23 Range/Units 12:08 Urine Color Yellow Urine Appearance Cloudy A (Clear) Urine pH 5.5 (4.5-7.5) Ur Specific [place] 1.022 (1.000-1.030) Urine Protein Negative (Negative) Urine Glucose (UA) Negative (Negative) Medications Administered Home Medications Medication Instructions Recorded Confirmed Last Taken atorvastatin 80 mg tablet 80 mg PO HS 07/14/18 07/31/23 11/23/21 bisacodyl 5 mg tablet,delayed 5 mg PO HS PRN Constipation 07/14/18 07/31/23 07/13/18 release (Dulcolax (bisacodyl)) docusate calcium 240 mg capsule 240 mg PO DAILY PRN Constipation 07/14/18 07/31/23 07/13/18 (Stool Softener (docusate calcium)) donepezil 10 mg tablet 10 mg PO HS 07/14/18 07/31/23 11/23/21 ezetimibe 10 mg tablet 10 mg PO QAM 07/14/18 07/31/23 11/23/21 ferrous sulfate 325 mg (65 mg 650 mg PO QAM 07/14/18 07/31/23 11/23/21 iron) tablet loratadine 10 mg tablet (Claritin) 10 mg PO HS PRN allergies 07/14/18 07/31/23 11/23/21 losartan 25 mg tablet 12.5 mg PO QAM 07/14/18 07/31/23 11/23/21 metformin 500 mg tablet,extended 1,000 mg PO BID 07/14/18 07/31/23 11/23/21 release 24 hr mirtazapine 30 mg tablet 30 mg PO HS 07/14/18 07/31/23 11/23/21 ropinirole 0.5 mg tablet 0.5 mg PO HS 07/14/18 07/31/23 11/23/21 trazodone 50 mg tablet 50 mg PO HS PRN Pain 07/14/18 07/31/23 10/26/21 venlafaxine 75 mg tablet 75 mg PO QAM 07/14/18 07/31/23 11/23/21 insulin glargine 100 unit/mL (3 24 unit subcut QAM 05/12/19 07/31/23 11/23/21 mL) subcutaneous pen (Hans Bender U-100 Insulin) clopidogrel 75 mg tablet (Plavix) 75 mg PO QAM 08/25/19 07/31/23 11/23/21 aspirin 81 mg capsule 81 mg PO DAILY 07/31/23 07/31/23 Unknown dulaglutide 0.75 mg/0.5 mL 0.75 mg subcut WK 07/31/23 07/31/23 [facility] fluticasone propionate 50 2 spray intranasal DAILY 07/31/23 07/31/23 Unknown mcg/actuation nasal spray,suspension gabapentin 300 mg capsule 300 mg PO BID 07/31/23 07/31/23 Unknown levothyroxine 50 mcg tablet 50 mcg PO DAILY 07/31/23 07/31/23 Unknown pantoprazole 40 mg tablet,delayed 40 mg PO QAM 07/31/23 07/31/23 Unknown release Active Medications Generic Name Dose Route Start Last Admin Trade Name Bryanq PRN Reason Stop Dose Admin Atorvastatin Calcium 80 mg 07/31/23 21:00 07/31/23 21:05 Atorvastatin 40 Mg Tab PO 08/30/23 20:59 80 mg HS OLIMPIA Administration Cyanocobalamin 1,000 mcg 08/01/23 10:45 08/01/23 11:15 Cyanocobalamin 1000 Mcg/Ml Vial IM 08/31/23 10:44 1,000 mcg QAM OLIMPIA Administration Donepezil HCl 10 mg 07/31/23 21:00 07/31/23 21:05 Donepezil Hcl 10 Mg Tab PO 08/30/23 20:59 10 mg HS OLIMPIA Administration Ezetimibe 10 mg 08/01/23 09:00 08/01/23 08:28 Ezetimibe 10 Mg Tab PO 08/31/23 08:59 Not Given QAM OLIMPIA Fluticasone Propionate 2 sprays 08/01/23 09:00 08/01/23 08:28 Fluticasone Propionate Na Spr 16 Gm Btl CHERIE 08/31/23 08:59 Not Given DAILY OLIMPIA Folic Acid 1 mg 08/01/23 10:45 08/01/23 11:15 Folic Acid 1 Mg Tab PO 08/31/23 10:44 1 mg QAM OLIMPIA Administration Gabapentin 300 mg 07/31/23 21:00 08/01/23 08:28 Gabapentin 300 Mg Cap PO 08/30/23 20:59 Not Given BID OLIMPIA Pantoprazole Sodium 40 mg/ 100 mls @ 20 mls/hr 07/31/23 21:45 08/01/23 07:54 Dextrose IV 08/30/23 21:44 8 mg/hr Q5H OLIMPIA 20 mls/hr Administration 8 MG/HR Cefepime HCl 2,000 mg/ Syringe 20 mls @ 5 mls/min 08/01/23 06:00 08/01/23 05:23 IV 08/11/23 05:59 5 mls/min Q12H OLIMPIA Administration Protocol Lactated Ringer's 1,000 mls @ 200 mls/hr 08/01/23 02:00 08/01/23 09:47 Lr IV 08/31/23 01:59 200 mls/hr .Q5H OLIMPIA Administration Iron Sucrose 300 mg/ Sodium 265 mls @ 176.667 mls/hr 08/01/23 11:15 08/01/23 11:38 Chloride IV 08/01/23 12:44 176.7 mls/hr TODAY@ONE ONE Administration Insulin Aspart 0 units 07/31/23 16:30 08/01/23 08:26 Insulin Aspart Per Unit Charge SC 08/30/23 16:29 Not Given ACHS OLIMPIA Insulin Glargine 0 - 12 units 07/31/23 21:00 08/01/23 08:29 Lantus Per Unit Charge SQ 08/30/23 20:59 Not Given BID OLIMPIA Levothyroxine Sodium 50 mcg 08/01/23 06:30 08/01/23 05:25 Levothyroxine Sodium 50 Mcg Tablet PO 08/31/23 06:29 50 mcg DAILYBB OLIMPIA Administration Mirtazapine 30 mg 07/31/23 21:00 07/31/23 21:06 Mirtazapine Tab 15 Mg Tab PO 08/30/23 20:59 30 mg HS OLIMPIA Administration Ropinirole HCl 0.5 mg 07/31/23 21:00 07/31/23 21:04 Ropinirole Hcl 0.25 Mg Tablet PO 08/30/23 20:59 0.5 mg HS OLIMPIA Administration Venlafaxine HCl 75 mg 08/01/23 09:00 08/01/23 08:30 Venlafaxine Hcl Xr 75 Mg Capxr PO 08/31/23 08:59 Not Given QAM OLIMPIA
[2023-08-01] MEDS: CYANOCOBALAMIN 1000 MCG/ML VIAL IM SCH (11:15)
[2023-08-01] MEDS: FOLIC ACID 1 MG TAB PO SCH (11:15)
[2023-08-01 14:02] LABS: Estimated Average Glucose 94 mg/dl; Hemoglobin A1C 4.9 % (4.5-5.6)
[2023-08-01 15:16] LABS: Immature Retic Fraction 32.6 % (2.3-15.9); Reticulated Hemoglobin 31.7 pg (28.2-36.6); Reticulocytes # 0.14 10^6/uL (0.020-0.100)
[2023-08-01 15:19] LABS: Hematocrit (blood only) 21.4 % (37.0-47.0); Hemoglobin 6.4 g/dl (12.0-16.0)
[2023-08-01 15:35] LABS: Bilirubin Direct 0.1 mg/dl (0-0.2); Bilirubin,Total 0.5 mg/dl (0.2-1.0)
--- NOTE | 2023-08-01 16:50 | Oncology Consultation ---
Date of Consultation August 01, 2023 Assessment & Plan (1) Symptomatic anemia: (2) Acute UTI: Plan Patient admitted with severe symptomatic anemia and UTI. -Workup suggestive of iron and B12 deficiency. No evidence of hemolysis with normal LDH, haptoglobin and smear review pending. - Recommend IV Venofer 300 mg daily x 3 days. - Also recommend parenteral B12 supplementation daily and can switch to monthly on discharge . -May consider transfer to tertiary center if blood remains unavailable here and can be accessed there much quicker Thank you for this consult. Hematology will follow peripherally while patient is in the hospital. Please feel free to call if you have any further questions History of Present Illness Reason for Consultation: Anemia Attending Physician: Gila Ruiz MD History of Present Illness Pleasant 68-year-old female with multiple comorbidities including history of CVA with residual deficits, peripheral vascular disease for which she was on Plavix/aspirin who presented to the ER with generalized weakness, fatigue and dizziness. Labs obtained in the ED revealed anemia with hemoglobin of 7.9, hematocrit of 25.6, MCV was 102. WBC was initially elevated at 13.7 with normal platelet count of 404,000. Repeat labs obtained yesterday evening revealed hemoglobin of 6.1, hematocrit of 20.8. Anemia workup revealed iron deficiency with ferritin of 17.4, B12 deficiency with B12 level of 84 and normal folate of 9.56. Patient unfortunately has a history of anti-Lukas antibody and is currently awaiting blood from [email or web address]. Workup obtained also on admission revealed UTI for which she is currently on broad-spectrum antibiotics. Stool for occult blood was positive. Evaluated by GI who recommended conservative managemen for now until hemoglobin is above 7. She complains of fatigue. Denies abnormal bleeding or bruising. Allergies Allergy/AdvReac Type Severity Reaction Status Date / Time clarithromycin AdvReac Unknown FEEL WEIRD Verified 07/31/23 11:30 Home Medications Medication Instructions Recorded Confirmed Type atorvastatin 80 mg tablet 80 mg PO HS 07/14/18 07/31/23 History bisacodyl 5 mg tablet,delayed 5 mg PO HS PRN Constipation 07/14/18 07/31/23 History release (Dulcolax (bisacodyl)) docusate calcium 240 mg capsule 240 mg PO DAILY PRN Constipation 07/14/18 07/31/23 History (Stool Softener (docusate calcium)) donepezil 10 mg tablet 10 mg PO HS 07/14/18 07/31/23 History ezetimibe 10 mg tablet 10 mg PO QAM 07/14/18 07/31/23 History ferrous sulfate 325 mg (65 mg 650 mg PO QAM 07/14/18 07/31/23 History iron) tablet loratadine 10 mg tablet (Claritin) 10 mg PO HS PRN allergies 07/14/18 07/31/23 History losartan 25 mg tablet 12.5 mg PO QAM 07/14/18 07/31/23 History metformin 500 mg tablet,extended 1,000 mg PO BID 07/14/18 07/31/23 History release 24 hr mirtazapine 30 mg tablet 30 mg PO HS 07/14/18 07/31/23 History ropinirole 0.5 mg tablet 0.5 mg PO HS 07/14/18 07/31/23 History trazodone 50 mg tablet 50 mg PO HS PRN Pain 07/14/18 07/31/23 History venlafaxine 75 mg tablet 75 mg PO QAM 07/14/18 07/31/23 History insulin glargine 100 unit/mL (3 24 unit subcut QAM 05/12/19 07/31/23 History mL) subcutaneous pen (Basaglar KwikPen U-100 Insulin) clopidogrel 75 mg tablet (Plavix) 75 mg PO QAM 08/25/19 07/31/23 History aspirin 81 mg capsule 81 mg PO DAILY 07/31/23 07/31/23 History dulaglutide 0.75 mg/0.5 mL 0.75 mg subcut WK 07/31/23 07/31/23 History subcutaneous pen injector ([employer]) fluticasone propionate 50 2 spray intranasal DAILY 07/31/23 07/31/23 History mcg/actuation nasal spray,suspension gabapentin 300 mg capsule 300 mg PO BID 07/31/23 07/31/23 History levothyroxine 50 mcg tablet 50 mcg PO DAILY 07/31/23 07/31/23 History pantoprazole 40 mg tablet,delayed 40 mg PO QAM 07/31/23 07/31/23 History release Patient History Medical History (Updated 08/01/23 @ 00:09 by Background Daemon) Generalized weakness Generalized weakness Restless leg syndrome Hypertension Vascular disease Mood disorder History of CVA with residual deficit approx 7 yrs > H/o L MCA stroke during attempted L SCA stenting. Has residual dysphagia Gastroparesis Esophagitis Carotid stenosis Right carotid artery 70 to 90% stenosis of internal carotid, left carotid artery 50 to 69% Hyperlipidemia DJD (degenerative joint disease), lumbar DM type 2 (diabetes mellitus, type 2) IDDM Hypothyroidism PVD (peripheral vascular disease) CREST syndrome Anemia Surgical History History of cataract surgery left History of tooth extraction Hx of esophagogastroduodenoscopy Hx of colonoscopy H/O foot surgery right History of hysterectomy History of spinal fusion lumbar S/P appendectomy (10/11/12) Family History Mother Breast cancer Uterine cancer Father Lung cancer Emphysema/COPD Social History Smoking Status: Never smoker Second Hand Exposure: No; Do You Dip or Chew Tobacco: No; Hx Alcohol Use: No Hx Substance Use: No Preferred Language: Kiswahili Communication Ability: Impaired 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
[2023-08-01] MEDS: ATORVASTATIN 40 MG TAB PO SCH (20:57)
[2023-08-01] MEDS: rOPINIRole HCL 0.25 MG TABLET PO SCH (20:58)
[2023-08-01] MEDS: DONEPEZIL HCL 10 MG TAB PO SCH (20:59)
[2023-08-01] MEDS: MIRTAZAPINE TAB 15 MG TAB PO SCH (21:00)
[2023-08-02] MEDS: PANTOprazole 40 MG in DEXTROSE 5% MINI-B 100 ML IV SCH ×5 (00:30→20:54)
[2023-08-02] MEDS: LACTATED RINGER'S 1,000 ML IV SCH ×2 (01:34→13:56)
[2023-08-02 05:04] LABS: BUN Creatinine Ratio 11.6 (10-20); Calcium 8.2 mg/dl (8.6-10.3); Creatinine Clr Calc Pharmacy 58.1 ml/min; Est GFR (African American) 80.5 ml/min; Est GFR (Non-African American) 69.4 ml/min; Magnesium 1.9 mg/dl (1.7-2.4); Potassium 4.1 mmol/L (3.5-5.1)
[2023-08-02] MEDS: CEFEPIME 2,000 MG in SYRINGE 0 ML IV SCH ×2 (05:14→17:26)
[2023-08-02] MEDS: LEVOTHYROXINE SODIUM 50 MCG TABLET PO SCH (05:15)
[2023-08-02 05:31] LABS: Hematocrit (blood only) 19.4 % (37.0-47.0); Hemoglobin 5.9 g/dl (12.0-16.0); Mean Corpuscular Hemoglobin 31.7 pg (25.0-34.0); Mean Corpuscular Hgb Conc 30.4 g/dL (32.0-36.0); Mean Corpuscular Volume 104.3 fL (80.0-100.0); Mean Platelet Volume 10.6 fL (9.4-12.4); Nucleated RBC # (auto) 0.13 K/uL (0.00-0.12); Platelet Count 275 K/uL (130-400); RDW Coefficient of Variation 22.1 % (11.5-14.5); RDW Standard Deviation 83.7 fL (36.4-46.3); Red Blood Count 1.86 M/uL (4.20-5.40); White Blood Count 6.65 K/ul (4.8-10.8)
[2023-08-02 05:32] LABS: Anisocytosis Present; Basophils # (auto) 0.05 K/uL (0.00-0.20); Basophils % (auto) 0.8 %; Eosinophils # (auto) 0.09 K/uL (0.00-0.50); Eosinophils % (auto) 1.4 %; Immature Granulocytes # (auto) 0.06 K/uL (0.01-0.20); Immature Granulocytes % (auto) 0.9 %; Lymphocytes # (auto) 1.03 K/uL (1.20-3.40); Lymphocytes % (auto) 15.5 %; Monocytes # (auto) 0.82 K/uL (0.11-0.59); Monocytes % (auto) 12.3 %; Neutrophils % (auto) 69.1 %; Polychromasia 2+
--- NOTE | 2023-08-02 07:16 | Communication Note ---
Date of Service: August 02, 2023 Hemoglobin is 5.9 Patient requires YUNG-NEGATIVE blood. After calling [facility] blood bank and discussing with the [facility], this blood is not routinely test for and transferring patient does not result in quicker access to blood than already being coordinated. The issue is this blood is not routinely tested and a DONOR needs to be sourced and blood located. Optimizing as able with iron transfusion and empiric B12/folate. Per Dr Baker---"very last resort" to transfuse. Patient remains alert, oriented. Patient has LEFT SUBCLAVIAN STENOSIS so blood pressure should be obtained from right side.
--- NOTE | 2023-08-02 07:23 | Hospitalist Progress Note ---
Date of Service August 02, 2023 Assessment & Plan (1) Sepsis: (2) Urinary tract infection: (3) Generalized weakness: (4) Anemia: (5) Hypertension: (6) History of CVA with residual deficit: (7) CREST syndrome: (8) Hypothyroidism: (9) PVD (peripheral vascular disease): (10) DM type 2 (diabetes mellitus, type 2): (11) Carotid stenosis: (12) Mood disorder: Plan is a 64-year-old female who has significant PMH of DM II on insulin, hx of CVA with residual aphasia/R sided weakness, carotid artery stenosis, L subclavian occlusion, HTN, HLD, COPD, Hypothyroidism, GERD, Scleroderma/CREST syn, Mood disorder, Depression with anxiety who presents to [facility] ED secondary to overall feeling weak x 2 days prior to arrival and was found to have sepsis 2/2 UTI. Patient admitted on 07/31 for management of sepsis. Initial labs notable for hgb lower than recent OP records, trend revealed concern for active bleed as hgb went from 7.9 to 6.2. Transfusion delayed given antivel antibody presence, which is notably very rare and finding a unit is difficult--currently [facility] attempting to locate a unit for patient. Urine is notable for GNB, however, in hopes to optimize anemia without blood product, IV iron will be admitted as risk of possible re-infection less than benefit of optimizing anemia in this setting. Search for Lukas-negative, Rh- blood continues. Plan for CTA chest/abd/pelvis for signs of bleed #Acute on chronic macrocytic anemia #Anti-lukas antibody #Iron deficiency anemia #B12 deficiency -History of iron deficiency, on chronic supplementation -Ongoing conversations with Blood Bank--coordinating blood with lukas-negative type to ensure no transfusion reaction as pretreatment likely not able to stave of reaction from transfusion -See antibiody ID note for details on discussion with Dr. Baker from [facility] regarding transfusion "very risky, very last resort" -Will treat patient similar to [employer]ism/blood refusal and optimize anemia where possible -Start B12 IM injection, B12 level 82 -Start empiric folic acid 1g daily -Start Iron Sucrose infusions for goal ferritin >100 and TIBC >20% -minimize hgb draws BID -Heme/onc consult for further anemia optimization -Transfuse when blood product available -Hold ASA/plavix at this time -GI consulted -CLD -EGD when hgb > 7 -Anemia labs not suggestive of hemolysis, DIC, myelodysplasia -Smear consistent with anemia (chronic disease, nutritional deficiencies, renal disease) #Sepsis 2/2 UTI, ecoli #Acute urinary tract infection POA Hypotensive and tachycardic initially, improved BP to 105/77 and HR 95 after 2L NSS. 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 Large area of encephalomalacia within the left MCA territory compatible with chronic infarct(s), increased in size compared to the 2018 comparison. Expect this will improve with treatment of infection Fall precautions, PT/OT Continue statin hold plavix/asa until hgb stable and s/p scope #DM type 2 (diabetes mellitus, type 2) A1c 5.3 in Feb 2023 Hold home PO meds Basal/bolus insulin per protocol while in-patient BSG checks AC HS #Hypertension Hypotensive in setting of sepsis- hold losartan until BP improves #Hypothyroidism Continue levothyroxine #Mood disorder Continue Mirtazapine, trazodone, venlafaxine #CREST syndrome Has some chronic skin lesions. Not on medications DVT Ppx: SCDs for now Code status: FULL PCP: Renae Dispo: Admitted to PCU. Plan to return home once medically stable and after PT/OT afshinal I spent a total of 60 minutes coordinating, documenting, and providing care for this patient excluding time spent in the performance of separately billed services. Admission and Anticipated Discharge Date Admission Date: July 31, 2023 Subjective Remaining in close contact for blood product. Lukas-negative blood is not routinely tested for and not accessible at this facility or surrounding facilities at this time, a donor must be sourced and is being searched through the [facility] Donor organ Long discussion over phone with Dr. Baker regarding blood transfusions--reports current plan and management is best and no utility in transfer at this time as no other facility would have the units and would do the "same process" -Contingency plan in rapid hemorrhage/unstable patient would be aggressive steroids and Rh- typed/cross blood, with very close monitoring for delayed transfusion reaction. Patient states she feels about the dame overall. Again no reports of hematemesis, hematochezia, melena She states she is tired, denies chest pain, palpitations or other acute issues Physical Exam Respiratory: normal respiratory effort, lungs clear to auscultation Cardiovascular: RRR, no murmur, no edema Gastrointestinal (Abdomen): normal bowel sounds, soft, nontender, no h epatosplenomegaly Results & Data Results & Data Vital Signs (Past 12 Hours) Vital Signs Temp Pulse Pulse Resp BP BP Pulse Ox 08/02/23 05:47 88 90/56 L 96 08/02/23 04:12 121/58 L 98 08/02/23 04:10 88 L 08/02/23 04:03 78/55 L 08/02/23 04:01 75/50 L 08/02/23 03:50 36.6 C 101 H 17 89/61 L 96 08/01/23 23:19 95 H 08/01/23 22:49 36.7 C 100 H 17 87/57 L 95 08/01/23 19:58 37.0 C 86 16 101/66 97 O2 Del Method O2 Flow Rate 08/02/23 05:47 Nasal Cannula 2 08/02/23 04:12 Nasal Cannula 2 08/02/23 04:10 Room Air 08/02/23 04:03 08/02/23 04:01 08/02/23 03:50 Room Air 08/01/23 23:19 08/01/23 22:49 Room Air 08/01/23 19:58 Room Air Laboratory Results Short CBC 08/01/23 08/02/23 Range/Units 14:48 04:14 WBC 6.65 (4.8-10.8) K/ul Hgb 6.4 L* 5.9 L* (12.0-16.0) g/dl Hct 21.4 L 19.4 L* (37.0-47.0) % Plt Count 275 (130-400) K/uL BMP 08/02/23 04:22 Sodium 140 Potassium 4.1 Chloride 108 H Carbon Dioxide 29 BUN 10 Creatinine 0.86 Glucose 123 H Calcium 8.2 L Liver Function 08/01/23 Range/Units 14:48 Total Bilirubin 0.5 (0.2-1.0) mg/dl Direct Bilirubin 0.1 (0-0.2) mg/dl Medications Administered Home Medications Medication Instructions Recorded Confirmed Last Taken atorvastatin 80 mg tablet 80 mg PO HS 07/14/18 07/31/23 11/23/21 bisacodyl 5 mg tablet,delayed 5 mg PO HS PRN Constipation 07/14/18 07/31/23 07/13/18 release (Dulcolax (bisacodyl)) docusate calcium 240 mg capsule 240 mg PO DAILY PRN Constipation 07/14/18 07/31/23 07/13/18 (Stool Softener (docusate calcium)) donepezil 10 mg tablet 10 mg PO HS 07/14/18 07/31/23 11/23/21 ezetimibe 10 mg tablet 10 mg PO QAM 07/14/18 07/31/23 11/23/21 ferrous sulfate 325 mg (65 mg 650 mg PO QAM 07/14/18 07/31/23 11/23/21 iron) tablet loratadine 10 mg tablet (Claritin) 10 mg PO HS PRN allergies 07/14/18 07/31/23 11/23/21 losartan 25 mg tablet 12.5 mg PO QAM 07/14/18 07/31/23 11/23/21 metformin 500 mg tablet,extended 1,000 mg PO BID 07/14/18 07/31/23 11/23/21 release 24 hr mirtazapine 30 mg tablet 30 mg PO HS 07/14/18 07/31/23 11/23/21 ropinirole 0.5 mg tablet 0.5 mg PO HS 07/14/18 07/31/23 11/23/21 trazodone 50 mg tablet 50 mg PO HS PRN Pain 07/14/18 07/31/23 10/26/21 venlafaxine 75 mg tablet 75 mg PO QAM 07/14/18 07/31/23 11/23/21 insulin glargine 100 unit/mL (3 24 unit subcut QA 05/12/19 07/31/23 11/23/21 mL) subcutaneous pen (Hans Bender U-100 Insulin) clopidogrel 75 mg tablet (Plavix) 75 mg PO QAM 08/25/19 07/31/23 11/23/21 aspirin 81 mg capsule 81 mg PO DAILY 07/31/23 07/31/23 Unknown dulaglutide 0.75 mg/0.5 mL 0.75 mg subcut WK 07/31/23 07/31/23 Unknown subcutaneous pen injector (Trulicity) fluticasone propionate 50 2 spray intranasal DAILY 07/31/23 07/31/23 Unknown mcg/actuation nasal spray,suspension gabapentin 300 mg capsule 300 mg PO BID 07/31/23 07/31/23 Unknown levothyroxine 50 mcg tablet 50 mcg PO DAILY 07/31/23 07/31/23 Unknown pantoprazole 40 mg tablet,delayed 40 mg PO QAM 07/31/23 07/31/23 Unknown release Active Medications Generic Name Dose Route Start Last Admin Trade Name Freq PRN Reason Stop Dose Admin Atorvastatin Calcium 80 mg 07/31/23 21:00 08/01/23 20:57 Atorvastatin 40 Mg Tab PO 08/30/23 20:59 80 mg HS OLIMPIA Administration Cyanocobalamin 1,000 mcg 08/01/23 10:45 08/02/23 08:40 Cyanocobalamin 1000 Mcg/Ml Vial IM 08/31/23 10:44 1,000 mcg QAM OLIMPIA Administration Donepezil HCl 10 mg 07/31/23 21:00 08/01/23 20:59 Donepezil Hcl 10 Mg Tab PO 08/30/23 20:59 10 mg HS OLIMPIA Administration Ezetimibe 10 mg 08/01/23 09:00 08/02/23 08:41 Ezetimibe 10 Mg Tab PO 08/31/23 08:59 10 mg QAM OLIMPIA Administration Fluticasone Propionate 2 sprays 08/01/23 09:00 08/02/23 08:41 Fluticasone Propionate Na Spr 16 Gm Btl CHERIE 08/31/23 08:59 2 sprays DAILY OLIMPIA Administration Folic Acid 1 mg 08/01/23 10:45 08/02/23 08:41 Folic Acid 1 Mg Tab PO 08/31/23 10:44 1 mg QAM OLIMPIA Administration Gabapentin 300 mg 07/31/23 21:00 08/02/23 08:41 Gabapentin 300 Mg Cap PO 08/30/23 20:59 300 mg BID OLIMPIA Administration Pantoprazole Sodium 40 mg/ 100 mls @ 20 mls/hr 07/31/23 21:45 08/02/23 10:13 Dextrose IV 08/30/23 21:44 8 mg/hr Q5H OLIMPIA 20 mls/hr Administration 8 MG/HR Cefepime HCl 2,000 mg/ Syringe 20 mls @ 5 mls/min 08/01/23 06:00 08/02/23 05:14 IV 08/11/23 05:59 5 mls/min Q12H OLIMPIA Administration Protocol Lactated Ringer's 1,000 mls @ 125 mls/hr 08/01/23 02:00 08/02/23 04:24 Lr IV 08/31/23 01:59 125 mls/hr .Q8H OLIMPIA Infusion Insulin Aspart 0 units 07/31/23 16:30 08/02/23 08:31 Insulin Aspart Per Unit Charge SC 08/30/23 16:29 Not Given ACHS OLIMPIA Insulin Glargine 0 - 12 units 07/31/23 21:00 08/02/23 08:39 Lantus Per Unit Charge SQ 08/30/23 20:59 8 units BID OLIMPIA Administration Levothyroxine Sodium 50 mcg 08/01/23 06:30 08/02/23 05:15 Levothyroxine Sodium 50 Mcg Tablet PO 08/31/23 06:29 50 mcg DAILYBB OLIMPIA Administration Mirtazapine 30 mg 07/31/23 21:00 08/01/23 21:00 Mirtazapine Tab 15 Mg Tab PO 08/30/23 20:59 30 mg HS OLIMPIA Administration Ropinirole HCl 0.5 mg 07/31/23 21:00 08/01/23 20:58 Ropinirole Hcl 0.25 Mg Tablet PO 08/30/23 20:59 0.5 mg HS OLIMPIA Administration Venlafaxine HCl 75 mg 08/01/23 09:00 08/02/23 08:41 Venlafaxine Hcl Xr 75 Mg Capxr PO 08/31/23 08:59 75 mg QAM OLIMPIA Administration
[2023-08-02] MEDS ORDERED: IRON SUCROSE 300 MG in SODIUM CHLORIDE 0.9% 250 ML IV SCH (07:45)
[2023-08-02] MEDS: INSULIN ASPART PER UNIT CHARGE SC SCH ×4 (08:31→21:03)
[2023-08-02] MEDS: LANTUS PER UNIT CHARGE SQ SCH ×2 (08:39→21:03)
[2023-08-02] MEDS: CYANOCOBALAMIN 1000 MCG/ML VIAL IM SCH (08:40)
[2023-08-02] MEDS: FOLIC ACID 1 MG TAB PO SCH (08:41)
[2023-08-02] MEDS: EZETIMIBE 10 MG TAB PO SCH (08:41)
[2023-08-02] MEDS: VENLAFAXINE HCL XR 75 MG CAPXR PO SCH (08:41)
[2023-08-02] MEDS: FLUTICASONE PROPIONATE NA SPR 16 GM BTL NAE SCH (08:41)
[2023-08-02] MEDS: GABAPENTIN 300 MG CAP PO SCH ×2 (08:41→20:56)
--- NOTE | 2023-08-02 10:13 | Communication Note ---
Date of Service: August 02, 2023 1 Unit of yung-negative blood identified, however, Rh+ and patient is Rh- Issue: 1) blood is located in [place], [place] 2) Rh+ will complicate future transfusion, no yung- negative with RH+ com -If hemodynamically unstable, worst case scenario and florid hemorrhage, would need aggressive pretreatment as well as monitoring for delayed hemolytic anemia post transfusion -Anti-yung delayed transfusion becomes more serious regarding anti-uyng transfusion -Would not recommend unless absolutely necessary Per Dr. Baker PLEASE AVOID TRANSFUSION UNLESS YUNG-NEGATIVE and RH- unit
[2023-08-02] MEDS ORDERED: OPTIRAY 320 125ml IV ONE (11:55)
--- NOTE | 2023-08-02 12:20 | CT Scan Report ---
CT ANGIOGRAM OF THE ABDOMEN AND PELVIS CLINICAL HISTORY: Acute anemia. COMPARISON STUDY: Abdominal CT dated 05/26/2019. TECHNIQUE: Following the IV administration of 115 cc of Optiray 320, CT angiogram of the abdomen and pelvis was performed from the lung bases the proximal femora. Images are reviewed in the axial, sagit luis, and coronal planes. 3-D MIPS images are created and assessed. IV contrast was administered witho ut complication. A dose lowering technique was utilized adhering to the principles of ALARA. FINDINGS: Lower chest: The heart is normal in size and without pericardial effusion. The coronary arteries are densely calcified. There is trace left pleural effusion and bibasilar atelectasis. Subpleural reticul ation is noted at both lung bases. No airspace consolidation is seen typical for pneumonia. Liver: The contrast-enhanced liver is top normal in size and demonstrates diffusely diminished attenu ation indicating steatosis. Fatty sparing is seen adjacent to the gallbladder fossa. There is no intr ahepatic biliary ductal dilatation. The main portal veins appear patent. Gallbladder: The gallbladder is distended but otherwise normal in appearance. Spleen: Normal in size and attenuation noting heterogeneous arterial phase enhancement. Pancreas: Unremarkable. Adrenal glands: Unremarkable. Kidneys: The contrast enhanced kidneys are normal in size and without hydronephrosis. The kidneys enh ance symmetrically. Abdominal aorta and iliac arteries: There is advanced atherosclerotic calcification an moderate ectas ia of the abdominal aorta. No aneurysm or dissection is seen. The abdominal aorta is widely patent. T he iliac arteries are diminutive but patent noting advanced atherosclerotic plaque and irregularity.. Major branches of the abdominal aorta: The celiac trunk, superior mesenteric, and inferior mesenteric arteries are patent. 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 There is mild stenosis at the origin of the superior mesenteric artery. There is a replaced right hepatic artery which arises from the superior mesenteric artery. The splenic artery is patent. Single bilateral renal arteries are patent. Bowel: There is mild/moderate colonic fecal retention. No bowel obstruction is identified. The append ix is not identified and reported surgically absent. Peritoneum/retroperitoneum: There is no intraperitoneal free air or abdominal ascites. No intraperito daryl or retroperitoneal hemorrhage is identified. Lymphadenopathy: None. Pelvic viscera: The bladder wall is mildly thickened and there is pericystic infiltration. The uterus and adnexa are normal as imaged. Skeletal structures: The skeletal structures are osteopenic. There is mild/moderate lumbosacral spon dylosis. Postoperative change is seen involving the spinous processes in the lower lumbar region. No lytic or blastic lesions are seen. There are subacute appearing bilateral rib fractures. IMPRESSION: 1. Advanced atherosclerotic change with no acute abnormality identified involving the abdominal aorta . 2. 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 Mild stenosis is seen at the origi n of the superior mesenteric artery. 3. There is no CT evidence of intra-abdominal bleeding. 4. Hepatic steatosis. 5. Question cystitis. Correlate with clinical findings and urinalysis. 6. The gallbladder is distended with no CT evidence of acute cholecystitis. Correlate with clinical a nd laboratory findings. 7. Trace left pleural effusion. 8. Additional findings as above. ACT 112: Negative or not required by law. Electronically signed by: Christopher Zuniga M.D. 08/02/2023 12:18 PM
--- NOTE | 2023-08-02 14:00 | CT Scan Report ---
CT angio chest w con CT DOSE: 1050.78 mGy.cm HISTORY: 68 years-old Female with acute anemia, unclear eitology. Acute chest pain with anemia. TECHNIQUE: Multiple CTA images of the chest were obtained after the intravenous administration of 115 ml Optiray. Coronal and sagittal MIPS were obtained from the axial data set and were submitted for review. All measurements were obtained according to NASCET criteria. A dose lowering technique was u tilized adhering to the principles of ALARA. COMPARISON: CTA abdomen and pelvis of same day, CTA chest 10/03/2017. FINDINGS: CTA: Heart is normal in size. No pericardial effusion. Moderate to extensive coronary artery calcification s. Atherosclerosis of the aorta with unchanged chronic short segment high-grade stenosis/near occlusi on with distal reconstitution of flow within the left subclavian artery. Unremarkable pulmonary arter y. CT CHEST: No thyroid nodule identified. No pathologically enlarged lymph nodes. Subcentimeter mediastinal and d istal periesophageal lymph nodes measure up to 9 mm. Additional borderline enlarged gastrohepatic lym ph nodes measure up to 11 mm. These appear chronic. Trace pleural effusions. Mild dependent subsegmental bibasilar atelectasis. Bilateral subpleural reti culation compatible with fibrosis with mild pulmonary emphysema and bronchial wall thickening compati ble with bronchitis. No pneumothorax, pleural effusion, lobar airspace consolidation, suspicious pulm onary nodule or mass. Unremarkable soft tissues. No acute fracture. Partially imaged cervical spinal fusion hardware. IMPRESSION: 1. No acute aortic pathology or pulmonary emboli identified. 2. Trace pleural effusions with mild bibasilar atelectasis. 3. Emphysema with bronchitis and mild fibrosis. 4. Additional findings as above. ACT 112: Negative or not required by law. The above report was generated using voice recognition software. It may contain grammatical, syntax o r spelling errors. Dictated: 08/02/2023 12:27 PM Transcribed: 08/02/2023 1:27 PM Nichelle [phone] Jadyn [id number] Electronically signed by: Shyam Gonzalez M.D. 08/02/2023 1:59 PM
[2023-08-02] MEDS: rOPINIRole HCL 0.25 MG TABLET PO SCH (20:55)
[2023-08-02] MEDS: ATORVASTATIN 40 MG TAB PO SCH (20:55)
[2023-08-02] MEDS: MIRTAZAPINE TAB 15 MG TAB PO SCH (20:55)
[2023-08-02] MEDS: DONEPEZIL HCL 10 MG TAB PO SCH (20:56)
[2023-08-03] MEDS: PANTOprazole 40 MG in DEXTROSE 5% MINI-B 100 ML IV SCH ×5 (01:26→22:15)
[2023-08-03] MEDS: CEFEPIME 2,000 MG in SYRINGE 0 ML IV SCH (05:31)
[2023-08-03] MEDS: LEVOTHYROXINE SODIUM 50 MCG TABLET PO SCH (05:32)
--- NOTE | 2023-08-03 06:47 | Electrocardiogram Report ---
Test Reason : Blood Pressure : / mmHG Vent. Rate : 094 BPM Atrial Rate : 094 BPM P-R Int : 144 ms QRS Dur : 068 ms QT Int : 356 ms P-R-T Axes : 060 055 152 degrees QTc Int : 445 ms Normal sinus rhythm Septal infarct , age undetermined Nonspecific ST and T wave abnormality Abnormal ECG When compared with ECG of 25-MAY-2019 07:04, Septal infarct is now Present T wave inversion no longer evident in Anterolateral leads Confirmed by Magan Moore ([id number]) on 08/03/2023 6:47:15 AM Referred By: REFERRED SELF Confirmed By:Magan Moore
[2023-08-03 07:02] LABS: Hematocrit (blood only) 19.3 % (37.0-47.0); Hemoglobin 5.8 g/dl (12.0-16.0); Mean Corpuscular Hemoglobin 30.9 pg (25.0-34.0); Mean Corpuscular Hgb Conc 30.1 g/dL (32.0-36.0); Mean Corpuscular Volume 102.7 fL (80.0-100.0); Mean Platelet Volume 10.6 fL (9.4-12.4); Nucleated RBC # (auto) 0.25 K/uL (0.00-0.12); Nucleated RBC % (auto) 4.7 %; Platelet Count 264 K/uL (130-400); RDW Coefficient of Variation 22.5 % (11.5-14.5); RDW Standard Deviation 84.1 fL (36.4-46.3); Red Blood Count 1.88 M/uL (4.20-5.40); White Blood Count 5.35 K/ul (4.8-10.8)
[2023-08-03] MEDS ORDERED: IRON SUCROSE 300 MG in SODIUM CHLORIDE 0.9% 250 ML IV ONE (07:15)
[2023-08-03 07:33] LABS: BUN Creatinine Ratio 10.5 (10-20); Calcium 8.3 mg/dl (8.6-10.3); Creatinine Clr Calc Pharmacy 57.5 ml/min; Est GFR (African American) 80.5 ml/min; Est GFR (Non-African American) 69.4 ml/min; Phosphorus 3.8 mg/dl (2.5-4.9); Potassium 3.9 mmol/L (3.5-5.1)
[2023-08-03] MEDS: INSULIN ASPART PER UNIT CHARGE SC SCH ×4 (07:46→20:24)
[2023-08-03] MEDS: CYANOCOBALAMIN 1000 MCG/ML VIAL IM SCH (07:48)
[2023-08-03] MEDS: EZETIMIBE 10 MG TAB PO SCH (07:49)
[2023-08-03] MEDS: FOLIC ACID 1 MG TAB PO SCH (07:49)
[2023-08-03] MEDS: VENLAFAXINE HCL XR 75 MG CAPXR PO SCH (07:49)
[2023-08-03] MEDS: GABAPENTIN 300 MG CAP PO SCH ×2 (07:49→20:17)
[2023-08-03] MEDS: FLUTICASONE PROPIONATE NA SPR 16 GM BTL NAE SCH (07:50)
[2023-08-03] MEDS: LANTUS PER UNIT CHARGE SQ SCH ×2 (07:53→20:25)
[2023-08-03 09:45] LABS: Basophils # (auto) 0.05 K/uL (0.00-0.20); Eosinophils # (auto) 0.23 K/uL (0.00-0.50); Eosinophils % (auto) 4.4 %; Immature Granulocytes # (auto) 0.08 K/uL (0.01-0.20); Immature Granulocytes % (auto) 1.5 %; Lymphocytes # (auto) 0.99 K/uL (1.20-3.40); Monocytes # (auto) 0.91 K/uL (0.11-0.59); Monocytes % (auto) 17.5 %; Neutrophils # (auto) 2.95 K/uL (1.40-6.50); Neutrophils % (auto) 56.6 %
[2023-08-03 09:55] LABS: Appearance Urine Clear (Clear); Bacteria Urine Automated Negative (Negative); Bilirubin Urine Negative (Negative); Blood Urine Negative (Negative); Cast Urine Automated 0 /lpf (0-5); Color Urine Yellow; Epithelial Cell Urine Auto 0-5 /lpf (0-5); Glucose Urine UA Negative (Negative); Ketones Urine Negative (Negative); Leukocyte Esterase Urine Trace (Negative); Nitrite Urine Negative (Negative); Protein Urine Negative (Negative); RBC Urine Automated 0-4 /hpf (0-4); Specific Gravity Urine 1.015 (1.000-1.030); Urobilinogen Urine Negative (Negative); pH Urine 6.5 (4.5-7.5)
[2023-08-03 10:22] LABS: Anisocytosis Present; Polychromasia 2+; Tear Drop Cells 1+
[2023-08-03] MEDS: ERTAPENEM SODIUM 1,000 MG in SYRINGE 0 ML IV SCH (12:31)
--- NOTE | 2023-08-03 17:32 | Hospitalist Progress Note ---
Date of Service August 03, 2023 Assessment & Plan (1) Sepsis: (2) Urinary tract infection: (3) Generalized weakness: (4) Anemia: (5) Hypertension: (6) History of CVA with residual deficit: (7) CREST syndrome: (8) Hypothyroidism: (9) PVD (peripheral vascular disease): (10) DM type 2 (diabetes mellitus, type 2): (11) Carotid stenosis: (12) Mood disorder: Plan is a 64-year-old female who has significant PMH of DM II on insulin, hx of CVA with residual aphasia/R sided weakness, carotid artery stenosis, L subclavian occlusion, HTN, HLD, COPD, Hypothyroidism, GERD, Scleroderma/CREST syn, Mood disorder, Depression with anxiety who presents to [facility] ED secondary to overall feeling weak x 2 days prior to arrival and was found to have sepsis 2/2 UTI. Patient admitted on 07/31 for management of sepsis. Initial labs notable for hgb lower than recent OP records, trend revealed concern for active bleed as hgb went from 7.9 to 6.2. Transfusion delayed given antivel antibody presence, which is notably very rare and finding a unit is difficult--currently [facility] attempting to locate a unit for patient. Urine is notable for GNB, however, in hopes to optimize anemia without blood product, IV iron will be admitted as risk of possible re-infection less than benefit of optimizing anemia in this setting. Search for Lukas-negative, Rh- blood continues. CTA chest/abd/pelvis for signs of bleed negative Discussed with Pathology: Red Blood Cells located in [place]--2 Units of lukas negative, rh- blood. attempting to have untis fedex'd with anticipated arrival on Sunday #Acute on chronic macrocytic anemia #Anti-lukas antibody #Iron deficiency anemia #B12 deficiency -History of iron deficiency, on chronic supplementation -Ongoing conversations with Blood Bank--coordinating blood with lukas-negative type to ensure no transfusion reaction as pretreatment likely not able to stave of reaction from transfusion -See antibiody ID note for details on discussion with Dr. Baker from [place] regarding transfusion "very risky, very last resort" -Will treat patient similar to [employer]/blood refusal and optimize anemia where possible -Continue B12 IM injection, B12 level 82 -Continue empiric folic acid 1g daily -Continue Iron Sucrose infusions for goal ferritin >100 and TIBC >20% -Iron panel in am -minimize hgb draws daily -Heme/onc consult for further anemia optimization -No further recommendations -Transfuse when blood product available -Hopefully 08/05 -Hold ASA/plavix at this time -Will need to resume likely plavix once blood is stable -GI consulted -Regular diet -EGD when hgb > 7 -Anemia labs not suggestive of hemolysis, DIC, myelodysplasia -Smear consistent with anemia (chronic disease, nutritional deficiencies, renal disease) #Sepsis 2/2 UTI, ecoli #Acute urinary tract infection POA Hypotensive and tachycardic initially, improved BP to 105/77 and HR 95 after 2L NSS. 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 Large area of encephalomalacia within the left MCA territory compatible with chronic infarct(s), increased in size compared to the 2018 comparison. Expect this will improve with treatment of infection Fall precautions, PT/OT Continue statin hold plavix/asa until hgb stable and s/p scope #DM type 2 (diabetes mellitus, type 2) A1c 5.3 in Feb 2023 Hold home PO meds Basal/bolus insulin per protocol while in-patient BSG checks AC HS #Hypertension Hypotensive in setting of sepsis- hold losartan until BP improves #Hypothyroidism Continue levothyroxine #Mood disorder Continue Mirtazapine, trazodone, venlafaxine #CREST syndrome Has some chronic skin lesions. Not on medications DVT Ppx: SCDs for now Code status: FULL PCP: Renae Dispo: Admitted to PCU. Plan to return home once medically stable and after PT/OT eval Admission and Anticipated Discharge Date Admission Date: July 31, 2023 Subjective NAEO Patient appears more awake and interactive, eager to try and work with PT. Feels less tired than day before Physical Exam Constitutional: WD/WN, vitals as above Respiratory: normal respiratory effort, lungs clear to auscultation Cardiovascular: RRR, no murmur, no edema Gastrointestinal (Abdomen): normal bowel sounds, soft, nontender, no hepatosplenomegaly Results & Data Results & Data Vital Signs (Past 12 Hours) Vital Signs Temp Pulse Resp BP BP Pulse Ox Pulse Ox 08/03/23 15:33 36.6 C 85 19 117/75 97 08/03/23 14:24 93 08/03/23 13:29 92 H 122/65 08/03/23 13:28 80 114/58 L 08/03/23 11:28 36.3 C L 80 18 115/74 98 08/03/23 07:36 36.2 C L 75 18 108/54 L 98 Pulse Ox O2 Del Method O2 Flow Rate O2 Flow Rate O2 Flow Rate 08/03/23 15:33 Nasal Cannula 2 08/03/23 14:24 83 L 2 0 08/03/23 13:29 08/03/23 13:28 08/03/23 11:28 Room Air 08/03/23 07:36 Nasal Cannula 2 Laboratory Results Short CBC 08/03/23 Range/Units 05:48 WBC 5.35 (4.8-10.8) K/ul Hgb 5.8 L* (12.0-16.0) g/dl Hct 19.3 L* (37.0-47.0) % Plt Count 264 (130-400) K/uL BMP 08/03/23 05:48 Sodium 141 Potassium 3.9 Chloride 108 H Carbon Dioxide 30 BUN 9 Creatinine 0.86 Glucose 102 H Calcium 8.3 L Urine 08/03/23 Range/Units Unknown Urine Color Yellow Urine Appearance Clear (Clear) Urine pH 6.5 (4.5-7.5) Ur Specific [place] 1.015 (1.000-1.030) Urine Protein Negative (Negative) Urine Glucose (UA) Negative (Negative) Medications Administered Home Medications Medication Instructions Recorded Confirmed Last Taken atorvastatin 80 mg tablet 80 mg PO HS 07/14/18 07/31/23 11/23/21 bisacodyl 5 mg tablet,delayed 5 mg PO HS PRN Constipation 07/14/18 07/31/23 07/13/18 release (Dulcolax (bisacodyl)) docusate calcium 240 mg capsule 240 mg PO DAILY PRN Constipation 07/14/18 07/31/23 07/13/18 (Stool Softener (docusate calcium)) donepezil 10 mg tablet 10 mg PO HS 07/14/18 07/31/23 11/23/21 ezetimibe 10 mg tablet 10 mg PO QAM 07/14/18 07/31/23 11/23/21 ferrous sulfate 325 mg (65 mg 650 mg PO QAM 07/14/18 07/31/23 11/23/21 iron) tablet loratadine 10 mg tablet (Claritin) 10 mg PO HS PRN allergies 07/14/18 07/31/23 11/23/21 losartan 25 mg tablet 12.5 mg PO QAM 07/14/18 07/31/23 11/23/21 metformin 500 mg tablet,extended 1,000 mg PO BID 07/14/18 07/31/23 11/23/21 release 24 hr mirtazapine 30 mg tablet 30 mg PO HS 07/14/18 07/31/23 11/23/21 ropinirole 0.5 mg tablet 0.5 mg PO HS 07/14/18 07/31/23 11/23/21 trazodone 50 mg tablet 50 mg PO HS PRN Pain 07/14/18 07/31/23 10/26/21 venlafaxine 75 mg tablet 75 mg PO QAM 07/14/18 07/31/23 11/23/21 insulin glargine 100 unit/mL (3 24 unit subcut QA 05/12/19 07/31/23 11/23/21 mL) subcutaneous pen (Hans Bender U-100 Insulin) clopidogrel 75 mg tablet (Plavix) 75 mg PO QAM 08/25/19 07/31/23 11/23/21 aspirin 81 mg capsule 81 mg PO DAILY 07/31/23 07/31/23 Unknown dulaglutide 0.75 mg/0.5 mL 0.75 mg subcut WK 07/31/23 07/31/23 Unknown subcutaneous pen injector (Trulicity) fluticasone propionate 50 2 spray intranasal DAILY 07/31/23 07/31/23 Unknown mcg/actuation nasal spray,suspension gabapentin 300 mg capsule 300 mg PO BID 07/31/23 07/31/23 Unknown levothyroxine 50 mcg tablet 50 mcg PO DAILY 07/31/23 07/31/23 Unknown pantoprazole 40 mg tablet,delayed 40 mg PO QAM 07/31/23 07/31/23 Unknown release Active Medications Generic Name Dose Route Start Last Admin Trade Name Aly PRN Reason Stop Dose Admin Atorvastatin Calcium 80 mg 07/31/23 21:00 08/02/23 20:55 Atorvastatin 40 Mg Tab PO 08/30/23 20:59 80 mg HS OLIMPIA Administration Cyanocobalamin 1,000 mcg 08/01/23 10:45 08/03/23 07:48 Cyanocobalamin 1000 Mcg/Ml Vial IM 08/31/23 10:44 1,000 mcg QAM OLIMPIA Administration Donepezil HCl 10 mg 07/31/23 21:00 08/02/23 20:56 Donepezil Hcl 10 Mg Tab PO 08/30/23 20:59 10 mg HS OLIMPIA Administration Ezetimibe 10 mg 08/01/23 09:00 08/03/23 07:49 Ezetimibe 10 Mg Tab PO 08/31/23 08:59 10 mg QAM OLIMPIA Administration Fluticasone Propionate 2 sprays 08/01/23 09:00 08/03/23 07:50 Fluticasone Propionate Na Spr 16 Gm Btl CHERIE 08/31/23 08:59 2 sprays DAILY OLIMPIA Administration Folic Acid 1 mg 08/01/23 10:45 08/03/23 07:49 Folic Acid 1 Mg Tab PO 08/31/23 10:44 1 mg QAM OLIMPIA Administration Gabapentin 300 mg 07/31/23 21:00 08/03/23 07:49 Gabapentin 300 Mg Cap PO 08/30/23 20:59 300 mg BID OLIMPIA Administration Pantoprazole Sodium 40 mg/ 100 mls @ 20 mls/hr 07/31/23 21:45 08/03/23 17:10 Dextrose IV 08/30/23 21:44 8 mg/hr Q5H OLIMPIA 20 mls/hr Administration 8 MG/HR Ertapenem 1,000 mg/ Syringe 10 mls @ 2 mls/min 08/03/23 12:00 08/03/23 12:31 IV 08/13/23 11:59 2 mls/min Q24H OLIMPIA Administration Insulin Aspart 0 units 07/31/23 16:30 08/03/23 16:21 Insulin Aspart Per Unit Charge SC 08/30/23 16:29 Not Given ACHS OLIMPIA Insulin Glargine 0 - 12 units 07/31/23 21:00 08/03/23 07:53 Lantus Per Unit Charge SQ 08/30/23 20:59 8 units BID OLIMPIA Administration Levothyroxine Sodium 50 mcg 08/01/23 06:30 08/03/23 05:32 Levothyroxine Sodium 50 Mcg Tablet PO 08/31/23 06:29 50 mcg DAILYBB OLIMPIA Administration Mirtazapine 30 mg 07/31/23 21:00 08/02/23 20:55 Mirtazapine Tab 15 Mg Tab PO 08/30/23 20:59 30 mg HS OLIMPIA Administration Ropinirole HCl 0.5 mg 07/31/23 21:00 08/02/23 20:55 Ropinirole Hcl 0.25 Mg Tablet PO 08/30/23 20:59 0.5 mg HS OLIMPIA Administration Venlafaxine HCl 75 mg 08/01/23 09:00 08/03/23 07:49 Venlafaxine Hcl Xr 75 Mg Capxr PO 08/31/23 08:59 75 mg QAM OLIMPIA Administration
[2023-08-03] MEDS: rOPINIRole HCL 0.25 MG TABLET PO SCH (20:16)
[2023-08-03] MEDS: ATORVASTATIN 40 MG TAB PO SCH (20:16)
[2023-08-03] MEDS: DONEPEZIL HCL 10 MG TAB PO SCH (20:17)
[2023-08-03] MEDS: MIRTAZAPINE TAB 15 MG TAB PO SCH (20:17)
[2023-08-04] MEDS: PANTOprazole 40 MG in DEXTROSE 5% MINI-B 100 ML IV SCH ×5 (03:19→23:31)
[2023-08-04] MEDS: LEVOTHYROXINE SODIUM 50 MCG TABLET PO SCH (05:58)
--- NOTE | 2023-08-04 06:03 | Electrocardiogram Report ---
Test Reason : Blood Pressure : / mmHG Vent. Rate : 083 BPM Atrial Rate : 083 BPM P-R Int : 144 ms QRS Dur : 068 ms QT Int : 432 ms P-R-T Axes : 065 051 140 degrees QTc Int : 508 ms Normal sinus rhythm T wave abnormality, consider anterior ischemia Prolonged QT Abnormal ECG When compared with ECG of 31-JUL-2023 09:43, Criteria for Septal infarct are no longer Present Inverted T waves have replaced nonspecific T wave abnormality in Anterior leads Confirmed by Magan Moore ([id number]) on 08/04/2023 6:03:09 AM Referred By: REFERRED SELF Confirmed By:Magan Moore
[2023-08-04 06:42] LABS: Hematocrit (blood only) 19.5 % (37.0-47.0); Mean Corpuscular Hemoglobin 31.7 pg (25.0-34.0); Mean Corpuscular Hgb Conc 30.8 g/dL (32.0-36.0); Mean Corpuscular Volume 103.2 fL (80.0-100.0); Mean Platelet Volume 10.7 fL (9.4-12.4); Nucleated RBC # (auto) 0.43 K/uL (0.00-0.12); Nucleated RBC % (auto) 6.4 %; Platelet Count 302 K/uL (130-400); RDW Coefficient of Variation 22.9 % (11.5-14.5); RDW Standard Deviation 83.9 fL (36.4-46.3); Red Blood Count 1.89 M/uL (4.20-5.40); White Blood Count 6.75 K/ul (4.8-10.8)
--- NOTE | 2023-08-04 06:54 | Hospitalist Progress Note ---
Date of Service August 04, 2023 Assessment & Plan (1) Sepsis: (2) Urinary tract infection: (3) Generalized weakness: (4) Anemia: (5) Hypertension: (6) History of CVA with residual deficit: (7) CREST syndrome: (8) Hypothyroidism: (9) PVD (peripheral vascular disease): (10) DM type 2 (diabetes mellitus, type 2): (11) Carotid stenosis: (12) Mood disorder: Plan is a 64-year-old female who has significant PMH of DM II on insulin, hx of CVA with residual aphasia/R sided weakness, carotid artery stenosis, L subclavian occlusion, HTN, HLD, COPD, Hypothyroidism, GERD, Scleroderma/CREST syn, Mood disorder, Depression with anxiety who presents to [facility] ED secondary to overall feeling weak x 2 days prior to arrival and was found to have sepsis 2/2 UTI. Patient admitted on 07/31 for management of sepsis. Initial labs notable for hgb lower than recent OP records, trend revealed concern for active bleed as hgb went from 7.9 to 6.2. Transfusion delayed given antivel antibody presence, which is notably very rare and finding a unit is difficult--currently [facility] attempting to locate a unit for patient. Urine is notable for GNB, however, in hopes to optimize anemia without blood product, IV iron will be admitted as risk of possible re-infection less than benefit of optimizing anemia in this setting. Search for Lukas-negative, Rh- blood continues. CTA chest/abd/pelvis for signs of bleed negative Discussed with Pathology: Red Blood Cells located in [place]--2 Units of lukas negative, rh- blood. attempting to have untis fedex'd with anticipated arrival on Sunday Patient's hemoglobin remaining low, but stable. Hgb with slight drift up to 6.0 this am. All other labs appropriate. #Acute on chronic macrocytic anemia #Anti-lukas antibody #Iron deficiency anemia #B12 deficiency -History of iron deficiency, on chronic supplementation -Ongoing conversations with Blood Bank--coordinating blood with lukas-negative type to ensure no transfusion reaction as pretreatment likely not able to stave of reaction from transfusion -See antibiody ID note for details on discussion with Dr. Baker from [place] regarding transfusion "very risky, very last resort" -Will treat patient similar to [employer]/blood refusal and optimize anemia where possible -Continue B12 IM injection, B12 level 82 -Continue empiric folic acid 1g daily -Continue Iron Sucrose infusions for goal ferritin >100 and TIBC >20% -Iron panel in am -minimize hgb draws daily -Heme/onc consult for further anemia optimization -No further recommendations -Transfuse when blood product available -Hopefully 08/05 -Hold ASA/plavix at this time -Will need to resume likely plavix once blood is stable -GI consulted -Regular diet -EGD when hgb > 7 -Anemia labs not suggestive of hemolysis, DIC, myelodysplasia -Smear consistent with anemia (chronic disease, nutritional deficiencies, renal disease) -Stat type and screen plan for 1 Unit transfusion as soon as blood arrives; if patient tolerates will pursue secondary unit #Sepsis 2/2 UTI, ecoli #Acute urinary tract infection POA Hypotensive and tachycardic initially, improved BP to 105/77 and HR 95 after 2L NSS. 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 Large area of encephalomalacia within the left MCA territory compatible with chronic infarct(s), increased in size compared to the 2018 comparison. Expect this will improve with treatment of infection Fall precautions, PT/OT Continue statin hold plavix/asa until hgb stable and s/p scope #DM type 2 (diabetes mellitus, type 2) A1c 5.3 in Feb 2023 Hold home PO meds Basal/bolus insulin per protocol while in-patient BSG checks AC HS #Hypertension Hypotensive in setting of sepsis- hold losartan until BP improves #Hypothyroidism Continue levothyroxine #Mood disorder Continue Mirtazapine, trazodone, venlafaxine #CREST syndrome Has some chronic skin lesions. Not on medications DVT Ppx: SCDs for now Code status: FULL PCP: Renae Dispo: Admitted to PCU. Plan for likely rehab at this time Admission and Anticipated Discharge Date Admission Date: July 31, 2023 Subjective Contingent on weather/Fedex, unit of blood potentially to arrive 08/05 CHERIEO, reports feeling marginally better today; denies any chest pain, palpitations or other acute concerns Spoke with son, Franklin, and [id number], Ginny--they have POA. Update given regarding blood in transit. Physical Exam Constitutional: WD/WN, vitals as above Respiratory: normal respiratory effort, lungs clear to auscultation Cardiovascular: RRR, no murmur, no edema Gastrointestinal (Abdomen): normal bowel sounds, soft, nontender, no hepatosplenomegaly Results & Data Results & Data Vital Signs (Past 12 Hours) Vital Signs Temp Pulse Pulse Resp BP Pulse Ox O2 Del Method 08/04/23 03:42 36.4 C L 86 17 125/73 99 Nasal Cannula 08/03/23 23:00 36.8 C 90 17 121/69 98 Nasal Cannula 08/03/23 21:58 88 08/03/23 20:00 Nasal Cannula 08/03/23 19:30 37.1 C 90 17 103/64 99 Nasal Cannula O2 Flow Rate 08/04/23 03:42 2 08/03/23 23:00 2 08/03/23 21:58 08/03/23 20:00 2 08/03/23 19:30 2 Laboratory Results Short CBC 08/04/23 Range/Units 06:01 WBC 6.75 (4.8-10.8) K/ul Hgb 6.0 L* (12.0-16.0) g/dl Hct 19.5 L* (37.0-47.0) % Plt Count 302 (130-400) K/uL Medications Administered Home Medications Medication Instructions Recorded Confirmed Last Taken atorvastatin 80 mg tablet 80 mg PO HS 07/14/18 07/31/23 11/23/21 bisacodyl 5 mg tablet,delayed 5 mg PO HS PRN Constipation 07/14/18 07/31/23 07/13/18 release (Dulcolax (bisacodyl)) docusate calcium 240 mg capsule 240 mg PO DAILY PRN Constipation 07/14/18 07/31/23 07/13/18 (Stool Softener (docusate calcium)) donepezil 10 mg tablet 10 mg PO HS 07/14/18 07/31/23 11/23/21 ezetimibe 10 mg tablet 10 mg PO QAM 07/14/18 07/31/23 11/23/21 ferrous sulfate 325 mg (65 mg 650 mg PO QAM 07/14/18 07/31/23 11/23/21 iron) tablet loratadine 10 mg tablet (Claritin) 10 mg PO HS PRN allergies 07/14/18 07/31/23 11/23/21 losartan 25 mg tablet 12.5 mg PO QAM 07/14/18 07/31/23 11/23/21 metformin 500 mg tablet,extended 1,000 mg PO BID 07/14/18 07/31/23 11/23/21 release 24 hr mirtazapine 30 mg tablet 30 mg PO HS 07/14/18 07/31/23 11/23/21 ropinirole 0.5 mg tablet 0.5 mg PO HS 07/14/18 07/31/23 11/23/21 trazodone 50 mg tablet 50 mg PO HS PRN Pain 07/14/18 07/31/23 10/26/21 venlafaxine 75 mg tablet 75 mg PO QAM 07/14/18 07/31/23 11/23/21 insulin glargine 100 unit/mL (3 24 unit subcut QAM 05/12/19 07/31/23 11/23/21 mL) subcutaneous pen (Basaglar KwikPen U-100 Insulin) clopidogrel 75 mg tablet (Plavix) 75 mg PO QAM 08/25/19 07/31/23 11/23/21 aspirin 81 mg capsule 81 mg PO DAILY 07/31/23 07/31/23 Unknown dulaglutide 0.75 mg/0.5 mL 0.75 mg subcut WK 07/31/23 07/31/23 Unknown subcutaneous pen injector (Trulicity) fluticasone propionate 50 2 spray intranasal DAILY 07/31/23 07/31/23 Unknown mcg/actuation nasal spray,suspension gabapentin 300 mg capsule 300 mg PO BID 07/31/23 07/31/23 Unknown levothyroxine 50 mcg tablet 50 mcg PO DAILY 07/31/23 07/31/23 Unknown pantoprazole 40 mg tablet,delayed 40 mg PO QAM 07/31/23 07/31/23 Unknown release Active Medications Generic Name Dose Route Start Last Admin Trade Name Aly PRN Reason Stop Dose Admin Atorvastatin Calcium 80 mg 07/31/23 21:00 08/03/23 20:16 Atorvastatin 40 Mg Tab PO 08/30/23 20:59 80 mg HS OLIMPIA Administration Cyanocobalamin 1,000 mcg 08/01/23 10:45 08/04/23 08:59 Cyanocobalamin 1000 Mcg/Ml Vial IM 08/31/23 10:44 1,000 mcg QAM OLIMPIA Administration Donepezil HCl 10 mg 07/31/23 21:00 08/03/23 20:17 Donepezil Hcl 10 Mg Tab PO 08/30/23 20:59 10 mg HS OLIMPIA Administration Ezetimibe 10 mg 08/01/23 09:00 08/04/23 08:58 Ezetimibe 10 Mg Tab PO 08/31/23 08:59 10 mg QAM OLIMPIA Administration Fluticasone Propionate 2 sprays 08/01/23 09:00 08/04/23 08:59 Fluticasone Propionate Na Spr 16 Gm Btl CHERIE 08/31/23 08:59 2 sprays DAILY OLIMPIA Administration Folic Acid 1 mg 08/01/23 10:45 08/04/23 08:58 Folic Acid 1 Mg Tab PO 08/31/23 10:44 1 mg QAM OLIMPIA Administration Gabapentin 300 mg 07/31/23 21:00 08/04/23 08:58 Gabapentin 300 Mg Cap PO 08/30/23 20:59 300 mg BID OLIMPIA Administration Pantoprazole Sodium 40 mg/ 100 mls @ 20 mls/hr 07/31/23 21:45 08/04/23 13:41 Dextrose IV 08/30/23 21:44 8 mg/hr Q5H OLIMPIA 20 mls/hr Administration 8 MG/HR Ertapenem 1,000 mg/ Syringe 10 mls @ 2 mls/min 08/03/23 12:00 08/04/23 13:42 IV 08/13/23 11:59 2 mls/min Q24H OLIMPIA Administration Insulin Aspart 0 units 07/31/23 16:30 08/04/23 13:41 Insulin Aspart Per Unit Charge SC 08/30/23 16:29 Not Given ACHS OLIMPIA Insulin Glargine 0 - 12 units 07/31/23 21:00 08/04/23 09:05 Lantus Per Unit Charge SQ 08/30/23 20:59 8 units BID OLIMPIA Administration Levothyroxine Sodium 50 mcg 08/01/23 06:30 08/04/23 05:58 Levothyroxine Sodium 50 Mcg Tablet PO 08/31/23 06:29 50 mcg DAILYBB OLIMPIA Administration Mirtazapine 30 mg 07/31/23 21:00 08/03/23 20:17 Mirtazapine Tab 15 Mg Tab PO 08/30/23 20:59 30 mg HS OLIMPIA Administration Ropinirole HCl 0.5 mg 07/31/23 21:00 08/03/23 20:16 Ropinirole Hcl 0.25 Mg Tablet PO 08/30/23 20:59 0.5 mg HS OLIMPIA Administration Venlafaxine HCl 75 mg 08/01/23 09:00 08/04/23 08:58 Venlafaxine Hcl Xr 75 Mg Capxr PO 08/31/23 08:59 75 mg QAM OLIMPIA Administration
[2023-08-04] MEDS: INSULIN ASPART PER UNIT CHARGE SC SCH ×4 (08:56→20:51)
[2023-08-04] MEDS: VENLAFAXINE HCL XR 75 MG CAPXR PO SCH (08:58)
[2023-08-04] MEDS: EZETIMIBE 10 MG TAB PO SCH (08:58)
[2023-08-04] MEDS: FOLIC ACID 1 MG TAB PO SCH (08:58)
[2023-08-04] MEDS: GABAPENTIN 300 MG CAP PO SCH ×2 (08:58→20:33)
[2023-08-04] MEDS: FLUTICASONE PROPIONATE NA SPR 16 GM BTL NAE SCH (08:59)
[2023-08-04] MEDS: CYANOCOBALAMIN 1000 MCG/ML VIAL IM SCH (08:59)
[2023-08-04] MEDS: LANTUS PER UNIT CHARGE SQ SCH ×2 (09:05→20:50)
[2023-08-04] MEDS: ERTAPENEM SODIUM 1,000 MG in SYRINGE 0 ML IV SCH (13:42)
[2023-08-04] MEDS: rOPINIRole HCL 0.25 MG TABLET PO SCH (20:33)
[2023-08-04] MEDS: ATORVASTATIN 40 MG TAB PO SCH (20:34)
[2023-08-04] MEDS: DONEPEZIL HCL 10 MG TAB PO SCH (20:34)
[2023-08-04] MEDS: MIRTAZAPINE TAB 15 MG TAB PO SCH (20:34)
[2023-08-05] MEDS: PANTOprazole 40 MG in DEXTROSE 5% MINI-B 100 ML IV SCH ×5 (04:03→22:53)
[2023-08-05] MEDS: LEVOTHYROXINE SODIUM 50 MCG TABLET PO SCH (06:20)
[2023-08-05 06:59] LABS: Hematocrit (blood only) 27.4 % (37.0-47.0); Hemoglobin 8.3 g/dl (12.0-16.0); Mean Corpuscular Hemoglobin 30.1 pg (25.0-34.0); Mean Corpuscular Hgb Conc 30.3 g/dL (32.0-36.0); Mean Corpuscular Volume 99.3 fL (80.0-100.0); Mean Platelet Volume 11.2 fL (9.4-12.4); Nucleated RBC # (auto) 0.49 K/uL (0.00-0.12); Nucleated RBC % (auto) 6.1 %; Platelet Count 284 K/uL (130-400); RDW Coefficient of Variation 25.4 % (11.5-14.5); RDW Standard Deviation 84.3 fL (36.4-46.3); Red Blood Count 2.76 M/uL (4.20-5.40); White Blood Count 8.08 K/ul (4.8-10.8)
[2023-08-05 07:03] LABS: Anion Gap 4 (3-11); BUN Creatinine Ratio 13.4 (10-20); Blood Urea Nitrogen 11 mg/dl (6-23); C Reactive Protein < 0.50 mg/dl (0-0.5); Calcium 9.2 mg/dl (8.6-10.3); Carbon Dioxide 33 mmol/L (21-32); Chloride 103 mmol/L (98-107); Creatinine Clr Calc Pharmacy 60.3 ml/min; Est GFR (African American) 85.2 ml/min; Est GFR (Non-African American) 73.5 ml/min; Glucose 113 mg/dl (70-99(Fasting)); Magnesium 2.2 mg/dl (1.7-2.4); Phosphorus 3.4 mg/dl (2.5-4.9); Potassium 4.3 mmol/L (3.5-5.1); Sodium 140 mmol/L (136-145)
[2023-08-05 08:44] LABS: Lyme Ab IgM w/WB Rflx Negative (Negative)
[2023-08-05] MEDS: INSULIN ASPART PER UNIT CHARGE SC SCH ×4 (08:58→20:57)
[2023-08-05] MEDS: GABAPENTIN 300 MG CAP PO SCH ×2 (09:03→20:54)
[2023-08-05] MEDS: EZETIMIBE 10 MG TAB PO SCH (09:03)
[2023-08-05] MEDS: FOLIC ACID 1 MG TAB PO SCH (09:03)
[2023-08-05] MEDS: CYANOCOBALAMIN 1000 MCG/ML VIAL IM SCH (09:03)
[2023-08-05] MEDS: VENLAFAXINE HCL XR 75 MG CAPXR PO SCH (09:03)
[2023-08-05] MEDS: LANTUS PER UNIT CHARGE SQ SCH ×2 (09:04→20:56)
[2023-08-05] MEDS: FLUTICASONE PROPIONATE NA SPR 16 GM BTL NAE SCH (09:04)
[2023-08-05 09:25] LABS: Lyme Ab IgG w/WB Rflx Positive (Negative)
--- NOTE | 2023-08-05 12:59 | Hospitalist Progress Note ---
Date of Service August 05, 2023 Assessment & Plan (1) Sepsis: (2) Urinary tract infection: (3) Generalized weakness: (4) Anemia: (5) Hypertension: (6) History of CVA with residual deficit: (7) CREST syndrome: (8) Hypothyroidism: (9) PVD (peripheral vascular disease): (10) DM type 2 (diabetes mellitus, type 2): (11) Carotid stenosis: (12) Mood disorder: Plan is a 64-year-old female who has significant PMH of DM II on insulin, hx of CVA with residual aphasia/R sided weakness, carotid artery stenosis, L subclavian occlusion, HTN, HLD, COPD, Hypothyroidism, GERD, Scleroderma/CREST syn, Mood disorder, Depression with anxiety who presents to [facility] ED secondary to overall feeling weak x 2 days prior to arrival and was found to have sepsis 2/2 UTI. Patient admitted on 07/31 for management of sepsis. Initial labs notable for hgb lower than recent OP records, trend revealed concern for active bleed as hgb went from 7.9 to 6.2. Transfusion delayed given antivel antibody presence, which is notably very rare and finding a unit is difficult--currently [facility] attempting to locate a unit for patient. Urine is notable for GNB, however, in hopes to optimize anemia without blood product, IV iron will be admitted as risk of possible re-infection less than benefit of optimizing anemia in this setting. Search for Lukas-negative, Rh- blood continues. CTA chest/abd/pelvis for signs of bleed negative Discussed with Pathology: Red Blood Cells located in [place]--2 Units of lukas negative, rh- blood. attempting to have untis fedex'd Units of blood received on 08/04 to [place]--however, 1 unit burst while thawing; 1 unit administered Labs from 08/05 with robust response to transfusion, 8.3. Patient reports feeling much improved Plan to talk to family to discussion donation and identifying lukas-negative members -Will need to call reference lab, identify self as potential lukas-negative donors and arrange appointment for testing (Reference lab number [phone], [facility]) Otherwise, patient notably improved. Plan for continued abx, following up on tickbourne/parvo pathologies and resume plavix as tolerated. #Acute on chronic macrocytic anemia #Anti-lukas antibody #Iron deficiency anemia #B12 deficiency -History of iron deficiency, on chronic supplementation -Ongoing conversations with Blood Bank--coordinating blood with lukas-negative type to ensure no transfusion reaction as pretreatment likely not able to stave of reaction from transfusion -See antibiody ID note for details on discussion with Dr. Baker from [employer] regarding transfusion "very risky, very last resort" -Will treat patient similar to Orthodoxy/blood refusal and optimize anemia where possible -Continue B12 IM injection, B12 level 82 -Continue empiric folic acid 1g daily -Completed 3 days of Iron Sucrose infusions for goal ferritin >100 and TIBC >20% -minimize hgb draws daily -Heme/onc consult for further anemia optimization -No further recommendations -Hold ASA/plavix at this time -Will need to resume likely plavix once blood is stable -GI consulted -Regular diet -EGD when hgb > 7 -Anemia labs not suggestive of hemolysis, DIC, myelodysplasia -Smear consistent with anemia (chronic disease, nutritional deficiencies, renal disease) -S/p 1 Unit lukas negative blood -Follow up tick bourne labs #Sepsis 2/2 UTI, ecoli #Acute urinary tract infection POA Hypotensive and tachycardic initially, improved BP to 105/77 and HR 95 after 2L NSS. 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 Large area of encephalomalacia within the left MCA territory compatible with chronic infarct(s), increased in size compared to the 2018 comparison. Expect this will improve with treatment of infection Fall precautions, PT/OT Continue statin hold plavix/asa until hgb stable and s/p scope #DM type 2 (diabetes mellitus, type 2) A1c 5.3 in Feb 2023 Hold home PO meds Basal/bolus insulin per protocol while in-patient BSG checks AC HS #Hypertension Hypotensive in setting of sepsis- hold losartan until BP improves #Hypothyroidism Continue levothyroxine #Mood disorder Continue Mirtazapine, trazodone, venlafaxine #CREST syndrome Has some chronic skin lesions. Not on medications DVT Ppx: SCDs for now Code status: FULL PCP: Renae Dispo: Admitted to PCU. Plan for likely rehab at this time Admission and Anticipated Discharge Date Admission Date: July 31, 2023 Subjective [place] update: 2 units of blood overnighted via Fedex to [place] 1 unit "broke" during thawing process 1 unit thawed and transfused with notable respone to 8.3 this morning Patient tolerated transfusion and reports feeling much better Large BM this morning Denies any pain or acute concerns, happy to have received the blood and energy much better today Physical Exam Constitutional: WD/WN, vitals as above Respiratory: normal respiratory effort, lungs clear to auscultation Cardiovascular: RRR, no murmur, no edema Skin: complexion notably improved Results & Data Results & Data Vital Signs (Past 12 Hours) Vital Signs Temp Pulse Resp BP Pulse Ox O2 Del Method O2 Flow Rate 08/05/23 11:21 Nasal Cannula 2 08/05/23 11:08 36.6 C 85 16 134/57 L 100 Nasal Cannula 2 08/05/23 07:07 36.6 C 70 17 123/76 99 Nasal Cannula 2 08/05/23 03:31 36.4 C L 90 17 123/73 99 Nasal Cannula 2 Laboratory Results Short CBC 08/05/23 Range/Units 06:21 WBC 8.08 (4.8-10.8) K/ul Hgb 8.3 L (12.0-16.0) g/dl Hct 27.4 L (37.0-47.0) % Plt Count 284 (130-400) K/uL BMP 08/05/23 06:21 Sodium 140 Potassium 4.3 Chloride 103 Carbon Dioxide 33 H BUN 11 Creatinine 0.82 Glucose 113 H Calcium 9.2 Medications Administered Home Medications Medication Instructions Recorded Confirmed Last Taken atorvastatin 80 mg tablet 80 mg PO HS 07/14/18 07/31/23 11/23/21 bisacodyl 5 mg tablet,delayed 5 mg PO HS PRN Constipation 07/14/18 07/31/23 07/13/18 release (Dulcolax (bisacodyl)) docusate calcium 240 mg capsule 240 mg PO DAILY PRN Constipation 07/14/18 07/31/23 07/13/18 (Stool Softener (docusate calcium)) donepezil 10 mg tablet 10 mg PO HS 07/14/18 07/31/23 11/23/21 ezetimibe 10 mg tablet 10 mg PO QAM 07/14/18 07/31/23 11/23/21 ferrous sulfate 325 mg (65 mg 650 mg PO QAM 07/14/18 07/31/23 11/23/21 iron) tablet loratadine 10 mg tablet (Claritin) 10 mg PO HS PRN allergies 07/14/18 07/31/23 11/23/21 losartan 25 mg tablet 12.5 mg PO QAM 07/14/18 07/31/23 11/23/21 metformin 500 mg tablet,extended 1,000 mg PO BID 07/14/18 07/31/23 11/23/21 release 24 hr mirtazapine 30 mg tablet 30 mg PO HS 07/14/18 07/31/23 11/23/21 ropinirole 0.5 mg tablet 0.5 mg PO HS 07/14/18 07/31/23 11/23/21 trazodone 50 mg tablet 50 mg PO HS PRN Pain 07/14/18 07/31/23 10/26/21 venlafaxine 75 mg tablet 75 mg PO QAM 07/14/18 07/31/23 11/23/21 insulin glargine 100 unit/mL (3 24 unit subcut QA 05/12/19 07/31/23 11/23/21 mL) subcutaneous pen (Hasn Bender U-100 Insulin) clopidogrel 75 mg tablet (Plavix) 75 mg PO QAM 08/25/19 07/31/23 11/23/21 aspirin 81 mg capsule 81 mg PO DAILY 07/31/23 07/31/23 Unknown dulaglutide 0.75 mg/0.5 mL 0.75 mg subcut WK 07/31/23 07/31/23 Unknown subcutaneous pen injector (Trulicity) fluticasone propionate 50 2 spray intranasal DAILY 07/31/23 07/31/23 Unknown mcg/actuation nasal spray,suspension gabapentin 300 mg capsule 300 mg PO BID 07/31/23 07/31/23 Unknown levothyroxine 50 mcg tablet 50 mcg PO DAILY 07/31/23 07/31/23 Unknown pantoprazole 40 mg tablet,delayed 40 mg PO QAM 07/31/23 07/31/23 Unknown release Active Medications Generic Name Dose Route Start Last Admin Trade Name Aly PRN Reason Stop Dose Admin Atorvastatin Calcium 80 mg 07/31/23 21:00 08/04/23 20:34 Atorvastatin 40 Mg Tab PO 08/30/23 20:59 80 mg HS OLIMPIA Administration Cyanocobalamin 1,000 mcg 08/01/23 10:45 08/05/23 09:03 Cyanocobalamin 1000 Mcg/Ml Vial IM 08/31/23 10:44 1,000 mcg QAM OLIMPIA Administration Donepezil HCl 10 mg 07/31/23 21:00 08/04/23 20:34 Donepezil Hcl 10 Mg Tab PO 08/30/23 20:59 10 mg HS OLIMPIA Administration Ezetimibe 10 mg 08/01/23 09:00 08/05/23 09:03 Ezetimibe 10 Mg Tab PO 08/31/23 08:59 10 mg QAM OLIMPIA Administration Fluticasone Propionate 2 sprays 08/01/23 09:00 08/05/23 09:04 Fluticasone Propionate Na Spr 16 Gm Btl CHERIE 08/31/23 08:59 2 sprays DAILY OLIMPIA Administration Folic Acid 1 mg 08/01/23 10:45 08/05/23 09:03 Folic Acid 1 Mg Tab PO 08/31/23 10:44 1 mg QAM OLIMPIA Administration Gabapentin 300 mg 07/31/23 21:00 08/05/23 09:03 Gabapentin 300 Mg Cap PO 08/30/23 20:59 300 mg BID OLIMPIA Administration Pantoprazole Sodium 40 mg/ 100 mls @ 20 mls/hr 07/31/23 21:45 08/05/23 09:03 Dextrose IV 08/30/23 21:44 8 mg/hr Q5H OLIMPIA 20 mls/hr Administration 8 MG/HR Ertapenem 1,000 mg/ Syringe 10 mls @ 2 mls/min 08/03/23 12:00 08/04/23 13:42 IV 08/13/23 11:59 2 mls/min Q24H OLIMPIA Administration Insulin Aspart 0 units 07/31/23 16:30 08/05/23 11:14 Insulin Aspart Per Unit Charge SC 08/30/23 16:29 Not Given ACHS OLIMPIA Insulin Glargine 0 - 12 units 07/31/23 21:00 08/05/23 09:04 Lantus Per Unit Charge SQ 08/30/23 20:59 Not Given BID OLIMPIA Levothyroxine Sodium 50 mcg 08/01/23 06:30 08/05/23 06:20 Levothyroxine Sodium 50 Mcg Tablet PO 08/31/23 06:29 50 mcg DAILYBB OLIMPIA Administration Mirtazapine 30 mg 07/31/23 21:00 08/04/23 20:34 Mirtazapine Tab 15 Mg Tab PO 08/30/23 20:59 30 mg HS OLIMPIA Administration Ropinirole HCl 0.5 mg 07/31/23 21:00 08/04/23 20:33 Ropinirole Hcl 0.25 Mg Tablet PO 08/30/23 20:59 0.5 mg HS OLIMPIA Administration Venlafaxine HCl 75 mg 08/01/23 09:00 08/05/23 09:03 Venlafaxine Hcl Xr 75 Mg Capxr PO 08/31/23 08:59 75 mg QAM OLIMPIA Administration
[2023-08-05] MEDS: ERTAPENEM SODIUM 1,000 MG in SYRINGE 0 ML IV SCH (13:14)
[2023-08-05] MEDS: rOPINIRole HCL 0.25 MG TABLET PO SCH (20:54)
[2023-08-05] MEDS: DONEPEZIL HCL 10 MG TAB PO SCH (20:54)
[2023-08-05] MEDS: MIRTAZAPINE TAB 15 MG TAB PO SCH (20:54)
[2023-08-05] MEDS: ATORVASTATIN 40 MG TAB PO SCH (20:55)
[2023-08-06] MEDS: PANTOprazole 40 MG in DEXTROSE 5% MINI-B 100 ML IV SCH ×2 (04:02→08:39)
[2023-08-06] MEDS: LEVOTHYROXINE SODIUM 50 MCG TABLET PO SCH (06:21)
[2023-08-06 06:52] LABS: Hematocrit (blood only) 24.9 % (37.0-47.0); Hemoglobin 7.9 g/dl (12.0-16.0); Mean Corpuscular Hemoglobin 31.1 pg (25.0-34.0); Mean Corpuscular Hgb Conc 31.7 g/dL (32.0-36.0); Mean Platelet Volume 10.5 fL (9.4-12.4); Nucleated RBC # (auto) 0.45 K/uL (0.00-0.12); Nucleated RBC % (auto) 5.4 %; Platelet Count 330 K/uL (130-400); RDW Coefficient of Variation 25.2 % (11.5-14.5); RDW Standard Deviation 83.5 fL (36.4-46.3); Red Blood Count 2.54 M/uL (4.20-5.40); White Blood Count 8.32 K/ul (4.8-10.8)
[2023-08-06 07:15] LABS: BUN Creatinine Ratio 15.8 (10-20); Creatinine Clr Calc Pharmacy 64.6 ml/min; Est GFR (African American) 93.4 ml/min; Est GFR (Non-African American) 80.6 ml/min; Potassium 4.3 mmol/L (3.5-5.1)
[2023-08-06] MEDS: FLUTICASONE PROPIONATE NA SPR 16 GM BTL NAE SCH (08:38)
[2023-08-06] MEDS: VENLAFAXINE HCL XR 75 MG CAPXR PO SCH (08:39)
[2023-08-06] MEDS: FOLIC ACID 1 MG TAB PO SCH (08:39)
[2023-08-06] MEDS: EZETIMIBE 10 MG TAB PO SCH (08:39)
[2023-08-06] MEDS: CYANOCOBALAMIN 1000 MCG/ML VIAL IM SCH (08:39)
[2023-08-06] MEDS: GABAPENTIN 300 MG CAP PO SCH ×2 (08:39→20:22)
[2023-08-06] MEDS: LANTUS PER UNIT CHARGE SQ SCH ×2 (08:40→21:14)
[2023-08-06] MEDS: INSULIN ASPART PER UNIT CHARGE SC SCH ×4 (09:53→21:14)
--- NOTE | 2023-08-06 11:19 | Hospitalist Progress Note ---
Date of Service August 06, 2023 Assessment & Plan (1) Sepsis: (2) Urinary tract infection: (3) Generalized weakness: (4) Anemia: (5) Hypertension: (6) History of CVA with residual deficit: (7) CREST syndrome: (8) Hypothyroidism: (9) PVD (peripheral vascular disease): (10) DM type 2 (diabetes mellitus, type 2): (11) Carotid stenosis: (12) Mood disorder: Plan is a 64-year-old female who has significant PMH of DM II on insulin, hx of CVA with residual aphasia/R sided weakness, carotid artery stenosis, L subclavian occlusion, HTN, HLD, COPD, Hypothyroidism, GERD, Scleroderma/CREST syn, Mood disorder, Depression with anxiety who presents to [facility] ED secondary to overall feeling weak x 2 days prior to arrival and was found to have sepsis 2/2 UTI. Patient admitted on 07/31 for management of sepsis. Initial labs notable for hgb lower than recent OP records, trend revealed concern for active bleed as hgb went from 7.9 to 6.2. Transfusion delayed given antivel antibody presence, which is notably very rare and finding a unit is difficult--currently [facility] attempting to locate a unit for patient. Urine is notable for GNB, however, in hopes to optimize anemia without blood product, IV iron will be admitted as risk of possible re-infection less than benefit of optimizing anemia in this setting. Search for Lukas-negative, Rh- blood continues. CTA chest/abd/pelvis for signs of bleed negative Discussed with Pathology: Red Blood Cells located in [place]--2 Units of lukas negative, rh- blood. attempting to have untis fedex'd Units of blood received on 08/04 to [place]--however, 1 unit burst while thawing; 1 unit administered Labs from 08/05 with robust response to transfusion, 8.3. Patient reports feeling much improved Plan to talk to family to discussion donation and identifying lukas-negative members -Will need to call reference lab, identify self as potential lukas-negative donors and arrange appointment for testing (Reference lab number [phone], [facility] GABRIEL) Otherwise, patient notably improved. Plan for continued abx, following up on tickbourne/parvo pathologies and resume plavix as tolerated. IgG Lyme positive, however, awaiting Western blot. #Acute on chronic macrocytic anemia #Anti-lukas antibody #Iron deficiency anemia #B12 deficiency -History of iron deficiency, on chronic supplementation -Ongoing conversations with Blood Bank--coordinating blood with lukas-negative type to ensure no transfusion reaction as pretreatment likely not able to stave of reaction from transfusion -See antibiody ID note for details on discussion with Dr. Baker from [place] [facility] regarding transfusion "very risky, very last resort" -Will treat patient similar to Restorationist/blood refusal and optimize anemia where possible -Continue B12 IM injection, B12 level 82, plan for 7 day course -Continue empiric folic acid 1g daily -Completed 3 days of Iron Sucrose infusions for goal ferritin >100 and TIBC >20% -minimize hgb drawsQOD -Heme/onc consult for further anemia optimization -No further recommendations -Hold ASA/plavix at this time -Will need to resume likely plavix once blood is stable -GI consulted -Regular diet -EGD when hgb > 7 -Anemia labs not suggestive of hemolysis, DIC, myelodysplasia -Smear consistent with anemia (chronic disease, nutritional deficiencies, renal disease) -S/p 1 Unit lukas negative blood -Follow up tick bourne labs -IgG +, IgM -, awaiting western blot #Sepsis 2/2 UTI, ecoli #Acute urinary tract infection POA Hypotensive and tachycardic initially, improved BP to 105/77 and HR 95 after 2L NSS. 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 Large area of encephalomalacia within the left MCA territory compatible with chronic infarct(s), increased in size compared to the 2018 comparison. Expect this will improve with treatment of infection Fall precautions, PT/OT Continue statin Scope Plan to resume plavix in am Will have patient follow up for resumption of ASA in 1 week post discharge #DM type 2 (diabetes mellitus, type 2) A1c 5.3 in Feb 2023 Hold home PO meds Basal/bolus insulin per protocol while in-patient BSG checks AC HS #COPD IS albuterol prn Overnight pulse ox #Hypertension Hypotensive in setting of sepsis- hold losartan until BP improves #Hypothyroidism Continue levothyroxine #Mood disorder Continue Mirtazapine, trazodone, venlafaxine #CREST syndrome Has some chronic skin lesions. Not on medications DVT Ppx: SCDs for now Code status: FULL PCP: Renae Dispo: Admitted to PCU. Plan for rehab Admission and Anticipated Discharge Date Admission Date: July 31, 2023 Subjective NAEO Reports working with physical therapy and eager to get to rehab She denies any pain or acute concerns, she notes she feels much improved over all Physical Exam Constitutional: WD/WN, vitals as above Respiratory: diminished bilbasilar airways Gastrointestinal (Abdomen): normal bowel sounds, soft, nontender, no hepatosplenomegaly Results & Data Results & Data Vital Signs (Past 12 Hours) Vital Signs Temp Pulse Pulse Resp BP Pulse Ox O2 Del Method 08/06/23 07:30 36.8 C 77 18 121/70 98 Nasal Cannula 08/06/23 03:26 36.7 C 89 118/72 100 Nasal Cannula 08/06/23 00:51 94 H O2 Flow Rate 08/06/23 07:30 2 08/06/23 03:26 2 08/06/23 00:51 Laboratory Results Short CBC 08/06/23 Range/Units 06:24 WBC 8.32 (4.8-10.8) K/ul Hgb 7.9 L (12.0-16.0) g/dl Hct 24.9 L (37.0-47.0) % Plt Count 330 (130-400) K/uL BMP 08/06/23 06:24 Sodium 141 Potassium 4.3 Chloride 105 Carbon Dioxide 34 H BUN 12 Creatinine 0.76 Glucose 116 H Calcium 9.0 Medications Administered Home Medications Medication Instructions Recorded Confirmed Last Taken atorvastatin 80 mg tablet 80 mg PO HS 07/14/18 07/31/23 11/23/21 bisacodyl 5 mg tablet,delayed 5 mg PO HS PRN Constipation 07/14/18 07/31/2318 release (Dulcolax (bisacodyl)) docusate calcium 240 mg capsule 240 mg PO DAILY PRN Constipation 07/14/1807/1607/13/18 (Stool Softener (docusate calcium)) donepezil 10 mg tablet 10 mg PO HS 07/14/18 07/31/23 11/23/21 ezetimibe 10 mg tablet 10 mg PO QAM 07/14/18 07/31/23 11/23/21 ferrous sulfate 325 mg (65 mg 650 mg PO QAM 07/14/18 07/31/23 11/23/21 iron) tablet loratadine 10 mg tablet (Claritin) 10 mg PO HS PRN allergies 07/14/18 07/31/23 11/23/21 losartan 25 mg tablet 12.5 mg PO QAM 07/14/18 07/31/23 11/23/21 metformin 500 mg tablet,extended 1,000 mg PO BID 07/14/18 07/31/23 11/23/21 release 24 hr mirtazapine 30 mg tablet 30 mg PO HS 07/14/18 07/31/23 11/23/21 ropinirole 0.5 mg tablet 0.5 mg PO HS 07/14/18 07/31/23 11/23/21 trazodone 50 mg tablet 50 mg PO HS PRN Pain 07/14/18 07/31/23 10/26/21 venlafaxine 75 mg tablet 75 mg PO QAM 07/14/18 07/31/23 11/23/21 insulin glargine 100 unit/mL (3 24 unit subcut QA 05/12/19 07/31/23 11/23/21 mL) subcutaneous pen (Basaglar KwikPen U-100 Insulin) clopidogrel 75 mg tablet (Plavix) 75 mg PO QAM 08/25/19 07/31/23 11/23/21 aspirin 81 mg capsule 81 mg PO DAILY 07/31/23 07/31/23 Unknown dulaglutide 0.75 mg/0.5 mL 0.75 mg subcut WK 07/31/23 07/31/23 Unknown subcutaneous pen injector (Trulicity) fluticasone propionate 50 2 spray intranasal DAILY 07/31/23 07/31/23 Unknown mcg/actuation nasal spray,suspension gabapentin 300 mg capsule 300 mg PO BID 07/31/23 07/31/23 Unknown levothyroxine 50 mcg tablet 50 mcg PO DAILY 07/31/23 07/31/23 Unknown pantoprazole 40 mg tablet,delayed 40 mg PO QAM 07/31/23 07/31/23 Unknown release Active Medications Generic Name Dose Route Start Last Admin Trade Name Freq PRN Reason Stop Dose Admin Atorvastatin Calcium 80 mg 07/31/23 21:00 08/05/23 20:55 Atorvastatin 40 Mg Tab PO 08/30/23 20:59 80 mg HS OLIMPIA Administration Cyanocobalamin 1,000 mcg 08/01/23 10:45 08/06/23 08:39 Cyanocobalamin 1000 Mcg/Ml Vial IM 08/31/23 10:44 1,000 mcg QAM OLIMPIA Administration Donepezil HCl 10 mg 07/31/23 21:00 08/05/23 20:54 Donepezil Hcl 10 Mg Tab PO 08/30/23 20:59 10 mg HS OLIMPIA Administration Ezetimibe 10 mg 08/01/23 09:00 08/06/23 08:39 Ezetimibe 10 Mg Tab PO 08/31/23 08:59 10 mg QAM OLIMPIA Administration Fluticasone Propionate 2 sprays 08/01/23 09:00 08/06/23 08:38 Fluticasone Propionate Na Spr 16 Gm Btl CHERIE 08/31/23 08:59 2 sprays DAILY OLIMPIA Administration Folic Acid 1 mg 08/01/23 10:45 08/06/23 08:39 Folic Acid 1 Mg Tab PO 08/31/23 10:44 1 mg QAM OLIMPIA Administration Gabapentin 300 mg 07/31/23 21:00 08/06/23 08:39 Gabapentin 300 Mg Cap PO 08/30/23 20:59 300 mg BID OLIMPIA Administration Pantoprazole Sodium 40 mg/ 100 mls @ 20 mls/hr 07/31/23 21:45 08/06/23 08:39 Dextrose IV 08/30/23 21:44 8 mg/hr Q5H OLIMPIA 20 mls/hr Administration 8 MG/HR Ertapenem 1,000 mg/ Syringe 10 mls @ 2 mls/min 08/03/23 12:00 08/05/23 13:14 IV 08/13/23 11:59 2 mls/min Q24H OLIMPIA Administration Insulin Aspart 0 units 07/31/23 16:30 08/06/23 09:53 Insulin Aspart Per Unit Charge SC 08/30/23 16:29 Not Given ACHS [facility] Insulin Glargine 0 - 12 units 07/31/23 21:00 08/06/23 08:40 Lantus Per Unit Charge SQ 08/30/23 20:59 8 units BID OLIMPIA Administration Levothyroxine Sodium 50 mcg 08/01/23 06:30 08/06/23 06:21 Levothyroxine Sodium 50 Mcg Tablet PO 08/31/23 06:29 50 mcg DAILYBB OLIMPIA Administration Mirtazapine 30 mg 07/31/23 21:00 08/05/23 20:54 Mirtazapine Tab 15 Mg Tab PO 08/30/23 20:59 30 mg HS OLIMPIA Administration Ropinirole HCl 0.5 mg 07/31/23 21:00 08/05/23 20:54 Ropinirole Hcl 0.25 Mg Tablet PO 08/30/23 20:59 0.5 mg HS OLIMPIA Administration Venlafaxine HCl 75 mg 08/01/23 09:00 08/06/23 08:39 Venlafaxine Hcl Xr 75 Mg Capxr PO 08/31/23 08:59 75 mg QAM OLIM[facility]IA Administration Atorvastatin Calcium (Atorvastatin 40 Mg Tab) 80 mg PO HS [facility] Stop: 08/30/23 20:59 Last Admin: 08/05/23 20:55 Dose: 80 mg Documented By: Admin: 08/04/23 20:34 Dose: 80 mg Documented By: Admin: 08/03/23 20:16 Dose: 80 mg Documented By: Admin: 08/02/23 20:55 Dose: 80 mg Documented By: Admin: 08/01/23 20:57 Dose: 80 mg Documented By: Admin: 07/31/23 21:05 Dose: 80 mg Documented By: RACHEAL Cyanocobalamin (Cyanocobalamin 1000 Mcg/Ml Vial) 1,000 mcg IM QAM [facility] Stop: 08/31/23 10:44 Last Admin: 08/06/23 08:39 Dose: 1,000 mcg Documented By: Admin: 08/05/23 09:03 Dose: 1,000 mcg Documented By: Admin: 08/04/23 08:59 Dose: 1,000 mcg Documented By: Admin: 08/03/23 07:48 Dose: 1,000 mcg Documented By: Admin: 08/02/23 08:40 Dose: 1,000 mcg Documented By: Admin: 08/01/23 11:15 Dose: 1,000 mcg Documented By: YOANNA Donepezil HCl (Donepezil Hcl 10 Mg Tab) 10 mg PO HS [facility] Stop: 08/30/23 20:59 Last Admin: 08/05/23 20:54 Dose: 10 mg Documented By: [facility] Admin: 08/04/23 20:34 Dose: 10 mg Documented By: [facility] Admin: 08/03/23 20:17 Dose: 10 mg Documented By: Admin: 08/02/23 20:56 Dose: 10 mg Documented By: Admin: 08/01/23 20:59 Dose: 10 mg Documented By: Admin: 07/31/23 21:05 Dose: 10 mg Documented By: RACHEAL Ezetimibe (Ezetimibe 10 Mg Tab) 10 mg PO QAM [facility] Stop: 08/31/23 08:59 Last Admin: 08/06/23 08:39 Dose: 10 mg Documented By: [facility] Admin: 08/05/23 09:03 Dose: 10 mg Documented By: [facility] Admin: 08/04/23 08:58 Dose: 10 mg Documented By: [facility] Admin: 08/03/23 07:49 Dose: 10 mg Documented By: [facility] Admin: 08/02/23 08:41 Dose: 10 mg Documented By: [facility] Admin: 08/01/23 08:28 Dose: Not Given Documented By: YOANNA Fluticasone Propionate (Fluticasone Propionate Na Spr 16 Gm Btl) 2 sprays CHERIE DAILY [facility] Stop: 08/31/23 08:59 Last Admin: 08/06/23 08:38 Dose: 2 sprays Documented By: Admin: 08/05/23 09:04 Dose: 2 sprays Documented By: [facility] Admin: 08/04/23 08:59 Dose: 2 sprays Documented By: [facility] Admin: 08/03/23 07:50 Dose: 2 sprays Documented By: [facility] Admin: 08/02/23 08:41 Dose: 2 sprays Documented By: [facility] Admin: 08/01/23 08:28 Dose: Not Given Documented By: YOANNA Folic Acid (Folic Acid 1 Mg Tab) 1 mg PO QAM [facility] Stop: 08/31/23 10:44 Last Admin: 08/06/23 08:39 Dose: 1 mg Documented By: Admin: 08/05/23 09:03 Dose: 1 mg Documented By: Admin: 08/04/23 08:58 Dose: 1 mg Documented By: Admin: 08/03/23 07:49 Dose: 1 mg Documented By: Admin: 08/02/23 08:41 Dose: 1 mg Documented By: Admin: 08/01/23 11:15 Dose: 1 mg Documented By: YOANNA Gabapentin (Gabapentin 300 Mg Cap) 300 mg PO BID [facility] Stop: 08/30/23 20:59 Last Admin: 08/06/23 08:39 Dose: 300 mg Documented By: Admin: 08/05/23 20:54 Dose: 300 mg Documented By: [facility] Admin: 08/05/23 09:03 Dose: 300 mg Documented By: Admin: 08/04/23 20:33 Dose: 300 mg Documented By: [facility] Admin: 08/04/23 08:58 Dose: 300 mg Documented By: Admin: 08/03/23 20:17 Dose: 300 mg Documented By: Admin: 08/03/23 07:49 Dose: 300 mg Documented By: Admin: 08/02/23 20:56 Dose: 300 mg Documented By: Admin: 08/02/23 08:41 Dose: 300 mg Documented By: Admin: 08/01/23 20:58 Dose: 300 mg Documented By: Admin: 08/01/23 08:28 Dose: Not Given Documented By: Admin: 07/31/23 21:05 Dose: 300 mg Documented By: RACHEAL Pantoprazole Sodium 40 mg/ (Dextrose) 100 mls @ 20 mls/hr IV Q5H [facility] Stop: 08/30/23 21:44 Last Admin: 08/06/23 08:39 Dose: 8 mg/hr, 20 mls/hr Documented By: Infusion: 08/06/23 08:39 Dose: Infused Documented By: Admin: 08/06/23 04:02 Dose: 8 mg/hr, 20 mls/hr Documented By: Infusion: 08/06/23 03:53 Dose: Infused Documented By: [facility] Admin: 08/05/23 22:53 Dose: 8 mg/hr, 20 mls/hr Documented By: Infusion: 08/05/23 22:26 Dose: Infused Documented By: [facility] Admin: 08/05/23 17:26 Dose: 8 mg/hr, 20 mls/hr Documented By: Infusion: 08/05/23 17:26 Dose: Infused Documented By: Admin: 08/05/23 14:23 Dose: 8 mg/hr, 20 mls/hr Documented By: Infusion: 08/05/23 14:03 Dose: Infused Documented By: S Admin: 08/05/23 09:03 Dose: 8 mg/hr, 20 mls/hr Documented By: Infusion: 08/05/23 09:03 Dose: Infused Documented By: S Admin: 08/05/23 04:03 Dose: 8 mg/hr, 20 mls/hr Documented By: [facility] Infusion: 08/05/23 04:03 Dose: Infused Documented By: [facility] Admin: 08/04/23 23:31 Dose: 8 mg/hr, 20 mls/hr Documented By: [facility] Infusion: 08/04/23 22:05 Dose: Infused Documented By: [facility] Admin: 08/04/23 17:05 Dose: 8 mg/hr, 20 mls/hr Documented By: S Infusion: 08/04/23 17:05 Dose: Infused Documented By: S Admin: 08/04/23 13:41 Dose: 8 mg/hr, 20 mls/hr Documented By: Infusion: 08/04/23 13:41 Dose: Infused Documented By: Admin: 08/04/23 08:57 Dose: 8 mg/hr, 20 mls/hr Documented By: Infusion: 08/04/23 08:19 Dose: Infused Documented By: Admin: 08/04/23 03:19 Dose: 8 mg/hr, 20 mls/hr Documented By: Infusion: 08/04/23 03:19 Dose: Infused Documented By: Admin: 08/03/23 22:15 Dose: 8 mg/hr, 20 mls/hr Documented By: Infusion: 08/03/23 22:10 Dose: Infused Documented By: Admin: 08/03/23 17:10 Dose: 8 mg/hr, 20 mls/hr Documented By: Infusion: 08/03/23 17:10 Dose: Infused Documented By: Admin: 08/03/23 12:28 Dose: 8 mg/hr, 20 mls/hr Documented By: Infusion: 08/03/23 11:31 Dose: Infused Documented By: Admin: 08/03/23 06:31 Dose: 8 mg/hr, 20 mls/hr Documented By: Infusion: 08/03/23 06:31 Dose: Infused Documented By: Admin: 08/03/23 01:26 Dose: 8 mg/hr, 20 mls/hr Documented By: Infusion: 08/03/23 01:26 Dose: Infused Documented By: Admin: 08/02/23 20:54 Dose: 8 mg/hr, 20 mls/hr Documented By: Infusion: 08/02/23 20:54 Dose: Infused Documented By: Admin: 08/02/23 13:56 Dose: 8 mg/hr, 20 mls/hr Documented By: Infusion: 08/02/23 13:56 Dose: Infused Documented By: Admin: 08/02/23 10:13 Dose: 8 mg/hr, 20 mls/hr Documented By: Infusion: 08/02/23 09:49 Dose: Infused Documented By: Admin: 08/02/23 04:49 Dose: 8 mg/hr, 20 mls/hr Documented By: Infusion: 08/02/23 04:49 Dose: Infused Documented By: Admin: 08/02/23 00:30 Dose: 8 mg/hr, 20 mls/hr Documented By: Infusion: 08/02/23 00:29 Dose: Infused Documented By: Infusion: 08/01/23 18:09 Dose: 8 mg/hr, 20 mls/hr Documented By: Admin: 08/01/23 18:08 Dose: 8 mg/hr, 20 mls/hr Documented By: Infusion: 08/01/23 18:08 Dose: Infused Documented By: Admin: 08/01/23 13:16 Dose: 8 mg/hr, 20 mls/hr Documented By: Infusion: 08/01/23 12:54 Dose: Infused Documented By: Admin: 08/01/23 07:54 Dose: 8 mg/hr, 20 mls/hr Documented By: Infusion: 08/01/23 07:54 Dose: Infused Documented By: Admin: 08/01/23 03:10 Dose: 8 mg/hr, 20 mls/hr Documented By: Infusion: 08/01/23 03:10 Dose: Infused Documented By: Admin: 07/31/23 22:10 Dose: 8 mg/hr, 20 mls/hr Documented By: RACHEAL Ertapenem 1,000 mg/ Syringe 10 mls @ 2 mls/min IV Q24H [facility] Stop: 08/13/23 11:59 Last Admin: 08/05/23 13:14 Dose: 2 mls/min Documented By: Admin: 08/04/23 13:42 Dose: 2 mls/min Documented By: Admin: 08/03/23 12:31 Dose: 2 mls/min Documented By: CLARICE Insulin Aspart (Insulin Aspart Per Unit Charge) 0 units SC ACHS [facility] Stop: 08/30/23 16:29 Last Admin: 08/06/23 09:53 Dose: Not Given Documented By: Admin: 08/05/23 20:57 Dose: 4 units Documented By: ADOLFO Co-signed By: ZAFAR Admin: 08/05/23 17:26 Dose: Not Given Documented By: Admin: 08/05/23 11:14 Dose: Not Given Documented By: Admin: 08/05/23 08:58 Dose: Not Given Documented By: Admin: 08/04/23 20:51 Dose: 5 units Documented By: ADOLFO Co-signed By: JILLIAN Admin: 08/04/23 17:05 Dose: Not Given Documented By: Admin: 08/04/23 13:41 Dose: Not Given Documented By: Admin: 08/04/23 08:56 Dose: Not Given Documented By: Admin: 08/03/23 20:24 Dose: 2 units Documented By: JEFFY Co-signed By: MURRAY Admin: 08/03/23 16:21 Dose: Not Given Documented By: Admin: 08/03/23 12:31 Dose: Not Given Documented By: Admin: 08/03/23 07:46 Dose: Not Given Documented By: Admin: 08/02/23 21:03 Dose: 3 units Documented By: JEFFY Co-signed By: BRITANY Admin: 08/02/23 16:32 Dose: Not Given Documented By: Admin: 08/02/23 13:55 Dose: Not Given Documented By: Admin: 08/02/23 08:31 Dose: Not Given Documented By: Admin: 08/01/23 21:04 Dose: Not Given Documented By: Admin: 08/01/23 17:46 Dose: 2 units Documented By: YOANNA Co-signed By: GRETTA Admin: 08/01/23 12:57 Dose: 2 units Documented By: YOANNA Co-signed By: GRETTA Admin: 08/01/23 08:26 Dose: Not Given Documented By: Admin: 07/31/23 20:56 Dose: Not Given Documented By: Admin: 07/31/23 16:29 Dose: Not Given Documented By: PRUDENCE Co-signed By: RITU Insulin Glargine (Lantus Per Unit Charge) 0 - 12 units SQ BID [facility] Stop: 08/30/23 20:59 Last Admin: 08/06/23 08:40 Dose: 8 units Documented By: CLARICE Co-signed By: KAT Admin: 08/05/23 20:56 Dose: 8 units Documented By: ADOLFO Co-signed By: ZAFAR Admin: 08/05/23 09:04 Dose: Not Given Documented By: Admin: 08/04/23 20:50 Dose: 8 units Documented By: ADOLFO Co-signed By: JILLIAN Admin: 08/04/23 09:05 Dose: 8 units Documented By: CLARICE Co-signed By: HUGO Admin: 08/03/23 20:25 Dose: 8 units Documented By: JEFFY Co-signed By: MURRAY Admin: 08/03/23 07:53 Dose: 8 units Documented By: CLARICE Co-signed By: KAT Admin: 08/02/23 21:03 Dose: 8 units Documented By: JEFFY Co-signed By: BRITANY Admin: 08/02/23 08:39 Dose: 8 units Documented By: CLARICE Co-signed By: ARNOLD Admin: 08/01/23 21:07 Dose: 8 units Documented By: JEFFY Co-signed By: AM Admin: 08/01/23 08:29 Dose: Not Given Documented By: MTGoyo Admin: 07/31/23 20:57 Dose: Not Given Documented By: RACHEAL Levothyroxine Sodium (Levothyroxine Sodium 50 Mcg Tablet) [facility]: 08/31/23 06:29 Last Admin: 08/06/23 06:21 Dose: 50 mcg Documented By: [facility] Admin: 08/05/23 06:20 Dose: 50 mcg Documented By: [facility] Admin: 08/04/23 05:58 Dose: 50 mcg Documented By: Admin: 08/03/23 05:32 Dose: 50 mcg Documented By: Admin: 08/02/23 05:15 Dose: 50 mcg Documented By: Admin: 08/01/23 05:25 Dose: 50 mcg Documented By: RACHEAL Mirtazapine (Mirtazapine Tab 15 Mg Tab) 30 mg PO [facility] Stop: 08/30/23 20:59 Last Admin: 08/05/23 20:54 Dose: 30 mg Documented By: [facility] Admin: 08/04/23 20:34 Dose: 30 mg Documented By: [facility] Admin: 08/03/23 20:17 Dose: 30 mg Documented By: Admin: 08/02/23 20:55 Dose: 30 mg Documented By: Admin: 08/01/23 21:00 Dose: 30 mg Documented By: Admin: 07/31/23 21:06 Dose: 30 mg Documented By: RACHEAL Ropinirole HCl (Ropinirole Hcl 0.25 Mg Tablet) 0.5 mg PO [facility] Stop: 08/30/23 20:59 Last Admin: 08/05/23 20:54 Dose: 0.5 mg Documented By: [facility] Admin: 08/04/23 20:33 Dose: 0.5 mg Documented By: [facility] Admin: 08/03/23 20:16 Dose: 0.5 mg Documented By: Admin: 08/02/23 20:55 Dose: 0.5 mg Documented By: Admin: 08/01/23 20:58 Dose: 0.5 mg Documented By: Admin: 07/31/23 21:04 Dose: 0.5 mg Documented By: AJM Venlafaxine HCl (Venlafaxine Hcl Xr 75 Mg Capxr) 75 mg PO GREGGM [facility] Stop: 08/31/23 08:59 Last Admin: 08/06/23 08:39 Dose: 75 mg Documented By: Admin: 08/05/23 09:03 Dose: 75 mg Documented By: Admin: 08/04/23 08:58 Dose: 75 mg Documented By: Admin: 08/03/23 07:49 Dose: 75 mg Documented By: Admin: 08/02/23 08:41 Dose: 75 mg Documented By: Admin: 08/01/23 08:30 Dose: Not Given Documented By: YOANNA
[2023-08-06] MEDS: DOCUSATE CALCIUM 240 MG CAPSULE PO SCH (13:02)
[2023-08-06] MEDS: ERTAPENEM SODIUM 1,000 MG in SYRINGE 0 ML IV SCH (13:03)
[2023-08-06] MEDS: MIRTAZAPINE TAB 15 MG TAB PO SCH (20:21)
[2023-08-06] MEDS: rOPINIRole HCL 0.25 MG TABLET PO SCH (20:21)
[2023-08-06] MEDS: ATORVASTATIN 40 MG TAB PO SCH (20:22)
[2023-08-06] MEDS: DONEPEZIL HCL 10 MG TAB PO SCH (20:22)
[2023-08-07] MEDS: LEVOTHYROXINE SODIUM 50 MCG TABLET PO SCH (06:30)
[2023-08-07] MEDS: CLOPIDOGREL BISULFATE 75 MG TAB PO SCH (09:07)
[2023-08-07] MEDS: CYANOCOBALAMIN 1000 MCG/ML VIAL IM SCH (09:08)
[2023-08-07] MEDS: FLUTICASONE PROPIONATE NA SPR 16 GM BTL NAE SCH (09:08)
[2023-08-07] MEDS: EZETIMIBE 10 MG TAB PO SCH (09:08)
[2023-08-07] MEDS: DOCUSATE CALCIUM 240 MG CAPSULE PO SCH (09:08)
[2023-08-07] MEDS: GABAPENTIN 300 MG CAP PO SCH ×2 (09:09→19:59)
[2023-08-07] MEDS: FOLIC ACID 1 MG TAB PO SCH (09:09)
[2023-08-07] MEDS: PANTOprazole 40 MG TAB PO SCH (09:10)
[2023-08-07] MEDS: VENLAFAXINE HCL XR 75 MG CAPXR PO SCH (09:10)
[2023-08-07] MEDS: INSULIN ASPART PER UNIT CHARGE SC SCH ×4 (09:15→20:38)
[2023-08-07] MEDS: LANTUS PER UNIT CHARGE SQ SCH ×2 (09:15→20:38)
[2023-08-07] MEDS: ERTAPENEM SODIUM 1,000 MG in SYRINGE 0 ML IV SCH (12:58)
--- NOTE | 2023-08-07 14:23 | Hospitalist Progress Note ---
Date of Service August 07, 2023 Assessment & Plan (1) Sepsis: (2) Urinary tract infection: (3) Generalized weakness: (4) Anemia: (5) Hypertension: (6) History of CVA with residual deficit: (7) CREST syndrome: (8) Hypothyroidism: (9) PVD (peripheral vascular disease): (10) DM type 2 (diabetes mellitus, type 2): (11) Carotid stenosis: (12) Mood disorder: Plan is a 64-year-old female who has significant PMH of DM II on insulin, hx of CVA with residual aphasia/R sided weakness, carotid artery stenosis, L subclavian occlusion, HTN, HLD, COPD, Hypothyroidism, GERD, Scleroderma/CREST syn, Mood disorder, Depression with anxiety who presents to [facility] ED secondary to overall feeling weak x 2 days prior to arrival and was found to have sepsis 2/2 UTI. Patient admitted on 07/31 for management of sepsis. Initial labs notable for hgb lower than recent OP records, trend revealed concern for active bleed as hgb went from 7.9 to 6.2. Transfusion delayed given antivel antibody presence, which is notably very rare and finding a unit is difficult--currently [facility] attempting to locate a unit for patient. Urine is notable for GNB, however, in hopes to optimize anemia without blood product, IV iron will be admitted as risk of possible re-infection less than benefit of optimizing anemia in this setting. Search for Lukas-negative, Rh- blood continues. CTA chest/abd/pelvis for signs of bleed negative Discussed with Pathology: Red Blood Cells located in [place]--2 Units of lukas negative, rh- blood. attempting to have untis fedex'd Units of blood received on 08/04 to [place]--however, 1 unit burst while thawing; 1 unit administered Labs from 08/05 with robust response to transfusion, 8.3. Patient reports feeling much improved Plan to talk to family to discussion donation and identifying lukas-negative members -Will need to call reference lab, identify self as potential luksa-negative donors and arrange appointment for testing (Reference lab number [phone], [place]/Kelly GABRIEL) Otherwise, patient notably improved. Plan for continued abx, following up on tickbourne/parvo pathologies and resume plavix as tolerated. IgG Lyme positive, however, awaiting Western blot. #Acute on chronic macrocytic anemia *stable #Anti-lukas antibody #Iron deficiency anemia #B12 deficiency -History of iron deficiency, on chronic supplementation -Ongoing conversations with Blood Bank--coordinating blood with lukas-negative type to ensure no transfusion reaction as pretreatment likely not able to stave of reaction from transfusion -See antibiody ID note for details on discussion with Dr. Baker from [place] regarding transfusion "very risky, very last resort" -Will treat patient similar to Denominational/blood refusal and optimize anemia where possible -Continue B12 IM injection, B12 level 82, plan for 7 day course -Continue empiric folic acid 1g daily -Completed 3 days of Iron Sucrose infusions for goal ferritin >100 and TIBC >20% -minimize hgb drawsQOD -Heme/onc consult for further anemia optimization -No further recommendations -Continue Plavix -GI consulted -Regular diet -EGD as an OP -Anemia labs not suggestive of hemolysis, DIC, myelodysplasia -Smear consistent with anemia (chronic disease, nutritional deficiencies, renal disease) -S/p 1 Unit lukas negative blood -Follow up tick bourne labs -IgG +, IgM -, awaiting western blot #Sepsis 2/2 UTI, ecoli #Acute urinary tract infection POA Hypotensive and tachycardic initially, improved BP to 105/77 and HR 95 after 2L NSS. 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 Large area of encephalomalacia within the left MCA territory compatible with chronic infarct(s), increased in size compared to the 2018 comparison. Expect this will improve with treatment of infection Fall precautions, PT/OT Continue statin Continue plavix #DM type 2 (diabetes mellitus, type 2) A1c 5.3 in Feb 2023 Hold home PO meds Basal/bolus insulin per protocol while in-patient BSG checks AC HS #COPD IS, add flutter valve albuterol prn Start fluticasone/jacobo. inhaler daily #Hypertension Hypotensive in setting of sepsis- hold losartan until BP improves #Hypothyroidism Continue levothyroxine #Mood disorder Continue Mirtazapine, trazodone, venlafaxine #CREST syndrome Has some chronic skin lesions. Not on medications DVT Ppx: SCDs for now Code status: FULL PCP: Renae Dispo: Admitted to PCU. Plan for rehab Admission and Anticipated Discharge Date Admission Date: July 31, 2023 Subjective NAEO States she stills feels good, but denies any chest pain, signs of bleeding, palpitations Physical Exam Constitutional: WD/WN, vitals as above Respiratory: diminished breath sounds Cardiovascular: RRR, no murmur, no edema Results & Data Results & Data Vital Signs (Past 12 Hours) Vital Signs Temp Pulse Pulse Pulse Resp BP BP 08/07/23 13:33 08/07/23 11:26 36.4 C L 80 18 112/63 08/07/23 08:10 82 08/07/23 08:00 08/07/23 07:53 36.4 C L 84 18 144/67 H 08/07/23 07:33 36.7 C 71 18 164/82 H 08/07/23 04:01 36.5 C 82 17 144/55 H 08/07/23 03:10 82 Pulse Ox Pulse Ox O2 Del Method O2 Del Method O2 Flow Rate 08/07/23 13:33 97 08/07/23 11:26 99 Nasal Cannula 1 08/07/23 08:10 08/07/23 08:00 Nasal Cannula 1 08/07/23 07:53 98 Nasal Cannula 1 08/07/23 07:33 96 Room Air 08/07/23 04:01 93 Room Air 08/07/23 03:10 94 Room Air Laboratory Results Held labs today to minimize blood draw Medications Administered Home Medications Medication Instructions Recorded Confirmed Last Taken atorvastatin 80 mg tablet 80 mg PO HS 07/14/18 07/31/23 11/23/21 bisacodyl 5 mg tablet,delayed 5 mg PO HS PRN Constipation 07/14/18 07/31/23 07/13/18 release (Dulcolax (bisacodyl)) docusate calcium 240 mg capsule 240 mg PO DAILY PRN Constipation 07/14/18 07/31/23 07/13/18 (Stool Softener (docusate calcium)) donepezil 10 mg tablet 10 mg PO HS 07/14/18 07/31/23 11/23/21 ezetimibe 10 mg tablet 10 mg PO QAM 07/14/18 07/31/23 11/23/21 ferrous sulfate 325 mg (65 mg 650 mg PO QAM 07/14/18 07/31/23 11/23/21 iron) tablet loratadine 10 mg tablet (Claritin) 10 mg PO HS PRN allergies 07/14/18 07/31/23 11/23/21 losartan 25 mg tablet 12.5 mg PO QAM 07/14/18 07/31/23 11/23/21 metformin 500 mg tablet,extended 1,000 mg PO BID 07/14/18 07/31/23 11/23/21 release 24 hr mirtazapine 30 mg tablet 30 mg PO HS 07/14/18 07/31/23 11/23/21 ropinirole 0.5 mg tablet 0.5 mg PO HS 07/14/18 07/31/23 11/23/21 trazodone 50 mg tablet 50 mg PO HS PRN Pain 07/14/18 07/31/23 10/26/21 venlafaxine 75 mg tablet 75 mg PO QAM 07/14/18 07/31/23 11/23/21 insulin glargine 100 unit/mL (3 24 unit subcut QAM 05/12/19 07/31/23 11/23/21 mL) subcutaneous pen (Hans Bender U-100 Insulin) clopidogrel 75 mg tablet (Plavix) 75 mg PO QAM 08/25/19 07/31/23 11/23/21 aspirin 81 mg capsule 81 mg PO DAILY 07/31/23 07/31/23 Unknown dulaglutide 0.75 mg/0.5 mL 0.75 mg subcut WK 07/31/23 07/31/23 Unknown subcutaneous pen injector (Trulicity) fluticasone propionate 50 2 spray intranasal DAILY 07/31/23 07/31/23 Unknown mcg/actuation nasal spray,suspension gabapentin 300 mg capsule 300 mg PO BID 07/31/23 07/31/23 Unknown levothyroxine 50 mcg tablet 50 mcg PO DAILY 07/31/23 07/31/23 Unknown pantoprazole 40 mg tablet,delayed 40 mg PO QAM 07/31/23 07/31/23 Unknown release Active Medications Generic Name Dose Route Start Last Admin Trade Name Aly PRN Reason Stop Dose Admin Atorvastatin Calcium 80 mg 07/31/23 21:00 08/06/23 20:22 Atorvastatin 40 Mg Tab PO 08/30/23 20:59 80 mg HS OLIMPIA Administration Clopidogrel Bisulfate 75 mg 08/01/23 09:00 08/07/23 09:07 Clopidogrel Bisulfate 75 Mg Tab PO 08/31/23 08:59 75 mg QAM OLIMPIA Administration Cyanocobalamin 1,000 mcg 08/01/23 10:45 08/07/23 09:08 Cyanocobalamin 1000 Mcg/Ml Vial IM 08/31/23 10:44 1,000 mcg QAM OLIMPIA Administration Docusate Calcium 240 mg 08/06/23 11:30 08/07/23 09:08 Docusate Calcium 240 Mg Capsule PO 09/05/23 11:29 240 mg DAILY OLIMPIA Administration Donepezil HCl 10 mg 07/31/23 21:00 08/06/23 20:22 Donepezil Hcl 10 Mg Tab PO 08/30/23 20:59 10 mg HS OLIMPIA Administration Ezetimibe 10 mg 08/01/23 09:00 08/07/23 09:08 Ezetimibe 10 Mg Tab PO 08/31/23 08:59 10 mg QAM OLIMPIA Administration Fluticasone Propionate 2 sprays 08/01/23 09:00 08/07/23 09:08 Fluticasone Propionate Na Spr 16 Gm Btl CHERIE 08/31/23 08:59 2 sprays DAILY OLIMPIA Administration Folic Acid 1 mg 08/01/23 10:45 08/07/23 09:09 Folic Acid 1 Mg Tab PO 08/31/23 10:44 1 mg QAM OLIMPIA Administration Gabapentin 300 mg 07/31/23 21:00 08/07/23 09:09 Gabapentin 300 Mg Cap PO 08/30/23 20:59 300 mg BID OLIMPIA Administration Ertapenem 1,000 mg/ Syringe 10 mls @ 2 mls/min 08/03/23 12:00 08/07/23 12:58 IV 08/13/23 11:59 2 mls/min Q24H OLIMPIA Administration Insulin Aspart 0 units 07/31/23 16:30 08/07/23 12:58 Insulin Aspart Per Unit Charge SC 08/30/23 16:29 5 units ACHS OLIMPIA Administration Insulin Glargine 0 - 12 units 07/31/23 21:00 08/07/23 09:15 Lantus Per Unit Charge SQ 08/30/23 20:59 8 units BID OLIMPIA Administration Levothyroxine Sodium 50 mcg 08/01/23 06:30 08/07/23 06:30 Levothyroxine Sodium 50 Mcg Tablet PO 08/31/23 06:29 50 mcg DAILYBB OLIMPIA Administration Mirtazapine 30 mg 07/31/23 21:00 08/06/23 20:21 Mirtazapine Tab 15 Mg Tab PO 08/30/23 20:59 30 mg HS OLIMPIA Administration Pantoprazole Sodium 40 mg 08/07/23 09:00 08/07/23 09:10 Pantoprazole 40 Mg Tab PO 09/06/23 08:59 40 mg QAM OLIMPIA Administration Ropinirole HCl 0.5 mg 07/31/23 21:00 08/06/23 20:21 Ropinirole Hcl 0.25 Mg Tablet PO 08/30/23 20:59 0.5 mg HS OLIMPIA Administration Venlafaxine HCl 75 mg 08/01/23 09:00 08/07/23 09:10 Venlafaxine Hcl Xr 75 Mg Capxr PO 08/31/23 08:59 75 mg QAM OLIMPIA Administration
[2023-08-07] MEDS: FLUTICASONE/VILANTEROL 100/25MCG 14 PUFFS/INHALER INH SCH (15:00)
[2023-08-07] MEDS: ATORVASTATIN 40 MG TAB PO SCH (19:58)
[2023-08-07] MEDS: DONEPEZIL HCL 10 MG TAB PO SCH (19:59)
[2023-08-07] MEDS: MIRTAZAPINE TAB 15 MG TAB PO SCH (20:00)
[2023-08-07] MEDS: rOPINIRole HCL 0.25 MG TABLET PO SCH (20:01)
[2023-08-08 03:03] LABS: 18KDIGG Band NON-REACTIVE; 23KDIGG Band REACTIVE; 23KDIGM Band NON-REACTIVE; 28KDIGG Band NON-REACTIVE; 30KDIGG Band NON-REACTIVE; 39KDIGG Band REACTIVE; 39KDIGM Band NON-REACTIVE; 41KDIGG Band REACTIVE; 41KDIGM Band NON-REACTIVE; 45KDIGG Band REACTIVE; 58KDIGG Band REACTIVE; 66KDIGG Band NON-REACTIVE; 93KDIGG Band REACTIVE; Lyme Antibodies, WB IgG POSITIVE (NEGATIVE); Lyme Antibodies, WB IgM NEGATIVE (NEGATIVE)
[2023-08-08] MEDS: LEVOTHYROXINE SODIUM 50 MCG TABLET PO SCH (05:39)
[2023-08-08 06:51] LABS: Hematocrit (blood only) 27.3 % (37.0-47.0); Hemoglobin 8.3 g/dl (12.0-16.0)
[2023-08-08] MEDS: DOCUSATE CALCIUM 240 MG CAPSULE PO SCH (08:47)
[2023-08-08] MEDS: CYANOCOBALAMIN (B-12) 500 MCG TABLET PO SCH (08:47)
[2023-08-08] MEDS: FOLIC ACID 1 MG TAB PO SCH (08:47)
[2023-08-08] MEDS: PANTOprazole 40 MG TAB PO SCH (08:47)
[2023-08-08] MEDS: EZETIMIBE 10 MG TAB PO SCH (08:47)
[2023-08-08] MEDS: VENLAFAXINE HCL XR 75 MG CAPXR PO SCH (08:47)
[2023-08-08] MEDS: CLOPIDOGREL BISULFATE 75 MG TAB PO SCH (08:47)
[2023-08-08] MEDS: GABAPENTIN 300 MG CAP PO SCH ×2 (08:48→20:38)
[2023-08-08] MEDS: FLUTICASONE/VILANTEROL 100/25MCG 14 PUFFS/INHALER INH SCH (08:48)
[2023-08-08] MEDS: FLUTICASONE PROPIONATE NA SPR 16 GM BTL NAE SCH (08:48)
[2023-08-08] MEDS: INSULIN ASPART PER UNIT CHARGE SC SCH ×4 (08:53→20:44)
[2023-08-08] MEDS: LANTUS PER UNIT CHARGE SQ SCH ×2 (08:54→20:43)
[2023-08-08] MEDS: DOXYCYCLINE HYCLATE 100 MG CAP PO SCH ×2 (09:05→20:37)
--- NOTE | 2023-08-08 12:56 | Hospitalist Progress Note ---
Date of Service August 08, 2023 Assessment & Plan (1) Sepsis: (2) Urinary tract infection: (3) Generalized weakness: (4) Anemia: (5) Hypertension: (6) History of CVA with residual deficit: (7) CREST syndrome: (8) Hypothyroidism: (9) PVD (peripheral vascular disease): (10) DM type 2 (diabetes mellitus, type 2): (11) Carotid stenosis: (12) Mood disorder: Plan is a 64-year-old female who has significant PMH of DM II on insulin, hx of CVA with residual aphasia/R sided weakness, carotid artery stenosis, L subclavian occlusion, HTN, HLD, COPD, Hypothyroidism, GERD, Scleroderma/CREST syn, Mood disorder, Depression with anxiety who presents to [facility] ED secondary to overall feeling weak x 2 days prior to arrival and was found to have sepsis 2/2 UTI. Patient admitted on 07/31 for management of sepsis. Initial labs notable for hgb lower than recent OP records, trend revealed concern for active bleed as hgb went from 7.9 to 6.2. Transfusion delayed given antivel antibody presence, which is notably very rare and finding a unit is difficult--currently [facility] attempting to locate a unit for patient. Urine is notable for GNB, however, in hopes to optimize anemia without blood product, IV iron will be admitted as risk of possible re-infection less than benefit of optimizing anemia in this setting. Search for Lukas-negative, Rh- blood continues. CTA chest/abd/pelvis for signs of bleed negative Discussed with Pathology: Red Blood Cells located in [place]--2 Units of lukas negative, rh- blood. attempting to have untis fedex'd Units of blood received on 08/04 to [place]--however, 1 unit burst while thawing; 1 unit administered Labs from 08/05 with robust response to transfusion, 8.3. Patient reports feeling much improved Plan to talk to family to discussion donation and identifying lukas-negative members -Will need to call reference lab, identify self as potential lukas-negative donors and arrange appointment for testing (Reference lab number [phone], [place]/Kelly GABRIEL) Otherwise, patient notably improved. Plan for continued abx, following up on tickbourne/parvo pathologies and resume plavix as tolerated. IgG Lyme positive, plus western blot with multiple positive bands. #Lyme IgG positive -Denies any history of lyme disease at this time, given concerns on admission will treat -Lyme IgG western positive: bands 23,39,93 positive -Received 1 week of abx thus far, will continue 2 week course of doxy BID po #Acute on chronic macrocytic anemia *stable #Anti-lukas antibody #Iron deficiency anemia #B12 deficiency -History of iron deficiency, on chronic supplementation -Ongoing conversations with Blood Bank--coordinating blood with lukas-negative type to ensure no transfusion reaction as pretreatment likely not able to stave of reaction from transfusion -See antibiody ID note for details on discussion with Dr. Baker from [place] regarding transfusion "very risky, very last resort" -Will treat patient similar to Judaism/blood refusal and optimize anemia where possible -Continue B12 IM injection, B12 level 82, plan for 7 day course -Continue empiric folic acid 1g daily -Completed 3 days of Iron Sucrose infusions for goal ferritin >100 and TIBC >20% -minimize hgb drawsQOD -Heme/onc consult for further anemia optimization -No further recommendations -Continue Plavix -GI consulted -Regular diet -EGD as an OP -Anemia labs not suggestive of hemolysis, DIC, myelodysplasia -Smear consistent with anemia (chronic disease, nutritional deficiencies, renal disease) -S/p 1 Unit lukas negative blood -Follow up tick bourne labs -IgG +, IgM -< Western blot 23,39,41,45,93 + given patient's anemia and symptoms at presentation will opt for 2 week treatment in addition to IV abx already received. #Sepsis 2/2 UTI, ecoli #Acute urinary tract infection POA Hypotensive and tachycardic initially, improved BP to 105/77 and HR 95 after 2L NSS. 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 Large area of encephalomalacia within the left MCA territory compatible with chronic infarct(s), increased in size compared to the 2018 comparison. Expect this will improve with treatment of infection Fall precautions, PT/OT Continue statin Continue plavix 08/07 #DM type 2 (diabetes mellitus, type 2) A1c 5.3 in Feb 2023 Hold home PO meds Basal/bolus insulin per protocol while in-patient BSG checks AC HS #COPD IS, add flutter valve albuterol prn Start fluticasone/jacobo. inhaler daily #Hypertension Hypotensive in setting of sepsis- hold losartan until BP improves #Hypothyroidism Continue levothyroxine #Mood disorder Continue Mirtazapine, trazodone, venlafaxine #CREST syndrome Has some chronic skin lesions. Not on medications DVT Ppx: SCDs for now Code status: FULL PCP: Renae Dispo: Admitted to PCU. Plan for rehab Admission and Anticipated Discharge Date Admission Date: July 31, 2023 Subjective NAEO, denies any new concerns, eager for rehab Physical Exam Constitutional: WD/WN, vitals as above Respiratory: normal respiratory effort, lungs clear to auscultation Cardiovascular: RRR, no murmur, no edema Results & Data Results & Data Vital Signs (Past 12 Hours) Vital Signs Temp Pulse Pulse Resp BP Pulse Ox O2 Del Method 08/08/23 11:58 36.7 C 88 18 147/72 H 95 Room Air 08/08/23 08:30 Room Air 08/08/23 08:08 36.4 C L 76 18 114/75 96 Nasal Cannula 08/08/23 07:56 77 08/08/23 07:54 77 08/08/23 03:00 80 18 130/75 94 Nasal Cannula O2 Flow Rate 08/08/23 11:58 08/08/23 08:30 08/08/23 08:08 1 08/08/23 07:56 08/08/23 07:54 08/08/23 03:00 1 Laboratory Results Short CBC 08/08/23 Range/Units 06:19 Hgb 8.3 L (12.0-16.0) g/dl Hct 27.3 L (37.0-47.0) % Medications Administered Home Medications Medication Instructions Recorded Confirmed Last Taken atorvastatin 80 mg tablet 80 mg PO HS 07/14/18 07/31/23 11/23/21 bisacodyl 5 mg tablet,delayed 5 mg PO HS PRN Constipation 07/14/18 07/31/23 07/13/18 release (Dulcolax (bisacodyl)) docusate calcium 240 mg capsule 240 mg PO DAILY PRN Constipation 07/14/18 07/31/23 07/13/18 (Stool Softener (docusate calcium)) donepezil 10 mg tablet 10 mg PO HS 07/14/18 07/31/23 11/23/21 ezetimibe 10 mg tablet 10 mg PO QAM 07/14/18 07/31/23 11/23/21 ferrous sulfate 325 mg (65 mg 650 mg PO QAM 07/14/18 07/31/23 11/23/21 iron) tablet loratadine 10 mg tablet (Claritin) 10 mg PO HS PRN allergies 07/14/18 07/31/23 11/23/21 losartan 25 mg tablet 12.5 mg PO QAM 07/14/18 07/31/23 11/23/21 metformin 500 mg tablet,extended 1,000 mg PO BID 07/14/18 07/31/23 11/23/21 release 24 hr mirtazapine 30 mg tablet 30 mg PO HS 07/14/18 07/31/23 11/23/21 ropinirole 0.5 mg tablet 0.5 mg PO HS 07/14/18 07/31/23 11/23/21 trazodone 50 mg tablet 50 mg PO HS PRN Pain 07/14/18 07/31/23 10/26/21 venlafaxine 75 mg tablet 75 mg PO QAM 07/14/18 07/31/23 11/23/21 insulin glargine 100 unit/mL (3 24 unit subcut QAM 05/12/19 07/31/23 11/23/21 mL) subcutaneous pen (Basaglar Napoleon U-100 Insulin) clopidogrel 75 mg tablet (Plavix) 75 mg PO QAM 08/25/19 07/31/23 11/23/21 aspirin 81 mg capsule 81 mg PO DAILY 07/31/23 07/31/23 Unknown dulaglutide 0.75 mg/0.5 mL 0.75 mg subcut WK 07/31/23 07/31/23 Unknown subcutaneous [facility] ([facility] fluticasone propionate 50 2 spray intranasal DAILY 07/31/23 07/31/23 Unknown mcg/actuation nasal spray,suspension gabapentin 300 mg capsule 300 mg PO BID 07/31/23 07/31/23 Unknown levothyroxine 50 mcg tablet 50 mcg PO DAILY 07/31/23 07/31/23 Unknown pantoprazole 40 mg tablet,delayed 40 mg PO QAM 07/31/23 07/31/23 Unknown release Active Medications Generic Name Dose Route Start Last Admin Trade Name Freq PRN Reason Stop Dose Admin Atorvastatin Calcium 80 mg 07/31/23 21:00 08/07/23 19:58 Atorvastatin 40 Mg Tab PO 08/30/23 20:59 80 mg HS OLIMPIA Administration Clopidogrel Bisulfate 75 mg 08/01/23 09:00 08/08/23 08:47 Clopidogrel Bisulfate 75 Mg Tab PO 08/31/23 08:59 75 mg QAM OLIMPIA Administration Cyanocobalamin 1,000 mcg 08/08/23 09:00 08/08/23 08:47 Cyanocobalamin (B-12) 500 Mcg Tablet PO 09/07/23 08:59 1,000 mcg QAM OLIMPIA Administration Docusate Calcium 240 mg 08/06/23 11:30 08/08/23 08:47 Docusate Calcium 240 Mg Capsule PO 09/05/23 11:29 240 mg DAILY OLIMPIA Administration Donepezil HCl 10 mg 07/31/23 21:00 08/07/23 19:59 Donepezil Hcl 10 Mg Tab PO 08/30/23 20:59 10 mg HS OLIMPIA Administration Doxycycline Hyclate 100 mg 08/08/23 09:00 08/08/23 09:05 Doxycycline Hyclate 100 Mg Cap PO 08/22/23 08:59 100 mg BID OLIMPIA Administration Ezetimibe 10 mg 08/01/23 09:00 08/08/23 08:47 Ezetimibe 10 Mg Tab PO 08/31/23 08:59 10 mg QAM OLIMPIA Administration Fluticasone Propionate 2 sprays 08/01/23 09:00 08/08/23 08:48 Fluticasone Propionate Na Spr 16 Gm Btl CHERIE 08/31/23 08:59 2 sprays DAILY OLIMPIA Administration Fluticasone/Vilanterol 1 puffs 08/07/23 14:30 08/08/23 08:48 Fluticasone/Vilanterol 100/25mcg 14 Puffs/Inhaler INH 09/06/23 14:29 1 puffs DAILY OLIMPIA Administration Folic Acid 1 mg 08/01/23 10:45 08/08/23 08:47 Folic Acid 1 Mg Tab PO 08/31/23 10:44 1 mg QAM OLIMPIA Administration Gabapentin 300 mg 07/31/23 21:00 08/08/23 08:48 Gabapentin 300 Mg Cap PO 08/30/23 20:59 300 mg BID OLIMPIA Administration Insulin Aspart 0 units 07/31/23 16:30 08/08/23 12:01 Insulin Aspart Per Unit Charge SC 08/30/23 16:29 3 units ACHS OLIMPIA Administration Insulin Glargine 0 - 12 units 07/31/23 21:00 08/08/23 08:54 Lantus Per Unit Charge SQ 08/30/23 20:59 8 units BID OLIMPIA Administration Levothyroxine Sodium 50 mcg 08/01/23 06:30 08/08/23 05:39 Levothyroxine Sodium 50 Mcg Tablet PO 08/31/23 06:29 50 mcg DAILYBB OLIMPIA Administration Mirtazapine 30 mg 07/31/23 21:00 08/07/23 20:00 Mirtazapine Tab 15 Mg Tab PO 08/30/23 20:59 30 mg HS OLIMPIA Administration Pantoprazole Sodium 40 mg 08/07/23 09:00 08/08/23 08:47 Pantoprazole 40 Mg Tab PO 09/06/23 08:59 40 mg QAM OLIMPIA Administration Ropinirole HCl 0.5 mg 07/31/23 21:00 08/07/23 20:01 Ropinirole Hcl 0.25 Mg Tablet PO 08/30/23 20:59 0.5 mg HS OLIMPIA Administration Venlafaxine HCl 75 mg 08/01/23 09:00 08/08/23 08:47 Venlafaxine Hcl Xr 75 Mg Capxr PO 08/31/23 08:59 75 mg QAM OLIMPIA Administration
[2023-08-08] MEDS: DONEPEZIL HCL 10 MG TAB PO SCH (20:36)
[2023-08-08] MEDS: rOPINIRole HCL 0.25 MG TABLET PO SCH (20:37)
[2023-08-08] MEDS: ATORVASTATIN 40 MG TAB PO SCH (20:37)
[2023-08-08] MEDS: MIRTAZAPINE TAB 15 MG TAB PO SCH (20:38)
[2023-08-09] MEDS ORDERED: LACTATED RINGER'S 1,000 ML IV ONE (00:01)
[2023-08-09 01:03] LABS: Hematocrit (blood only) 28.9 % (37.0-47.0); Hemoglobin 8.5 g/dl (12.0-16.0); Mean Corpuscular Hemoglobin 30.9 pg (25.0-34.0); Mean Corpuscular Hgb Conc 29.4 g/dL (32.0-36.0); Mean Corpuscular Volume 105.1 fL (80.0-100.0); Mean Platelet Volume 10.5 fL (9.4-12.4); Nucleated RBC # (auto) 0.26 K/uL (0.00-0.12); Nucleated RBC % (auto) 2.8 %; Platelet Count 365 K/uL (130-400); RDW Coefficient of Variation 25.2 % (11.5-14.5); RDW Standard Deviation 96.4 fL (36.4-46.3); Red Blood Count 2.75 M/uL (4.20-5.40); White Blood Count 9.26 K/ul (4.8-10.8)
[2023-08-09 01:09] LABS: BUN Creatinine Ratio 21.2 (10-20); Calcium 9.1 mg/dl (8.6-10.3); Creatinine Clr Calc Pharmacy 56.8 ml/min; Est GFR (African American) 81.6 ml/min; Est GFR (Non-African American) 70.4 ml/min
[2023-08-09 01:42] LABS: Anisocytosis Present; Basophilic Stippling 1+; Basophils # (auto) 0.07 K/uL (0.00-0.20); Basophils % (auto) 0.8 %; Eosinophils # (auto) 0.23 K/uL (0.00-0.50); Eosinophils % (auto) 2.5 %; Immature Granulocytes # (auto) 0.49 K/uL (0.01-0.20); Immature Granulocytes % (auto) 5.3 %; Lymphocytes # (auto) 2.41 K/uL (1.20-3.40); Monocytes # (auto) 1.05 K/uL (0.11-0.59); Monocytes % (auto) 11.3 %; Neutrophils # (auto) 5.01 K/uL (1.40-6.50); Neutrophils % (auto) 54.1 %; Polychromasia 2+; Tear Drop Cells 1+
[2023-08-09] MEDS: LEVOTHYROXINE SODIUM 50 MCG TABLET PO SCH (05:54)
[2023-08-09] MEDS: INSULIN ASPART PER UNIT CHARGE SC SCH ×4 (08:09→21:07)
[2023-08-09] MEDS: LANTUS PER UNIT CHARGE SQ SCH ×2 (08:10→21:09)
[2023-08-09] MEDS: CYANOCOBALAMIN (B-12) 500 MCG TABLET PO SCH (08:20)
[2023-08-09] MEDS: PANTOprazole 40 MG TAB PO SCH (08:21)
[2023-08-09] MEDS: CLOPIDOGREL BISULFATE 75 MG TAB PO SCH (08:21)
[2023-08-09] MEDS: DOCUSATE CALCIUM 240 MG CAPSULE PO SCH (08:22)
[2023-08-09] MEDS: VENLAFAXINE HCL XR 75 MG CAPXR PO SCH (08:22)
[2023-08-09] MEDS: GABAPENTIN 300 MG CAP PO SCH ×2 (08:23→21:04)
[2023-08-09] MEDS: FOLIC ACID 1 MG TAB PO SCH (08:23)
[2023-08-09] MEDS: EZETIMIBE 10 MG TAB PO SCH (08:24)
[2023-08-09] MEDS: DOXYCYCLINE HYCLATE 100 MG CAP PO SCH ×2 (08:24→21:04)
[2023-08-09] MEDS: FLUTICASONE/VILANTEROL 100/25MCG 14 PUFFS/INHALER INH SCH (08:25)
[2023-08-09] MEDS: FLUTICASONE PROPIONATE NA SPR 16 GM BTL NAE SCH (08:25)
[2023-08-09 09:09] LABS: Ehrlichia chaff DNA Bld Negative (Negative)
--- NOTE | 2023-08-09 16:40 | Hospitalist Progress Note ---
Date of Service August 09, 2023 Assessment & Plan (1) Sepsis: (2) Urinary tract infection: (3) Generalized weakness: (4) Anemia: (5) Hypertension: (6) History of CVA with residual deficit: (7) CREST syndrome: (8) Hypothyroidism: (9) PVD (peripheral vascular disease): (10) DM type 2 (diabetes mellitus, type 2): (11) Carotid stenosis: (12) Mood disorder: Plan is a 64-year-old female who has significant PMH of DM II on insulin, hx of CVA with residual aphasia/R sided weakness, carotid artery stenosis, L subclavian occlusion, HTN, HLD, COPD, Hypothyroidism, GERD, Scleroderma/CREST syn, Mood disorder, Depression with anxiety who presents to [facility] ED secondary to overall feeling weak x 2 days prior to arrival and was found to have sepsis 2/2 UTI. Patient admitted on 07/31 for management of sepsis. Initial labs notable for hgb lower than recent OP records, trend revealed concern for active bleed as hgb went from 7.9 to 6.2. Transfusion delayed given antivel antibody presence, which is notably very rare and finding a unit is difficult--currently [facility] attempting to locate a unit for patient. Urine is notable for GNB, however, in hopes to optimize anemia without blood product, IV iron will be admitted as risk of possible re-infection less than benefit of optimizing anemia in this setting. Search for Lukas-negative, Rh- blood continues. CTA chest/abd/pelvis for signs of bleed negative Discussed with Pathology: Red Blood Cells located in [place]--2 Units of lukas negative, rh- blood. attempting to have untis fedex'd Units of blood received on 08/04 to [place]--however, 1 unit burst while thawing; 1 unit administered Labs from 08/05 with robust response to transfusion, 8.3. Patient reports feeling much improved Plan to talk to family to discussion donation and identifying lukas-negative members -Will need to call reference lab, identify self as potential lukas-negative donors and arrange appointment for testing (Reference lab number [phone], [facility]) Otherwise, patient notably improved. Plan for continued abx, following up on tickbourne/parvo pathologies and resumed plavix with out bleed IgG Lyme positive, plus western blot with multiple positive bands. Continue doxycycline at this time. Plan to resume ASA in am. #Lyme IgG positive -Denies any history of lyme disease at this time, given concerns on admission will treat -Lyme IgG western positive: bands 23,39,93 positive -Received 1 week of abx thus far, will continue 2 week course of doxy BID po EOT 08/22 #Acute on chronic macrocytic anemia *stable #Anti-lukas antibody #Iron deficiency anemia #B12 deficiency -History of iron deficiency, on chronic supplementation -Ongoing conversations with Blood Bank--coordinating blood with lukas-negative type to ensure no transfusion reaction as pretreatment likely not able to stave of reaction from transfusion -See antibiody ID note for details on discussion with Dr. Baker from [facility] regarding transfusion "very risky, very last resort" -Will treat patient similar to Oriental orthodox/blood refusal and optimize anemia where possible -Continue B12 IM injection, B12 level 82, plan for 7 day course -Continue empiric folic acid 1g daily -Completed 3 days of Iron Sucrose infusions for goal ferritin >100 and TIBC >20% -minimize hgb drawsQOD -Heme/onc consult for further anemia optimization -No further recommendations -Continue Plavix -GI consulted -Regular diet -EGD as an OP -Anemia labs not suggestive of hemolysis, DIC, myelodysplasia -Smear consistent with anemia (chronic disease, nutritional deficiencies, renal disease) -S/p 1 Unit lukas negative blood -Follow up tick bourne labs -IgG +, IgM -< Western blot 23,39,41,45,93 + given patient's anemia and sy mptoms at presentation will opt for 2 week treatment in addition to IV abx already received. #Sepsis 2/2 UTI, ecoli *resolved #Acute urinary tract infection POA Hypotensive and tachycardic initially, improved BP to 105/77 and HR 95 after 2L NSS. 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 Large area of encephalomalacia within the left MCA territory compatible with chronic infarct(s), increased in size compared to the 2018 comparison. Expect this will improve with treatment of infection Fall precautions, PT/OT Continue statin Continue plavix 08/07 Continue ASA 81mg 08/10 #DM type 2 (diabetes mellitus, type 2) A1c 5.3 in Feb 2023 Hold home PO meds Basal/bolus insulin per protocol while in-patient BSG checks AC HS #COPD IS, add flutter valve albuterol prn Start fluticasone/jacobo. inhaler daily #Hypertension Hypotensive in setting of sepsis- hold losartan until BP improves #Hypothyroidism Continue levothyroxine #Mood disorder Continue Mirtazapine, trazodone, venlafaxine #CREST syndrome Has some chronic skin lesions. Not on medications DVT Ppx: SCDs for now Code status: FULL PCP: Renae Dispo: Admitted to PCU. Plan for rehab Awaiting authorization Admission and Anticipated Discharge Date Admission Date: July 31, 2023 Subjective NAEO awaiting placement Physical Exam Constitutional: WD/WN, vitals as above stable dysarthria/aphasia Respiratory: normal respiratory effort, lungs clear to auscultation Cardiovascular: RRR, no murmur, no edema Results & Data Results & Data Vital Signs (Past 12 Hours) Vital Signs Temp Pulse Pulse Resp BP BP Pulse Ox 08/09/23 16:05 81 08/09/23 15:34 36.7 C 74 18 126/69 96 08/09/23 11:21 36.6 C 82 18 115/80 97 08/09/23 08:00 80 08/09/23 08:00 08/09/23 07:11 36.4 C L 77 18 117/59 L 93 O2 Del Method 08/09/23 16:05 08/09/23 15:34 Room Air 08/09/23 11:21 Room Air 08/09/23 08:00 08/09/23 08:00 Room Air 08/09/23 07:11 Room Air Laboratory Results Short CBC 08/09/23 Range/Units 00:37 WBC 9.26 (4.8-10.8) K/ul Hgb 8.5 L (12.0-16.0) g/dl Hct 28.9 L (37.0-47.0) % Plt Count 365 (130-400) K/uL [facility] 08/09/23 00:37 Sodium 139 Potassium 4.0 Chloride 105 Carbon Dioxide 29 BUN 18 Creatinine 0.85 Glucose 149 H Calcium 9.1 Diagnostic Findings Home Medications Medication Instructions Recorded Confirmed Last Taken atorvastatin 80 mg tablet 80 mg PO HS 07/14/18 07/31/23 11/23/21 bisacodyl 5 mg tablet,delayed 5 mg PO HS PRN Constipation 07/14/18 07/31/23 07/13/18 release (Dulcolax (bisacodyl)) docusate calcium 240 mg capsule 240 mg PO DAILY PRN Constipation 07/14/18 07/31/23 07/13/18 (Stool Softener (docusate calcium)) donepezil 10 mg tablet 10 mg PO HS 07/14/18 07/31/23 11/23/21 ezetimibe 10 mg tablet 10 mg PO QAM 07/14/18 07/31/23 11/23/21 ferrous sulfate 325 mg (65 mg 650 mg PO QAM 07/14/18 07/31/23 11/23/21 iron) tablet loratadine 10 mg tablet (Claritin) 10 mg PO HS PRN allergies 07/14/18 07/31/23 11/23/21 losartan 25 mg tablet 12.5 mg PO QAM 07/14/18 07/31/23 11/23/21 metformin 500 mg tablet,extended 1,000 mg PO BID 07/14/18 07/31/23 11/23/21 release 24 hr mirtazapine 30 mg tablet 30 mg PO HS 07/14/18 07/31/23 11/23/21 ropinirole 0.5 mg tablet 0.5 mg PO HS 07/14/18 07/31/23 11/23/21 trazodone 50 mg tablet 50 mg PO HS PRN Pain 07/14/18 07/31/23 10/26/21 venlafaxine 75 mg tablet 75 mg PO QAM 07/14/18 07/31/23 11/23/21 insulin glargine 100 unit/mL (3 24 unit subcut QAM 05/12/19 07/31/23 11/23/21 mL) subcutaneous pen (Basaglar KwikPen U-100 Insulin) clopidogrel 75 mg tablet (Plavix) 75 mg PO QAM 08/25/19 07/31/23 11/23/21 aspirin 81 mg capsule 81 mg PO DAILY 07/31/23 07/31/23 Unknown dulaglutide 0.75 mg/0.5 mL 0.75 mg subcut WK 07/31/23 07/31/23 Unknown subcutaneous pen injector (Trulicity) fluticasone propionate 50 2 spray intranasal DAILY 07/31/23 07/31/23 Unknown mcg/actuation nasal spray,suspension gabapentin 300 mg capsule 300 mg PO BID 07/31/23 07/31/23 Unknown levothyroxine 50 mcg tablet 50 mcg PO DAILY 07/31/23 07/31/23 Unknown pantoprazole 40 mg tablet,delayed 40 mg PO QAM 07/31/23 07/31/23 Unknown release Active Medications Generic Name Dose Route Start Last Admin Trade Name Bryanq PRN Reason Stop Dose Admin Atorvastatin Calcium 80 mg 07/31/23 21:00 08/08/23 20:37 Atorvastatin 40 Mg Tab PO 08/30/23 20:59 80 mg HS OLIMPIA Administration Clopidogrel Bisulfate 75 mg 08/01/23 09:00 08/09/23 08:21 Clopidogrel Bisulfate 75 Mg Tab PO 08/31/23 08:59 75 mg QAM OLIMPIA Administration Cyanocobalamin 1,000 mcg 08/08/23 09:00 08/09/23 08:20 Cyanocobalamin (B-12) 500 Mcg Tablet PO 09/07/23 08:59 1,000 mcg QAM OLIMPIA Administration Docusate Calcium 240 mg 08/06/23 11:30 08/09/23 08:22 Docusate Calcium 240 Mg Capsule PO 09/05/23 11:29 240 mg DAILY OLIMPIA Administration Donepezil HCl 10 mg 07/31/23 21:00 08/08/23 20:36 Donepezil Hcl 10 Mg Tab PO 08/30/23 20:59 10 mg HS OLIMPIA Administration Doxycycline Hyclate 100 mg 08/08/23 09:00 08/09/23 08:24 Doxycycline Hyclate 100 Mg Cap PO 08/22/23 08:59 100 mg BID OLIMPIA Administration Ezetimibe 10 mg 08/01/23 09:00 08/09/23 08:24 Ezetimibe 10 Mg Tab PO 08/31/23 08:59 10 mg QAM OLIMPIA Administration Fluticasone Propionate 2 sprays 08/01/23 09:00 08/09/23 08:25 Fluticasone Propionate Na Spr 16 Gm Btl CHERIE 08/31/23 08:59 2 sprays DAILY OLIMPIA Administration Fluticasone/Vilanterol 1 puffs 08/07/23 14:30 08/09/23 08:25 Fluticasone/Vilanterol /25mcg 14 Puffs/Inhaler INH 09/06/23 14:29 1 puffs DAILY OLIMPIA Administration Folic Acid 1 mg 08/01/23 10:45 08/09/23 08:23 Folic Acid 1 Mg Tab PO 08/31/23 10:44 1 mg QAM OLIMPIA Administration Gabapentin 300 mg 07/31/23 21:00 08/09/23 08:23 Gabapentin 300 Mg Cap PO 08/30/23 20:59 300 mg BID OLIMPIA Administration Insulin Aspart 0 units 07/31/23 16:30 08/09/23 11:59 Insulin Aspart Per Unit Charge SC 08/30/23 16:29 3 units ACHS OLIMPIA Administration Insulin Glargine 0 - 12 units 07/31/23 21:00 08/09/23 08:10 Lantus Per Unit Charge SQ 08/30/23 20:59 8 units BID OLIMPIA Administration Levothyroxine Sodium 50 mcg 08/01/23 06:30 08/09/23 05:54 Levothyroxine Sodium 50 Mcg Tablet PO 08/31/23 06:29 50 mcg DAILYBB OLIMPIA Administration Mirtazapine 30 mg 07/31/23 21:00 08/08/23 20:38 Mirtazapine Tab 15 Mg Tab PO 08/30/23 20:59 30 mg HS OLIMPIA Administration Pantoprazole Sodium 40 mg 08/07/23 09:00 08/09/23 08:21 Pantoprazole 40 Mg Tab PO 09/06/23 08:59 40 mg QAM OLIMPIA Administration Ropinirole HCl 0.5 mg 07/31/23 21:00 08/08/23 20:37 Ropinirole Hcl 0.25 Mg Tablet PO 08/30/23 20:59 0.5 mg HS OLIMPIA Administration Venlafaxine HCl 75 mg 08/01/23 09:00 08/09/23 08:22 Venlafaxine Hcl Xr 75 Mg Capxr PO 08/31/23 08:59 75 mg QAM [facility] Administration Medications Administered Home Medications Medication Instructions Recorded Confirmed Last Taken atorvastatin 80 mg tablet 80 mg PO HS 07/14/18 07/31/23 11/23/21 bisacodyl 5 mg tablet,delayed 5 mg PO HS PRN Constipation 07/14/18 07/31/23 07/13/18 release (Dulcolax (bisacodyl)) docusate calcium 240 mg capsule 240 mg PO DAILY PRN Constipation 07/14/18 07/31/23 07/13/18 (Stool Softener (docusate calcium)) donepezil 10 mg tablet 10 mg PO HS 07/14/18 07/31/23 11/23/21 ezetimibe 10 mg tablet 10 mg PO QAM 07/14/18 07/31/23 11/23/21 ferrous sulfate 325 mg (65 mg 650 mg PO QAM 07/14/18 07/31/23 11/23/21 iron) tablet loratadine 10 mg tablet (Claritin) 10 mg PO HS PRN allergies 07/14/18 07/31/23 11/23/21 losartan 25 mg tablet 12.5 mg PO QAM 07/14/18 07/31/23 11/23/21 metformin 500 mg tablet,extended 1,000 mg PO BID 07/14/18 07/31/23 11/23/21 release 24 hr mirtazapine 30 mg tablet 30 mg PO HS 07/14/18 07/31/23 11/23/21 ropinirole 0.5 mg tablet 0.5 mg PO HS 07/14/18 07/31/23 11/23/21 trazodone 50 mg tablet 50 mg PO HS PRN Pain 07/14/18 07/31/23 10/26/21 venlafaxine 75 mg tablet 75 mg PO QAM 07/14/18 07/31/23 11/23/21 insulin glargine 100 unit/mL (3 24 unit subcut QAM 05/12/19 07/31/23 11/23/21 mL) subcutaneous pen (Basaglelis Bender U-100 Insulin) clopidogrel 75 mg tablet (Plavix) 75 mg PO QAM 08/25/19 07/31/23 11/23/21 aspirin 81 mg capsule 81 mg PO DAILY 07/31/23 07/31/23 Unknown dulaglutide 0.75 mg/0.5 mL 0.75 mg subcut WK 07/31/23 07/31/23 Unknown subcutaneous pen injector (Trulicity) fluticasone propionate 50 2 spray intranasal DAILY 07/31/23 07/31/23 Unknown mcg/actuation nasal spray,suspension gabapentin 300 mg capsule 300 mg PO BID 07/31/23 07/31/23 Unknown levothyroxine 50 mcg tablet 50 mcg PO DAILY 07/31/23 07/31/23 Unknown pantoprazole 40 mg tablet,delayed 40 mg PO QAM 07/31/23 07/31/23 Unknown release Active Medications Generic Name Dose Route Start Last Admin Trade Name Freq PRN Reason Stop Dose Admin Atorvastatin Calcium 80 mg 07/31/23 21:00 08/08/23 20:37 Atorvastatin 40 Mg Tab PO 08/30/23 20:59 80 mg HS OLIMPIA Administration Clopidogrel Bisulfate 75 mg 08/01/23 09:00 08/09/23 08:21 Clopidogrel Bisulfate 75 Mg Tab PO 08/31/23 08:59 75 mg QAM OLIMPIA Administration Cyanocobalamin 1,000 mcg 08/08/23 09:00 08/09/23 08:20 Cyanocobalamin (B-12) 500 Mcg Tablet PO 09/07/23 08:59 1,000 mcg QAM OLIMPIA Administration Docusate Calcium 240 mg 08/06/23 11:30 08/09/23 08:22 Docusate Calcium 240 Mg Capsule PO 09/05/23 11:29 240 mg DAILY OLIMPIA Administration Donepezil HCl 10 mg 07/31/23 21:00 08/08/23 20:36 Donepezil Hcl 10 Mg Tab PO 08/30/23 20:59 10 mg HS OLIMPIA Administration Doxycycline Hyclate 100 mg 08/08/23 09:00 08/09/23 08:24 Doxycycline Hyclate 100 Mg Cap PO 08/22/23 08:59 100 mg BID OLIMPIA Administration Ezetimibe 10 mg 08/01/23 09:00 08/09/23 08:24 Ezetimibe 10 Mg Tab PO 08/31/23 08:59 10 mg QAM OLIMPIA Administration Fluticasone Propionate 2 sprays 08/01/23 09:00 08/09/23 08:25 Fluticasone Propionate Na Spr 16 Gm Btl CHERIE 08/31/23 08:59 2 sprays DAILY OLIMPIA Administration Fluticasone/Vilanterol 1 puffs 08/07/23 14:30 08/09/23 08:25 Fluticasone/Vilanterol 100/25mcg 14 Puffs/Inhaler INH 09/06/23 14:29 1 puffs DAILY OLIMPIA Administration Folic Acid 1 mg 08/01/23 10:45 08/09/23 08:23 Folic Acid 1 Mg Tab PO 08/31/23 10:44 1 mg QAM OLIMPIA Administration Gabapentin 300 mg 07/31/23 21:00 08/09/23 08:23 Gabapentin 300 Mg Cap PO 08/30/23 20:59 300 mg BID OLIMPIA Administration Insulin Aspart 0 units 07/31/23 16:30 08/09/23 11:59 Insulin Aspart Per Unit Charge SC 08/30/23 16:29 3 units ACHS OLIMPIA Administration Insulin Glargine 0 - 12 units 07/31/23 21:00 08/09/23 08:10 Lantus Per Unit Charge SQ 08/30/23 20:59 8 units BID OLIMPIA Administration Levothyroxine Sodium 50 mcg 08/01/23 06:30 08/09/23 05:54 Levothyroxine Sodium 50 Mcg Tablet PO 08/31/23 06:29 50 mcg DAILYBB OLIMPIA Administration Mirtazapine 30 mg 07/31/23 21:00 08/08/23 20:38 Mirtazapine Tab 15 Mg Tab PO 08/30/23 20:59 30 mg HS OLIMPIA Administration Pantoprazole Sodium 40 mg 08/07/23 09:00 08/09/23 08:21 Pantoprazole 40 Mg Tab PO 09/06/23 08:59 40 mg QAM OLIMPIA Administration Ropinirole HCl 0.5 mg 07/31/23 21:00 08/08/23 20:37 Ropinirole Hcl 0.25 Mg Tablet PO 08/30/23 20:59 0.5 mg HS OLIMPIA Administration Venlafaxine HCl 75 mg 08/01/23 09:00 08/09/23 08:22 Venlafaxine Hcl Xr 75 Mg Capxr PO 08/31/23 08:59 75 mg QAM OLIMPIA Administration
[2023-08-09] MEDS: DONEPEZIL HCL 10 MG TAB PO SCH (21:02)
[2023-08-09] MEDS: rOPINIRole HCL 0.25 MG TABLET PO SCH (21:03)
[2023-08-09] MEDS: ATORVASTATIN 40 MG TAB PO SCH (21:03)
[2023-08-09] MEDS: MIRTAZAPINE TAB 15 MG TAB PO SCH (21:03)
[2023-08-10] MEDS: LEVOTHYROXINE SODIUM 50 MCG TABLET PO SCH (06:02)
[2023-08-10] MEDS: EZETIMIBE 10 MG TAB PO SCH (08:29)
[2023-08-10] MEDS: GABAPENTIN 300 MG CAP PO SCH ×2 (08:29→20:30)
[2023-08-10] MEDS: CYANOCOBALAMIN (B-12) 500 MCG TABLET PO SCH (08:29)
[2023-08-10] MEDS: INSULIN ASPART PER UNIT CHARGE SC SCH ×4 (08:29→20:14)
[2023-08-10] MEDS: VENLAFAXINE HCL XR 75 MG CAPXR PO SCH (08:30)
[2023-08-10] MEDS: PANTOprazole 40 MG TAB PO SCH (08:30)
[2023-08-10] MEDS: DOCUSATE CALCIUM 240 MG CAPSULE PO SCH (08:30)
[2023-08-10] MEDS: DOXYCYCLINE HYCLATE 100 MG CAP PO SCH ×2 (08:30→20:31)
[2023-08-10] MEDS: FOLIC ACID 1 MG TAB PO SCH (08:30)
[2023-08-10] MEDS: CLOPIDOGREL BISULFATE 75 MG TAB PO SCH (08:30)
[2023-08-10] MEDS: LANTUS PER UNIT CHARGE SQ SCH ×2 (08:31→20:31)
[2023-08-10] MEDS: FLUTICASONE PROPIONATE NA SPR 16 GM BTL NAE SCH (08:32)
[2023-08-10] MEDS: FLUTICASONE/VILANTEROL 100/25MCG 14 PUFFS/INHALER INH SCH (08:32)
--- NOTE | 2023-08-10 16:25 | Hospitalist Progress Note ---
Date of Service August 10, 2023 Assessment & Plan (1) Sepsis: (2) Urinary tract infection: (3) Generalized weakness: (4) Anemia: (5) Hypertension: (6) History of CVA with residual deficit: (7) CREST syndrome: (8) Hypothyroidism: (9) PVD (peripheral vascular disease): (10) DM type 2 (diabetes mellitus, type 2): (11) Carotid stenosis: (12) Mood disorder: Plan is a 64-year-old female who has significant PMH of DM II on insulin, hx of CVA with residual aphasia/R sided weakness, carotid artery stenosis, L subclavian occlusion, HTN, HLD, COPD, Hypothyroidism, GERD, Scleroderma/CREST syn, Mood disorder, Depression with anxiety who presents to [facility] ED secondary to overall feeling weak x 2 days prior to arrival and was found to have sepsis 2/2 UTI. Patient admitted on 07/31 for management of sepsis. Initial labs notable for hgb lower than recent OP records, trend revealed concern for active bleed as hgb went from 7.9 to 6.2. Transfusion delayed given antivel antibody presence, which is notably very rare and finding a unit is difficult--currently [facility] attempting to locate a unit for patient. Urine is notable for GNB, however, in hopes to optimize anemia without blood product, IV iron will be admitted as risk of possible re-infection less than benefit of optimizing anemia in this setting. Search for Lukas-negative, Rh- blood continues. CTA chest/abd/pelvis for signs of bleed negative Discussed with Pathology: Red Blood Cells located in [place]--2 Units of lukas negative, rh- blood. attempting to have untis fedex'd Units of blood received on 08/04 to [place]--however, 1 unit burst while thawing; 1 unit administered Labs from 08/05 with robust response to transfusion, 8.3. Patient reports feeling much improved Plan to talk to family to discussion donation and identifying lukas-negative members -Will need to call reference lab, identify self as potential lukas-negative donors and arrange appointment for testing (Reference lab number [phone], [facility]) Otherwise, patient notably improved. Plan for continued abx, following up on tickbourne/parvo pathologies and resumed plavix with out bleed IgG Lyme positive, plus western blot with multiple positive bands. Continue doxycycline at this time. Patient currently awaiting rehab approval with [facility]. #Lyme IgG positive -Denies any history of lyme disease at this time, given concerns on admission will treat -Lyme IgG western positive: bands 23,39,93 positive -Received 1 week of abx thus far, will continue 2 week course of doxy BID po EOT 08/22 #Acute on chronic macrocytic anemia *stable #Anti-lukas antibody #Iron deficiency anemia #B12 deficiency -History of iron deficiency, on chronic supplementation -Ongoing conversations with Blood Bank--coordinating blood with lukas-negative type to ensure no transfusion reaction as pretreatment likely not able to stave of reaction from transfusion -See antibiody ID note for details on discussion with Dr. Baker from [facility] regarding transfusion "very risky, very last resort" -Will treat patient similar to Scientologist/blood refusal and optimize anemia where possible -Continue B12 IM injection, B12 level 82, plan for 7 day course -Continue empiric folic acid 1g daily -Completed 3 days of Iron Sucrose infusions for goal ferritin >100 and TIBC >20% -minimize hgb drawsQOD -Heme/onc consult for further anemia optimization -No further recommendations -Continue Plavix -GI consulted -Regular diet -EGD as an OP -Anemia labs not suggestive of hemolysis, DIC, myelodysplasia -Smear consistent with anemia (chronic disease, nutritional deficiencies, renal disease) -S/p 1 Unit lukas negative blood -Follow up tick bourne labs -IgG +, IgM -< Western blot 23,39,41,45,93 + given patient's anemia and symptoms at presentation will opt for 2 week treatment in addition to IV abx already received. #Sepsis 2/2 UTI, ecoli *resolved #Acute urinary tract infection POA Hypotensive and tachycardic initially, improved BP to 105/77 and HR 95 after 2L NSS. 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 Large area of encephalomalacia within the left MCA territory compatible with chronic infarct(s), increased in size compared to the 2018 comparison. Expect this will improve with treatment of infection Fall precautions, PT/OT Continue statin Continue plavix 08/07 Continue ASA 81mg #DM type 2 (diabetes mellitus, type 2) A1c 5.3 in Feb 2023 Hold home PO meds Basal/bolus insulin per protocol while in-patient BSG checks AC HS #COPD IS, add flutter valve albuterol prn Start fluticasone/jacobo. inhaler daily #Hypertension Hypotensive in setting of sepsis- hold losartan until BP improves #Hypothyroidism Continue levothyroxine #Mood disorder Continue Mirtazapine, trazodone, venlafaxine #CREST syndrome Has some chronic skin lesions. Not on medications DVT Ppx: SCDs for now Code status: FULL PCP: Renae Dispo: Admitted to PCU. Plan for rehab Awaiting authorization Admission and Anticipated Discharge Date Admission Date: July 31, 2023 Subjective NAEO Eager for discharge to rehab Physical Exam Constitutional: WD/WN, vitals as above Respiratory: normal respiratory effort, lungs clear to auscultation Cardiovascular: RRR, no murmur, no edema Results & Data Results & Data Vital Signs (Past 12 Hours) Vital Signs Temp Pulse Pulse Resp BP Pulse Ox O2 Del Method 08/10/23 10:50 36.3 C L 72 20 139/76 97 Room Air 08/10/23 07:18 36.2 C L 80 18 142/78 H 95 Room Air 08/10/23 07:00 80 Medications Administered Home Medications Medication Instructions Recorded Confirmed Last Taken atorvastatin 80 mg tablet 80 mg PO HS 07/14/18 07/31/23 11/23/21 bisacodyl 5 mg tablet,delayed 5 mg PO HS PRN Constipation 07/14/18 07/31/23 07/13/18 release (Dulcolax (bisacodyl)) docusate calcium 240 mg capsule 240 mg PO DAILY PRN Constipation 07/14/18 07/31/23 07/13/18 (Stool Softener (docusate calcium)) donepezil 10 mg tablet 10 mg PO HS 07/14/18 07/31/23 11/23/21 ezetimibe 10 mg tablet 10 mg PO QAM 07/14/18 07/31/23 11/23/21 ferrous sulfate 325 mg (65 mg 650 mg PO QAM 07/14/18 07/31/23 11/23/21 iron) tablet loratadine 10 mg tablet (Claritin) 10 mg PO HS PRN allergies 07/14/18 07/31/23 11/23/21 losartan 25 mg tablet 12.5 mg PO QAM 07/14/18 07/31/23 11/23/21 metformin 500 mg tablet,extended 1,000 mg PO BID 07/14/18 07/31/23 11/23/21 release 24 hr mirtazapine 30 mg tablet 30 mg PO HS 07/14/18 07/31/23 11/23/21 ropinirole 0.5 mg tablet 0.5 mg PO HS 07/14/18 07/31/23 11/23/21 trazodone 50 mg tablet 50 mg PO HS PRN Pain 07/14/18 07/31/23 10/26/21 venlafaxine 75 mg tablet 75 mg PO QAM 07/14/18 07/31/23 11/23/21 insulin glargine 100 unit/mL (3 24 unit subcut QAM 05/12/19 07/31/23 11/23/21 mL) subcutaneous pen (Basaglar KwikPen U-100 Insulin) clopidogrel 75 mg tablet (Plavix) 75 mg PO QAM 08/25/19 07/31/23 11/23/21 aspirin 81 mg capsule 81 mg PO DAILY 07/31/23 07/31/23 Unknown dulaglutide 0.75 mg/0.5 mL 0.75 mg subcut WK 07/31/23 07/31/23 Unknown subcutaneous pen injector (Trulicity) fluticasone propionate 50 2 spray intranasal DAILY 07/31/23 07/31/23 Unknown mcg/actuation nasal spray,suspension gabapentin 300 mg capsule 300 mg PO BID 07/31/23 07/31/23 Unknown levothyroxine 50 mcg tablet 50 mcg PO DAILY 07/31/23 07/31/23 Unknown pantoprazole 40 mg tablet,delayed 40 mg PO QAM 07/31/23 07/31/23 Unknown release Active Medications Generic Name Dose Route Start Last Admin Trade Name Aly PRN Reason Stop Dose Admin Atorvastatin Calcium 80 mg 07/31/23 21:00 08/09/23 21:03 Atorvastatin 40 Mg Tab PO 08/30/23 20:59 80 mg HS OLIMPIA Administration Clopidogrel Bisulfate 75 mg 08/01/23 09:00 08/10/23 08:30 Clopidogrel Bisulfate 75 Mg Tab PO 08/31/23 08:59 75 mg QAM OLIMPIA Administration Cyanocobalamin 1,000 mcg 08/08/23 09:00 08/10/23 08:29 Cyanocobalamin (B-12) 500 Mcg Tablet PO 09/07/23 08:59 1,000 mcg QAM OLIMPIA Administration Docusate Calcium 240 mg 08/06/23 11:30 08/10/23 08:30 Docusate Calcium 240 Mg Capsule PO 09/05/23 11:29 240 mg DAILY OLIMPIA Administration Donepezil HCl 10 mg 07/31/23 21:00 08/09/23 21:02 Donepezil Hcl 10 Mg Tab PO 08/30/23 20:59 10 mg HS OLIMPIA Administration Doxycycline Hyclate 100 mg 08/08/23 09:00 08/10/23 08:30 Doxycycline Hyclate 100 Mg Cap PO 08/22/23 08:59 100 mg BID OLIMPIA Administration Ezetimibe 10 mg 08/01/23 09:00 08/10/23 08:29 Ezetimibe 10 Mg Tab PO 08/31/23 08:59 10 mg QAM OLIMPIA Administration Fluticasone Propionate 2 sprays 08/01/23 09:00 08/10/23 08:32 Fluticasone Propionate Na Spr 16 Gm Btl CHERIE 08/31/23 08:59 2 sprays DAILY OLIMPIA Administration Fluticasone/Vilanterol 1 puffs 08/07/23 14:30 08/10/23 08:32 Fluticasone/Vilanterol 100/25mcg 14 Puffs/Inhaler INH 09/06/23 14:29 1 puffs DAILY OLIMPIA Administration Folic Acid 1 mg 08/01/23 10:45 08/10/23 08:30 Folic Acid 1 Mg Tab PO 08/31/23 10:44 1 mg QAM OLIMPIA Administration Gabapentin 300 mg 07/31/23 21:00 08/10/23 08:29 Gabapentin 300 Mg Cap PO 08/30/23 20:59 300 mg BID OLIMPIA Administration Insulin Aspart 0 units 07/31/23 16:30 08/10/23 12:25 Insulin Aspart Per Unit Charge SC 08/30/23 16:29 7 units ACHS OLIMPIA Administration Insulin Glargine 0 - 12 units 07/31/23 21:00 08/10/23 08:31 Lantus Per Unit Charge SQ 08/30/23 20:59 8 units BID OLIMPIA Administration Levothyroxine Sodium 50 mcg 08/01/23 06:30 08/10/23 06:02 Levothyroxine Sodium 50 Mcg Tablet PO 08/31/23 06:29 50 mcg DAILYBB OLIMPIA Administration Mirtazapine 30 mg 07/31/23 21:00 08/09/23 21:03 Mirtazapine Tab 15 Mg Tab PO 08/30/23 20:59 30 mg HS OLIMPIA Administration Pantoprazole Sodium 40 mg 08/07/23 09:00 08/10/23 08:30 Pantoprazole 40 Mg Tab PO 09/06/23 08:59 40 mg QAM OLIMPIA Administration Ropinirole HCl 0.5 mg 07/31/23 21:00 08/09/23 21:03 Ropinirole Hcl 0.25 Mg Tablet PO 08/30/23 20:59 0.5 mg HS OLIMPIA Administration Venlafaxine HCl 75 mg 08/01/23 09:00 08/10/23 08:30 Venlafaxine Hcl Xr 75 Mg Capxr PO 08/31/23 08:59 75 mg QAM OLIMPIA Administration
[2023-08-10] MEDS: DONEPEZIL HCL 10 MG TAB PO SCH (20:28)
[2023-08-10] MEDS: ATORVASTATIN 40 MG TAB PO SCH (20:29)
[2023-08-10] MEDS: rOPINIRole HCL 0.25 MG TABLET PO SCH (20:29)
[2023-08-10] MEDS: MIRTAZAPINE TAB 15 MG TAB PO SCH (20:30)
[2023-08-10 20:37] LABS: Parvovirus IgG 0.2 (<0.9); Parvovirus IgM 0.2 (<0.9); Q Fever IgG, Phase I NEGATIVE; Q Fever Phase I IgM Antibody NEGATIVE; Q Fever Phase II IgG Antibody NEGATIVE; Q Fever Phase II IgM Antibody NEGATIVE; R. typhi IgG Ab NOT DETECTED; R. typhi IgM Ab NOT DETECTED; RMSF IgG Ab NOT DETECTED; RMSF IgM Ab NOT DETECTED
[2023-08-11] MEDS: LEVOTHYROXINE SODIUM 50 MCG TABLET PO SCH (06:21)
[2023-08-11 06:36] LABS: Hematocrit (blood only) 30.2 % (37.0-47.0); Hemoglobin 9.2 g/dl (12.0-16.0)
[2023-08-11] MEDS: INSULIN ASPART PER UNIT CHARGE SC SCH ×4 (08:23→20:15)
[2023-08-11] MEDS: LANTUS PER UNIT CHARGE SQ SCH ×2 (08:23→20:37)
[2023-08-11] MEDS: DOXYCYCLINE HYCLATE 100 MG CAP PO SCH ×2 (08:25→20:39)
[2023-08-11] MEDS: GABAPENTIN 300 MG CAP PO SCH ×2 (08:25→20:39)
[2023-08-11] MEDS: FLUTICASONE PROPIONATE NA SPR 16 GM BTL NAE SCH (08:25)
[2023-08-11] MEDS: DOCUSATE CALCIUM 240 MG CAPSULE PO SCH (08:25)
[2023-08-11] MEDS: FLUTICASONE/VILANTEROL 100/25MCG 14 PUFFS/INHALER INH SCH (08:25)
[2023-08-11] MEDS: CLOPIDOGREL BISULFATE 75 MG TAB PO SCH (08:25)
[2023-08-11] MEDS: VENLAFAXINE HCL XR 75 MG CAPXR PO SCH (08:25)
[2023-08-11] MEDS: EZETIMIBE 10 MG TAB PO SCH (08:26)
[2023-08-11] MEDS: CYANOCOBALAMIN (B-12) 500 MCG TABLET PO SCH (08:26)
[2023-08-11] MEDS: PANTOprazole 40 MG TAB PO SCH (08:26)
[2023-08-11] MEDS: ASPIRIN 81 MG ECTAB PO SCH (08:32)
[2023-08-11] MEDS: FOLIC ACID 1 MG TAB PO SCH (08:32)
--- NOTE | 2023-08-11 13:54 | Hospitalist Progress Note ---
Date of Service August 11, 2023 Assessment & Plan (1) Sepsis: (2) Urinary tract infection: (3) Generalized weakness: (4) Anemia: (5) Hypertension: (6) History of CVA with residual deficit: (7) CREST syndrome: (8) Hypothyroidism: (9) PVD (peripheral vascular disease): (10) DM type 2 (diabetes mellitus, type 2): (11) Carotid stenosis: (12) Mood disorder: Plan is a 64-year-old female who has significant PMH of DM II on insulin, hx of CVA with residual aphasia/R sided weakness, carotid artery stenosis, L subclavian occlusion, HTN, HLD, COPD, Hypothyroidism, GERD, Scleroderma/CREST syn, Mood disorder, Depression with anxiety who presents to [facility] ED secondary to overall feeling weak x 2 days prior to arrival and was found to have sepsis 2/2 UTI. Patient admitted on 07/31 for management of sepsis. Initial labs notable for hgb lower than recent OP records, trend revealed concern for active bleed as hgb went from 7.9 to 6.2. Transfusion delayed given antivel antibody presence, which is notably very rare and finding a unit is difficult. Red Blood Cells located in [place]--2 Units of lukasz negative, rh- blood. Units of blood received on 08/04 to [place]--however, 1 unit burst while thawing; 1 unit administered Hemoglobin is stable after transfusion. Otherwise, patient notably improved. Plan for continued abx, following up on tickbourne/parvo pathologies and resumed plavix with out bleed IgG Lyme positive, plus western blot with multiple positive bands. Continue doxycycline at this time. Patient currently awaiting rehab approval with [facility]. #Lyme IgG positive -Denies any history of lyme disease at this time, given concerns on admission will treat -Lyme IgG western positive: bands 23,39,93 positive -Received 1 week of abx thus far, will continue 2 week course of doxy BID po EOT 08/22 #Acute on chronic macrocytic anemia *stable #Anti-lukasz antibody #Iron deficiency anemia #B12 deficiency -History of iron deficiency, on chronic supplementation --Anemia labs not suggestive of hemolysis, DIC, myelodysplasia -Smear consistent with anemia (chronic disease, nutritional deficiencies, renal disease) -S/p 1 Unit lukasz negative blood, 3 days of IV iron. GI consulted during the hospitalization; recommended EGD as outpatient. Continue on Protonix. Monitor for signs or symptoms of bleeding. #Sepsis 2/2 UTI, ecoli *resolved #Acute urinary tract infection POA Hypotensive and tachycardic initially, improved BP to 105/77 and HR 95 after 2L NSS. 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 Large area of enceph alomalacia within the left MCA territory compatible with chronic infarct(s), increased in size compared to the 2018 comparison. Fall precautions, PT/OT Continue statin Continue plavix 08/07 Continue ASA 81mg #DM type 2 (diabetes mellitus, type 2) A1c 5.3 in Feb 2023 Hold home PO meds Basal/bolus insulin per protocol while in-patient BSG checks AC HS #COPD IS, add flutter valve albuterol prn Start fluticasone/jacobo. inhaler daily #Hypertension Home losartan currently on hold given low blood pressure. May DC at discharge. #Hypothyroidism Continue levothyroxine #Mood disorder Continue Mirtazapine, trazodone, venlafaxine #CREST syndrome Has some chronic skin lesions. Not on medications DVT Ppx: SCDs for now Code status: FULL PCP: Renae Dispo: Admitted to PCU. Awaiting bed in rehab. Please note the above document was generated using voice recognition software. It may contain grammatical, syntax or spelling errors. Any formal questions or concerns about the content, text or information contained within the body of this dictation should be directly addressed to the provider for clarification Admission and Anticipated Discharge Date Admission Date: July 31, 2023 Subjective Patient seen and examined at bedside. Comfortable; not in distress. Denies fever, chills, chest pain, shortness of breath, abdominal pain or urinary symptoms. No significant overnight events Review of Systems Review of Systems: All systems reviewed & are unremarkable except as noted in Subjective Physical Exam Physical Exam: Constitutional: Alert oriented x 3; not in any distress. Respiratory: Bilateral vesicular breath sound. Cardiovascular: RRR, no murmur, no edema Vessels: no JVD or carotid bruit Chest: normal inspection of chest Abdomen: normal bowel sounds, soft, nontender, no hepatosplenomegaly Musculoskeletal: no cyanosis or clubbing, extremities motor strength 5/5 Skin: no rashes, warm and dry normal turgor Neurologic: PERRL, EOMI, accommodation nl, no face palsy, no dysarthria CN's II- XI intact bilaterally and moves all extremities Psychiatric: A+Ox3, euthymic affect Results & Data Results & Data Vital Signs (Past 12 Hours) Vital Signs Temp Pulse Pulse Resp BP Pulse Ox O2 Del Method 08/11/23 11:53 37.0 C 85 19 115/70 95 Room Air 08/11/23 07:09 36.5 C 77 18 125/75 95 Room Air 08/11/23 07:00 78 08/11/23 03:00 36.5 C 83 26 H 99/63 L 92 Room Air
[2023-08-11] MEDS: MIRTAZAPINE TAB 15 MG TAB PO SCH (20:38)
[2023-08-11] MEDS: rOPINIRole HCL 0.25 MG TABLET PO SCH (20:39)
[2023-08-11] MEDS: ATORVASTATIN 40 MG TAB PO SCH (20:39)
[2023-08-11] MEDS: DONEPEZIL HCL 10 MG TAB PO SCH (20:39)
[2023-08-12] MEDS: LEVOTHYROXINE SODIUM 50 MCG TABLET PO SCH (06:20)
[2023-08-12] MEDS: PANTOprazole 40 MG TAB PO SCH ×2 (08:15→21:03)
[2023-08-12] MEDS: GABAPENTIN 300 MG CAP PO SCH ×2 (08:15→21:00)
[2023-08-12] MEDS: INSULIN ASPART PER UNIT CHARGE SC SCH ×4 (08:15→20:50)
[2023-08-12] MEDS: LANTUS PER UNIT CHARGE SQ SCH ×2 (08:15→21:04)
[2023-08-12] MEDS: CLOPIDOGREL BISULFATE 75 MG TAB PO SCH (08:15)
[2023-08-12] MEDS: DOCUSATE CALCIUM 240 MG CAPSULE PO SCH (08:16)
[2023-08-12] MEDS: FLUTICASONE PROPIONATE NA SPR 16 GM BTL NAE SCH (08:16)
[2023-08-12] MEDS: FLUTICASONE/VILANTEROL 100/25MCG 14 PUFFS/INHALER INH SCH (08:16)
[2023-08-12] MEDS: ASPIRIN 81 MG ECTAB PO SCH (08:16)
[2023-08-12] MEDS: CYANOCOBALAMIN (B-12) 500 MCG TABLET PO SCH (08:16)
[2023-08-12] MEDS: VENLAFAXINE HCL XR 75 MG CAPXR PO SCH (08:16)
[2023-08-12] MEDS: EZETIMIBE 10 MG TAB PO SCH (08:16)
[2023-08-12] MEDS: DOXYCYCLINE HYCLATE 100 MG CAP PO SCH ×2 (08:16→21:02)
[2023-08-12] MEDS: FOLIC ACID 1 MG TAB PO SCH (08:16)
--- NOTE | 2023-08-12 14:12 | Hospitalist Progress Note ---
Date of Service August 12, 2023 Assessment & Plan (1) Sepsis: (2) Urinary tract infection: (3) Generalized weakness: (4) Anemia: (5) Hypertension: (6) History of CVA with residual deficit: (7) CREST syndrome: (8) Hypothyroidism: (9) PVD (peripheral vascular disease): (10) DM type 2 (diabetes mellitus, type 2): (11) Carotid stenosis: (12) Mood disorder: Plan is a 64-year-old female who has significant PMH of DM II on insulin, hx of CVA with residual aphasia/R sided weakness, carotid artery stenosis, L subclavian occlusion, HTN, HLD, COPD, Hypothyroidism, GERD, Scleroderma/CREST syn, Mood disorder, Depression with anxiety who presents to [facility] ED secondary to overall feeling weak x 2 days prior to arrival and was found to have sepsis 2/2 UTI. Patient admitted on 07/31 for management of sepsis. Initial labs notable for hgb lower than recent OP records, trend revealed concern for active bleed as hgb went from 7.9 to 6.2. Transfusion delayed given antivel antibody presence, which is notably very rare and finding a unit is difficult. Red Blood Cells located in [place]--2 Units of lukasz negative, rh- blood. Units of blood received on 08/04 to [place]--however, 1 unit burst while thawing; 1 unit administered Hemoglobin is stable after transfusion. #Lyme IgG positive -Denies any history of lyme disease at this time, given concerns on admission will treat -Lyme IgG western positive: bands 23,39,93 positive -Received 1 week of abx thus far, will continue 2 week course of doxy BID po EOT 08/22 #Acute on chronic macrocytic anemia *stable #Anti-lukasz antibody #Iron deficiency anemia #B12 deficiency -History of iron deficiency, on chronic supplementation --Anemia labs not suggestive of hemolysis, DIC, myelodysplasia -Smear consistent with anemia (chronic disease, nutritional deficiencies, renal disease) -S/p 1 Unit lukasz negative blood, 3 days of IV iron. GI consulted during the hospitalization; recommended EGD as outpatient. Continue on Protonix. Monitor for signs or symptoms of bleeding. #Sepsis 2/2 UTI, ecoli *resolved #Acute urinary tract infection POA Hypotensive and tachycardic initially, improved BP to 105/77 and HR 95 after 2L NSS. 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 Large area of encephalomalacia within the left MCA territory compatible with chronic infarct(s), increased in size compared to the 2018 comparison. Fall precautions, PT/OT Continue statin Continue plavix 08/07 Continue ASA 81mg #DM type 2 (diabetes mellitus, type 2) A1c 5.3 in Feb 2023 Hold home PO meds Basal/bolus insulin per protocol while in-patient BSG checks AC HS #COPD IS, add flutter valve albuterol prn Start fluticasone/jacobo. inhaler daily #Hypertension Home losartan currently on hold given low blood pressure. May DC at discharge. #Hypothyroidism Continue levothyroxine #Mood disorder Continue Mirtazapine, trazodone, venlafaxine #CREST syndrome Has some chronic skin lesions. Not on medications DVT Ppx: SCDs for now Code status: FULL PCP: Renae Dispo: Admitted to PCU. Awaiting bed in rehab. Please note the above document was generated using voice recognition software. It may contain grammatical, syntax or spelling errors. Any formal questions or concerns about the content, text or information contained within the body of this dictation should be directly addressed to the provider for clarification Admission and Anticipated Discharge Date Admission Date: July 31, 2023 Subjective Patient seen and examined at bedside. She is sitting on the chair at the side of the table. She is comfortable; not in distress. Review of Systems Review of Systems: All systems reviewed & are unremarkable except as noted in Subjective Physical Exam Physical Exam: Constitutional: Alert oriented x 3; not in any distress. Respiratory: Bilateral vesicular breath sound. Cardiovascular: RRR, no murmur, no edema Vessels: no JVD or carotid bruit Chest: normal inspection of chest Abdomen: normal bowel sounds, soft, nontender, no hepatosplenomegaly Musculoskeletal: no cyanosis or clubbing, extremities motor strength 5/5 Skin: no rashes, warm and dry normal turgor Neurologic: PERRL, EOMI, accommodation nl, no face palsy, no dysarthria CN's II- XI intact bilaterally and moves all extremities Psychiatric: A+Ox3, euthymic affect Results & Data Results & Data Vital Signs (Past 12 Hours) Vital Signs Temp Pulse Pulse Resp BP BP Pulse Ox 08/12/23 11:18 36.4 C L 84 19 152/75 H 95 08/12/23 07:14 36.3 C L 74 18 118/64 94 08/12/23 07:00 74 08/12/23 03:05 36.3 C L 79 18 99/45 L 93 O2 Del Method 08/12/23 11:18 Room Air 08/12/23 07:14 Room Air 08/12/23 07:00 08/12/23 03:05 Room Air
[2023-08-12] MEDS: ATORVASTATIN 40 MG TAB PO SCH (21:00)
[2023-08-12] MEDS: MIRTAZAPINE TAB 15 MG TAB PO SCH (21:01)
[2023-08-12] MEDS: DONEPEZIL HCL 10 MG TAB PO SCH (21:01)
[2023-08-12] MEDS: rOPINIRole HCL 0.25 MG TABLET PO SCH (21:03)
[2023-08-13 06:39] LABS: Basophils # (auto) 0.05 K/uL (0.00-0.20); Eosinophils # (auto) 0.17 K/uL (0.00-0.50); Eosinophils % (auto) 3.4 %; Hematocrit (blood only) 31.6 % (37.0-47.0); Hemoglobin 9.4 g/dl (12.0-16.0); Immature Granulocytes # (auto) 0.04 K/uL (0.01-0.20); Immature Granulocytes % (auto) 0.8 %; Lymphocytes # (auto) 1.34 K/uL (1.20-3.40); Lymphocytes % (auto) 26.9 %; Mean Corpuscular Hemoglobin 30.4 pg (25.0-34.0); Mean Corpuscular Hgb Conc 29.7 g/dL (32.0-36.0); Mean Corpuscular Volume 102.3 fL (80.0-100.0); Mean Platelet Volume 10.8 fL (9.4-12.4); Monocytes # (auto) 0.78 K/uL (0.11-0.59); Monocytes % (auto) 15.6 %; Neutrophils # (auto) 2.61 K/uL (1.40-6.50); Neutrophils % (auto) 52.3 %; Nucleated RBC # (auto) 0.06 K/uL (0.00-0.12); Nucleated RBC % (auto) 1.2 %; Platelet Count 328 K/uL (130-400); RDW Coefficient of Variation 22.7 % (11.5-14.5); Red Blood Count 3.09 M/uL (4.20-5.40); White Blood Count 4.99 K/ul (4.8-10.8)
[2023-08-13] MEDS: LEVOTHYROXINE SODIUM 50 MCG TABLET PO SCH (06:48)
[2023-08-13 06:59] LABS: Anisocytosis Present; Macrocytosis Present; Polychromasia 1+; Tear Drop Cells 1+
[2023-08-13] MEDS: ASPIRIN 81 MG ECTAB PO SCH (08:57)
[2023-08-13] MEDS: CLOPIDOGREL BISULFATE 75 MG TAB PO SCH (08:57)
[2023-08-13] MEDS: CYANOCOBALAMIN (B-12) 500 MCG TABLET PO SCH (08:57)
[2023-08-13] MEDS: DOCUSATE CALCIUM 240 MG CAPSULE PO SCH (08:57)
[2023-08-13] MEDS: DOXYCYCLINE HYCLATE 100 MG CAP PO SCH ×2 (08:57→20:50)
[2023-08-13] MEDS: VENLAFAXINE HCL XR 75 MG CAPXR PO SCH (08:58)
[2023-08-13] MEDS: FOLIC ACID 1 MG TAB PO SCH (08:58)
[2023-08-13] MEDS: EZETIMIBE 10 MG TAB PO SCH (08:58)
[2023-08-13] MEDS: PANTOprazole 40 MG TAB PO SCH ×2 (08:58→20:50)
[2023-08-13] MEDS: FLUTICASONE PROPIONATE NA SPR 16 GM BTL NAE SCH (08:58)
[2023-08-13] MEDS: FLUTICASONE/VILANTEROL 100/25MCG 14 PUFFS/INHALER INH SCH (08:58)
[2023-08-13] MEDS: GABAPENTIN 300 MG CAP PO SCH ×2 (08:58→20:52)
[2023-08-13] MEDS: LANTUS PER UNIT CHARGE SQ SCH ×2 (09:04→20:53)
[2023-08-13] MEDS: INSULIN ASPART PER UNIT CHARGE SC SCH ×4 (09:05→20:34)
--- NOTE | 2023-08-13 15:44 | Hospitalist Progress Note ---
Date of Service August 13, 2023 Assessment & Plan (1) Sepsis: (2) Urinary tract infection: (3) Generalized weakness: (4) Anemia: (5) Hypertension: (6) History of CVA with residual deficit: (7) CREST syndrome: (8) Hypothyroidism: (9) PVD (peripheral vascular disease): (10) DM type 2 (diabetes mellitus, type 2): (11) Carotid stenosis: (12) Mood disorder: Plan is a 64-year-old female who has significant PMH of DM II on insulin, hx of CVA with residual aphasia/R sided weakness, carotid artery stenosis, L subclavian occlusion, HTN, HLD, COPD, Hypothyroidism, GERD, Scleroderma/CREST syn, Mood disorder, Depression with anxiety who presents to [facility] ED secondary to overall feeling weak x 2 days prior to arrival and was found to have sepsis 2/2 UTI. Sepsis 2/2 UTI, ecoli *resolved Acute urinary tract infection POA Hypotensive and tachycardic initially, improved BP to 105/77 and HR 95 after 2L NSS. WBC 13.76K, improved since admission Lactate resolved following admission MRSA swab negative, discontinue vancomycin Transitioned to ertapenem given generally poor clinical response, will reassess for any meaningful improvement Discontinue ertapenem, 08/07 Acute on chronic macrocytic anemia *stable Anti-lukasz antibody Iron deficiency anemia B12 deficiency Patient admitted on 07/31 for management of sepsis. Initial labs notable for hgb lower than recent OP records, trend revealed concern for active bleed as hgb went from 7.9 to 6.2. Transfusion delayed given antivel antibody presence, which is notably very rare and finding a unit is difficult. Red Blood Cells located in [place]--2 Units of lukasz negative, rh- blood. Units of blood received on 08/04 to [place]--however, 1 unit burst while thawing; 1 unit administered Hemoglobin is stable after transfusion. Anemia workup is not not suggestive of hemolysis, DIC, myelodysplasia Smear consistent with anemia (chronic disease, nutritional deficiencies, renal disease) S/p 1 Unit lukasz negative blood, 3 days of IV iron. Hemoglobin has been stable since then at 9.4 Lyme IgG positive -Denies any history of lyme disease at this time, given concerns on admission will treat -Lyme IgG western positive: bands 23,39,93 positive -Received 1 week of abx thus far, will continue 2 week course of doxy BID po EOT 08/22 GI consulted during the hospitalization; recommended EGD as outpatient. Continue on Protonix. Monitor for signs or symptoms of bleeding. 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 Large area of encephalomalacia within the left MCA territory compatible with chronic infarct(s), increased in size compared to the 2018 comparison. Fall precautions, PT/OT Continue statin Continue plavix 08/07 Continue ASA 81mg DM type 2 (diabetes mellitus, type 2) A1c 5.3 in Feb 2023 Hold home PO meds Basal/bolus insulin per protocol while in-patient BSG checks AC HS COPD IS, add flutter valve albuterol prn Start fluticasone/jacobo. inhaler daily No acute symptoms-no wheezing and no shortness of breath shortness Has been saturating normally on room air Hypertension Home losartan currently on hold given low blood pressure. May DC at discharge. Hypothyroidism Continue levothyroxine Mood disorder Continue Mirtazapine, trazodone, venlafaxine CREST syndrome Has some chronic skin lesions. Not on medications DVT Ppx: SCDs for now Will not give any pharmacologic prophylaxis due to very difficult to get any blood in case of any bleeding Continue Plavix and aspirin And increase ambulation Code status: FULL PCP: Renae Dispo: Admitted to PCU. Awaiting bed in rehab. Please note the above document was generated using voice recognition software. It may contain grammatical, syntax or spelling errors. Any formal questions or concerns about the content, text or information contained within the body of this dictation should be directly addressed to the provider for clarification Admission and Anticipated Discharge Date Admission Date: July 31, 2023 Subjective 08/13/2023 The patient was seen and examined in telemetry unit She has been complaining of some pain in the right knee area Denies any other significant symptoms Awaiting placement Review of Systems Review of Systems: All systems reviewed and are unremarkable except as noted below Physical Exam Physical Exam: Sitting on a chair without any acute distress Constitutional: well developed, well nourished, + ill appearing and + obese Eyes: PERRL, conjunctivae normal, anicteric sclerae ENMT: external ear and nose normal, oropharynx normal Neck: trachea midline, no thyromegaly Respiratory: no respiratory distress Auscultation: lungs clear to auscultation bilaterally Cardiovascular: Rate/Rhythm: regular rate and regular rhythm; not tachycardic Heart Sounds: normal S1 and normal S2; no murmur Extremities: + edema (Trace edema bilaterally) Gastrointestinal (Abdomen): Inspection/Auscultation: normal bowel sounds; abdomen not distended Percussion/Palpation: abdomen soft; abdomen nontender Musculoskeletal: No acute arthritis involving any of the joint. Minimal tenderness at the left knee joint and adjoining areas Neurologic: normal touch/pain/proprioception and moves all extremities; no focal motor deficits Lymphatic: no cervical or axillary lymphadenopathy Results & Data Results & Data Vital Signs (Past 12 Hours) Vital Signs Temp Pulse Pulse Resp BP BP Pulse Ox 08/13/23 15:01 36.6 C 80 18 136/69 98 08/13/23 12:14 36.6 C 78 17 125/68 96 08/13/23 08:00 88 08/13/23 07:15 36.4 C L 82 17 147/84 H 96 08/13/23 03:47 36.4 C L 84 18 115/70 94 O2 Del Method 08/13/23 15:01 Room Air 08/13/23 12:14 Room Air 08/13/23 08:00 08/13/23 07:15 Room Air 08/13/23 03:47 Room Air Laboratory Results Short CBC 08/13/23 Range/Units 06:00 WBC 4.99 (4.8-10.8) K/ul Hgb 9.4 L (12.0-16.0) g/dl Hct 31.6 L (37.0-47.0) % Plt Count 328 (130-400) K/uL Diagnostic Findings Short CBC 08/13/23 Range/Units 06:00 WBC 4.99 (4.8-10.8) K/ul Hgb 9.4 L (12.0-16.0) g/dl Hct 31.6 L (37.0-47.0) % Plt Count 328 (130-400) K/uL Medications Administered Current Inpatient Medications Acetaminophen (Acetaminophen 325 Mg Tab) 650 mg PO Q4H PRN PRN Reason: Pain or Fever Stop: 08/30/23 16:04 Aspirin (Aspirin 81 Mg Ectab) 81 mg PO QAM [facility] Stop: 09/10/23 08:59 Last Admin: 08/13/23 08:57 Dose: 81 mg Atorvastatin Calcium (Atorvastatin 40 Mg Tab) 80 mg PO HS [facility] Stop: 08/30/23 20:59 Last Admin: 08/12/23 21:00 Dose: 80 mg Bisacodyl (Bisacodyl 5 Mg Tabec) 5 mg PO HS PRN PRN Reason: Constipation Stop: 08/30/23 16:04 Clopidogrel Bisulfate (Clopidogrel Bisulfate 75 Mg Tab) [facility] Stop: 08/31/23 08:59 Last Admin: 08/13/23 08:57 Dose: 75 mg Cyanocobalamin (Cyanocobalamin (B-12) 500 Mcg Tablet) 1,000 mcg PO QAM [facility] Stop: 09/07/23 08:59 Last Admin: 08/13/23 08:57 Dose: 1,000 mcg Dextrose (Dextrose 50% 50 Ml Syringe) 25 - 50 ml IV UD PRN; Protocol PRN Reason: Hypoglycemia Protocol Stop: 08/30/23 16:04 Docusate Calcium (Docusate Calcium 240 Mg Capsule) 240 mg PO DAILY [facility] Stop: 09/05/23 11:29 Last Admin: 08/13/23 08:57 Dose: 240 mg Donepezil HCl (Donepezil Hcl 10 Mg Tab) 10 mg PO HS [facility] Stop: 08/30/23 20:59 Last Admin: 08/12/23 21:01 Dose: 10 mg Doxycycline Hyclate (Doxycycline Hyclate 100 Mg Cap) 100 mg PO BID [facility] Stop: 08/18/23 08:59 Last Admin: 08/13/23 08:57 Dose: 100 mg Ezetimibe (Ezetimibe 10 Mg Tab) 10 mg PO QAM [facility] Stop: 08/31/23 08:59 Last Admin: 08/13/23 08:58 Dose: 10 mg Fluticasone Propionate (Fluticasone Propionate Na Spr 16 Gm Btl) 2 sprays CHERIE DAILY [facility] Stop: 08/31/23 08:59 Last Admin: 08/13/23 08:58 Dose: 2 sprays Fluticasone/Vilanterol (Fluticasone/Vilanterol 100/25mcg 14 Puffs/Inhaler) 1 puffs INH DAILY [facility] Stop: 09/06/23 14:29 Last Admin: 08/13/23 08:58 Dose: 1 puffs Folic Acid (Folic Acid 1 Mg Tab) 1 mg PO QAM [facility] Stop: 08/31/23 10:44 Last Admin: 08/13/23 08:58 Dose: 1 mg Gabapentin (Gabapentin 300 Mg Cap) 300 mg PO BID [facility] Stop: 08/30/23 20:59 Last Admin: 08/13/23 08:58 Dose: 300 mg Glucagon (Glucagon For Inj 1 Mg Vial) 1 mg SQ UD PRN; Protocol PRN Reason: Hypoglycemia Protocol Stop: 08/30/23 16:04 Glucose (Glucose 10 Tab/Tube) 4 - 8 tab PO UD PRN; Protocol PRN Reason: Hypoglycemia Treatment Stop: 08/30/23 16:04 Glucose (Glucose 40% Gel 15 Gm Tube) 15 - 30 gm PO UD PRN; Protocol PRN Reason: Hypoglycemia Protocol Stop: 08/30/23 16:04 Insulin Aspart (Insulin Aspart Per Unit Charge) 0 units SC ACHS [facility] Stop: 08/30/23 16:29 Last Admin: 08/13/23 12:30 Dose: 6 units Insulin Glargine (Lantus Per Unit Charge) 0 - 12 units SQ BID [facility] Stop: 08/30/23 20:59 Last Admin: 08/13/23 09:04 Dose: 8 units Levothyroxine Sodium (Levothyroxine Sodium 50 Mcg Tablet) 50 mcg PO DAILYBB [facility] Stop: 08/31/23 06:29 Last Admin: 08/13/23 06:48 Dose: 50 mcg Loratadine (Loratadine 10 Mg Tab) 10 mg PO HS PRN PRN Reason: allergies Stop: 08/30/23 16:04 Mirtazapine (Mirtazapine Tab 15 Mg Tab) 30 mg PO HS [facility] Stop: 08/30/23 20:59 Last Admin: 08/12/23 21:01 Dose: 30 mg Miscellaneous (Carbohydrates For Hypoglycemia ) 15 - 30 gm PO UD PRN PRN Reason: Hypoglycemia Protocol Stop: 08/30/23 16:04 Last Admin: 08/10/23 16:30 Dose: 15 gm Ondansetron HCl (Ondansetron Inj 2 Mg/Ml 2 Ml Vial) 4 mg IV Q6H PRN PRN Reason: Nausea Stop: 08/30/23 16:04 Pantoprazole Sodium (Pantoprazole 40 Mg Tab) 40 mg PO BID [facility] Stop: 09/11/23 20:59 Last Admin: 08/13/23 08:58 Dose: 40 mg Polyethylene Glycol (Polyethylene (Miralax) 17 Gm Pack) 17 gm PO DAILY PRN PRN Reason: Constipation Stop: 08/30/23 16:04 Ropinirole HCl (Ropinirole Hcl 0.25 Mg Tablet) 0.5 mg PO HS [facility] Stop: 08/30/23 20:59 Last Admin: 08/12/23 21:03 Dose: 0.5 mg Trazodone HCl (Trazodone Hcl 50 Mg Tab) 50 mg PO HS PRN PRN Reason: Sleep Stop: 08/30/23 16:04 Venlafaxine HCl (Venlafaxine Hcl Xr 75 Mg Capxr) 75 mg PO QAM [facility] Stop: 08/31/23 08:59 Last Admin: 08/13/23 08:58 Dose: 75 mg
[2023-08-13] MEDS: DONEPEZIL HCL 10 MG TAB PO SCH (20:50)
[2023-08-13] MEDS: rOPINIRole HCL 0.25 MG TABLET PO SCH (20:51)
[2023-08-13] MEDS: ATORVASTATIN 40 MG TAB PO SCH (20:51)
[2023-08-13] MEDS: MIRTAZAPINE TAB 15 MG TAB PO SCH (20:53)
[2023-08-14] MEDS: LEVOTHYROXINE SODIUM 50 MCG TABLET PO SCH (06:11)
[2023-08-14] MEDS: CLOPIDOGREL BISULFATE 75 MG TAB PO SCH (08:21)
[2023-08-14] MEDS: EZETIMIBE 10 MG TAB PO SCH (08:21)
[2023-08-14] MEDS: VENLAFAXINE HCL XR 75 MG CAPXR PO SCH (08:21)
[2023-08-14] MEDS: CYANOCOBALAMIN (B-12) 500 MCG TABLET PO SCH (08:21)
[2023-08-14] MEDS: DOXYCYCLINE HYCLATE 100 MG CAP PO SCH ×2 (08:21→20:03)
[2023-08-14] MEDS: DOCUSATE CALCIUM 240 MG CAPSULE PO SCH (08:21)
[2023-08-14] MEDS: GABAPENTIN 300 MG CAP PO SCH ×2 (08:21→20:05)
[2023-08-14] MEDS: ASPIRIN 81 MG ECTAB PO SCH (08:21)
[2023-08-14] MEDS: PANTOprazole 40 MG TAB PO SCH ×2 (08:21→20:03)
[2023-08-14] MEDS: FOLIC ACID 1 MG TAB PO SCH (08:22)
[2023-08-14] MEDS: FLUTICASONE/VILANTEROL 100/25MCG 14 PUFFS/INHALER INH SCH (08:22)
[2023-08-14] MEDS: FLUTICASONE PROPIONATE NA SPR 16 GM BTL NAE SCH (08:22)
[2023-08-14] MEDS: LANTUS PER UNIT CHARGE SQ SCH ×2 (08:26→20:18)
[2023-08-14] MEDS: INSULIN ASPART PER UNIT CHARGE SC SCH ×4 (08:27→20:18)
--- NOTE | 2023-08-14 13:20 | Hospitalist Progress Note ---
Date of Service August 14, 2023 Assessment & Plan (1) Sepsis: (2) Urinary tract infection: (3) Generalized weakness: (4) Anemia: (5) Hypertension: (6) History of CVA with residual deficit: (7) CREST syndrome: (8) Hypothyroidism: (9) PVD (peripheral vascular disease): (10) DM type 2 (diabetes mellitus, type 2): (11) Carotid stenosis: (12) Mood disorder: Plan is a 64-year-old female who has significant PMH of DM II on insulin, hx of CVA with residual aphasia/R sided weakness, carotid artery stenosis, L subclavian occlusion, HTN, HLD, COPD, Hypothyroidism, GERD, Scleroderma/CREST syn, Mood disorder, Depression with anxiety who presents to [facility] ED secondary to overall feeling weak x 2 days prior to arrival and was found to have sepsis 2/2 UTI. Sepsis 2/2 UTI, ecoli *resolved Acute urinary tract infection POA Hypotensive and tachycardic initially, improved BP to 105/77 and HR 95 after 2L NSS. WBC 13.76K, improved since admission Lactate resolved following admission MRSA swab negative, discontinue vancomycin Transitioned to ertapenem given generally poor clinical response, will reassess for any meaningful improvement Discontinue ertapenem, 08/07 Remains free from any symptoms of UTI Acute on chronic macrocytic anemia *stable Anti-lukasz antibody Iron deficiency anemia B12 deficiency Patient admitted on 07/31 for management of sepsis. Initial labs notable for hgb lower than recent OP records, trend revealed concern for active bleed as hgb went from 7.9 to 6.2. Transfusion delayed given antivel antibody presence, which is notably very rare and finding a unit is difficult. Red Blood Cells located in [place]--2 Units of lukasz negative, rh- blood. Units of blood received on 08/04 to [place]--however, 1 unit burst while thawing; 1 unit administered Hemoglobin is stable after transfusion. Anemia workup is not not suggestive of hemolysis, DIC, myelodysplasia Smear consistent with anemia (chronic disease, nutritional deficiencies, renal disease) S/p 1 Unit lukasz negative blood, 3 days of IV iron. Hemoglobin has been stable since then at 9.4 Denies any symptoms of anemia and hemoglobin remains stable at 9.4 Lyme IgG positive -Denies any history of lyme disease at this time, given concerns on admission will treat -Lyme IgG western positive: bands 23,39,93 positive -Received 1 week of abx thus far, will continue 2 week course of doxy BID po EOT 08/22 GI consulted during the hospitalization; recommended EGD as outpatient. Continue on Protonix. Monitor for signs or symptoms of bleeding. 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 Large area of encephalomalacia within the left MCA territory compatible with chronic infarct(s), increased in size compared to the 2018 comparison. Has had PT evaluation and remains stable to be transferred to a facility when approved Fall precautions, PT/OT Continue statin Continue plavix 08/07 Continue ASA 81mg DM type 2 (diabetes mellitus, type 2) A1c 5.3 in Feb 2023 Hold home PO meds Basal/bolus insulin per protocol while in-patient BSG checks AC HS COPD IS, add flutter valve albuterol prn Start fluticasone/jacobo. inhaler daily No acute symptoms-no wheezing and no shortness of breath shortness Has been saturating normally on room air Hypertension Home losartan currently on hold given low blood pressure. May DC at discharge. Hypothyroidism Continue levothyroxine Mood disorder Continue Mirtazapine, trazodone, venlafaxine CREST syndrome Has some chronic skin lesions. Not on medications DVT Ppx: SCDs for now Will not give any pharmacologic prophylaxis due to very difficult to get any blood in case of any bleeding Continue Plavix and aspirin And increase ambulation Code status: FULL PCP: Renae Dispo: Admitted to PCU. Awaiting bed in rehab. Please note the above document was generated using voice recognition software. It may contain grammatical, syntax or spelling errors. Any formal questions or concerns about the content, text or information contained within the body of this dictation should be directly addressed to the provider for clarification Admission and Anticipated Discharge Date Admission Date: July 31, 2023 Subjective 08/13/2023 The patient was seen and examined in telemetry unit She has been complaining of some pain in the right knee area Denies any other sign 08/14/2023 The patient was seen and examined in telemetry unit She has been complaining of some pain in the right knee area without any swelling Her weakness is better Denies any other significant symptoms Review of Systems Review of Systems: All systems reviewed and are unremarkable except as noted below Physical Exam Physical Exam: Sitting on a chair without any acute distress Constitutional: well developed, well nourished, + ill appearing and + obese Eyes: PERRL, conjunctivae normal, anicteric sclerae ENMT: external ear and nose normal, oropharynx normal Neck: trachea midline, no thyromegaly Respiratory: no respiratory distress Auscultation: lungs clear to auscultation bilaterally Cardiovascular: Rate/Rhythm: regular rate and regular rhythm; not tachycardic Heart Sounds: normal S1 and normal S2; no murmur Extremities: + edema (Trace edema bilaterally) Gastrointestinal (Abdomen): Inspection/Auscultation: normal bowel sounds; abdomen not distended Percussion/Palpation: abdomen soft; abdomen nontender Musculoskeletal: Right knee movement is not painful but noted to have tenderness over the right knee adjoining areas Neurologic: normal touch/pain/proprioception and moves all extremities; no focal motor deficits Lymphatic: no cervical or axillary lymphadenopathy Results & Data Results & Data Vital Signs (Past 12 Hours) Vital Signs Temp Pulse Pulse Resp BP Pulse Ox O2 Del Method 08/14/23 11:32 36.7 C 90 16 131/58 L 95 Room Air 08/14/23 08:02 36.5 C 86 18 157/98 H 96 Room Air 08/14/23 08:00 83 08/14/23 08:00 Room Air 08/14/23 04:25 36.5 C 82 17 105/44 L 94 Room Air Medications Administered Current Inpatient Medications Acetaminophen (Acetaminophen 325 Mg Tab) 650 mg PO Q4H PRN PRN Reason: Pain or Fever Stop: 08/30/23 16:04 Aspirin (Aspirin 81 Mg Ectab) 81 mg PO QAM [facility] Stop: 09/10/23 08:59 Last Admin: 08/14/23 08:21 Dose: 81 mg Atorvastatin Calcium (Atorvastatin 40 Mg Tab) 80 mg PO HS [place] Stop: 08/30/23 20:59 Last Admin: 08/13/23 20:51 Dose: 80 mg Bisacodyl (Bisacodyl 5 Mg Tabec) 5 mg PO HS PRN PRN Reason: Constipation Stop: 08/30/23 16:04 Clopidogrel Bisulfate (Clopidogrel Bisulfate 75 Mg Tab) 75 mg PO QAM [facility] Stop: 08/31/23 08:59 Last Admin: 08/14/23 08:21 Dose: 75 mg Cyanocobalamin (Cyanocobalamin (B-12) 500 Mcg Tablet) 1,000 mcg PO QAM [facility] Stop: 09/07/23 08:59 Last Admin: 08/14/23 08:21 Dose: 1,000 mcg Dextrose (Dextrose 50% 50 Ml Syringe) 25 - 50 ml IV UD PRN; Protocol PRN Reason: Hypoglycemia Protocol Stop: 08/30/23 16:04 Diclofenac Sodium (Diclofenac Sod 1% Gel 100 Gm Tube) 2 gm EXT TID [facility]; Protocol Stop: 09/13/23 13:59 Docusate Calcium (Docusate Calcium 240 Mg Capsule) 240 mg PO DAILY [facility] Stop: 09/05/23 11:29 Last Admin: 08/14/23 08:21 Dose: 240 mg Donepezil HCl (Donepezil Hcl 10 Mg Tab) 10 mg PO HS [facility] Stop: 08/30/23 20:59 Last Admin: 08/13/23 20:50 Dose: 10 mg Doxycycline Hyclate (Doxycycline Hyclate 100 Mg Cap) 100 mg PO BID [facility] Stop: 08/18/23 08:59 Last Admin: 08/14/23 08:21 Dose: 100 mg [facility]etimibe ([facility] 10 Mg Tab) [facility] Stop: 08/31/23 08:59 Last Admin: 08/14/23 08:21 Dose: 10 mg Fluticasone Propionate (Fluticasone Propionate Na Spr 16 Gm Btl) 2 sprays CHERIE DAILY [facility] Stop: 08/31/23 08:59 Last Admin: 08/14/23 08:22 Dose: 2 sprays Fluticasone/Vilanterol (Fluticasone/Vilanterol 100/25mcg 14 Puffs/Inhaler) 1 puffs INH DAILY [facility] Stop: 09/06/23 14:29 Last Admin: 08/14/23 08:22 Dose: 1 puffs Folic Acid (Folic Acid 1 Mg Tab) [facility] [place] [facility] Stop: 08/31/23 10:44 Last Admin: 08/14/23 08:22 Dose: 1 mg Gabapentin (Gabapentin 300 Mg Cap) 300 mg PO BID [facility] Stop: 08/30/23 20:59 Last Admin: 08/14/23 08:21 Dose: 300 mg Glucagon (Glucagon For Inj 1 Mg Vial) 1 mg SQ UD PRN; Protocol PRN Reason: Hypoglycemia Protocol Stop: 08/30/23 16:04 Glucose (Glucose 10 Tab/Tube) 4 - 8 tab PO UD PRN; Protocol PRN Reason: Hypoglycemia Treatment Stop: 08/30/23 16:04 Glucose (Glucose 40% Gel 15 Gm Tube) 15 - 30 gm PO UD PRN; Protocol PRN Reason: Hypoglycemia Protocol Stop: 08/30/23 16:04 Insulin Aspart (Insulin Aspart Per Unit Charge) 0 units SC ACHS [facility] Stop: 08/30/23 16:29 Last Admin: 08/14/23 12:40 Dose: 6 units Insulin Glargine (Lantus Per Unit Charge) 0 - 12 units SQ BID [facility] Stop: 08/30/23 20:59 Last Admin: 08/14/23 08:26 Dose: 8 units Levothyroxine Sodium (Levothyroxine Sodium 50 Mcg Tablet) 50 mcg PO DAILYBB [facility] Stop: 08/31/23 06:29 Last Admin: 08/14/23 06:11 Dose: 50 mcg Loratadine (Loratadine 10 Mg Tab) 10 mg PO HS PRN PRN Reason: allergies Stop: 08/30/23 16:04 Mirtazapine (Mirtazapine Tab 15 Mg Tab) 30 mg PO HS [facility] Stop: 08/30/23 20:59 Last Admin: 08/13/23 20:53 Dose: 30 mg Miscellaneous (Carbohydrates For Hypoglycemia ) 15 - 30 gm PO UD PRN PRN Reason: Hypoglycemia Protocol Stop: 08/30/23 16:04 Last Admin: 08/10/23 16:30 Dose: 15 gm Ondansetron HCl (Ondansetron Inj 2 Mg/Ml 2 Ml Vial) 4 mg IV Q6H PRN PRN Reason: Nausea Stop: 08/30/23 16:04 Pantoprazole Sodium (Pantoprazole 40 Mg Tab) 40 mg PO BID [facility] Stop: 09/11/23 20:59 Last Admin: 08/14/23 08:21 Dose: 40 mg Polyethylene Glycol (Polyethylene (Miralax) 17 Gm Pack) 17 gm PO DAILY PRN PRN Reason: Constipation Stop: 08/30/23 16:04 Ropinirole HCl (Ropinirole Hcl 0.25 Mg Tablet) 0.5 mg PO HS [facility] Stop: 08/30/23 20:59 Last Admin: 08/13/23 20:51 Dose: 0.5 mg Trazodone HCl (Trazodone Hcl 50 Mg Tab) 50 mg PO HS PRN PRN Reason: Sleep Stop: 08/30/23 16:04 Venlafaxine HCl (Venlafaxine Hcl Xr 75 Mg Capxr) 75 mg PO QAM [facility] Stop: 08/31/23 08:59 Last Admin: 08/14/23 08:21 Dose: 75 mg
[2023-08-14] MEDS: DICLOFENAC SOD 1% GEL 100 GM TUBE EXT SCH ×2 (14:32→20:03)
[2023-08-14] MEDS: MIRTAZAPINE TAB 15 MG TAB PO SCH (20:03)
[2023-08-14] MEDS: DONEPEZIL HCL 10 MG TAB PO SCH (20:03)
[2023-08-14] MEDS: rOPINIRole HCL 0.25 MG TABLET PO SCH (20:03)
[2023-08-14] MEDS: ATORVASTATIN 40 MG TAB PO SCH (20:04)
[2023-08-15] MEDS: LEVOTHYROXINE SODIUM 50 MCG TABLET PO SCH (06:01)
[2023-08-15 07:22] LABS: Basophils # (auto) 0.07 K/uL (0.00-0.20); Basophils % (auto) 1.3 %; Eosinophils # (auto) 0.12 K/uL (0.00-0.50); Eosinophils % (auto) 2.3 %; Hematocrit (blood only) 26.2 % (37.0-47.0); Hemoglobin 8.1 g/dl (12.0-16.0); Immature Granulocytes # (auto) 0.06 K/uL (0.01-0.20); Immature Granulocytes % (auto) 1.1 %; Lymphocytes # (auto) 1.24 K/uL (1.20-3.40); Lymphocytes % (auto) 23.7 %; Mean Corpuscular Hemoglobin 30.9 pg (25.0-34.0); Mean Corpuscular Hgb Conc 30.9 g/dL (32.0-36.0); Mean Platelet Volume 10.5 fL (9.4-12.4); Monocytes # (auto) 0.83 K/uL (0.11-0.59); Monocytes % (auto) 15.8 %; Neutrophils # (auto) 2.92 K/uL (1.40-6.50); Neutrophils % (auto) 55.8 %; Nucleated RBC # (auto) 0.09 K/uL (0.00-0.12); Nucleated RBC % (auto) 1.7 %; Platelet Count 296 K/uL (130-400); RDW Coefficient of Variation 22.9 % (11.5-14.5); RDW Standard Deviation 83.5 fL (36.4-46.3); Red Blood Count 2.62 M/uL (4.20-5.40); White Blood Count 5.24 K/ul (4.8-10.8)
[2023-08-15 07:38] LABS: BUN Creatinine Ratio 35.6 (10-20); Calcium 8.9 mg/dl (8.6-10.3); Creatinine Clr Calc Pharmacy 68.3 ml/min; Est GFR (African American) 98.1 ml/min; Est GFR (Non-African American) 84.6 ml/min; Potassium 4.2 mmol/L (3.5-5.1)
[2023-08-15 07:45] LABS: Anisocytosis Present; Polychromasia 1+; Tear Drop Cells 1+
[2023-08-15] MEDS: INSULIN ASPART PER UNIT CHARGE SC SCH ×4 (08:46→20:23)
[2023-08-15] MEDS: CYANOCOBALAMIN (B-12) 500 MCG TABLET PO SCH (08:47)
[2023-08-15] MEDS: ASPIRIN 81 MG ECTAB PO SCH (08:48)
[2023-08-15] MEDS: CLOPIDOGREL BISULFATE 75 MG TAB PO SCH (08:48)
[2023-08-15] MEDS: DOCUSATE CALCIUM 240 MG CAPSULE PO SCH (08:48)
[2023-08-15] MEDS: EZETIMIBE 10 MG TAB PO SCH (08:48)
[2023-08-15] MEDS: GABAPENTIN 300 MG CAP PO SCH ×2 (08:48→20:22)
[2023-08-15] MEDS: PANTOprazole 40 MG TAB PO SCH ×2 (08:48→20:22)
[2023-08-15] MEDS: FOLIC ACID 1 MG TAB PO SCH (08:48)
[2023-08-15] MEDS: DOXYCYCLINE HYCLATE 100 MG CAP PO SCH ×2 (08:48→20:21)
[2023-08-15] MEDS: FLUTICASONE PROPIONATE NA SPR 16 GM BTL NAE SCH (08:49)
[2023-08-15] MEDS: DICLOFENAC SOD 1% GEL 100 GM TUBE EXT SCH ×3 (08:49→20:21)
[2023-08-15] MEDS: FLUTICASONE/VILANTEROL 100/25MCG 14 PUFFS/INHALER INH SCH (08:50)
[2023-08-15] MEDS: LANTUS PER UNIT CHARGE SQ SCH ×2 (08:53→20:32)
[2023-08-15] MEDS: VENLAFAXINE HCL XR 75 MG CAPXR PO SCH (09:01)
--- NOTE | 2023-08-15 14:19 | Hospitalist Progress Note ---
Date of Service August 15, 2023 Assessment & Plan (1) Sepsis: (2) Urinary tract infection: (3) Generalized weakness: (4) Anemia: (5) Hypertension: (6) History of CVA with residual deficit: (7) CREST syndrome: (8) Hypothyroidism: (9) PVD (peripheral vascular disease): (10) DM type 2 (diabetes mellitus, type 2): (11) Carotid stenosis: (12) Mood disorder: Plan is a 64-year-old female who has significant PMH of DM II on insulin, hx of CVA with residual aphasia/R sided weakness, carotid artery stenosis, L subclavian occlusion, HTN, HLD, COPD, Hypothyroidism, GERD, Scleroderma/CREST syn, Mood disorder, Depression with anxiety who presents to [facility] ED secondary to overall feeling weak x 2 days prior to arrival and was found to have sepsis 2/2 UTI. Sepsis 2/2 UTI, ecoli *resolved Acute urinary tract infection POA Hypotensive and tachycardic initially, improved BP to 105/77 and HR 95 after 2L NSS. WBC 13.76K, improved since admission Lactate resolved following admission MRSA swab negative, discontinue vancomycin Transitioned to ertapenem given generally poor clinical response, will reassess for any meaningful improvement Discontinue ertapenem, 08/07 Remains free from any symptoms of UTI Remains stable without any urinary symptoms, fever and or chills Acute on chronic macrocytic anemia *stable Anti-lukasz antibody Iron deficiency anemia B12 deficiency Patient admitted on 07/31 for management of sepsis. Initial labs notable for hgb lower than recent OP records, trend revealed concern for active bleed as hgb went from 7.9 to 6.2. Transfusion delayed given antivel antibody presence, which is notably very rare and finding a unit is difficult. Red Blood Cells located in [place]--2 Units of lukasz negative, rh- blood. Units of blood received on 08/04 to [place]--however, 1 unit burst while thawing; 1 unit administered Hemoglobin is stable after transfusion. Anemia workup is not not suggestive of hemolysis, DIC, myelodysplasia Smear consistent with anemia (chronic disease, nutritional deficiencies, renal disease) S/p 1 Unit lukasz negative blood, 3 days of IV iron. Hemoglobin has been stable since then at 9.4 Denies any symptoms of anemia and hemoglobin remains stable at 9.4 Hemoglobin dropped to 8.1-without any evidence of bleeding We will check CBC tomorrow Lyme IgG positive -Denies any history of lyme disease at this time, given concerns on admission will treat -Lyme IgG western positive: bands 23,39,93 positive -Received 1 week of abx thus far, will continue 2 week course of doxy BID po EOT 08/22 GI consulted during the hospitalization; recommended EGD as outpatient. Continue on Protonix. Monitor for signs or symptoms of bleeding. 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 Large area of encephalomalacia within the left MCA territory compatible with chronic infarct(s), increased in size compared to the 2018 comparison. Has had PT evaluation and remains stable to be transferred to a facility when approved Likely to be [facility] She has been getting stronger day by day Fall precautions, PT/OT Continue statin Continue plavix 08/07 Continue ASA 81mg DM type 2 (diabetes mellitus, type 2) A1c 5.3 in Feb 2023 Hold home PO meds Basal/bolus insulin per protocol while in-patient BSG checks AC HS COPD IS, add flutter valve albuterol prn Start fluticasone/jacobo. inhaler daily No acute symptoms-no wheezing and no shortness of breath shortness Has been saturating normally on room air Hypertension Home losartan currently on hold given low blood pressure. May DC at discharge. Hypothyroidism Continue levothyroxine Mood disorder Continue Mirtazapine, trazodone, venlafaxine CREST syndrome Has some chronic skin lesions. Not on medications DVT Ppx: SCDs for now Will not give any pharmacologic prophylaxis due to very difficult to get any blood in case of any bleeding Continue Plavix and aspirin And increase ambulation Code status: FULL PCP: Renae Dispo: Admitted to PCU. Awaiting bed in rehab. Please note the above document was generated using voice recognition software. It may contain grammatical, syntax or spelling errors. Any formal questions or concerns about the content, text or information contained within the body of this dictation should be directly addressed to the provider for clarification Admission and Anticipated Discharge Date Admission Date: July 31, 2023 Subjective 08/13/2023 The patient was seen and examined in telemetry unit She has been complaining of some pain in the right knee area Denies any other sign 08/14/2023 The patient was seen and examined in telemetry unit She has been complaining of some pain in the right knee area without any swelling Her weakness is better Denies any other significant symptoms 08/15/2023 The patient was seen and examined in telemetry unit She has been feeling much better and the pain in the right knee area has improved Denies any other symptoms Awaiting placement Review of Systems Review of Systems: All systems reviewed and are unremarkable except as noted below Physical Exam Physical Exam: Sitting on a chair without any acute distress Constitutional: well developed, well nourished, + ill appearing and + obese Eyes: PERRL, conjunctivae normal, anicteric sclerae ENMT: external ear and nose normal, oropharynx normal Neck: trachea midline, no thyromegaly Respiratory: no respiratory distress Auscultation: lungs clear to auscultation bilaterally Cardiovascular: Rate/Rhythm: regular rate and regular rhythm; not tachycardic Heart Sounds: normal S1 and normal S2; no murmur Extremities: + edema (Trace edema bilaterally) Gastrointestinal (Abdomen): Inspection/Auscultation: normal bowel sounds; abdomen not distended Percussion/Palpation: abdomen soft; abdomen nontender Musculoskeletal: Right knee movement is not painful but noted to have tenderness over the right knee adjoining areas Neurologic: normal touch/pain/proprioception and moves all extremities; no focal motor deficits Lymphatic: no cervical or axillary lymphadenopathy Results & Data Results & Data Vital Signs (Past 12 Hours) Vital Signs Temp Pulse Pulse Resp BP Pulse Ox O2 Del Method 08/14/23 11:32 36.7 C 90 16 131/58 L 95 Room Air 08/14/23 08:02 36.5 C 86 18 157/98 H 96 Room Air 08/14/23 08:00 83 08/14/23 08:00 Room Air 08/14/23 04:25 36.5 C 82 17 105/44 L 94 Room Air Laboratory Results Short CBC 08/15/23 Range/Units 06:18 WBC 5.24 (4.8-10.8) K/ul Hgb 8.1 L (12.0-16.0) g/dl Hct 26.2 L (37.0-47.0) % Plt Count 296 (130-400) K/uL BMP 08/15/23 06:18 Sodium 139 Potassium 4.2 Chloride 106 Carbon Dioxide 29 BUN 26 H Creatinine 0.73 Glucose 149 H Calcium 8.9 Medications Administered Current Inpatient Medications Acetaminophen (Acetaminophen 325 Mg Tab) 650 mg PO Q4H PRN PRN Reason: Pain or Fever Stop: 08/30/23 16:04 Aspirin (Aspirin 81 Mg Ectab) [facility] Stop: 09/10/23 08:59 Last Admin: 08/15/23 08:48 Dose: 81 mg Atorvastatin Calcium (Atorvastatin 40 Mg Tab) 80 mg PO HS [facility] Stop: 08/30/23 20:59 Last Admin: 08/14/23 20:04 Dose: 80 mg Bisacodyl (Bisacodyl 5 Mg Tabec) 5 mg PO HS PRN PRN Reason: Constipation Stop: 08/30/23 16:04 Clopidogrel Bisulfate (Clopidogrel Bisulfate 75 Mg Tab) 75 mg PO [facility] Stop: 08/31/23 08:59 Last Admin: 08/15/23 08:48 Dose: 75 mg Cyanocobalamin (Cyanocobalamin (B-12) 500 Mcg Tablet) 1,000 mcg PO [facility] Stop: 09/07/23 08:59 Last Admin: 08/15/23 08:47 Dose: 1,000 mcg Dextrose (Dextrose 50% 50 Ml Syringe) 25 - 50 ml IV UD PRN; Protocol PRN Reason: Hypoglycemia Protocol Stop: 08/30/23 16:04 Diclofenac Sodium (Diclofenac Sod 1% Gel 100 Gm Tube) 2 gm EXT TID [facility]; Protocol Stop: 09/13/23 13:59 Last Admin: 08/15/23 08:49 Dose: 2 gm Docusate Calcium (Docusate Calcium 240 Mg Capsule) 240 mg PO DAILY [facility] Stop: 09/05/23 11:29 Last Admin: 08/15/23 08:48 Dose: 240 mg Donepezil HCl (Donepezil Hcl 10 Mg Tab) 10 mg PO HS [facility] Stop: 08/30/23 20:59 Last Admin: 08/14/23 20:03 Dose: 10 mg Doxycycline Hyclate (Doxycycline Hyclate 100 Mg Cap) 100 mg PO BID [facility] Stop: 08/18/23 08:59 Last Admin: 08/15/23 08:48 Dose: 100 mg Ezetimibe (Ezetimibe 10 Mg Tab) 10 mg PO QAM [facility] Stop: 08/31/23 08:59 Last Admin: 08/15/23 08:48 Dose: 10 mg Fluticasone Propionate (Fluticasone Propionate Na Spr 16 Gm Btl) 2 sprays CHERIE DAILY [facility] Stop: 08/31/23 08:59 Last Admin: 08/15/23 08:49 Dose: 2 sprays Fluticasone/Vilanterol (Fluticasone/Vilanterol 100/25mcg 14 Puffs/Inhaler) 1 puffs INH DAILY [facility] Stop: 09/06/23 14:29 Last Admin: 08/15/23 08:50 Dose: 1 puffs Folic Acid (Folic Acid 1 Mg Tab) 1 mg PO QAM [facility] Stop: 08/31/23 10:44 Last Admin: 08/15/23 08:48 Dose: 1 mg Gabapentin (Gabapentin 300 Mg Cap) 300 mg PO BID [facility] Stop: 08/30/23 20:59 Last Admin: 08/15/23 08:48 Dose: 300 mg Glucagon (Glucagon For Inj 1 Mg Vial) 1 mg SQ UD PRN; Protocol PRN Reason: Hypoglycemia Protocol Stop: 08/30/23 16:04 Glucose (Glucose 10 Tab/Tube) 4 - 8 tab PO UD PRN; Protocol PRN Reason: Hypoglycemia Treatment Stop: 08/30/23 16:04 Glucose (Glucose 40% Gel 15 Gm Tube) 15 - 30 gm PO UD PRN; Protocol PRN Reason: Hypoglycemia Protocol Stop: 08/30/23 16:04 Insulin Aspart (Insulin Aspart Per Unit Charge) 0 units SC ACHS [facility] Stop: 08/30/23 16:29 Last Admin: 08/15/23 12:07 Dose: 8 units Insulin Glargine (Lantus Per Unit Charge) 0 - 12 units SQ BID [facility] Stop: 08/30/23 20:59 Last Admin: 08/15/23 08:53 Dose: 8 units Levothyroxine Sodium (Levothyroxine Sodium 50 Mcg Tablet) 50 mcg PO DAILYBB [facility] Stop: 08/31/23 06:29 Last Admin: 08/15/23 06:01 Dose: 50 mcg Loratadine (Loratadine 10 Mg Tab) 10 mg PO HS PRN PRN Reason: allergies Stop: 08/30/23 16:04 Mirtazapine (Mirtazapine Tab 15 Mg Tab) 30 mg PO HS [facility] Stop: 08/30/23 20:59 Last Admin: 08/14/23 20:03 Dose: 30 mg Miscellaneous (Carbohydrates For Hypoglycemia ) 15 - 30 gm PO UD PRN PRN Reason: Hypoglycemia Protocol Stop: 08/30/23 16:04 Last Admin: 08/10/23 16:30 Dose: 15 gm Ondansetron HCl (Ondansetron Inj 2 Mg/Ml 2 Ml Vial) 4 mg IV Q6H PRN PRN Reason: Nausea Stop: 08/30/23 16:04 Pantoprazole Sodium (Pantoprazole 40 Mg Tab) 40 mg PO BID [facility] Stop: 09/11/23 20:59 Last Admin: 08/15/23 08:48 Dose: 40 mg Polyethylene Glycol (Polyethylene (Miralax) 17 Gm Pack) 17 gm PO DAILY PRN PRN Reason: Constipation Stop: 08/30/23 16:04 Ropinirole HCl (Ropinirole Hcl 0.25 Mg Tablet) 0.5 mg PO HS [facility] Stop: 08/30/23 20:59 Last Admin: 08/14/23 20:03 Dose: 0.5 mg Trazodone HCl (Trazodone Hcl 50 Mg Tab) 50 mg PO HS PRN PRN Reason: Sleep Stop: 08/30/23 16:04 Venlafaxine HCl (Venlafaxine Hcl Xr 75 Mg Capxr) 75 mg PO QAM [facility] Stop: 08/31/23 08:59 Last Admin: 08/15/23 09:01 Dose: 75 mg
[2023-08-15] MEDS: ATORVASTATIN 40 MG TAB PO SCH (20:21)
[2023-08-15] MEDS: MIRTAZAPINE TAB 15 MG TAB PO SCH (20:21)
[2023-08-15] MEDS: rOPINIRole HCL 0.25 MG TABLET PO SCH (20:22)
[2023-08-15] MEDS: DONEPEZIL HCL 10 MG TAB PO SCH (20:23)
[2023-08-16] MEDS: LEVOTHYROXINE SODIUM 50 MCG TABLET PO SCH (05:30)
[2023-08-16 07:11] LABS: Basophils # (auto) 0.07 K/uL (0.00-0.20); Basophils % (auto) 1.2 %; Eosinophils # (auto) 0.17 K/uL (0.00-0.50); Eosinophils % (auto) 2.9 %; Hematocrit (blood only) 27.3 % (37.0-47.0); Hemoglobin 8.3 g/dl (12.0-16.0); Immature Granulocytes # (auto) 0.08 K/uL (0.01-0.20); Immature Granulocytes % (auto) 1.3 %; Lymphocytes # (auto) 1.54 K/uL (1.20-3.40); Mean Corpuscular Hgb Conc 30.4 g/dL (32.0-36.0); Mean Corpuscular Volume 101.9 fL (80.0-100.0); Mean Platelet Volume 10.9 fL (9.4-12.4); Monocytes # (auto) 0.86 K/uL (0.11-0.59); Monocytes % (auto) 14.5 %; Neutrophils # (auto) 3.21 K/uL (1.40-6.50); Neutrophils % (auto) 54.1 %; Nucleated RBC # (auto) 0.14 K/uL (0.00-0.12); Nucleated RBC % (auto) 2.4 %; Platelet Count 335 K/uL (130-400); RDW Coefficient of Variation 23.2 % (11.5-14.5); RDW Standard Deviation 87.3 fL (36.4-46.3); Red Blood Count 2.68 M/uL (4.20-5.40); White Blood Count 5.93 K/ul (4.8-10.8)
[2023-08-16 07:39] LABS: Anisocytosis Present; Hypochromasia Present; Polychromasia 1+
[2023-08-16] MEDS: FLUTICASONE PROPIONATE NA SPR 16 GM BTL NAE SCH (08:34)
[2023-08-16] MEDS: FLUTICASONE/VILANTEROL 100/25MCG 14 PUFFS/INHALER INH SCH (08:34)
[2023-08-16] MEDS: PANTOprazole 40 MG TAB PO SCH (08:35)
[2023-08-16] MEDS: DOXYCYCLINE HYCLATE 100 MG CAP PO SCH (08:35)
[2023-08-16] MEDS: DICLOFENAC SOD 1% GEL 100 GM TUBE EXT SCH (08:35)
[2023-08-16] MEDS: GABAPENTIN 300 MG CAP PO SCH (08:35)
[2023-08-16] MEDS: FOLIC ACID 1 MG TAB PO SCH (08:36)
[2023-08-16] MEDS: EZETIMIBE 10 MG TAB PO SCH (08:36)
[2023-08-16] MEDS: ASPIRIN 81 MG ECTAB PO SCH (08:36)
[2023-08-16] MEDS: VENLAFAXINE HCL XR 75 MG CAPXR PO SCH (08:36)
[2023-08-16] MEDS: DOCUSATE CALCIUM 240 MG CAPSULE PO SCH (08:37)
[2023-08-16] MEDS: CLOPIDOGREL BISULFATE 75 MG TAB PO SCH (08:37)
[2023-08-16] MEDS: CYANOCOBALAMIN (B-12) 500 MCG TABLET PO SCH (08:38)
[2023-08-16] MEDS: LANTUS PER UNIT CHARGE SQ SCH (08:42)
[2023-08-16] MEDS: INSULIN ASPART PER UNIT CHARGE SC SCH ×2 (08:42→12:08)
--- NOTE | 2023-08-16 11:31 | Hospitalist Progress Note ---
Date of Service August 16, 2023 Assessment & Plan (1) Sepsis: (2) Urinary tract infection: (3) Generalized weakness: (4) Anemia: (5) Hypertension: (6) History of CVA with residual deficit: (7) CREST syndrome: (8) Hypothyroidism: (9) PVD (peripheral vascular disease): (10) DM type 2 (diabetes mellitus, type 2): (11) Carotid stenosis: (12) Mood disorder: Plan is a 64-year-old female who has significant PMH of DM II on insulin, hx of CVA with residual aphasia/R sided weakness, carotid artery stenosis, L subclavian occlusion, HTN, HLD, COPD, Hypothyroidism, GERD, Scleroderma/CREST syn, Mood disorder, Depression with anxiety who presents to [facility] ED secondary to overall feeling weak x 2 days prior to arrival and was found to have sepsis 2/2 UTI. Sepsis 2/2 UTI, ecoli *resolved Acute urinary tract infection POA Hypotensive and tachycardic initially, improved BP to 105/77 and HR 95 after 2L NSS. WBC 13.76K, improved since admission Lactate resolved following admission MRSA swab negative, discontinue vancomycin Transitioned to ertapenem given generally poor clinical response, will reassess for any meaningful improvement Discontinue ertapenem, 08/07 Remains free from any symptoms of UTI Remains stable without any urinary symptoms, fever and or chills Acute on chronic macrocytic anemia *stable Anti-lukasz antibody Iron deficiency anemia B12 deficiency Patient admitted on 07/31 for management of sepsis. Initial labs notable for hgb lower than recent OP records, trend revealed concern for active bleed as hgb went from 7.9 to 6.2. Transfusion delayed given antivel antibody presence, which is notably very rare and finding a unit is difficult. Red Blood Cells located in [place]--2 Units of lukasz negative, rh- blood. Units of blood received on 08/04 to [place]--however, 1 unit burst while thawing; 1 unit administered Hemoglobin is stable after transfusion. Anemia workup is not not suggestive of hemolysis, DIC, myelodysplasia Smear consistent with anemia (chronic disease, nutritional deficiencies, renal disease) S/p 1 Unit lukasz negative blood, 3 days of IV iron. Hemoglobin has been stable since then at 9.4 Denies any symptoms of anemia and hemoglobin remains stable at 9.4 Hemoglobin dropped to 8.1-without any evidence of bleeding Hemoglobin did not drop any further and in fact it has been 8.3 as of 08/16/2023 [facility] Lyme IgG positive -Denies any history of lyme disease at this time, given concerns on admission will treat -Lyme IgG western positive: bands 23,39,93 positive -Received 1 week of abx thus far, will continue 2 week course of doxy BID po EOT 08/22 Continue doxycycline until 08/22/2023 GI consulted during the hospitalization; recommended EGD as outpatient. Continue on Protonix. Monitor for signs or symptoms of bleeding. 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 Large area of encephalomalacia within the left MCA territory compatible with chronic infarct(s), increased in size compared to the 2018 comparison. Has had PT evaluation and remains stable to be transferred to a facility when approved [facility] She will continue to have physical therapy in the facility Fall precautions, PT/OT Continue statin Continue plavix 08/07 Continue ASA 81mg DM type 2 (diabetes mellitus, type 2) A1c 5.3 in Feb 2023 Hold home PO meds Basal/bolus insulin per protocol while in-patient BSG checks AC HS COPD IS, add flutter valve albuterol prn Start fluticasone/jacobo. inhaler daily No acute symptoms-no wheezing and no shortness of breath shortness Has been saturating normally on room air Hypertension Home losartan currently on hold given low blood pressure. May DC at discharge. Hypothyroidism Continue levothyroxine Mood disorder Continue Mirtazapine, trazodone, venlafaxine CREST syndrome Has some chronic skin lesions. Not on medications DVT Ppx: SCDs for now Will not give any pharmacologic prophylaxis due to very difficult to get any blood in case of any bleeding Continue Plavix and aspirin And increase ambulation Code status: FULL PCP: Renae Dispo: Admitted to PCU. [facility] Please note the above document was generated using voice recognition software. It may contain grammatical, syntax or spelling errors. Any formal questions or concerns about the content, text or information contained within the body of this dictation should be directly addressed to the provider for clarification Admission and Anticipated Discharge Date Admission Date: July 31, 2023 Subjective 08/13/2023 The patient was seen and examined in telemetry unit She has been complaining of some pain in the right knee area Denies any other sign 08/14/2023 The patient was seen and examined in telemetry unit She has been complaining of some pain in the right knee area without any swelling Her weakness is better Denies any other significant symptoms 08/15/2023 The patient was seen and examined in telemetry unit She has been feeling much better and the pain in the right knee area has improved Denies any other symptoms Awaiting placement 08/16/2023 The patient was seen and examined in the telemetry unit She has been stable and denies any significant symptoms Her pain in the right knee area is almost resolved Denies any chest pain, shortness of breath or palpitation [facility] Review of Systems Review of Systems: All systems reviewed and are unremarkable except as noted below Physical Exam Physical Exam: Sitting on a chair without any acute distress Constitutional: well developed, well nourished, + ill appearing and + obese Eyes: PERRL, conjunctivae normal, anicteric sclerae ENMT: external ear and nose normal, oropharynx normal Neck: trachea midline, no thyromegaly Respiratory: no respiratory distress Auscultation: lungs clear to auscultation bilaterally Cardiovascular: Rate/Rhythm: regular rate and regular rhythm; not tachycardic Heart Sounds: normal S1 and normal S2; no murmur Extremities: + edema (Trace edema bilaterally) Gastrointestinal (Abdomen): Inspection/Auscultation: normal bowel sounds; abdomen not distended Percussion/Palpation: abdomen soft; abdomen nontender Musculoskeletal: No acute arthritis involving any of the joint Neurologic: normal touch/pain/proprioception and moves all extremities; no focal motor deficits Lymphatic: no cervical or axillary lymphadenopathy Results & Data Results & Data Vital Signs (Past 12 Hours) Vital Signs Temp Pulse Pulse Resp BP Pulse Ox O2 Del Method 08/16/23 11:09 36.6 C 96 H 20 133/68 97 Room Air 08/16/23 10:16 Room Air 08/16/23 08:00 83 08/16/23 07:34 36.5 C 51 L 18 130/74 95 Room Air 08/16/23 02:53 36.6 C 87 18 130/70 95 Room Air Laboratory Results Short CBC 08/16/23 Range/Units 06:38 WBC 5.93 (4.8-10.8) K/ul Hgb 8.3 L (12.0-16.0) g/dl Hct 27.3 L (37.0-47.0) % Plt Count 335 (130-400) K/uL Medications Administered Current Inpatient Medications Acetaminophen (Acetaminophen 325 Mg Tab) 650 mg PO Q4H PRN PRN Reason: Pain or Fever Stop: 08/30/23 16:04 Aspirin (Aspirin 81 Mg Ectab) 81 mg PO [facility] Stop: 09/10/23 08:59 Last Admin: 08/16/23 08:36 Dose: 81 mg Atorvastatin Calcium (Atorvastatin 40 Mg Tab) 80 mg PO HS [facility] Stop: 08/30/23 20:59 Last Admin: 08/15/23 20:21 Dose: 80 mg Bisacodyl (Bisacodyl 5 Mg Tabec) 5 mg PO HS PRN PRN Reason: Constipation Stop: 08/30/23 16:04 Clopidogrel Bisulfate (Clopidogrel Bisulfate 75 Mg Tab) 75 mg PO [facility] Stop: 08/31/23 08:59 Last Admin: 08/16/23 08:37 Dose: 75 mg Cyanocobalamin (Cyanocobalamin (B-12) 500 Mcg Tablet) 1,000 mcg PO [facility] Stop: 09/07/23 08:59 Last Admin: 08/16/23 08:38 Dose: 1,000 mcg Dextrose (Dextrose 50% 50 Ml Syringe) 25 - 50 ml IV UD PRN; Protocol PRN Reason: Hypoglycemia Protocol Stop: 08/30/23 16:04 Diclofenac Sodium (Diclofenac Sod 1% Gel 100 Gm Tube) 2 gm EXT TID [facility]; Protocol Stop: 09/13/23 13:59 Last Admin: 08/16/23 08:35 Dose: 2 gm Docusate Calcium (Docusate Calcium 240 Mg Capsule) 240 mg PO DAILY [facility] Stop: 09/05/23 11:29 Last Admin: 08/16/23 08:37 Dose: 240 mg Donepezil HCl (Donepezil Hcl 10 Mg Tab) 10 mg PO HS [facility] Stop: 08/30/23 20:59 Last Admin: 08/15/23 20:23 Dose: 10 mg Doxycycline Hyclate (Doxycycline Hyclate 100 Mg Cap) 100 mg PO BID [facility] Stop: 08/18/23 08:59 Last Admin: 08/16/23 08:35 Dose: 100 mg Ezetimibe (Ezetimibe 10 Mg Tab) 10 mg PO QAM [facility] Stop: 08/31/23 08:59 Last Admin: 08/16/23 08:36 Dose: 10 mg Fluticasone Propionate (Fluticasone Propionate Na Spr 16 Gm Btl) 2 sprays CHERIE DAILY [facility] Stop: 08/31/23 08:59 Last Admin: 08/16/23 08:34 Dose: 2 sprays Fluticasone/Vilanterol (Fluticasone/Vilanterol 100/25mcg 14 Puffs/Inhaler) 1 puffs INH DAILY [facility] Stop: 09/06/23 14:29 Last Admin: 08/16/23 08:34 Dose: 1 puffs Folic Acid (Folic Acid 1 Mg Tab) 1 mg PO QAM [facility] Stop: 08/31/23 10:44 Last Admin: 08/16/23 08:36 Dose: 1 mg Gabapentin (Gabapentin 300 Mg Cap) 300 mg PO BID [facility] Stop: 08/30/23 20:59 Last Admin: 08/16/23 08:35 Dose: 300 mg Glucagon (Glucagon For Inj 1 Mg Vial) 1 mg SQ UD PRN; Protocol PRN Reason: Hypoglycemia Protocol Stop: 08/30/23 16:04 Glucose (Glucose 10 Tab/Tube) 4 - 8 tab PO UD PRN; Protocol PRN Reason: Hypoglycemia Treatment Stop: 08/30/23 16:04 Glucose (Glucose 40% Gel 15 Gm Tube) 15 - 30 gm PO UD PRN; Protocol PRN Reason: Hypoglycemia Protocol Stop: 08/30/23 16:04 Insulin Aspart (Insulin Aspart Per Unit Charge) 0 units SC ACHS [facility] Stop: 08/30/23 16:29 Last Admin: 08/16/23 08:42 Dose: 7 units Insulin Glargine (Lantus Per Unit Charge) 0 - 12 units SQ BID [facility] Stop: 08/30/23 20:59 Last Admin: 08/16/23 08:42 Dose: 8 units Levothyroxine Sodium (Levothyroxine Sodium 50 Mcg Tablet) 50 mcg PO DAILYBB [facility] Stop: 08/31/23 06:29 Last Admin: 08/16/23 05:30 Dose: 50 mcg Loratadine (Loratadine 10 Mg Tab) 10 mg PO HS PRN PRN Reason: allergies Stop: 08/30/23 16:04 Mirtazapine (Mirtazapine Tab 15 Mg Tab) 30 mg PO HS [facility] Stop: 08/30/23 20:59 Last Admin: 08/15/23 20:21 Dose: 30 mg Miscellaneous (Carbohydrates For Hypoglycemia ) 15 - 30 gm PO UD PRN PRN Reason: Hypoglycemia Protocol Stop: 08/30/23 16:04 Last Admin: 08/10/23 16:30 Dose: 15 gm Ondansetron HCl (Ondansetron Inj 2 Mg/Ml 2 Ml Vial) 4 mg IV Q6H PRN PRN Reason: Nausea Stop: 08/30/23 16:04 Pantoprazole Sodium (Pantoprazole 40 Mg Tab) 40 mg PO BID [facility] Stop: 09/11/23 20:59 Last Admin: 08/16/23 08:35 Dose: 40 mg Polyethylene Glycol (Polyethylene (Miralax) 17 Gm Pack) 17 gm PO DAILY PRN PRN Reason: Constipation Stop: 08/30/23 16:04 Ropinirole HCl (Ropinirole Hcl 0.25 Mg Tablet) 0.5 mg PO HS [facility] Stop: 08/30/23 20:59 Last Admin: 08/15/23 20:22 Dose: 0.5 mg Trazodone HCl (Trazodone Hcl 50 Mg Tab) 50 mg PO HS PRN PRN Reason: Sleep Stop: 08/30/23 16:04 Last Admin: 08/15/23 20:32 Dose: 50 mg Venlafaxine HCl (Venlafaxine Hcl Xr 75 Mg Capxr) 75 mg PO QAM [facility] Stop: 08/31/23 08:59 Last Admin: 08/16/23 08:36 Dose: 75 mg
--- NOTE | 2023-08-17 12:55 | Discharge Summary ---
Date of Service August 16, 2023 Admission HPI Per Admitting Provider This is a 64-year-old female who has significant PMH of DM II on insulin, hx of CVA with residual aphasia/R sided weakness, carotid artery stenosis, L subclavian occlusion, HTN, HLD, COPD, Hypothyroidism, GERD, Scleroderma/CREST syn, Mood disorder, Depression with anxiety who presents to [facility] ED secondary to overall feeling weak x 2 days prior to arrival. Since Sunday, has had difficulty moving around and has had decreased appetite. Has baseline right sided weakness but has noted more profound weakness in setting of infection. Has not noticed any dysuria but has had increased urgency. Lives alone. Denies fever, chills, lightheadedness, chest pain, palpitations, shortness of breath, abdominal pain, nausea, vomiting, constipation or diarrhea. No melena or hematochezia. Admission Exam Per Admitting Provider Physical Exam General: appears fatigued, weak; notable dysarthria--takes a minute for word finding HEENT: slight asymmetry notable with smile, right sided weakness (chronic per patient), PERRLA CV: Tachycardic, regular, no murmur RESP: poor effort, diminished breath sounds GI soft, NTND Neuro: CN II-XII otherwise intact with CNVII notable weakness/asymmetry with most notable with smile on right; community health education coordinator intact BLE, strength 5/5; right leg 3/5 strength, left leg 5/5 MSK: moving all extremities equally, no deformity, no edema Principal Diagnosis Sepsis secondary to E. coli UTI, acute on chronic microcytic anemia with Anti- lukasz antibody, Lyme disease-positive IgG, weakness with history of CVA with right hemiparesis and dysarthria, type 2 diabetes Discharge Exam Sitting on a chair without any acute distress Constitutional well developed, well nourished, + ill appearing and + obese Eyes PERRL, conjunctivae normal, anicteric sclerae ENMT external ear and nose normal, oropharynx normal Neck trachea midline, no thyromegaly Respiratory no respiratory distress Auscultation: lungs clear to auscultation bilaterally Cardiovascular Rate/Rhythm: regular rate and regular rhythm; not tachycardic Heart Sounds: normal S1 and normal S2; no murmur Extremities: + edema (Trace edema bilaterally) Gastrointestinal (Abdomen) Inspection/Auscultation: normal bowel sounds; abdomen not distended Percussion/Palpation: abdomen soft; abdomen nontender Neurologic normal touch/pain/proprioception and moves all extremities; no focal motor deficits Lymphatic no cervical or axillary lymphadenopathy Discharge Data Allergies Allergy/AdvReac Type Severity Reaction Status Date / Time clarithromycin AdvReac Unknown FEEL WEIRD Verified 07/31/23 11:30 Consultations 07/31/23 12:54 ED Decision to Admit Stat 07/31/23 21:29 Consult Gastroenterology Routine 08/01/23 10:55 Consult Hematology Routine Ordered Studies 07/31/23 13:[address] [CT head/brain wo con] Routine 08/02/23 10:20 CTA abdomen pelvis w con [CT angio abdomen pelvis w con] Urgent CTA chest w con [CT angio chest w con] Urgent Hospital Course (1) Sepsis: (2) Urinary tract infection: (3) Generalized weakness: (4) Anemia: (5) Hypertension: (6) History of CVA with residual deficit: (7) CREST syndrome: (8) Hypothyroidism: (9) PVD (peripheral vascular disease): (10) DM type 2 (diabetes mellitus, type 2): (11) Carotid stenosis: (12) Mood disorder: Plan is a 64-year-old female who has significant PMH of DM II on insulin, hx of CVA with residual aphasia/R sided weakness, carotid artery stenosis, L subclavian occlusion, HTN, HLD, COPD, Hypothyroidism, GERD, Scleroderma/CREST syn, Mood disorder, Depression with anxiety who presents to [facility] ED secondary to overall feeling weak x 2 days prior to arrival and was found to have sepsis 2/2 UTI. Sepsis 2/2 UTI, ecoli *resolved Acute urinary tract infection POA Hypotensive and tachycardic initially, improved BP to 105/77 and HR 95 after 2L NSS. WBC 13.76K, improved since admission Lactate resolved following admission MRSA swab negative, discontinue vancomycin Transitioned to ertapenem given generally poor clinical response, will reassess for any meaningful improvement Discontinue ertapenem, 08/07 Remains free from any symptoms of UTI Remains stable without any urinary symptoms, fever and or chills Acute on chronic macrocytic anemia *stable Anti-lukasz antibody Iron deficiency anemia B12 deficiency Patient admitted on 07/31 for management of sepsis. Initial labs notable for hgb lower than recent OP records, trend revealed concern for active bleed as hgb went from 7.9 to 6.2. Transfusion delayed given antivel antibody presence, which is notably very rare and finding a unit is difficult. Red Blood Cells located in [place]--2 Units of lukasz negative, rh- blood. Units of blood received on 08/04 to [place]--however, 1 unit burst while thawing; 1 unit administered Hemoglobin is stable after transfusion. Anemia workup is not not suggestive of hemolysis, DIC, myelodysplasia Smear consistent with anemia (chronic disease, nutritional deficiencies, renal disease) S/p 1 Unit lukasz negative blood, 3 days of IV iron. Hemoglobin has been stable since then at 9.4 Denies any symptoms of anemia and hemoglobin remains stable at 9.4 Hemoglobin dropped to 8.1-without any evidence of bleeding Hemoglobin did not drop any further and in fact it has been 8.3 as of 08/16/2023 She will be discharged to [facility] this afternoon Lyme IgG positive -Denies any history of lyme disease at this time, given concerns on admission will treat -Lyme IgG western positive: bands 23,39,93 positive -Received 1 week of abx thus far, will continue 2 week course of doxy BID po EOT 08/22 Continue doxycycline until 08/22/2023 GI consulted during the hospitalization; recommended EGD as outpatient. Continue on Protonix. Monitor for signs or symptoms of bleeding. 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 Large area of encephalomalacia within the left MCA territory compatible with chronic i nfarct(s), increased in size compared to the 2018 comparison. Has had PT evaluation and remains stable to be transferred to a facility when approved Likely to be discharged to [facility] tomorrow She will continue to have physical therapy in the facility Fall precautions, PT/OT Continue statin Continue plavix 08/07 Continue ASA 81mg DM type 2 (diabetes mellitus, type 2) A1c 5.3 in Feb 2023 Hold home PO meds Basal/bolus insulin per protocol while in-patient BSG checks AC HS COPD IS, add flutter valve albuterol prn Start fluticasone/jacobo. inhaler daily No acute symptoms-no wheezing and no shortness of breath shortness Has been saturating normally on room air Hypertension Home losartan currently on hold given low blood pressure. May DC at discharge. Hypothyroidism Continue levothyroxine Mood disorder Continue Mirtazapine, trazodone, venlafaxine CREST syndrome Has some chronic skin lesions. Not on medications DVT Ppx: SCDs for now Will not give any pharmacologic prophylaxis due to very difficult to get any blood in case of any bleeding Continue Plavix and aspirin And increase ambulation Code status: FULL PCP: Renae Dispo: Admitted to PCU. Has been accepted to [facility] and will be discharged this afternoon Please note the above document was generated using voice recognition software. It may contain grammatical, syntax or spelling errors. Any formal questions or concerns about the content, text or information contained within the body of this dictation should be directly addressed to the provider for clarification Total Time Total Time Spent Total Time Spent (In Minutes): 40 minutes Discharge Plan Discharge Items Patient Disposition: Transfer Inpatient Rehab Fac Reason For Visit: SEPSIS 2/2 UTI Discharge Diagnosis: Sepsis secondary to E. coli UTI, acute on chronic microcytic anemia with Anti- lukasz antibody, Lyme disease-positive IgG, weakness with history of CVA with right hemiparesis and dysarthria, type 2 diabetes Condition on Discharge: Fair Activity: Resume your previous activity Activity Comment: Will need to continue PT and OT Non-emergency contact: Primary Care Provider Call non-emergency contact if: you have any medication questions and your symptoms worsen Follow-up/Referrals: Oseas Macdonald MD [Primary Care Provider] - (Please make an appointment with your PCP within 7 days following discharge from the facility) Diet: Carb Consistent or DM2 Diet Texture: Dental soft (bite-sized) Addtl Attending Provider Instructions: Please take extreme precaution to avoid falls Please take your medications as advised Please let your doctor/healthcare provider know that you have a rare antibody which might restrict you getting any blood transfusion if you need it Pending Studies at Discharge: No Stand-Alone Forms: My [facility] Skilled Items Patient informed of condition?: Yes DNR: No Discharge Level of Care: Acute rehab Communicable Disease: No Discharge Prognosis: Stable Lines: None Urinary Catheter: No Medications and DC Order Prescriptions: New doxycycline hyclate 100 mg Capsule 100 mg PO BID Qty: 12 0RF cyanocobalamin (vitamin B-12) 500 mcg Tablet 1,000 mcg PO QAM Qty: 30 0RF diclofenac sodium [Voltaren Arthritis Pain] 1 % Gel 2 g EXT TID Qty: 50 0RF folic acid 1 mg Tablet 1 mg PO QAM Qty: 3 0RF Continued insulin glargine [Basaglar KwikPen U-100 Insulin] 100 unit/mL (3 mL) insulin pen 24 unit subcut QAM Rx Instructions: Take 1 unit away for the following day if sugar is under 100 atorvastatin 80 mg Tablet 80 mg PO HS venlafaxine 75 mg Tablet 75 mg PO QAM trazodone 50 mg Tablet 50 mg PO HS PRN (Reason: Pain) docusate calcium [Stool Softener (docusate geronimo)] 240 mg Capsule 240 mg PO DAILY PRN (Reason: Constipation) donepezil 10 mg Tablet 10 mg PO HS mirtazapine 30 mg Tablet 30 mg PO HS ferrous sulfate 325 mg (65 mg iron) Tablet 650 mg PO QAM ropinirole 0.5 mg Tablet 0.5 mg PO HS bisacodyl [Dulcolax (bisacodyl)] 5 mg Tablet,Delayed Release (Dr/Ec) 5 mg PO HS PRN (Reason: Constipation) metformin 500 mg Tablet Extended Release 24 Hr 1,000 mg PO BID loratadine [Claritin] 10 mg Tablet 10 mg PO HS PRN (Reason: allergies) ezetimibe 10 mg Tablet 10 mg PO QAM clopidogrel [Plavix] 75 mg Tablet 75 mg PO QAM pantoprazole 40 mg tablet,delayed release (DR/EC) 40 mg PO QAM gabapentin 300 mg capsule 300 mg PO BID fluticasone propionate 50 mcg/actuation spray,suspension 2 spray INTRANASAL DAILY Trulicity 0.75 mg/0.5 mL pen injector 0.75 mg SUBCUT WK levothyroxine 50 mcg Tablet 50 mcg PO DAILY aspirin 81 mg Capsule 81 mg PO DAILY Discontinued losartan 25 mg Tablet 12.5 mg PO QAM Discharge Orders: Discharge Order (Routine); Ordered 08/16/23 Ordered By: Don Baig Admission Data Admit Date/Time: 07/31/23 13:05 Attending Provider: Don Baig Admit Provider: Gila Ruiz Primary Care Provider: Oseas Macdonald Other Providers: Gila Ruiz; Castro Campos Jr; Pat Yo; [facility]; [facility]; Eze Anderson
== END 2023-08-16 13:00 | DRG 871 ==
LOC: EDSEX → ED 09:37 → EDINP 13:05 → SUATTDRO 13:05 → 2S 16:05

== ENCOUNTER 2023-08-29 08:28 | Inpatient (IN) ==
[2023-08-29] MEDS: SODIUM CHLORIDE 0.9% 1,000 ML IV ONE (09:44)
--- NOTE | 2023-08-29 09:56 | Emergency Department Note ---
Impression & Plan Macrocytic anemia, Generalized weakness, DM type 2 (diabetes mellitus, type 2), History of CVA with residual deficit ED Provider Note NAME: MAURISIO GIBSON AGE: 68 SEX: F ARRIVES VIA: Walk-In INFORMANT: Patient ED PROVIDER(S): Benny Sanchez MD CHIEF COMPLAINT: Weakness PLAN: Disposition: Admit MEDICAL DECISION MAKING: The patient is a pleasant 68-year-old woman with a past medical history of CVA, mood disorder, crest, PVD, macrocytic anemia, iron deficiency, Anti-lukasz antibody, who presents to the emergency department via walk-in for evaluation of generalized weakness which has been worsening since her discharge from [facility] following admission to this facility from 07/31-08/16 for sepsis related to UTI. During the patient's admission she was also noted to be severely anemic attributed to history of macrocytic anemia with iron deficiency and B12 deficiency. She did receive 1 unit of PRBCs and iron infusion for 3 days. Her Lyme screen was positive and Western blot was also positive for IgG G antibody. She was to complete a 2-week course of doxycycline. Patient denies any cough, congestion, fevers, chills, GI or symptoms. Patient reports that she has had black stools since taking iron. She understands that her stool did test positive for blood before leaving [facility]. On my evaluation the patient is chronically ill-appearing, fatigued but no acute distress, afebrile with stable vital signs. She appears clinically dry. She has mild pallor. Abdomen is nontender. EKG without overt acute ischemia. CXR negative for acute cardiopulmonary process per my personal preliminary review/interpretation. WBC within normal limits. Platelets within normal limits. H/H 7.5/24.6 decreased from discharge value of 8 on 08/16. Chemistry without metabolic acidosis. BUN is not significantly elevated. Iron is normal today at 86. LFTs are unremarkable. High-sensitivity troponin 6.0, within normal limits. Procalcitonin is not elevated. TSH within normal limits respiratory BioFire was negative. CT ab pelvis was performed and demonstrates bladder wall thickening that is unchanged. Moderate fecal retention is noted. Stable upper abdominal lymphadenopathy is again described as is mild hepatic steatosis and distended gallbladder with no gallbladder wall thickening. UA without convincing evidence of infection. I was able to review the patient's presentation with her stepdaughter over the phone who was concerned about her weakness and the fact that she lives alone HEAD: Normocephalic, no signs of injury or scalp lesions. Is a fall risk at baseline and worries this could be further worsened by her current state of health/weakness. Thus, given the patient's history with worsening generalized weakness in setting of anemia and baseline amatory dysfunction patient referred to hospital service for further management. Case was discussed with Marline Ireland PAC with [facility], who will evaluate the patient for admission. Further management per admitting team. Triage Nursing notes reviewed and agree them. Prior/external medical records reviewed Vital Signs: reviewed Differential diagnosis: Infection, dehydration, metabolic abnormality, hypo/hyperglycemia, electrolyte disturbance, anemia, hypoxia, cardiac sources, intracerebral event, toxicologic, neurologic, as well as other pathologies. ER treatment provided: See below. Diagnostics interpreted by me: ECG: Normal sinus rhythm, 91 bpm, no ectopy, no overt ST elevation or depression, QTc 474, QRS 62. Baseline artifact is present Cardiac Monitoring: An order for continuous cardiac monitoring was placed and demonstrated Normal sinus rhythm, 91 bpm, no ectopy. Laboratory studies: See below Imaging studies: See below Consultation(s): Marline Ireland PAC with [facility] hospitalist HPI: The patient is a pleasant 68-year-old woman with a past medical history of CVA, mood disorder, crest, PVD, who presents emergency department via walk-in for evaluation of generalized weakness which has been worsening since her discharge from [facility] following admission to this facility from 07/31- 08/16 for sepsis related to UTI. During the patient's admission she was also noted to be severely anemic attributed to history of macrocytic anemia with iron deficiency and B12 deficiency. She did receive 1 unit of PRBCs and iron infusion for 3 days. Her Lyme screen was positive and Western blot was also positive for IgG G antibody. She was to complete a 2-week course of doxycycline. Patient denies any cough, congestion, fevers, chills, GI or symptoms. ROS: See above HPI for pertinent positives & negatives. A total of 10 systems reviewed and were otherwise negative. VITALS:See Below PHYSICAL EXAMINATION: GENERAL: Awake, alert, chronically ill-appearing, in no distress HENT: Normocephalic, atraumatic. Oropharynx with dry mucous membranes and otherwise unremarkable. EYES: Normal conjunctiva. Sclera non-icteric. NECK: Supple. No nuchal rigidity. FROM. No JVD. RESPIRATORY: Clear to auscultation. CARDIAC: Regular rate, normal rhythm. Extremities warm and well perfused. Pulses equal. ABDOMEN: Soft, non-distended. No tenderness to palpation. No rebound or guarding. No masses. RECTAL: Deferred. MUSCULOSKELETAL: Chest examination reveals no tenderness. The back is symmetrical on inspection without obvious abnormality. There is no CVA tenderness to palpation. No joint edema. LOWER EXTREMITIES: Calves are equal size bilaterally and non-tender. No edema. No discoloration. NEURO: Mild aphasia and right upper and lower extremity weakness. At patient's baseline in the setting of history of CVA. SKIN: Mild pallor. No rash or jaundice noted. Benny Sanchez MD Past Med/Surg History Medical History Generalized weakness Generalized weakness Restless leg syndrome Hypertension Vascular disease Mood disorder History of CVA with residual deficit approx 7 yrs > H/o L MCA stroke during attempted L SCA stenting. Has residual dysphagia Gastroparesis Esophagitis Carotid stenosis Right carotid artery 70 to 90% stenosis of internal carotid, left carotid artery 50 to 69% Hyperlipidemia DJD (degenerative joint disease), lumbar DM type 2 (diabetes mellitus, type 2) IDDM Hypothyroidism PVD (peripheral vascular disease) CREST syndrome Anemia Surgical History History of cataract surgery left History of tooth extraction Hx of esophagogastroduodenoscopy Hx of colonoscopy H/O foot surgery right History of hysterectomy History of spinal fusion lumbar S/P appendectomy (10/11/12) Family History Mother Breast cancer Uterine cancer Father Lung cancer Emphysema/COPD Social History Smoking Status: Never smoker Second Hand Exposure: No; Do You Dip or Chew Tobacco: No; Hx Alcohol Use: No Hx Substance Use: No Preferred Language: Cuban Communication Ability: Effective Insurance And Benefits Clerk Required: No Beliefs That Will Affect Care: None marital status: Single Current Living Situation: Alone and Other Current Living Situation Comment: has caregivers How many Children do You have: 1 Other Information That Helps Us Care for You: No Feels Safe at Home: Yes Safety Concerns: Feels Safe At This Time Assistive Devices: Walker Allergies Allergies Allergy/AdvReac Type Severity Reaction Status Date / Time clarithromycin AdvReac Unknown FEEL WEIRD Verified 08/23/23 14:29 Home Meds Home Medications Medication Instructions Recorded Confirmed atorvastatin 80 mg tablet 80 mg PO HS 07/14/18 08/29/23 bisacodyl 5 mg tablet,delayed 5 mg PO HS PRN Constipation 07/14/18 08/29/23 release (Dulcolax (bisacodyl)) docusate calcium 240 mg capsule 240 mg PO DAILY PRN Constipation 07/14/18 08/29/23 (Stool Softener (docusate calcium)) donepezil 10 mg tablet 10 mg PO HS 07/14/18 08/29/23 ezetimibe 10 mg tablet 10 mg PO QAM 07/14/18 08/29/23 ferrous sulfate 325 mg (65 mg 650 mg PO QAM 07/14/18 08/29/23 iron) tablet loratadine 10 mg tablet (Claritin) 10 mg PO HS PRN allergies 07/14/18 08/29/23 metformin 500 mg tablet,extended 1,000 mg PO BID 07/14/18 08/29/23 release 24 hr mirtazapine 30 mg tablet 30 mg PO HS 07/14/18 08/29/23 ropinirole 0.5 mg tablet 0.5 mg PO HS 07/14/18 08/29/23 trazodone 50 mg tablet 50 mg PO HS PRN Pain 07/14/18 08/29/23 venlafaxine 75 mg tablet 75 mg PO QAM 07/14/18 08/29/23 insulin glargine 100 unit/mL (3 24 unit subcut QAM 05/12/19 08/29/23 mL) subcutaneous pen (Basaglar KwikPen U-100 Insulin) clopidogrel 75 mg tablet (Plavix) 75 mg PO QAM 08/25/19 08/29/23 aspirin 81 mg capsule 81 mg PO DAILY 07/31/23 08/29/23 dulaglutide 0.75 mg/0.5 mL 0.75 mg subcut WK 07/31/23 08/29/23 subcutaneous pen injector ([facility]) fluticasone propionate 50 2 spray intranasal DAILY 07/31/23 08/29/23 mcg/actuation nasal spray,suspension gabapentin 300 mg capsule 300 mg PO BID 07/31/23 08/29/23 levothyroxine 50 mcg tablet 50 mcg PO DAILY 07/31/23 08/29/23 pantoprazole 40 mg tablet,delayed 40 mg PO QAM 07/31/23 08/29/23 release Previous Rx's Medication Instructions Recorded cyanocobalamin (vitamin B-12) 500 1,000 mcg (2 x 500 mcg) PO QAM #30 08/16/23 mcg tablet tabs diclofenac sodium 1 % topical gel 2 g EXT TID #50 grams 08/16/23 (Voltaren Arthritis Pain) folic acid 1 mg tablet 1 mg PO QAM #3 tabs 08/16/23 Results & Data (ED) Vital Signs Vital Signs - 24 hr 08/29/23 08:28 08/29/23 08:32 08/29/23 08:49 Temperature 36.6 C Temperature Source Temporal Artery Scan Pulse Rate 103 H Pulse Rate [Apical] Respiratory Rate 18 Respiratory Effort / Characteristics Respiratory Depth Normal Respiratory Pattern Blood Pressure 126/90 Blood Pressure [Right Arm] Blood Pressure Mean 102 Blood Pressure Mean [Right Arm] Blood Pressure Position Sitting Blood Pressure Position [Right Arm] Pulse Oximetry 98 95 98 Oxygen Delivery Method Room Air Room Air Room Air Sepsis Recent Fever Within 48 Hours No Sepsis New/Unexplained Change in Mental Status No Sepsis Action Taken by Nursing No Action Required 08/29/23 09:21 08/29/23 10:55 08/29/23 10:55 Temperature Temperature Source Pulse Rate 92 H Pulse Rate [Apical] 89 Respiratory Rate 16 Respiratory Effort / Characteristics Non-Labored Spontaneous Respiratory Depth Normal Respiratory Pattern Regular Blood Pressure Blood Pressure [Right Arm] 129/58 L Blood Pressure Mean Blood Pressure Mean [Right Arm] 81 Blood Pressure Position Blood Pressure Position [Right Arm] Pulse Oximetry 99 100 Oxygen Delivery Method Room Air Room Air Sepsis Recent Fever Within 48 Hours Sepsis New/Unexplained Change in Mental Status Sepsis Action Taken by Nursing 08/29/23 14:00 08/29/23 15:30 08/29/23 16:01 Temperature Temperature Source Pulse Rate 89 87 Pulse Rate [Apical] 96 H Respiratory Rate 16 19 19 Respiratory Effort / Characteristics Non-Labored Spontaneous Respiratory Depth Normal Respiratory Pattern Regular Blood Pressure 142/88 H 129/67 Blood Pressure [Right Arm] 102/57 L Blood Pressure Mean 106 87 Blood Pressure Mean [Right Arm] 72 Blood Pressure Position Blood Pressure Position [Right Arm] Sitting Pulse Oximetry 98 97 98 Oxygen Delivery Method Room Air Room Air Room Air Sepsis Recent Fever Within 48 Hours Sepsis New/Unexplained Change in Mental Status Sepsis Action Taken by Nursing 08/29/23 16:31 Temperature Temperature Source Pulse Rate 89 Pulse Rate [Apical] Respiratory Rate 17 Respiratory Effort / Characteristics Respiratory Depth Respiratory Pattern Blood Pressure 163/62 H Blood Pressure [Right Arm] Blood Pressure Mean 95 Blood Pressure Mean [Right Arm] Blood Pressure Position Blood Pressure Position [Right Arm] Pulse Oximetry 97 Oxygen Delivery Method Room Air Sepsis Recent Fever Within 48 Hours Sepsis New/Unexplained Change in Mental Status Sepsis Action Taken by Nursing Laboratory Data Attestation: I reviewed the patient's lab results. 08/29/23 19:39 08/29/23 09:20 Lab Results 08/29/23 08/29/23 Range/Units 09:20 09:51 WBC 6.83 (4.8-10.8) K/ul RBC 2.39 L (4.20-5.40) M/uL Hgb 7.5 L (12.0-16.0) g/dl Hct 24.6 L (37.0-47.0) % MCV 102.9 H (80.0-100.0) fL MCH 31.4 (25.0-34.0) pg MCHC 30.5 L (32.0-36.0) g/dL RDW Std Deviation 87.5 H (36.4-46.3) fL RDW Coeff of Jj 23.4 H (11.5-14.5) % Plt Count 284 (130-400) K/uL MPV 10.5 (9.4-12.4) fL Immature Gran % (Auto) 0.9 % Neut % (Auto) 67.3 % Lymph % (Auto) 20.5 % Moca % (Auto) 10.0 % Eos % (Auto) 0.9 % Baso % (Auto) 0.4 % Reticulocyte % (Auto) 10.03 H (0.50-2.00) % Neut # (Auto) 4.60 (1.40-6.50) K/uL Lymph # (Auto) 1.40 (1.20-3.40) K/uL Moca # (Auto) 0.68 H (0.11-0.59) K/uL Eos # (Auto) 0.06 (0.00-0.50) K/uL Baso # (Auto) 0.03 (0.00-0.20) K/uL Reticulocyte # 0.240 H (0.020-0.100) 10^6/uL Immature Gran # (Auto) 0.06 (0.01-0.20) K/uL Absolute Nucleated RBC 0.14 H (0.00-0.12) K/uL Nucleated RBC % (auto) 2.0 % Polychromasia 1+ Anisocytosis Present Ovalocytes 1+ PT 11.8 (9.0-12.0) Seconds INR 1.1 (0.9-1.1) Sodium 135 L (136-145) mmol/L Potassium 4.3 (3.5-5.1) mmol/L Chloride 100 (98-107) mmol/L Carbon Dioxide 28 (21-32) mmol/L Anion Gap 7 (3-11) BUN 19 (6-23) mg/dl Creatinine 0.85 (0.6-1.2) mg/dl Est Cr Clr Drug Dosing Not Reportable Est GFR ( Amer) 81.6 ml/min Est GFR (Non-Af Amer) 70.4 ml/min BUN/Creatinine Ratio 22.4 H (10-20) Glucose 88 (70-99(Fasting)) mg/dl Calcium 8.7 (8.6-10.3) mg/dl Phosphorus 3.0 (2.5-4.9) mg/dl Magnesium 1.8 (1.7-2.4) mg/dl Iron 86 (35-150) mcg/dl Unsaturated IBC 199 (155-355) mcg/dl Transferrin 212 (200-360) mg/dl Ferritin 77.5 (8-388) ng/ml Total Bilirubin 0.8 (0.2-1.0) mg/dl AST 24 (13-39) U/L ALT 17 (7-52) U/L Alkaline Phosphatase 63 (34-104) U/L Total Creatine Kinase 38 (26-192) U/L Troponin I High Sens 6.0 (0-14) pg/ml Total Protein 6.6 (6.0-8.3) gm/dl Albumin 3.7 (3.4-5.0) gm/dl Globulin 2.9 (2.5-4.0) gm/dl Albumin/Globulin Ratio 1.3 (0.9-2) Lipase 22 (11-82) U/L Vitamin B12 388 (180-914) pg/ml Folate > 22.30 (>5.38) ng/ml Procalcitonin 0.06 (0-0.5) ng/ml TSH 2.318 (0.300-4.500) uIu/ml Adenovirus (PCR) Not Detected (NotDetected) B. pertussis DNA (PCR) Not Detected (NotDetected) B.parapertussis DNA PCR Not Detected (NotDetected) C. pneumoniae DNA (PCR) Not Detected (NotDetected) Coronavirus OC43 (PCR) Not Detected (NotDetected) Coronavirus HKU1 (PCR) Not Detected (NotDetected) Coronavirus 229E (PCR) Not Detected (NotDetected) SARS-CoV-2 (PCR) Not Detected (NotDetected) Coronavirus NL63 (PCR) Not Detected (NotDetected) Human Metapneumovir PCR Not Detected (NotDetected) Influenza Type A (PCR) Not Detected (NotDetected) Influenza Type B (PCR) Not Detected (NotDetected) M. pneumoniae (PCR) Not Detected (NotDetected) Parainfluenza 1 (PCR) Not Detected (NotDetected) Parainfluenza 2 (PCR) Not Detected (NotDetected) Parainfluenza 3 (PCR) Not Detected (NotDetected) Parainfluenza 4 (PCR) Not Detected (NotDetected) RSV (PCR) Not Detected (NotDetected) Entero/Rhino (PCR) Not Detected (NotDetected) Administered Medications Atorvastatin Calcium (Atorvastatin 40 Mg Tab) 80 mg PO [facility] Stop: 09/28/23 20:59 Last Admin: 08/29/23 20:27 Dose: 80 mg Documented By: LL Donepezil HCl (Donepezil Hcl 10 Mg Tab) 10 mg PO [facility] Stop: 03/15/24 20:59 Last Admin: 08/29/23 20:28 Dose: 10 mg Documented By: BALTA Gabapentin (Gabapentin 300 Mg Cap) 300 mg PO BID [facility] Stop: 09/28/23 20:59 Last Admin: 08/29/23 20:28 Dose: 300 mg Documented By: BALTA Insulin Aspart (Insulin Aspart Per Unit Charge) 0 units SC ACHS [facility] Stop: 09/28/23 20:59 Last Admin: 08/29/23 20:28 Dose: Not Given Documented By: BALTA Mirtazapine (Mirtazapine Tab 15 Mg Tab) 30 mg PO HS [facility] Stop: 09/28/23 20:59 Last Admin: 08/29/23 20:28 Dose: 30 mg Documented By: BALTA Ropinirole HCl (Ropinirole Hcl 0.25 Mg Tablet) 0.5 mg PO HS [facility] Stop: 09/28/23 20:59 Last Admin: 08/29/23 20:28 Dose: 0.5 mg Documented By: BALTA Discontinued Medications Sodium Chloride (Nss) 1,000 mls @ 999 mls/hr IV .Q1H1M ONE Stop: 08/29/23 09:50 Last Infusion: 08/29/23 10:55 Dose: Infused Documented By: Admin: 08/29/23 09:44 Dose: 999 mls/hr Documented By: MARILYNN Iron Sucrose 300 mg/ Sodium (Chloride) 265 mls @ 176.667 mls/hr IV ONE ONE Stop: 08/29/23 19:29 Last Infusion: 08/29/23 20:26 Dose: Infused Documented By: Admin: 08/29/23 18:40 Dose: 176.7 mls/hr Documented By: KEESHA Ertapenem 1,000 mg/ Syringe 10 mls @ 2 mls/min IV Q24H [facility] Stop: 08/29/23 18:04 Last Admin: 08/29/23 20:27 Dose: 2 mls/min Documented By: BALTA Ioversol (Optiray 320 500ml) 94 ml IV ONCE ONE Stop: 08/29/23 13:39 Last Admin: 08/29/23 13:39 Dose: 94 ml Documented By: PARVIN Imaging Data Radiologist's Impression: Abdomen/Pelvis CT 08/29/23 11:[address] WITH IV CONTRAST CT DOSE: 1104.54 mGy.cm HISTORY: weakness, anemia TECHNIQUE: Multiaxial CT images of the abdomen and pelvis were performed following the use of intravenous contrast. A dose lowering technique was utilized adhering to the principles of ALARA. COMPARISON STUDY: Abdomen and pelvis CT 08/02/2023. FINDINGS: Mild interstitial thickening at the lung bases. This is likely chronic. No pneumoperitoneum. No pneumatosis. Coflex device is at the L3-L4 and L4-5 levels again noted old, healed left-sided rib fractures. There is a healing right lateral ninth rib fracture, unchanged. Decrease in size in the prominent distal paraesophageal lymph nodes. The gallbladder remains mildly distended. No gallbladder wall thickening. No hepatic or splenic masses. Small bilateral adrenal gland nodules remain unchanged. Normal pancreas. The kidneys enhance normally. No hydronephrosis. The main portal vein is patent. Mild gastrohepatic lymphadenopathy remains unchanged. Dominant lymph node on image 82 measures 8 mm in short axis diameter. Mild periportal lymphadenopathy persists. Moderate calcified plaque within the ectatic abdominal aorta measuring up to 2.4 centers in diameter. No mesenteric or pelvic lymphadenopathy. Mild bladder wall thickening. Mild hepatic steatosis. No pelvic free fluid. The uterus is unremarkable. Moderate fecal retention. A few colonic diverticula. No evidence for acute diverticulitis. No bowel wall thickening or obstruction. Prior appendectomy. No retroperitoneal hematoma. IMPRESSION: 1. Mild bladder wall thickening, unchanged. Recommend correlation with urinalysis to exclude a cystitis. 2. No bowel wall thickening or obstruction. 3. Distended gallbladder, unchanged. No gallbladder wall thickening. 4. Mild hepatic steatosis. 5. No hydronephrosis. 6. Mild upper abdominal lymphadenopathy, unchanged. The prominent distal paraesophageal lymph nodes have slightly decreased in size. 7. Moderate fecal retention. ACT 112: Negative or not required by law. Electronically signed by: Israel Mccracken M.D. 08/29/2023 2:04 PM Discharge Plan Visit Data Chief Complaint: Weakness Stated Complaint: WEAKNESS ED Provider: Benny Sancehz Discharge Problem: Macrocytic anemia, Generalized weakness, DM type 2 (diabetes mellitus, type 2), History of CVA with residual deficit Patient Disposition: Admitted As Inpatient Discharge Instructions Interventions: ED Discharge Assessment Last Done: 08/29/23 17:12 Discharge Problem: DM type 2 (diabetes mellitus, type 2) Qualifiers: Diabetes mellitus senior living insulin use: unspecified terminal supervisor insulin use status Diabetes mellitus complication status: without complication Qualified Code(s): E11.9 - Type 2 diabetes mellitus without complications
[2023-08-29 09:57] LABS: Basophils # (auto) 0.03 K/uL (0.00-0.20); Basophils % (auto) 0.4 %; Eosinophils # (auto) 0.06 K/uL (0.00-0.50); Eosinophils % (auto) 0.9 %; Hematocrit (blood only) 24.6 % (37.0-47.0); Hemoglobin 7.5 g/dl (12.0-16.0); Immature Granulocytes # (auto) 0.06 K/uL (0.01-0.20); Immature Granulocytes % (auto) 0.9 %; Lymphocytes % (auto) 20.5 %; Mean Corpuscular Hemoglobin 31.4 pg (25.0-34.0); Mean Corpuscular Hgb Conc 30.5 g/dL (32.0-36.0); Mean Corpuscular Volume 102.9 fL (80.0-100.0); Mean Platelet Volume 10.5 fL (9.4-12.4); Monocytes # (auto) 0.68 K/uL (0.11-0.59); Neutrophils % (auto) 67.3 %; Nucleated RBC # (auto) 0.14 K/uL (0.00-0.12); Platelet Count 284 K/uL (130-400); RDW Coefficient of Variation 23.4 % (11.5-14.5); RDW Standard Deviation 87.5 fL (36.4-46.3); Red Blood Count 2.39 M/uL (4.20-5.40); White Blood Count 6.83 K/ul (4.8-10.8)
--- OUTSIDE RECORDS SUMMARY | 2023-08-29 10:12 | External Medical Summary | Summary of Care ---
Author Name Unknown Organization [facility] Address [address] [place] [address] Phone [phone] Care Team Providers Care Business Job Titles Name Role Phone Renae MEDINA MD, John E Primary Care Provider [phone] Reason for Visit * Reason Onset Date Comments Appointment 08/28/2023 Encounter Details Date Type Department Care Team (Late st Contact Info) Description 08/28/2023 Telephone Family Practice [facility] [address] [facility] [place] [address] Oseas Macdonald III, MD [address] [facility] [place] [address] Appointment Allergies Active Allergy Reactions Criticality Noted Date Comments Clarithromycin 05/09/2010 Confusion, "buzzing sound in head" documented as of this encounter (statuses as of 08/28/2023) Medications Medication Sig Dispensed Refills Start Date [...] 100 Cap 3 01/25/2018 Active MEDICAL INSTRUCTIONS Longterm-for monitoring of med. compliance, filling of med. [...] day E11.9 100 Strip 11 08/15/2022 Active Atorvastatin Calcium 80 MG Oral [...] hemoglobin A1c goal of less than 8.0% ([facility]) TAKE 1 TABLET BY MOUTH EVERY DAY [...] RESTLESS LEGS 90 Tablet 11 03/11/2023 Active traZODone HCl 50 MG Oral Tablet [...] WITH BREAKFAST 180 Tablet 1 04/25/2023 Active Additional Information Patient not taking.Reported on 08/27/2023 Venlafaxine HCl ER 75 MG Oral Capsule [...] PER WEEK 6 mL 2 06/06/2023 Active OneTouch Delica Plus [id number] USE DIRECTED THREE TIMES A DAY BEFORE MEALS 300 Each 3 07/30/2023 Active Folic Acid 1 MG Oral Tablet Take 1 Tablet by mouth in the morning. 0 Active Cyanocobalamin 1000 MCG Oral Tablet (Cyanocobalamin) Take 1 Tablet by mouth in the morning. 90 Tablet 3 08/27/2023 Active documented as of this encounter (statuses as of 08/28/2023) Active Problems Problem Noted Date Diagnosed Date [...] as of this encounter (statuses as of 08/28/2023) Resolved Problems Problem Noted Date Diagnosed Date [...] as of this encounter (statuses as of 08/28/2023) Immunizations Name Administration Dates Next Due COVID-19 [...] encounter Miscellaneous Notes * Telephone Encounter - Lizz Flannery OSA - 08/28/2023 3:34 PM EST Pt needs to schedule a UpperScope Associated Diagnoses Anemia, unspecified type [D64.9] Please contact pt to schedule an appointment Thank You documented in this encounter Plan of Treatment Upcoming Encounters Date Type Department Care Team (Late st Contact Info) Description 08/29/2023 10:00 AM EST Laboratory Laboratory [facility] [place] [address] [place], [place] [address] [facility] [address] [place] [address] 09/11/2023 10:40 AM EST Office Visit [facility] [address] [place] [address] Jo Flores PA-C [address] [facility] [place] [address] 10/08/2023 1:00 PM EDT Office Visit [facility] [address] [place] [address] Jo Flores PA-C [address] [facility] [place] [place] [address] 10/29/2023 11:40 AM EDT Office Visit Rheumatology [place] [address] [employer] [place] [address] Bert Osborne MD [address] [place] [address] Scheduled Procedures Name Priority Associated Diagnoses Date/Ti me COLONOSCOPY FLEXIBLE PROXIMAL DIAGNOSTIC Recall Screen for colon cancer Health Maintenance Due Date Last Done Comments Cologuard 2000 Sigmoidoscopy 2000 Hepatitis B (1 of 3 - Risk 3-dose series) 2015 Fecal Occult Blood Test 05/19/2020 05/19/20 19, 09/11/2016, 09/17/2008, Additional history exists COVID-19 Vaccine ( season) 2023 07/30/2021, 11/11/2020, 10/21/2020 Depression Screening 07/04/2023 07/04/2022 Albumin/Creatinine Ratio 10/14/2023 023, 10/11/2021, 04/25/2016, Additional history exists Diabetic Eye Exam 12/21/2023 12/20/2022, , 09/01/2020, Additional history exists Diabetic Foot Exam 02/13/2024 02/12/2023, 0 01/27/2022, 07/26/2020, Additional history exists HbA1c 02/25/2024 08/27/2023, 08/0 02/2023, 10/13/2022, Additional history exists Mammogram 07/10/2024 07/10/2023, 06/16, 07/04/2021, Additional history exists GFR 08/27/2024 08/27/2023, 02/0 03/2024, 08/17/2023, Additional history exists O2 ASSESSMENT COMPLETED IN PAST YEAR FOR COPD 08/27/2024 08/27/2023 TSH 08/27/2024 08/27/2023, 02/0 12/2023, 06/01/2023, Additional history exists DTaP,Tdap,and Td Vaccines (3 [...] 11/08/2010 LUNG CANCER SCREENING - USE SMARTSET [id number] Completed 11/16/2022, 11/10/2021, 10/20/2020, Additional history exists [...] and were consensually agreed upon. Care Teams Business Job Titles Relationship Specialty Start Date End Date Oseas Macdonald III, MD [address] [place] [address] PCP - General Family Medicine 06/04/15 documented as of this encounter
--- OUTSIDE RECORDS SUMMARY | 2023-08-29 10:12 | External Medical Summary | Summary of Care ---
Author Name Unknown Organization [facility] Address [address] [place] [address] Phone [phone] Care Team Providers Care Maitre D' Name Role Phone Renae MEDINA MD, John E Primary Care Provider [phone] Encounter Details Date Type Department Care Team (Late st Contact Info) Description 08/28/2023 Orders Only Family Practice [facility] [address] [place] [address] Oseas Macdonald III, MD 200 [facility] [place] [address] Allergies Active Allergy Reactions Criticality Noted Date [...] mL 2 06/06/2023 Active OneTouch Delica Plus [id number] USE DIRECTED THREE TIMES A DAY BEFORE [...] Description 08/29/2023 10:00 AM EST Laboratory Laboratory [facility] [address] [place] [phone] [facility] [address] [facility] [place] [address] 09/11/2023 10:40 AM EST Office Visit [facility] [place] [address] [place] [address] Jo Flores PA-C [address] [place] [address] 10/08/2023 1:00 PM EDT Office Visit Family Practice [facility] [address] [facility] [place] [address] Jo Flores PA-C [address] [place] [address] 10/29/2023 11:40 AM EDT Office Visit Rheumatology [facility] [address] [place] [address] Bert Osborne MD [address] [place] [address] Scheduled Procedures Name Priority Associated Diagnoses Date/Ti [...] 07/26/2020, Additional history exists HbA1c 02/25/2024 08/27/2023, 07/16, 02/20/2023, Additional history exists Mammogram 07/10/2024 07/10/2023, 06/16, 07/04/2021, Additional history exists GFR 08/27/2024 08/27/2023, 02/0 03/2024, 08/17/2023, Additional history exists O2 ASSESSMENT COMPLETED IN PAST YEAR FOR COPD 08/27/2024 08/27/2023 TSH 08/27/2024 08/27/2023, 0 12/2023, 06/01/2023, Additional history exists DTaP,Tdap,and Td [...] 11/08/2010 LUNG CANCER SCREENING - USE SMARTSET [id number] Completed 11/16/2022, 11/10/2021, 10/20/2020, Additional history exists [...] Procedure Name Priority Date/Time Associated Diagnosis Comments CHEMISTRY-OUTSIDE Routine 08/01/2023 documented in this encounter Results * CHEMISTRY-OUTSIDE (08/01/2023) Not all results display below - see scan for full detail OUTSIDE LAB (SEE SCANNED REPORT) Comment:[facility] BA1C CREATININE-OUTSID E LAB OUTSIDE LAB (SEE SCANNED REPORT) EGFR-OUTSIDE LAB OUT SIDE LAB (SEE SCANNED REPORT) POTASSIUM-OUTSIDE LAB OUTSIDE LAB (SEE SCANNED REPORT) GLUCOSE-OUTSIDE LAB OUTSIDE LAB (SEE SCANNED REPORT) HOURS FASTING OUTSID E LAB (SEE SCANNED REPORT) TRIGLYCERIDES-OUT SIDE LAB OUTSIDE LAB (SEE SCANNED REPORT) CHOLESTEROL-OUTSI DE LAB OUTSIDE LAB (SEE SCANNED REPORT) HDL-OUTSIDE LAB OUTS [facility] (SEE SCANNED REPORT) CHOL/HDL RATIO-OUTSIDE LAB OUTSIDE LA B (SEE SCANNED REPORT) LDL (CALCULATED)-OUTS [facility] OUTSIDE LAB (SEE SCANNED REPORT) LDL (DIRECT MEASURE)-OUTSIDE LAB OUTSIDE LAB (SEE SCANNED REPORT) HEMOGLOBIN, S2L-ZACATNQ LAB 4.9 4.5 - 5.6 % OUTSIDE LAB (SEE SCANNED REPORT) PHOSPHORUS-OUTSID E LAB OUTSIDE LAB (SEE SCANNED REPORT) PTH-OUTSIDE LAB OUTS [facility] (SEE SCANNED REPORT) MICROALBUMIN RATIO-OUTSIDE LAB OUTSIDE LA B (SEE SCANNED REPORT) PROTEIN, UA-OUTSIDE LAB OUTSIDE LAB (SEE SCANNED REPORT) HEMOGLOBIN-OUTSID E LAB OUTSIDE LAB (SEE SCANNED REPORT) 08/01/2023 History Per Patient LABORATORY OUTSIDE LAB (SEE SCANNED REPORT) documented in this encounter Advance Directives Latest Code Status on File Code Status Date Activated Date Inactivated Comments Full Code 07/23/2018 11:45 AM 07/24/2018 4:27 PM This o rder reflects the patients wishes and were consensually agreed upon. Care Teams Maitre D' Relationship Specialty Start Date End Date Oseas Macdonald III, MD [address] [place] [address] PCP - General Family Medicine 06/04/15 documented as of this encounter
--- OUTSIDE RECORDS SUMMARY | 2023-08-29 10:12 | External Medical Summary | Summary of Care ---
Author Name Unknown Organization [facility] Address [address] [place] [address] Phone [phone] Care Team Providers Care Windows Systems Administrator Name Role Phone Renae MEDINA MD, Oseas Singh Primary Care Provider [phone] Reason for Visit * Reason Comments Outpatient Testing Encounter Details Date Type Department Care Team (Late st Contact Info) Description 08/27/2023 3:20 PM EST Laboratory Laboratory [facility] [address] [place] [address] [facility] [address] [place] [address] Acquired hypothyroidism; Diabetes mellitus with peripheral angiopathy (HCC); Anemia, unspecified type Allergies Active Allergy Reactions Criticality Noted Date Comments Clarithromycin 05/09/2010 Confusion, "buzzing sound in head" documented as of this encounter (statuses as of 08/27/2023) Medications Medication Sig Dispensed Refills Start Date [...] 100 Cap 3 01/25/2018 Active MEDICAL INSTRUCTIONS Custodial-for monitoring of med. [...] mL 2 06/06/2023 Active OneTouch Delica Plus [id number] USE DIRECTED THREE TIMES A DAY BEFORE MEALS 300 Each 3 07/30/2023 Active Folic Acid 1 MG Oral Tablet Take 1 Tablet by mouth in the morning. 0 Active Cyanocobalamin 1000 MCG Oral Tablet (Cyanocobalamin) Take 1 Tablet by mouth in the morning. 90 Tablet 3 08/27/2023 Active documented as of this encounter (statuses as of 08/27/2023) Active Problems Problem Noted Date Diagnosed Date [...] as of this encounter (statuses as of 08/27/2023) Resolved Problems Problem Noted Date Diagnosed Date [...] as of this encounter (statuses as of 08/27/2023) Immunizations Name Administration Dates Next Due COVID-19 [...] Description 08/29/2023 10:00 AM EST Laboratory Laboratory [facility] [place] [address] [place] [phone] [place], Lab [facility] [address] [place] [address] 09/11/2023 10:40 AM EST Office Visit [facility] [address] [place] [address] Jo Flores PA-C [address] [place] [address] 10/08/2023 1:00 PM EDT Office Visit Family Practice [facility] [place] [address] [facility] [place] [address] Jo Flores PA-C 200 [facility] [place] [address] 10/29/2023 11:40 AM EDT Office Visit Rheumatology [facility] [address] [place] [address] Bert Osborne MD [address] [employer] [employer] [place] [address] Pending Results Name Type Priority Associated Diagnoses Date /Time TSH WITH FREE T4 IF INDICATED Lab Routine Acquired hypothyroidism 08/27/2023 3:22 PM EST HEMOGLOBIN A1C Lab Routine Diabetes mellitus with peripheral angiopathy (HCC) 08/27/2023 3:22 PM EST CBC Lab Routine Anemia, unspecified type 08/27/2023 3:22 PM EST IRON SCREEN, INCLUDING TIBC Lab Routine Anemia, unspecified type 08/27/2023 3:22 PM EST FERRITIN Lab Routine Anemia, unspecified type 08/27/2023 3:22 PM EST COMPREHENSIVE METABOLIC PANEL Lab Routine Anemia, unspecified type 08/27/2023 3:22 PM EST VITAMIN B12 Lab Routine Anemia, unspecified type 08/27/2023 3:22 PM EST Scheduled Procedures Name Priority Associated [...] 02/12/2023, 0 01/27/2022, 07/26/2020, Additional history exists Mammogram 07/10/2024 07/10/2023, 06/16, 07/04/2021, Additional history exists TSH 08/21/2024 08/21/2023, 05/16, 02/20/2023, Additional history exists GFR 08/24/2024 08/24/2023, 08/2023, 02/20/2023, Additional history exists O2 ASSESSMENT COMPLETED IN PAST YEAR FOR COPD 08/27/2024 08/27/2023 DTaP,Tdap,and Td Vaccines (3 - Td or [...] 11/08/2010 LUNG CANCER SCREENING - USE SMARTSET [id number] Completed 11/16/2022, 11/10/2021, 10/20/2020, Additional history exists [...] of this encounter Visit Diagnoses Diagnosis Acquired hypothyroidism Unspecified hypothyroidism Diabetes mellitus with peripheral angiopathy (HCC) Type II or unspecified type diabetes mellitus with peripheral circulatory disorders, not stated as uncontrolled Anemia, unspecified type documented in this encounter Advance Directives Latest Code Status on File Code Status Date Activated Date Inactivated Comments Full Code 07/23/2018 11:45 AM 07/24/2018 4:27 PM This o rder reflects the patients wishes and were consensually agreed upon. Care Teams Windows Systems Administrator Relationship Specialty Start Date End Date Oseas Macdonald III, MD [address] [place] [address] PCP - General Family Medicine 06/04/15 documented as of this encounter
--- OUTSIDE RECORDS SUMMARY | 2023-08-29 10:13 | External Medical Summary ---
Author Name Unknown Address Unknown Organization [id number]:[facility] [place] [address] Laboratory Report Ordering Provider Test Date Status NATHANIEL PICHARDO 08/27/2023 15:22:03 Final Observation Date Value Abnormality Reference (Units ) Status BUN 08/27/2023 15:22:03 10 6-20 (mg/dL) Final Creatinine 08/27/2023 15:22:03 0.9 0.5-1.0 (mg/dL) Final Glomerular filtration rate/1.73 sq M.predicted [Volume Rate/Area] in Serum, Plasma or Blood by Creatinine-based formula (CKD-EPI) 08/27/2023 15:22:03 68 >=60 (mL/min) Final eGFR is calculated based on the CKD-EPI 2020 equation SODIUM 08/27/2023 15:22:03 140 135-146 (m mol/L) Final Potassium 08/27/2023 15:22:03 4.2 3.5-5.1 (m mol/L) Final Cl 08/27/2023 15:22:03 103 98-107 (mm ol/L) Final CO2 08/27/2023 15:22:03 28 22-32 (mmo l/L) Final Anion gap 08/27/2023 15:22:03 9 7-15 (mmol /L) Final Glucose 08/27/2023 15:22:03 108 70-120 (mg /dL) Final Albumin 08/27/2023 15:22:03 4.3 3.8-5.0 (g /dL) Final AST (Aspartate aminotransferase) 08/27/2023 15:22:03 40 Above high normal 10-35 (U/L) Final Alk Phos 08/27/2023 15:22:03 96 35-130 (U/ L) Final Bilirubin, Total 08/27/2023 15:22:03 0.7 <=1 .2 (mg/dL) Final Calcium 08/27/2023 15:22:03 8.9 8.4-10.2 ( mg/dL) Final Protein 08/27/2023 15:22:03 7.1 6.0-8.3 (g /dL) Final ALT (Alanine aminotransferase) 08/27/2023 15:22:03 27 10-35 (U/L) Boubacar hernandez Performing Location [facility] [address] [place] [address]
--- OUTSIDE RECORDS SUMMARY | 2023-08-29 10:13 | External Medical Summary ---
Author Name Unknown Address Unknown Organization [id number]:[facility] [place] [address] [place] [address] Laboratory Report Ordering Provider Test Date Status NATHANIEL PICHARDO 08/27/2023 15:22:03 Final Observation Date Value Abnormality Reference (Units ) Status Iron 08/27/2023 15:22:03 65 33-151 (ug /dL) Final Iron-binding capacity 08/27/2023 15:22:03 296 250-425 (ug/dL) Final Transferrin Sat % 08/27/2023 15:22:03 22 15 -55 (%) Final Performing Location [facility] [place] [address] [place] [address]
--- OUTSIDE RECORDS SUMMARY | 2023-08-29 10:13 | External Medical Summary ---
Author Name Unknown Address Unknown Organization K09:[facility] [place] [address] Laboratory Report Ordering Provider Test Date Status GUERA FLETCHER 08/24/2023 06:00:00 Final Observation Date Value Abnormality Reference (Units ) Status BUN 08/24/2023 06:00:00 12 6-20 (mg/dL) Final Creatinine 08/24/2023 06:00:00 1.0 0.5-1.0 (mg/dL) Final Glomerular filtration rate/1.73 sq M.predicted [Volume Rate/Area] in Serum, Plasma or Blood by Creatinine-based formula (CKD-EPI) 08/24/2023 06:00:00 63 >=60 (mL/min) Final eGFR is calculated based on the CKD-EPI 2020 equation SODIUM 08/24/2023 06:00:00 140 135-146 (m mol/L) Final Potassium 08/24/2023 06:00:00 4.1 3.5-5.1 (m mol/L) Final Cl 08/24/2023 06:00:00 103 98-107 (mm ol/L) Final CO2 08/24/2023 06:00:00 29 22-32 (mmo l/L) Final Anion gap 08/24/2023 06:00:00 8 7-15 (mmol /L) Final Glucose 08/24/2023 06:00:00 91 70-120 (mg /dL) Final Calcium 08/24/2023 06:00:00 8.8 8.4-10.2 ( mg/dL) Final Performing Location [facility] [place] [address]
--- OUTSIDE RECORDS SUMMARY | 2023-08-29 10:13 | External Medical Summary ---
Author Name Unknown Address Unknown Organization K09:[facility] [place] [address] Laboratory Report Ordering Provider Test Date Status NATHANIEL PICHARDO 08/27/2023 15:22:03 Final Observation Date Value Abnormality Reference (Units ) Status WBC, Total 08/27/2023 15:22:03 6.57 4.00-10.8 0 (K/uL) Final RBC 08/27/2023 15:22:03 2.91 3.85-5.15 (M/uL) Final Hemoglobin 08/27/2023 15:22:03 9.3 Below low normal 12 .0-15.3 (g/dL) Final HCT 08/27/2023 15:22:03 31.7 Below low normal 36. 0-45.2 (%) Final MCV 08/27/2023 15:22:03 108.9 81.5-97.5 (fL) Final MCH 08/27/2023 15:22:03 32.0 27.0-34.0 (pg) Final MCHC 08/27/2023 15:22:03 29.3 32.0-36.0 (g/dL) Final RDW 08/27/2023 15:22:03 25.4 11.5-15.5 (%) Final Platelets 08/27/2023 15:22:03 335 140-400 (K /uL) Final MPV 08/27/2023 15:22:03 10.3 6.6-11.1 ( fL) Final Performing Location [facility] [place] [address]
--- OUTSIDE RECORDS SUMMARY | 2023-08-29 10:13 | External Medical Summary ---
Author Name Unknown Address Unknown Organization K01:[facility] [place] - [address] [facility] [address] Laboratory Report Ordering Provider Test Date Status NATHANIEL PICHARDO 08/27/2023 15:22:03 Final Observation Date Value Abnormality Reference (Units ) Status Ferritin 08/27/2023 15:22:03 143 13-150 (ng /mL) Final Postmenopausal women have hi gher ferritin levels than pre-menopausal women. The above reference interval is based on pre-menopausal women. Performing Location [facility] - [address] [place] [address]
--- OUTSIDE RECORDS SUMMARY | 2023-08-29 10:13 | External Medical Summary ---
Author Name Unknown Address Unknown Organization K01:[facility] [place] - [address] [place] [address] [address] Laboratory Report Ordering Provider Test Date Status RAVIN METZGER 08/27/2023 15:22:03 Final Observation Date Value Abnormality Reference (Units ) Status TSH 08/27/2023 15:22:03 2.80 0.27-4.20 (uIU/mL) Final Performing Location [facility] [place] - [address] [facility] [address]
--- OUTSIDE RECORDS SUMMARY | 2023-08-29 10:13 | External Medical Summary ---
Author Name Unknown Address Unknown Organization K01:[facility] [place] - [address] [facility] [address] Laboratory Report Ordering Provider Test Date Status MARC NEIL III 08/27/2023 15:22:03 Final Observation Date Value Abnormality Reference (Units ) Status HbA1C 08/27/2023 15:22:03 4.5 4.0-5.6 (% ) Final The use of HbA1c to monitor glycemic status is based on normal hemoglobin and HbA composition. This test should not be used in patients with abnormal hemoglobin that affects the half life of the red blood cell or the in vivo glycation rates. Glucose, estimated average 08/27/2023 15:22:03 82 <126 (mg/dL) Final Performing Location [facility] [place] - [address] [facility] [address]
--- OUTSIDE RECORDS SUMMARY | 2023-08-29 10:13 | External Medical Summary ---
Author Name Unknown Address Unknown Organization K09:[facility] [place] [address] Laboratory Report Ordering Provider Test Date Status GUERA FLETCHER 08/24/2023 06:00:00 Final Observation Date Value Abnormality Reference (Units ) Status WBC, Total 08/24/2023 06:00:00 5.55 4.00-10.8 0 (K/uL) Final RBC 08/24/2023 06:00:00 2.59 3.85-5.15 (M/uL) Final Hemoglobin 08/24/2023 06:00:00 8.0 Below low normal 12 .0-15.3 (g/dL) Final HCT 08/24/2023 06:00:00 26.4 Below low normal 36. 0-45.2 (%) Final MCV 08/24/2023 06:00:00 101.9 81.5-97.5 (fL) Final MCH 08/24/2023 06:00:00 30.9 27.0-34.0 (pg) Final MCHC 08/24/2023 06:00:00 30.3 32.0-36.0 (g/dL) Final RDW 08/24/2023 06:00:00 27.4 11.5-15.5 (%) Final Platelets 08/24/2023 06:00:00 295 140-400 (K /uL) Final MPV 08/24/2023 06:00:00 10.3 6.6-11.1 ( fL) Final Performing Location [facility] [place] [address]
--- OUTSIDE RECORDS SUMMARY | 2023-08-29 10:13 | External Medical Summary ---
Author Name Unknown Address Unknown Organization K01:[facility] [place] - [address] [place] [address] Laboratory Report Ordering Provider Test Date Status NATHANIEL PICHARDO 08/27/2023 15:22:03 Final Observation Date Value Abnormality Reference (Units ) Status Vitamin B12 08/27/2023 15:22:03 293 314-9286 (pg/mL) Final Performing Location [facility] - [address] [place] [address]
--- OUTSIDE RECORDS SUMMARY | 2023-08-29 10:13 | External Medical Summary | Summary of Care ---
Author Name Unknown Organization [facility] Address [address] [place] [address] Phone [phone] Care Team Providers Care Water Tester Name Role Phone Renae MEDINA MD, Oseas Singh Primary Care Provider [phone] Encounter Details Date Type Department Care Team (Late st Contact Info) Description 08/07/2023 Telephone Gastroenterology, [facility] [address] [place] [address] Gaye Live CRNP [address] [place] [address] Allergies Active Allergy Reactions Criticality Noted Date [...] 100 Cap 3 01/25/2018 Active MEDICAL INSTRUCTIONS Penitentiary-for monitoring of med. compliance, filling of med. [...] EVERY DAY 90 Tablet 1 06/06/2023 Active OneTouch Delica Plus [id number] USE DIRECTED THREE TIMES A DAY BEFORE MEALS 300 Each 3 07/30/2023 Active documented as of this encounter (statuses [...] mRNA, LNP-s, No Pre serve, 2-Dose Series (People and Pages) 07/30/2021,11/11/2020,10/21/2020 DT - Diptheria/Tetanus (PEDS) 06/04/2015 Pneumococcal [...] encounter Miscellaneous Notes * Telephone Encounter - Delaney Ferrari OSA - 08/27/2023 1:12 PM EST Lmm FRENCH [place] 08/27/2023 1:12 PM * Telephone Encounter - Roxane Chavira OSA - 08/07/2023 3:15 PM EST LMOM * Telephone Encounter - Gaye Live CRNP - 08/07/2023 9:13 AM EST Seen in Consult at [facility] w Dr. Martinez for symptomatic anemia, no gross GI bleeding. Hb 6.1 on arrival, received on e unit of blood ->7.9 08/06/22. She continues to be admitted there. Is on Plavix. Please arrange OP EGD/Colonoscopy documented in this encounter Plan of Treatment Upcoming Encounters Date Type Department Care Team (Late st Contact Info) Description 08/27/2023 2:00 PM EST Office Visit [facility] [address] [facility] [address] [facility] [address] [place] [address] Jo Flores PA-C [address] [facility] [place] [address] 08/29/2023 10:00 AM EST Laboratory Laboratory [facility] [address] [facility] [place] [phone] [facility] [address] [facility] [place] [address] 09/11/2023 10:40 AM EST Office Visit [facility] [address] [facility] [place] [address] Jo Flores PA-C [address] [facility] [address] 10/29/2023 11:40 AM EDT Office Visit Rheumatology [place] [id number] [place] [address] Bert Osborne MD [address] [employer] [place] [address] Scheduled Orders Name Type Priority Associated Diagnoses Orde r Schedule EGD, FLEXIBLE, DIAGNOSTIC Procedures Routine Symptomatic anemia Ordered: 08/07/2023 COLONOSCOPY, DIAGNOSTIC (RECTUM) Procedures Routine Symptomatic anemia Ordered: 08/07/2023 Scheduled Procedures Name Priority Associated Diagnoses Date/Ti [...] 02/20/2023, Additional history exists GFR 08/24/2024 08/24/2023, 02/0 08/2023, 02/20/2023, Additional history exists DTaP,Tdap,and Td Vaccines (3 [...] 11/08/2010 LUNG CANCER SCREENING - USE SMARTSET [id number] Completed 11/16/2022, 11/10/2021, 10/20/2020, Additional history exists [...] as of this encounter Visit Diagnoses Diagnosis Symptomatic anemia- Primary documented in this encounter Advance Directives Latest Code Status on File Code Status Date Activated Date Inactivated Comments Full Code 07/23/2018 11:45 AM 07/24/2018 4:27 PM This o rder reflects the patients wishes and were consensually agreed upon. Care Teams Water Tester Relationship Specialty Start Date End Date Oseas Macdonald III, MD [address] [place] [address] PCP - General Family Medicine 06/04/15 documented as of this encounter
--- NOTE | 2023-08-29 10:18 | XRay Report ---
XR chest 1V portable HISTORY: weakness COMPARISON: Chest 07/31/2023. FINDINGS: No pneumothorax. No pleural effusions. The heart is normal in size. The lungs are clear. No evidence for pulmonary edema. Cervical spinal fusion hardware again noted. IMPRESSION: No acute process. ACT 112: Negative or not required by law. Electronically signed by: Israel Mccracken M.D. 08/29/2023 10:17 AM
[2023-08-29 10:23] LABS: Alanine Aminotransferase 17 U/L (7-52); Albumin Globulin Ratio 1.3 (0.9-2); Albumin Level 3.7 gm/dl (3.4-5.0); Alkaline Phosphatase 63 U/L (34-104); Anion Gap 7 (3-11); Aspartate Aminotransferase 24 U/L (13-39); BUN Creatinine Ratio 22.4 (10-20); Bilirubin,Total 0.8 mg/dl (0.2-1.0); Blood Urea Nitrogen 19 mg/dl (6-23); Calcium 8.7 mg/dl (8.6-10.3); Carbon Dioxide 28 mmol/L (21-32); Chloride 100 mmol/L (98-107); Creatine Kinase 38 U/L (26-192); Est GFR (African American) 81.6 ml/min; Est GFR (Non-African American) 70.4 ml/min; Globulin 2.9 gm/dl (2.5-4.0); Glucose 88 mg/dl (70-99(Fasting)); Lipase 22 U/L (11-82); Magnesium 1.8 mg/dl (1.7-2.4); Potassium 4.3 mmol/L (3.5-5.1); Sodium 135 mmol/L (136-145); Total Protein 6.6 gm/dl (6.0-8.3)
[2023-08-29 10:32] LABS: INR 1.1 (0.9-1.1); Prothrombin Time 11.8 Seconds (9.0-12.0)
[2023-08-29 10:36] LABS: Thyroid Stimulating Hormone 2.318 uIu/ml (0.300-4.500)
[2023-08-29 10:39] LABS: Anisocytosis Present; Ovalocytes 1+; Polychromasia 1+
[2023-08-29 10:48] LABS: Adenovirus PCR Not Detected (NotDetected); Bordetella parapertussis PCR Not Detected (NotDetected); Bordetella pertussis PCR Not Detected (NotDetected); Chlamydia pneumoniae PCR Not Detected (NotDetected); Coronavirus 229E PCR Not Detected (NotDetected); Coronavirus CoV-2 (COVID19)PCR Not Detected (NotDetected); Coronavirus HKU1 PCR Not Detected (NotDetected); Coronavirus NL63 PCR Not Detected (NotDetected); Coronavirus OC43PCR Not Detected (NotDetected); Human Metapneumovirus PCR Not Detected (NotDetected); Influenza A PCR Not Detected (NotDetected); Influenza B PCR Not Detected (NotDetected); Mycoplasma pneumoniae PCR Not Detected (NotDetected); Parainfluenza Virus 1 PCR Not Detected (NotDetected); Parainfluenza Virus 2 PCR Not Detected (NotDetected); Parainfluenza Virus 3 PCR Not Detected (NotDetected); Parainfluenza Virus 4 PCR Not Detected (NotDetected); Respiratory Syncytial VirusPCR Not Detected (NotDetected); Rhinovirus/Enterovirus PCR Not Detected (NotDetected)
[2023-08-29 11:45] LABS: Reticulocyte % 10.03 % (0.50-2.00); Reticulocytes # 0.24 10^6/uL (0.020-0.100)
[2023-08-29 12:18] LABS: Ferritin 77.5 ng/ml (8-388)
[2023-08-29 12:23] LABS: Folate (Folic Acid),Ser orPlas > 22.30 ng/ml (>5.38)
[2023-08-29 12:24] LABS: Vitamin B12 388 pg/ml (180-914)
[2023-08-29] MEDS: OPTIRAY 320 500ml IV ONE (13:39)
--- NOTE | 2023-08-29 14:06 | CT Scan Report ---
ABDOMEN AND PELVIS CT WITH IV CONTRAST CT DOSE: 1104.54 mGy.cm HISTORY: weakness, anemia TECHNIQUE: Multiaxial CT images of the abdomen and pelvis were performed following the use of intrave nous contrast. A dose lowering technique was utilized adhering to the principles of ALARA. COMPARISON STUDY: Abdomen and pelvis CT 08/02/2023. FINDINGS: Mild interstitial thickening at the lung bases. This is likely chronic. No pneumoperitoneum . No pneumatosis. Coflex device is at the L3-L4 and L4-5 levels again noted old, healed left-sided ri b fractures. There is a healing right lateral ninth rib fracture, unchanged. Decrease in size in the prominent distal paraesophageal lymph nodes. The gallbladder remains mildly distended. No gallbladder wall thickening. No hepatic or splenic masses. Small bilateral adrenal gland nodules remain unchange d. Normal pancreas. The kidneys enhance normally. No hydronephrosis. The main portal vein is patent. Mild gastrohepatic lymphadenopathy remains unchanged. Dominant lymph node on image 82 measures 8 mm i n short axis diameter. Mild periportal lymphadenopathy persists. Moderate calcified plaque within the ectatic abdominal aorta measuring up to 2.4 centers in diameter. No mesenteric or pelvic lymphadenop athy. Mild bladder wall thickening. Mild hepatic steatosis. No pelvic free fluid. The uterus is unrem arkable. Moderate fecal retention. A few colonic diverticula. No evidence for acute diverticulitis. N o bowel wall thickening or obstruction. Prior appendectomy. No retroperitoneal hematoma. IMPRESSION: 1. Mild bladder wall thickening, unchanged. Recommend correlation with urinalysis to exclude a cystit is. 2. No bowel wall thickening or obstruction. 3. Distended gallbladder, unchanged. No gallbladder wall thickening. 4. Mild hepatic steatosis. 5. No hydronephrosis. 6. Mild upper abdominal lymphadenopathy, unchanged. The prominent distal paraesophageal lymph nodes h ave slightly decreased in size. 7. Moderate fecal retention. ACT 112: Negative or not required by law. Electronically signed by: Israel Mccracken M.D. 08/29/2023 2:04 PM
--- NOTE | 2023-08-29 16:43 | History & Physical Report ---
Date of Service August 29, 2023 Assessment & Plan (1) Generalized weakness: (2) Macrocytic anemia: (3) History of CVA with residual deficit: (4) DM type 2 (diabetes mellitus, type 2): Plan This is a 64-year-old female who has significant PMH of DM II on insulin, hx of CVA with residual aphasia/R sided weakness, carotid artery stenosis, L subclavian occlusion, HTN, HLD, COPD, Hypothyroidism, GERD, Scleroderma/CREST syn, Mood disorder, Depression with anxiety who presents to [facility] ED secondary to overall feeling weak. Generalized weakness admit to med tele consult PT/OT ? if in setting of a/c anemia vs general deconditioning vs possible UTI empirically tx with IV ertapenem, await urine and blood cultures Acute on chronic macrocytic anemia *stable Anti-lukas antibody Iron deficiency anemia B12 deficiency -History of iron deficiency, on chronic supplementation --Anemia labs during recent admission not suggestive of hemolysis, DIC, myelodysplasia -Smear on recent admission consistent with anemia (chronic disease, nutritional deficiencies, renal disease) -During recent admission received S/p 1 Unit lukas negative blood, 3 days of IV iron. Repeat anemia panel WNL; however given recent transfusions not entirely accurate will give venofer 300mg IV x 1 now type and cross 2 units, pt with very rare blood, consent obtained Blood consent was obtained from the patient as delegated by Dr. Bermudez. Risks and benefits were explained. All questions were answered, and the patient was offered the opportunity to discuss with attending physician and declined. consulted during the hospitalization; recommended EGD as outpatient. Obtain FOBT Consult GI to re consider inpatient EGD to r/o chronic blood loss as source of anemia Lyme Disease recent dx s/p Doxy, completed 08/22 Prior CVA c/b right hemiparesis and dysarthria 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 Large area of encephalomalacia within the left MCA territory compatible with chronic infarct(s), increased in size compared to the 2018 comparison. Fall precautions, PT/OT Continue statin, ASA Hold plavix in a.m. until re assessed by a.m. prior and repeat H/H obtained, resume as soon as able and if no procedure to be performed DM type 2 (diabetes mellitus, type 2) A1c 5.3 in Feb 2023 Hold home PO Basal/bolus insulin per protocol while in-patient BSG checks AC HS Hx of Hypertension previously on losartan, was D/C at last hospital stay due to low BP monitor Hypothyroidism Continue levothyroxine CREST syndrome Has some chronic skin lesions. Not on medications DVT Ppx: SCDs for now Code status: FULL PCP: Renae Dispo: Admitted to [facility]. Pt was seen and examined in collaboration with Dr. Bermudez, please see addendum A total of 76 minutes was spent coordinating, documenting, and providing care for this patient excluding time spent in the performance of separately billed services. This included personally viewing all current laboratories and imaging studies, medication reconciliation, outpatient chart review, and discussion with specialists. History of Present Illness Chief Complaint: Weakness x 1 day. Primary Care Provider: Oseas Macdonald MD This is a 68-year-old female who has significant PMH of DM II on insulin, hx of CVA with residual aphasia/R sided weakness, carotid artery stenosis, L subcl jocelin occlusion, HTN, HLD, COPD, Hypothyroidism, GERD, Scleroderma/CREST syn, Mood disorder, Depression with anxiety who presents to [facility] ED secondary to overall feeling weak. She uses a walker at home. She generally felt weak at home. She was recently discharged from [facility]. She denies any falls. She was brought to ED today by her caregiver. She lives alone but has a caregiver. She feels weak all over. She reports being lightheaded but denies syncope. She denies any pain, f/c/s, chest pain, sob, n/v/d, abd pain, dysuria, increased urg/freq with urination, or hematuria. She moved her bowels yesterday. She states she noticed red blood in stool. Of significance patient was recently hospitalized 07/31 to 08/16/2023. She was hospitalized secondary to sepsis due to E. coli UTI. She received course of IV ertapenem. Her hospital course was complicated by acute on chronic macrocytic anemia. She has known antiviral antibody. She also has history of iron deficiency and B12 deficiency in the past. During this hospitalization she received 1 unit of Lukas negative Rh- blood. Unfortunately due to antivel antibody her blood is very difficult to locate. Peripheral smear at that time was consistent with anemia of chronic disease. She also received 3 days of IV iron. Hemoglobin was as high as 9.4 and on day of discharge was 8.3 as of 08/16/2023. During hospital course she did test positive for Lyme completing a course of doxycycline that completed on 08/22/2023. Due to weakness and deconditioning she was then discharged to [facility]. Per ED provider patient did [facility] She was seen and evaluated by gastroenterology during last admission who recommended EGD as an outpatient. Allergies Allergy/AdvReac Type Severity Reaction Status Date / Time clarithromycin AdvReac Unknown FEEL WEIRD Verified 08/23/23 14:29 Home Medications Medication Instructions Recorded Confirmed Type atorvastatin 80 mg tablet 80 mg PO HS 07/14/18 08/29/23 History bisacodyl 5 mg tablet,delayed 5 mg PO HS PRN Constipation 07/14/18 08/29/23 History release (Dulcolax (bisacodyl)) docusate calcium 240 mg capsule 240 mg PO DAILY PRN Constipation 07/14/18 08/29/23 History (Stool Softener (docusate calcium)) donepezil 10 mg tablet 10 mg PO HS 07/14/18 08/29/23 History ezetimibe 10 mg tablet 10 mg PO QAM 07/14/18 08/29/23 History ferrous sulfate 325 mg (65 mg 650 mg PO QAM 07/14/18 08/29/23 History iron) tablet loratadine 10 mg tablet (Claritin) 10 mg PO HS PRN allergies 07/14/18 08/29/23 History metformin 500 mg tablet,extended 1,000 mg PO BID 07/14/18 08/29/23 History release 24 hr mirtazapine 30 mg tablet 30 mg PO HS 07/14/18 08/29/23 History ropinirole 0.5 mg tablet 0.5 mg PO HS 07/14/18 08/29/23 History trazodone 50 mg tablet 50 mg PO HS PRN Pain 07/14/18 08/29/23 History venlafaxine 75 mg tablet 75 mg PO QAM 07/14/18 08/29/23 History insulin glargine 100 unit/mL (3 24 unit subcut QAM 05/12/19 08/29/23 History mL) subcutaneous pen (Basaglar KwikPen U-100 Insulin) clopidogrel 75 mg tablet (Plavix) 75 mg PO QAM 08/25/19 08/29/23 History aspirin 81 mg capsule 81 mg PO DAILY 07/31/23 08/29/23 History dulaglutide 0.75 mg/0.5 mL 0.75 mg subcut WK 07/31/23 08/29/23 History subcutaneous pen injector (Trulicity) fluticasone propionate 50 2 spray intranasal DAILY 07/31/23 08/29/23 History mcg/actuation nasal spray,suspension gabapentin 300 mg capsule 300 mg PO BID 07/31/23 08/29/23 History levothyroxine 50 mcg tablet 50 mcg PO DAILY 07/31/23 08/29/23 History pantoprazole 40 mg tablet,delayed 40 mg PO QAM 07/31/23 08/29/23 History release cyanocobalamin (vitamin B-12) 500 1,000 mcg (2 x 500 mcg) PO QAM #30 08/16/23 08/29/23 Rx mcg tablet tabs diclofenac sodium 1 % topical gel 2 g EXT TID #50 grams 08/16/23 08/29/23 Rx (Voltaren Arthritis Pain) folic acid 1 mg tablet 1 mg PO QAM #3 tabs 08/16/23 08/29/23 Rx Past Med/Surg History Medical History Generalized weakness Generalized weakness Restless leg syndrome Hypertension Vascular disease Mood disorder History of CVA with residual deficit approx 7 yrs > H/o L MCA stroke during attempted L SCA stenting. Has residual dysphagia Gastroparesis Esophagitis Carotid stenosis Right carotid artery 70 to 90% stenosis of internal carotid, left carotid artery 50 to 69% Hyperlipidemia DJD (degenerative joint disease), lumbar DM type 2 (diabetes mellitus, type 2) IDDM Hypothyroidism PVD (peripheral vascular disease) CREST syndrome Anemia Surgical History History of cataract surgery left History of tooth extraction Hx of esophagogastroduodenoscopy Hx of colonoscopy H/O foot surgery right History of hysterectomy History of spinal fusion lumbar S/P appendectomy (10/11/12) Family History Mother Breast cancer Uterine cancer Father Lung cancer Emphysema/COPD Social History Smoking Status: Never smoker Second Hand Exposure: No; Do You Dip or Chew Tobacco: No; Hx Alcohol Use: No Hx Substance Use: No Preferred Language: Croatian Communication Ability: Effective 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 Bermudez addendum for physical exam findings. Results & Data Results & Data Vital Signs (Past 12 Hours) Vital Signs Temp Pulse Pulse Resp BP BP Pulse Ox 08/29/23 15:30 89 19 142/88 H 97 08/29/23 14:00 96 H 16 102/57 L 98 08/29/23 10:55 100 08/29/23 10:55 89 16 129/58 L 99 08/29/23 09:21 92 H 08/29/23 08:49 98 08/29/23 08:32 36.6 C 103 H 18 126/90 95 08/29/23 08:28 98 O2 Del Method 08/29/23 15:30 Room Air 08/29/23 14:00 Room Air 08/29/23 10:55 Room Air 08/29/23 10:55 Room Air 08/29/23 09:21 08/29/23 08:49 Room Air 08/29/23 08:32 Room Air 08/29/23 08:28 Room Air Diagnostic Findings Chest X-Ray 08/29/23 08:49 XR chest 1V portable HISTORY: weakness COMPARISON: Chest 07/31/2023. FINDINGS: No pneumothorax. No pleural effusions. The heart is normal in size. The lungs are clear. No evidence for pulmonary edema. Cervical spinal fusion hardware again noted. IMPRESSION: No acute process. ACT 112: Negative or not required by law. Electronically signed by: Israel Mccracken M.D. 08/29/2023 10:17 AM Abdomen/Pelvis CT 08/29/23 11:[address] WITH IV CONTRAST CT DOSE: 1104.54 mGy.cm HISTORY: weakness, anemia TECHNIQUE: Multiaxial CT images of the abdomen and pelvis were performed following the use of intravenous contrast. A dose lowering technique was utilized adhering to the principles of ALARA. COMPARISON STUDY: Abdomen and pelvis CT 08/02/2023. FINDINGS: Mild interstitial thickening at the lung bases. This is likely chronic. No pneumoperitoneum. No pneumatosis. Coflex device is at the L3-L4 and L4-5 levels again noted old, healed left-sided rib fractures. There is a healing right lateral ninth rib fracture, unchanged. Decrease in size in the prominent distal paraesophageal lymph nodes. The gallbladder remains mildly distended. No gallbladder wall thickening. No hepatic or splenic masses. Small bilateral adren al gland nodules remain unchanged. Normal pancreas. The kidneys enhance normally. No hydronephrosis. The main portal vein is patent. Mild gastrohepatic lymphadenopathy remains unchanged. Dominant lymph node on image 82 measures 8 mm in short axis diameter. Mild periportal lymphadenopathy persists. Moderate calcified plaque within the ectatic abdominal aorta measuring up to 2.4 centers in diameter. No mesenteric or pelvic lymphadenopathy. Mild bladder wall thickening. Mild hepatic steatosis. No pelvic free fluid. The uterus is unremarkable. Moderate fecal retention. A few colonic diverticula. No evidence for acute diverticulitis. No bowel wall thickening or obstruction. Prior appendectomy. No retroperitoneal hematoma. IMPRESSION: 1. Mild bladder wall thickening, unchanged. Recommend correlation with urinalysis to exclude a cystitis. 2. No bowel wall thickening or obstruction. 3. Distended gallbladder, unchanged. No gallbladder wall thickening. 4. Mild hepatic steatosis. 5. No hydronephrosis. 6. Mild upper abdominal lymphadenopathy, unchanged. The prominent distal paraesophageal lymph nodes have slightly decreased in size. 7. Moderate fecal retention. ACT 112: Negative or not required by law. Electronically signed by: Israel Mccracken M.D. 08/29/2023 2:04 PM Medications Administered Medication List Discontinued Medications Sodium Chloride (Nss) 1,000 mls @ 999 mls/hr IV .Q1H1M ONE Stop: 08/29/23 09:50 Last Infusion: 08/29/23 10:55 Dose: Infused Documented By: Admin: 08/29/23 09:44 Dose: 999 mls/hr Documented By: MARILYNN Ioversol (Optiray 320 500ml) 94 ml IV ONCE ONE Stop: 08/29/23 13:39 Last Admin: 08/29/23 13:39 Dose: 94 ml Documented By: PARVIN ECG Rate (beats per minute): 91 Additional Comments: I have independently reviewed and interpreted patient's admitting EKG which revealed: 91 bpm, prolonged qtc unchanged from previous COVID-19 Results Results COVID-19 Adm Lab Results: RBC 2.39 M/uL (4.20-5.40) L 08/29/23 WBC 6.83 K/ul (4.8-10.8) 08/29/23 Hgb 7.3 g/dl (12.0-16.0) L 08/29/23 Hct 24.5 % (37.0-47.0) L 08/29/23 Plt Count 284 K/uL (130-400) 08/29/23 Neutrophils (%) (Auto) 67.3 % 08/29/23 Lymphocytes (%) (Auto) 20.5 % 08/29/23 Monocytes # (Auto) 0.68 K/uL (0.11-0.59) H 08/29/23 Eosinophils # (Auto) 0.06 K/uL (0.00-0.50) 08/29/23 Immature Granulocyte % (Auto) 0.9 % 08/29/23 Neutrophils # (Auto) 4.60 K/uL (1.40-6.50) 08/29/23 Lymphocytes # (Auto) 1.40 K/uL (1.20-3.40) 08/29/23 Monocytes # (Auto) 0.68 K/uL (0.11-0.59) H 08/29/23 Eosinophils # (Auto) 0.06 K/uL (0.00-0.50) 08/29/23 Basophils # (Auto) 0.03 K/uL (0.00-0.20) 08/29/23 Immature Granulocyte # (Auto) 0.06 K/uL (0.01-0.20) 4 Polychromasia 1+ 08/29/23 Anisocytosis Present 08/29/23 Ovalocytes 1+ 08/29/23 Na 135 mmol/L (136-145) L 08/29/23 K 4.3 mmol/L (3.5-5.1) 08/29/23 Cl 100 mmol/L (98-107) 08/29/23 CO2 28 mmol/L (21-32) 08/29/23 Anion Gap 7 (3-11) 08/29/23 BUN 19 mg/dl (6-23) 08/29/23 Creatinine 0.85 mg/dl (0.6-1.2) 08/29/23 BUN/Creatinine Ratio 22.4 (10-20) H 08/29/23 Glucose Level 88 mg/dl (70-99(Fasting)) 08/29/23 Ca 8.7 mg/dl (8.6-10.3) 08/29/23 Phosphorus Level 3.0 mg/dl (2.5-4.9) 08/29/23 Total Bilirubin 0.8 mg/dl (0.2-1.0) 08/29/23 AST/SGOT 24 U/L (13-39) 08/29/23 ALT/SGPT 17 U/L (7-52) 08/29/23 Alkaline Phosphatase 63 U/L (34-104) 08/29/23 Total Protein 6.6 gm/dl (6.0-8.3) 08/29/23 Albumin 3.7 gm/dl (3.4-5.0) 08/29/23 Globulin 2.9 gm/dl (2.5-4.0) 08/29/23 Albumin/Globulin Ratio 1.3 (0.9-2) 08/29/23 Total CK 38 U/L (26-192) 08/29/23 Procalcitonin 0.06 ng/ml (0-0.5) 08/29/23 Ferritin 77.5 ng/ml (8-388) 08/29/23 INR 1.1 (0.9-1.1) 08/29/23 Adenovirus (PCR) Not Detected (NotDetected) 08/29/23 B. parapertussis DNA (PCR) Not Detected (NotDetected) 08/16 11/06 B. pertussis DNA (PCR) Not Detected (NotDetected) 08/29/23 C. pneumoniae DNA (PCR) Not Detected (NotDetected) Coronavirus Type OC43 (PCR) Not Detected (NotDetected) Coronavirus Type HKU1 (PCR) Not Detected (NotDetected) Coronavirus Type 229E (PCR) Not Detected (NotDetected) COVID-19 PCR Not Detected (NotDetected) 08/29/23 Coronavirus Type NL63 (PCR) Not Detected (NotDetected) Human Metapneumovirus (PCR) Not Detected (NotDetected) Influenza Virus Type A (PCR) Not Detected (NotDetected) Influenza Virus Type B (PCR) Not Detected (NotDetected) M. pneumoniae (PCR) Not Detected (NotDetected) 08/29/23 Parainfluenza Type 1 (PCR) Not Detected (NotDetected) 08/16 11/06 Parainfluenza Type 2 (PCR) Not Detected (NotDetected) 08/16 11/06 Parainfluenza Type 3 (PCR) Not Detected (NotDetected) 08/16 11/06 Parainfluenza Type 4 (PCR) Not Detected (NotDetected) 08/16 11/06 RSV (PCR) Not Detected (NotDetected) 08/29/23 Enterovirus/Rhinovirus (PCR) Not Detected (NotDetected) Chest X-Ray 08/29/23 Code Status & VTE Plan Code Status FULL CODE Supervising Physician Co-Signing Physician Notes Patient is a 68-year-old female with history of diabetes mellitus, prior CVA with residual right-sided weakness and other medical problems presents with history of generalized weakness and not feeling well. [facility] She admits to have dizziness intermittently. She denied any chest pain, dyspnea, dysuria, hematuria. Please review HPI for complete details of presentation. Patient was recently hospitalized at [facility] and was treated for sepsis secondary to UTI, microcytic anemia and suspected Lyme's disease. I personally reviewed blood work and imaging studies. Hemoglobin 7.5. Hematocrit 24.6, MCV 102.9, INR 1.1, sodium 135, glucose 88, normal LFTs, TSH, B12, folate levels. Iron panel reviewed as well. Fecal occult pending currently. BioFire negative. Chest x-ray showed no acute process. CT abdomen showed mild bladder wall thickening, findings suggestive of mild hepatic steatosis, fecal retention and distended gallbladder. Also noted upper abdominal lymphadenopathy and distal paraesophageal lymph nodes unchanged from prior imaging. Physical Exam: Vitals signs as noted above General Appearance:Moderately built and nourished, no apparent distress, chronically appearing Head: normocephalic, Atraumatic Eyes: normal inspection, EOMI Neck: supple, Trachea midline Respiratory/Chest: Decreased breath sounds, CTA, No accessory muscle use Cardiovascular: S1, S2, No murmur Abdomen/GI:Soft, Non tender, Bowel sounds present Extremities/Musculoskeletal:normal inspection, no edema Neurologic/Psych:AAOX3, right upper and lower extremity 4/5, otherwise grossly no focal deficits, + slow to respond Skin: normal color, warm Symptomatic macrocytic anemia Suspect chronic blood loss anemia Generalized weakness Fecal retention Prior CVA with right-sided weakness Deconditioning likely secondary to comorbidities Fecal occult pending Consulted GI for possible endoscopy Hold Plavix for now Plan to hold aspirin as well if develops any bleeding issues Continue iron, B12, folate supplements Monitor H&H and transfuse as needed PT OT as able Blood, urine cultures pending--rule out infection Will consider changing p.o. Protonix to IV if fecal occult positive I personally interviewed and examined at bedside. Patient's care is coordinated with Marline Spencer PA-C. I have reviewed the advanced practitioner's documentation, and I agree with, and take responsibility for that plan of care. Please refer to the documentation above for details of patient's presentation and for discussion of other issues. I spent a total [id number] coordinating, documenting, and providing care for this patient excluding time spent in the performance of separately billed services.
[2023-08-29] MEDS ORDERED: SODIUM CHLORIDE 0.9% 250 ML IV PRN (16:50)
[2023-08-29 17:37] LABS: Appearance Urine Clear (Clear); Bacteria Urine Automated Negative (Negative); Bilirubin Urine Negative (Negative); Blood Urine Negative (Negative); Cast Urine Automated 0 /lpf (0-5); Color Urine Yellow; Epithelial Cell Urine Auto 0-5 /lpf (0-5); Glucose Urine UA Negative (Negative); Ketones Urine Negative (Negative); Leukocyte Esterase Urine Trace (Negative); Nitrite Urine Negative (Negative); Protein Urine Negative (Negative); RBC Urine Automated 0-4 /hpf (0-4); Specific Gravity Urine 1.024 (1.000-1.030); Urobilinogen Urine Negative (Negative)
[2023-08-29] MEDS ORDERED: MAGNESIUM HYDROXIDE SUSP 30 ML UDC PO PRN (17:54)
[2023-08-29] MEDS ORDERED: CARBOHYDRATES FOR HYPOGLYCEMIA PO PRN (17:54)
[2023-08-29] MEDS ORDERED: ERTAPENEM SODIUM 10 ML IV STA (17:54)
[2023-08-29] MEDS ORDERED: GLUCOSE 10 TAB/TUBE PO PRN (17:54)
[2023-08-29] MEDS ORDERED: ALUMINUM/MAGNESIUM SUSP 30 ML UDC PO PRN (17:54)
[2023-08-29] MEDS ORDERED: GLUCOSE 40% GEL 15 GM TUBE PO PRN (17:54)
[2023-08-29] MEDS ORDERED: POLYETHYLENE (MIRALAX) 17 GM PACK PO PRN (17:54)
[2023-08-29] MEDS ORDERED: ACETAMINOPHEN 325 MG TAB PO PRN (17:54)
[2023-08-29] MEDS ORDERED: GLUCAGON FOR INJ 1 MG VIAL SQ PRN (17:54)
[2023-08-29] MEDS ORDERED: DEXTROSE 50% 50 ML SYRINGE IV PRN (17:54)
[2023-08-29] MEDS: IRON SUCROSE 300 MG in SODIUM CHLORIDE 0.9% 250 ML IV ONE (18:40)
[2023-08-29 20:16] LABS: Hematocrit (blood only) 24.5 % (37.0-47.0); Hemoglobin 7.3 g/dl (12.0-16.0)
[2023-08-29] MEDS: ATORVASTATIN 40 MG TAB PO SCH (20:27)
[2023-08-29] MEDS: ERTAPENEM SODIUM 1,000 MG in SYRINGE 0 ML IV SCH (20:27)
[2023-08-29] MEDS: rOPINIRole HCL 0.25 MG TABLET PO SCH (20:28)
[2023-08-29] MEDS: INSULIN ASPART PER UNIT CHARGE SC SCH (20:28)
[2023-08-29] MEDS: DONEPEZIL HCL 10 MG TAB PO SCH (20:28)
[2023-08-29] MEDS: GABAPENTIN 300 MG CAP PO SCH (20:28)
[2023-08-29] MEDS: MIRTAZAPINE TAB 15 MG TAB PO SCH (20:28)
[2023-08-30] MEDS: LEVOTHYROXINE SODIUM 50 MCG TABLET PO SCH (05:17)
--- NOTE | 2023-08-30 05:51 | Electrocardiogram Report ---
Test Reason : Blood Pressure : / mmHG Vent. Rate : 091 BPM Atrial Rate : 000 BPM P-R Int : 000 ms QRS Dur : 062 ms QT Int : 386 ms P-R-T Axes : 000 054 142 degrees QTc Int : 474 ms Normal sinus rhythm Prolonged QT Abnormal ECG When compared with ECG of 03-AUG-2023 15:50, No significant change Confirmed by Magan Moore ([id number]) on 08/30/2023 5:51:16 AM Referred By: REFERRED SELF Confirmed By:Magan Moore
[2023-08-30 06:44] LABS: Basophils # (auto) 0.04 K/uL (0.00-0.20); Basophils % (auto) 0.8 %; Eosinophils # (auto) 0.11 K/uL (0.00-0.50); Eosinophils % (auto) 2.2 %; Hematocrit (blood only) 23.6 % (37.0-47.0); Hemoglobin 7.2 g/dl (12.0-16.0); Immature Granulocytes # (auto) 0.05 K/uL (0.01-0.20); Lymphocytes # (auto) 1.15 K/uL (1.20-3.40); Lymphocytes % (auto) 23.2 %; Mean Corpuscular Hemoglobin 31.6 pg (25.0-34.0); Mean Corpuscular Hgb Conc 30.5 g/dL (32.0-36.0); Mean Corpuscular Volume 103.5 fL (80.0-100.0); Mean Platelet Volume 10.3 fL (9.4-12.4); Monocytes # (auto) 0.58 K/uL (0.11-0.59); Monocytes % (auto) 11.7 %; Neutrophils # (auto) 3.03 K/uL (1.40-6.50); Neutrophils % (auto) 61.1 %; Platelet Count 273 K/uL (130-400); RDW Coefficient of Variation 23.5 % (11.5-14.5); RDW Standard Deviation 89.3 fL (36.4-46.3); Red Blood Count 2.28 M/uL (4.20-5.40); White Blood Count 4.96 K/ul (4.8-10.8)
[2023-08-30 07:07] LABS: Anisocytosis Present; Polychromasia 2+; Tear Drop Cells 1+
[2023-08-30 07:22] LABS: Albumin Globulin Ratio 1.6 (0.9-2); Albumin Level 3.5 gm/dl (3.4-5.0); Bilirubin,Total 0.6 mg/dl (0.2-1.0); Calcium 8.2 mg/dl (8.6-10.3); Est GFR (African American) 94.9 ml/min; Est GFR (Non-African American) 81.9 ml/min; Globulin 2.2 gm/dl (2.5-4.0); Potassium 4.1 mmol/L (3.5-5.1); Total Protein 5.7 gm/dl (6.0-8.3)
[2023-08-30] MEDS: VENLAFAXINE HCL 37.5 MG TAB PO SCH (08:08)
[2023-08-30] MEDS: FERROUS SULFATE 325 MG TAB PO SCH (08:09)
[2023-08-30] MEDS: EZETIMIBE 10 MG TAB PO SCH (08:09)
[2023-08-30] MEDS: FOLIC ACID 1 MG TAB PO SCH (08:09)
[2023-08-30] MEDS: CYANOCOBALAMIN (B-12) 500 MCG TABLET PO SCH (08:09)
[2023-08-30] MEDS: PANTOprazole 40 MG TAB PO SCH (08:10)
[2023-08-30] MEDS: POLYETHYLENE (MIRALAX) 17 GM PACK PO SCH (08:10)
[2023-08-30] MEDS: DOCUSATE SODIUM 100 MG CAP PO SCH (08:10)
[2023-08-30] MEDS: ASPIRIN 81 MG ECTAB PO SCH (08:10)
[2023-08-30] MEDS: LANTUS PER UNIT CHARGE SQ SCH (08:11)
[2023-08-30] MEDS: FLUTICASONE PROPIONATE NA SPR 16 GM BTL SCH (08:11)
[2023-08-30 08:33] LABS: Estimated Average Glucose 68 mg/dl; Hemoglobin A1C < 4.0 % (4.5-5.6)
--- NOTE | 2023-08-30 10:03 | Gastrointestinal Consultation ---
Date of Consultation August 30, 2023 Assessment & Plan (1) Symptomatic anemia: Anemia w/o obvious gross GI bleeding She did have a 0.8 pt decrease in her Hb in the past 2 wks, then another 0.3 point downward drift since arrival here yesterday - not significant. Plan Supportive care, consider transfusion. Moderate fecal retention, recommend a stimulant laxative here (is ordered prn) in addition to daily Miralax that is ordered. Our office will reach out to her again to arrange OP EGD/Colonoscopy. Supervising Physician Co-Signing Physician Notes I have seen and examined the patient and agree with pe and plan as documented. No overt gi bleeding noted Macrocytic anemia on review. OP scopes would encouraged as have been attempted in the past. History of Present Illness Reason for Consultation: Concern for GI Bleed Requesting Physician: Marline Spencer PA-C Attending Physician: Don Baig MD History of Present Illness Ms. Mike Orona is a 68 yr old female pt of Dr. Macdonald w a hx of CVA (on Plavix/ASA), HTN, CREST, Hypothyroidism, DM-2 who presented to the ED who is known to our GI group because she was seen in consult when she was hospitalized here at [facility] Aug 10->Aug 16 for symptomatic anemia at which time, her Hb was 6.1 and she received one unit of RBCs, as well as iron transfusions. Her Hb on discharge 2 wks ago was 8.3. She returned to the ED yesterday for weakness and Hb was 7.5. With IV hydration, it decreased overnight to 7/2. When asked about GI bleeding, she tells me that 2 days ago, she saw bright red blood on her diaper (indicating with her hand gestures about 1 1/2 inch spot). She has not had any N/V/abd pain/Constipation or diarrhea and has not had any black BMs or blood mixed in the BMs. On exam, she is awake, alert, oriented, hemodynamically stable, abdomen non tender and non distended. Digital rectal exam w return of brown/loose stool. Most recent colonoscopy was in 2020 w int/ext hemorrhoids, otherwise normal. She also underwent prior EGD/Colonoscopy in 2019 for iron deficiency anemia w findings of gastritis, internal hemorrhoids. A review of her OP records shows that EGD/Colonoscopy are ordered to be done as an OP and our schedulers have called her on 08/07 and 08/27 leaving message but the procedures are not yet scheduled. Allergies Allergy/AdvReac Type Severity Reaction Status Date / Time clarithromycin AdvReac Unknown FEEL WEIRD Verified 08/23/23 14:29 Home Medications Medication Instructions Recorded Confirmed Type atorvastatin 80 mg tablet 80 mg PO HS 07/14/18 08/29/23 History bisacodyl 5 mg tablet,delayed 5 mg PO HS PRN Constipation 07/14/18 08/29/23 History release (Dulcolax (bisacodyl)) docusate calcium 240 mg capsule 240 mg PO DAILY PRN Constipation 07/14/18 08/29/23 History (Stool Softener (docusate calcium)) donepezil 10 mg tablet 10 mg PO HS 07/14/18 08/29/23 History ezetimibe 10 mg tablet 10 mg PO QAM 07/14/18 08/29/23 History ferrous sulfate 325 mg (65 mg 650 mg PO QAM 07/14/18 08/29/23 History iron) tablet loratadine 10 mg tablet (Claritin) 10 mg PO HS PRN allergies 07/14/18 08/29/23 History metformin 500 mg tablet,extended 1,000 mg PO BID 07/14/18 08/29/23 History release 24 hr mirtazapine 30 mg tablet 30 mg PO HS 07/14/18 08/29/23 History ropinirole 0.5 mg tablet 0.5 mg PO HS 07/14/18 08/29/23 History trazodone 50 mg tablet 50 mg PO HS PRN Pain 07/14/18 08/29/23 History venlafaxine 75 mg tablet 75 mg PO QAM 07/14/18 08/29/23 History insulin glargine 100 unit/mL (3 24 unit subcut QAM 05/12/19 08/29/23 History mL) subcutaneous pen (Basaglar MeganikPen U-100 Insulin) clopidogrel 75 mg tablet (Plavix) 75 mg PO QAM 08/25/19 08/29/23 History aspirin 81 mg capsule 81 mg PO DAILY 07/31/23 08/29/23 History dulaglutide 0.75 mg/0.5 mL 0.75 mg subcut WK 07/31/23 08/29/23 History subcutaneous pen injector (Trulicity) fluticasone propionate 50 2 spray intranasal DAILY 07/31/23 08/29/23 History mcg/actuation nasal spray,suspension gabapentin 300 mg capsule 300 mg PO BID 07/31/23 08/29/23 History levothyroxine 50 mcg tablet 50 mcg PO DAILY 07/31/23 08/29/23 History pantoprazole 40 mg tablet,delayed 40 mg PO QAM 07/31/23 08/29/23 History release cyanocobalamin (vitamin B-12) 500 1,000 mcg (2 x 500 mcg) PO QAM #30 08/16/23 08/29/23 Rx mcg tablet tabs diclofenac sodium 1 % topical gel 2 g EXT TID #50 grams 08/16/23 08/29/23 Rx (Voltaren Arthritis Pain) folic acid 1 mg tablet 1 mg PO QAM #3 tabs 08/16/23 08/29/23 Rx Patient History Medical History Generalized weakness Generalized weakness Restless leg syndrome Hypertension Vascular disease Mood disorder History of CVA with residual deficit approx 7 yrs > H/o L MCA stroke during attempted L SCA stenting. Has residual dysphagia Gastroparesis Esophagitis Carotid stenosis Right carotid artery 70 to 90% stenosis of internal carotid, left carotid artery 50 to 69% Hyperlipidemia DJD (degenerative joint disease), lumbar DM type 2 (diabetes mellitus, type 2) IDDM Hypothyroidism PVD (peripheral vascular disease) CREST syndrome Anemia Surgical History History of cataract surgery left History of tooth extraction Hx of esophagogastroduodenoscopy Hx of colonoscopy H/O foot surgery right History of hysterectomy History of spinal fusion lumbar S/P appendectomy (10/11/12) Family History Mother Breast cancer Uterine cancer Father Lung cancer Emphysema/COPD Social History Smoking Status: Never smoker Second Hand Exposure: No; Do You Dip or Chew Tobacco: No; Hx Alcohol Use: No Hx Substance Use: No Preferred Language: Romansh Communication Ability: Effective Airplane Inspector Required: No Beliefs That Will Affect Care: None marital status: Single Current Living Situation: Alone and Other Current Living Situation Comment: has caregivers How many Children do You have: 1 Other Information That Helps Us Care for You: No Feels Safe at Home: Yes Safety Concerns: Feels Safe At This Time Assistive Devices: Walker Review of Systems Review of Systems: ROS: Gen: + Fatigue, weakness. Denies fevers or weight loss Eyes: No eye redness, or pain, no recent vision changes Resp: No SOB, no cough Cardio: No palpitations/irregular beats, no chest pain GI: No abdominal pain, no nausea/vomiting : Denies pain on urination Skin: No jaundice, itching or new rashes Physical Exam Constitutional: Is awake, alert, oriented, comfortble, appears debilitated from the CVA and slow sl mumbled speech but able to answer questions. Eyes: PERRL, conjunctivae normal, anicteric sclerae ENMT: external ear and nose normal, oropharynx normal Neck: trachea midline, no thyromegaly Respiratory: normal respiratory effort, lungs clear to auscultation Cardiovascular: RRR, no murmur, no edema Gastrointestinal (Abdomen): normal bowel sounds, soft, nontender, no hepatosplenomegaly Rectal exam: external inspection w/o lesions or visible hemorrhoids, DAKSHA w/o masses and with return of loose brown stool. Musculoskeletal: no cyanosis or clubbing, extremities motor strength 5/5 Skin: no rashes, warm and dry Neurologic: one sided weakness, slow word finding Psychiatric: A+Ox3, euthymic affect Lymphatic: no cervical or axillary lymphadenopathy Results & Data Vital Signs (Past 12 Hours) Vital Signs Temp Pulse Pulse Resp BP Pulse Ox O2 Del Method 08/30/23 09:00 Room Air 08/30/23 07:42 36.4 C L 91 H 18 124/72 95 Room Air 08/30/23 07:00 83 08/30/23 03:08 35.8 C L 102 H 18 114/57 L 90 Room Air 08/29/23 23:44 81 08/29/23 23:02 36.7 C 71 18 121/69 95 Room Air Laboratory Results WBC 4, Hb 7.2, Hct 23, Plts 273, Na 137, K 4.1, Cl 105, CO2 29, BUN 15, Cr 0.75, glucose 85 Diagnostic Findings CTAP w IV contrast on 08/29/23: 1. Mild bladder wall thickening, unchanged. Recommend correlation with urinalysis to exclude a cystitis. 2. No bowel wall thickening or obstruction. 3. Distended gallbladder, unchanged. No gallbladder wall thickening. 4. Mild hepatic steatosis. 5. No hydronephrosis. 6. Mild upper abdominal lymphadenopathy, unchanged. The prominent distal paraesophageal lymph nodes have slightly decreased in size. 7. Moderate fecal retention.
--- NOTE | 2023-08-30 12:42 | Hospitalist Progress Note ---
Date of Service August 30, 2023 Assessment & Plan (1) Generalized weakness: Plan: Presented with generalized weakness and minimal shortness of breath on exertion Likely secondary to low hemoglobin Doubt any infection UA does not suggest infection and blood cultures so far negative Will continue ertapenem for 48 hours empiric consult PT/OT Acute on chronic macrocytic anemia *stable Anti-lukasz antibody Iron deficiency anemia B12 deficiency -No evidence of GI bleed, no hematemesis and melena -History of iron deficiency, on chronic supplementation --Anemia labs during recent admission not suggestive of hemolysis, DIC, myelodysplasia -Smear on recent admission consistent with anemia (chronic disease, nutritional deficiencies, renal disease) -During recent admission received S/p 1 Unit lukasz negative blood, 3 days of IV iron. Repeat anemia panel WNL; however given recent transfusions not entirely accurate Received venofer 300mg IV x 1 Type and cross 2 units, pt with very rare blood, consent obtained Blood consent was obtained from the patient as delegated by Dr. Bermudez. Risks and benefits were explained. All questions were answered, and the patient was offered the opportunity to discuss with attending physician and declined. consulted during the hospitalization; Recommended EGD as outpatient. Will have 2 units of blood available in [place] and those are on the way to come to [place] Will give blood transfusion when it arrives (2) Macrocytic anemia: (3) History of CVA with residual deficit: Plan: Continue Plavix (4) DM type 2 (diabetes mellitus, type 2): Plan This is a 64-year-old female who has significant PMH of DM II on insulin, hx of CVA with residual aphasia/R sided weakness, carotid artery stenosis, L subclavian occlusion, HTN, HLD, COPD, Hypothyroidism, GERD, Scleroderma/CREST syn, Mood disorder, Depression with anxiety who presents to [facility] ED secondary to overall feeling weak. 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 Large area of encephalomalacia within the left MCA territory compatible with chronic infarct(s), increased in size compared to the 2018 comparison. Fall precautions, PT/OT Continue statin, ASA Hold plavix in a.m. until re assessed by a.m. prior and repeat H/H obtained, res ume as soon as able and if no procedure to be performed No evidence of GI bleed and will restart Plavix DM type 2 (diabetes mellitus, type 2) A1c 5.3 in Feb 2023 Hold home PO Basal/bolus insulin per protocol while in-patient BSG checks AC HS Hx of Hypertension previously on losartan, was D/C at last hospital stay due to low BP monitor Hypothyroidism Continue levothyroxine CREST syndrome Has some chronic skin lesions. Not on medications DVT Ppx: SCDs for now Code status: FULL PCP: Renae Dispo: Admitted to [facility]. Admission and Anticipated Discharge Date Admission Date: August 29, 2023 Subjective 08/30/2023 The patient was seen and examined in medical telemetry unit She has been complaining of weakness and tiredness with minimal shortness of breath with exertion She does not have any fever and chills, any abdominal pain, nausea and or vomiti ng, no problem with urine or bowel habit Did not have any black stool or any history of blood vomiting or coffee-ground vomiting Review of Systems Review of Systems: All systems reviewed and are unremarkable except as noted below Physical Exam Physical Exam: Lying in bed comfortably Constitutional: + ill appearing and average body habitus Eyes: PERRL, conjunctivae normal, anicteric sclerae ENMT: external ear and nose normal, oropharynx normal Neck: trachea midline, no thyromegaly Respiratory: no respiratory distress Auscultation: lungs clear to auscultation bilaterally Cardiovascular: Rate/Rhythm: regular rate and regular rhythm; not tachycardic Heart Sounds: normal S1, normal S2 and + murmur (Flow murmurs) Extremities: no edema Gastrointestinal (Abdomen): Inspection/Auscultation: normal bowel sounds; abdomen not distended Percussion/Palpation: abdomen soft; abdomen nontender Musculoskeletal: No acute arthritis involving any of the joint Neurologic: Alert, awake and oriented x 3. Generally weak no focal neurodeficit Lymphatic: no cervical or axillary lymphadenopathy Results & Data Results & Data Vital Signs (Past 12 Hours) Vital Signs Temp Pulse Pulse Resp BP Pulse Ox O2 Del Method 08/30/23 11:37 36.4 C L 91 H 16 138/77 95 Room Air 08/30/23 09:00 Room Air 08/30/23 07:42 36.4 C L 91 H 18 124/72 95 Room Air 08/30/23 07:00 83 08/30/23 03:08 35.8 C L 102 H 18 114/57 L 90 Room Air Laboratory Results Short CBC 08/29/23 08/30/23 Range/Units 19:39 06:16 WBC 4.96 (4.8-10.8) K/ul Hgb 7.3 L 7.2 L (12.0-16.0) g/dl Hct 24.5 L 23.6 L (37.0-47.0) % Plt Count 273 (130-400) K/uL BMP 08/30/23 06:16 Sodium 137 Potassium 4.1 Chloride 105 Carbon Dioxide 29 BUN 15 Creatinine 0.75 Glucose 77 Calcium 8.2 L Liver Function 08/30/23 Range/Units 06:16 Total Bilirubin 0.6 (0.2-1.0) mg/dl AST 24 (13-39) U/L ALT 16 (7-52) U/L Alkaline Phosphatase 54 (34-104) U/L Albumin 3.5 (3.4-5.0) gm/dl Urine 08/29/23 Range/Units 17:03 Urine Color Yellow Urine Appearance Clear (Clear) Urine pH 7.0 (4.5-7.5) Ur Specific Kramer 1.024 (1.000-1.030) Urine Protein Negative (Negative) Urine Glucose (UA) Negative (Negative) Medications Administered Current Inpatient Medications Acetaminophen (Acetaminophen 325 Mg Tab) 650 mg PO Q4H PRN PRN Reason: Pain or Fever Stop: 09/28/23 17:53 Al Hydrox/Mg Hydrox/Simethicone (Aluminum/Magnesium Susp 30 Ml Udc) 15 ml PO Q4H PRN PRN Reason: Dyspepsia Stop: 09/28/23 17:53 Aspirin (Aspirin 81 Mg Ectab) 81 mg PO DAILY [place] Stop: 09/29/23 08:59 Last Admin: 08/30/23 08:10 Dose: 81 mg Atorvastatin Calcium (Atorvastatin 40 Mg Tab) 80 mg PO HS [place] Stop: 09/28/23 20:59 Last Admin: 08/29/23 20:27 Dose: 80 mg Cyanocobalamin (Cyanocobalamin (B-12) 500 Mcg Tablet) 1,000 mcg PO QAM [facility] Stop: 09/29/23 08:59 Last Admin: 08/30/23 08:09 Dose: 1,000 mcg Dextrose (Dextrose 50% 50 Ml Syringe) 25 - 50 ml IV UD PRN; Protocol PRN Reason: Hypoglycemia Protocol Stop: 09/28/23 17:53 Docusate Sodium (Docusate Sodium 100 Mg Cap) 100 mg PO DAILY [facility] Stop: 09/29/23 08:59 Last Admin: 08/30/23 08:10 Dose: 100 mg Donepezil HCl (Donepezil Hcl 10 Mg Tab) 10 mg PO HS [facility] Stop: 09/28/23 20:59 Last Admin: 08/29/23 20:28 Dose: 10 mg Ezetimibe (Ezetimibe 10 Mg Tab) 10 mg PO QAM [facility] Stop: 09/29/23 08:59 Last Admin: 08/30/23 08:09 Dose: 10 mg Ferrous Sulfate (Ferrous Sulfate 325 Mg Tab) [facility] [place] Stop: 09/29/23 08:59 Last Admin: 08/30/23 08:09 Dose: 650 mg Fluticasone Propionate (Fluticasone Propionate Na Spr 16 Gm Btl) 2 sprays NA DAILY [facility] Stop: 09/29/23 08:59 Last Admin: 08/30/23 08:11 Dose: 2 sprays Folic Acid (Folic Acid 1 Mg Tab) 1 mg PO QAM [facility] Stop: 09/29/23 08:59 Last Admin: 08/30/23 08:09 Dose: 1 mg Gabapentin (Gabapentin 300 Mg Cap) 300 mg PO BID [facility] Stop: 09/28/23 20:59 Last Admin: 08/30/23 08:08 Dose: 300 mg Glucagon (Glucagon For Inj 1 Mg Vial) 1 mg SQ UD PRN; Protocol PRN Reason: Hypoglycemia Protocol Stop: 09/28/23 17:53 Glucose (Glucose 40% Gel 15 Gm Tube) 15 - 30 gm PO UD PRN; Protocol PRN Reason: Hypoglycemia Protocol Stop: 09/28/23 17:53 Glucose (Glucose 10 Tab/Tube) 4 - 8 tab PO UD PRN; Protocol PRN Reason: Hypoglycemia Treatment Stop: 09/28/23 17:53 Insulin Aspart (Insulin Aspart Per Unit Charge) 0 units [facility] Stop: 09/28/23 20:59 Last Admin: 08/30/23 08:10 Dose: Not Given Insulin Glargine (Lantus Per Unit Charge) 0 - 20 units SQ DAILY [facility] Stop: 09/29/23 08:59 Last Admin: 08/30/23 08:11 Dose: Not Given Levothyroxine Sodium (Levothyroxine Sodium 50 Mcg Tablet) 50 mcg PO DAILYBB [facility] Stop: 09/29/23 06:29 Last Admin: 08/30/23 05:17 Dose: 50 mcg Magnesium Hydroxide (Magnesium Hydroxide Susp 30 Ml Udc) 30 ml PO Q12H PRN PRN Reason: Constipation Stop: 09/28/23 17:53 Mirtazapine (Mirtazapine Tab 15 Mg Tab) 30 mg PO HS [facility] Stop: 09/28/23 20:59 Last Admin: 08/29/23 20:28 Dose: 30 mg Miscellaneous (Carbohydrates For Hypoglycemia ) 15 - 30 gm PO UD PRN PRN Reason: Hypoglycemia Protocol Stop: 09/28/23 17:53 Pantoprazole Sodium (Pantoprazole 40 Mg Tab) 40 mg PO QAM [facility] Stop: 09/29/23 08:59 Last Admin: 08/30/23 08:10 Dose: 40 mg Polyethylene Glycol (Polyethylene (Miralax) 17 Gm Pack) 17 gm PO DAILY PRN PRN Reason: Constipation Stop: 09/28/23 17:53 Polyethylene Glycol (Polyethylene (Miralax) 17 Gm Pack) 17 gm PO DAILY [place] Stop: 09/29/23 08:59 Last Admin: 08/30/23 08:10 Dose: Not Given Ropinirole HCl (Ropinirole Hcl 0.25 Mg Tablet) 0.5 mg PO HS [facility] Stop: 09/28/23 20:59 Last Admin: 08/29/23 20:28 Dose: 0.5 mg Venlafaxine HCl (Venlafaxine Hcl 37.5 Mg Tab) 75 mg PO QAM [facility] Stop: 09/29/23 08:59 Last Admin: 08/30/23 08:08 Dose: 75 mg (4) DM type 2 (diabetes mellitus, type 2) Diabetes mellitus complication status: without complication Diabetes mellitus group home insulin use: unspecified group home insulin use status Qualified Code(s): E11.9 - Type 2 diabetes mellitus without complications
[2023-08-30] MEDS: ONDANSETRON INJ 2 MG/ML 2 ML VIAL IV PRN (23:16)
--- NOTE | 2023-08-31 05:34 | Electrocardiogram Report ---
Test Reason : Blood Pressure : / mmHG Vent. Rate : 081 BPM Atrial Rate : 081 BPM P-R Int : 148 ms QRS Dur : 068 ms QT Int : 372 ms P-R-T Axes : 070 051 179 degrees QTc Int : 432 ms Normal sinus rhythm Nonspecific ST and T wave abnormality Abnormal ECG When compared with ECG of 29-AUG-2023 09:15, QT has shortened Confirmed by Magan Moore ([id number]) on 08/31/2023 5:33:40 AM Referred By: REFERRED SELF Confirmed By:Magan Moore
--- NOTE | 2023-08-31 08:55 | Communication Note ---
Date of Service: August 31, 2023 Contacted by nursing. Family insistent on IP EGD/Colonoscopy. They feel she will continue to need admissions for anemia until EGD/Colonoscopy are completed. Hb has continued to slowly drift down (today 7.2) and she has required transfusion during prior admission. No gross bleeding (except pt report of bright red spot on her diaper once a few days prior to admission). Hold Plavix. Prior EGD/Colonoscopy in 2019 for anemia w/o GI source. EGD/Colonoscopy planned for Sunday09/03/23 by Krista Pritchard. Prep/diet orders placed.
[2023-08-31 09:07] LABS: Basophils # (auto) 0.05 K/uL (0.00-0.20); Basophils % (auto) 0.7 %; Eosinophils # (auto) 0.08 K/uL (0.00-0.50); Eosinophils % (auto) 1.2 %; Hematocrit (blood only) 23.4 % (37.0-47.0); Immature Granulocytes # (auto) 0.05 K/uL (0.01-0.20); Immature Granulocytes % (auto) 0.7 %; Lymphocytes # (auto) 1.64 K/uL (1.20-3.40); Lymphocytes % (auto) 23.9 %; Mean Corpuscular Hgb Conc 29.9 g/dL (32.0-36.0); Mean Corpuscular Volume 103.5 fL (80.0-100.0); Mean Platelet Volume 10.7 fL (9.4-12.4); Monocytes # (auto) 0.86 K/uL (0.11-0.59); Monocytes % (auto) 12.5 %; Neutrophils # (auto) 4.18 K/uL (1.40-6.50); Nucleated RBC # (auto) 0.26 K/uL (0.00-0.12); Nucleated RBC % (auto) 3.8 %; Platelet Count 289 K/uL (130-400); RDW Coefficient of Variation 23.2 % (11.5-14.5); RDW Standard Deviation 87.3 fL (36.4-46.3); Red Blood Count 2.26 M/uL (4.20-5.40); White Blood Count 6.86 K/ul (4.8-10.8)
[2023-08-31 09:21] LABS: Albumin Level 3.6 gm/dl (3.4-5.0); Bilirubin,Total 0.6 mg/dl (0.2-1.0); Calcium 8.4 mg/dl (8.6-10.3); Potassium 4.2 mmol/L (3.5-5.1)
[2023-08-31 09:27] LABS: Albumin Globulin Ratio 1.4 (0.9-2); BUN Creatinine Ratio 22.4 (10-20); Creatinine Clr Calc Pharmacy 63.8 ml/min; Est GFR (African American) 93.4 ml/min; Est GFR (Non-African American) 80.6 ml/min; Globulin 2.5 gm/dl (2.5-4.0); Total Protein 6.1 gm/dl (6.0-8.3)
[2023-08-31 09:28] LABS: Anisocytosis Present; Basophilic Stippling 1+; Polychromasia 2+; Tear Drop Cells 1+
--- NOTE | 2023-08-31 11:49 | Hospitalist Progress Note ---
Date of Service August 31, 2023 Assessment & Plan (1) Generalized weakness: Plan: Presented with generalized weakness and minimal shortness of breath on exertion Likely secondary to low hemoglobin Doubt any infection UA does not suggest infection and blood cultures so far negative Will continue ertapenem for 48 hours empiric consult PT/OT-recommended to continue PT following discharge Acute on chronic macrocytic anemia *stable Anti-lukasz antibody Iron deficiency anemia B12 deficiency -No evidence of GI bleed, no hematemesis and melena -History of iron deficiency, on chronic supplementation --Anemia labs during recent admission not suggestive of hemolysis, DIC, myelodysplasia -Smear on recent admission consistent with anemia (chronic disease, nutritional deficiencies, renal disease) -During recent admission received S/p 1 Unit lukasz negative blood, 3 days of IV iron. -Hemoglobin dropped to 7.0 without any evidence of further bleeding -She will have colonoscopy on Sunday as per the GI -She remains otherwise stable but very weak and lethargic Repeat anemia panel WNL; however given recent transfusions not entirely accurate Received venofer 300mg IV x 1 Type and cross 2 units, pt with very rare blood, consent obtained Blood consent was obtained from the patient as delegated by Dr. Bermudez. Risks and benefits were explained. All questions were answered, and the patient was offered the opportunity to discuss with attending physician and declined. consulted during the hospitalization; Recommended EGD as outpatient. Will have 2 units of blood available in [place] and those are on the way to come to [place] Discussed with the GI and will have an endoscopy on Sunday-to evaluate any source of bleeding (2) Macrocytic anemia: (3) History of CVA with residual deficit: Plan: Continue Plavix Plavix has been on hold since 29 August Will continue aspirin (4) DM type 2 (diabetes mellitus, type 2): Plan This is a 64-year-old female who has significant PMH of DM II on insulin, hx of CVA with residual aphasia/R sided weakness, carotid artery stenosis, L subclavia n occlusion, HTN, HLD, COPD, Hypothyroidism, GERD, Scleroderma/CREST syn, Mood disorder, Depression with anxiety who presents to [facility] ED secondary to overall feeling weak. 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 Large area of encephalomalacia within the left MCA territory compatible with chronic infarct(s), increased in size compared to the 2018 comparison. Fall precautions, PT/OT Continue statin, ASA Hold plavix in a.m. until re assessed by a.m. prior and repeat H/H obtained, resume as soon as able and if no procedure to be performed No evidence of GI bleed but hemoglobin dropped to 7.0 as of 08/31/2023 Plavix remains on hold since 08/29/2023 Will have colonoscopy on Sunday and will hold Plavix and continue aspirin DM type 2 (diabetes mellitus, type 2) A1c 5.3 in Feb 2023 Hold home PO Basal/bolus insulin per protocol while in-patient BSG checks AC HS Repeat hemoglobin A1c less than 4 on 08/30/2023 Hx of Hypertension previously on losartan, was D/C at last hospital stay due to low BP monitor Hypothyroidism Continue levothyroxine CREST syndrome Has some chronic skin lesions. Not on medications DVT Ppx: SCDs for now Code status: FULL PCP: Renae Dispo: Admitted to [place]. Admission and Anticipated Discharge Date Admission Date: August 29, 2023 Subjective 08/30/2023 The patient was seen and examined in medical telemetry unit She has been complaining of weakness and tiredness with minimal shortness of breath with exertion She does not have any fever and chills, any abdominal pain, nausea and or vomiting, no problem with urine or bowel habit Did not have any black stool or any history of blood vomiting or coffee-ground vomiting 08/31/2023 The patient was seen and examined in medical telemetry unit She has been very weak and lethargic Has had a bowel movement without any blood in it Still awaiting blood transfusion Review of Systems Review of Systems: All systems reviewed and are unremarkable except as noted below Physical Exam Physical Exam: Sitting on a chair without any acute distress but looked very pale and generally weak Constitutional: + ill appearing and average body habitus Eyes: PERRL, conjunctivae normal, anicteric sclerae ENMT: external ear and nose normal, oropharynx normal Neck: trachea midline, no thyromegaly Respiratory: no respiratory distress Auscultation: lungs clear to auscultation bilaterally Cardiovascular: Rate/Rhythm: regular rate and regular rhythm; not tachycardic Heart Sounds: normal S1, normal S2 and + murmur (Flow murmurs) Extremities: no edema Gastrointestinal (Abdomen): Inspection/Auscultation: normal bowel sounds; abdomen not distended Percussion/Palpation: abdomen soft; abdomen nontender Musculoskeletal: All systems reviewed and are unremarkable except as noted below Neurologic: Alert, awake and oriented x 3. Generally very weak Lymphatic: no cervical or axillary lymphadenopathy Results & Data Results & Data Vital Signs (Past 12 Hours) Vital Signs Temp Pulse Resp BP Pulse Ox O2 Del Method 08/31/23 08:06 36.7 C 86 17 121/73 95 Room Air 08/31/23 04:26 36.6 C 84 18 121/65 94 Room Air 08/31/23 00:03 Room Air 08/30/23 23:49 37.2 C 89 18 124/75 96 Room Air Laboratory Results Short CBC 08/31/23 Range/Units 08:16 WBC 6.86 (4.8-10.8) K/ul Hgb 7.0 L (12.0-16.0) g/dl Hct 23.4 L (37.0-47.0) % Plt Count 289 (130-400) K/uL BMP 08/31/23 08:16 Sodium 134 L Potassium 4.2 Chloride 103 Carbon Dioxide 27 BUN 17 Creatinine 0.76 Glucose 95 Calcium 8.4 L Liver Function 08/31/23 Range/Units 08:16 Total Bilirubin 0.6 (0.2-1.0) mg/dl AST 34 (13-39) U/L ALT 18 (7-52) U/L Alkaline Phosphatase 57 (34-104) U/L Albumin 3.6 (3.4-5.0) gm/dl Medications Administered Current Inpatient Medications Acetaminophen (Acetaminophen 325 Mg Tab) 650 mg PO Q4H PRN PRN Reason: Pain or Fever Stop: 09/28/23 17:53 Al Hydrox/Mg Hydrox/Simethicone (Aluminum/Magnesium Susp 30 Ml Udc) 15 ml PO Q4H PRN PRN Reason: Dyspepsia Stop: 09/28/23 17:53 Aspirin (Aspirin 81 Mg Ectab) 81 mg PO DAILY [facility] Stop: 09/29/23 08:59 Last Admin: 08/31/23 08:53 Dose: 81 mg Atorvastatin Calcium (Atorvastatin 40 Mg Tab) 80 mg PO HS [facility] Stop: 09/28/23 20:59 Last Admin: 08/30/23 21:53 Dose: 80 mg Cyanocobalamin (Cyanocobalamin (B-12) 500 Mcg Tablet) 1,000 mcg PO QAM [facility] Stop: 09/29/23 08:59 Last Admin: 08/31/23 08:53 Dose: 1,000 mcg Dextrose (Dextrose 50% 50 Ml Syringe) 25 - 50 ml IV UD PRN; Protocol PRN Reason: Hypoglycemia Protocol Stop: 09/28/23 17:53 Docusate Sodium (Docusate Sodium 100 Mg Cap) 100 mg PO DAILY [facility] Stop: 09/29/23 08:59 Last Admin: 08/31/23 08:53 Dose: 100 mg Donepezil HCl (Donepezil Hcl 10 Mg Tab) 10 mg PO HS [facility] Stop: 09/28/23 20:59 Last Admin: 08/30/23 21:53 Dose: 10 mg Ezetimibe (Ezetimibe 10 Mg Tab) 10 mg PO QAM [facility] Stop: 09/29/23 08:59 Last Admin: 08/31/23 08:53 Dose: 10 mg Ferrous Sulfate (Ferrous Sulfate 325 Mg Tab) 650 mg PO QAM [facility] Stop: 09/29/23 08:59 Last Admin: 08/31/23 08:52 Dose: 650 mg Fluticasone Propionate (Fluticasone Propionate Na Spr 16 Gm Btl) 2 sprays NA DAILY [facility] Stop: 09/29/23 08:59 Last Admin: 08/30/23 08:11 Dose: 2 sprays Folic Acid (Folic Acid 1 Mg Tab) 1 mg PO QAM [facility] Stop: 09/29/23 08:59 Last Admin: 08/31/23 08:52 Dose: 1 mg Gabapentin (Gabapentin 300 Mg Cap) 300 mg PO BID [facility] Stop: 09/28/23 20:59 Last Admin: 08/31/23 08:52 Dose: 300 mg Glucagon (Glucagon For Inj 1 Mg Vial) 1 mg SQ UD PRN; Protocol PRN Reason: Hypoglycemia Protocol Stop: 09/28/23 17:53 Glucose (Glucose 40% Gel 15 Gm Tube) 15 - 30 gm PO UD PRN; Protocol PRN Reason: Hypoglycemia Protocol Stop: 09/28/23 17:53 Glucose (Glucose 10 Tab/Tube) 4 - 8 tab PO UD PRN; Protocol PRN Reason: Hypoglycemia Treatment Stop: 09/28/23 17:53 Insulin Aspart (Insulin Aspart Per Unit Charge) 0 units SC ACHS [facility] Stop: 09/28/23 20:59 Last Admin: 08/31/23 09:19 Dose: 2 units Insulin Glargine (Lantus Per Unit Charge) 0 - 20 units SQ DAILY [facility] Stop: 09/29/23 08:59 Last Admin: 08/31/23 08:52 Dose: Not Given Levothyroxine Sodium (Levothyroxine Sodium 50 Mcg Tablet) 50 mcg PO DAILYBB [facility] Stop: 09/29/23 06:29 Last Admin: 08/31/23 05:31 Dose: 50 mcg Magnesium Hydroxide (Magnesium Hydroxide Susp 30 Ml Udc) 30 ml PO Q12H PRN PRN Reason: Constipation Stop: 09/28/23 17:53 Mirtazapine (Mirtazapine Tab 15 Mg Tab) 30 mg PO HS [facility] Stop: 09/28/23 20:59 Last Admin: 08/30/23 21:54 Dose: 30 mg Miscellaneous (Carbohydrates For Hypoglycemia ) 15 - 30 gm PO UD PRN PRN Reason: Hypoglycemia Protocol Stop: 09/28/23 17:53 Ondansetron HCl (Ondansetron Inj 2 Mg/Ml 2 Ml Vial) 4 mg IV Q6H PRN PRN Reason: Nausea And Vomiting Stop: 09/29/23 23:06 Last Admin: 08/30/23 23:16 Dose: 4 mg Pantoprazole Sodium (Pantoprazole 40 Mg Tab) 40 mg PO QAM [facility] Stop: 09/29/23 08:59 Last Admin: 08/31/23 08:52 Dose: 40 mg Polyethylene Glycol (Polyethylene (Miralax) 17 Gm Pack) 17 gm PO DAILY PRN PRN Reason: Constipation Stop: 09/28/23 17:53 Polyethylene Glycol (Polyethylene (Miralax) 17 Gm Pack) 17 gm PO DAILY [facility] Stop: 09/29/23 08:59 Last Admin: 08/30/23 08:10 Dose: Not Given Polyethylene Glycol/Electrolytes (Lavage Solution 4000ml) 8 dose PO TODAY@0300,1700 [facility] Stop: 09/03/23 05:00 Ropinirole HCl (Ropinirole Hcl 0.25 Mg Tablet) 0.5 mg PO HS [facility] Stop: 09/28/23 20:59 Last Admin: 08/30/23 21:54 Dose: 0.5 mg Venlafaxine HCl (Venlafaxine Hcl 37.5 Mg Tab) 75 mg PO QAM [facility] Stop: 09/29/23 08:59 Last Admin: 08/31/23 08:52 Dose: 75 mg (4) DM type 2 (diabetes mellitus, type 2) Diabetes mellitus complication status: without complication Diabetes mellitus usp insulin use: unspecified usp insulin use status Qualified Code(s): E11.9 - Type 2 diabetes mellitus without complications
--- NOTE | 2023-09-01 07:17 | Hospitalist Progress Note ---
Date of Service September 01, 2023 Assessment & Plan (1) Generalized weakness: (2) Macrocytic anemia: (3) History of CVA with residual deficit: (4) DM type 2 (diabetes mellitus, type 2): Plan is a 64-year-old female who has significant PMH of DM II on insulin, hx of CVA with residual aphasia/R sided weakness, carotid artery stenosis, L subclavian occlusion, HTN, HLD, COPD, Hypothyroidism, GERD, Scleroderma/CREST syn, Mood disorder, Depression with anxiety who presents to [facility] ED on 08/29 secondary to overall feeling weak once more. Patient recently admitted on 07/31-08/17 for weakness, found to be septic with UTI and acutely anemic. Course complicated and transfusion delayed given antivel antibody presence, which is notably very rare and finding a unit is difficult-- [facility] attempted to locate a unit for patient from [place] at that time. s/p 1 Unit with robust response. Patient was optimized with IV iron, b12 IM, folate. This admission, GI on consult and planning to scope on Sunday to assess for any GI losses. #Acute on chronic macrocytic anemia *stable #Anti-lukasz antibody #Iron deficiency anemia #B12 deficiency -IgG +, IgM -< Western blot 23,39,41,45,93 + given patient's anemia and symptoms at presentation will opt for 2 week treatment in addition to IV abx already EOT 08/22 -History of iron deficiency, on chronic supplementation -Hgb 8 on admission, now down trending to 7.0 as of 09/01, -Held Plavix 08/29 -GI consulted No evidence of GI bleed but hemoglobin dropped to 7.0 as of 08/31/2023 Plavix remains on hold since 08/29/2023 Will have colonoscopy on Sunday and will hold Plavix and continue aspirin Discussed with the GI and will have an endoscopy on Sunday-to evaluate any source of bleeding 2 UPRBC in, plan for transfusion 09/01 #General Weakness Presented with generalized weakness and minimal shortness of breath on exertion history of similar presentations with overlapping sepsis, no sepsis this admission Likely secondary to low hemoglobin Doubt any infection UA does not suggest infection and blood cultures so far negative Completed ertapenem for 48 hours empiric consult PT/OT-recommended to continue PT following discharge #Weakness #Prior CVA c/b right hemiparesis and dysarthria #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 Large area of encephalomalacia within the left MCA territory compatible with chronic infarct(s), increased in size compared to the 2018 comparison. Expect this will improve with treatment of infection Fall precautions, PT/OT Continue statin Continue Plavix Plavix has been on hold since 29 August Will continue aspirin #DM type 2 (diabetes mellitus, type 2) A1c 5.3 in Feb 2023; Repeat hemoglobin A1c less than 4 on 08/30/2023, iso anemia Hold home PO meds Basal/bolus insulin per protocol while in-patient BSG checks AC HS #Lyme IgG positive -Denies any history of lyme disease at this time, given concerns on admission will treat -Lyme IgG western positive: bands 23,39,93 positive -Completed 2 week course of doxy BID po EOT 08/22 #COPD IS, add flutter valve albuterol prn Start fluticasone/jacobo. 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 Not on medications DVT Ppx: SCDs for now Code status: FULL PCP: Renae Dispo: Admitted to PCU. Plan for rehab Admission and Anticipated Discharge Date Admission Date: August 29, 2023 Subjective Patient evaluated at bedside Reports feeling weak and exhausted, but otherwise no other acute concerns Blood Units in from [place], to be transfused this am Physical Exam Constitutional: WD/WN, vitals as above pale, tired appearing, but AO4, conversational Respiratory: normal respiratory effort, lungs clear to auscultation Cardiovascular: tachycardic, regularly rhythm Gastrointestinal (Abdomen): normal bowel sounds, soft, nontender, no hepatosplenomegaly Results & Data Results & Data Vital Signs (Past 12 Hours) Vital Signs Temp Pulse Pulse Resp BP BP Pulse Ox 09/01/23 04:28 90 143/76 H 09/01/23 03:46 36.6 C 105 H 12 84/54 L 93 08/31/23 22:46 36.7 C 95 H 18 134/68 91 08/31/23 21:56 95 H 08/31/23 19:30 36.6 C 96 H 18 142/69 H 93 O2 Del Method 09/01/23 04:28 09/01/23 03:46 Room Air 08/31/23 22:46 Room Air 08/31/23 21:56 08/31/23 19:30 Room Air Laboratory Results Short CBC 09/01/23 Range/Units 07:38 WBC 9.23 (4.8-10.8) K/ul Hgb 6.3 L* (12.0-16.0) g/dl Hct 21.3 L (37.0-47.0) % Plt Count 296 (130-400) K/uL BMP 09/01/23 07:38 Sodium 135 L Potassium 3.9 Chloride 103 Carbon Dioxide 29 BUN 15 Creatinine 0.85 Glucose 121 H Calcium 8.1 L Medications Administered Home Medications Medication Instructions Recorded Confirmed Last Taken atorvastatin 80 mg tablet 80 mg PO HS 07/14/18 08/29/23 11/23/21 bisacodyl 5 mg tablet,delayed 5 mg PO HS PRN Constipation 07/14/18 08/29/23 07/13/18 release (Dulcolax (bisacodyl)) docusate calcium 240 mg capsule 240 mg PO DAILY PRN Constipation 07/14/18 08/29/23 07/13/18 (Stool Softener (docusate calcium)) donepezil 10 mg tablet 10 mg PO HS 07/14/18 08/29/23 11/23/21 ezetimibe 10 mg tablet 10 mg PO QAM 07/14/18 08/29/23 08/29/23 ferrous sulfate 325 mg (65 mg 650 mg PO QAM 07/14/18 08/29/23 08/29/23 iron) tablet loratadine 10 mg tablet (Claritin) 10 mg PO HS PRN allergies 07/14/18 08/29/23 11/23/21 metformin 500 mg tablet,extended 1,000 mg PO BID 07/14/18 08/29/23 08/29/23 release 24 hr mirtazapine 30 mg tablet 30 mg PO HS 07/14/18 08/29/23 11/23/21 ropinirole 0.5 mg tablet 0.5 mg PO HS 07/14/18 08/29/23 11/23/21 trazodone 50 mg tablet 50 mg PO HS PRN Pain 07/14/18 08/29/23 10/26/21 venlafaxine 75 mg tablet 75 mg PO QAM 07/14/18 08/29/23 08/29/23 insulin glargine 100 unit/mL (3 24 unit subcut QAM 05/12/19 08/29/23 08/29/23 mL) subcutaneous pen (Basaglar AlbertPen U-100 Insulin) clopidogrel 75 mg tablet (Plavix) 75 mg PO QAM 08/25/19 08/29/23 08/29/23 aspirin 81 mg capsule 81 mg PO DAILY 07/31/23 08/29/23 08/29/23 dulaglutide 0.75 mg/0.5 mL 0.75 mg subcut WK 07/31/23 08/29/23 Unknown subcutaneous pen injector (Trulicity) fluticasone propionate 50 2 spray intranasal DAILY 07/31/23 08/29/23 Unknown mcg/actuation nasal spray,suspension gabapentin 300 mg capsule 300 mg PO BID 07/31/23 08/29/23 08/29/23 levothyroxine 50 mcg tablet 50 mcg PO DAILY 07/31/23 08/29/23 08/29/23 pantoprazole 40 mg tablet,delayed 40 mg PO QAM 07/31/23 08/29/23 08/29/23 release cyanocobalamin (vitamin B-12) 500 1,000 mcg (2 x 500 mcg) PO QAM #30 08/16/23 08/29/23 08/29/23 mcg tablet tabs diclofenac sodium 1 % topical gel 2 g EXT TID #50 grams 08/16/23 08/29/23 Unknown (Voltaren Arthritis Pain) folic acid 1 mg tablet 1 mg PO QAM #3 tabs 08/16/23 08/29/23 08/29/23 Active Medications Generic Name Dose Route Start Last Admin Trade Name Freq PRN Reason Stop Dose Admin Aspirin 81 mg 08/30/23 09:00 08/31/23 08:53 Aspirin 81 Mg Ectab PO 09/29/23 08:59 81 mg DAILY [facility] Administration Atorvastatin Calcium 80 mg 08/29/23 21:00 08/31/23 20:43 Atorvastatin 40 Mg Tab PO 09/28/23 20:59 80 mg HS [facility] Administration Cyanocobalamin 1,000 mcg 08/30/23 09:00 08/31/23 08:53 Cyanocobalamin (B-12) 500 Mcg Tablet PO 09/29/23 08:59 1,000 mcg QAM [facility] Administration Docusate Sodium 100 mg 08/30/23 09:00 08/31/23 08:53 Docusate Sodium 100 Mg Cap PO 09/29/23 08:59 100 mg DAILY [facility] Administration Donepezil HCl 10 mg 08/29/23 21:00 08/31/23 20:44 Donepezil Hcl 10 Mg Tab PO 09/28/23 20:59 10 mg HS [facility] Administration Ezetimibe 10 mg 08/30/23 09:00 08/31/23 08:53 Ezetimibe 10 Mg Tab PO 09/29/23 08:59 10 mg QAM [facility] Administration Ferrous Sulfate 650 mg 08/30/23 09:00 08/31/23 08:52 Ferrous Sulfate 325 Mg Tab PO 09/29/23 08:59 650 mg QAM [facility] Administration Fluticasone Propionate 2 sprays 08/30/23 09:00 08/31/23 09:07 Fluticasone Propionate Na Spr 16 Gm Btl NA 09/29/23 08:59 2 sprays DAILY [facility] Administration Folic Acid 1 mg 08/30/23 09:00 08/31/23 08:52 Folic Acid 1 Mg Tab PO 09/29/23 08:59 1 mg QAM [facility] Administration Gabapentin 300 mg 08/29/23 21:00 08/31/23 20:44 Gabapentin 300 Mg Cap PO 09/28/23 20:59 300 mg BID [facility] Administration Insulin Aspart 0 units 08/29/23 21:00 08/31/23 20:50 Insulin Aspart Per Unit Charge SC 09/28/23 20:59 Not Given ACHS [facility] Insulin Glargine 0 - 20 units 08/30/23 09:00 08/31/23 08:52 Lantus Per Unit Charge SQ 09/29/23 08:59 Not Given DAILY [facility] Levothyroxine Sodium 50 mcg 08/30/23 06:30 09/01/23 06:14 Levothyroxine Sodium 50 Mcg Tablet PO 09/29/23 06:29 50 mcg DAILYBB [facility] Administration Mirtazapine 30 mg 08/29/23 21:00 08/31/23 20:44 Mirtazapine Tab 15 Mg Tab PO 09/28/23 20:59 30 mg HS [facility] Administration Ondansetron HCl 4 mg 08/30/23 23:07 09/01/23 06:38 Ondansetron Inj 2 Mg/Ml 2 Ml Vial IV 09/29/23 23:06 4 mg Q6H PRN Administration Nausea And Vomiting Pantoprazole Sodium 40 mg 08/30/23 09:00 08/31/23 08:52 Pantoprazole 40 Mg Tab PO 09/29/23 08:59 40 mg QAM [facility] Administration Polyethylene Glycol 17 gm 08/30/23 09:00 08/31/23 14:08 Polyethylene (Miralax) 17 Gm Pack PO 09/29/23 08:59 Not Given DAILY [facility] Ropinirole HCl 0.5 mg 08/29/23 21:00 08/31/23 20:45 Ropinirole Hcl 0.25 Mg Tablet PO 09/28/23 20:59 0.5 mg HS [facility] Administration Venlafaxine HCl 75 mg 08/30/23 09:00 08/31/23 08:52 Venlafaxine Hcl 37.5 Mg Tab PO 09/29/23 08:59 75 mg QAM [facility] Administration (4) DM type 2 (diabetes mellitus, type 2) Diabetes mellitus complication status: without complication Diabetes mellitus half-way insulin use: unspecified half-way insulin use status Qualified Code(s): E11.9 - Type 2 diabetes mellitus without complications
[2023-09-01 08:43] LABS: BUN Creatinine Ratio 17.6 (10-20); Calcium 8.1 mg/dl (8.6-10.3); Est GFR (African American) 81.6 ml/min; Est GFR (Non-African American) 70.4 ml/min; Potassium 3.9 mmol/L (3.5-5.1)
[2023-09-01 08:47] LABS: Hematocrit (blood only) 21.3 % (37.0-47.0); Hemoglobin 6.3 g/dl (12.0-16.0); Mean Corpuscular Hemoglobin 30.7 pg (25.0-34.0); Mean Corpuscular Hgb Conc 29.6 g/dL (32.0-36.0); Mean Corpuscular Volume 103.9 fL (80.0-100.0); Mean Platelet Volume 10.4 fL (9.4-12.4); Nucleated RBC # (auto) 0.41 K/uL (0.00-0.12); Nucleated RBC % (auto) 4.4 %; Platelet Count 296 K/uL (130-400); RDW Coefficient of Variation 23.5 % (11.5-14.5); RDW Standard Deviation 89.4 fL (36.4-46.3); Red Blood Count 2.05 M/uL (4.20-5.40); White Blood Count 9.23 K/ul (4.8-10.8)
[2023-09-01] MEDS ORDERED: SODIUM CHLORIDE 0.9% 250 ML IV PRN (09:26)
[2023-09-02 07:05] LABS: Hematocrit (blood only) 27.3 % (37.0-47.0); Hemoglobin 8.5 g/dl (12.0-16.0); Mean Corpuscular Hemoglobin 30.7 pg (25.0-34.0); Mean Corpuscular Hgb Conc 31.1 g/dL (32.0-36.0); Mean Corpuscular Volume 98.6 fL (80.0-100.0); Mean Platelet Volume 10.5 fL (9.4-12.4); Nucleated RBC # (auto) 0.38 K/uL (0.00-0.12); Nucleated RBC % (auto) 3.5 %; Platelet Count 296 K/uL (130-400); RDW Coefficient of Variation 23.7 % (11.5-14.5); RDW Standard Deviation 79.7 fL (36.4-46.3); Red Blood Count 2.77 M/uL (4.20-5.40)
[2023-09-02 07:17] LABS: BUN Creatinine Ratio 19.5 (10-20); Calcium 8.2 mg/dl (8.6-10.3); Creatinine Clr Calc Pharmacy 62.9 ml/min; Est GFR (Non-African American) 79.3 ml/min; Phosphorus 2.4 mg/dl (2.5-4.9)
[2023-09-02] MEDS ORDERED: SODIUM PHOSPHATE 3 MMOL/1 ML INFUSION IV STA (07:24)
[2023-09-02] MEDS: SODIUM PHOSPHATE 21 MMOL in SODIUM CHLORIDE 0.9% 500 ML IV ONE (08:47)
--- NOTE | 2023-09-02 11:50 | Hospitalist Progress Note ---
Date of Service September 02, 2023 Assessment & Plan (1) Generalized weakness: (2) Macrocytic anemia: (3) History of CVA with residual deficit: (4) DM type 2 (diabetes mellitus, type 2): Plan is a 64-year-old female who has significant PMH of DM II on insulin, hx of CVA with residual aphasia/R sided weakness, carotid artery stenosis, L subclavian occlusion, HTN, HLD, COPD, Hypothyroidism, GERD, Scleroderma/CREST syn, Mood disorder, Depression with anxiety who presents to [facility] ED on 08/29 secondary to overall feeling weak once more. Patient recently admitted on 07/31-08/17 for weakness, found to be septic with UTI and acutely anemic. Course complicated and transfusion delayed given antivel antibody presence, which is notably very rare and finding a unit is difficult-- [facility] attempted to locate a unit for patient from [place] at that time. s/p 1 Unit with robust response. Patient was optimized with IV iron, b12 IM, folate. This admission, GI on consult and planning to scope on Sunday to assess for any GI losses. Today, patient on CLD and undergoing prep for c-scope/egd tomorrow. #Acute on chronic macrocytic anemia *stable #Anti-lukasz antibody #Iron deficiency anemia #B12 deficiency -IgG +, IgM -< Western blot 23,39,41,45,93 + given patient's anemia and symptoms at presentation will opt for 2 week treatment in addition to IV abx already EOT 08/22 -History of iron deficiency, on chronic supplementation -Hgb 8 on admission, now down trending to 7.0 as of 09/01, -Held Plavix 08/29 -GI consulted No evidence of GI bleed but hemoglobin dropped to 7.0 as of 08/31/2023 Plavix remains on hold since 08/29/2023 Will have colonoscopy on Sunday and will hold Plavix and continue aspirin Discussed with the GI and will have an endoscopy on Sunday-to evaluate any source of bleeding 2 UPRBC in, plan for transfusion 09/01: -1.3 units transfused 09/01; 2/3 unit wasted given logistical delays in transfusing patient -Currently doing well, hgb 8.5 this am #General Weakness Presented with generalized weakness and minimal shortness of breath on exertion history of similar presentations with overlapping sepsis, no sepsis this admission Likely secondary to low hemoglobin Doubt any infection UA does not suggest infection and blood cultures so far negative Completed ertapenem for 48 hours empiric consult PT/OT-recommended to continue PT following discharge #Weakness #Prior CVA c/b right hemiparesis and dysarthria #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 Large area of encephalomalacia within the left MCA territory compatible with chronic infarct(s), increased in size compared to the 2018 comparison. Expect this will improve with treatment of infection Fall precautions, PT/OT Continue statin Continue Plavix Plavix has been on hold since 29 August Will continue aspirin #DM type 2 (diabetes mellitus, type 2) A1c 5.3 in Feb 2023; Repeat hemoglobin A1c less than 4 on 08/30/2023, iso anemia Hold home PO meds Basal/bolus insulin per protocol while in-patient BSG checks AC HS #Lyme IgG positive -Denies any history of lyme disease at this time, given concerns on admission will treat -Lyme IgG western positive: bands 23,39,93 positive -Completed 2 week course of doxy BID po EOT 08/22 #COPD IS, add flutter valve albuterol prn Start fluticasone/jacobo. 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 Not on medications DVT Ppx: SCDs for now Code status: FULL PCP: Renae Dispo: Admitted to PCU. Plan for rehab Admission and Anticipated Discharge Date Admission Date: August 29, 2023 Subjective Reports feeling subjectively improved after transfusion Denies any acute events overnight, eager/nervous for scope tomorrow Physical Exam Constitutional: WD/WN, vitals as above Respiratory: normal respiratory effort, lungs clear to auscultation Cardiovascular: RRR, no murmur, no edema Gastrointestinal (Abdomen): normal bowel sounds, soft, nontender, no hepatosplenomegaly Results & Data Results & Data Vital Signs (Past 12 Hours) Vital Signs Temp Pulse Pulse Resp BP Pulse Ox O2 Del Method 09/02/23 11:35 37.0 C 90 17 141/65 H 96 Room Air 09/02/23 08:12 36.4 C 88 17 131/83 97 Room Air 09/02/23 07:02 92 H 09/02/23 03:12 36.8 C 98 H 18 125/53 L 95 Room Air Laboratory Results Short CBC 09/02/23 Range/Units 05:56 WBC 11.00 H (4.8-10.8) K/ul Hgb 8.5 L (12.0-16.0) g/dl Hct 27.3 L (37.0-47.0) % Plt Count 296 (130-400) K/uL BMP 09/02/23 05:56 Sodium 136 Potassium 4.0 Chloride 104 Carbon Dioxide 30 BUN 15 Creatinine 0.77 Glucose 99 Calcium 8.2 L Medications Administered Home Medications Medication Instructions Recorded Confirmed Last Taken atorvastatin 80 mg tablet 80 mg PO HS 07/14/18 08/29/23 11/23/21 bisacodyl 5 mg tablet,delayed 5 mg PO HS PRN Constipation 07/14/18 08/29/23 07/13/18 release (Dulcolax (bisacodyl)) docusate calcium 240 mg capsule 240 mg PO DAILY PRN Constipation 07/14/18 08/29/23 07/13/18 (Stool Softener (docusate calcium)) donepezil 10 mg tablet 10 mg PO HS 07/14/18 08/29/23 11/23/21 ezetimibe 10 mg tablet 10 mg PO QAM 07/14/18 08/29/23 08/29/23 ferrous sulfate 325 mg (65 mg 650 mg PO QAM 07/14/18 08/29/23 08/29/23 iron) tablet loratadine 10 mg tablet (Claritin) 10 mg PO HS PRN allergies 07/14/18 08/29/23 11/23/21 metformin 500 mg tablet,extended 1,000 mg PO BID 07/14/18 08/29/23 08/29/23 release 24 hr mirtazapine 30 mg tablet 30 mg PO HS 07/14/18 08/29/23 11/23/21 ropinirole 0.5 mg tablet 0.5 mg PO HS 07/14/18 08/29/2322 trazodone 50 mg tablet 50 mg PO HS PRN Pain 07/14/18 08/29/23 10/26/21 venlafaxine 75 mg tablet 75 mg PO QAM 07/14/18 08/29/23 08/29/23 insulin glargine 100 unit/mL (3 24 unit subcut QAM 05/12/19 08/29/23 08/29/23 mL) subcutaneous pen (Hans Bender U-100 Insulin) clopidogrel 75 mg tablet (Plavix) 75 mg PO QAM 08/25/19 08/29/23 08/29/23 aspirin 81 mg capsule 81 mg PO DAILY 07/31/23 08/29/23 08/29/23 dulaglutide 0.75 mg/0.5 mL 0.75 mg subcut WK 07/31/23 08/29/23 Unknown subcutaneous pen injector (Trulicity) fluticasone propionate 50 2 spray intranasal DAILY 07/31/23 08/29/23 Unknown mcg/actuation nasal spray,suspension gabapentin 300 mg capsule 300 mg PO BID 07/31/23 08/29/23 08/29/23 levothyroxine 50 mcg tablet 50 mcg PO DAILY 07/31/23 08/29/23 08/29/23 pantoprazole 40 mg tablet,delayed 40 mg PO QAM 07/31/23 08/29/23 08/29/23 release cyanocobalamin (vitamin B-12) 500 1,000 mcg (2 x 500 mcg) PO QAM #30 08/16/23 08/29/23 08/29/23 mcg tablet tabs diclofenac sodium 1 % topical gel 2 g EXT TID #50 grams 08/16/23 08/29/23 Unknown (Voltaren Arthritis Pain) folic acid 1 mg tablet 1 mg PO QAM #3 tabs 08/16/23 08/29/23 08/29/23 Active Medications Generic Name Dose Route Start Last Admin Trade Name Freq PRN Reason Stop Dose Admin Aspirin 81 mg 08/30/23 09:00 09/02/23 08:47 Aspirin 81 Mg Ectab PO 09/29/23 08:59 81 mg DAILY OLIMPIA Administration Atorvastatin Calcium 80 mg 08/29/23 21:00 09/01/23 21:16 Atorvastatin 40 Mg Tab PO 09/28/23 20:59 80 mg HS OLIMPIA Administration Cyanocobalamin 1,000 mcg 08/30/23 09:00 09/02/23 08:49 Cyanocobalamin (B-12) 500 Mcg Tablet PO 09/29/23 08:59 1,000 mcg QAM OLIMPIA Administration Docusate Sodium 100 mg 08/30/23 09:00 09/02/23 08:49 Docusate Sodium 100 Mg Cap PO 09/29/23 08:59 100 mg DAILY OLIMPIA Administration Donepezil HCl 10 mg 08/29/23 21:00 09/01/23 21:15 Donepezil Hcl 10 Mg Tab PO 09/28/23 20:59 10 mg HS OLIMPIA Administration Ezetimibe 10 mg 08/30/23 09:00 09/02/23 08:49 Ezetimibe 10 Mg Tab PO 09/29/23 08:59 10 mg QAM OLIMPIA Administration Ferrous Sulfate 650 mg 08/30/23 09:00 09/02/23 08:49 Ferrous Sulfate 325 Mg Tab PO 09/29/23 08:59 650 mg QAM OLIMPIA Administration Fluticasone Propionate 2 sprays 08/30/23 09:00 09/02/23 08:48 Fluticasone Propionate Na Spr 16 Gm Btl NA 09/29/23 08:59 2 sprays DAILY OLIMPIA Administration Folic Acid 1 mg 08/30/23 09:00 09/02/23 08:49 Folic Acid 1 Mg Tab PO 09/29/23 08:59 1 mg QAM OLIMPIA Administration Gabapentin 300 mg 08/29/23 21:00 09/02/23 08:48 Gabapentin 300 Mg Cap PO 09/28/23 20:59 300 mg BID OLIMPIA Administration Sodium Phosphate 21 mmol/ 507 mls @ 88 mls/hr 09/02/23 07:30 09/02/23 08:47 Sodium Chloride IV 09/02/23 13:15 88 mls/hr ONE ONE Administration Insulin Aspart 0 units 08/29/23 21:00 09/02/23 08:43 Insulin Aspart Per Unit Charge SC 09/28/23 20:59 Not Given ACHS OLIMPIA Insulin Glargine 0 - 20 units 08/30/23 09:00 09/02/23 08:39 Lantus Per Unit Charge SQ 09/29/23 08:59 Not Given DAILY OLIMPIA Levothyroxine Sodium 50 mcg 08/30/23 06:30 09/02/23 06:31 Levothyroxine Sodium 50 Mcg Tablet PO 09/29/23 06:29 50 mcg DAILYBB OLIMPIA Administration Mirtazapine 30 mg 08/29/23 21:00 09/01/23 21:15 Mirtazapine Tab 15 Mg Tab PO 09/28/23 20:59 30 mg HS OLIMPIA Administration Ondansetron HCl 4 mg 08/30/23 23:07 09/02/23 09:41 Ondansetron Inj 2 Mg/Ml 2 Ml Vial IV 09/29/23 23:06 4 mg Q6H PRN Administration Nausea And Vomiting Pantoprazole Sodium 40 mg 08/30/23 09:00 09/02/23 08:49 Pantoprazole 40 Mg Tab PO 09/29/23 08:59 40 mg QAM OLIMPIA Administration Polyethylene Glycol 17 gm 08/30/23 09:00 09/02/23 08:48 Polyethylene (Miralax) 17 Gm Pack PO 09/29/23 08:59 17 gm DAILY OLIMPIA Administration Ropinirole HCl 0.5 mg 08/29/23 21:00 09/01/23 21:15 Ropinirole Hcl 0.25 Mg Tablet PO 09/28/23 20:59 0.5 mg HS OLIMPIA Administration Venlafaxine HCl 75 mg 08/30/23 09:00 09/02/23 08:49 Venlafaxine Hcl 37.5 Mg Tab PO 09/29/23 08:59 75 mg QAM OLIMPIA Administration (4) DM type 2 (diabetes mellitus, type 2) Diabetes mellitus complication status: without complication Diabetes mellitus intermediate insulin use: unspecified intermediate insulin use status Qualified Code(s): E11.9 - Type 2 diabetes mellitus without complications
[2023-09-02] MEDS: LAVAGE SOLUTION 4000ML PO SCH (19:57)
--- NOTE | 2023-09-03 08:20 | History & Physical Report ---
Date of Service September 03, 2023 Assessment & Plan (1) Anemia: Plan: Proceed with planned EGD and colonoscopy. Admission and Anticipated Discharge Date Admission Date: August 29, 2023 History of Present Illness Chief Complaint: here for EGD and colonoscopy. Primary Care Provider: Oseas Macdonald MD 68 y/o F here today as inpatient for EGD and colonoscopy for anemia. Prior scopes in 2019 for anemia were all negative. No overt signs of GI bleeding. Allergies Allergy/AdvReac Type Severity Reaction Status Date / Time clarithromycin AdvReac Unknown FEEL WEIRD Verified 08/23/23 14:29 Home Medications Medication Instructions Recorded Confirmed Type atorvastatin 80 mg tablet 80 mg PO HS 07/14/18 08/29/23 History bisacodyl 5 mg tablet,delayed 5 mg PO HS PRN Constipation 07/14/18 08/29/23 History release (Dulcolax (bisacodyl)) docusate calcium 240 mg capsule 240 mg PO DAILY PRN Constipation 07/14/18 08/29/23 History (Stool Softener (docusate calcium)) donepezil 10 mg tablet 10 mg PO HS 07/14/18 08/29/23 History ezetimibe 10 mg tablet 10 mg PO QAM 07/14/18 08/29/23 History ferrous sulfate 325 mg (65 mg 650 mg PO QAM 07/14/18 08/29/23 History iron) tablet loratadine 10 mg tablet (Claritin) 10 mg PO HS PRN allergies 07/14/18 08/29/23 History metformin 500 mg tablet,extended 1,000 mg PO BID 07/14/18 08/29/23 History release 24 hr mirtazapine 30 mg tablet 30 mg PO HS 07/14/18 08/29/23 History ropinirole 0.5 mg tablet 0.5 mg PO HS 07/14/18 08/29/23 History trazodone 50 mg tablet 50 mg PO HS PRN Pain 07/14/18 08/29/23 History venlafaxine 75 mg tablet 75 mg PO QAM 07/14/18 08/29/23 History insulin glargine 100 unit/mL (3 24 unit subcut QAM 05/12/19 08/29/23 History mL) subcutaneous pen (Basaglar KwikPen U-100 Insulin) clopidogrel 75 mg tablet (Plavix) 75 mg PO QAM 08/25/19 08/29/23 History aspirin 81 mg capsule 81 mg PO DAILY 07/31/23 08/29/23 History dulaglutide 0.75 mg/0.5 mL 0.75 mg subcut WK 07/31/23 08/29/23 History subcutaneous pen injector (Trulicity) fluticasone propionate 50 2 spray intranasal DAILY 07/31/23 08/29/23 History mcg/actuation nasal spray,suspension gabapentin 300 mg capsule 300 mg PO BID 07/31/23 08/29/23 History levothyroxine 50 mcg tablet 50 mcg PO DAILY 07/31/23 08/29/23 History pantoprazole 40 mg tablet,delayed 40 mg PO QAM 07/31/23 08/29/23 History release cyanocobalamin (vitamin B-12) 500 1,000 mcg (2 x 500 mcg) PO QAM #30 08/16/23 08/29/23 Rx mcg tablet tabs diclofenac sodium 1 % topical gel 2 g EXT TID #50 grams 08/16/23 08/29/23 Rx (Voltaren Arthritis Pain) folic acid 1 mg tablet 1 mg PO QAM #3 tabs 08/16/23 08/29/23 Rx Past Med/Surg History Medical History Generalized weakness Generalized weakness Restless leg syndrome Hypertension Vascular disease Mood disorder History of CVA with residual deficit approx 7 yrs > H/o L MCA stroke during attempted L SCA stenting. Has residual dysphagia Gastroparesis Esophagitis Carotid stenosis Right carotid artery 70 to 90% stenosis of internal carotid, left carotid artery 50 to 69% Hyperlipidemia DJD (degenerative joint disease), lumbar DM type 2 (diabetes mellitus, type 2) IDDM Hypothyroidism PVD (peripheral vascular disease) CREST syndrome Anemia Surgical History History of cataract surgery left History of tooth extraction Hx of esophagogastroduodenoscopy Hx of colonoscopy H/O foot surgery right History of hysterectomy History of spinal fusion lumbar S/P appendectomy (10/11/12) Family History Mother Breast cancer Uterine cancer Father Lung cancer Emphysema/COPD Social History Smoking Status: Never smoker Second Hand Exposure: No; Do You Dip or Chew Tobacco: No; Hx Alcohol Use: No Hx Substance Use: No Preferred Language: Mauritanian Communication Ability: Effective Casing Sewer Required: No Beliefs That Will Affect Care: None marital status: Single Current Living Situation: Alone and Other Current Living Situation Comment: has caregivers How many Children do You have: 1 Other Information That Helps Us Care for You: No Feels Safe at Home: Yes Safety Concerns: Feels Safe At This Time Assistive Devices: Walker Review of Systems All systems reviewed & are unremarkable except as noted in HPI & below Physical Exam Constitutional: WD/WN, vitals as above Respiratory: normal respiratory effort, lungs clear to auscultation Cardiovascular: RRR, no murmur, no edema Gastrointestinal (Abdomen): normal bowel sounds, soft, nontender, no hepatosplenomegaly Skin: no rashes, warm and dry Psychiatric: A+Ox3, euthymic affect Results & Data Vital Signs (Past 12 Hours) Vital Signs Temp Pulse Pulse Resp BP BP Pulse Ox 09/03/23 07:43 36.6 C 84 18 156/81 H 96 09/03/23 07:40 75 09/03/23 03:04 36.4 C L 90 18 150/80 H 98 09/02/23 23:09 36.5 C 83 16 157/82 H 93 09/02/23 21:58 83 O2 Del Method 09/03/23 07:43 Room Air 09/03/23 07:40 09/03/23 03:04 Room Air 09/02/23 23:09 Room Air 09/02/23 21:58 Code Status & VTE Plan VTE Prophylaxis Plan VTE Prophylaxis will be ordered: Yes
[2023-09-03] MEDS ORDERED: ATROPINE SULFATE 0.1 MG/ML 10ML SYR IV PRN (08:35)
[2023-09-03] MEDS ORDERED: ePHEDrine sulfate 50 MG/ML AMP IV PRN (08:35)
--- NOTE | 2023-09-03 08:35 | Anesthesiology Consultation ---
Date of Service September 03, 2023 Assessment & Plan Chart Review Chart Review: Acceptable Risk for Surgery ASA ASA3 Proposed Anesthesia Anesthesia Type: General and MAC Risk / Benefits Reviewed With: PT / POA / Parent / Guardian, Accepts Plan and Informed Consent Obtained History Surgery Operation Date: 09/03/23 16:30 Proposed Procedures p Colonoscopy EGD Francheska Pritchard, Height/Weight Height: 5 ft 1 in Weight: 70.3 kg Allergies Allergy/AdvReac Type Severity Reaction Status Date / Time clarithromycin AdvReac Unknown FEEL WEIRD Verified 08/23/23 14:29 Medications Home Medications Medication Instructions Recorded Confirmed Last Taken atorvastatin 80 mg tablet 80 mg PO HS 07/14/18 08/29/23 11/23/21 bisacodyl 5 mg tablet,delayed 5 mg PO HS PRN Constipation 07/14/18 08/29/23 07/13/18 release (Dulcolax (bisacodyl)) docusate calcium 240 mg capsule 240 mg PO DAILY PRN Constipation 07/14/18 08/29/23 07/13/18 (Stool Softener (docusate calcium)) donepezil 10 mg tablet 10 mg PO HS 07/14/18 08/29/23 11/23/21 ezetimibe 10 mg tablet 10 mg PO QAM 07/14/18 08/29/23 08/29/23 ferrous sulfate 325 mg (65 mg 650 mg PO QAM 07/14/18 08/29/23 08/29/23 iron) tablet loratadine 10 mg tablet (Claritin) 10 mg PO HS PRN allergies 07/14/18 08/29/23 11/23/21 metformin 500 mg tablet,extended 1,000 mg PO BID 07/14/18 08/29/23 08/29/23 release 24 hr mirtazapine 30 mg tablet 30 mg PO HS 07/14/18 08/29/23 11/23/21 ropinirole 0.5 mg tablet 0.5 mg PO HS 07/14/18 08/29/23 11/23/21 trazodone 50 mg tablet 50 mg PO HS PRN Pain 07/14/18 08/29/23 10/26/21 venlafaxine 75 mg tablet 75 mg PO QAM 07/14/18 08/29/23 08/29/23 insulin glargine 100 unit/mL (3 24 unit subcut QAM 05/12/19 08/29/23 08/29/23 mL) subcutaneous pen (Basaglelis PriceJorge U-100 Insulin) clopidogrel 75 mg tablet (Plavix) 75 mg PO QAM 08/25/19 08/29/23 08/29/23 aspirin 81 mg capsule 81 mg PO DAILY 07/31/23 08/29/23 08/29/23 dulaglutide 0.75 mg/0.5 mL 0.75 mg subcut WK 07/31/23 08/29/23 Unknown subcutaneous pen injector (Trulicity) fluticasone propionate 50 2 spray intranasal DAILY 07/31/23 08/29/23 Unknown mcg/actuation nasal spray,suspension gabapentin 300 mg capsule 300 mg PO BID 07/31/23 08/29/23 08/29/23 levothyroxine 50 mcg tablet 50 mcg PO DAILY 07/31/23 08/29/23 08/29/23 pantoprazole 40 mg tablet,delayed 40 mg PO QAM 07/31/23 08/29/23 08/29/23 release cyanocobalamin (vitamin B-12) 500 1,000 mcg (2 x 500 mcg) PO QAM #30 08/16/23 08/29/23 08/29/23 mcg tablet tabs diclofenac sodium 1 % topical gel 2 g EXT TID #50 grams 08/16/23 08/29/23 Unknown (Voltaren Arthritis Pain) folic acid 1 mg tablet 1 mg PO QAM #3 tabs 08/16/23 08/29/23 08/29/23 Active Medications Generic Name Dose Route Start Last Admin Trade Name Bryanq PRN Reason Stop Dose Admin Aspirin 81 mg 08/30/23 09:00 09/02/23 08:47 Aspirin 81 Mg Ectab PO 09/29/23 08:59 81 mg DAILY OLIMPIA Administration Atorvastatin Calcium 80 mg 08/29/23 21:00 09/02/23 20:10 Atorvastatin 40 Mg Tab PO 09/28/23 20:59 80 mg HS OLIMPIA Administration Cyanocobalamin 1,000 mcg 08/30/23 09:00 09/02/23 08:49 Cyanocobalamin (B-12) 500 Mcg Tablet PO 09/29/23 08:59 1,000 mcg QAM OLIMPIA Administration Docusate Sodium 100 mg 08/30/23 09:00 09/02/23 08:49 Docusate Sodium 100 Mg Cap PO 09/29/23 08:59 100 mg DAILY OLIMPIA Administration Donepezil HCl 10 mg 08/29/23 21:00 09/02/23 20:09 Donepezil Hcl 10 Mg Tab PO 09/28/23 20:59 10 mg HS OLIMPIA Administration Ezetimibe 10 mg 08/30/23 09:00 09/02/23 08:49 Ezetimibe 10 Mg Tab PO 09/29/23 08:59 10 mg QAM OLIMPIA Administration Ferrous Sulfate 650 mg 08/30/23 09:00 09/02/23 08:49 Ferrous Sulfate 325 Mg Tab PO 09/29/23 08:59 650 mg QAM OLIMPIA Administration Fluticasone Propionate 2 sprays 08/30/23 09:00 09/02/23 08:48 Fluticasone Propionate Na Spr 16 Gm Btl NA 09/29/23 08:59 2 sprays DAILY OLIMPIA Administration Folic Acid 1 mg 08/30/23 09:00 09/02/23 08:49 Folic Acid 1 Mg Tab PO 09/29/23 08:59 1 mg QAM OLIMPIA Administration Gabapentin 300 mg 08/29/23 21:00 09/02/23 20:10 Gabapentin 300 Mg Cap PO 09/28/23 20:59 300 mg BID OLIMPIA Administration Insulin Aspart 0 units 08/29/23 21:00 09/02/23 20:33 Insulin Aspart Per Unit Charge SC 09/28/23 20:59 Not Given ACHS OLIMPIA Insulin Glargine 0 - 20 units 08/30/23 09:00 09/02/23 08:39 Lantus Per Unit Charge SQ 09/29/23 08:59 Not Given DAILY OLIMPIA Levothyroxine Sodium 50 mcg 08/30/23 06:30 09/03/23 05:22 Levothyroxine Sodium 50 Mcg Tablet PO 09/29/23 06:29 50 mcg DAILYBB OLIMPIA Administration Mirtazapine 30 mg 08/29/23 21:00 09/02/23 20:11 Mirtazapine Tab 15 Mg Tab PO 09/28/23 20:59 30 mg HS OLIMPIA Administration Ondansetron HCl 4 mg 08/30/23 23:07 09/02/23 09:41 Ondansetron Inj 2 Mg/Ml 2 Ml Vial IV 09/29/23 23:06 4 mg Q6H PRN Administration Nausea And Vomiting Pantoprazole Sodium 40 mg 08/30/23 09:00 09/02/23 08:49 Pantoprazole 40 Mg Tab PO 09/29/23 08:59 40 mg QAM OLIMPIA Administration Polyethylene Glycol 17 gm 08/30/23 09:00 09/02/23 08:48 Polyethylene (Miralax) 17 Gm Pack PO 09/29/23 08:59 17 gm DAILY OLIMPIA Administration Ropinirole HCl 0.5 mg 08/29/23 21:00 09/02/23 20:10 Ropinirole Hcl 0.25 Mg Tablet PO 09/28/23 20:59 0.5 mg HS OLIMPIA Administration Venlafaxine HCl 75 mg 08/30/23 09:00 09/02/23 08:49 Venlafaxine Hcl 37.5 Mg Tab PO 09/29/23 08:59 75 mg QAM OLIMPIA Administration NPO Date Last Intake of Fluids: 09/02/23 Time Last Intake of Fluids: 11:59 Date Last Intake of Solids: 09/01/23 Past Medical History Medical History Generalized weakness Generalized weakness Restless leg syndrome Hypertension Vascular disease Mood disorder History of CVA with residual deficit approx 7 yrs > H/o L MCA stroke during attempted L SCA stenting. Has residual dysphagia Gastroparesis Esophagitis Carotid stenosis Right carotid artery 70 to 90% stenosis of internal carotid, left carotid artery 50 to 69% Hyperlipidemia DJD (degenerative joint disease), lumbar DM type 2 (diabetes mellitus, type 2) IDDM Hypothyroidism PVD (peripheral vascular disease) CREST syndrome Anemia Exercise / Class Metabolic Activity IV < 2 Limit ADL/Bedbound Past Family History Family History Mother Breast cancer Uterine cancer Father Lung cancer Emphysema/COPD Past Surgical History Surgical History History of cataract surgery left History of tooth extraction Hx of esophagogastroduodenoscopy Hx of colonoscopy H/O foot surgery right History of hysterectomy History of spinal fusion lumbar S/P appendectomy (10/11/12) Past Anesthesia History No Hx of Anesthesia Complications Social History Smoking Status: Never smoker Do You Dip or Chew Tobacco: No Hx Alcohol Use: No Alcohol type: hard liquor alcohol intake frequency: a few times a month Hx Substance Use: No substance use type: does not use Substance Use Type Other:: Smokes a bowl each weekly. Last smoked 1 week ago Last Used Substance: Days (ago) Last Used Substance Other:: 4-5 months. Physical Exam Vital Signs Last Vital Signs Temp 36.0 C L 09/03/23 08:16 Pulse 75 09/03/23 08:16 Resp 14 09/03/23 08:16 BP 95/65 L 09/03/23 08:16 Pulse Ox 96 09/03/23 08:16 O2 Del Method Room Air 09/03/23 08:16 ENMT Thyromental Distance: > or= 3.5 Finger Breadths Mallampati Class: II Respiratory normal respiratory effort Auscultation: + breath sounds absent Cardiovascular Rate/Rhythm: regular rate and regular rhythm Neurologic moves all extremities Psychiatric Orientation: alert and oriented x 3 Testing Laboratory Results 09/02/23 05:56 09/02/23 05:56 PT 11.8 Seconds (9.0-12.0) 08/29/23 09:20 INR 1.1 (0.9-1.1) 08/29/23 09:20 Hemoglobin A1c < 4.0 % (4.5-5.6) L 08/30/23 06:16 Urine Color Yellow 08/29/23 17:03 Urine Appearance Clear (Clear) 08/29/23 17:03 Urine pH 7.0 (4.5-7.5) 08/29/23 17:03 Ur Specific [place] 1.024 (1.000-1.030) 08/29/23 17:03 Urine Protein Negative (Negative) 08/29/23 17:03 Urine Glucose (UA) Negative (Negative) 08/29/23 17:03 Urine Ketones Negative (Negative) 08/29/23 17:03 Urine Nitrite Negative (Negative) 08/29/23 17:03 Ur Leukocyte Esterase Trace (Negative) H 08/29/23 17:03 Urine WBC (Auto) 1-5 /hpf (0-5) 08/29/23 17:03 Urine RBC (Auto) 0-4 /hpf (0-4) 08/29/23 17:03 U Hyaline Cast (Auto) 0 /lpf (0-5) 08/29/23 17:03 U Epithel Cells (Auto) 0-5 /lpf (0-5) 08/29/23 17:03 Urine Bacteria (Auto) Negative (Negative) 08/29/23 17:03 Blood Type A Negative 08/29/23 16:58 Antibody Screen NEGATIVE 08/29/23 16:58 08/29/23 19:39 Aerobic Blood Culture - Preliminary Blood No growth in Aerobic bottle after 48 hours. Anaerobic Blood Culture - Preliminary No growth in Anaerobic bottle after 48 hours. 08/29/23 19:39 Aerobic Blood Culture - Preliminary Blood No growth in Aerobic bottle after 48 hours. Anaerobic Blood Culture - Preliminary No growth in Anaerobic bottle after 48 hours. 09/03/23 07:50 POC Glucose 93
--- NOTE | 2023-09-03 09:27 | GI REPORT ---
Patient Name: Mike Orona Procedure Date: 09/03/2023 8:31 AM Date of : 1955 Admit Type: Inpatient Age: 68 Gender: Female Attending MD: Krista Pritchard DO, Procedure: Upper GI endoscopy Providers: Krista Pritchard DO Referring MD: Oseas Macdonald Indications: Iron deficiency anemia Patient Profile: This is a 68 year old female. Refer to note in patient chart for documentation of history and physical. Medicines: Monitored Anesthesia Care Complications: No immediate complications. Estimated Blood Loss: Estimated blood loss was minimal. Procedure: Pre-Anesthesia Assessment: - Prior to the procedure, a History and Physical was performed, and patient medications and allergies were reviewed. The risks and benefits of the procedure and the sedation options and risks were discussed with the patient. All questions were answered and informed consent was obtained. Patient identification and proposed procedure were verified by the physician, the nurse and the education intern in the procedure room. Mental Status Examination: alert and oriented. Airway Examination: Mallampati Class II (the uvula but not tonsillar pillars visualized). Respiratory Examination: clear to auscultation. CV Examination: RRR, no murmurs, no S3 or S4. Prophylactic Antibiotics: The patient does not require prophylactic antibiotics. Prior Anticoagulants: The patient has taken Plavix (clopidogrel), last dose was 5 days prior to procedure. ASA Grade Assessment: III - A patient with severe systemic disease. After reviewing the risks and benefits, the patient was deemed in satisfactory condition to undergo the procedure. The anesthesia plan was to use monitored anesthesia care (MAC). Immediately prior to administration of medications, the patient was re-assessed for adequacy to receive sedatives. The physical status of the patient was re-assessed after the procedure. After obtaining informed consent, the endoscope was passed under direct vision. Throughout the procedure, the patient's blood pressure, pulse, and oxygen saturations were monitored continuously. The Endoscope was introduced through the mouth, and advanced to the second part of duodenum. The upper GI endoscopy was accomplished without difficulty. The patient tolerated the procedure well. Findings: The Z-line was regular and was found 37 cm from the incisors. A small hiatal hernia was present. The examined esophagus was normal. Many non-bleeding cratered gastric ulcers one with a flat pigmented spot (Maciej Class IIc) and the remainder were clean based ([place] Class III) were found in the cardia, in the gastric fundus and in the gastric body. The largest lesion was 5 mm in largest dimension. There were around 7-8 ulcers. Biopsies were taken with a cold forceps for Helicobacter pylori testing. Verification of patient identification for the specimen was done by the physician and nurse using the patient's name and date. The duodenal bulb and second portion of the duodenum were normal. Impression: - Z-line regular, 37 cm from the incisors. - Small hiatal hernia. - Normal esophagus. - Many non-bleeding cratered gastric ulcers one with a flat pigmented spot (Maciej Class IIc) indicating recent bleeding and the remainder were clean based ([place] Class III) found in the cardia, in the gastric fundus and in the gastric body. The largest lesion was 5 mm in largest dimension. There were around 7-8 ulcers. Biopsies were taken with a cold forceps for Helicobacter pylori testing. - Normal duodenal bulb and second portion of the duodenum. Recommendation: - [facility]. - Resume previous diet. - Hold plavix if able for the next 2-3 days as biopsies of ulcers were obtained today and some areas were oozing after biopsy. - Avoid all NSAIDs - Await pathology results. - Needs repeat EGD in 12 weeks to assess for ulcer healing. - IV PPI gtt while in the hospital and on discharge convert to PO PPI 40 mg BID over the next 12 weeks. - Proceed to same day colonoscopy. Krista Pritchard, 09/03/2023 9:26:45 AM Note Initiated On: 09/03/2023 8:31 AM Number of Addenda: 0 I attest to the content of the Intraoperative Record and orders documented therein, exceptions below {[id number]}
--- NOTE | 2023-09-03 09:29 | GI REPORT ---
Patient Name: Mike Orona Procedure Date: 09/03/2023 8:30 AM Date of : 1955 Admit Type: Inpatient Age: 68 Gender: Female Attending MD: Krista Pritchard DO, Procedure: Colonoscopy Providers: Krista Pritchard DO Referring MD: Oseas Macdonald Indications: Iron deficiency anemia Patient Profile: This is a 68 year old female. Refer to note in patient chart for documentation of history and physical. Medicines: Monitored Anesthesia Care Complications: No immediate complications. Estimated Blood Loss: Estimated blood loss: none. Procedure: Pre-Anesthesia Assessment: - Prior to the procedure, a History and Physical was performed, and patient medications and allergies were reviewed. The risks and benefits of the procedure and the sedation options and risks were discussed with the patient. All questions were answered and informed consent was obtained. Patient identification and proposed procedure were verified by the physician, the nurse and the bottling machine operator in the procedure room. Mental Status Examination: alert and oriented. Airway Examination: Mallampati Class II (the uvula but not tonsillar pillars visualized). Respiratory Examination: clear to auscultation. CV Examination: RRR, no murmurs, no S3 or S4. Prophylactic Antibiotics: The patient does not require prophylactic antibiotics. Prior Anticoagulants: The patient has taken Plavix (clopidogrel), last dose was 5 days prior to procedure. ASA Grade Assessment: III - A patient with severe systemic disease. After reviewing the risks and benefits, the patient was deemed in satisfactory condition to undergo the procedure. The anesthesia plan was to use monitored anesthesia care (MAC). Immediately prior to administration of medications, the patient was re-assessed for adequacy to receive sedatives. The physical status of the patient was re-assessed after the procedure. After I obtained informed consent, the scope was passed under direct vision. Throughout the procedure, the patient's blood pressure, pulse, and oxygen saturations were monitored continuously. The Colonoscope was introduced through the anus and advanced to the cecum, identified by appendiceal orifice and ileocecal valve. The colonoscopy was performed without difficulty. The patient tolerated the procedure well. The quality of the bowel preparation was good. The ileocecal valve, appendiceal orifice, and rectum were photographed. Findings: The perianal and digital rectal examinations were normal. Internal hemorrhoids were found during retroflexion. The hemorrhoids were small. The exam was otherwise normal throughout the examined colon. Impression: - Internal hemorrhoids. - No specimens collected. Recommendation: - [facility]. - Resume previous diet. - Continue present medications. - Repeat colonoscopy in 5 years for surveillance. Krista Pritchard, 09/03/2023 9:28:35 AM Note Initiated On: 09/03/2023 8:30 AM Number of Addenda: 0 I attest to the content of the Intraoperative Record and orders documented therein, exceptions below {[id number]}
--- NOTE | 2023-09-03 09:35 | Communication Note ---
Date of Service: September 03, 2023 EGD and colonoscopy completed today for anemia. EGD with many gastric ulcers (7- 8) most clean based but 1 of them with a pigmented spot concerning for recent bleeding. Would recommend IV PPI gtt while in the hospital and then convert to PPI 40 mg BID until next EGD. Avoid all NSAIDs. EGD will be arranged outpatient in 12 weeks to assess for ulcer healing. Hold Plavix for 2-3 more days if able as biopsies were obtained today. Colonoscopy with internal hemorrhoids but otherwise normal. GI will sign off but please call back with questions. Krista Pritchard, DO Gastroenterology and Hepatology
--- NOTE | 2023-09-03 11:34 | Anesthesiology Progress Note ---
Date of Service September 03, 2023 Anesthesia Post Procedure Vital Signs Vital Signs: Temp Pulse Pulse Resp BP BP Pulse Ox 09/03/23 10:56 36.6 C 98 H 18 104/65 99 09/03/23 09:50 82 18 87/64 L 90 09/03/23 09:35 77 18 102/70 90 09/03/23 09:20 36.0 C L 78 18 160/128 H 96 09/03/23 08:16 36.0 C L 75 14 95/65 L 96 09/03/23 07:43 36.6 C 84 18 156/81 H 96 09/03/23 07:40 75 09/03/23 03:04 36.4 C L 90 18 150/80 H 98 09/02/23 23:09 36.5 C 83 16 157/82 H 93 09/02/23 21:58 83 09/02/23 20:06 36.5 C 82 18 115/65 94 09/02/23 16:50 36.5 C 83 18 118/72 93 09/02/23 15:48 88 09/02/23 11:35 37.0 C 90 17 141/65 H 96 O2 Del Method 09/03/23 10:56 Room Air 09/03/23 09:50 Room Air 09/03/23 09:35 Room Air 09/03/23 09:20 Room Air 09/03/23 08:16 Room Air 09/03/23 07:43 Room Air 09/03/23 07:40 09/03/23 03:04 Room Air 09/02/23 23:09 Room Air 09/02/23 21:58 09/02/23 20:06 Room Air 09/02/23 16:50 Room Air 09/02/23 15:48 09/02/23 11:35 Room Air Transfer of Care Handoff Completed per policy Notes Mental Status: alert / awake / arousable and participated in evaluation Nausea / Vomiting: adequately controlled Pain: adequately controlled Airway Patency, RR, SpO2: stable & adequate BP & HR: stable & adequate Hydration State: stable & adequate Anesthetic Complications: no major complications apparent and Pt Satisfied with anesthetic care
--- NOTE | 2023-09-03 12:33 | Hospitalist Progress Note ---
Date of Service September 03, 2023 Assessment & Plan (1) Generalized weakness: (2) Macrocytic anemia: (3) History of CVA with residual deficit: (4) DM type 2 (diabetes mellitus, type 2): Plan is a 64-year-old female who has significant PMH of DM II on insulin, hx of CVA with residual aphasia/R sided weakness, carotid artery stenosis, L subclavian occlusion, HTN, HLD, COPD, Hypothyroidism, GERD, Scleroderma/CREST syn, Mood disorder, Depression with anxiety who presents to [facility] ED on 08/29 secondary to overall feeling weak once more. Patient recently admitted on 07/31-08/17 for weakness, found to be septic with UTI and acutely anemic. Course complicated and transfusion delayed given antivel antibody presence, which is notably very rare and finding a unit is difficult-- [facility] attempted to locate a unit for patient from [place] at that time. s/p 1 Unit with robust response. Patient was optimized with IV iron, b12 IM, folate. Patient underwent egd and colonscopy on 09/03--which revealed multiple gastric ulcers with signs of likely bleeding ulcer. Plan to start IV PPI drip and trend hgb for additional 24 hours. Discussed findings with patient's son. Discussed that ASA will have to be discontinued and plavix continued as single agent given the findings noted in scope. #Multiple gastric ulcers -Biopsies obtained on EGD 09/03, 7-8 ulcers noted on exam; colonoscopy with stable internal hemorrhoid -Started IV PPI drip while admitted -Resume regular diet -Plan for PPI BID x 12 weeks with follow up with GI OP for repeat scope -Resume plavix in 48-72 hours #Acute on chronic macrocytic anemia *stable #Anti-lukasz antibody #Iron deficiency anemia #B12 deficiency -IgG +, IgM -< Western blot 23,39,41,45,93 + given patient's anemia and symptoms at presentation will opt for 2 week treatment in addition to IV abx already EOT 08/22 -History of iron deficiency, on chronic supplementation -Hgb 8 on admission, now down trending to 7.0 as of 09/01, -Held Plavix 08/29 -GI consulted No evidence of GI bleed but hemoglobin dropped to 7.0 as of 08/31/2023 Plavix remains on hold since 08/29/2023 Will have colonoscopy on Sunday and will hold Plavix and continue aspirin Discussed with the GI and will have an endoscopy on Sunday-to evaluate any source of bleeding 2 UPRBC in, plan for transfusion 09/01: -1.3 units transfused 09/01; 2/3 unit wasted given logistical delays in transfusing patient -Currently doing well, hgb 8.5 09/02 -Start EOD blood draws to given limited availability of tranfusion #General Weakness Presented with generalized weakness and minimal shortness of breath on exertion history of similar presentations with overlapping sepsis, no sepsis this admission Likely secondary to low hemoglobin Doubt any infection UA does not suggest infection and blood cultures so far negative Completed ertapenem for 48 hours empiric consult PT/OT-recommended to continue PT following discharge at home #Weakness #Prior CVA c/b right hemiparesis and dysarthria #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 Large area of encephalomalacia within the left MCA territory compatible with chronic infarct(s), increased in size compared to the 2018 comparison. Expect this will improve with treatment of infection Fall precautions, PT/OT Continue statin Plavix has been on hold since 29 August Will discontinue aspirin given findings on EGD and continue plavix in 2-3 days #DM type 2 (diabetes mellitus, type 2) A1c 5.3 in Feb 2023; Repeat hemoglobin A1c less than 4 on 08/30/2023, iso anemia Hold home PO meds Basal/bolus insulin per protocol while in-patient BSG checks AC HS #Lyme IgG positive -Denies any history of lyme disease at this time, given concerns on admission will treat -Lyme IgG western positive: bands 23,39,93 positive -Completed 2 week course of doxy BID po EOT 08/22 #COPD IS, add flutter valve albuterol prn Continue fluticasone/jacobo. 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 Not on medications DVT Ppx: SCDs for now Code status: FULL PCP: [place] Dispo: Admitted to [facility]. plan for discharge home in 1-2 days Admission and Anticipated Discharge Date Admission Date: August 29, 2023 Subjective Patient evaluated at bedside s/p egd/cscope Denies any acute concerns, results discussed with patient and she verbalized understanding Reports strong appetite and feeling "ok" at this time Physical Exam Constitutional: WD/WN, vitals as above Respiratory: normal respiratory effort, lungs clear to auscultation Cardiovascular: RRR, no murmur, no edema Gastrointestinal (Abdomen): normal bowel sounds, soft, nontender, no hepatosplenomegaly Results & Data Results & Data Vital Signs (Past 12 Hours) Vital Signs Temp Pulse Pulse Resp BP BP Pulse Ox 09/03/23 10:56 36.6 C 98 H 18 104/65 99 09/03/23 10:25 36.7 C 75 20 121/55 L 97 09/03/23 09:50 82 18 87/64 L 90 09/03/23 09:35 77 18 102/70 90 09/03/23 09:20 36.0 C L 78 18 160/128 H 96 09/03/23 08:16 36.0 C L 75 14 95/65 L 96 09/03/23 07:43 36.6 C 84 18 156/81 H 96 09/03/23 07:40 75 09/03/23 03:04 36.4 C L 90 18 150/80 H 98 O2 Del Method 09/03/23 10:56 Room Air 09/03/23 10:25 Room Air 09/03/23 09:50 Room Air 09/03/23 09:35 Room Air 09/03/23 09:20 Room Air 09/03/23 08:16 Room Air 09/03/23 07:43 Room Air 09/03/23 07:40 09/03/23 03:04 Room Air Medications Administered Home Medications Medication Instructions Recorded Confirmed Last Taken atorvastatin 80 mg tablet 80 mg PO HS 07/14/18 08/29/23 11/23/21 bisacodyl 5 mg tablet,delayed 5 mg PO HS PRN Constipation 07/14/18 08/29/23 07/13/18 release (Dulcolax (bisacodyl)) docusate calcium 240 mg capsule 240 mg PO DAILY PRN Constipation 07/14/18 08/29/23 07/13/18 (Stool Softener (docusate calcium)) donepezil 10 mg tablet 10 mg PO HS 07/14/18 08/29/23 11/23/21 ezetimibe 10 mg tablet 10 mg PO QAM 07/14/18 08/29/23 08/29/23 ferrous sulfate 325 mg (65 mg 650 mg PO QAM 07/14/18 08/29/23 08/29/23 iron) tablet loratadine 10 mg tablet (Claritin) 10 mg PO HS PRN allergies 07/14/18 08/29/23 11/23/21 metformin 500 mg tablet,extended 1,000 mg PO BID 07/14/18 08/29/23 08/29/23 release 24 hr mirtazapine 30 mg tablet 30 mg PO HS 07/14/18 08/29/23 11/23/21 ropinirole 0.5 mg tablet 0.5 mg PO HS 07/14/18 08/29/23 11/23/21 trazodone 50 mg tablet 50 mg PO HS PRN Pain 07/14/18 08/29/23 10/26/21 venlafaxine 75 mg tablet 75 mg PO QAM 07/14/18 08/29/23 08/29/23 insulin glargine 100 unit/mL (3 24 unit subcut QA 05/12/19 08/29/23 08/29/23 mL) subcutaneous pen (Basaglar KwikPen U-100 Insulin) clopidogrel 75 mg tablet (Plavix) 75 mg PO QAM 08/25/19 08/29/23 08/29/23 aspirin 81 mg capsule 81 mg PO DAILY 07/31/23 08/29/23 08/29/23 dulaglutide 0.75 mg/0.5 mL 0.75 mg subcut WK 07/31/23 08/29/23 Unknown subcutaneous pen injector (Trulicity) fluticasone propionate 50 2 spray intranasal DAILY 07/31/23 08/29/23 Unknown mcg/actuation nasal spray,suspension gabapentin 300 mg capsule 300 mg PO BID 07/31/23 08/29/23 08/29/23 levothyroxine 50 mcg tablet 50 mcg PO DAILY 07/31/23 08/29/23 08/29/23 pantoprazole 40 mg tablet,delayed 40 mg PO QAM 07/31/23 08/29/23 08/29/23 release cyanocobalamin (vitamin B-12) 500 1,000 mcg (2 x 500 mcg) PO QAM #30 08/16/23 08/29/23 08/29/23 mcg tablet tabs diclofenac sodium 1 % topical gel 2 g EXT TID #50 grams 08/16/23 08/29/23 Unknown (Voltaren Arthritis Pain) folic acid 1 mg tablet 1 mg PO QAM #3 tabs 08/16/23 08/29/23 08/29/23 Active Medications Generic Name Dose Route Start Last Admin Trade Name Freq PRN Reason Stop Dose Admin Atorvastatin Calcium 80 mg 08/29/23 21:00 09/02/23 20:10 Atorvastatin 40 Mg Tab PO 09/28/23 20:59 80 mg HS OLIMPIA Administration Cyanocobalamin 1,000 mcg 08/30/23 09:00 09/02/23 08:49 Cyanocobalamin (B-12) 500 Mcg Tablet PO 09/29/23 08:59 1,000 mcg QAM OLIMPIA Administration Docusate Sodium 100 mg 08/30/23 09:00 09/02/23 08:49 Docusate Sodium 100 Mg Cap PO 09/29/23 08:59 100 mg DAILY OLIMPIA Administration Donepezil HCl 10 mg 08/29/23 21:00 09/02/23 20:09 Donepezil Hcl 10 Mg Tab PO 09/28/23 20:59 10 mg HS OLIMPIA Administration Ezetimibe 10 mg 08/30/23 09:00 09/02/23 08:49 Ezetimibe 10 Mg Tab PO 09/29/23 08:59 10 mg QAM OLIMPIA Administration Ferrous Sulfate 650 mg 08/30/23 09:00 09/02/23 08:49 Ferrous Sulfate 325 Mg Tab PO 09/29/23 08:59 650 mg QAM OLMIPIA Administration Fluticasone Propionate 2 sprays 08/30/23 09:00 09/02/23 08:48 Fluticasone Propionate Na Spr 16 Gm Btl NA 09/29/23 08:59 2 sprays DAILY OLIMPIA Administration Folic Acid 1 mg 08/30/23 09:00 09/02/23 08:49 Folic Acid 1 Mg Tab PO 09/29/23 08:59 1 mg QAM OLIMPIA Administration Gabapentin 300 mg 08/29/23 21:00 09/02/23 20:10 Gabapentin 300 Mg Cap PO 09/28/23 20:59 300 mg BID OLIMPIA Administration Insulin Aspart 0 units 08/29/23 21:00 09/03/23 09:15 Insulin Aspart Per Unit Charge SC 09/28/23 20:59 Not Given ACHS OLIMPIA Insulin Glargine 0 - 20 units 08/30/23 09:00 09/03/23 10:15 Lantus Per Unit Charge SQ 09/29/23 08:59 Not Given DAILY OLIMPIA Levothyroxine Sodium 50 mcg 08/30/23 06:30 09/03/23 05:22 Levothyroxine Sodium 50 Mcg Tablet PO 09/29/23 06:29 50 mcg DAILYBB OLIMPIA Administration Mirtazapine 30 mg 08/29/23 21:00 09/02/23 20:11 Mirtazapine Tab 15 Mg Tab PO 09/28/23 20:59 30 mg HS OLIMPIA Administration Ondansetron HCl 4 mg 08/30/23 23:07 09/02/23 09:41 Ondansetron Inj 2 Mg/Ml 2 Ml Vial IV 09/29/23 23:06 4 mg Q6H PRN Administration Nausea And Vomiting Polyethylene Glycol 17 gm 08/30/23 09:00 09/02/23 08:48 Polyethylene (Miralax) 17 Gm Pack PO 09/29/23 08:59 17 gm DAILY OLIMPIA Administration Ropinirole HCl 0.5 mg 08/29/23 21:00 09/02/23 20:10 Ropinirole Hcl 0.25 Mg Tablet PO 09/28/23 20:59 0.5 mg HS OLIMPIA Administration Venlafaxine HCl 75 mg 08/30/23 09:00 09/02/23 08:49 Venlafaxine Hcl 37.5 Mg Tab PO 09/29/23 08:59 75 mg QAM OLIMPIA Administration (4) DM type 2 (diabetes mellitus, type 2) Diabetes mellitus complication status: without complication Diabetes mellitus snf insulin use: unspecified snf insulin use status Qualified Code(s): E11.9 - Type 2 diabetes mellitus without complications
[2023-09-03] MEDS ORDERED: PANTOPRAZOLE BOLUS/DRIP IV STA (12:41)
[2023-09-03] MEDS: PANTOprazole 40 MG in DEXTROSE 5% MINI-B 100 ML IV SCH (13:00)
[2023-09-03] MEDS: PANTOprazole 80 MG in DEXTROSE 5% 100 ML IV ONE (13:58)
[2023-09-03] MEDS: LIDOCAINE 2% 2 ML VIAL/AMP(20MG/ML) INFIL ONE (14:33)
[2023-09-03] MEDS: PROPOFOL IV EMULSION 10 MG/ML 20 ML VIAL IV ONE (14:34)
[2023-09-04 06:34] LABS: Hematocrit (blood only) 26.9 % (37.0-47.0); Hemoglobin 8.1 g/dl (12.0-16.0); Mean Corpuscular Hemoglobin 30.9 pg (25.0-34.0); Mean Corpuscular Hgb Conc 30.1 g/dL (32.0-36.0); Mean Corpuscular Volume 102.7 fL (80.0-100.0); Mean Platelet Volume 10.1 fL (9.4-12.4); Nucleated RBC # (auto) 0.25 K/uL (0.00-0.12); Nucleated RBC % (auto) 2.6 %; Platelet Count 401 K/uL (130-400); RDW Standard Deviation 83.2 fL (36.4-46.3); Red Blood Count 2.62 M/uL (4.20-5.40); White Blood Count 9.69 K/ul (4.8-10.8)
[2023-09-04 07:08] LABS: BUN Creatinine Ratio 8.2 (10-20); Calcium 8.4 mg/dl (8.6-10.3); Creatinine Clr Calc Pharmacy 49.9 ml/min; Est GFR (African American) 68.7 ml/min; Est GFR (Non-African American) 59.3 ml/min; Potassium 3.6 mmol/L (3.5-5.1)
--- NOTE | 2023-09-04 11:58 | Discharge Summary ---
Discharge Summary Date of Service September 04, 2023 Notes For Next Care Provider Medication Changes From Visit Discontinued Iron supplement Discontinued ASA Held Plavix until 09/08/2023 Increased pantoprazole to 40mg BID Admission HPI Per Admitting Provider 68 y/o F here today as inpatient for EGD and colonoscopy for anemia. Prior scopes in 2019 for anemia were all negative. No overt signs of GI bleeding. Admission Exam Per Admitting Provider Physical Exam: Vitals signs as noted above General Appearance:Moderately built and nourished, no apparent distress, chronically appearing Head: normocephalic, Atraumatic Eyes: normal inspection, EOMI Neck: supple, Trachea midline Respiratory/Chest: Decreased breath sounds, CTA, No accessory muscle use Cardiovascular: S1, S2, No murmur Abdomen/GI:Soft, Non tender, Bowel sounds present Extremities/Musculoskeletal:normal inspection, no edema Neurologic/Psych:AAOX3, right upper and lower extremity 4/5, otherwise grossly no focal deficits, + slow to respond Skin: normal color, warm Principal Dx & Hospital Course #1 = Principal Diagnosis (1) Generalized weakness: (2) Macrocytic anemia: (3) History of CVA with residual deficit: (4) DM type 2 (diabetes mellitus, type 2): Plan is a 64-year-old female who has significant PMH of DM II on insulin, hx of CVA with residual aphasia/R sided weakness, carotid artery stenosis, L subclavian occlusion, HTN, HLD, COPD, Hypothyroidism, GERD, Scleroderma/CREST syn, Mood disorder, Depression with anxiety who presents to [facility] ED on 08/29 secondary to overall feeling weak once more. Patient recently admitted on 07/31-08/17 for weakness, found to be septic with UTI and acutely anemic. Course complicated and transfusion delayed given antivel antibody presence, which is notably very rare and finding a unit is difficult-- [facility] attempted to locate a unit for patient from [place] at that time. s/p 1 Unit with robust response. Patient was optimized with IV iron, b12 IM, folate. Patient underwent egd and colonscopy on 09/03--which revealed multiple gastric ulcers with signs of likely bleeding ulcer. Plan to start IV PPI drip and trend hgb for additional 24 hours. Discussed findings with patient's son. Discussed that ASA will have to be discontinued and plavix continued as single agent given the findings noted in scope. Additional, home iron discontinued to remove other agent capable of gastric ulcers. On day of discharge, patient was excited to get home and denied any acute concerns. She is eager to continue home PT. She denies any new concerns or signs of bleed. #Multiple gastric ulcers -Biopsies obtained on EGD 09/03, 7-8 ulcers noted on exam; colonoscopy with stable internal hemorrhoid -Started IV PPI drip while admitted -Resume regular diet -Plan for PPI BID x 12 weeks with follow up with GI OP for repeat scope -Resume plavix on 09/08 #Acute on chronic macrocytic anemia *stable #Anti-lukasz antibody #Iron deficiency anemia #B12 deficiency -IgG +, IgM -< Western blot 23,39,41,45,93 + given patient's anemia and symptoms at presentation will opt for 2 week treatment in addition to IV abx already EOT 08/22 -History of iron deficiency, on chronic supplementation -Hgb 8 on admission, now down trending to 7.0 as of 09/01, -Held Plavix 08/29 -GI consulted No evidence of GI bleed but hemoglobin dropped to 7.0 as of 08/31/2023 Plavix remains on hold since 08/29/2023 Will have colonoscopy on Sunday and will hold Plavix and continue aspirin Discussed with the GI and will have an endoscopy on Sunday-to evaluate any source of bleeding 2 UPRBC in, plan for transfusion 09/01: -1.3 units transfused 09/01; 2/3 unit wasted given logistical delays in transfusing patient -Currently doing well, hgb 8.1 09/04 #General Weakness Presented with generalized weakness and minimal shortness of breath on exertion history of similar presentations with overlapping sepsis, no sepsis this admission Likely secondary to low hemoglobin Doubt any infection UA does not suggest infection and blood cultures so far negative Completed ertapenem for 48 hours empiric consult PT/OT-recommended to continue PT following discharge at home #Weakness #Prior CVA c/b right hemiparesis and dysarthria #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 Large area of encephalomalacia within the left MCA territory compatible with chronic infarct(s), increased in size compared to the 2018 comparison. Expect this will improve with treatment of infection Fall precautions, PT/OT Continue statin Plavix has been on hold since 29 August-Resume 09/08/2022 Disocntinue ASA given multiple GI ulcers #DM type 2 (diabetes mellitus, type 2) A1c 5.3 in Feb 2023; Repeat hemoglobin A1c less than 4 on 08/30/2023, iso anemia Hold home PO meds Basal/bolus insulin per protocol while in-patient BSG checks AC HS #Lyme IgG positive -Denies any history of lyme disease at this time, given concerns on admission will treat -Lyme IgG western positive: bands 23,39,93 positive -Completed 2 week course of doxy BID po EOT 08/22 #COPD IS, add flutter valve albuterol prn Continue fluticasone/jacobo. 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 Not on medications Discharge Exam Constitutional WD/WN, vitals as above Respiratory normal respiratory effort, lungs clear to auscultation Cardiovascular RRR, no murmur, no edema Gastrointestinal (Abdomen) normal bowel sounds, soft, nontender, no hepatosplenomegaly Updated Medication List Medication Instructions Recorded Confirmed Type atorvastatin 80 mg tablet 80 mg PO HS 07/14/18 08/29/23 History bisacodyl 5 mg tablet,delayed 5 mg PO HS PRN Constipation 07/14/18 08/29/23 History release (Dulcolax (bisacodyl)) docusate calcium 240 mg capsule 240 mg PO DAILY PRN Constipation 07/14/18 08/29/23 History (Stool Softener (docusate calcium)) donepezil 10 mg tablet 10 mg PO HS 07/14/18 08/29/23 History ezetimibe 10 mg tablet 10 mg PO QAM 07/14/18 08/29/23 History loratadine 10 mg tablet (Claritin) 10 mg PO HS PRN allergies 07/14/18 08/29/23 History metformin 500 mg tablet,extended 1,000 mg PO BID 07/14/18 08/29/23 History release 24 hr mirtazapine 30 mg tablet 30 mg PO HS 07/14/18 08/29/23 History ropinirole 0.5 mg tablet 0.5 mg PO HS 07/14/18 08/29/23 History trazodone 50 mg tablet 50 mg PO HS PRN Pain 07/14/18 08/29/23 History venlafaxine 75 mg tablet 75 mg PO QAM 07/14/18 08/29/23 History insulin glargine 100 unit/mL (3 24 unit subcut QAM 05/12/19 08/29/23 History mL) subcutaneous pen (Basaglar KwikPen U-100 Insulin) clopidogrel 75 mg tablet (Plavix) 75 mg PO QAM 08/25/19 08/29/23 History dulaglutide 0.75 mg/0.5 mL 0.75 mg subcut WK 07/31/23 08/29/23 History subcutaneous pen injector (Trulicity) fluticasone propionate 50 2 spray intranasal DAILY 07/31/23 08/29/23 History mcg/actuation nasal spray,suspension gabapentin 300 mg capsule 300 mg PO BID 07/31/23 08/29/23 History levothyroxine 50 mcg tablet 50 mcg PO DAILY 07/31/23 08/29/23 History cyanocobalamin (vitamin B-12) 500 1,000 mcg (2 x 500 mcg) PO QAM #30 08/16/23 08/29/23 Rx mcg tablet tabs diclofenac sodium 1 % topical gel 2 g EXT TID #50 grams 08/16/23 08/29/23 Rx (Voltaren Arthritis Pain) folic acid 1 mg tablet 1 mg PO QAM #3 tabs 08/16/23 08/29/23 Rx pantoprazole 40 mg tablet,delayed 40 mg PO BID #60 tabs 09/04/23 08/29/23 Rx release Hospital Stay Data Consultations 08/29/23 15:50 ED Decision to Admit Stat 08/29/23 17:54 Consult Gastroenterology Routine Procedures Performed Operation Date: 09/03/23 16:30 Actual Procedures s EGD Biopsy Cytology(Not Applicable) - Krista Pritchard DO p Colonoscopy(Not Applicable) - Krista Pritchard DO Diagnostic Imagining Performed 08/29/23 11:55 CT abd pelvis IV con only Stat Pending Results Patient Have Any Pending Studies at Discharge: No Discharge Instructions Given to Patient (Per Discharging Provider) You were admitted because of weakness and found to have acute on chronic anemia. EGD and colonoscopy were pursued. The colonoscopy revealed internal hemorrhoids -Take great care to prevent constipation or straining while using the bathroom. The EGD revealed multiple ulcers -This is likely the source of your blood loss and recurrent hospitalizations -Biopsies were taken and are pending Please continue pantoprazole 40mg two times a day until told otherwise by Gastroenterology. You will have a follow up scheduled for repeat EGD to look at your stomach and assess healing of ulcers. This will be in about 12 weeks. Total Time Total Time Spent Total Time Spent (In Minutes): 45
== END 2023-09-04 15:20 | disposition home health service (06) | DRG 378 ==
LOC: ED 08:28 → 2N 16:44 → SUATTDRO 16:44 → 2N 17:12
DX: F39 Unspecified mood [affective] disorder; E53.8 Deficiency of other specified B group vitamins; I10 Essential (primary) hypertension; D50.0 Iron deficiency anemia secondary to blood loss (chronic); R53.1 Weakness; R76.8 Other specified abnormal immunological findings in serum; E03.9 Hypothyroidism, unspecified; E11.43 Type 2 diabetes mellitus with diabetic autonomic (poly)neuropathy; Z88.1 Allergy status to other antibiotic agents; K25.4 Chronic or unspecified gastric ulcer with hemorrhage; R42 Dizziness and giddiness; I69.321 Dysphasia following cerebral infarction; M34.1 CR(E)ST syndrome; I69.351 Hemiplegia and hemiparesis following cerebral infarction affecting right dominant side; Z79.4 Long term (current) use of insulin; D53.9 Nutritional anemia, unspecified; Z79.85 Long-term (current) use of injectable non-insulin antidiabetic drugs; E11.51 Type 2 diabetes mellitus with diabetic peripheral angiopathy without gangrene; J44.9 Chronic obstructive pulmonary disease, unspecified; I69.391 Dysphagia following cerebral infarction; Z79.84 Long term (current) use of oral hypoglycemic drugs